=== PATIENT | female | born 1945 | race Caucasian/White ===

== ENCOUNTER 2017-01-28 01:22 | Observation (INO) | payer MEDICARE, MEDICAID ==
[2017-01-28] VITALS (37 sets, daily range): BP systolic 93–132; BP diastolic 49–85; PULSE 79–102; RESP 16–30; Ht 157.5 cm; Wt 75.4 kg
[~2017-01-28] VITALS: Ht 157.5 cm; Wt 75.4 kg
[~2017-01-28 01:22] MED LIST: ASPI81TA3 PO; ERGO500014 PO; FER325 PO; FOLI-49 PO; LOSA1TAB20 PO; METO-429 PO
[2017-01-28] MEDS ORDERED: FUROSEMIDE 20 MG INJ IV STA (01:24)
[2017-01-28] MEDS ORDERED: NITROGLYCERIN 50 MG/D5W (PMX) 250 ML IV STA (01:24)
[2017-01-28] MEDS ORDERED: ENALAPRILAT 1.25 MG INJ IV STA (01:24)
[2017-01-28 01:55] LABS: ADD SCAN DIFF NO
[2017-01-28 02:03] LABS: ABNORMAL IP MESSAGE 1; HEMATOCRIT 34.3 % (37.0-47.0); HEMOGLOBIN 10.3 g/dl (12.0-16.0); MEAN CORPUSCULAR HEMOGLOBIN 25.9 pg (29.0-33.0); MEAN CORPUSCULAR VOLUME 86.2 fl (82.0-101.0); PLATELET COUNT 118 10^3/UL (140-415); RED BLOOD COUNT 3.98 10^6/ul (4.20-5.40); RED CELL DISTRIBUTION WIDTH 18.4 % (11.5-14.5); WHITE BLOOD COUNT 6.9 10^3/ul (4.8-10.8)
[2017-01-28 02:07] LABS: INR 0.88; PROTIME 11.9 Sec (12.2-14.2); PT RATIO 0.9
[2017-01-28 02:08] LABS: POTASSIUM 3.7 mmol/L (3.5-5.1)
[2017-01-28 02:10] LABS: CREATININE 0.48 mg/dl (0.44-1.00)
[2017-01-28 02:11] LABS: CALCIUM 8.8 mg/dl (8.4-10.2)
[2017-01-28 02:23] LABS: TROPONIN-I 0.052 ng/ml (0.00-0.12)
--- NOTE | 2017-01-28 02:27 | RADRPT ---
PROCEDURE: XR Chest. CLINICAL INDICATION: Chest pain. TECHNIQUE: Single frontal view of the chest was obtained COMPARISON: Chest dated 08/04/2016 FINDINGS: Cardiomegaly and atherosclerotic calcifications in the thoracic aorta. Pulmonary vascular ingestion bilateral patchy air space disease with new bilateral pleural effusions, right greater than left. There is no pneumothorax. IMPRESSION: Moderate failure. RPTAT: [facility] Physician Carlos Date Time Electronically viewed and signed by Horace Aguila Physician on 01/28/2017 02:26 RS/
[2017-01-28 03:00] LABS: BASOPHIL # 0.1 10^3/ul (0.0-0.1); EOSINOPHILS # 0.3 10^3/ul (0.0-0.5); LYMPHOCYTES # 1.4 10^3/ul (0.8-2.9); MONOCYTE # 0.2 10^3/ul (0.3-0.9); NEUTROPHIL # 4.2 10^3/ul (1.6-7.5)
[2017-01-28] MEDS ORDERED: ACETAMINOPHEN 500 MG TAB PO PRN (03:00)
[2017-01-28] MEDS ORDERED: ERGOCALCIFEROL 50,000 UNIT CAP PO SCH (03:00)
[2017-01-28] MEDS: ALBUTEROL 0.083% (NEB) 2.5 MG/3 ML AMP HHN SCH ×3 (03:00→16:00)
[2017-01-28 03:01] LABS: PLATELET ESTIMATE PLT APPEAR ADEQUATE
--- NOTE | 2017-01-28 03:12 | ERA ---
ER Documentation Chief Complaint Date/Time DATE: 01/28/17 TIME: 03:08 Chief Complaint SOB,hx CHF HPI This is a 71-year-old female who presents to the emergency room for evaluation of shortness of breath. This patient was brought in by ambulance from home. She was placed on a CPAP in route to the hospital due to respiratory distress and hypoxia. According to EMS this patient's oxygen level was 84% on room air. The patient was gasping for air and was given nitroglycerin prior to arrival and was placed on a CPAP. The patient does have a history of non-Hodgkin's lymphoma and denies any fever. Patient is denying any chest pain at this time. ROS All systems reviewed and are negative except as per history of present illness. Medications Home Meds Reported Medications Ferrous Sulfate* (Ferrous Sulfate*) 325 Mg Tabec, 325 MG PO DAILY, TAB 08/04/16 Metoprolol Tartrate* (Lopressor*) 50 Mg Tab, 50 MG PO BID, #60 TAB 08/04/16 Folic Acid* (Folic Acid*) 1 Mg Tablet, 1 MG PO DAILY, TAB 08/04/16 Ergocalciferol* (Drisdol* (Vitamin D2)) 50,000 Unit Capsule, 30672 UNIT PO Q7D, CAP 08/04/16 Losartan-Hydrochlorothiazide (Losartan-HCTZ) 100-25 Mg Tab, 1 TAB PO DAILY, TAB 08/04/16 Aspirin* (Aspirin* Chew) 81 Mg Tab.chew, 81 MG PO DAILY, TAB.CHEW 08/04/16 Allergies Allergies: Coded Allergies: vancomycin (Verified Allergy, Mild, REDNESS AND ITCHING, 08/04/16) Iodine and Iodide Containing Produc (Verified Allergy, Unknown, 01/28/17) PMhx/Soc History of Surgery: Yes (stent placement x3) Anesthesia Reaction: No Hx 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 Disorder: No Hx Respiratory Disorders: No Hx Cardiac Disorders: Yes (MD, HTN, Cardiac stents x3) Hx Psychiatric Problems: Yes (Anxiety, depression) Hx Miscellaneous Medical Probl: Yes (Anemia, Lymphoma) Hx Alcohol Use: No Hx Substance Use: No Hx Tobacco Use: No Smoking Status: Never smoker Physical Exam Vitals Vital Signs Date Time Temp Pulse Resp B/P Pulse Ox O2 Delivery O2 Flow Rate FiO2 01/28/17 02:25 85 20 120/71 100 01/28/17 02:04 83 24 98/55 100 CPAP 01/28/17 01:28 98.9 117 28 179/130 99 01/28/17 01:25 102 100 50 Physical Exam INITIAL VITAL SIGNS: Reviewed by me GENERAL: The patient is well developed however she is in moderate respiratory distress on a CPAP HEENT: Pupils equal, round, and reactive to light. EOMI. There is no scleral icterus. NECK: C-spine is soft and supple, there is no meningismus. There is no cervical lymphadenopathy. LUNGS: Coarse breath sounds bilaterally with diffuse rales auscultated in the upper and lower lobes, tachypnea HEART: Tachycardic, no murmurs, clicks, rubs or gallops. ABDOMEN: Soft, non-tender, non-distended. There are bowel sounds in all four quadrants. No rebound or guarding. EXTREMITIES: There is no peripheral cyanosis or edema. No focal swelling or erythema. NEUROLOGICAL: The patient moves all four extremities with 5/5 strength. Cranial nerves II - XII are intact. Normal gait. Alert and oriented SKIN: There is no apparent rash or petechiae. HEME/LYMPHATIC: There is no evidence of excessive bruising or lymphedema. PSYCHIATRIC: The patient does not appear anxious or depressed. Result Diagram: 01/28/17 0131 01/28/17 0131 Results 24 hrs Laboratory Tests Test 01/28/17 01:31 Activated Partial Thromboplast Time Pending Anion Gap 19 B-Type Natriuretic Peptide 3600PG/ML Band Neutrophils % 4.0% Basophils # 0.110^3/ul Basophils % 1.0% Blood Urea Nitrogen 13mg/dl Calcium Level 8.8mg/dl Carbon Dioxide Level 22mmol/L Chloride Level 105mmol/L Creatinine 0.48mg/dl Eosinophils # 0.310^3/ul Eosinophils % 4.0% Glucose Level 159mg/dl Hematocrit 34.3% Hemoglobin 10.3g/dl INR International Normalized Ratio 0.88 Lymphocytes # 1.410^3/ul Lymphocytes % 21.0% Mean Corpuscular Hemoglobin 25.9pg Mean Corpuscular Hemoglobin Concent 30.0g/dl Mean Corpuscular Volume 86.2fl Mean Platelet Volume fl Monocytes # 0.210^3/ul Monocytes % 3.0% Neutrophils # 4.210^3/ul Neutrophils % 61.0% Platelet Count 56050^3/UL Platelet Estimate PLT APPEAR ADEQUATE Potassium Level 3.7mmol/L Prothrombin Time 11.9Sec Prothrombin Time Ratio 0.9 Reactive Lymphocytes % 6.0% Red Blood Count 3.9810^6/ul Red Cell Distribution Width 18.4% Sodium Level 142mmol/L Troponin I 0.052ng/ml White Blood Count 6.910^3/ul Current Medications Medications (Trade) Dose Ordered Sig/Rafa Route PRN Reason Start Time Stop Time Status Last Admin Dose Admin Enalaprilat 1.25 mg 1.25 mg ONCE STAT IV 01/28/17 01:24 01/28/17 01:26 DC 01/28/17 01:53 Nitroglycerin/ Dextrose (Nitroglycerin 50 Mg/D5W (Pmx)) 250 ml @ 6 mls/hr ONCE STAT IV 01/28/17 01:24 01/29/17 19:03 01/28/17 01:54 Furosemide (Lasix) 60 mg ONCE STAT IV 01/28/17 01:24 01/28/17 01:26 DC 01/28/17 01:55 Procedures/MDM Chest X-ray 1V Interpreted by me: Soft Tissue: Pulmonary vascular congestion with mild pulmonary effusions Bones: No acute abnormalities Mediastinum/Cardiac Silhouette/Lungs: [No acute abnormalities] EKG: Rate/Rhythm: [Normal Sinus Rhythm] QRS, ST, T-waves: [No changes consistent w/ acute ischemia] Impression: [No evidence of ischemia or arrhythmia] This 71-year-old female presents to the emergency room for evaluation of shortness of breath. When I evaluated this patient she had coarse breath sounds bilaterally and was in moderate respiratory distress. Her pulse ox was 84% prior to arrival in the emergency room. This patient was on a CPAP when I evaluated her. I transitioned her to BiPAP. The patient was started on nitroglycerin drip. She was given Vasotec 1.25 mg, was given 40 mg of Lasix. Pulmonary evaluation this patient states she is feeling better at this time. Her nitroglycerin drip was at 100 g and she will be placed in the intensive care unit at this time for acute hypoxic respiratory failure, acute CHF exacerbation. The patient will be admitted to her primary care physician, Dr. Aguilar. Critical Care: Excluding all billable procedures Time: 36 minutes Treatments/Evaluations: Emergent and rapid respiratory assessment and management with continuous monitoring. Advanced airway equipment at the ready, while the patient's respiratory symptoms were stabilized. Departure Diagnosis: Primary Impression: Acute and chronic respiratory failure with hypoxia Additional Impressions: Acute decompensated heart failure Thrombocytopenia Normocytic anemia Condition: Stable SORAIDA COTO DO Jan 28, 2017 03:12
--- NOTE | 2017-01-28 03:24 | HP ---
Date/Time of Note Date/Time of Note DATE: 01/28/17 TIME: 03:24 Assessment/Plan VTE Prophylaxis VTE Prophylaxis Intervention: ambulation, anti-embolic stocking, LMWH Lines/Catheters IV Catheter Type (from Nrs): [place] [employer] Central line still needed: No Urinary Cath still in place: Yes Reason Cath still needed: urinary retention Assessment/Plan Assessment/Plan 1. Severe respiratory distress 2.Elevated D-dimer-r/o PE. 3. Hypertension, now hypotensive on NTG drip-will taper down. 4. Pleural effusion 5. History of Hodgkin lymphoma- s/p chemothereapy and hydration 3-4 days ago. 6. Osteoarthritis with pain syndrome 7. Anxiety disorder. 8. Depression-s/p loss of . 9. Urinary incontinence. 10. Osteoporosis. 11. Kyphosis. 12. Postmenopausal syndrome. 13. Anemia with nl iron. 14. Brain atrophy on CT. 15. Left sphenoid sinusitis on CT. 16. Left ventricular hypertrophy. 17. Urinary incontinence. 18.Cerebrovascular accident, with left facial drooling, left facial weakness, with slurred speech and dysphagia. Mild left upper extremity weakness. 19. S/P forceful; diuresis. 20.Medication noncompliance. 21. HPI/ROS Admit Date/Time Admit Date/Time Severe sob. This patient was brought in by ambulance from home. She was placed on a CPAP in route to the hospital due to respiratory distress and hypoxia. EMS checked oxygen level was 84% on room air. The patient was grasping for air and was given nitroglycerin prior to arrival. The patient does have a history of non-Hodgkin's lymphoma.She was feeling feverish but her temp. was normal. Patient is having chest pain on and off with fear of becaouse there was no air. "If no paramedics and ER I will not be alive". ROS Subjective hx not possible: pt critical Constitutional: diaphoresis, disoriented, fatigue, improved, nausea, poor po, weight change (2 lb x 5 days.), No chills, No febrile, No no complaints, No other Eyes: redness, visual change, No discharge, No no complaints, No other, No pain ENT: congestion, dysphagia, No bleeding, No discharge, No no complaints, No other, No pain, No sore throat Respiratory: cough, shortness of breath, No no complaints, No other, No pain, No pleuritic pain, No sputum, No wheezing Cardiovascular: chest pain, lightheadedness, orthopenea, palpitations, paroxysmal nocturnal dyspnea, No edema, No no complaints, No other Gastrointestinal: constipation, decreased appetite, flatus, nausea, No blood, No diarrhea, No no complaints, No other, No pain, No passing stool , No vomiting Genitourinary: dysuria Musculoskeletal: bone/joint pain, neck pain Skin: pruritis, skin lesions (tags.), No bruising, No erythema, No laceration, No no complaints, No other, No rash Neurologic: confusion, dizziness, headache Endocrine: dry skin, polydypsia, weight change Lymphatic: No adenopathy, No lymphadema, No no complaints, No other, No tender nodes Psychological: anxiety, confusion, depression, No nl mood/affect, No no complaints, No other, No suicidal Immunologic: No immunodeficiency, No no complaints, No other, No pruritis, No rhinitis, No urticaria PMH/Family/Social Past Medical History Medical History: angina, colitis, congestive heart failure, coronary artery disease, deep vein thrombosis, diabetes, GERD, high cholesterol, hypertension, irritable bowel syndrome, urinary tract infection Family History Significant Family History: heart disease, diabetes, hypertension Social History Alcohol Use: none Smoking Status: Never smoker Drug Use: none Exam/Review of Systems Vital Signs Vitals Vital Signs Date Time Temp Pulse Resp B/P Pulse Ox O2 Delivery O2 Flow Rate FiO2 01/28/17 02:25 85 20 120/71 100 01/28/17 02:04 CPAP 01/28/17 01:28 98.9 01/28/17 01:25 50 Exam Constitutional: alert, distress, frail, oriented, well developed, No non-verbal, No other Psych: anxiety, confusion, depression, No nl mood/affect, No no complaints, No other, No suicidal Head: atraumatic, No hematomas, No lacerations, No normocephalic, No other Eyes: EOMI, PERRL, nl lids, other, No fundi, disc, No icteric, No nl conjunctiva, No nl sclera ENMT: mucosa pink and moist (pale.), No intubated, No nl external ears & nose, No nl lips & teeth, No nl nasal mucosa & septum, No other, No tympanic membranes Neck: bruits, jvd, nuchal rigidity, No masses, No non-tender, No other, No supple, No thyromegaly Respiratory: congested cough, crackles/rales, diminished breath sounds, labored breathing, No clear to auscultation, No intercostal retraction, No normal air movement, No other, No respirations, No tactile fremitus, No wheezing Cardiovascular: bruits, edema (trace.), irregular rhythm (4 complex vt. on tracing.), jugular venous distention (JVD), systolic murmur Gastrointestinal: distended, nl liver, spleen, soft, No ascites, No bowel sounds, No firm, No hepatomegaly, No mass, No non-tender , No other, No rebound or guarding, No splenomegaly, No surgical scars, No tender Genitourinary - Female: other (refused.) Musculoskeletal: joint tenderness, muscle tone, muscle weakness, nl gait and stance, No nl extremities to inspection, No other, No range of motion, No spine non- tender, No swelling Extremities: calf tenderness, other (restless leg syndrome.) 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: COUNSELING AIDE II-XII intact (decreased hearing and vision.), confused, lethargic Skin: diaphoresis Labs Result Diagram: 01/28/17 0131 01/28/17 0131 Medications Medications Current Medications Acetaminophen (Tylenol Tab) 500 mg Q8 PRN PO pain and temp. more then 99F; Start 01/28/17 at 03:00 Aspirin (Aspirin) 81 mg DAILY PO ; Start 01/28/17 at 09:00 Ergocalciferol (Drisdol) 50,000 unit Q7D PO ; Start 01/28/17 at 03:00; Status UNV Ferrous Sulfate (Ferrous Sulfate (Ec)) 325 mg DAILY PO ; Start 01/28/17 at 09:00 ; Status UNV Folic Acid (Folic Acid) 1 mg DAILY PO ; Start 01/28/17 at 09:00; Status UNV Metoprolol Tartrate (Lopressor) 50 mg BID PO ; Start 01/28/17 at 09:00 Miscellaneous Information 1 tab DAILY PO ; Start 01/28/17 at 09:00; Status UNV PEDRO KRUSE MD Jan 28, 2017 03:24
[2017-01-28] MEDS ORDERED: ENOXAPARIN 80 MG/0.8 ML SYG SC SCH (03:30)
[2017-01-28 03:34] LABS: PARTIAL THROMBOPLASTIN TIME 21.8 Sec (25.0-35.0)
[2017-01-28 04:29] LABS: AADO2 Arterial 83.6 mmHg (7.0-24.0); Arterial Base Excess -1.3 mmol/L (-3.0-3); Arterial COHb 0.5 % (0.0-3.0); Arterial Fraction of Oxyhgb 95.1 % (93.0-99.0); Arterial HCO3 23.2 mmol/L (22.0-26.0); Arterial MetHb 0.5 % (0.0-1.5); Arterial Total Hemglobin 11.7 g/dl (12.0-18.0); MODE NASAL CANNULA
[2017-01-28 05:51] LABS: ADD SCAN DIFF NO
[2017-01-28 05:59] LABS: ABNORMAL IP MESSAGE 1; HEMATOCRIT 31.9 % (37.0-47.0); HEMOGLOBIN 9.8 g/dl (12.0-16.0); MEAN CORPUSCULAR HGB CONC 30.7 g/dl (32.0-37.0); MEAN CORPUSCULAR VOLUME 84.6 fl (82.0-101.0); MEAN PLATELET VOLUME 12.6 fl (7.4-10.4); PLATELET COUNT 136 10^3/UL (140-415); RED BLOOD COUNT 3.77 10^6/ul (4.20-5.40); RED CELL DISTRIBUTION WIDTH 18.2 % (11.5-14.5); WHITE BLOOD COUNT 5.3 10^3/ul (4.8-10.8)
[2017-01-28 06:11] LABS: D-DIMER 1722.75 ng/ml (<460)
[2017-01-28] MEDS: PANTOPRAZOLE 40 MG INJ IV SCH (06:11)
[2017-01-28] MEDS: FUROSEMIDE 20 MG INJ IV SCH ×3 (06:12→22:03)
[2017-01-28 06:22] LABS: IRON 143 ug/dl (35-150)
[2017-01-28 06:32] LABS: TOTAL IRON BINDING CAPACITY 318 ug/dl (241-421)
[2017-01-28 06:54] LABS: ALBUMIN 3.6 g/dl (3.3-4.9)
[2017-01-28 06:55] LABS: POTASSIUM 3.8 mmol/L (3.5-5.1)
[2017-01-28 06:57] LABS: ALBUMIN/GLOBULIN RATIO 1.16; BILIRUBIN,INDIRECT 0.2 mg/dl (0-1.1); BILIRUBIN,TOTAL 0.2 mg/dl (0.2-1.3); CREATININE 0.47 mg/dl (0.44-1.00); TOTAL PROTEIN 6.7 g/dl (6.1-8.1)
[2017-01-28 06:58] LABS: CALCIUM 8.9 mg/dl (8.4-10.2); MAGNESIUM 1.8 mg/dl (1.7-2.5)
[2017-01-28] MEDS: IPRATROPIUM (NEB) 0.5 MG/2.5 ML AMP HHN SCH ×3 (08:00→16:00)
[2017-01-28 08:09] LABS: CHOL/HDL RATIO 2.8 RATIO
[2017-01-28 08:49] LABS: THYROID STIMULATING HORMONE 6.2 MIU/L (0.465-4.680)
[2017-01-28] MEDS ORDERED: MAGNESIUM SULFATE (GM) 50% 2 ML INJ IVPB SCH (09:00)
[2017-01-28] MEDS: MAG SULFATE 2GM IN 50 ML IVPB SCH (09:18)
[2017-01-28] MEDS: FOLIC ACID 1 MG TAB PO SCH (09:18)
[2017-01-28] MEDS: HYDROCHLOROTHIAZIDE 25 MG TAB PO SCH (09:18)
[2017-01-28] MEDS: LOSARTAN 50 MG TAB PO SCH (09:19)
[2017-01-28] MEDS: FERROUS SULFATE (EC) 325 MG TAB PO SCH (09:20)
[2017-01-28] MEDS: ASPIRIN 81 MG TAB PO SCH (09:20)
[2017-01-28] MEDS: METOPROLOL 50 MG TAB PO SCH ×2 (09:21→21:06)
[2017-01-28 09:32] LABS: CK-MB 1.12 ng/ml (0.0-2.4)
[2017-01-28 09:35] LABS: TROPONIN-I 0.081 ng/ml (0.00-0.12)
--- NOTE | 2017-01-28 10:44 | RADRPT ---
PROCEDURE: US bilateral lower extremity veins. CLINICAL INDICATION: Bilateral leg pain and swelling. TECHNIQUE: Multiple longitudinal and transverse images of the bilateral lower extremity veins were obtained with velazquez scale and color Doppler imaging. The common femoral vein, femoral vein, and popl iteal vein were evaluated. 2D grayscale measurements with compression sonography, color Doppler, and pulsed Doppler with augmentation. COMPARISON: No prior studies are available for comparison. FINDINGS: The bilateral common femoral, femoral and popliteal veins are normally compressible throughout. Col or flow demonstrates normal filling of the vessels. Normal waveforms are visualized and there is no rmal response to augmentation. IMPRESSION: 1. No evidence of deep vein thrombosis involving either lower extremity. RPTAT: QQ .Samson Cordova MD, MD Date Time Electronically viewed and signed by .Samson Cordova MD, on 01/28/2017 10:44 .R/
[2017-01-28 12:18] LABS: BASOPHIL # 0.1 10^3/ul (0.0-0.1); EOSINOPHILS # 0.1 10^3/ul (0.0-0.5); LYMPHOCYTES # 0.6 10^3/ul (0.8-2.9); MONOCYTE # 0.1 10^3/ul (0.3-0.9); NEUTROPHIL # 3.1 10^3/ul (1.6-7.5)
[2017-01-28 13:53] LABS: CK-MB 0.92 ng/ml (0.0-2.4)
[2017-01-28 13:56] LABS: TROPONIN-I 0.037 ng/ml (0.00-0.12)
--- NOTE | 2017-01-28 22:25 | CONS ---
Date/Time of Note Date/Time of Note DATE: 01/28/17 TIME: 22:08 Assessment/Plan Assessment/Plan Chief Complaint/Hosp Course Hodgkin lymphoma- s/p chemotherapy and hydration 3-4 days ago. Anemia with nl iron. N- CYTIC WITH INCREASED RDW monitor THROMBOCYTOPENIA POST CHEMO MONITOR NO INDICATION FOR TRANSFUSION Severe respiratory distress- SOB Pulmonary vascular ingestion bilateral patchy air space disease with new bilateral pleural effusions, right greater than left. RECENT ECHO- N LVEF CARD AND PULM EVAL Elevated D-dimer-r/o PE. PT AGREED TO DO CT IN COUPLE DAYS Hypertension, was hypotensive on NTG drip Pleural effusions Osteoarthritis with pain syndrome Anxiety disorder. Depression-s/p loss of . Urinary incontinence. Osteoporosis. Kyphosis. Postmenopausal syndrome. Brain atrophy on CT. Left sphenoid sinusitis on CT. Left ventricular hypertrophy. Urinary incontinence. Cerebrovascular accident, with left facial drooling, left facial weakness, with slurred speech and dysphagia. Mild left upper extremity weakness. S/P forceful; diuresis. Medication noncompliance. Problems: Consultation Date/Type/Reason Admit Date/Time This is a 71-year-old female who presents to the emergency room for evaluation of shortness of breath. This patient was brought in by ambulance from home. She was placed on a CPAP in route to the hospital due to respiratory distress and hypoxia. According to EMS this patient's oxygen level was 84% on room air. The patient was gasping for air and was given nitroglycerin prior to arrival and was placed on a CPAP. The patient does have a history of Hodgkin's lymphoma POST CHEMO Date of Consultation: Jan 28, 2017 Type of Consultation: [facility] Reason for Consultation HD, SOB ANEMIA THROMBOCYTOPENIA Referring Provider: PEDRO KRUSE MD Eyes: redness, visual change, No discharge, No no complaints, No other, No pain ENT: congestion, dysphagia, No bleeding, No discharge, No no complaints, No other, No pain, No sore throat Respiratory: cough, shortness of breath, No no complaints, No other, No pain, No pleuritic pain, No sputum, No wheezing Cardiovascular: chest pain, lightheadedness, orthopenea, palpitations, paroxysmal nocturnal dyspnea, No edema, No no complaints, No other Gastrointestinal: constipation, decreased appetite, flatus, nausea, No blood, No diarrhea, No no complaints, No other, No pain, No passing stool , No vomiting Genitourinary: dysuria Musculoskeletal: bone/joint pain, neck pain Skin: pruritis, skin lesions (tags.), No bruising, No erythema, No laceration, No no complaints, No other, No rash Neurologic: confusion, dizziness, headache Lymphatic: No adenopathy, No lymphadema, No no complaints, No other, No tender nodes Psychological: anxiety, confusion, depression, No nl mood/affect, No no complaints, No other, No suicidal Immunologic: No immunodeficiency, No no complaints, No other, No pruritis, No rhinitis, No urticaria Past Medical History Medical History: angina, colitis, congestive heart failure, coronary artery disease, deep vein thrombosis, diabetes, GERD, high cholesterol, hypertension, irritable bowel syndrome, urinary tract infection Social History Alcohol Use: none Smoking Status: Never smoker Drug Use: none Exam/Review of Systems Vital Signs Vitals Vital Signs Date Time Temp Pulse Resp B/P Pulse Ox O2 Delivery O2 Flow Rate FiO2 01/28/17 22:00 100 22 125/70 95 01/28/17 20:00 98.3 01/28/17 19:00 Room Air 01/28/17 15:19 21 01/28/17 10:00 2.0 Intake and Output 01/27/17 01/27/17 01/28/17 15:00 23:00 07:00 Intake Total 87.0 ml Output Total 1500 ml Balance -1413.0 ml Exam ROS All systems reviewed and are negative except as per history of present illness. Medications Home Meds Reported Medications Ferrous Sulfate* (Ferrous Sulfate*) 325 Mg Tabec, 325 MG PO DAILY, TAB 08/04/16 Metoprolol Tartrate* (Lopressor*) 50 Mg Tab, 50 MG PO BID, #60 TAB 08/04/16 Folic Acid* (Folic Acid*) 1 Mg Tablet, 1 MG PO DAILY, TAB 08/04/16 Ergocalciferol* (Drisdol* (Vitamin D2)) 50,000 Unit Capsule, 97689 UNIT PO Q7D, CAP 08/04/16 Losartan-Hydrochlorothiazide (Losartan-HCTZ) 100-25 Mg Tab, 1 TAB PO DAILY, TAB 08/04/16 Aspirin* (Aspirin* Chew) 81 Mg Tab.chew, 81 MG PO DAILY, TAB.CHEW 08/04/16 Allergies Allergies: Coded Allergies: vancomycin (Verified Allergy, Mild, REDNESS AND ITCHING, 08/04/16) Iodine and Iodide Containing Produc (Verified Allergy, Unknown, 01/28/17) PMhx/Soc History of Surgery: Yes (stent placement x3) Anesthesia Reaction: No Hx 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 Disorder: No Hx Respiratory Disorders: No Hx Cardiac Disorders: Yes (MN, HTN, Cardiac stents x3) Hx Psychiatric Problems: Yes (Anxiety, depression) Hx Miscellaneous Medical Probl: Yes (Anemia, Lymphoma) Hx Alcohol Use: No Hx Substance Use: No Hx Tobacco Use: No Smoking Status: Never smoker Results Result Diagram: 01/28/17 0534 01/28/17 0534 Results 24 hrs Laboratory Tests Test 01/28/17 01:31 01/28/17 02:50 01/28/17 03:07 01/28/17 05:34 Anion Gap 19 H 18 H B-Type Natriuretic Peptide 3600 H Band Neutrophils % 4.0 25.0 H Basophils # 0.1 0.1 Basophils % 1.0 1.0 Blood Urea Nitrogen 13 14 Calcium Level 8.8 8.9 Carbon Dioxide Level 22 25 Chloride Level 105 104 Creatinine 0.48 0.47 Eosinophils # 0.3 0.1 Eosinophils % 4.0 2.0 Glucose Level 159 111 # Hematocrit 34.3 L 31.9 L Hemoglobin 10.3 L 9.8 L Lymphocytes # 1.4 0.6 L Lymphocytes % 21.0 11.0 L Mean Corpuscular Hemoglobin 25.9 L 26.0 L Mean Corpuscular Hemoglobin Concent 30.0 L 30.7 L Mean Corpuscular Volume 86.2 84.6 Mean Platelet Volume 12.6 #H Monocytes # 0.2 L 0.1 L Monocytes % 3.0 1.0 Neutrophils # 4.2 3.1 Neutrophils % 61.0 58.0 Platelet Count 118 L 136 L Platelet Estimate PLT APPEAR ADEQUATE Potassium Level 3.7 3.8 Reactive Lymphocytes % 6.0 Red Blood Count 3.98 L 3.77 L Red Cell Distribution Width 18.4 H 18.2 H Sodium Level 142 143 Troponin I 0.052 0.035 White Blood Count 6.9 # 5.3 # Activated Partial Thromboplast Time 21.8 L INR International Normalized Ratio 0.88 Prothrombin Time 11.9 L Prothrombin Time Ratio 0.9 Arterial Blood HCO3 23.2 Arterial Blood Base Excess -1.3 Arterial Blood Oxygen Saturation 96.1 Pako Test N/A Arterial Blood Gas Puncture Site Right Brachial Arterial Blood Carboxyhemoglobin 0.5 Arterial Blood Date Drawn 01/28/2017 4:16:42 AM Arterial Blood Methemoglobin 0.5 Arterial Blood pCO2 (Temp correct) 38.2 Arterial Blood pH (Temp corrected) 7.402 Arterial Blood pO2 (Temp corrected) 85.4 Blood Gas A-a O2 Differential 83.6 H Blood Gas Modality NASAL CANNULA Blood Gas Notified Time 01/28/2017 4:29:26 AM Blood Gas Notified Whom DENISE Blood Gas Specimen Source Blood arterial Blood Gas Temperature 37.0 FiO2 30.0 Oxyhemoglobin Percent 95.1 Total Hemoglobin 11.7 L Alanine Aminotransferase (ALT/SGPT) 30 Albumin 3.6 Albumin/Globulin Ratio 1.16 Alkaline Phosphatase 88 Aspartate Amino Transf (AST/SGOT) 28 Cholesterol Level 164 Cholesterol/HDL Ratio 2.8 D-Dimer 1722.75 #H D-Dimer Comment Direct Bilirubin 0.00 Giant Platelets FEW Globulin 3.10 HDL Cholesterol 58 Indirect Bilirubin 0.2 Iron Level 143 LDL Cholesterol, Calculated 75 Large Platelets FEW Magnesium Level 1.8 Percent Iron Saturation 45 Promyelocytes # 0.1 Promyelocytes % 2.0 H Thyroid Stimulating Hormone (TSH) 6.200 H Total Bilirubin 0.2 Total Iron Binding Capacity 318 Total Protein 6.7 Triglycerides Level 153 H Test 01/28/17 08:34 01/28/17 13:15 01/28/17 19:10 Creatine Kinase 29 28 Creatine Kinase Index 3.9 3.3 Creatinine Kinase MB (Mass) 1.12 0.92 Troponin I 0.081 0.037 0.028 Medications Medications Current Medications Acetaminophen (Tylenol Tab) 500 mg Q8 PRN PO pain and temp. more then 99F Last administered on 01/28/17 12:55; Admin Dose 500 MG; Start 01/28/17 at 03:00 Aspirin (Aspirin) 81 mg DAILY PO Last administered on 01/28/17 09:20; Admin Dose 81 MG; Start 01/28/17 at 09:00 Ferrous Sulfate (Ferrous Sulfate (Ec)) 325 mg DAILY PO Last administered on 09:20; Admin Dose 325 MG; Start 01/28/17 at 09:00 Folic Acid (Folic Acid) 1 mg DAILY PO Last administered on 01/28/17 09:18; Admin Dose 1 MG; Start 01/28/17 at 09:00 Metoprolol Tartrate (Lopressor) 50 mg BID PO Last administered on 01/28/17 21: 06; Admin Dose 50 MG; Start 01/28/17 at 09:00 Losartan Potassium (Cozaar) 100 mg DAILY PO Last administered on 01/28/17 09: 19; Admin Dose 100 MG; Start 01/28/17 at 09:00 Furosemide (Lasix) 20 mg Q8 IV Last administered on 01/28/17 22:03; Admin Dose 20 MG; Start 01/28/17 at 06:00; Stop 01/29/17 at 19:00 Enoxaparin Sodium (Lovenox) 75 mg Q24H SC Last administered on 01/28/17 06:19 ; Admin Dose 75 MG; Start 01/28/17 at 03:30 Pantoprazole (Protonix Iv) 40 mg DAILY@06 IV Last administered on 01/28/17 06: 11; Admin Dose 40 MG; Start 01/28/17 at 06:00 Hydrochlorothiazide 25 mg 25 mg DAILY PO Last administered on 01/28/17 09:18; Admin Dose 25 MG; Start 01/28/17 at 09:00 Magnesium Sulfate (Magnesium Sulfate 2 Gm/50 ml) 50 ml @ 25 mls/hr AM IVPB Last administered on 01/28/17 09:18; Admin Dose 25 MLS/HR; Start 01/28/17 at 09 :00; Stop 01/29/17 at 09:00 Procedures Procedures [place] [id number] Radiology Main Line: [phone] DIAGNOSTIC IMAGING REPORT Patient: RAJEEV QUICK : 1945 Age: 71 Sex: F MR #: [id number] DOS: 01/28/17 0124 Ordering MD: SORAIDA COTO DO Location: E/R Room/Bed: PROCEDURE: XR Chest. CLINICAL INDICATION: Chest pain. TECHNIQUE: Single frontal view of the chest was obtained COMPARISON: Chest dated 08/04/2016 FINDINGS: Cardiomegaly and atherosclerotic calcifications in the thoracic aorta. Pulmonary vascular ingestion bilateral patchy air space disease with new bilateral pleural effusions, right greater than left. There is no pneumothorax. IMPRESSION: Moderate failure. RPTAT: [facility] Physician Carlos Date Time Electronically viewed and signed by Physician Carlos on 01/28/2017 02:26 RS/ CC: SORAIDA COTO [place] [id number] Radiology Main Line: [phone] DIAGNOSTIC IMAGING REPORT Patient: RAJEEV QUICK : 1945 Age: 71 Sex: F MR #: [id number] DOS: 01/28/17 0000 Ordering MD: PEDRO KRUSE MD Location: ICU Room/Bed: [facility] PROCEDURE: US bilateral lower extremity veins. CLINICAL INDICATION: Bilateral leg pain and swelling. TECHNIQUE: Multiple longitudinal and transverse images of the bilateral lower extremity veins were obtained with velazquez scale and color Doppler imaging. The common femoral vein, femoral vein, and popliteal vein were evaluated. 2D grayscale measurements with compression sonography, color Doppler, and pulsed Doppler with augmentation. COMPARISON: No prior studies are available for comparison. FINDINGS: The bilateral common femoral, femoral and popliteal veins are normally compressible throughout. Color flow demonstrates normal filling of the vessels. Normal waveforms are visualized and there is normal response to augmentation. IMPRESSION: 1. No evidence of deep vein thrombosis involving either lower extremity. RPTAT: QQ .Samson Cordova MD, Date Time Electronically viewed and signed by .Samson Cordova MD, MD on 01/28/2017 10:44 .R/ CC: PEDRO KRUSE MD, VERA M MD Jan 28, 2017 22:18
[2017-01-29] VITALS (15 sets, daily range): BP systolic 99–126; BP diastolic 52–81; PULSE 85–118; RESP 14–25
[2017-01-29] MEDS: IPRATROPIUM (NEB) 0.5 MG/2.5 ML AMP HHN SCH ×2 (00:43→08:43)
[2017-01-29] MEDS: ALBUTEROL 0.083% (NEB) 2.5 MG/3 ML AMP HHN SCH ×2 (00:43→08:43)
[2017-01-29] MEDS ORDERED: ENOXAPARIN 80 MG/0.8 ML SYG SC SCH (06:00)
[2017-01-29] MEDS: PANTOPRAZOLE 40 MG INJ IV SCH (06:28)
[2017-01-29] MEDS: FUROSEMIDE 20 MG INJ IV SCH (06:28)
[2017-01-29] MEDS: MAG SULFATE 2GM IN 50 ML IVPB SCH (09:11)
[2017-01-29] MEDS: FOLIC ACID 1 MG TAB PO SCH (09:12)
[2017-01-29] MEDS: ASPIRIN 81 MG TAB PO SCH (09:12)
[2017-01-29] MEDS: HYDROCHLOROTHIAZIDE 25 MG TAB PO SCH (09:12)
[2017-01-29] MEDS: FERROUS SULFATE (EC) 325 MG TAB PO SCH (09:12)
[2017-01-29] MEDS: METOPROLOL 50 MG TAB PO SCH (09:13)
[2017-01-29] MEDS: LOSARTAN 50 MG TAB PO SCH (09:13)
--- NOTE | 2017-01-29 09:24 | CONS ---
Date/Time of Note Date/Time of Note DATE: 01/29/17 TIME: 09:23 Assessment/Plan Assessment/Plan Chief Complaint/Hosp Course Hodgkin lymphoma- s/p chemotherapy and hydration Anemia with nl iron. N- CYTIC WITH INCREASED RDW monitor THROMBOCYTOPENIA POST CHEMO MONITOR NO INDICATION FOR TRANSFUSION Severe respiratory distress- SOB Pulmonary vascular ingestion bilateral patchy air space disease with new bilateral pleural effusions, right greater than left. RECENT ECHO- N LVEF CARD AND PULM EVAL IMPROVED Elevated D-dimer-r/o PE. PT AGREED TO DO CT IN COUPLE DAYS Pleural effusions REPEAT CXR Hypertension, was hypotensive on NTG drip Osteoarthritis with pain syndrome Anxiety disorder. Depression-s/p loss of . Urinary incontinence. Osteoporosis. Kyphosis. Postmenopausal syndrome. Brain atrophy on CT. Left sphenoid sinusitis on CT. Left ventricular hypertrophy. Urinary incontinence. Cerebrovascular accident, with left facial drooling, left facial weakness, with slurred speech and dysphagia. Mild left upper extremity weakness. S/P forceful; diuresis. Medication noncompliance. Problems: Consultation Date/Type/Reason Admit Date/Time Jan 28, 2017 at 03:07 Initial Consult Date 01/28/17 Type of Consultation: [facility] Referring Provider: PEDRO KRUSE MD Exam/Review of Systems Vital Signs Vitals Vital Signs Date Time Temp Pulse Resp B/P Pulse Ox O2 Delivery O2 Flow Rate FiO2 01/29/17 08:46 100 16 96 Nasal Cannula 2.0 21 01/29/17 06:00 108/73 01/29/17 04:00 98.3 Intake and Output 01/28/17 01/28/17 01/29/17 15:00 23:00 07:00 Intake Total 501.0 ml 450 ml Output Total 1550 ml 1545 ml 610 ml Balance -1049.0 ml -1095 ml -610 ml Results Result Diagram: 01/28/17 0534 01/28/17 0534 Results 24 hrs Laboratory Tests Test 01/28/17 13:15 01/28/17 19:10 Creatine Kinase 28 Creatine Kinase Index 3.3 Creatinine Kinase MB (Mass) 0.92 Troponin I 0.037 0.028 Medications Medications Current Medications Acetaminophen (Tylenol Tab) 500 mg Q8 PRN PO pain and temp. more then 99F Last administered on 01/28/17t 12:55; Admin Dose 500 MG; Start 01/28/17 at 03:00 Aspirin (Aspirin) 81 mg DAILY PO Last administered on 01/29/17 09:12; Admin Dose 81 MG; Start 01/28/17 at 09:00 Ferrous Sulfate (Ferrous Sulfate (Ec)) 325 mg DAILY PO Last administered on 09:12; Admin Dose 325 MG; Start 01/28/17 at 09:00 Folic Acid (Folic Acid) 1 mg DAILY PO Last administered on 01/29/17 09:12; Admin Dose 1 MG; Start 01/28/17 at 09:00 Metoprolol Tartrate (Lopressor) 50 mg BID PO Last administered on 01/29/17 09: 13; Admin Dose 50 MG; Start 01/28/17 at 09:00 Losartan Potassium (Cozaar) 100 mg DAILY PO Last administered on 01/29/17 09: 13; Admin Dose 100 MG; Start 01/28/17 at 09:00 Furosemide (Lasix) 20 mg Q8 IV Last administered on 01/29/17 06:28; Admin Dose 20 MG; Start 01/28/17 at 06:00; Stop 01/29/17 at 19:00 Pantoprazole (Protonix Iv) 40 mg DAILY@06 IV Last administered on 01/29/17 06: 28; Admin Dose 40 MG; Start 01/28/17 at 06:00 Hydrochlorothiazide (Hydrochlorothiazide) 25 mg DAILY PO Last administered on 09:12; Admin Dose 25 MG; Start 01/28/17 at 09:00 Enoxaparin Sodium (Lovenox) 75 mg DAILY@06 SC Last administered on 01/29/17 06 :27; Admin Dose 75 MG; Start 01/29/17 at 06:00 KALPANA ANGELES MD Jan 29, 2017 09:24
[2017-01-29] MEDS ORDERED: FUROSEMIDE 20 MG TAB PO SCH (10:00)
--- NOTE | 2017-01-29 10:04 | PN ---
Date/Time of Note Date/Time of Note DATE: 01/29/17 TIME: 10:01 Assessment/Plan VTE Prophylaxis VTE Prophylaxis Intervention: ambulation, anti-embolic stocking Lines/Catheters IV Catheter Type (from Nrs): [place] line still needed: No Urinary Cath still in place: Yes Reason Cath still needed: urinary retention Assessment/Plan Assessment/Plan 1. Severe respiratory distress 2.Elevated D-dimer-r/o PE. 3. Hypertension, now hypotensive on NTG drip-will taper down. 4. Pleural effusion 5. History of Hodgkin lymphoma- s/p chemothereapy and hydration 3-4 days ago. 6. Osteoarthritis with pain syndrome 7. Anxiety disorder. 8. Depression-s/p loss of . 9. Urinary incontinence. 10. Osteoporosis. 11. Kyphosis. 12. Postmenopausal syndrome. 13. Anemia with nl iron. 14. Brain atrophy on CT. 15. Left sphenoid sinusitis on CT. 16. Left ventricular hypertrophy. 17. Urinary incontinence. 18.Cerebrovascular accident, with left facial drooling, left facial weakness, with slurred speech and dysphagia. Mild left upper extremity weakness. 19. S/P forceful; diuresis. 20.Medication noncompliance. Cont'd Hospitalization Reason: d/c today. Subjective 24 Hr Interval Summary Free Text/Dictation sob improved significantly. Still very depressed, attempting to refuse chemothrapy and go to "natural remedy" style treatment. Tearful, searching information why this disease happened to her when "she didn' t do anything wrong. Subjective hx not possible: other (improved.) Constitutional: improved, poor po, requiring O2, No chills, No diaphoresis, No disoriented, No febrile, No no complaints, No other, No requiring IVF Eyes: no complaints, No discharge, No other, No pain, No redness, No visual change Respiratory: cough, shortness of breath, No no complaints, No other, No pain, No pleuritic pain, No sputum, No wheezing Cardiovascular: lightheadedness, No chest pain, No edema, No no complaints, No orthopenea, No other, No palpitations, No paroxysmal nocturnal dyspnea Gastrointestinal: constipation, decreased appetite, passing stool, No blood, No diarrhea, No flatus, No nausea, No no complaints, No other, No pain, No vomiting Neurologic: dizziness Psychological: anxiety, depression, No confusion, No nl mood/affect, No no complaints, No other, No suicidal Exam/Review of Systems Vital Signs Vitals Vital Signs Date Time Temp Pulse Resp B/P Pulse Ox O2 Delivery O2 Flow Rate FiO2 01/29/17 09:00 108 14 105/57 96 Room Air 01/29/17 08:46 2.0 21 01/29/17 08:00 98.6 Intake and Output 01/28/17 01/28/17 01/29/17 15:00 23:00 07:00 Intake Total 501.0 ml 450 ml Output Total 1550 ml 1545 ml 610 ml Balance -1049.0 ml -1095 ml -610 ml Exam Constitutional: alert, frail, obese, oriented, well developed Psych: anxiety, depression, No confusion, No nl mood/affect, No no complaints, No other, No suicidal Head: atraumatic, No hematomas, No lacerations, No normocephalic, No other Eyes: EOMI, nl lids, No PERRL, No fundi, disc, No icteric, No nl conjunctiva, No nl sclera, No other ENMT: nl nasal mucosa & septum Neck: bruits, supple, No jvd, No masses, No non-tender, No nuchal rigidity, No other, No thyromegaly Respiratory: congested cough, diminished breath sounds, No clear to auscultation, No crackles/rales, No intercostal retraction, No labored breathing, No normal air movement, No other, No respirations, No tactile fremitus, No wheezing Cardiovascular: bruits, jugular venous distention (JVD), systolic murmur, No S3, No S4, No diastolic murmur, No edema, No gallop, No irregular rhythm, No murmurs/extra sounds, No nl pulses, No other, No regular rate and rhythm, No rub Gastrointestinal: bowel sounds, distended, nl liver, spleen, soft, No ascites, No firm, No hepatomegaly, No mass, No non-tender, No other, No rebound or guarding, No splenomegaly, No surgical scars, No tender Genitourinary - Female: No CMT, No CVA tenderness, No nl adnexae, No nl external genitalia, No other, No uterus Musculoskeletal: joint tenderness, muscle tone, muscle weakness, No nl extremities to inspection, No nl gait and stance, No other, No range of motion, No spine non-tender, No swelling Extremities: No calf tenderness, No clubbing, No cyanosis, No edema, No normal pulses, No other, No palpable cord, No pitting pedal edema, No tenderness 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: [employer]ETING [employer]ATOR II-XII intact, focal weakness (left, mild.), No DTR's symmetric, No confused, No lethargic, No nl mental status, No nl speech, No nl strength, No numbness, No other, No reflexes, No unresponsive Skin: No diaphoresis, No ecchymosis, No laceration, No nl turgor, No other, No puncture, No rash or lesions Lymph: No enlarged, No nl lymph nodes, No nontender, No other Results Result Diagram: 01/28/17 0534 01/28/17 0534 Results 24 hrs Laboratory Tests Test 01/28/17 13:15 01/28/17 19:10 Creatine Kinase 28 Creatine Kinase Index 3.3 Creatinine Kinase MB (Mass) 0.92 Troponin I 0.037 0.028 Medications Medications Current Medications Acetaminophen (Tylenol Tab) 500 mg Q8 PRN PO pain and temp. more then 99F Last administered on 01/28/17 12:55; Admin Dose 500 MG; Start 01/28/17 at 03:00 Aspirin (Aspirin) 81 mg DAILY PO Last administered on 01/29/17 09:12; Admin Dose 81 MG; Start 01/28/17 at 09:00 Ferrous Sulfate (Ferrous Sulfate (Ec)) 325 mg DAILY PO Last administered on 09:12; Admin Dose 325 MG; Start 01/28/17 at 09:00 Folic Acid (Folic Acid) 1 mg DAILY PO Last administered on 01/29/17 09:12; Admin Dose 1 MG; Start 01/28/17 at 09:00 Metoprolol Tartrate (Lopressor) 50 mg BID PO Last administered on 01/29/17 09: 13; Admin Dose 50 MG; Start 01/28/17 at 09:00 Losartan Potassium (Cozaar) 100 mg DAILY PO Last administered on 01/29/17 09: 13; Admin Dose 100 MG; Start 01/28/17 at 09:00 Furosemide (Lasix) 20 mg Q8 IV Last administered on 01/29/17 06:28; Admin Dose 20 MG; Start 01/28/17 at 06:00; Stop 01/29/17 at 19:00 Pantoprazole (Protonix Iv) 40 mg DAILY@06 IV Last administered on 01/29/17 06: 28; Admin Dose 40 MG; Start 01/28/17 at 06:00 Hydrochlorothiazide (Hydrochlorothiazide) 25 mg DAILY PO Last administered on 09:12; Admin Dose 25 MG; Start 01/28/17 at 09:00 Enoxaparin Sodium (Lovenox) 75 mg DAILY@06 SC Last administered on 01/29/17 06 :27; Admin Dose 75 MG; Start 01/29/17 at 06:00 PEDRO KRUSE MD Jan 29, 2017 10:04
[2017-01-29 11:45] LABS: ADD SCAN DIFF NO
[2017-01-29 11:47] LABS: BASOPHILS % 0.4 % (0.0-2.0); EOSINOPHILS % 0.7 % (0.0-7.0); HEMATOCRIT 34.3 % (37.0-47.0); HEMOGLOBIN 10.8 g/dl (12.0-16.0); LYMPHOCYTES % 21.9 % (15.0-51.0); MEAN CORPUSCULAR HGB CONC 31.5 g/dl (32.0-37.0); MEAN CORPUSCULAR VOLUME 82.7 fl (82.0-101.0); MEAN PLATELET VOLUME 12.4 fl (7.4-10.4); MONOCYTE # 0.1 10^3/ul (0.3-0.9); MONOCYTES % 2.9 % (0.0-11.0); NEUTROPHIL # 3.2 10^3/ul (1.6-7.5); NEUTROPHILS % 72.5 % (39.0-77.0); PLATELET COUNT 203 10^3/UL (140-415); RED BLOOD COUNT 4.15 10^6/ul (4.20-5.40); RED CELL DISTRIBUTION WIDTH 18.3 % (11.5-14.5); WHITE BLOOD COUNT 4.5 10^3/ul (4.8-10.8)
--- NOTE | 2017-01-29 12:14 | RADRPT ---
PROCEDURE: XR Chest. CLINICAL INDICATION: Congestive heart failure and 70-year-old female. TECHNIQUE: Single frontal view of the chest was obtained COMPARISON: Chest x-ray 01/28/2017 01:30 p.m. FINDINGS: The soft tissues are normal. There are degenerative osteophytes in the thoracic spine. The heart, cardiomediastinal silhouette, pulmonary vasculature and hilar structures are normal. Vascular calcif ications are noted in the aortic arch. The lungs are clear. The costophrenic angles are normal. IMPRESSION: 1. Resolution of the interstitial pulmonary edema and right pleural effusion previously identified o n 01/28/2017. 2. The heart is upper limits of normal for size. 3. Atherosclerosis of the aortic arch. RPTAT:AAJJ Physician Lucy Date Time Electronically viewed and signed by Gianfranco Casillas Physician on 01/29/2017 12:13 OBINNA/
[2017-01-29 13:39] LABS: ALBUMIN 4.2 g/dl (3.3-4.9)
[2017-01-29 13:40] LABS: POTASSIUM 3.4 mmol/L (3.5-5.1)
[2017-01-29 13:42] LABS: ALBUMIN/GLOBULIN RATIO 1.2; BILIRUBIN,INDIRECT 0.2 mg/dl (0-1.1); BILIRUBIN,TOTAL 0.2 mg/dl (0.2-1.3); CREATININE 0.6 mg/dl (0.44-1.00); TOTAL PROTEIN 7.7 g/dl (6.1-8.1)
[2017-01-29 13:43] LABS: CALCIUM 9.6 mg/dl (8.4-10.2)
[2017-01-29] MEDS ORDERED: Ipratropium 0.02% (Neb) HHN (13:46)
[2017-01-29] MEDS ORDERED: ALBU2.5V3 HHN (13:46)
[2017-01-29] MEDS ORDERED: LAS20 PO (13:46)
[2017-01-29] MEDS ORDERED: TYL500 PO (13:46)
== END 2017-01-29 14:39 | disposition home or self-care (01) ==
LOC: E/R 01:22 → ICU 03:07 → INTOOBSV 03:07
PROVIDERS: ADMIT Family Medicine; ATTEND Family Medicine
DX: J96.01 Acute respiratory failure with hypoxia (principal); I69.954 Hemiplegia and hemiparesis following unspecified cerebrovascular disease affecting left non-dominant side; G31.9 Degenerative disease of nervous system, unspecified; I51.7 Cardiomegaly; I10 Essential (primary) hypertension; J01.30 Acute sphenoidal sinusitis, unspecified; D50.9 Iron deficiency anemia, unspecified; F41.9 Anxiety disorder, unspecified; F32.9 Major depressive disorder, single episode, unspecified; R32 Unspecified urinary incontinence; R79.1 Abnormal coagulation profile; N95.9 Unspecified menopausal and perimenopausal disorder; M19.91 Primary osteoarthritis, unspecified site; M81.0 Age-related osteoporosis without current pathological fracture; M40.209 Unspecified kyphosis, site unspecified; Z88.1 Allergy status to other antibiotic agents; Z88.8 Allergy status to other drugs, medicaments and biological substances; Z85.71 Personal history of Hodgkin lymphoma; Z92.21 Personal history of antineoplastic chemotherapy
CPT/HCPCS: 36415; 36600; 71010; 80048; 80053; 80061; 82550; 82553; 82803; 83540; 83735; 83880; 84443; 84484; 85025; 85378; 85610; 85730; 87081; 93005; 93970; 94640; 94660; 94664; 96374; 96375; 99291; C9113; G0378; J1650; J1940; J3475

== ENCOUNTER 2017-02-26 22:39 | Emergency (ER) | payer MEDICARE, OTHER ==
[~2017-02-26] VITALS: Ht 167.6 cm; Wt 76.0 kg
[~2017-02-26 22:39] MED LIST changes: +ALBU2.5V3 HHN; +Ipratropium 0.02% (Neb) HHN; +LAS20 PO; +TYL500 PO
[2017-02-26 22:43] VITALS: Ht 167.6 cm; Wt 76.0 kg
[2017-02-27] MEDS ORDERED: ONDANSETRON (ODT) 4 MG TAB ODT STA (00:48)
[2017-02-27] MEDS ORDERED: morphine 10 MG INJ IM ONE (01:00)
[2017-02-27] MEDS ORDERED: HYDR-906 PO (01:00)
--- NOTE | 2017-02-27 01:15 | ERD ---
ER Documentation Chief Complaint Date/Time DATE: 02/27/17 TIME: 01:09 Chief Complaint right forearm pain since monday HPI 71-year-old female presents with emergency department for complaints of right forearm pain started 3 days ago, patient had chemotherapy, IV therapy on the right arm, pain afterwards. Patient being treated currently for lymphoma. Patient denies any fever or chills. Patient denies any trauma on affected area. Patient denies any numbness or tingling. Patient denies any fever or chills. Patient denies any redness or swelling. Patient took some naproxen and Tylenol for pain with mild relief. Patient denies any deformity. ROS All systems reviewed and are negative except as per history of present illness. Medications Home Meds Active Scripts Hydrocodone/Acetaminophen ([place] 5-325 Tablet) 1 Each Tablet, 1 TAB PO Q6H Y for SEVERE PAIN LEVEL 7-10, #20 TAB Prov:GOLDIE CHRISTOPHER NP 02/27/17 [Ipratropium 0.02% (Neb)] 0.5 MG/2.5 ML NEBU No Conflict Check, 0.5 MG HHN Q8H RESP THERAPY for 30 Days, #90 CAP.SR.12H Prov:PEDRO KRUSE MD 01/29/17 Furosemide (Lasix) 20 Mg Tab, 20 MG PO BID DIURETICS for 30 Days, #60 TAB Prov:PEDRO KRUSE MD 01/29/17 Albuterol Sulfate* (Albuterol Sulfate* Neb) 0.083%-3 Ml Neb, 2.5 MG HHN Q8H RESP THERAPY for 90 Days, #90 CAP 2 Refills Prov:PEDRO KRUSE MD 01/29/17 Acetaminophen* (Tylenol*) 500 Mg Tab, 500 MG PO Q8 Y for pain and temp. more then 99F for 30 Days, #90 TAB Prov:PEDRO KRUSE MD 01/29/17 Reported Medications Ferrous Sulfate* (Ferrous Sulfate*) 325 Mg Tabec, 325 MG PO DAILY, TAB 08/04/16 Metoprolol Tartrate* (Lopressor*) 50 Mg Tab, 50 MG PO BID, #60 TAB 08/04/16 Folic Acid* (Folic Acid*) 1 Mg Tablet, 1 MG PO DAILY, TAB 08/04/16 Ergocalciferol* (Drisdol* (Vitamin D2)) 50,000 Unit Capsule, 16695 UNIT PO Q7D, CAP 08/04/16 Losartan-Hydrochlorothiazide (Losartan-HCTZ) 100-25 Mg Tab, 1 TAB PO DAILY, TAB 08/04/16 Aspirin* (Aspirin* Chew) 81 Mg Tab.chew, 81 MG PO DAILY, TAB.CHEW 08/04/16 Allergies Allergies: Coded Allergies: vancomycin (Verified Allergy, Mild, REDNESS AND ITCHING, 08/04/16) Iodine and Iodide Containing Produc (Verified Allergy, Unknown, 01/28/17) PMhx/Soc History of Surgery: Yes (STENT X3) Anesthesia Reaction: No Hx 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 Disorder: No Hx Respiratory Disorders: No Hx Cardiac Disorders: Yes (HTN, [place], CARDIAC STENTS X3) Hx Psychiatric Problems: Yes (ANXIETY, DEPRESSION) Hx Miscellaneous Medical Probl: Yes (ANEMIA, LYMPHOMA) Hx Alcohol Use: No Hx Substance Use: No Hx Tobacco Use: No Smoking Status: Never smoker FmHx Family History: No coronary disease, No diabetes, No other Physical Exam Vitals Vital Signs Date Time Temp Pulse Resp B/P Pulse Ox O2 Delivery O2 Flow Rate FiO2 02/26/17 22:43 96.8 79 20 132/66 99 Physical Exam GENERAL: The patient is well developed and appropriate for usual state of health, in no apparent distress. CHEST: Clear to auscultation bilaterally. There are no rales, wheezes or rhonchi. HEART: Regular rate and rhythm. No murmurs, clicks, rubs or gallops. No S3 or S4. ABDOMEN: Soft, nontender and nondistended. Good bowel sounds. No rebound or guarding. No gross peritonitis. No gross organomegaly or masses. No Lennon sign or McBurney point tenderness. BACK: No midline or flank tenderness. EXTREMITIES: Able to move the joints of the right wrist right forearm right shoulder without any restriction and without any pain. Nontender on palpation, no swelling noted, no ecchymosis noted, no redness or induration noted. Right arm noted to be normal in appearance. Equal pulses bilaterally. Full range of motion of other joints of the body. Grossly neurovascularly intact. NEURO: Alert and oriented. Cranial nerves 2-12 intact. Motor strength in all 4 extremities with 5/5 strength. Sensation grossly intact. Normal speech and gait. SKIN: There is no apparent rash or petechia. The skin is warm and dry. HEMATOLOGIC AND LYMPHATIC: There is no evidence of excessive bruising or lymphedema. No gross cervical, axillary, or inguinal lymphadenopathy. Results 24 hrs Current Medications Medications (Trade) Dose Ordered Sig/Rafa Route PRN Reason Start Time Stop Time Status Last Admin Dose Admin Morphine Sulfate (morphine) 4 mg ONCE ONCE IM 02/27/17 01:00 02/27/17 01:01 DC Ondansetron HCl (Zofran Odt) 4 mg ONCE STAT ODT 02/27/17 00:48 02/27/17 00:49 DC Patient was given medication for pain here in emergency department, after treatment, patient verbalized feeling much better. Patient's pain is improved.Patient was given Zofran here in the emergency department. After treatment, patient was able to tolerate po fluids here in the emergency department without any vomiting. There is no signs and symptoms of dehydration. I discussed this case with my attending physician, Dr. Price, agrees with plan with treating patient's pain, given perfusion for pain medication to go home and about getting patient follow with primary care doctor and pain management within 1-2 days for further management of pain, at this time, and is intermittent cellulitis, no redness or swelling, no abnormal physical examination. No symptoms of sepsis. Patient does not have any fever. Procedures/MDM Medical decision making: Patient's right arm pain nonspecific at this time, most likely is from chemotherapy, can be also from cancer pain. No trauma and affected area, and symptoms of any neurovascular compromise. Low suspicion for any fractures, did not have any trauma and affected area. Radiology exams are indicated at this time. No symptoms of sepsis at this time, the symptoms of any septic arthritis. No symptoms of any phlebitis or acidosis. Patient was given rx [place] for pain, was advised to continue Zofran for nausea vomiting, is advised to follow-up with primary care doctor 1-2 days, possibly see painter foreman for further management of pain. Patient was advised to return to emergency department for redness, swelling, high fever, any other worsening symptoms. Departure Diagnosis: Primary Impression: Right arm pain Condition: Stable Patient Instructions: Managing Chronic Pain: Medications Additional Instructions: Patient was given rx [place] for pain, was advised to continue Zofran for nausea vomiting, is advised to follow-up with primary care doctor 1-2 days, possibly see painter foreman for further management of pain. Patient was advised to return to emergency department for redness, swelling, high fever, any other worsening symptoms. GOLDIE CHRISTOPHER NP Feb 27, 2017 01:15
[2017-02-27 02:12] VITALS: BP 114/60; PULSE 82; RESP 15
== END 2017-02-27 02:13 | disposition home or self-care (01) ==
LOC: FTE 22:39
DX: M79.631 Pain in right forearm (principal); I10 Essential (primary) hypertension; Z79.82 Long term (current) use of aspirin; Z85.72 Personal history of non-Hodgkin lymphomas
CPT/HCPCS: 96372; J2270

== ENCOUNTER 2017-06-10 23:14 | Inpatient (IN) | payer MEDICARE, OTHER ==
[~2017-06-10] VITALS: Ht 154.9 cm; Wt 76.7 kg
[~2017-06-10 23:14] MED LIST changes: +HYDR-906 PO
--- NOTE | 2017-06-10 23:39 | ERA ---
ER Documentation Chief Complaint Date/Time DATE: 06/10/17 TIME: 23:39 Chief Complaint cough/sob x 2 days HPI The patient is a 71-year-old female, presenting to the ER because of acute shortness of breath, cough for the last 2 days. She has similar symptoms previously. She was intubated about 2 months ago due to acute respiratory failure at [facility], had a stent placed 2 weeks ago at another hospital. She denies fever, chills, syncope, near syncope, neck pain, chest pain, chest pain with exertion of vomiting or diaphoresis. She denies abdominal pain, vomiting, dysuria, diarrhea. She does not smoke nor drink Past medical history: Anemia, hypertension, CAD, anxiety, depression, history of Hodgkin's lymphoma, osteoporosis, urinary incontinence, history of CHF Past surgical history: Stent PCI ROS All systems reviewed and are negative except as per history of present illness. Medications Home Meds Active Scripts Hydrocodone/Acetaminophen ([place] 5-325 Tablet) 1 Each Tablet, 1 TAB PO Q6H Y for SEVERE PAIN LEVEL 7-10, #20 TAB Prov:GOLDIE CHRISTOPHER NP 02/27/17 [Ipratropium 0.02% (Neb)] 0.5 MG/2.5 ML NEBU No Conflict Check, 0.5 MG HHN Q8H RESP THERAPY for 30 Days, #90 CAP.SR.12H Prov:PEDRO KRUSE MD 01/29/17 Furosemide (Lasix) 20 Mg Tab, 20 MG PO BID DIURETICS for 30 Days, #60 TAB Prov:PEDRO KRUSE MD 01/29/17 Albuterol Sulfate* (Albuterol Sulfate* Neb) 0.083%-3 Ml Neb, 2.5 MG HHN Q8H RESP THERAPY for 90 Days, #90 CAP 2 Refills Prov:PEDRO KRUSE MD 01/29/17 Acetaminophen* (Tylenol*) 500 Mg Tab, 500 MG PO Q8 Y for pain and temp. more then 99F for 30 Days, #90 TAB Prov:PEDRO KRUSE MD 01/29/17 Reported Medications Ferrous Sulfate* (Ferrous Sulfate*) 325 Mg Tabec, 325 MG PO DAILY, TAB 08/04/16 Metoprolol Tartrate* (Lopressor*) 50 Mg Tab, 50 MG PO BID, #60 TAB 08/04/16 Folic Acid* (Folic Acid*) 1 Mg Tablet, 1 MG PO DAILY, TAB 08/04/16 Ergocalciferol* (Drisdol* (Vitamin D2)) 50,000 Unit Capsule, 64322 UNIT PO Q7D, CAP 08/04/16 Losartan-Hydrochlorothiazide (Losartan-HCTZ) 100-25 Mg Tab, 1 TAB PO DAILY, TAB 08/04/16 Aspirin* (Aspirin* Chew) 81 Mg Tab.chew, 81 MG PO DAILY, TAB.CHEW 08/04/16 Allergies Allergies: Coded Allergies: vancomycin (Verified Allergy, Mild, REDNESS AND ITCHING, 08/04/16) Iodine and Iodide Containing Produc (Verified Allergy, Unknown, 01/28/17) PMhx/Soc History of Surgery: Yes (STENT X3) Anesthesia Reaction: No Hx 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 Disorder: No Hx Respiratory Disorders: No Hx Cardiac Disorders: Yes (HTN, [place], CARDIAC STENTS X3) Hx Psychiatric Problems: Yes (ANXIETY, DEPRESSION) Hx Miscellaneous Medical Probl: Yes (ANEMIA, LYMPHOMA) Hx Alcohol Use: No Hx Substance Use: No Hx Tobacco Use: No Physical Exam Vitals Vital Signs Date Time Temp Pulse Resp B/P Pulse Ox O2 Delivery O2 Flow Rate FiO2 06/11/17 02:19 86 20 120/88 100 Room Air 06/10/17 23:47 85 22 122/72 100 Room Air 06/10/17 23:24 97.9 90 20 125/81 97 Physical Exam Const: No acute distress. Head: Atraumatic. Eyes: Normal Conjunctiva. ENT: Normal External Ears, Nose and Mouth. Neck: Full range of motion. No meningismus. Resp: Bibasilar crackle Cardio: Regular rate and rhythm. Abd: Soft, non distended, normal bowel sounds, non tender. Skin: No petechiae or rashes. Back: No midline or flank tenderness. Ext: No cyanosis, or edema. Neur: Awake and alert. No focal deficit Psych: Normal Mood and Affect. Result Diagram: 06/11/17 0005 06/11/17 0005 Results 24 hrs Laboratory Tests Test 06/11/17 00:05 White Blood Count 5.710^3/ul Red Blood Count 3.5810^6/ul Hemoglobin 9.9g/dl Hematocrit 31.9% Mean Corpuscular Volume 89.1fl Mean Corpuscular Hemoglobin 27.7pg Mean Corpuscular Hemoglobin Concent 31.0g/dl Red Cell Distribution Width 16.6% Platelet Count 13502^3/UL Mean Platelet Volume 10.9fl Neutrophils % 64.3% Lymphocytes % 24.1% Monocytes % 8.4% Eosinophils % 2.6% Basophils % 0.3% Nucleated Red Blood Cells % 0.0/100WBC Neutrophils # 3.710^3/ul Lymphocytes # 1.410^3/ul Monocytes # 0.510^3/ul Eosinophils # 0.210^3/ul Basophils # 0.010^3/ul Nucleated Red Blood Cells # 0.010^3/ul Prothrombin Time 13.1Sec Prothrombin Time Ratio 1.0 INR International Normalized Ratio 0.99 Activated Partial Thromboplast Time 26.4Sec Sodium Level 141mmol/L Potassium Level 4.4mmol/L Chloride Level 102mmol/L Carbon Dioxide Level 27mmol/L Anion Gap 16 Blood Urea Nitrogen 14mg/dl Creatinine 0.64mg/dl Glucose Level 156mg/dl Calcium Level 9.5mg/dl Total Bilirubin 0.2mg/dl Direct Bilirubin 0.00mg/dl Indirect Bilirubin 0.2mg/dl Aspartate Amino Transf (AST/SGOT) 21IU/L Alanine Aminotransferase (ALT/SGPT) 24IU/L Alkaline Phosphatase 56IU/L Troponin I 0.034ng/ml B-Type Natriuretic Peptide 2060PG/ML Total Protein 7.4g/dl Albumin 4.3g/dl Globulin 3.10g/dl Albumin/Globulin Ratio 1.38 Current Medications Medications (Trade) Dose Ordered Sig/Rafa Route PRN Reason Start Time Stop Time Status Last Admin Dose Admin Furosemide (Lasix) 20 mg ONCE ONCE IV 06/11/17 01:30 06/11/17 01:31 DC 06/11/17 01:23 Procedures/[place] [id number] Radiology Main Line: [phone] DIAGNOSTIC IMAGING REPORT Patient: RAJEEV QUICK : 1945 Age: 71 Sex: F MR #: [id number] DOS: 06/10/17 5859 Ordering MD: SANDRA SHULTZ MD Location: E/R Room/Bed: PROCEDURE: Portable chest x-ray. CLINICAL INDICATION: Shortness of breath. TECHNIQUE: Portable AP view of the chest. COMPARISON: 01/29/2017. FINDINGS: There are increased perihilar interstitial lung markings. The cardiac silhouette is mildly enlarged. No pleural effusion is seen. There is no pneumothorax. IMPRESSION: 1. Increased perihilar interstitial lung markings, possibly representing interstitial edema or a viral chest infection. 2. Mildly enlarged cardiac silhouette. RPTAT: HTAR .Saleem Perez MD, MD Date Time Electronically viewed and signed by .Saleem Perez MD, MD on 06/11/2017 00:30 .R/ CC: SANDRA SHULTZ MD EKG: Read by emergency physician Rate/Rhythm: Normal Sinus Rhythm 83 beats/min QRS, ST, T-waves: No ST elevation, no T inversion, nonspecific T abnormality Impression: Abnormal EKG MEDICAL MAKING DECISION: The patient is a 71-year-old female, presenting with acute CHF exacerbation. She was treated with Lasix 20 mg IV with good response. The differential diagnoses considered include but are not limited to asthma, COPD, pneumonia, pulmonary embolus, pleural effusion, congestive heart failure. Departure Diagnosis: Primary Impression: Acute CHF Additional Impression: Anemia Condition: Stable Comments I discussed the findings with the patient. I was unable to contact her primary care physician Dr. Gaspar; therefore the patient will be admitted under the hospitalist. I discussed the patient with Dr. Coleman who was made aware of the lab, the treatment, the patient condition. The patient is admitted to Tel at 2: 10 AM SANDRA SHULTZ MD Jun 10, 2017 23:39
[2017-06-11] VITALS (10 sets, daily range): BP systolic 100–137; BP diastolic 56–73; PULSE 82–98; RESP 17–19; TEMP 98; Ht 154.9 cm; Wt 76.7 kg
[2017-06-11 00:15] LABS: BASOPHILS % 0.3 % (0.0-2.0); EOSINOPHILS # 0.2 10^3/ul (0.0-0.5); EOSINOPHILS % 2.6 % (0.0-7.0); HEMATOCRIT 31.9 % (37.0-47.0); HEMOGLOBIN 9.9 g/dl (12.0-16.0); LYMPHOCYTES # 1.4 10^3/ul (0.8-2.9); LYMPHOCYTES % 24.1 % (15.0-51.0); MEAN CORPUSCULAR HEMOGLOBIN 27.7 pg (29.0-33.0); MEAN CORPUSCULAR VOLUME 89.1 fl (82.0-101.0); MEAN PLATELET VOLUME 10.9 fl (7.4-10.4); MONOCYTE # 0.5 10^3/ul (0.3-0.9); MONOCYTES % 8.4 % (0.0-11.0); NEUTROPHIL # 3.7 10^3/ul (1.6-7.5); NEUTROPHILS % 64.3 % (39.0-77.0); PLATELET COUNT 184 10^3/UL (140-415); RED BLOOD COUNT 3.58 10^6/ul (4.20-5.40); RED CELL DISTRIBUTION WIDTH 16.6 % (11.5-14.5); WHITE BLOOD COUNT 5.7 10^3/ul (4.8-10.8)
[2017-06-11 00:30] LABS: INR 0.99; PARTIAL THROMBOPLASTIN TIME 26.4 Sec (25.0-35.0); PROTIME 13.1 Sec (12.2-14.2)
--- NOTE | 2017-06-11 00:30 | RADRPT ---
PROCEDURE: Portable chest x-ray. CLINICAL INDICATION: Shortness of breath. TECHNIQUE: Portable AP view of the chest. COMPARISON: 01/29/2017. FINDINGS: There are increased perihilar interstitial lung markings. The cardiac silhouette is mildly enlarged . No pleural effusion is seen. There is no pneumothorax. IMPRESSION: 1. Increased perihilar interstitial lung markings, possibly representing interstitial edema or a vi ral chest infection. 2. Mildly enlarged cardiac silhouette. RPTAT: HTAR .Saleem Perez MD, MD Date Time Electronically viewed and signed by .Saleem Perez MD, on 06/11/2017 00:30 .R/
[2017-06-11 00:35] LABS: ALBUMIN 4.3 g/dl (3.3-4.9); ALBUMIN/GLOBULIN RATIO 1.38; BILIRUBIN,INDIRECT 0.2 mg/dl (0-1.1); BILIRUBIN,TOTAL 0.2 mg/dl (0.2-1.3); CALCIUM 9.5 mg/dl (8.4-10.2); CREATININE 0.64 mg/dl (0.44-1.00); POTASSIUM 4.4 mmol/L (3.5-5.1); TOTAL PROTEIN 7.4 g/dl (6.1-8.1)
[2017-06-11 01:22] LABS: TROPONIN-I 0.034 ng/ml (0.00-0.12)
[2017-06-11] MEDS ORDERED: FUROSEMIDE 20 MG INJ IV ONE (01:30)
[2017-06-11] MEDS ORDERED: ACETAMINOPHEN 325 MG TAB PO PRN (05:00)
[2017-06-11] MEDS ORDERED: ONDANSETRON 4 MG INJ IV PRN (05:00)
[2017-06-11] MEDS ORDERED: ACETAMINOPHEN 500 MG TAB PO PRN (05:00)
[2017-06-11] MEDS ORDERED: DOCUSATE SODIUM 100 MG CAP PO PRN (05:00)
[2017-06-11] MEDS ORDERED: BISACODYL (EC) 5 MG TAB PO PRN (05:00)
[2017-06-11] MEDS: PANTOPRAZOLE 40 MG INJ IV SCH (06:06)
--- NOTE | 2017-06-11 07:20 | HP ---
Date/Time of Note Date/Time of Note DATE: 06/11/17 TIME: 07:19 Assessment/Plan VTE Prophylaxis VTE Prophylaxis Intervention: LMWH Lines/Catheters IV [facility] Saline Lock Assessment/Plan Chief Complaint/Hosp Course This is a 71 year female being admitted to the telemetry floor for: #1 shortness of breath: Acute CHF exacerbation versus respiratory etiology. Patient at the current time does not have any fevers. She did have a dry cough. There is some minimal crackles heard at the lung bases though she did receive Lasix prior to me examining her. She has some mild trace edema lower extremities. Her BNP was approximately 2000 however approximately 3 months ago was about 1900. However as she did have recent stent placement approximately 2 weeks ago I will try to assess heart function with an echocardiogram. Will trend troponins. We will reexamine the patient later today to assess whether she will be in need of any more Lasix, she does not appear to be significantly volume overloaded. We will also provide her with breathing treatments. She does have a history of lymphoma. This also could be viral in nature, there are no signs of any pneumonia on the x-ray and no signs of any fevers will continue to monitor. #2 difficulty swallowing: Patient reports a history of having difficulty swallowing and she feels like it is her lymphoma. Her diet has been poor lately. She does state that she can take down liquids easier than solids. At this time she is refusing any sort of imaging studies secondary to her fear for iodine as she is a now has an allergy to it though she may not need allergy related test. I will the current time consult GI for further evaluation and recommendation. And if they recommend any sort of imaging studies will follow through with that. #3 lymphoma: She is being followed by Dr. Lam. We will consult her if this becomes a hematologic case as well. #4 hypertension: Continue home medication #5 CAD: Continue beta-mary and aspirin #6 diabetes: We will check a hemoglobin A1c patient is currently not on any home medications for diabetes. #7 DVT and GI prophylaxis: Lovenox, Protonix Further treatment strategy will be implemented as per the clinical course Problems: HPI/ROS Admit Date/Time Admit Date/Time Jun 11, 2017 at 02:35 Hx of Present Illness Chief complaint: Shortness of breath The patient is a 71-year-old female, presenting to the ER because of acute shortness of breath, cough for the last 2 days. She has similar symptoms previously. She was intubated about 2 months ago due to acute respiratory failure at [facility], had a stent placed 2 weeks ago at another hospital. She denies fever, chills, syncope, near syncope, neck pain, chest pain, chest pain with exertion of vomiting or diaphoresis. She denies abdominal pain, vomiting, dysuria, diarrhea. She does not smoke nor drink Allergies: Iodine, vancomycin Medications: See MAR ROS Const: Negative for fever, chills, weight gain or weight loss, fatigue, or diaphoresis Eyes : No pain discharge or redness or change in visual acuity ENT: Patient does state that at times she notices it is difficult for her to swallow Respiratory: As per HPI Cardiovascular: As per HPI GI : no change in appetite, abdominal pain, nausea, vomiting, diarrhea, constipation, or change in the color his stool Genitourinary: No dysuria, hematuria, flank pain , discharge or CVA tenderness Musculoskeletal: No joint pain, back pain, neck pain, restricted range of motion in neck or joints Skin: No rash, bruising or hives Neuro: No headache, dizziness, syncope, seizure, focal weakness Endocrine: No polyuria, polydipsia, temperature intolerance Psych: No hallucination, depression, anxiety or suicidal ideation PMH/Family/Social Past Medical History Anemia, hypertension, CAD, anxiety, depression, history of Hodgkin's lymphoma, osteoporosis, urinary incontinence, history of CHF, DVT, diabetes, irritable bowel Past Surgical History Stent PCI 2 approximately 2 weeks ago Family History Significant Family History: no pertinent family hx Social History Alcohol Use: none Smoking Status: Never smoker Drug Use: none Exam/Review of Systems Vital Signs Vitals Vital Signs Date Time Temp Pulse Resp B/P Pulse Ox O2 Delivery O2 Flow Rate FiO2 06/11/17 05:23 82 06/11/17 04:35 98.0 19 120/97 99 Room Air Intake and Output 06/10/17 06/10/17 06/11/17 15:00 23:00 07:00 Output Total 500 ml Balance -500 ml Exam Exam General: Patient is a well-developed female lying in bed appears tired but alert and answering questions appropriately. HEENT: Atraumatic, normocephalic. The pupils are equal, round and reactive. Extraocular motor are intact Neck: Supple with full range of motion. No rigidity or meningismus Chest: Nontender Lungs: Mild crackles at the bases, no wheezing Heart: Normal S1-S2, Regular rhythm and rate. Systolic murmur Abdomen: Soft , nontender, nondistended , bowel sounds are present. No guarding no rebound tenderness , No masses or organomegaly. No costovertebral temporal angle mass Extremities: Normal to inspection, no edema no cyanosis Neurologic: Normal mental status, speech normal, cranial nerves II through XII are intact, motor and sensory are intact, no focal weakness Additional Comments PROCEDURE: Portable chest x-ray. CLINICAL INDICATION: Shortness of breath. TECHNIQUE: Portable AP view of the chest. COMPARISON: 01/29/2017. FINDINGS: There are increased perihilar interstitial lung markings. The cardiac silhouette is mildly enlarged. No pleural effusion is seen. There is no pneumothorax. IMPRESSION: 1. Increased perihilar interstitial lung markings, possibly representing interstitial edema or a viral chest infection. 2. Mildly enlarged cardiac silhouette. RPTAT: HTAR .Saleem Perez MD, MD Date Time Electronically viewed and signed by .Saleem Perez MD, MD on 06/11/2017 00:30 .R/ EKG: Rate/Rhythm: Normal Sinus Rhythm 83 beats/min QRS, ST, T-waves: No ST elevation, no T inversion, nonspecific T abnormality As per ED physician documentation Labs Result Diagram: 06/11/17 0005 06/11/17 0005 Medications Medications Current Medications Ondansetron HCl (Zofran Inj) 4 mg Q6H PRN IV NAUSEA AND/OR VOMITING; Start at 05:00 Acetaminophen (Tylenol Tab) 650 mg Q6H PRN PO PAIN LEVEL 1-3 OR FEVER; Start at 05:00 Docusate Sodium (Colace) 100 mg Q12H PRN PO CONSTIPATION; Start 06/11/17 at 05: 00 Bisacodyl (Dulcolax) 5 mg DAILY PRN PO CONSTIPATION; Start 06/11/17 at 05:00 Pantoprazole (Protonix Iv) 40 mg DAILY@06 IV Last administered on 06/11/17t 06: 06; Admin Dose 40 MG; Start 06/11/17 at 06:00 Enoxaparin Sodium (Lovenox) 40 mg DAILY SC ; Start 06/11/17 at 09:00 Acetaminophen (Tylenol Tab) 500 mg Q8 PRN PO pain and temp. more then 99F; Start 06/11/17 at 05:00 Aspirin (Aspirin) 81 mg DAILY PO ; Start 06/11/17 at 09:00 Ergocalciferol (Drisdol) 50,000 unit Q7D PO ; Start 06/11/17 at 05:00; Status UNV Ferrous Sulfate (Ferrous Sulfate (Ec)) 325 mg DAILY PO ; Start 06/11/17 at 09:00 Folic Acid (Folic Acid) 1 mg DAILY PO ; Start 06/11/17 at 09:00 Metoprolol Tartrate (Lopressor) 50 mg BID PO ; Start 06/11/17 at 09:00 Losartan Potassium (Cozaar) 100 mg DAILY PO ; Start 06/11/17 at 09:00 Hydrochlorothiazide (Hydrochlorothiazide) 25 mg DAILY PO ; Start 06/11/17 at 09: 00 RUSSELL KIRK Jun 11, 2017 07:20
[2017-06-11] MEDS: IPRATROPIUM (NEB) 0.5 MG/2.5 ML AMP INH SCH ×3 (07:34→23:41)
[2017-06-11] MEDS: ALBUTEROL 0.083% (NEB) 2.5 MG/3 ML AMP HHN SCH ×3 (07:34→23:41)
[2017-06-11] MEDS: ALBUTEROL/IPRATROPIUM (NEB) 3 ML AMP HHN SCH ×3 (08:00→20:00)
[2017-06-11] MEDS: ASPIRIN 81 MG TAB PO SCH (08:54)
[2017-06-11] MEDS: FOLIC ACID 1 MG TAB PO SCH (08:54)
[2017-06-11] MEDS: FERROUS SULFATE (EC) 325 MG TAB PO SCH (08:54)
[2017-06-11] MEDS: METOPROLOL 50 MG TAB PO SCH ×2 (08:55→20:14)
[2017-06-11] MEDS: HYDROCHLOROTHIAZIDE 25 MG TAB PO SCH (09:00)
[2017-06-11] MEDS: ENOXAPARIN 40 MG/0.4 ML SYG SC SCH (09:00)
[2017-06-11] MEDS: LOSARTAN 50 MG TAB PO SCH (09:00)
--- NOTE | 2017-06-11 14:30 | CONS ---
Date/Time of Note Date/Time of Note DATE: 06/11/17 TIME: 14:26 Assessment/Plan Assessment/Plan Additional Assessment/Plan Assessment: * New-onset dysphagia/rule out GERD/motility disorder/neoplasm/stricture * Hodgkin's lymphoma under treatment treatment has been held for the last 3 months, * Coronary artery disease/CHF/decompensated * Diabetes mellitus type 2 * Hypertension * History of DVT * History of irritable bowel syndrome * Chronic anemia/multifactorial Plan: * Speech pathology evaluation plus barium esophagogram * Continue cardiac management * Consider endoscopy pending review of above studies Consultation Date/Type/Reason Admit Date/Time Jun 11, 2017 at 02:35 Date of Consultation: Jun 11, 2017 Hx of Present Illness 71-year-old female under treatment for Hodgkin's lymphoma, presents to the hospital with increasing shortness of breath, she has documented coronary artery disease and CHF and has been decompensating multiple locations, her chemotherapy has been adjusted given her poor tolerance. On this occasion the patient also complains of shortness of breath she points to the sternal notch as the side where things get caught. She has had no previous evaluation for this symptom which is of relatively new onset probably 4 -6 weeks. Information is obtained via translation of her daughter. The patient has had some weight loss but this is not well documented or quantified. At the present time the patient is being evaluated from the cardiac point of view. I have explained to the patient and her daughter the options to evaluate dysphagia given that her symptoms are high and she is reluctant to undergo endoscopic examination I would recommend at this point speech pathology evaluation of the initiation of swallowing in an esophagogram. Further recommendations pending patient's clinical course as well as findings. Ultimately endoscopy may be still necessary and recommendable to address possibility of mucosal abnormalities that cannot be detected on imaging studies. The daughter understands. . Past Surgical History Stent PCI 2 approximately 2 weeks ago Family History Significant Family History: no pertinent family hx Constitutional: improved, no complaints Eyes: no complaints ENT: no complaints Respiratory: shortness of breath Cardiovascular: orthopenea, other (Exertional dyspnea) Gastrointestinal: decreased appetite, other (Dysphagia, anorexia), No constipation, No diarrhea, No nausea, No pain, No vomiting Genitourinary: no complaints Musculoskeletal: no complaints Skin: no complaints Neurologic: no complaints Endocrine: no complaints Lymphatic: no complaints Psychological: nl mood/affect, no complaints Immunologic: no complaints Past Medical History * Hodgkin's lymphoma under treatment treatment has been held for the last 3 months, * Coronary artery disease/CHF * Diabetes mellitus type 2 * Hypertension * History of DVT * History of irritable bowel syndrome * Chronic anemia/multifactorial Past Surgical History Past Surgical Hx: no surgical history Family History Significant Family History: no pertinent family hx Social History Alcohol Use: none Smoking Status: Never smoker Drug Use: none Exam/Review of Systems Vital Signs Vitals Vital Signs Date Time Temp Pulse Resp B/P Pulse Ox O2 Delivery O2 Flow Rate FiO2 06/11/17 12:36 83 06/11/17 12:16 98.2 19 100/56 96 06/11/17 07:34 21 06/11/17 04:35 Room Air Intake and Output 06/10/17 06/10/17 06/11/17 15:00 23:00 07:00 Output Total 500 ml Balance -500 ml Exam Constitutional: alert, obese, oriented, well developed Psych: nl mood/affect, no complaints Head: atraumatic, normocephalic Eyes: EOMI, PERRL, nl conjunctiva, nl lids, nl sclera ENMT: nl external ears & nose, nl lips & teeth, nl nasal mucosa & septum Neck: non-tender, supple Respiratory: clear to auscultation, normal air movement Cardiovascular: nl pulses, regular rate and rhythm Gastrointestinal: bowel sounds, distended, nl liver, spleen, soft, tender ( Mild epigastric tenderness), No ascites, No mass, No rebound or guarding Extremities: normal pulses Skin: nl turgor, No rash or lesions Lymph: nl lymph nodes Results Result Diagram: 06/11/17 0005 06/11/17 0005 Results 24 hrs Laboratory Tests Test 06/11/17 00:05 White Blood Count 5.7 # Red Blood Count 3.58 L Hemoglobin 9.9 L Hematocrit 31.9 L Mean Corpuscular Volume 89.1 Mean Corpuscular Hemoglobin 27.7 L Mean Corpuscular Hemoglobin Concent 31.0 L Red Cell Distribution Width 16.6 H Platelet Count 184 Mean Platelet Volume 10.9 H Neutrophils % 64.3 Lymphocytes % 24.1 Monocytes % 8.4 Eosinophils % 2.6 Basophils % 0.3 Nucleated Red Blood Cells % 0.0 Neutrophils # 3.7 Lymphocytes # 1.4 Monocytes # 0.5 Eosinophils # 0.2 Basophils # 0.0 Nucleated Red Blood Cells # 0.0 Prothrombin Time 13.1 Prothrombin Time Ratio 1.0 INR International Normalized Ratio 0.99 Activated Partial Thromboplast Time 26.4 Sodium Level 141 Potassium Level 4.4 Chloride Level 102 Carbon Dioxide Level 27 Anion Gap 16 Blood Urea Nitrogen 14 Creatinine 0.64 Glucose Level 156 Calcium Level 9.5 Total Bilirubin 0.2 Direct Bilirubin 0.00 Indirect Bilirubin 0.2 Aspartate Amino Transf (AST/SGOT) 21 Alanine Aminotransferase (ALT/SGPT) 24 Alkaline Phosphatase 56 Troponin I 0.034 B-Type Natriuretic Peptide 2060 H Total Protein 7.4 Albumin 4.3 Globulin 3.10 Albumin/Globulin Ratio 1.38 Medications Medications Current Medications Ondansetron HCl (Zofran Inj) 4 mg Q6H PRN IV NAUSEA AND/OR VOMITING; Start at 05:00 Acetaminophen (Tylenol Tab) 650 mg Q6H PRN PO PAIN LEVEL 1-3 OR FEVER; Start at 05:00 Docusate Sodium (Colace) 100 mg Q12H PRN PO CONSTIPATION; Start 06/11/17 at 05: 00 Bisacodyl (Dulcolax) 5 mg DAILY PRN PO CONSTIPATION; Start 06/11/17 at 05:00 Pantoprazole (Protonix Iv) 40 mg DAILY@06 IV Last administered on 06/11/17 06: 06; Admin Dose 40 MG; Start 06/11/17 at 06:00 Enoxaparin Sodium (Lovenox) 40 mg DAILY SC Last administered on 06/11/17 09:00 ; Admin Dose 40 MG; Start 06/11/17 at 09:00 Acetaminophen (Tylenol Tab) 500 mg Q8 PRN PO pain and temp. more then 99F; Start 06/11/17 at 05:00 Aspirin (Aspirin) 81 mg DAILY PO Last administered on 06/11/17 08:54; Admin Dose 81 MG; Start 06/11/17 at 09:00 Ergocalciferol (Drisdol) 50,000 unit Q7D@09 PO ; Start 06/13/17 at 09:00 Ferrous Sulfate (Ferrous Sulfate (Ec)) 325 mg DAILY PO Last administered on 08:54; Admin Dose 325 MG; Start 06/11/17 at 09:00 Folic Acid (Folic Acid) 1 mg DAILY PO Last administered on 06/11/17 08:54; Admin Dose 1 MG; Start 06/11/17 at 09:00 Metoprolol Tartrate (Lopressor) 50 mg BID PO Last administered on 06/11/17 08: 55; Admin Dose 50 MG; Start 06/11/17 at 09:00 Losartan Potassium (Cozaar) 100 mg DAILY PO ; Start 06/11/17 at 09:00 Hydrochlorothiazide (Hydrochlorothiazide) 25 mg DAILY PO ; Start 06/11/17 at 09: 00 SAMIR MERINO MD Jun 11, 2017 14:30
--- NOTE | 2017-06-11 16:06 | HP ---
Date/Time of Note Date/Time of Note DATE: 06/11/17 TIME: 15:46 Assessment/Plan VTE Prophylaxis VTE Prophylaxis Intervention: ambulation VTE Contraindication Reason: peripheral vascular disease Lines/Catheters IV Catheter Type (from Nrs): Saline Lock Central line still needed: No Urinary Cath still in place: No Reason Cath still needed: urinary retention Assessment/Plan Assessment/Plan 1. Severe respiratory distress with worsening of wheezing and inability to sleep. 2.IHD angina, HX of recent (2 weeks ago) PTCA with one sent and 3 balloon dilatation of narrow coronary arteries(; according to the daughter).Troponin0.034 3. Dysphagia to solids and sometimes to liquids. 4. Pulmonary edema by x-ray with wheezing on admission, improved after lasix. 5. History of Hodgkin lymphoma- s/p chemotherapy and hydration 3-4 days ago. 6. Osteoarthritis with pain syndrome 7. Anxiety disorder. 8. Depression with grief reaction-s/p loss of . 9. Urinary incontinence. 10. Osteoporosis. 11. Kyphosis. 12. Postmenopausal syndrome. 13. Anemia with nl iron. 14. Brain atrophy on CT. 15. Left sphenoid sinusitis on CT. 16. Left ventricular hypertrophy. 17. Urinary incontinence. 18.Cerebrovascular accident, with left facial drooling, left facial weakness, with slurred speech and dysphagia. Mild left upper extremity weakness.mostly corrected. 19. Hypertension, now normotensive.Cardiomegaly on cxr 20.Medication noncompliance. HPI/ROS Admit Date/Time Admit Date/Time Jun 11, 2017 at 02:35 Hx of Present Illness acute shortness of breath, cough for the last 2 days. She had similar symptoms previously. She was intubated about 2 months ago due to acute respiratory failure at [facility], had a cardiac study (angiography) with ballon dilatations and stent placed 2 weeks ago at another hospital. She denies fever , chills, syncope, near syncope.Positive for neck pain, chest pain, chest pain with exertion left more than right side with difficulty to inspire, vomiting or diaphoresis. She denies abdominal pain, vomiting, dysuria, diarrhea. She does not smoke nor drink. ROS Constitutional: diaphoresis, fatigue, nausea, No chills, No disoriented, No febrile, No improved, No no complaints, No other, No poor po, No weight change Eyes: no complaints ENT: congestion, dysphagia, no complaints Respiratory: shortness of breath Cardiovascular: orthopenea, other (Exertional dyspnea) Gastrointestinal: decreased appetite, other (Dysphagia, anorexia), No constipation, No diarrhea, No nausea, No pain, No vomiting Genitourinary: dysuria, no complaints, No bleeding, No discharge, No flank pain, No hematuria, No other Musculoskeletal: back pain, bone/joint pain, neck pain, no complaints, No other, No restricted range of motion, No swelling Skin: bruising, no complaints, pruritis, rash, No erythema, No laceration, No other, No skin lesions Neurologic: dizziness, headache, no complaints, No confusion, No focal-weakness, No other, No seizure, No syncope Endocrine: dry skin Lymphatic: no complaints, tender nodes Psychological: anxiety, depression, No confusion, No other, No suicidal Immunologic: no complaints PMH/Family/Social Past Medical History Medical History: angina, congestive heart failure, coronary artery disease, deep vein thrombosis, diabetes, GERD, hypertension, urinary tract infection Past Surgical History Past Surgical Hx: no surgical history, angioplasty Family History Significant Family History: asthma, heart disease, diabetes, hypertension, lung disease Social History Alcohol Use: none Smoking Status: Never smoker Drug Use: none Exam/Review of Systems Vital Signs Vitals Vital Signs Date Time Temp Pulse Resp B/P Pulse Ox O2 Delivery O2 Flow Rate FiO2 06/11/17 12:36 83 06/11/17 12:16 98.2 19 100/56 96 06/11/17 07:34 21 06/11/17 04:35 Room Air Intake and Output 06/10/17 06/10/17 06/11/17 15:00 23:00 07:00 Output Total 500 ml Balance -500 ml Exam Constitutional: alert, distress, frail, oriented, well developed, No non-verbal, No other Psych: anxiety, depression, No confusion, No nl mood/affect, No no complaints, No other, No suicidal Head: atraumatic, normocephalic Eyes: EOMI, PERRL, nl lids, No fundi, disc, No icteric, No nl conjunctiva, No nl sclera, No other ENMT: nl lips & teeth, No intubated, No mucosa pink and moist, No nl external ears & nose, No nl nasal mucosa & septum, No other, No tympanic membranes Neck: bruits, jvd, nuchal rigidity, thyromegaly, No masses, No non-tender, No other, No supple Respiratory: congested cough, labored breathing, wheezing, No clear to auscultation, No crackles/rales, No diminished breath sounds, No intercostal retraction, No normal air movement, No other, No respirations, No tactile fremitus Cardiovascular: bruits, jugular venous distention (JVD), systolic murmur, No S3, No S4, No diastolic murmur, No edema, No gallop, No irregular rhythm, No murmurs/extra sounds, No nl pulses, No other, No regular rate and rhythm, No rub Gastrointestinal: bowel sounds, distended, nl liver, spleen, soft, No ascites, No firm, No hepatomegaly, No mass, No non-tender, No other, No rebound or guarding, No splenomegaly, No surgical scars, No tender Genitourinary - Female: No CMT, No CVA tenderness, No nl adnexae, No nl external genitalia, No other, No uterus Musculoskeletal: joint tenderness, muscle tone, muscle weakness Extremities: calf tenderness, pitting pedal edema (mild.) 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, focal weakness, numbness Skin: diaphoresis, No ecchymosis, No laceration, No nl turgor, No other, No puncture, No rash or lesions Lymph: No enlarged, No nl lymph nodes, No nontender, No other Labs Result Diagram: 06/11/17 0005 06/11/17 0005 Medications Medications Current Medications Ondansetron HCl (Zofran Inj) 4 mg Q6H PRN IV NAUSEA AND/OR VOMITING; Start at 05:00 Acetaminophen (Tylenol Tab) 650 mg Q6H PRN PO PAIN LEVEL 1-3 OR FEVER; Start at 05:00 Docusate Sodium (Colace) 100 mg Q12H PRN PO CONSTIPATION; Start 06/11/17 at 05: 00 Bisacodyl (Dulcolax) 5 mg DAILY PRN PO CONSTIPATION; Start 06/11/17 at 05:00 Pantoprazole (Protonix Iv) 40 mg DAILY@06 IV Last administered on 06/11/17t 06: 06; Admin Dose 40 MG; Start 06/11/17 at 06:00 Enoxaparin Sodium (Lovenox) 40 mg DAILY SC Last administered on 06/11/17 09:00 ; Admin Dose 40 MG; Start 06/11/17 at 09:00 Acetaminophen (Tylenol Tab) 500 mg Q8 PRN PO pain and temp. more then 99F; Start 06/11/17 at 05:00 Aspirin (Aspirin) 81 mg DAILY PO Last administered on 06/11/17 08:54; Admin Dose 81 MG; Start 06/11/17 at 09:00 Ergocalciferol (Drisdol) 50,000 unit Q7D@09 PO ; Start 06/13/17 at 09:00 Ferrous Sulfate (Ferrous Sulfate (Ec)) 325 mg DAILY PO Last administered on 08:54; Admin Dose 325 MG; Start 06/11/17 at 09:00 Folic Acid (Folic Acid) 1 mg DAILY PO Last administered on 06/11/17 08:54; Admin Dose 1 MG; Start 06/11/17 at 09:00 Metoprolol Tartrate (Lopressor) 50 mg BID PO Last administered on 06/11/17 08: 55; Admin Dose 50 MG; Start 06/11/17 at 09:00 Losartan Potassium (Cozaar) 100 mg DAILY PO ; Start 06/11/17 at 09:00 Hydrochlorothiazide (Hydrochlorothiazide) 25 mg DAILY PO ; Start 06/11/17 at 09: 00 PEDRO KRUSE MD Jun 11, 2017 16:06
--- NOTE | 2017-06-11 18:00 | CONS ---
Date/Time of Note Date/Time of Note DATE: 06/11/17 TIME: 18:00 Assessment/Plan Assessment/Plan Chief Complaint/Hosp Course Hodgkin lymphoma- PROGRESSIVE s/p chemotherapy 1 MO AGO PLAN TO CHANGE CHEMO PROTOCOL SOON PT IS STABILIZED/DC Mild respiratory distress with improving of wheezing. Sleept well. IHD angina, HX of recent (2 weeks ago) PTCA with one sent and 3 balloon dilatation of narrow coronary arteries(; according to the daughter).Troponin0.034 Dysphagia to solids and sometimes to liquids. Pulmonary edema by x-ray with wheezing on admission, improved after lasix. Osteoarthritis with pain syndrome Anxiety disorder. Depression with grief reaction-s/p loss of . Urinary incontinence. Osteoporosis. Kyphosis. Postmenopausal syndrome. Anemia with nl iron. Brain atrophy on CT. Left sphenoid sinusitis on CT. Left ventricular hypertrophy. Urinary incontinence. Cerebrovascular accident, with left facial drooling, left facial weakness, with slurred speech and dysphagia. Mild left upper extremity weakness.mostly corrected. Hypertension, now normotensive.Cardiomegaly on cxr Cervico-brachial syndrome Medication noncompliance. Elevated D.Dimer- on lovenox. Problems: Consultation Date/Type/Reason Admit Date/Time Jun 11, 2017 at 02:35 Initial Consult Date 06/11/17 Reason for Consultation HD Referring Provider: PEDRO KRUSE MD 24 HR Interval Summary Free Text/Dictation ALL NOTED NO NEW EVENTS W-UP IN PROGRESS D/W Horace MERIDA RE CHEMO Exam/Review of Systems Vital Signs Vitals Vital Signs Date Time Temp Pulse Resp B/P Pulse Ox O2 Delivery O2 Flow Rate FiO2 06/11/17 16:20 86 18 96 21 06/11/17 16:10 98.3 104/56 06/11/17 04:35 Room Air Intake and Output 06/10/17 06/10/17 06/11/17 15:00 23:00 07:00 Output Total 500 ml Balance -500 ml Exam Constitutional: alert, distress, frail, oriented, well developed, No non-verbal, No other Psych: anxiety, depression, No confusion, No nl mood/affect, No no complaints, No other, No suicidal Head: atraumatic, normocephalic Eyes: EOMI, PERRL, nl lids, No fundi, disc, No icteric, No nl conjunctiva, No nl sclera, No other ENMT: nl lips & teeth, No intubated, No mucosa pink and moist, No nl external ears & nose, No nl nasal mucosa & septum, No other, No tympanic membranes Neck: bruits, jvd, nuchal rigidity, thyromegaly, No masses, No non-tender, No other, No supple Respiratory: congested cough, labored breathing, wheezing, No clear to auscultation, No crackles/rales, No diminished breath sounds, No intercostal retraction, No normal air movement, No other, No respirations, No tactile fremitus Cardiovascular: bruits, jugular venous distention (JVD), systolic murmur, No S3, No S4, No diastolic murmur, No edema, No gallop, No irregular rhythm, No murmurs/extra sounds, No nl pulses, No other, No regular rate and rhythm, No rub Gastrointestinal: bowel sounds, distended, nl liver, spleen, soft, No ascites, No firm, No hepatomegaly, No mass, No non-tender, No other, No rebound or guarding, No splenomegaly, No surgical scars, No tender Genitourinary - Female: No CMT, No CVA tenderness, No nl adnexae, No nl external genitalia, No other, No uterus Musculoskeletal: joint tenderness, muscle tone, muscle weakness Extremities: calf tenderness, pitting pedal edema (mild.) 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, focal weakness, numbness Skin: diaphoresis, No ecchymosis, No laceration, No nl turgor, No other, No puncture, No rash or lesions Lymph: No enlarged, No nl lymph nodes, No nontender, No other Results Result Diagram: 06/11/17 0005 06/11/17 0005 Results 24 hrs Laboratory Tests Test 06/11/17 00:05 White Blood Count 5.7 # Red Blood Count 3.58 L Hemoglobin 9.9 L Hematocrit 31.9 L Mean Corpuscular Volume 89.1 Mean Corpuscular Hemoglobin 27.7 L Mean Corpuscular Hemoglobin Concent 31.0 L Red Cell Distribution Width 16.6 H Platelet Count 184 Mean Platelet Volume 10.9 H Neutrophils % 64.3 Lymphocytes % 24.1 Monocytes % 8.4 Eosinophils % 2.6 Basophils % 0.3 Nucleated Red Blood Cells % 0.0 Neutrophils # 3.7 Lymphocytes # 1.4 Monocytes # 0.5 Eosinophils # 0.2 Basophils # 0.0 Nucleated Red Blood Cells # 0.0 Prothrombin Time 13.1 Prothrombin Time Ratio 1.0 INR International Normalized Ratio 0.99 Activated Partial Thromboplast Time 26.4 Sodium Level 141 Potassium Level 4.4 Chloride Level 102 Carbon Dioxide Level 27 Anion Gap 16 Blood Urea Nitrogen 14 Creatinine 0.64 Glucose Level 156 Calcium Level 9.5 Total Bilirubin 0.2 Direct Bilirubin 0.00 Indirect Bilirubin 0.2 Aspartate Amino Transf (AST/SGOT) 21 Alanine Aminotransferase (ALT/SGPT) 24 Alkaline Phosphatase 56 Troponin I 0.034 B-Type Natriuretic Peptide 2060 H Total Protein 7.4 Albumin 4.3 Globulin 3.10 Albumin/Globulin Ratio 1.38 Medications Medications Current Medications Ondansetron HCl (Zofran Inj) 4 mg Q6H PRN IV NAUSEA AND/OR VOMITING; Start at 05:00 Acetaminophen (Tylenol Tab) 650 mg Q6H PRN PO PAIN LEVEL 1-3 OR FEVER; Start at 05:00 Docusate Sodium (Colace) 100 mg Q12H PRN PO CONSTIPATION; Start 06/11/17 at 05: 00 Bisacodyl (Dulcolax) 5 mg DAILY PRN PO CONSTIPATION; Start 06/11/17 at 05:00 Pantoprazole (Protonix Iv) 40 mg DAILY@06 IV Last administered on 06/11/17 06: 06; Admin Dose 40 MG; Start 06/11/17 at 06:00 Enoxaparin Sodium (Lovenox) 40 mg DAILY SC Last administered on 06/11/17 09:00 ; Admin Dose 40 MG; Start 06/11/17 at 09:00 Acetaminophen (Tylenol Tab) 500 mg Q8 PRN PO pain and temp. more then 99F; Start 06/11/17 at 05:00 Aspirin (Aspirin) 81 mg DAILY PO Last administered on 06/11/17 08:54; Admin Dose 81 MG; Start 06/11/17 at 09:00 Ergocalciferol (Drisdol) 50,000 unit Q7D@09 PO ; Start 06/13/17 at 09:00 Ferrous Sulfate (Ferrous Sulfate (Ec)) 325 mg DAILY PO Last administered on 08:54; Admin Dose 325 MG; Start 06/11/17 at 09:00 Folic Acid (Folic Acid) 1 mg DAILY PO Last administered on 06/11/17 08:54; Admin Dose 1 MG; Start 06/11/17 at 09:00 Metoprolol Tartrate (Lopressor) 50 mg BID PO Last administered on 06/11/17 08: 55; Admin Dose 50 MG; Start 06/11/17 at 09:00 Losartan Potassium (Cozaar) 100 mg DAILY PO ; Start 06/11/17 at 09:00 Hydrochlorothiazide (Hydrochlorothiazide) 25 mg DAILY PO ; Start 06/11/17 at 09: 00 KALPANA ANGELES MD Jun 11, 2017 18:00
[2017-06-11] MEDS ORDERED: CLOP75TA27 PO (18:19)
[2017-06-11] MEDS ORDERED: CARV6.2579 PO (18:19)
[2017-06-11] MEDS ORDERED: LORA1TAB PO (18:19)
[2017-06-11] MEDS ORDERED: ATOR80TA75 PO (18:19)
[2017-06-11] MEDS ORDERED: PANT40TA4 PO (18:19)
[2017-06-11] MEDS ORDERED: ALDS PO (18:19)
--- NOTE | 2017-06-11 18:26 | RADRPT ---
Echocardiogram Report Patient Name: RAJEEV QUICK Gender: Female Date: 1945 Study Date: 11-Jun-2017 [id number] Tank Crewman: Alpesh [facility] Location: [id number] Ref. Physician: RUSSELL KIRK Quality: Adequate Procedures: Transthoracic echocardiogram with complete 2D, M-Mode, and doppler examination. Indications: CHF exacerbation. 2D/M Mode Doppler Measurement Value Normal Ranges Measurement Value Normal Ranges LVIDd 2D 5.8 3.5 - 5.6 cm AV Peak Nawaf 1.8 m/sec LVIDs 2D 5.2 2.1 - 4.1 cm AV Peak PG 13.0 mmHg FS 2D 11.3 % AI Peak PG 40.0 mmHg LVPWd 2D 0.9 0.6 - 1.1 cm AI Peak Nawaf 3.2 m/sec IVSd 2D 1.0 0.6 - 1.1 cm AI PHT 362.0 msec IVS/LVPW 2D 1.1 LVOT Peak Nawaf 0.9 m/sec AoR Diam 2D 2.4 2.0 - 3.7 cm LVOT Peak PG 3.0 mmHg LA/Ao 2D 2 0 - 1 MV E Peak Nawaf 0.7 m/sec EDV 2D 198.0 cm3 MV A Peak Nawaf 1.0 m/sec ESV 2D 138.0 cm3 MV E/A 0.7 LA Dimen 2D 4.0 2.3 - 4.0 cm MV Decel Time 130 msec MV E/A 0.7 MR Peak PG 98.0 mmHg MR Peak Nawaf 5.0 m/sec TR Peak Nawaf 2.8 m/sec TR Peak PG 32.0 mmHg RVSP 35.0 mmHg Findings Left Ventricle: Normal left ventricular cavity size. Normal left ventricular wall thickness. Severe global left ventricular systolic dysfunction. Ejection fraction is visually estimated at 25 %. Tissue Doppler/Mitral Doppler indices are consistent with impaired relaxation (Stage I diastolic dysfunction). Right Ventricle: Normal right ventricular size. Left Atrium: The left atrium is normal in size. Right Atrium: The right atrium is normal in size. Mitral Valve: Mitral valve leaflets appear mildly thickened. Mild mitral annular calcification. Mild to moderate mitral valve regurgitation. Aortic Valve: Aortic cusps appear mildly calcified. Mild aortic valve regurgitation. Tricuspid Valve: Normal appearance of the tricuspid valve. Estimated peak PA systolic pressure 35 mmHg. There is mild tricuspid regurgitation. Pulmonic Valve: Pulmonic valve not well visualized. There is trace pulmonic regurgitation. Pericardium: Trivial pericardial effusion. Aorta: Normal aortic root. IVC: Normal size and normal respiratory collapse consistent with normal right atrial pressure. Conclusions 1.Normal left ventricular cavity size. Normal left ventricular wall thickness. Severe global left ventricular systolic dysfunction. Ejection fraction is visually estimated at 25 %. Tissue Doppler/Mitral Doppler indices are consistent with impaired relaxation (Stage I diastolic dysfunction). 2.Normal appearance of the tricuspid valve. Estimated peak PA systolic pressure 35 mmHg. There is mild tricuspid regurgitation. 3.Aortic cusps appear mildly calcified. Mild aortic valve regurgitation. 4.Mitral valve leaflets appear mildly thickened. Mild mitral annular calcification. Mild to moderate mitral valve regurgitation. Electronically Signed By: Magnus Major 11-Jun-2017 18:25:44 -0700 Patient Name: RAJEEV QUICK Study Date: 11-Jun-2017 [id number]
[2017-06-11] MEDS: FUROSEMIDE 20 MG INJ IV SCH (18:27)
[2017-06-11] MEDS: CLOPIDOGREL 75 MG TAB PO SCH (18:27)
[2017-06-12] VITALS (11 sets, daily range): BP systolic 103–137; BP diastolic 59–75; PULSE 76–103; RESP 18–20
[2017-06-12] MEDS: PANTOPRAZOLE 40 MG INJ IV SCH (05:45)
[2017-06-12] MEDS: FUROSEMIDE 20 MG INJ IV SCH ×2 (05:46→17:13)
[2017-06-12 07:13] LABS: BASOPHILS % 0.4 % (0.0-2.0); EOSINOPHILS # 0.1 10^3/ul (0.0-0.5); EOSINOPHILS % 2.3 % (0.0-7.0); HEMATOCRIT 35.5 % (37.0-47.0); HEMOGLOBIN 10.8 g/dl (12.0-16.0); LYMPHOCYTES # 1.2 10^3/ul (0.8-2.9); LYMPHOCYTES % 24.1 % (15.0-51.0); MEAN CORPUSCULAR HEMOGLOBIN 27.5 pg (29.0-33.0); MEAN CORPUSCULAR HGB CONC 30.4 g/dl (32.0-37.0); MEAN CORPUSCULAR VOLUME 90.3 fl (82.0-101.0); MEAN PLATELET VOLUME 10.8 fl (7.4-10.4); MONOCYTE # 0.5 10^3/ul (0.3-0.9); MONOCYTES % 8.9 % (0.0-11.0); NEUTROPHIL # 3.3 10^3/ul (1.6-7.5); NEUTROPHILS % 64.1 % (39.0-77.0); PLATELET COUNT 190 10^3/UL (140-415); RED BLOOD COUNT 3.93 10^6/ul (4.20-5.40); RED CELL DISTRIBUTION WIDTH 16.9 % (11.5-14.5); WHITE BLOOD COUNT 5.1 10^3/ul (4.8-10.8)
[2017-06-12 07:37] LABS: ALBUMIN 4.5 g/dl (3.3-4.9); ALBUMIN/GLOBULIN RATIO 1.4; BILIRUBIN,INDIRECT 0.2 mg/dl (0-1.1); BILIRUBIN,TOTAL 0.2 mg/dl (0.2-1.3); CALCIUM 9.9 mg/dl (8.4-10.2); CREATININE 0.77 mg/dl (0.44-1.00); POTASSIUM 4.3 mmol/L (3.5-5.1); TOTAL PROTEIN 7.7 g/dl (6.1-8.1)
[2017-06-12 07:42] LABS: IRON 52 ug/dl (35-150)
[2017-06-12] MEDS: IPRATROPIUM (NEB) 0.5 MG/2.5 ML AMP INH SCH ×2 (07:44→16:00)
[2017-06-12] MEDS: ALBUTEROL 0.083% (NEB) 2.5 MG/3 ML AMP HHN SCH ×2 (07:44→16:00)
[2017-06-12 07:51] LABS: TOTAL IRON BINDING CAPACITY 315 ug/dl (241-421)
[2017-06-12 07:59] LABS: D-DIMER 2492.52 ng/ml (<460)
[2017-06-12 08:16] LABS: TROPONIN-I 0.042 ng/ml (0.00-0.12)
--- NOTE | 2017-06-12 09:09 | RADRPT ---
PROCEDURE: US bilateral lower extremity veins. CLINICAL INDICATION: Bilateral leg pain and swelling. TECHNIQUE: Multiple longitudinal and transverse images of the bilateral lower extremity veins were obtained with velazquez scale and color Doppler imaging. The common femoral vein, femoral vein, and popl iteal vein were evaluated. 2D grayscale measurements with compression sonography, color Doppler, and pulsed Doppler with augmentation. COMPARISON: No prior studies are available for comparison. FINDINGS: The bilateral common femoral, femoral and popliteal veins are normally compressible throughout. Col or flow demonstrates normal filling of the vessels. Normal waveforms are visualized and there is no rmal response to augmentation. IMPRESSION: 1. No evidence of deep vein thrombosis involving either lower extremity. RPTAT: QQ .Samson Cordova MD, MD Date Time Electronically viewed and signed by .Samson Cordova MD, on 06/12/2017 09:09 .R/
[2017-06-12] MEDS: LOSARTAN 50 MG TAB PO SCH (09:22)
[2017-06-12] MEDS: CLOPIDOGREL 75 MG TAB PO SCH (09:23)
[2017-06-12] MEDS: METOPROLOL 50 MG TAB PO SCH ×2 (09:23→21:00)
[2017-06-12] MEDS: ASPIRIN 81 MG TAB PO SCH (09:23)
[2017-06-12] MEDS: HYDROCHLOROTHIAZIDE 25 MG TAB PO SCH (09:23)
[2017-06-12] MEDS: FOLIC ACID 1 MG TAB PO SCH (09:23)
[2017-06-12] MEDS: FERROUS SULFATE (EC) 325 MG TAB PO SCH (09:23)
[2017-06-12] MEDS: ENOXAPARIN 40 MG/0.4 ML SYG SC SCH (09:25)
--- NOTE | 2017-06-12 09:45 | PN ---
Date/Time of Note Date/Time of Note DATE: 06/12/17 TIME: 09:38 Assessment/Plan VTE Prophylaxis VTE Prophylaxis Intervention: ambulation, anti-embolic stocking, LMWH Lines/Catheters IV [facility]ter [facility]from [facility]): [place] [employer] Central line still needed: No Urinary Cath still in place: No Assessment/Plan Assessment/Plan 1. Mild respiratory distress with improving of wheezing. Sleept well. 2.IHD angina, HX of recent (2 weeks ago) PTCA with one sent and 3 balloon dilatation of narrow coronary arteries(; according to the daughter).Troponin0.034 3. Dysphagia to solids and sometimes to liquids. 4. Pulmonary edema by x-ray with wheezing on admission, improved after lasix. 5. History of Hodgkin lymphoma- s/p chemotherapy and hydration 3-4 days ago. 6. Osteoarthritis with pain syndrome 7. Anxiety disorder. 8. Depression with grief reaction-s/p loss of . 9. Urinary incontinence. 10. Osteoporosis. 11. Kyphosis. 12. Postmenopausal syndrome. 13. Anemia with nl iron. 14. Brain atrophy on CT. 15. Left sphenoid sinusitis on CT. 16. Left ventricular hypertrophy. 17. Urinary incontinence. 18.Cerebrovascular accident, with left facial drooling, left facial weakness, with slurred speech and dysphagia. Mild left upper extremity weakness.mostly corrected. 19. 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 22.Elevated D.Dimer- on lovenox. Cont'd Hospitalization Reason: as above. Subjective 24 Hr Interval Summary Free Text/Dictation Neck and shoulder pain radiating to both shoulders. Subjective hx not possible: pt critical Constitutional: diaphoresis, poor po, requiring O2, No chills, No disoriented, No febrile, No improved, No no complaints, No other, No requiring IVF Eyes: No discharge, No no complaints, No other, No pain, No redness, No visual change ENT: No bleeding, No congestion, No discharge, No dysphagia, No no complaints, No other, No pain, No sore throat Respiratory: cough, pleuritic pain, shortness of breath Cardiovascular: chest pain, lightheadedness, orthopenea, palpitations, paroxysmal nocturnal dyspnea, No edema, No no complaints, No other Gastrointestinal: constipation, decreased appetite, nausea, pain, passing stool , No blood, No diarrhea, No flatus, No no complaints, No other, No vomiting Genitourinary: No bleeding, No discharge, No dysuria, No flank pain, No hematuria, No no complaints, No other Musculoskeletal: back pain, bone/joint pain, neck pain, restricted range of motion, No no complaints, No other, No swelling Skin: bruising, pruritis, rash Neurologic: dizziness, headache, No confusion, No focal-weakness, No no complaints, No other, No seizure, No syncope Lymphatic: other (lymphoma.) Psychological: anxiety, depression, No confusion, No nl mood/affect, No no complaints, No other, No suicidal Exam/Review of Systems Vital Signs Vitals Vital Signs Date Time Temp Pulse Resp B/P Pulse Ox O2 Delivery O2 Flow Rate FiO2 06/12/17 08:14 79 06/12/17 07:51 98.2 20 103/59 95 06/11/17 23:30 21 06/11/17 04:35 Room Air Exam Constitutional: alert, frail, obese, oriented, well developed, No distress, No non-verbal, No other Psych: anxiety, depression, No confusion, No nl mood/affect, No no complaints, No other, No suicidal Head: atraumatic, No hematomas, No lacerations, No normocephalic, No other Eyes: EOMI, PERRL, nl lids, nl sclera (pale.), No fundi, disc, No icteric, No nl conjunctiva, No other ENMT: nl external ears & nose, No intubated, No mucosa pink and moist, No nl lips & teeth, No nl nasal mucosa & septum, No other, No tympanic membranes Neck: bruits, jvd, nuchal rigidity, thyromegaly, No masses, No non-tender, No other, No supple Respiratory: congested cough, crackles/rales, diminished breath sounds, normal air movement, No clear to auscultation, No intercostal retraction, No labored breathing, No other, No respirations, No tactile fremitus, No wheezing Cardiovascular: bruits, edema, systolic murmur, No S3, No S4, No diastolic murmur, No gallop, No irregular rhythm, No jugular venous distention (JVD), No murmurs/extra sounds, No nl pulses, No other , No regular rate and rhythm, No rub Gastrointestinal: soft, No ascites, No bowel sounds, No distended, No firm, No hepatomegaly, No mass , No nl liver, spleen, No non-tender, No other, No rebound or guarding, No splenomegaly, No surgical scars, No tender Genitourinary - Female: nl adnexae, No CMT, No CVA tenderness, No nl external genitalia, No other, No uterus Musculoskeletal: joint tenderness, muscle tone, muscle weakness, nl gait and stance (unstable.), No nl extremities to inspection, No other, No range of motion, No spine non- tender, No swelling Extremities: calf tenderness, edema, pitting pedal edema, No clubbing, No cyanosis, No normal pulses, No other, No palpable cord, No tenderness 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: TANNING WHEEL FILLER II-XII intact (hearing impairment.), confused, lethargic, nl strength, numbness Skin: diaphoresis, No ecchymosis, No laceration, No nl turgor, No other, No puncture, No rash or lesions Results Result Diagram: 06/12/17 0649 06/12/17 0648 Results 24 hrs Laboratory Tests Test 06/12/17 06:48 06/12/17 06:49 D-Dimer 2492.52 #H D-Dimer Comment Sodium Level 148 H Potassium Level 4.3 Chloride Level 102 Carbon Dioxide Level 29 Anion Gap 21 H Blood Urea Nitrogen 22 H Creatinine 0.77 Glucose Level 138 Hemoglobin A1c 5.0 Calcium Level 9.9 Phosphorus Level 4.2 Magnesium Level 2.0 Iron Level 52 Total Iron Binding Capacity 315 Percent Iron Saturation 17 L Total Bilirubin 0.2 Direct Bilirubin 0.00 Indirect Bilirubin 0.2 Aspartate Amino Transf (AST/SGOT) 19 Alanine Aminotransferase (ALT/SGPT) 25 Alkaline Phosphatase 62 Troponin I 0.042 Total Protein 7.7 Albumin 4.5 Globulin 3.20 Albumin/Globulin Ratio 1.40 Thyroid Stimulating Hormone (TSH) Pending White Blood Count 5.1 Red Blood Count 3.93 L Hemoglobin 10.8 L Hematocrit 35.5 L Mean Corpuscular Volume 90.3 Mean Corpuscular Hemoglobin 27.5 L Mean Corpuscular Hemoglobin Concent 30.4 L Red Cell Distribution Width 16.9 H Platelet Count 190 Mean Platelet Volume 10.8 H Neutrophils % 64.1 Lymphocytes % 24.1 Monocytes % 8.9 Eosinophils % 2.3 Basophils % 0.4 Nucleated Red Blood Cells % 0.0 Neutrophils # 3.3 Lymphocytes # 1.2 Monocytes # 0.5 Eosinophils # 0.1 Basophils # 0.0 Nucleated Red Blood Cells # 0.0 Medications Medications Current Medications Ondansetron HCl (Zofran Inj) 4 mg Q6H PRN IV NAUSEA AND/OR VOMITING; Start at 05:00 Acetaminophen (Tylenol Tab) 650 mg Q6H PRN PO PAIN LEVEL 1-3 OR FEVER; Start at 05:00 Docusate Sodium (Colace) 100 mg Q12H PRN PO CONSTIPATION; Start 06/11/17 at 05: 00 Bisacodyl (Dulcolax) 5 mg DAILY PRN PO CONSTIPATION; Start 06/11/17 at 05:00 Pantoprazole (Protonix Iv) 40 mg DAILY@06 IV Last administered on 06/12/17 05: 45; Admin Dose 40 MG; Start 06/11/17 at 06:00 Enoxaparin Sodium (Lovenox) 40 mg DAILY SC Last administered on 06/12/17 09:25 ; Admin Dose 40 MG; Start 06/11/17 at 09:00 Acetaminophen (Tylenol Tab) 500 mg Q8 PRN PO pain and temp. more then 99F; Start 06/11/17 at 05:00 Aspirin (Aspirin) 81 mg DAILY PO Last administered on 06/12/17 09:23; Admin Dose 81 MG; Start 06/11/17 at 09:00 Ergocalciferol (Drisdol) 50,000 unit Q7D@09 PO ; Start 06/13/17 at 09:00 Ferrous Sulfate (Ferrous Sulfate (Ec)) 325 mg DAILY PO Last administered on 09:23; Admin Dose 325 MG; Start 06/11/17 at 09:00 Folic Acid (Folic Acid) 1 mg DAILY PO Last administered on 06/12/17 09:23; Admin Dose 1 MG; Start 06/11/17 at 09:00 Metoprolol Tartrate (Lopressor) 50 mg BID PO Last administered on 06/12/17 09: 23; Admin Dose 50 MG; Start 06/11/17 at 09:00 Losartan Potassium (Cozaar) 100 mg DAILY PO Last administered on 06/12/17 09: 22; Admin Dose 100 MG; Start 06/11/17 at 09:00 Hydrochlorothiazide (Hydrochlorothiazide) 25 mg DAILY PO Last administered on 09:23; Admin Dose 25 MG; Start 06/11/17 at 09:00 Clopidogrel Bisulfate (plaVIX) 75 mg DAILY PO Last administered on 06/12/17 09 :23; Admin Dose 75 MG; Start 06/11/17 at 18:08 PEDRO KRUSE MD Jun 12, 2017 09:45
[2017-06-12 09:51] LABS: THYROID STIMULATING HORMONE 2.99 MIU/L (0.465-4.680)
--- NOTE | 2017-06-12 12:51 | CONS ---
DATE OF ADMISSION: 06/11/2017 DATE OF CONSULTATION: 06/11/2017 REFERRING PHYSICIAN: Jaun Coleman MD REASON FOR EVALUATION: Shortness of breath. HISTORY OF PRESENT ILLNESS: The patient is a 73-year-old woman with prior history of coronary artery disease, history of stenting, history of CVA, history of anxiety and psychiatric disorder, status post recent stent placement at [facility] by Dr. Cruz. She comes to the hospital now for evaluation of shortness of breath. The patient was on heart failure on presentation. She is on diuresis and feels better. The patient did to rule in for acute myocardial infarction. She has had no nonspecific ST-T changes. For now, conservative therapy is expected. Will continue to document the fluid status as indicated. Continue gentle diuresis. Try to obtain records from [place] to see if further risk stratification is warranted. PAST MEDICAL HISTORY: 1. Hypertension. 2. History of coronary artery disease, post stenting two years ago. 3. History of Hodgkin's lymphoma. 4. History of psychiatric illness. 5. Prior history of CVA. ALLERGIES: THE PATIENT IS ALLERGIC TO VANCOMYCIN. SOCIAL HISTORY: The patient does not smoke or drink. Does not use drugs. FAMILY HISTORY: Negative for sudden cardiac or premature coronary artery disease. MEDICATION: 1. Drisdol 1500 units. 2. Lovenox. 3. Aspirin 81. 4. Iron sulfate. 5. Metoprolol two times a day 6. Losartan 150 mg once a day. 7. Hydrochlorothiazide. 8. Albuterol and Atrovent. 9. Pantoprazole. 10. Docusate. 11. Ondansetron. REVIEW OF SYSTEMS: No fevers, no chills. No shortness of breath. No . No chest pain. . GASTROINTESTINAL: No nausea or vomiting, no diarrhea, no constipation. GENITOURINARY: No dysuria, hematuria, . NEUROLOGICAL: . PSYCHIATRIC: There is a history of psychiatric illness. PHYSICAL EXAMINATION: VITAL SIGNS: Temperature 98.3, heart rate 86, blood pressure 104/56. GENERAL APPEARANCE: A well-nourished woman in no acute distress. Alert and oriented x3. . NECK: Supple. JVD 8-9 cm. No lymphadenopathy. No thyromegaly. HEART: Regular. Soft systolic murmur at the apex. PMI is minimally displaced. LUNGS: Coarse at the base. ABDOMEN: Soft. Bowel sounds present. There is no hepatosplenomegaly. . EXTREMITIES: No clubbing, cyanosis or edema. LABORATORY: White blood cell count 5.2, hemoglobin 8.9, platelets 184. INR 0.9. Sodium 141, potassium 4, creatinine 0.04. Troponin is negative at 0.34. ASSESSMENT AND PLAN:: 1. Coronary artery disease with recent stenting, possibly drug- eluting stenting. She has noted that she is on aspirin now. I do not appreciate Plavix on her medication list or any other dual- antiplatelet agent. It appears that the patient did not suffer an acute myocardial infarction. Will continue to monitor now. 2. Congestive heart failure. The patient has congestive heart failure, by history. Obtain 2D echo. Continue gentle diuresis. 3. Hypertension. Blood pressure well controlled. Continue medical therapy as needed. 4. Psychiatric illness. Continue to follow expectantly. 5. Anemia of chronic disease. H and H are stable. No signs of bleeding now. I would like to thank Dr. Coleman for referring this patient for my evaluation. Dictated By: Magnus Major MD /josie/derrick /Document#: [id number]
--- NOTE | 2017-06-12 13:47 | CONS ---
Date/Time of Note Date/Time of Note DATE: 06/12/17 TIME: 13:43 Assessment/Plan Assessment/Plan Additional Assessment/Plan Chest x-ray was reviewed from yesterday which is showing mild CHF. Assessment and recommendations; 1. Patient admitted with shortness of breath likely due to underlying cardiomyopathy with CHF. 2. Prior history of coronary artery disease, status post angioplasty in the past. 3. Currently no clinical evidence or suspicion of any infective process. 4. History of hypertension diabetes. Patient currently improved. Has been seen by the bowl topper. Awaiting 2D echocardiogram. Continue current treatment. Consultation Date/Type/Reason Admit Date/Time Jun 11, 2017 at 02:35 Date of Consultation: Jun 12, 2017 Type of Consultation: Pulmonary Hx of Present Illness Pulmonary consultation requested for evaluation of shortness of breath. Next History of presenting any; patient is a pleasant 71-year-old white lady who came into the emergency room yesterday with complaints of 2 day history of increasing shortness of breath mostly brought on by exertion. Patient denies any fever, chills, chest pain, wheezing. Upon evaluation a chest x-ray was done which has been interpreted as showing mild CHF. Chest x-ray also was personally reviewed by myself. Patient feeling somewhat better now and denies any further shortness of breath. According to her she was fine until a few days ago when the symptoms gradually started. Patient denies any history of body aches or myalgias. Past medical history; 1. Patient with a history of coronary artery disease, status post PTCA. 2. History of hypertension. 3. History of diabetes. Medications; reviewed. Allergies; iodine. Social history; never smoked, no history of any alcohol or drug abuse. Family history; patient is . His family members of diabetes hypertension in the family. 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 General exam; elderly woman, awake and alert, currently in no distress. Constitutional: diaphoresis, poor po, requiring O2, No chills, No disoriented, No febrile, No improved, No no complaints, No other, No requiring IVF Eyes: No discharge, No no complaints, No other, No pain, No redness, No visual change ENT: No bleeding, No congestion, No discharge, No dysphagia, No no complaints, No other, No pain, No sore throat Respiratory: cough, pleuritic pain, shortness of breath Cardiovascular: chest pain, lightheadedness, orthopenea, palpitations, paroxysmal nocturnal dyspnea, No edema, No no complaints, No other Gastrointestinal: constipation, decreased appetite, nausea, pain, passing stool , No blood, No diarrhea, No flatus, No no complaints, No other, No vomiting Genitourinary: No bleeding, No discharge, No dysuria, No flank pain, No hematuria, No no complaints, No other Musculoskeletal: back pain, bone/joint pain, neck pain, restricted range of motion, No no complaints, No other, No swelling Skin: bruising, pruritis, rash Neurologic: dizziness, headache, No confusion, No focal-weakness, No no complaints, No other, No seizure, No syncope Endocrine: no complaints Lymphatic: other (lymphoma.) Psychological: anxiety, depression, No confusion, No nl mood/affect, No no complaints, No other, No suicidal Immunologic: no complaints Past Medical History Medical History: angina, congestive heart failure, coronary artery disease, deep vein thrombosis, diabetes, GERD, hypertension, urinary tract infection Past Surgical History Past Surgical Hx: no surgical history, angioplasty Social History Alcohol Use: none Smoking Status: Never smoker Drug Use: none Exam/Review of Systems Vital Signs Vitals Vital Signs Date Time Temp Pulse Resp B/P Pulse Ox O2 Delivery O2 Flow Rate FiO2 06/12/17 12:12 94 06/12/17 11:48 98.3 20 119/69 97 06/11/17 23:30 21 06/11/17 04:35 Room Air Exam HEENT exam; supple neck, positive JVD. No lymphadenopathy. Midline trachea. No thyromegaly. Patient is edentulous and wears dentures. Pupils are equal and reactive to light bilaterally. Chest exam; clear to auscultation. S1-S2 audible, no murmurs. Regular rhythm. Abdomen exam; soft, no organomegaly. Bowel sounds audible. Extremity exam; no peripheral edema. No clubbing. Pulses 1+ bilaterally. 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 Results Result Diagram: 06/12/17 0649 06/12/17 0648 Results 24 hrs Laboratory Tests Test 06/12/17 06:48 06/12/17 06:49 D-Dimer 2492.52 #H D-Dimer Comment Sodium Level 148 H Potassium Level 4.3 Chloride Level 102 Carbon Dioxide Level 29 Anion Gap 21 H Blood Urea Nitrogen 22 H Creatinine 0.77 Glucose Level 138 Hemoglobin A1c 5.0 Calcium Level 9.9 Phosphorus Level 4.2 Magnesium Level 2.0 Iron Level 52 Total Iron Binding Capacity 315 Percent Iron Saturation 17 L Total Bilirubin 0.2 Direct Bilirubin 0.00 Indirect Bilirubin 0.2 Aspartate Amino Transf (AST/SGOT) 19 Alanine Aminotransferase (ALT/SGPT) 25 Alkaline Phosphatase 62 Troponin I 0.042 Total Protein 7.7 Albumin 4.5 Globulin 3.20 Albumin/Globulin Ratio 1.40 Thyroid Stimulating Hormone (TSH) 2.990 White Blood Count 5.1 Red Blood Count 3.93 L Hemoglobin 10.8 L Hematocrit 35.5 L Mean Corpuscular Volume 90.3 Mean Corpuscular Hemoglobin 27.5 L Mean Corpuscular Hemoglobin Concent 30.4 L Red Cell Distribution Width 16.9 H Platelet Count 190 Mean Platelet Volume 10.8 H Neutrophils % 64.1 Lymphocytes % 24.1 Monocytes % 8.9 Eosinophils % 2.3 Basophils % 0.4 Nucleated Red Blood Cells % 0.0 Neutrophils # 3.3 Lymphocytes # 1.2 Monocytes # 0.5 Eosinophils # 0.1 Basophils # 0.0 Nucleated Red Blood Cells # 0.0 Medications Medications Current Medications Ondansetron HCl (Zofran Inj) 4 mg Q6H PRN IV NAUSEA AND/OR VOMITING; Start at 05:00 Acetaminophen (Tylenol Tab) 650 mg Q6H PRN PO PAIN LEVEL 1-3 OR FEVER; Start at 05:00 Docusate Sodium (Colace) 100 mg Q12H PRN PO CONSTIPATION; Start 06/11/17 at 05: 00 Bisacodyl (Dulcolax) 5 mg DAILY PRN PO CONSTIPATION; Start 06/11/17 at 05:00 Pantoprazole (Protonix Iv) 40 mg DAILY@06 IV Last administered on 06/12/17 05: 45; Admin Dose 40 MG; Start 06/11/17 at 06:00 Enoxaparin Sodium (Lovenox) 40 mg DAILY SC Last administered on 06/12/17 09:25 ; Admin Dose 40 MG; Start 06/11/17 at 09:00 Acetaminophen (Tylenol Tab) 500 mg Q8 PRN PO pain and temp. more then 99F; Start 06/11/17 at 05:00 Aspirin (Aspirin) 81 mg DAILY PO Last administered on 06/12/17 09:23; Admin Dose 81 MG; Start 06/11/17 at 09:00 Ergocalciferol (Drisdol) 50,000 unit Q7D@09 PO ; Start 06/13/17 at 09:00 Ferrous Sulfate (Ferrous Sulfate (Ec)) 325 mg DAILY PO Last administered on 09:23; Admin Dose 325 MG; Start 06/11/17 at 09:00 Folic Acid (Folic Acid) 1 mg DAILY PO Last administered on 06/12/17 09:23; Admin Dose 1 MG; Start 06/11/17 at 09:00 Metoprolol Tartrate (Lopressor) 50 mg BID PO Last administered on 06/12/17 09: 23; Admin Dose 50 MG; Start 06/11/17 at 09:00 Losartan Potassium (Cozaar) 100 mg DAILY PO Last administered on 06/12/17 09: 22; Admin Dose 100 MG; Start 06/11/17 at 09:00 Hydrochlorothiazide (Hydrochlorothiazide) 25 mg DAILY PO Last administered on 09:23; Admin Dose 25 MG; Start 06/11/17 at 09:00 Clopidogrel Bisulfate (plaVIX) 75 mg DAILY PO Last administered on 06/12/17 09 :23; Admin Dose 75 MG; Start 06/11/17 at 18:08 JAZZMINE BILL Jun 12, 2017 13:47
--- NOTE | 2017-06-12 13:49 | CONS ---
Date/Time of Note Date/Time of Note DATE: 06/12/17 TIME: 13:45 Assessment/Plan Assessment/Plan Chief Complaint/Hosp Course IMP: 1.CHF-systolic EF 25% by echo read this admit down from 40% prior 2.H/O PTCA/stent 3.HTN 4.Anemia 5.Psych d/o REcc: -Tele -Continue lasix diuresis -Continue asa/plavix -Continue BB/losartan -Consider stress testing to eval for etiology of worsened EF -Continue hctz Problems: Consultation Date/Type/Reason Admit Date/Time Jun 11, 2017 at 02:35 Initial Consult Date 06/11/17 Type of Consultation: cardiology Reason for Consultation CHF Referring Provider: RUSSELL KIRK Exam/Review of Systems Vital Signs Vitals Vital Signs Date Time Temp Pulse Resp B/P Pulse Ox O2 Delivery O2 Flow Rate FiO2 06/12/17 12:12 94 06/12/17 11:48 98.3 20 119/69 97 06/11/17 23:30 21 06/11/17 04:35 Room Air Exam Review of Systems: CONSTITUTIONAL: No fevers, chills. PULMONARY: mild sob CARDIOVASCULAR: No chest pain/palpitations GASTROINTESTINAL: No nausea/vomiting. GENITOURINARY: No hematuria/dysuria. MUSCULOSKELETAL: No myagias/arthalgias. PSYCHIATRIC: The patient denies depression. NEUROLOGIC: No weakness Constitutional: alert Psych: no complaints Head: normocephalic ENMT: mucosa pink and moist Neck: jvd (9 cm water), supple Cardiovascular: regular rate and rhythm Gastrointestinal: non-tender, soft Musculoskeletal: muscle tone (normal) Extremities: edema (none) 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: other (NO focal deficits) Results Result Diagram: 06/12/17 0649 06/12/17 0648 Results 24 hrs Laboratory Tests Test 06/12/17 06:48 06/12/17 06:49 D-Dimer 2492.52 #H D-Dimer Comment Sodium Level 148 H Potassium Level 4.3 Chloride Level 102 Carbon Dioxide Level 29 Anion Gap 21 H Blood Urea Nitrogen 22 H Creatinine 0.77 Glucose Level 138 Hemoglobin A1c 5.0 Calcium Level 9.9 Phosphorus Level 4.2 Magnesium Level 2.0 Iron Level 52 Total Iron Binding Capacity 315 Percent Iron Saturation 17 L Total Bilirubin 0.2 Direct Bilirubin 0.00 Indirect Bilirubin 0.2 Aspartate Amino Transf (AST/SGOT) 19 Alanine Aminotransferase (ALT/SGPT) 25 Alkaline Phosphatase 62 Troponin I 0.042 Total Protein 7.7 Albumin 4.5 Globulin 3.20 Albumin/Globulin Ratio 1.40 Thyroid Stimulating Hormone (TSH) 2.990 White Blood Count 5.1 Red Blood Count 3.93 L Hemoglobin 10.8 L Hematocrit 35.5 L Mean Corpuscular Volume 90.3 Mean Corpuscular Hemoglobin 27.5 L Mean Corpuscular Hemoglobin Concent 30.4 L Red Cell Distribution Width 16.9 H Platelet Count 190 Mean Platelet Volume 10.8 H Neutrophils % 64.1 Lymphocytes % 24.1 Monocytes % 8.9 Eosinophils % 2.3 Basophils % 0.4 Nucleated Red Blood Cells % 0.0 Neutrophils # 3.3 Lymphocytes # 1.2 Monocytes # 0.5 Eosinophils # 0.1 Basophils # 0.0 Nucleated Red Blood Cells # 0.0 Medications Medications Current Medications Ondansetron HCl (Zofran Inj) 4 mg Q6H PRN IV NAUSEA AND/OR VOMITING; Start at 05:00 Acetaminophen (Tylenol Tab) 650 mg Q6H PRN PO PAIN LEVEL 1-3 OR FEVER; Start at 05:00 Docusate Sodium (Colace) 100 mg Q12H PRN PO CONSTIPATION; Start 06/11/17 at 05: 00 Bisacodyl (Dulcolax) 5 mg DAILY PRN PO CONSTIPATION; Start 06/11/17 at 05:00 Pantoprazole (Protonix Iv) 40 mg DAILY@06 IV Last administered on 06/12/17 05: 45; Admin Dose 40 MG; Start 06/11/17 at 06:00 Enoxaparin Sodium (Lovenox) 40 mg DAILY SC Last administered on 06/12/17 09:25 ; Admin Dose 40 MG; Start 06/11/17 at 09:00 Acetaminophen (Tylenol Tab) 500 mg Q8 PRN PO pain and temp. more then 99F; Start 06/11/17 at 05:00 Aspirin (Aspirin) 81 mg DAILY PO Last administered on 06/12/17 09:23; Admin Dose 81 MG; Start 06/11/17 at 09:00 Ergocalciferol (Drisdol) 50,000 unit Q7D@09 PO ; Start 06/13/17 at 09:00 Ferrous Sulfate (Ferrous Sulfate (Ec)) 325 mg DAILY PO Last administered on 09:23; Admin Dose 325 MG; Start 06/11/17 at 09:00 Folic Acid (Folic Acid) 1 mg DAILY PO Last administered on 06/12/17 09:23; Admin Dose 1 MG; Start 06/11/17 at 09:00 Metoprolol Tartrate (Lopressor) 50 mg BID PO Last administered on 06/12/17 09: 23; Admin Dose 50 MG; Start 06/11/17 at 09:00 Losartan Potassium (Cozaar) 100 mg DAILY PO Last administered on 06/12/17 09: 22; Admin Dose 100 MG; Start 06/11/17 at 09:00 Hydrochlorothiazide (Hydrochlorothiazide) 25 mg DAILY PO Last administered on 09:23; Admin Dose 25 MG; Start 06/11/17 at 09:00 Clopidogrel Bisulfate (plaVIX) 75 mg DAILY PO Last administered on 06/12/17 09 :23; Admin Dose 75 MG; Start 06/11/17 at 18:08 ARIEL HOBBS Jun 12, 2017 13:49
--- NOTE | 2017-06-12 17:37 | CONS ---
Date/Time of Note Date/Time of Note DATE: 06/12/17 TIME: 17:33 Assessment/Plan Assessment/Plan Chief Complaint/Hosp Course Hodgkin lymphoma- PROGRESSIVE s/p chemotherapy 1 MO AGO PLAN TO CHANGE CHEMO PROTOCOL SOON PT IS STABILIZED/DC Mild respiratory distress with improving of wheezing. Sleept well. IHD angina, HX of recent (2 weeks ago) PTCA with one sent and 3 balloon dilatation of narrow coronary arteries(; according to the daughter).Troponin0.034 Dysphagia to solids and sometimes to liquids. Pulmonary edema by x-ray with wheezing on admission, improved after lasix. Osteoarthritis with pain syndrome Anxiety disorder. Depression with grief reaction-s/p loss of . Urinary incontinence. Osteoporosis. Kyphosis. Postmenopausal syndrome. Anemia with nl iron. Brain atrophy on CT. Left sphenoid sinusitis on CT. Left ventricular hypertrophy. Urinary incontinence. Cerebrovascular accident, with left facial drooling, left facial weakness, with slurred speech and dysphagia. Mild left upper extremity weakness.mostly corrected. Hypertension, now normotensive.Cardiomegaly on cxr Cervico-brachial syndrome Medication noncompliance. Elevated D.Dimer- on lovenox. Problems: Consultation Date/Type/Reason Admit Date/Time Jun 11, 2017 at 02:35 Initial Consult Date 06/11/17 Type of Consultation: [facility] Referring Provider: RUSSELL KIRK 24 HR Interval Summary Free Text/Dictation ALL NOTED D/W PT AND FAMILY Exam/Review of Systems Vital Signs Vitals Vital Signs Date Time Temp Pulse Resp B/P Pulse Ox O2 Delivery O2 Flow Rate FiO2 06/12/17 16:12 93 06/12/17 15:24 98.5 20 110/59 96 06/11/17 23:30 21 06/11/17 04:35 Room Air Exam CONSTITUTIONAL: No fevers, chills. PULMONARY: mild sob CARDIOVASCULAR: No chest pain/palpitations GASTROINTESTINAL: No nausea/vomiting. GENITOURINARY: No hematuria/dysuria. MUSCULOSKELETAL: No myagias/arthalgias. PSYCHIATRIC: The patient denies depression. NEUROLOGIC: No weakness Constitutional: alert Psych: no complaints Head: normocephalic ENMT: mucosa pink and moist Neck: jvd (9 cm water), supple Cardiovascular: regular rate and rhythm Gastrointestinal: non-tender, soft Musculoskeletal: muscle tone (normal) Extremities: edema (none) 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: other (NO focal deficits) LN-SISI- CERVICAL AND SUPRACLAV Results Result Diagram: 06/12/17 0649 06/12/17 0648 Results 24 hrs Laboratory Tests Test 06/12/17 06:48 06/12/17 06:49 D-Dimer 2492.52 #H D-Dimer Comment Sodium Level 148 H Potassium Level 4.3 Chloride Level 102 Carbon Dioxide Level 29 Anion Gap 21 H Blood Urea Nitrogen 22 H Creatinine 0.77 Glucose Level 138 Hemoglobin A1c 5.0 Calcium Level 9.9 Phosphorus Level 4.2 Magnesium Level 2.0 Iron Level 52 Total Iron Binding Capacity 315 Percent Iron Saturation 17 L Total Bilirubin 0.2 Direct Bilirubin 0.00 Indirect Bilirubin 0.2 Aspartate Amino Transf (AST/SGOT) 19 Alanine Aminotransferase (ALT/SGPT) 25 Alkaline Phosphatase 62 Troponin I 0.042 Total Protein 7.7 Albumin 4.5 Globulin 3.20 Albumin/Globulin Ratio 1.40 Thyroid Stimulating Hormone (TSH) 2.990 White Blood Count 5.1 Red Blood Count 3.93 L Hemoglobin 10.8 L Hematocrit 35.5 L Mean Corpuscular Volume 90.3 Mean Corpuscular Hemoglobin 27.5 L Mean Corpuscular Hemoglobin Concent 30.4 L Red Cell Distribution Width 16.9 H Platelet Count 190 Mean Platelet Volume 10.8 H Neutrophils % 64.1 Lymphocytes % 24.1 Monocytes % 8.9 Eosinophils % 2.3 Basophils % 0.4 Nucleated Red Blood Cells % 0.0 Neutrophils # 3.3 Lymphocytes # 1.2 Monocytes # 0.5 Eosinophils # 0.1 Basophils # 0.0 Nucleated Red Blood Cells # 0.0 Medications Medications Current Medications Ondansetron HCl (Zofran Inj) 4 mg Q6H PRN IV NAUSEA AND/OR VOMITING; Start at 05:00 Acetaminophen (Tylenol Tab) 650 mg Q6H PRN PO PAIN LEVEL 1-3 OR FEVER; Start at 05:00 Docusate Sodium (Colace) 100 mg Q12H PRN PO CONSTIPATION; Start 06/11/17 at 05: 00 Bisacodyl (Dulcolax) 5 mg DAILY PRN PO CONSTIPATION; Start 06/11/17 at 05:00 Pantoprazole (Protonix Iv) 40 mg DAILY@06 IV Last administered on 06/12/17 05: 45; Admin Dose 40 MG; Start 06/11/17 at 06:00 Enoxaparin Sodium (Lovenox) 40 mg DAILY SC Last administered on 06/12/17 09:25 ; Admin Dose 40 MG; Start 06/11/17 at 09:00 Acetaminophen (Tylenol Tab) 500 mg Q8 PRN PO pain and temp. more then 99F; Start 06/11/17 at 05:00 Aspirin (Aspirin) 81 mg DAILY PO Last administered on 06/12/17 09:23; Admin Dose 81 MG; Start 06/11/17 at 09:00 Ergocalciferol (Drisdol) 50,000 unit Q7D@09 PO ; Start 06/13/17 at 09:00 Ferrous Sulfate (Ferrous Sulfate (Ec)) 325 mg DAILY PO Last administered on 09:23; Admin Dose 325 MG; Start 06/11/17 at 09:00 Folic Acid (Folic Acid) 1 mg DAILY PO Last administered on 06/12/17 09:23; Admin Dose 1 MG; Start 06/11/17 at 09:00 Metoprolol Tartrate (Lopressor) 50 mg BID PO Last administered on 06/12/17 09: 23; Admin Dose 50 MG; Start 06/11/17 at 09:00 Losartan Potassium (Cozaar) 100 mg DAILY PO Last administered on 06/12/17 09: 22; Admin Dose 100 MG; Start 06/11/17 at 09:00 Hydrochlorothiazide (Hydrochlorothiazide) 25 mg DAILY PO Last administered on 09:23; Admin Dose 25 MG; Start 06/11/17 at 09:00 Clopidogrel Bisulfate (plaVIX) 75 mg DAILY PO Last administered on 06/12/17 09 :23; Admin Dose 75 MG; Start 06/11/17 at 18:08 KALPANA ANGELES MD Jun 12, 2017 17:37
--- NOTE | 2017-06-12 17:40 | CONS ---
Date/Time of Note Date/Time of Note DATE: 06/12/17 TIME: 17:40 Assessment/Plan Assessment/Plan Chief Complaint/Hosp Course Hodgkin lymphoma- PROGRESSIVE s/p chemotherapy 1 MO AGO PLAN TO CHANGE CHEMO PROTOCOL SOON PT IS STABILIZED/DC Mild respiratory distress with improving of wheezing. Sleept well. IHD angina, HX of recent (2 weeks ago) PTCA with one sent and 3 balloon dilatation of narrow coronary arteries(; according to the daughter).Troponin0.034 Dysphagia to solids and sometimes to liquids. Pulmonary edema by x-ray with wheezing on admission, improved after lasix. Osteoarthritis with pain syndrome Anxiety disorder. Depression with grief reaction-s/p loss of . Urinary incontinence. Osteoporosis. Kyphosis. Postmenopausal syndrome. Anemia with nl iron. Brain atrophy on CT. Left sphenoid sinusitis on CT. Left ventricular hypertrophy. Urinary incontinence. Cerebrovascular accident, with left facial drooling, left facial weakness, with slurred speech and dysphagia. Mild left upper extremity weakness.mostly corrected. Hypertension, now normotensive.Cardiomegaly on cxr Cervico-brachial syndrome Medication noncompliance. Elevated D.Dimer- on lovenox. Problems: Consultation Date/Type/Reason Admit Date/Time Jun 11, 2017 at 02:35 Hx of Present Illness Hodgkin lymphoma- PROGRESSIVE s/p chemotherapy 1 MO AGO PLAN TO CHANGE CHEMO PROTOCOL SOON PT IS STABILIZED/DC Mild respiratory distress with improving of wheezing. Sleept well. IHD angina, HX of recent (2 weeks ago) PTCA with one sent and 3 balloon dilatation of narrow coronary arteries(; according to the daughter).Troponin0.034 Dysphagia to solids and sometimes to liquids. Pulmonary edema by x-ray with wheezing on admission, improved after lasix. Osteoarthritis with pain syndrome Anxiety disorder. Depression with grief reaction-s/p loss of . Urinary incontinence. Osteoporosis. Kyphosis. Postmenopausal syndrome. Anemia with nl iron. Brain atrophy on CT. Left sphenoid sinusitis on CT. Left ventricular hypertrophy. Urinary incontinence. Cerebrovascular accident, with left facial drooling, left facial weakness, with slurred speech and dysphagia. Mild left upper extremity weakness.mostly corrected. Hypertension, now normotensive.Cardiomegaly on cxr Cervico-brachial syndrome Medication noncompliance. Elevated D.Dimer- on lovenox. ALL NOTED Constitutional: diaphoresis, poor po, requiring O2, No chills, No disoriented, No febrile, No improved, No no complaints, No other, No requiring IVF Eyes: No discharge, No no complaints, No other, No pain, No redness, No visual change ENT: No bleeding, No congestion, No discharge, No dysphagia, No no complaints, No other, No pain, No sore throat Respiratory: cough, pleuritic pain, shortness of breath Cardiovascular: chest pain, lightheadedness, orthopenea, palpitations, paroxysmal nocturnal dyspnea, No edema, No no complaints, No other Gastrointestinal: constipation, decreased appetite, nausea, pain, passing stool , No blood, No diarrhea, No flatus, No no complaints, No other, No vomiting Genitourinary: No bleeding, No discharge, No dysuria, No flank pain, No hematuria, No no complaints, No other Musculoskeletal: back pain, bone/joint pain, neck pain, restricted range of motion, No no complaints, No other, No swelling Skin: bruising, pruritis, rash Neurologic: dizziness, headache, No confusion, No focal-weakness, No no complaints, No other, No seizure, No syncope Endocrine: no complaints Lymphatic: other (lymphoma.) Psychological: no complaints Immunologic: no complaints Past Medical History Medical History: angina, congestive heart failure, coronary artery disease, deep vein thrombosis, diabetes, GERD, hypertension, urinary tract infection Past Surgical History Past Surgical Hx: no surgical history, angioplasty Social History Alcohol Use: none Smoking Status: Never smoker Drug Use: none Exam/Review of Systems Vital Signs Vitals Vital Signs Date Time Temp Pulse Resp B/P Pulse Ox O2 Delivery O2 Flow Rate FiO2 06/12/17 16:12 93 06/12/17 15:24 98.5 20 110/59 96 06/11/17 23:30 21 06/11/17 04:35 Room Air Exam Constitutional: alert, distress, frail, oriented, well developed, No non-verbal, No other Psych: anxiety, depression, No confusion, No nl mood/affect, No no complaints, No other, No suicidal Head: atraumatic, normocephalic Eyes: EOMI, PERRL, nl lids, No fundi, disc, No icteric, No nl conjunctiva, No nl sclera, No other ENMT: nl lips & teeth, No intubated, No mucosa pink and moist, No nl external ears & nose, No nl nasal mucosa & septum, No other, No tympanic membranes Neck: bruits, jvd, nuchal rigidity, thyromegaly, No masses, No non-tender, No other, No supple Respiratory: congested cough, labored breathing, wheezing, No clear to auscultation, No crackles/rales, No diminished breath sounds, No intercostal retraction, No normal air movement, No other, No respirations, No tactile fremitus Cardiovascular: bruits, jugular venous distention (JVD), systolic murmur, No S3, No S4, No diastolic murmur, No edema, No gallop, No irregular rhythm, No murmurs/extra sounds, No nl pulses, No other, No regular rate and rhythm, No rub Gastrointestinal: bowel sounds, distended, nl liver, spleen, soft, No ascites, No firm, No hepatomegaly, No mass, No non-tender, No other, No rebound or guarding, No splenomegaly, No surgical scars, No tender Genitourinary - Female: No CMT, No CVA tenderness, No nl adnexae, No nl external genitalia, No other, No uterus Musculoskeletal: joint tenderness, muscle tone, muscle weakness Extremities: calf tenderness, pitting pedal edema (mild.) 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: POSTPARTUM RN II-XII intact, focal weakness, numbness Skin: diaphoresis, No ecchymosis, No laceration, No nl turgor, No other, No puncture, No rash or lesions Lymph: + CERVICAL AND SUPRACLAV lymph nodes, No nontender, No other Results Result Diagram: 06/12/17 0649 06/12/17 0648 Results 24 hrs Laboratory Tests Test 06/12/17 06:48 06/12/17 06:49 D-Dimer 2492.52 #H D-Dimer Comment Sodium Level 148 H Potassium Level 4.3 Chloride Level 102 Carbon Dioxide Level 29 Anion Gap 21 H Blood Urea Nitrogen 22 H Creatinine 0.77 Glucose Level 138 Hemoglobin A1c 5.0 Calcium Level 9.9 Phosphorus Level 4.2 Magnesium Level 2.0 Iron Level 52 Total Iron Binding Capacity 315 Percent Iron Saturation 17 L Total Bilirubin 0.2 Direct Bilirubin 0.00 Indirect Bilirubin 0.2 Aspartate Amino Transf (AST/SGOT) 19 Alanine Aminotransferase (ALT/SGPT) 25 Alkaline Phosphatase 62 Troponin I 0.042 Total Protein 7.7 Albumin 4.5 Globulin 3.20 Albumin/Globulin Ratio 1.40 Thyroid Stimulating Hormone (TSH) 2.990 White Blood Count 5.1 Red Blood Count 3.93 L Hemoglobin 10.8 L Hematocrit 35.5 L Mean Corpuscular Volume 90.3 Mean Corpuscular Hemoglobin 27.5 L Mean Corpuscular Hemoglobin Concent 30.4 L Red Cell Distribution Width 16.9 H Platelet Count 190 Mean Platelet Volume 10.8 H Neutrophils % 64.1 Lymphocytes % 24.1 Monocytes % 8.9 Eosinophils % 2.3 Basophils % 0.4 Nucleated Red Blood Cells % 0.0 Neutrophils # 3.3 Lymphocytes # 1.2 Monocytes # 0.5 Eosinophils # 0.1 Basophils # 0.0 Nucleated Red Blood Cells # 0.0 Medications Medications Current Medications Ondansetron HCl (Zofran Inj) 4 mg Q6H PRN IV NAUSEA AND/OR VOMITING; Start at 05:00 Acetaminophen (Tylenol Tab) 650 mg Q6H PRN PO PAIN LEVEL 1-3 OR FEVER; Start at 05:00 Docusate Sodium (Colace) 100 mg Q12H PRN PO CONSTIPATION; Start 06/11/17 at 05: 00 Bisacodyl (Dulcolax) 5 mg DAILY PRN PO CONSTIPATION; Start 06/11/17 at 05:00 Pantoprazole (Protonix Iv) 40 mg DAILY@06 IV Last administered on 06/12/17 05: 45; Admin Dose 40 MG; Start 06/11/17 at 06:00 Enoxaparin Sodium (Lovenox) 40 mg DAILY SC Last administered on 06/12/17 09:25 ; Admin Dose 40 MG; Start 06/11/17 at 09:00 Acetaminophen (Tylenol Tab) 500 mg Q8 PRN PO pain and temp. more then 99F; Start 06/11/17 at 05:00 Aspirin (Aspirin) 81 mg DAILY PO Last administered on 06/12/17 09:23; Admin Dose 81 MG; Start 06/11/17 at 09:00 Ergocalciferol (Drisdol) 50,000 unit Q7D@09 PO ; Start 06/13/17 at 09:00 Ferrous Sulfate (Ferrous Sulfate (Ec)) 325 mg DAILY PO Last administered on 09:23; Admin Dose 325 MG; Start 06/11/17 at 09:00 Folic Acid (Folic Acid) 1 mg DAILY PO Last administered on 06/12/17 09:23; Admin Dose 1 MG; Start 06/11/17 at 09:00 Metoprolol Tartrate (Lopressor) 50 mg BID PO Last administered on 06/12/17 09: 23; Admin Dose 50 MG; Start 06/11/17 at 09:00 Losartan Potassium (Cozaar) 100 mg DAILY PO Last administered on 06/12/17 09: 22; Admin Dose 100 MG; Start 06/11/17 at 09:00 Hydrochlorothiazide (Hydrochlorothiazide) 25 mg DAILY PO Last administered on 09:23; Admin Dose 25 MG; Start 06/11/17 at 09:00 Clopidogrel Bisulfate (plaVIX) 75 mg DAILY PO Last administered on 06/12/17 09 :23; Admin Dose 75 MG; Start 06/11/17 at 18:08 KALPANA ANGELES MD Jun 12, 2017 17:40
[2017-06-13] VITALS (12 sets, daily range): BP systolic 100–124; BP diastolic 52–74; PULSE 78–93; RESP 17–19
[2017-06-13] MEDS: FUROSEMIDE 20 MG INJ IV SCH ×2 (06:00→17:57)
[2017-06-13] MEDS: PANTOPRAZOLE 40 MG INJ IV SCH (06:00)
[2017-06-13] MEDS: ALBUTEROL 0.083% (NEB) 2.5 MG/3 ML AMP HHN SCH ×3 (07:53→17:32)
[2017-06-13] MEDS: IPRATROPIUM (NEB) 0.5 MG/2.5 ML AMP INH SCH ×3 (07:53→17:32)
--- NOTE | 2017-06-13 08:11 | CONS ---
Date/Time of Note Date/Time of Note DATE: 06/13/17 TIME: 08:09 Assessment/Plan Assessment/Plan Chief Complaint/Hosp Course Pulmonary consultation requested for evaluation of shortness of breath. Next History of presenting any; patient is a pleasant 71-year-old white lady who came into the emergency room yesterday with complaints of 2 day history of increasing shortness of breath mostly brought on by exertion. Patient denies any fever, chills, chest pain, wheezing. Upon evaluation a chest x-ray was done which has been interpreted as showing mild CHF. Chest x-ray also was personally reviewed by myself. Patient feeling somewhat better now and denies any further shortness of breath. According to her she was fine until a few days ago when the symptoms gradually started. Patient denies any history of body aches or myalgias. Past medical history; 1. Patient with a history of coronary artery disease, status post PTCA. 2. History of hypertension. 3. History of diabetes. Medications; reviewed. Allergies; iodine. Social history; never smoked, no history of any alcohol or drug abuse. Family history; patient is . His family members of diabetes hypertension in the family. 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 General exam; elderly woman, awake and alert, currently in no distress. Problems: Additional Assessment/Plan Assessment and recommendations; next 1. Patient admitted with CHF exacerbation with interval improvement. 2. Prior history of coronary artery disease with PTCA in the past. 3. History of hypertension. Continue current treatment. Awaiting 2D echocardiogram. Consultation Date/Type/Reason Admit Date/Time Jun 11, 2017 at 02:35 Initial Consult Date 06/12/17 Type of Consultation: Pulmonary Referring Provider: PEDRO KRUSE MD 24 HR Interval Summary Free Text/Dictation Patient condition stable. Denies any shortness of breath, chest pain. Currently sitting in a chair by bedside. Exam/Review of Systems Vital Signs Vitals Vital Signs Date Time Temp Pulse Resp B/P Pulse Ox O2 Delivery O2 Flow Rate FiO2 06/13/17 07:48 98.1 89 17 110/54 99 06/13/17 00:16 21 06/11/17 04:35 Room Air Intake and Output 06/12/17 06/12/17 06/13/17 15:00 23:00 07:00 Intake Total 1100 ml Balance 1100 ml Exam HEENT exam; supple neck, positive JVD. No lymphadenopathy. Midline trachea. No thyromegaly. Patient is edentulous and wears dentures. Chest exam; clear to auscultation. S1-S2 audible, no murmurs. Regular rhythm. Abdomen exam; soft, no organomegaly. Nontender. Bowel sounds audible. Extremity exam; no edema. [employer] exam; no focal deficit. Results Result Diagram: 06/12/1749 06/12/1748 Medications Medications Current Medications Ondansetron HCl (Zofran Inj) 4 mg Q6H PRN IV NAUSEA AND/OR VOMITING; Start at 05:00 Acetaminophen (Tylenol Tab) 650 mg Q6H PRN PO PAIN LEVEL 1-3 OR FEVER; Start at 05:00 Docusate Sodium (Colace) 100 mg Q12H PRN PO CONSTIPATION; Start 06/11/17 at 05: 00 Bisacodyl (Dulcolax) 5 mg DAILY PRN PO CONSTIPATION; Start 06/11/17 at 05:00 Pantoprazole (Protonix Iv) 40 mg DAILY@06 IV Last administered on 06/13/17 06: 00; Admin Dose 40 MG; Start 06/11/17 at 06:00 Enoxaparin Sodium (Lovenox) 40 mg DAILY SC Last administered on 06/12/17 09:25 ; Admin Dose 40 MG; Start 06/11/17 at 09:00 Acetaminophen (Tylenol Tab) 500 mg Q8 PRN PO pain and temp. more then 99F; Start 06/11/17 at 05:00 Aspirin (Aspirin) 81 mg DAILY PO Last administered on 06/12/17 09:23; Admin Dose 81 MG; Start 06/11/17 at 09:00 Ergocalciferol (Drisdol) 50,000 unit Q7D@09 PO ; Start 06/13/17 at 09:00 Ferrous Sulfate (Ferrous Sulfate (Ec)) 325 mg DAILY PO Last administered on 09:23; Admin Dose 325 MG; Start 06/11/17 at 09:00 Folic Acid (Folic Acid) 1 mg DAILY PO Last administered on 06/12/17 09:23; Admin Dose 1 MG; Start 06/11/17 at 09:00 Metoprolol Tartrate (Lopressor) 50 mg BID PO Last administered on 06/12/17 21: 00; Admin Dose 50 MG; Start 06/11/17 at 09:00 Losartan Potassium (Cozaar) 100 mg DAILY PO Last administered on 06/12/17 09: 22; Admin Dose 100 MG; Start 06/11/17 at 09:00 Hydrochlorothiazide (Hydrochlorothiazide) 25 mg DAILY PO Last administered on 09:23; Admin Dose 25 MG; Start 06/11/17 at 09:00 Clopidogrel Bisulfate (plaVIX) 75 mg DAILY PO Last administered on 06/12/17 09 :23; Admin Dose 75 MG; Start 06/11/17 at 18:08 JAZZMINE BILL Jun 13, 2017 08:11
[2017-06-13] MEDS ORDERED: ERGOCALCIFEROL 50,000 UNIT CAP PO SCH (09:00)
--- NOTE | 2017-06-13 09:01 | PN ---
Date/Time of Note Date/Time of Note DATE: 06/13/17 TIME: 08:54 Assessment/Plan VTE Prophylaxis VTE Prophylaxis Intervention: ambulation VTE Contraindication Reason: peripheral vascular disease Lines/Catheters IV Catheter Type (from Nrs): Saline Lock Central line still needed: No Urinary Cath still in place: No Reason Cath still needed: urinary retention Assessment/Plan Assessment/Plan 1. Mild respiratory distress with improving of wheezing. Sleept well. 2.IHD angina, HX of recent (2 weeks ago) PTCA with one sent and 3 balloon dilatation of narrow coronary arteries(; according to the daughter).LVEF down from 40 to 25; 3. Dysphagia to solids and sometimes to liquids-evaluation postponed. 4. Pulmonary edema by x-ray with wheezing on admission, improved after lasix. 5. History of Hodgkin lymphoma- s/p chemotherapy and hydration 3-4 days ago. 6. Osteoarthritis with pain syndrome 7. Anxiety disorder. 8. Depression with grief reaction-s/p loss of . 9. Urinary incontinence. 10. Osteoporosis. 11. Kyphosis. 12. Postmenopausal syndrome. 13. Anemia with nl iron. 14. Brain atrophy on CT. 15. Left sphenoid sinusitis on CT. 16. Left ventricular hypertrophy. 17. Urinary incontinence. 18.Cerebrovascular accident, with left facial drooling, left facial weakness, with slurred speech and dysphagia. Mild left upper extremity weakness.mostly corrected. 19. 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 22.Elevated D.Dimer- on lovenox. 23.Refusal of stress nuclear test. Subjective 24 Hr Interval Summary Free Text/Dictation I don't want a new stress test. I didn't tolerate it well last time. Discussed the necessity of determining a cause of decrease of LVEF from 40 to 25; Son understood. It is my impression that she didn't understood what is going on and why a new test. Constitutional: diaphoresis, febrile, improved, poor po, requiring O2, No chills, No disoriented, No no complaints, No other, No requiring IVF Eyes: No discharge, No no complaints, No other, No pain, No redness, No visual change ENT: dysphagia, No bleeding, No congestion, No discharge, No no complaints, No other, No pain , No sore throat Respiratory: shortness of breath, No cough, No no complaints, No other, No pain, No pleuritic pain, No sputum, No wheezing Cardiovascular: lightheadedness, orthopenea, No chest pain, No edema, No no complaints, No other, No palpitations, No paroxysmal nocturnal dyspnea Gastrointestinal: flatus, pain, passing stool Musculoskeletal: back pain, bone/joint pain, neck pain, No no complaints, No other, No restricted range of motion, No swelling Skin: bruising, No erythema, No laceration, No no complaints, No other, No pruritis, No rash , No skin lesions Psychological: anxiety, depression Exam/Review of Systems Vital Signs Vitals Vital Signs Date Time Temp Pulse Resp B/P Pulse Ox O2 Delivery O2 Flow Rate FiO2 06/13/17 08:19 87 06/13/17 07:48 98.1 17 110/54 99 06/13/17 00:16 21 06/11/17 04:35 Room Air Intake and Output 06/12/17 06/12/17 06/13/17 15:00 23:00 07:00 Intake Total 1100 ml Balance 1100 ml Exam Constitutional: alert, distress, frail, obese, oriented, well developed, No non-verbal, No other Psych: anxiety, No confusion, No depression, No nl mood/affect, No no complaints, No other, No suicidal Head: No atraumatic, No hematomas, No lacerations, No normocephalic, No other Eyes: EOMI, PERRL, nl lids, No fundi, disc, No icteric, No nl conjunctiva, No nl sclera, No other ENMT: No intubated, No mucosa pink and moist, No nl external ears & nose, No nl lips & teeth, No nl nasal mucosa & septum, No other, No tympanic membranes Neck: bruits, jvd, No masses, No non-tender, No nuchal rigidity, No other, No supple, No thyromegaly Respiratory: congested cough, diminished breath sounds, normal air movement, No clear to auscultation, No crackles/rales, No intercostal retraction, No labored breathing, No other, No respirations, No tactile fremitus, No wheezing Cardiovascular: bruits, jugular venous distention (JVD), systolic murmur, No S3, No S4, No diastolic murmur, No edema, No gallop, No irregular rhythm, No murmurs/extra sounds, No nl pulses, No other, No regular rate and rhythm, No rub Gastrointestinal: bowel sounds, nl liver, spleen, non-tender, soft, No ascites, No distended, No firm, No hepatomegaly, No mass, No other, No rebound or guarding, No splenomegaly, No surgical scars, No tender Genitourinary - Female: No CMT, No CVA tenderness, No nl adnexae, No nl external genitalia, No other, No uterus Musculoskeletal: joint tenderness, muscle tone, muscle weakness Extremities: normal pulses, No calf tenderness, No clubbing, No cyanosis, No edema, No other, No palpable cord, No pitting pedal edema, No tenderness 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, focal weakness, nl mental status, numbness, No DTR's symmetric, No confused, No lethargic, No nl speech, No nl strength, No other, No reflexes, No unresponsive Results Result Diagram: 06/12/1749 06/12/17 0648 Medications Medications Current Medications Ondansetron HCl (Zofran Inj) 4 mg Q6H PRN IV NAUSEA AND/OR VOMITING; Start at 05:00 Acetaminophen (Tylenol Tab) 650 mg Q6H PRN PO PAIN LEVEL 1-3 OR FEVER; Start at 05:00 Docusate Sodium (Colace) 100 mg Q12H PRN PO CONSTIPATION; Start 06/11/17 at 05: 00 Bisacodyl (Dulcolax) 5 mg DAILY PRN PO CONSTIPATION; Start 06/11/17 at 05:00 Pantoprazole (Protonix Iv) 40 mg DAILY@06 IV Last administered on 06/13/17 06: 00; Admin Dose 40 MG; Start 06/11/17 at 06:00 Enoxaparin Sodium (Lovenox) 40 mg DAILY SC Last administered on 06/12/17 09:25 ; Admin Dose 40 MG; Start 06/11/17 at 09:00 Acetaminophen (Tylenol Tab) 500 mg Q8 PRN PO pain and temp. more then 99F; Start 06/11/17 at 05:00 Aspirin (Aspirin) 81 mg DAILY PO Last administered on 06/12/17 09:23; Admin Dose 81 MG; Start 06/11/17 at 09:00 Ergocalciferol (Drisdol) 50,000 unit Q7D@09 PO ; Start 06/13/17 at 09:00 Ferrous Sulfate (Ferrous Sulfate (Ec)) 325 mg DAILY PO Last administered on 09:23; Admin Dose 325 MG; Start 06/11/17 at 09:00 Folic Acid (Folic Acid) 1 mg DAILY PO Last administered on 06/12/17 09:23; Admin Dose 1 MG; Start 06/11/17 at 09:00 Metoprolol Tartrate (Lopressor) 50 mg BID PO Last administered on 06/12/17 21: 00; Admin Dose 50 MG; Start 06/11/17 at 09:00 Losartan Potassium (Cozaar) 100 mg DAILY PO Last administered on 06/12/17 09: 22; Admin Dose 100 MG; Start 06/11/17 at 09:00 Hydrochlorothiazide (Hydrochlorothiazide) 25 mg DAILY PO Last administered on 09:23; Admin Dose 25 MG; Start 06/11/17 at 09:00 Clopidogrel Bisulfate (plaVIX) 75 mg DAILY PO Last administered on 06/12/17 09 :23; Admin Dose 75 MG; Start 06/11/17 at 18:08 PEDRO KRUSE MD Jun 13, 2017 09:00
[2017-06-13] MEDS: ENOXAPARIN 40 MG/0.4 ML SYG SC SCH (09:03)
[2017-06-13] MEDS: HYDROCHLOROTHIAZIDE 25 MG TAB PO SCH (11:45)
[2017-06-13] MEDS: CLOPIDOGREL 75 MG TAB PO SCH (11:45)
[2017-06-13] MEDS: FOLIC ACID 1 MG TAB PO SCH (11:45)
[2017-06-13] MEDS: ASPIRIN 81 MG TAB PO SCH (11:46)
[2017-06-13] MEDS: FERROUS SULFATE (EC) 325 MG TAB PO SCH (11:46)
[2017-06-13] MEDS: LOSARTAN 50 MG TAB PO SCH (11:46)
[2017-06-13] MEDS: METOPROLOL 50 MG TAB PO SCH ×2 (11:47→20:56)
--- NOTE | 2017-06-13 12:02 | CONS ---
Date/Time of Note Date/Time of Note DATE: 06/13/17 TIME: 12:00 Assessment/Plan Assessment/Plan Additional Assessment/Plan 1. Coronary artery disease with recent stenting, possibly drug- eluting stenting. She has noted that she is on aspirin now - added plavix. It appears that the patient did not suffer an acute myocardial infarction. Will continue to monitor now. REFUSED STRESS TEST TODAY. 2. Congestive heart failure. The patient has congestive heart failure, by history. Obtain 2D echo. Continue gentle diuresis. 3. Hypertension. Blood pressure well controlled. Continue medical therapy as needed. BETTER now. 4. Psychiatric illness. Continue to follow expectantly. 5. Anemia of chronic disease. H and H are stable. No signs of bleeding now. Consultation Date/Type/Reason Admit Date/Time Jun 11, 2017 at 02:35 Initial Consult Date 06/12/17 Type of Consultation: Pulmonary Referring Provider: PEDRO KRUSE MD 24 HR Interval Summary Free Text/Dictation No acute change - Pt refused stress test today. ROS: No fever, no chills, no nausea, no vomiting, no diarrhea/constipation No recent weight changes No chest pain, no PND, no orthopnea No dizziness, blurred vision No thirst, no heat or cold intolerance Exam/Review of Systems Vital Signs Vitals Vital Signs Date Time Temp Pulse Resp B/P Pulse Ox O2 Delivery O2 Flow Rate FiO2 06/13/17 11:47 97.9 109 18 124/74 97 06/13/17 00:16 21 06/11/17 04:35 Room Air Intake and Output 06/12/17 06/12/17 06/13/17 15:00 23:00 07:00 Intake Total 1100 ml Balance 1100 ml Exam General: WN/WD/NAD, AOx 2-3 HEENT: Unicetric/atraumatic/EOMI (follow commands) NECK: JVD elevated, no thyromegaly Lymph: no lymphadenopathy HEART: regular with no S3, II/ systolic murmur at apex LUNGS: Coarse sounds ABD: soft, NT, ND, +BS : Intact Neuro: non focal SKIN: chronic changes EXT: trace edema Results Result Diagram: 06/12/17 0649 06/12/17 0648 Medications Medications Current Medications Ondansetron HCl (Zofran Inj) 4 mg Q6H PRN IV NAUSEA AND/OR VOMITING; Start at 05:00 Acetaminophen (Tylenol Tab) 650 mg Q6H PRN PO PAIN LEVEL 1-3 OR FEVER; Start at 05:00 Docusate Sodium (Colace) 100 mg Q12H PRN PO CONSTIPATION; Start 06/11/17 at 05: 00 Bisacodyl (Dulcolax) 5 mg DAILY PRN PO CONSTIPATION; Start 06/11/17 at 05:00 Pantoprazole (Protonix Iv) 40 mg DAILY@06 IV Last administered on 06/13/17 06: 00; Admin Dose 40 MG; Start 06/11/17 at 06:00 Enoxaparin Sodium (Lovenox) 40 mg DAILY SC Last administered on 06/13/17 09:03 ; Admin Dose 40 MG; Start 06/11/17 at 09:00 Acetaminophen (Tylenol Tab) 500 mg Q8 PRN PO pain and temp. more then 99F; Start 06/11/17 at 05:00 Aspirin (Aspirin) 81 mg DAILY PO Last administered on 06/13/17 11:46; Admin Dose 81 MG; Start 06/11/17 at 09:00 Ergocalciferol (Drisdol) 50,000 unit Q7D@09 PO Last administered on 06/13/17 11 :46; Admin Dose 50,000 UNIT; Start 06/13/17 at 09:00 Ferrous Sulfate (Ferrous Sulfate (Ec)) 325 mg DAILY PO Last administered on 06/13 11:46; Admin Dose 325 MG; Start 06/11/17 at 09:00 Folic Acid (Folic Acid) 1 mg DAILY PO Last administered on 06/13/17 11:45; Admin Dose 1 MG; Start 06/11/17 at 09:00 Metoprolol Tartrate (Lopressor) 50 mg BID PO Last administered on 06/13/17 11: 47; Admin Dose 50 MG; Start 06/11/17 at 09:00 Losartan Potassium (Cozaar) 100 mg DAILY PO Last administered on 06/13/17 11:46 ; Admin Dose 100 MG; Start 06/11/17 at 09:00 Hydrochlorothiazide (Hydrochlorothiazide) 25 mg DAILY PO Last administered on 11:45; Admin Dose 25 MG; Start 06/11/17 at 09:00 Clopidogrel Bisulfate (plaVIX) 75 mg DAILY PO Last administered on 06/13/17t 11: 45; Admin Dose 75 MG; Start 06/11/17 at 18:08 BEULAH MONTGOMERY MD Jun 13, 2017 12:02
--- NOTE | 2017-06-13 15:50 | PN ---
Date/Time of Note Date/Time of Note DATE: 06/13/17 TIME: 15:47 Assessment/Plan VTE Prophylaxis VTE Prophylaxis Intervention: SCD's Lines/Catheters IV Catheter Type (from Nrs): Saline Lock Urinary Cath still in place: No Assessment/Plan Assessment/Plan ssessment: * New-onset dysphagia/rule out GERD/motility disorder/neoplasm/stricture * Hodgkin's lymphoma under treatment treatment has been held for the last 3 months, * Coronary artery disease/CHF/decompensated * Diabetes mellitus type 2 * Hypertension * History of DVT * History of irritable bowel syndrome * Chronic anemia/multifactorial Plan: * Speech pathology evaluation plus barium esophagogram * Continue cardiac management * Consider endoscopy pending review of above studies * case discussed with DR Sheldon * Further orders will depend on clinical course Subjective 24 Hr Interval Summary Free Text/Dictation * Course reviewed with RN * Patient sleeping * No untoward events overnight Exam/Review of Systems Vital Signs Vitals Vital Signs Date Time Temp Pulse Resp B/P Pulse Ox O2 Delivery O2 Flow Rate FiO2 06/13/17 15:41 98.4 86 18 100/55 96 06/13/17 00:16 21 06/11/17 04:35 Room Air Intake and Output 06/12/17 06/12/17 06/13/17 15:00 23:00 07:00 Intake Total 1100 ml Balance 1100 ml Exam Constitutional: alert, frail Neck: non-tender, supple Respiratory: clear to auscultation, normal air movement Cardiovascular: nl pulses, regular rate and rhythm Gastrointestinal: non-tender, soft Musculoskeletal: nl extremities to inspection, No nl gait and stance Extremities: normal pulses 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: nl speech, nl strength Skin: nl turgor, No rash or lesions Lymph: nl lymph nodes Results Result Diagram: 06/12/1749 06/12/17 0648 Medications Medications Current Medications Ondansetron HCl (Zofran Inj) 4 mg Q6H PRN IV NAUSEA AND/OR VOMITING; Start at 05:00 Acetaminophen (Tylenol Tab) 650 mg Q6H PRN PO PAIN LEVEL 1-3 OR FEVER; Start at 05:00 Docusate Sodium (Colace) 100 mg Q12H PRN PO CONSTIPATION; Start 06/11/17 at 05: 00 Bisacodyl (Dulcolax) 5 mg DAILY PRN PO CONSTIPATION; Start 06/11/17 at 05:00 Pantoprazole (Protonix Iv) 40 mg DAILY@06 IV Last administered on 06/13/17 06: 00; Admin Dose 40 MG; Start 06/11/17 at 06:00 Enoxaparin Sodium (Lovenox) 40 mg DAILY SC Last administered on 06/13/17 09:03 ; Admin Dose 40 MG; Start 06/11/17 at 09:00 Acetaminophen (Tylenol Tab) 500 mg Q8 PRN PO pain and temp. more then 99F; Start 06/11/17 at 05:00 Aspirin (Aspirin) 81 mg DAILY PO Last administered on 06/13/17 11:46; Admin Dose 81 MG; Start 06/11/17 at 09:00 Ergocalciferol (Drisdol) 50,000 unit Q7D@09 PO Last administered on 06/13/17 11 :46; Admin Dose 50,000 UNIT; Start 06/13/17 at 09:00 Ferrous Sulfate (Ferrous Sulfate (Ec)) 325 mg DAILY PO Last administered on 06/13 11:46; Admin Dose 325 MG; Start 06/11/17 at 09:00 Folic Acid (Folic Acid) 1 mg DAILY PO Last administered on 06/13/17 11:45; Admin Dose 1 MG; Start 06/11/17 at 09:00 Metoprolol Tartrate (Lopressor) 50 mg BID PO Last administered on 06/13/17 11: 47; Admin Dose 50 MG; Start 06/11/17 at 09:00 Losartan Potassium (Cozaar) 100 mg DAILY PO Last administered on 06/13/17 11:46 ; Admin Dose 100 MG; Start 06/11/17 at 09:00 Hydrochlorothiazide (Hydrochlorothiazide) 25 mg DAILY PO Last administered on 11:45; Admin Dose 25 MG; Start 06/11/17 at 09:00 Clopidogrel Bisulfate (plaVIX) 75 mg DAILY PO Last administered on 06/13/17 11: 45; Admin Dose 75 MG; Start 06/11/17 at 18:08 UMESH SOLIZ NP Jun 13, 2017 15:50
--- NOTE | 2017-06-13 21:05 | CONS ---
Date/Time of Note Date/Time of Note DATE: 06/13/17 TIME: 21:05 Assessment/Plan Assessment/Plan Chief Complaint/Hosp Course Hodgkin lymphoma- PROGRESSIVE s/p chemotherapy 1 MO AGO PLAN TO CHANGE CHEMO PROTOCOL SOON PT IS STABILIZED/DC Mild respiratory distress with improving of wheezing. Sleept well. IHD angina, HX of recent (2 weeks ago) PTCA with one sent and 3 balloon dilatation of narrow coronary arteries(; according to the daughter).Troponin0.034 Dysphagia to solids and sometimes to liquids. Pulmonary edema by x-ray with wheezing on admission, improved after lasix. Osteoarthritis with pain syndrome Anxiety disorder. Depression with grief reaction-s/p loss of . Urinary incontinence. Osteoporosis. Kyphosis. Postmenopausal syndrome. Anemia with nl iron. Brain atrophy on CT. Left sphenoid sinusitis on CT. Left ventricular hypertrophy. Urinary incontinence. Cerebrovascular accident, with left facial drooling, left facial weakness, with slurred speech and dysphagia. Mild left upper extremity weakness.mostly corrected. Hypertension, now normotensive.Cardiomegaly on cxr Cervico-brachial syndrome Medication noncompliance. Elevated D.Dimer- on lovenox. Problems: Consultation Date/Type/Reason Admit Date/Time Jun 11, 2017 at 02:35 Initial Consult Date 06/11/17 [facility]ation: [facility] Referring Provider: PEDRO KRUSE MD 24 HR Interval Summary Free Text/Dictation ALL NOTED Exam/Review of Systems Vital Signs Vitals Vital Signs Date Time Temp Pulse Resp B/P Pulse Ox O2 Delivery O2 Flow Rate FiO2 06/13/17 20:16 88 06/13/17 20:00 98.1 18 120/65 96 06/13/17 00:16 21 06/11/17 04:35 Room Air Intake and Output 06/12/17 06/12/17 06/13/17 15:00 23:00 07:00 Intake Total 1100 ml Balance 1100 ml Exam Constitutional: alert, distress, frail, oriented, well developed, No non-verbal, No other Psych: anxiety, depression, No confusion, No nl mood/affect, No no complaints, No other, No suicidal Head: atraumatic, normocephalic Eyes: EOMI, PERRL, nl lids, No fundi, disc, No icteric, No nl conjunctiva, No nl sclera, No other ENMT: nl lips & teeth, No intubated, No mucosa pink and moist, No nl external ears & nose, No nl nasal mucosa & septum, No other, No tympanic membranes Neck: bruits, jvd, nuchal rigidity, thyromegaly, No masses, No non-tender, No other, No supple Respiratory: congested cough, labored breathing, wheezing, No clear to auscultation, No crackles/rales, No diminished breath sounds, No intercostal retraction, No normal air movement, No other, No respirations, No tactile fremitus Cardiovascular: bruits, jugular venous distention (JVD), systolic murmur, No S3, No S4, No diastolic murmur, No edema, No gallop, No irregular rhythm, No murmurs/extra sounds, No nl pulses, No other, No regular rate and rhythm, No rub Gastrointestinal: bowel sounds, distended, nl liver, spleen, soft, No ascites, No firm, No hepatomegaly, No mass, No non-tender, No other, No rebound or guarding, No splenomegaly, No surgical scars, No tender Genitourinary - Female: No CMT, No CVA tenderness, No nl adnexae, No nl external genitalia, No other, No uterus Musculoskeletal: joint tenderness, muscle tone, muscle weakness Extremities: calf tenderness, pitting pedal edema (mild.) 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, focal weakness, numbness Skin: diaphoresis, No ecchymosis, No laceration, No nl turgor, No other, No puncture, No rash or lesions Lymph: + CERVICAL AND SUPRACLAV lymph nodes, No nontender, No other Results Result Diagram: 06/12/1749 06/12/1748 Medications Medications Current Medications Ondansetron HCl (Zofran Inj) 4 mg Q6H PRN IV NAUSEA AND/OR VOMITING; Start at 05:00 Acetaminophen (Tylenol Tab) 650 mg Q6H PRN PO PAIN LEVEL 1-3 OR FEVER; Start at 05:00 Docusate Sodium (Colace) 100 mg Q12H PRN PO CONSTIPATION; Start 06/11/17 at 05: 00 Bisacodyl (Dulcolax) 5 mg DAILY PRN PO CONSTIPATION; Start 06/11/17 at 05:00 Pantoprazole (Protonix Iv) 40 mg DAILY@06 IV Last administered on 06/13/17 06: 00; Admin Dose 40 MG; Start 06/11/17 at 06:00 Enoxaparin Sodium (Lovenox) 40 mg DAILY SC Last administered on 06/13/17 09:03 ; Admin Dose 40 MG; Start 06/11/17 at 09:00 Acetaminophen (Tylenol Tab) 500 mg Q8 PRN PO pain and temp. more then 99F; Start 06/11/17 at 05:00 Aspirin (Aspirin) 81 mg DAILY PO Last administered on 06/13/17 11:46; Admin Dose 81 MG; Start 06/11/17 at 09:00 Ergocalciferol (Drisdol) 50,000 unit Q7D@09 PO Last administered on 06/13/17 11 :46; Admin Dose 50,000 UNIT; Start 06/13/17 at 09:00 Ferrous Sulfate (Ferrous Sulfate (Ec)) 325 mg DAILY PO Last administered on 06/13 11:46; Admin Dose 325 MG; Start 06/11/17 at 09:00 Folic Acid (Folic Acid) 1 mg DAILY PO Last administered on 06/13/17 11:45; Admin Dose 1 MG; Start 06/11/17 at 09:00 Metoprolol Tartrate (Lopressor) 50 mg BID PO Last administered on 06/13/17 20: 56; Admin Dose 50 MG; Start 06/11/17 at 09:00 Losartan Potassium (Cozaar) 100 mg DAILY PO Last administered on 06/13/17 11:46 ; Admin Dose 100 MG; Start 06/11/17 at 09:00 Hydrochlorothiazide (Hydrochlorothiazide) 25 mg DAILY PO Last administered on 11:45; Admin Dose 25 MG; Start 06/11/17 at 09:00 Clopidogrel Bisulfate (plaVIX) 75 mg DAILY PO Last administered on 06/13/17 11: 45; Admin Dose 75 MG; Start 06/11/17 at 18:08 KALPANA ANGELES MD Jun 13, 2017 21:05
--- NOTE | 2017-06-13 21:22 | RADRPT ---
PROCEDURE: XR Cervical Spine. CLINICAL INDICATION: Neck pain. TECHNIQUE: Three views of the cervical spine were performed. Frontal, lateral, and AP open-mouth o dontoid. The images were reviewed on a PACS workstation. COMPARISON: None. FINDINGS: There is normal stature and alignment of the vertebrae. There is no fracture. There is no lytic or blastic lesion. There are degenerative changes at C6-7 with disk space narrowing and osteophytes. The prevertebral soft tissues are normal. IMPRESSION: 1. Degenerative changes at C6-7. 2. Otherwise unremarkable images of the cervical spine. RPTAT: QQ .Samson Cordova MD, MD Date Time Electronically viewed and signed by .Samson Cordova MD, on 06/13/2017 21:21 .R/
[2017-06-14] VITALS (13 sets, daily range): BP systolic 91–131; BP diastolic 48–62; PULSE 74–101; RESP 17–21
[2017-06-14] MEDS: PANTOPRAZOLE 40 MG INJ IV SCH (06:08)
[2017-06-14] MEDS: FUROSEMIDE 20 MG INJ IV SCH (06:09)
[2017-06-14] MEDS: ALBUTEROL 0.083% (NEB) 2.5 MG/3 ML AMP HHN SCH ×4 (08:00→23:03)
[2017-06-14] MEDS: IPRATROPIUM (NEB) 0.5 MG/2.5 ML AMP INH SCH ×4 (08:00→23:03)
[2017-06-14] MEDS: FOLIC ACID 1 MG TAB PO SCH (08:13)
[2017-06-14] MEDS: FERROUS SULFATE (EC) 325 MG TAB PO SCH (08:14)
[2017-06-14] MEDS: ASPIRIN 81 MG TAB PO SCH (08:15)
[2017-06-14] MEDS: CLOPIDOGREL 75 MG TAB PO SCH (08:15)
[2017-06-14] MEDS: ENOXAPARIN 40 MG/0.4 ML SYG SC SCH (08:17)
[2017-06-14] MEDS: HYDROCHLOROTHIAZIDE 25 MG TAB PO SCH (08:22)
[2017-06-14] MEDS: METOPROLOL 50 MG TAB PO SCH (08:24)
[2017-06-14] MEDS: LOSARTAN 50 MG TAB PO SCH (08:24)
--- NOTE | 2017-06-14 09:20 | CONS ---
Date/Time of Note Date/Time of Note DATE: 06/14/17 TIME: 09:19 Assessment/Plan Assessment/Plan Chief Complaint/Hosp Course Hodgkin lymphoma- PROGRESSIVE s/p chemotherapy 1 MO AGO PLAN TO CHANGE CHEMO PROTOCOL SOON PT IS STABILIZED/DC Mild respiratory distress with improving of wheezing. Sleept well. IHD angina, HX of recent (2 weeks ago) PTCA with one sent and 3 balloon dilatation of narrow coronary arteries(; according to the daughter).Troponin0.034 Dysphagia to solids and sometimes to liquids. Pulmonary edema by x-ray with wheezing on admission, improved after lasix. Osteoarthritis with pain syndrome Anxiety disorder. Depression with grief reaction-s/p loss of . Urinary incontinence. Osteoporosis. Kyphosis. Postmenopausal syndrome. Anemia with nl iron. Brain atrophy on CT. Left sphenoid sinusitis on CT. Left ventricular hypertrophy. Urinary incontinence. Cerebrovascular accident, with left facial drooling, left facial weakness, with slurred speech and dysphagia. Mild left upper extremity weakness.mostly corrected. Hypertension, now normotensive.Cardiomegaly on cxr Cervico-brachial syndrome Medication noncompliance. Elevated D.Dimer- on lovenox. Problems: Consultation Date/Type/Reason Admit Date/Time Jun 11, 2017 at 02:35 Initial Consult Date 06/11/17 [facility] Consult[facility]: [facility] Referring Provider: PEDRO KRUSE MD 24 HR Interval Summary Free Text/Dictation ALL NOTED Exam/Review of Systems Vital Signs Vitals Vital Signs Date Time Temp Pulse Resp B/P Pulse Ox O2 Delivery O2 Flow Rate FiO2 06/14/17 08:50 18 06/14/17 08:05 82 06/14/17 08:04 98.1 131/60 96 06/14/17 00:16 21 06/11/17 04:35 Room Air Intake and Output 06/13/17 06/13/17 06/14/17 15:00 23:00 07:00 Intake Total 1050 ml 500 ml Balance 1050 ml 500 ml Exam Constitutional: alert, distress, frail, oriented, well developed, No non-verbal, No other Psych: anxiety, depression, No confusion, No nl mood/affect, No no complaints, No other, No suicidal Head: atraumatic, normocephalic Eyes: EOMI, PERRL, nl lids, No fundi, disc, No icteric, No nl conjunctiva, No nl sclera, No other ENMT: nl lips & teeth, No intubated, No mucosa pink and moist, No nl external ears & nose, No nl nasal mucosa & septum, No other, No tympanic membranes Neck: bruits, jvd, nuchal rigidity, thyromegaly, No masses, No non-tender, No other, No supple Respiratory: congested cough, labored breathing, wheezing, No clear to auscultation, No crackles/rales, No diminished breath sounds, No intercostal retraction, No normal air movement, No other, No respirations, No tactile fremitus Cardiovascular: bruits, jugular venous distention (JVD), systolic murmur, No S3, No S4, No diastolic murmur, No edema, No gallop, No irregular rhythm, No murmurs/extra sounds, No nl pulses, No other, No regular rate and rhythm, No rub Gastrointestinal: bowel sounds, distended, nl liver, spleen, soft, No ascites, No firm, No hepatomegaly, No mass, No non-tender, No other, No rebound or guarding, No splenomegaly, No surgical scars, No tender Genitourinary - Female: No CMT, No CVA tenderness, No nl adnexae, No nl external genitalia, No other, No uterus Musculoskeletal: joint tenderness, muscle tone, muscle weakness Extremities: calf tenderness, pitting pedal edema (mild.) 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: OIL DIPPER II-XII intact, focal weakness, numbness Skin: diaphoresis, No ecchymosis, No laceration, No nl turgor, No other, No puncture, No rash or lesions Lymph: + CERVICAL AND SUPRACLAV lymph nodes, No nontender, No other Results Result Diagram: 06/12/17 0649 06/12/17 0648 Medications Medications Current Medications Ondansetron HCl (Zofran Inj) 4 mg Q6H PRN IV NAUSEA AND/OR VOMITING Last administered on 06/14/17 08:15; Admin Dose 4 MG; Start 06/11/17 at 05:00 Acetaminophen (Tylenol Tab) 650 mg Q6H PRN PO PAIN LEVEL 1-3 OR FEVER; Start at 05:00 Docusate Sodium (Colace) 100 mg Q12H PRN PO CONSTIPATION; Start 06/11/17 at 05: 00 Bisacodyl (Dulcolax) 5 mg DAILY PRN PO CONSTIPATION; Start 06/11/17 at 05:00 Pantoprazole (Protonix Iv) 40 mg DAILY@06 IV Last administered on 06/14/17 06: 08; Admin Dose 40 MG; Start 06/11/17 at 06:00 Enoxaparin Sodium (Lovenox) 40 mg DAILY SC Last administered on 06/14/17 08:17 ; Admin Dose 40 MG; Start 06/11/17 at 09:00 Acetaminophen (Tylenol Tab) 500 mg Q8 PRN PO pain and temp. more then 99F; Start 06/11/17 at 05:00 Aspirin (Aspirin) 81 mg DAILY PO Last administered on 06/14/17 08:15; Admin Dose 81 MG; Start 06/11/17 at 09:00 Ergocalciferol (Drisdol) 50,000 unit Q7D@09 PO Last administered on 06/13/17 11 :46; Admin Dose 50,000 UNIT; Start 06/13/17 at 09:00 Ferrous Sulfate (Ferrous Sulfate (Ec)) 325 mg DAILY PO Last administered on 06/14 08:14; Admin Dose 325 MG; Start 06/11/17 at 09:00 Folic Acid (Folic Acid) 1 mg DAILY PO Last administered on 06/14/17 08:13; Admin Dose 1 MG; Start 06/11/17 at 09:00 Metoprolol Tartrate (Lopressor) 50 mg BID PO Last administered on 06/14/17 08: 24; Admin Dose 50 MG; Start 06/11/17 at 09:00 Losartan Potassium (Cozaar) 100 mg DAILY PO Last administered on 06/14/17 08:24 ; Admin Dose 100 MG; Start 06/11/17 at 09:00 Hydrochlorothiazide (Hydrochlorothiazide) 25 mg DAILY PO Last administered on 11:45; Admin Dose 25 MG; Start 06/11/17 at 09:00 Clopidogrel Bisulfate (plaVIX) 75 mg DAILY PO Last administered on 06/14/17 08: 15; Admin Dose 75 MG; Start 06/11/17 at 18:08 KALPANA ANGELES MD Jun 14, 2017 09:20
--- NOTE | 2017-06-14 09:22 | PN ---
Date/Time of Note Date/Time of Note DATE: 06/14/17 TIME: 09:19 Assessment/Plan VTE Prophylaxis VTE Prophylaxis Intervention: ambulation, anti-embolic stocking VTE Contraindication Reason: peripheral vascular disease Lines/Catheters IV Catheter Type (from Nrs): Saline Lock Central line still needed: No Urinary Cath still in place: No Reason Cath still needed: urinary retention Assessment/Plan Assessment/Plan 1. Severe respiratory distress with worsening of wheezing and inability to sleep. 2.IHD angina, HX of recent (2 weeks ago) PTCA with one sent and 3 balloon dilatation of narrow coronary arteries(; according to the daughter).Troponin0.034 3. Dysphagia to solids and sometimes to liquids. 4. Pulmonary edema by x-ray with wheezing on admission, improved after lasix. 5. History of Hodgkin lymphoma- s/p chemotherapy and hydration 3-4 days ago. 6. Osteoarthritis with pain syndrome 7. Anxiety disorder. 8. Depression with grief reaction-s/p loss of . 9. Urinary incontinence. 10. Osteoporosis. 11. Kyphosis. 12. Postmenopausal syndrome. 13. Anemia with nl iron. 14. Brain atrophy on CT. 15. Left sphenoid sinusitis on CT. 16. Left ventricular hypertrophy. 17. Urinary incontinence. 18.Cerebrovascular accident, with left facial drooling, left facial weakness, with slurred speech and dysphagia. Mild left upper extremity weakness.mostly corrected. 19. Hypertension, now normotensive.Cardiomegaly on cxr 20.Medication noncompliance. now refuses studies> Asked about the essence of leaving a hospital AMA. Subjective 24 Hr Interval Summary Free Text/Dictation Weakness. Still I can't swallow well. I am strangling to be able to swallow. iT IS NOT IMPROVING. aCTUALLY IT IS GETTING WORSE. Exam/Review of Systems Vital Signs Vitals Vital Signs Date Time Temp Pulse Resp B/P Pulse Ox O2 Delivery O2 Flow Rate FiO2 06/14/17 08:50 18 06/14/17 08:05 82 06/14/17 08:04 98.1 131/60 96 06/14/17 00:16 21 06/11/17 04:35 Room Air Intake and Output 06/13/17 06/13/17 06/14/17 15:00 23:00 07:00 Intake Total 1050 ml 500 ml Balance 1050 ml 500 ml Results Result Diagram: 06/12/17 0649 06/12/17 0648 Medications Medications Current Medications Ondansetron HCl (Zofran Inj) 4 mg Q6H PRN IV NAUSEA AND/OR VOMITING Last administered on 06/14/17 08:15; Admin Dose 4 MG; Start 06/11/17 at 05:00 Acetaminophen (Tylenol Tab) 650 mg Q6H PRN PO PAIN LEVEL 1-3 OR FEVER; Start at 05:00 Docusate Sodium (Colace) 100 mg Q12H PRN PO CONSTIPATION; Start 06/11/17 at 05: 00 Bisacodyl (Dulcolax) 5 mg DAILY PRN PO CONSTIPATION; Start 06/11/17 at 05:00 Pantoprazole (Protonix Iv) 40 mg DAILY@06 IV Last administered on 06/14/17 06: 08; Admin Dose 40 MG; Start 06/11/17 at 06:00 Enoxaparin Sodium (Lovenox) 40 mg DAILY SC Last administered on 06/14/17 08:17 ; Admin Dose 40 MG; Start 06/11/17 at 09:00 Acetaminophen (Tylenol Tab) 500 mg Q8 PRN PO pain and temp. more then 99F; Start 06/11/17 at 05:00 Aspirin (Aspirin) 81 mg DAILY PO Last administered on 06/14/17 08:15; Admin Dose 81 MG; Start 06/11/17 at 09:00 Ergocalciferol (Drisdol) 50,000 unit Q7D@09 PO Last administered on 06/13/17 11 :46; Admin Dose 50,000 UNIT; Start 06/13/17 at 09:00 Ferrous Sulfate (Ferrous Sulfate (Ec)) 325 mg DAILY PO Last administered on 06/14 08:14; Admin Dose 325 MG; Start 06/11/17 at 09:00 Folic Acid (Folic Acid) 1 mg DAILY PO Last administered on 06/14/17 08:13; Admin Dose 1 MG; Start 06/11/17 at 09:00 Metoprolol Tartrate (Lopressor) 50 mg BID PO Last administered on 06/14/17 08: 24; Admin Dose 50 MG; Start 06/11/17 at 09:00 Losartan Potassium (Cozaar) 100 mg DAILY PO Last administered on 06/14/17 08:24 ; Admin Dose 100 MG; Start 06/11/17 at 09:00 Hydrochlorothiazide (Hydrochlorothiazide) 25 mg DAILY PO Last administered on 11:45; Admin Dose 25 MG; Start 06/11/17 at 09:00 Clopidogrel Bisulfate (plaVIX) 75 mg DAILY PO Last administered on 06/14/17 08: 15; Admin Dose 75 MG; Start 06/11/17 at 18:08 PEDRO KRUSE MD Jun 14, 2017 09:22
[2017-06-14] MEDS ORDERED: SOD CHLORIDE 0.9% 500 ML IV ONE (13:30)
--- NOTE | 2017-06-14 14:23 | CONS ---
Date/Time of Note Date/Time of Note DATE: 06/14/17 TIME: 14:20 Assessment/Plan Assessment/Plan Chief Complaint/Hosp Course Pulmonary consultation requested for evaluation of shortness of breath. Next History of presenting any; patient is a pleasant 71-year-old white lady who came into the emergency room yesterday with complaints of 2 day history of increasing shortness of breath mostly brought on by exertion. Patient denies any fever, chills, chest pain, wheezing. Upon evaluation a chest x-ray was done which has been interpreted as showing mild CHF. Chest x-ray also was personally reviewed by myself. Patient feeling somewhat better now and denies any further shortness of breath. According to her she was fine until a few days ago when the symptoms gradually started. Patient denies any history of body aches or myalgias. Past medical history; 1. Patient with a history of coronary artery disease, status post PTCA. 2. History of hypertension. 3. History of diabetes. Medications; reviewed. Allergies; iodine. Social history; never smoked, no history of any alcohol or drug abuse. Family history; patient is . His family members of diabetes hypertension in the family. 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 General exam; elderly woman, awake and alert, currently in no distress. Problems: Additional Assessment/Plan Assessment recommendations; 1. Patient admitted for CHF with interval improvement. 2. History of hypertension. 3. Prior history of coronary artery disease status post PTCA. Continue current treatment. Consider discharge. Consultation Date/Type/Reason Admit Date/Time Jun 11, 2017 at 02:35 Initial Consult Date 06/12/17 Type of Consultation: Pulmonary Referring Provider: PEDRO KRUSE MD 24 HR Interval Summary Free Text/Dictation Patient condition is improving. Denies any shortness breath, chest pain. General exam; elderly woman, awake alert currently in no distress. Exam/Review of Systems Vital Signs Vitals Vital Signs Date Time Temp Pulse Resp B/P Pulse Ox O2 Delivery O2 Flow Rate FiO2 06/14/17 12:14 91/53 06/14/17 12:04 77 06/14/17 11:59 97.7 17 100 06/14/17 00:16 21 06/11/17 04:35 Room Air Intake and Output 06/13/17 06/13/17 06/14/17 14:59 22:59 06:59 Intake Total 1050 ml 500 ml Balance 1050 ml 500 ml Exam HEENT exam; supple neck, positive JVD. No lymphadenopathy. Midline trachea. No thyromegaly. Chest exam; clear to auscultation. S1-S2 audible, no murmurs. Regular rhythm. Abdomen exam; soft, nontender. No organomegaly. Bowel sounds audible. Extremity exam; no peripheral edema. CREDIT UNDERWRITER exam; no focal deficit. Results Result Diagram: 06/12/1749 06/12/17 0648 Medications Medications Current Medications Ondansetron HCl (Zofran Inj) 4 mg Q6H PRN IV NAUSEA AND/OR VOMITING Last administered on 06/14/17 08:15; Admin Dose 4 MG; Start 06/11/17 at 05:00 Acetaminophen (Tylenol Tab) 650 mg Q6H PRN PO PAIN LEVEL 1-3 OR FEVER; Start at 05:00 Docusate Sodium (Colace) 100 mg Q12H PRN PO CONSTIPATION; Start 06/11/17 at 05: 00 Bisacodyl (Dulcolax) 5 mg DAILY PRN PO CONSTIPATION; Start 06/11/17 at 05:00 Pantoprazole (Protonix Iv) 40 mg DAILY@06 IV Last administered on 06/14/17 06: 08; Admin Dose 40 MG; Start 06/11/17 at 06:00 Enoxaparin Sodium (Lovenox) 40 mg DAILY SC Last administered on 06/14/17 08:17 ; Admin Dose 40 MG; Start 06/11/17 at 09:00 Acetaminophen (Tylenol Tab) 500 mg Q8 PRN PO pain and temp. more then 99F; Start 06/11/17 at 05:00 Aspirin (Aspirin) 81 mg DAILY PO Last administered on 06/14/17 08:15; Admin Dose 81 MG; Start 06/11/17 at 09:00 Ergocalciferol (Drisdol) 50,000 unit Q7D@09 PO Last administered on 06/13/17 11 :46; Admin Dose 50,000 UNIT; Start 06/13/17 at 09:00 Ferrous Sulfate (Ferrous Sulfate (Ec)) 325 mg DAILY PO Last administered on 06/14 08:14; Admin Dose 325 MG; Start 06/11/17 at 09:00 Folic Acid (Folic Acid) 1 mg DAILY PO Last administered on 06/14/17 08:13; Admin Dose 1 MG; Start 06/11/17 at 09:00 Metoprolol Tartrate (Lopressor) 50 mg BID PO Last administered on 06/14/17 08: 24; Admin Dose 50 MG; Start 06/11/17 at 09:00 Losartan Potassium (Cozaar) 100 mg DAILY PO Last administered on 06/14/17 08:24 ; Admin Dose 100 MG; Start 06/11/17 at 09:00 Hydrochlorothiazide (Hydrochlorothiazide) 25 mg DAILY PO Last administered on 11:45; Admin Dose 25 MG; Start 06/11/17 at 09:00 Clopidogrel Bisulfate 75 mg 75 mg DAILY PO Last administered on 06/14/17 08:15 ; Admin Dose 75 MG; Start 06/11/17 at 18:08 Sodium Chloride (NS) 500 ml @ 500 mls/hr Q1H ONCE IV Last administered on 13:38; Admin Dose 500 MLS/HR; Start 06/14/17 at 13:30; Stop 06/14/17 at 14:29 JAZZMINE BILL Jun 14, 2017 14:23
--- NOTE | 2017-06-14 15:05 | CONS ---
Date/Time of Note Date/Time of Note DATE: 06/14/17 TIME: 14:57 Assessment/Plan Assessment/Plan Chief Complaint/Hosp Course IMP: 1.CHF-systolic EF 25% by echo read this admit down from 40% prior. Patient refused stress test. Improved volume status 2.H/O PTCA/stent 3.HTN 4.Anemia 5.Psych d/o REcc: -Tele -Lasix held due to low BP and given IVF bolus -Continue asa/plavix -Continue BB/losartan but will decrease dose to allow them to better tolerate -Continue hctz Problems: Consultation Date/Type/Reason Admit Date/Time Jun 11, 2017 at 02:35 Initial Consult Date 06/11/17 Type of Consultation: cardiology Reason for Consultation CHF Referring Provider: PEDRO KRUSE MD Exam/Review of Systems Vital Signs Vitals Vital Signs Date Time Temp Pulse Resp B/P Pulse Ox O2 Delivery O2 Flow Rate FiO2 06/14/17 12:14 91/53 06/14/17 12:04 77 06/14/17 11:59 97.7 17 100 06/14/17 00:16 21 06/11/17 04:35 Room Air Intake and Output 06/13/17 06/13/17 06/14/17 15:00 23:00 07:00 Intake Total 1050 ml 500 ml Balance 1050 ml 500 ml Exam Review of Systems: CONSTITUTIONAL: No fevers, chills. PULMONARY: No sob CARDIOVASCULAR: No chest pain/palpitations GASTROINTESTINAL: Dysphagia GENITOURINARY: No hematuria/dysuria. MUSCULOSKELETAL: No myagias/arthalgias. PSYCHIATRIC: The patient denies depression. NEUROLOGIC: No weakness Constitutional: alert Psych: no complaints Head: normocephalic ENMT: mucosa pink and moist Neck: jvd (9 cm water), supple Respiratory: diminished breath sounds (at bases/B) Cardiovascular: regular rate and rhythm Gastrointestinal: non-tender, soft Musculoskeletal: muscle tone (normal) Extremities: edema (none) 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: other (No focal deficits) Results Result Diagram: 06/12/17 0649 06/12/17 0648 Medications Medications Current Medications Ondansetron HCl (Zofran Inj) 4 mg Q6H PRN IV NAUSEA AND/OR VOMITING Last administered on 06/14/17t 08:15; Admin Dose 4 MG; Start 06/11/17 at 05:00 Acetaminophen (Tylenol Tab) 650 mg Q6H PRN PO PAIN LEVEL 1-3 OR FEVER; Start at 05:00 Docusate Sodium (Colace) 100 mg Q12H PRN PO CONSTIPATION; Start 06/11/17 at 05: 00 Bisacodyl (Dulcolax) 5 mg DAILY PRN PO CONSTIPATION; Start 06/11/17 at 05:00 Pantoprazole (Protonix Iv) 40 mg DAILY@06 IV Last administered on 06/14/17 06: 08; Admin Dose 40 MG; Start 06/11/17 at 06:00 Enoxaparin Sodium (Lovenox) 40 mg DAILY SC Last administered on 06/14/17 08:17 ; Admin Dose 40 MG; Start 06/11/17 at 09:00 Acetaminophen (Tylenol Tab) 500 mg Q8 PRN PO pain and temp. more then 99F; Start 06/11/17 at 05:00 Aspirin (Aspirin) 81 mg DAILY PO Last administered on 06/14/17 08:15; Admin Dose 81 MG; Start 06/11/17 at 09:00 Ergocalciferol (Drisdol) 50,000 unit Q7D@09 PO Last administered on 06/13/17 11 :46; Admin Dose 50,000 UNIT; Start 06/13/17 at 09:00 Ferrous Sulfate (Ferrous Sulfate (Ec)) 325 mg DAILY PO Last administered on 06/14 08:14; Admin Dose 325 MG; Start 06/11/17 at 09:00 Folic Acid (Folic Acid) 1 mg DAILY PO Last administered on 06/14/17 08:13; Admin Dose 1 MG; Start 06/11/17 at 09:00 Metoprolol Tartrate (Lopressor) 50 mg BID PO Last administered on 06/14/17 08: 24; Admin Dose 50 MG; Start 06/11/17 at 09:00 Losartan Potassium (Cozaar) 100 mg DAILY PO Last administered on 06/14/17 08:24 ; Admin Dose 100 MG; Start 06/11/17 at 09:00 Hydrochlorothiazide (Hydrochlorothiazide) 25 mg DAILY PO Last administered on 11:45; Admin Dose 25 MG; Start 06/11/17 at 09:00 Clopidogrel Bisulfate (plaVIX) 75 mg DAILY PO Last administered on 06/14/17t 08: 15; Admin Dose 75 MG; Start 06/11/17 at 18:08 ARIEL HOBBS Jun 14, 2017 15:05
--- NOTE | 2017-06-14 16:48 | PN ---
Date/Time of Note Date/Time of Note DATE: 06/14/17 TIME: 16:46 Assessment/Plan VTE Prophylaxis VTE Prophylaxis Intervention: SCD's Lines/Catheters [facility] Saline Lock Urinary Cath still in place: No Assessment/Plan Assessment/Plan Assessment: * New-onset dysphagia/rule out GERD/motility disorder/neoplasm/stricture * Hodgkin's lymphoma under treatment treatment has been held for the last 3 months, * Coronary artery disease/CHF/decompensated * Diabetes mellitus type 2 * Hypertension * History of DVT * History of irritable bowel syndrome * Chronic anemia/multifactorial Plan: * Speech pathology evaluation plus barium esophagogram * Continue cardiac management * Consider endoscopy pending review of above studies * case discussed with DR Sheldon * Further orders will depend on clinical course Subjective 24 Hr Interval Summary Free Text/Dictation * course reviewed * Patient seen and examined * still for barium swallow * No untoward events overnight Exam/Review of Systems Vital Signs Vitals Vital Signs Date Time Temp Pulse Resp B/P Pulse Ox O2 Delivery O2 Flow Rate FiO2 06/14/17 16:03 82 06/14/17 15:25 98.5 17 97/56 96 06/14/17 00:16 21 06/11/17 04:35 Room Air Intake and Output 06/13/17 06/13/17 06/14/17 15:00 23:00 07:00 Intake Total 1050 ml 500 ml Balance 1050 ml 500 ml Exam Constitutional: alert, frail Neck: non-tender, supple Respiratory: clear to auscultation, normal air movement Cardiovascular: nl pulses, regular rate and rhythm Gastrointestinal: non-tender, soft Musculoskeletal: nl extremities to inspection Extremities: normal pulses Skin: nl turgor, No rash or lesions Results Result Diagram: 06/12/1749 06/12/17 0648 Medications Medications Current Medications Ondansetron HCl (Zofran Inj) 4 mg Q6H PRN IV NAUSEA AND/OR VOMITING Last administered on 06/14/17t 08:15; Admin Dose 4 MG; Start 06/11/17 at 05:00 Acetaminophen (Tylenol Tab) 650 mg Q6H PRN PO PAIN LEVEL 1-3 OR FEVER; Start at 05:00 Docusate Sodium (Colace) 100 mg Q12H PRN PO CONSTIPATION; Start 06/11/17 at 05: 00 Bisacodyl (Dulcolax) 5 mg DAILY PRN PO CONSTIPATION; Start 06/11/17 at 05:00 Pantoprazole (Protonix Iv) 40 mg DAILY@06 IV Last administered on 06/14/17 06: 08; Admin Dose 40 MG; Start 06/11/17 at 06:00 Enoxaparin Sodium (Lovenox) 40 mg DAILY SC Last administered on 06/14/17 08:17 ; Admin Dose 40 MG; Start 06/11/17 at 09:00 Acetaminophen (Tylenol Tab) 500 mg Q8 PRN PO pain and temp. more then 99F; Start 06/11/17 at 05:00 Aspirin (Aspirin) 81 mg DAILY PO Last administered on 06/14/17 08:15; Admin Dose 81 MG; Start 06/11/17 at 09:00 Ergocalciferol (Drisdol) 50,000 unit Q7D@09 PO Last administered on 06/13/17 11 :46; Admin Dose 50,000 UNIT; Start 06/13/17 at 09:00 Ferrous Sulfate (Ferrous Sulfate (Ec)) 325 mg DAILY PO Last administered on 06/14 08:14; Admin Dose 325 MG; Start 06/11/17 at 09:00 Folic Acid (Folic Acid) 1 mg DAILY PO Last administered on 06/14/17 08:13; Admin Dose 1 MG; Start 06/11/17 at 09:00 Losartan Potassium (Cozaar) 100 mg DAILY PO Last administered on 06/14/17 08:24 ; Admin Dose 100 MG; Start 06/11/17 at 09:00 Hydrochlorothiazide (Hydrochlorothiazide) 25 mg DAILY PO Last administered on 11:45; Admin Dose 25 MG; Start 06/11/17 at 09:00 Clopidogrel Bisulfate (plaVIX) 75 mg DAILY PO Last administered on 06/14/17 08: 15; Admin Dose 75 MG; Start 06/11/17 at 18:08 Metoprolol Tartrate (Lopressor) 25 mg BID PO ; Start 06/14/17 at 21:00 UMESH SOLIZ NP Jun 14, 2017 16:48
[2017-06-14] MEDS: METOPROLOL 25 MG TAB PO SCH (21:00)
[2017-06-15] VITALS (13 sets, daily range): BP systolic 98–149; BP diastolic 51–76; PULSE 84–106; RESP 17–20
[2017-06-15] MEDS: PANTOPRAZOLE 40 MG INJ IV SCH (05:14)
[2017-06-15] MEDS: IPRATROPIUM (NEB) 0.5 MG/2.5 ML AMP INH SCH ×2 (07:44→15:36)
[2017-06-15] MEDS: ALBUTEROL 0.083% (NEB) 2.5 MG/3 ML AMP HHN SCH ×2 (07:44→15:35)
[2017-06-15] MEDS: CLOPIDOGREL 75 MG TAB PO SCH (08:47)
[2017-06-15] MEDS: FERROUS SULFATE (EC) 325 MG TAB PO SCH (08:47)
[2017-06-15] MEDS: ASPIRIN 81 MG TAB PO SCH (08:47)
[2017-06-15] MEDS: FOLIC ACID 1 MG TAB PO SCH (08:47)
[2017-06-15] MEDS: METOPROLOL 25 MG TAB PO SCH ×2 (08:48→22:09)
[2017-06-15] MEDS: LOSARTAN 50 MG TAB PO SCH (08:49)
[2017-06-15] MEDS: HYDROCHLOROTHIAZIDE 25 MG TAB PO SCH (08:50)
[2017-06-15] MEDS: ENOXAPARIN 40 MG/0.4 ML SYG SC SCH (08:51)
--- NOTE | 2017-06-15 12:03 | CONS ---
Date/Time of Note Date/Time of Note DATE: 06/15/17 TIME: 12:02 Assessment/Plan Assessment/Plan Chief Complaint/Hosp Course IMP: 1.CHF-systolic EF 25% by echo read this admit down from 40% prior. Patient refused stress test. Improved volume status 2.H/O PTCA/stent 3.HTN 4.Anemia 5.Psych d/o REcc: -Tele -Lasix held due to low BP -Continue asa/plavix -Continue BB/losartan but will decrease dose to allow them to better tolerate -Continue hctz as tolerated only -Await records from [place]/[facility]/stent Problems: Consultation Date/Type/Reason Admit Date/Time Jun 11, 2017 at 02:35 Initial Consult Date 06/11/17 Type of Consultation: cardiology Reason for Consultation CHF Referring Provider: PEDRO KRUSE MD Exam/Review of Systems Vital Signs Vitals Vital Signs Date Time Temp Pulse Resp B/P Pulse Ox O2 Delivery O2 Flow Rate FiO2 06/15/17 11:39 97.8 100 17 136/64 99 06/15/17 07:40 21 Intake and Output 06/14/17 06/14/17 06/15/17 15:00 23:00 07:00 Intake Total 300 ml Balance 300 ml Exam Review of Systems: CONSTITUTIONAL: No fevers, chills. PULMONARY: mild sob CARDIOVASCULAR: No chest pain/palpitations GASTROINTESTINAL: No nausea/vomiting. GENITOURINARY: No hematuria/dysuria. MUSCULOSKELETAL: No myagias/arthalgias. PSYCHIATRIC: The patient denies depression. NEUROLOGIC: No weakness Constitutional: alert Psych: no complaints Head: normocephalic ENMT: mucosa pink and moist Neck: jvd (9 cm water), supple Respiratory: diminished breath sounds (at bases/B) Cardiovascular: regular rate and rhythm Gastrointestinal: non-tender, soft Musculoskeletal: muscle tone (normal) Extremities: edema (none) 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: other (No focal deficits) Results Result Diagram: 06/12/1749 06/12/17 0648 Medications Medications Current Medications Ondansetron HCl (Zofran Inj) 4 mg Q6H PRN IV NAUSEA AND/OR VOMITING Last administered on 06/14/17t 08:15; Admin Dose 4 MG; Start 06/11/17 at 05:00 Acetaminophen (Tylenol Tab) 650 mg Q6H PRN PO PAIN LEVEL 1-3 OR FEVER; Start at 05:00 Docusate Sodium (Colace) 100 mg Q12H PRN PO CONSTIPATION; Start 06/11/17 at 05: 00 Bisacodyl (Dulcolax) 5 mg DAILY PRN PO CONSTIPATION; Start 06/11/17 at 05:00 Pantoprazole (Protonix Iv) 40 mg DAILY@06 IV Last administered on 06/15/17 05: 14; Admin Dose 40 MG; Start 06/11/17 at 06:00 Enoxaparin Sodium (Lovenox) 40 mg DAILY SC Last administered on 06/15/17 08:51 ; Admin Dose 40 MG; Start 06/11/17 at 09:00 Acetaminophen (Tylenol Tab) 500 mg Q8 PRN PO pain and temp. more then 99F; Start 06/11/17 at 05:00 Aspirin (Aspirin) 81 mg DAILY PO Last administered on 06/15/17 08:47; Admin Dose 81 MG; Start 06/11/17 at 09:00 Ergocalciferol (Drisdol) 50,000 unit Q7D@09 PO Last administered on 06/13/17 11 :46; Admin Dose 50,000 UNIT; Start 06/13/17 at 09:00 Ferrous Sulfate (Ferrous Sulfate (Ec)) 325 mg DAILY PO Last administered on 06/15 08:47; Admin Dose 325 MG; Start 06/11/17 at 09:00 Folic Acid (Folic Acid) 1 mg DAILY PO Last administered on 06/15/17 08:47; Admin Dose 1 MG; Start 06/11/17 at 09:00 Losartan Potassium (Cozaar) 100 mg DAILY PO Last administered on 06/14/17 08:24 ; Admin Dose 100 MG; Start 06/11/17 at 09:00 Hydrochlorothiazide (Hydrochlorothiazide) 25 mg DAILY PO Last administered on 11:45; Admin Dose 25 MG; Start 06/11/17 at 09:00 Clopidogrel Bisulfate (plaVIX) 75 mg DAILY PO Last administered on 06/15/17 08: 47; Admin Dose 75 MG; Start 06/11/17 at 18:08 Metoprolol Tartrate (Lopressor) 25 mg BID PO ; Start 06/14/17 at 21:00 ARIEL HOBBS Jun 15, 2017 12:03
--- NOTE | 2017-06-15 13:10 | CONS ---
Date/Time of Note Date/Time of Note DATE: 06/15/17 TIME: 13:08 Assessment/Plan Assessment/Plan Chief Complaint/Hosp Course Pulmonary consultation requested for evaluation of shortness of breath. Next History of presenting any; patient is a pleasant 71-year-old white lady who came into the emergency room yesterday with complaints of 2 day history of increasing shortness of breath mostly brought on by exertion. Patient denies any fever, chills, chest pain, wheezing. Upon evaluation a chest x-ray was done which has been interpreted as showing mild CHF. Chest x-ray also was personally reviewed by myself. Patient feeling somewhat better now and denies any further shortness of breath. According to her she was fine until a few days ago when the symptoms gradually started. Patient denies any history of body aches or myalgias. Past medical history; 1. Patient with a history of coronary artery disease, status post PTCA. 2. History of hypertension. 3. History of diabetes. Medications; reviewed. Allergies; iodine. Social history; never smoked, no history of any alcohol or drug abuse. Family history; patient is . His family members of diabetes hypertension in the family. 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 General exam; elderly woman, awake and alert, currently in no distress. Problems: Additional Assessment/Plan Assessment and recommendations; 1. Patient admitted with CHF exacerbation with significant clinical improvement. 2. History of hypertension diabetes. 3. History of underlying coronary artery disease, status post angioplasty in the past. Continue current treatment. Consider discharge. Consultation Date/Type/Reason Admit Date/Time Jun 11, 2017 at 02:35 Initial Consult Date 06/12/17 Type of Consultation: Pulmonary Referring Provider: PEDRO KRUSE MD 24 HR Interval Summary Free Text/Dictation Patient condition stable. Denies any shortness of breath, coughing, wheezing. General exam; elderly woman, awake and alert. Currently in no distress. Exam/Review of Systems Vital Signs Vitals Vital Signs Date Time Temp Pulse Resp B/P Pulse Ox O2 Delivery O2 Flow Rate FiO2 06/15/17 11:39 97.8 100 17 136/64 99 06/15/17 07:40 21 Intake and Output 06/14/17 06/14/17 06/15/17 15:00 23:00 07:00 Intake Total 300 ml Balance 300 ml Exam HEENT exam; supple neck, positive JVD. No lymphadenopathy. Midline trachea. No thyromegaly. Pharynx is clear. Chest exam; diminished but clear breath sound. S1-S2 audible, no murmurs. Regular rhythm. Abdomen exam; soft, no organomegaly. Bowel sounds audible. Extremity exam; no peripheral edema. DOPEMAN exam; no focal deficit. Results Result Diagram: 06/12/17 0649 06/12/17 0648 Medications Medications Current Medications Ondansetron HCl (Zofran Inj) 4 mg Q6H PRN IV NAUSEA AND/OR VOMITING Last administered on 06/14/17 08:15; Admin Dose 4 MG; Start 06/11/17 at 05:00 Acetaminophen (Tylenol Tab) 650 mg Q6H PRN PO PAIN LEVEL 1-3 OR FEVER; Start at 05:00 Docusate Sodium (Colace) 100 mg Q12H PRN PO CONSTIPATION; Start 06/11/17 at 05: 00 Bisacodyl (Dulcolax) 5 mg DAILY PRN PO CONSTIPATION; Start 06/11/17 at 05:00 Pantoprazole (Protonix Iv) 40 mg DAILY@06 IV Last administered on 06/15/17 05: 14; Admin Dose 40 MG; Start 06/11/17 at 06:00 Enoxaparin Sodium (Lovenox) 40 mg DAILY SC Last administered on 06/15/17 08:51 ; Admin Dose 40 MG; Start 06/11/17 at 09:00 Acetaminophen (Tylenol Tab) 500 mg Q8 PRN PO pain and temp. more then 99F; Start 06/11/17 at 05:00 Aspirin (Aspirin) 81 mg DAILY PO Last administered on 06/15/17 08:47; Admin Dose 81 MG; Start 06/11/17 at 09:00 Ergocalciferol (Drisdol) 50,000 unit Q7D@09 PO Last administered on 06/13/17 11 :46; Admin Dose 50,000 UNIT; Start 06/13/17 at 09:00 Ferrous Sulfate (Ferrous Sulfate (Ec)) 325 mg DAILY PO Last administered on 06/15 08:47; Admin Dose 325 MG; Start 06/11/17 at 09:00 Folic Acid (Folic Acid) 1 mg DAILY PO Last administered on 06/15/17 08:47; Admin Dose 1 MG; Start 06/11/17 at 09:00 Hydrochlorothiazide (Hydrochlorothiazide) 25 mg DAILY PO Last administered on 11:45; Admin Dose 25 MG; Start 06/11/17 at 09:00 Clopidogrel Bisulfate (plaVIX) 75 mg DAILY PO Last administered on 06/15/17 08: 47; Admin Dose 75 MG; Start 06/11/17 at 18:08 Metoprolol Tartrate (Lopressor) 25 mg BID PO ; Start 06/14/17 at 21:00 Losartan Potassium 50 mg 50 mg DAILY PO ; Start 06/16/17 at 09:00 Sodium Chloride (NS) 1,000 ml @ 75 mls/hr [id number] IV ; Start 06/15/17 at 23:55; Stop 06/16/17 at 16:00 JAZZMINE BILL Jun 15, 2017 13:10
--- NOTE | 2017-06-15 13:41 | RADRPT ---
PROCEDURE: XR Chest. CLINICAL INDICATION: CHF TECHNIQUE: Single frontal view of the chest was obtained COMPARISON: Chest x-ray 06/11/2017 FINDINGS: There is a greater inspiratory result as compared to prior study. The cardiac silhouette is borderline enlarged. There are atherosclerotic calcifications of the thoracic aorta. No pneumothorax, pleural effusion, or parenchymal consolidation is identified. There is no evidence of significant pulmonary vascular congestion. There are degenerative changes of the visualized spine. IMPRESSION: 1. No evidence of an acute cardiopulmonary process. 2. Decreased pulmonary vascular congestion compared to prior study. 3. Borderline cardiomegaly. 4. Thoracic aortic atherosclerotic disease. RPTAT: EE Physician Mary Date Time Electronically viewed and signed by Physician Mary on 06/15/2017 13:41 /
[2017-06-15] MEDS ORDERED: BARIUM SULFATE 454 GM TUBE (E-Z PASTE) PO ONE (14:07)
[2017-06-15] MEDS ORDERED: BARIUM SULFATE 135 ML (E-Z HD) PO ONE (14:07)
--- NOTE | 2017-06-15 16:15 | PN ---
Date/Time of Note Date/Time of Note DATE: 06/15/17 TIME: 16:13 Assessment/Plan VTE Prophylaxis VTE Prophylaxis Intervention: ambulation Lines/Catheters IV [facility] Urinary Cath still in place: No Assessment/Plan Assessment/Plan Assessment: New-onset dysphagia/rule out GERD/motility disorder/neoplasm/stricture Hodgkin's lymphoma under treatment treatment has been held for the last 3 months, Coronary artery disease/CHF/decompensated Diabetes mellitus type 2 Hypertension History of DVT History of irritable bowel syndrome Chronic anemia/multifactorial Plan: Speech pathology evaluation plus barium esophagogram Continue cardiac management Consider endoscopy pending review of above studies case discussed with DR Sheldon Further orders will depend on clinical course Subjective 24 Hr Interval Summary Free Text/Dictation * Course reviewed with RN * Awaiting barium swallow results * No untoward events overnight Exam/Review of Systems Vital Signs Vitals Vital Signs Date Time Temp Pulse Resp B/P Pulse Ox O2 Delivery O2 Flow Rate FiO2 06/15/17 16:03 98 06/15/17 15:21 98.3 18 142/76 98 06/15/17 07:40 21 Intake and Output 06/14/17 06/14/17 06/15/17 15:00 23:00 07:00 Intake Total 300 ml Balance 300 ml Exam Constitutional: alert, frail Head: atraumatic, normocephalic Neck: non-tender, supple Respiratory: clear to auscultation, normal air movement Cardiovascular: nl pulses, regular rate and rhythm Gastrointestinal: non-tender, soft Musculoskeletal: nl extremities to inspection, nl gait and stance Extremities: normal pulses 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: nl speech, nl strength Skin: nl turgor, No rash or lesions Results Result Diagram: 06/12/17 0649 06/12/17 0648 Medications Medications Current Medications Ondansetron HCl (Zofran Inj) 4 mg Q6H PRN IV NAUSEA AND/OR VOMITING Last administered on 06/14/17t 08:15; Admin Dose 4 MG; Start 06/11/17 at 05:00 Acetaminophen (Tylenol Tab) 650 mg Q6H PRN PO PAIN LEVEL 1-3 OR FEVER; Start at 05:00 Docusate Sodium (Colace) 100 mg Q12H PRN PO CONSTIPATION; Start 06/11/17 at 05: 00 Bisacodyl (Dulcolax) 5 mg DAILY PRN PO CONSTIPATION; Start 06/11/17 at 05:00 Pantoprazole (Protonix Iv) 40 mg DAILY@06 IV Last administered on 06/15/17 05: 14; Admin Dose 40 MG; Start 06/11/17 at 06:00 Enoxaparin Sodium (Lovenox) 40 mg DAILY SC Last administered on 06/15/17 08:51 ; Admin Dose 40 MG; Start 06/11/17 at 09:00 Acetaminophen (Tylenol Tab) 500 mg Q8 PRN PO pain and temp. more then 99F; Start 06/11/17 at 05:00 Aspirin (Aspirin) 81 mg DAILY PO Last administered on 06/15/17 08:47; Admin Dose 81 MG; Start 06/11/17 at 09:00 Ergocalciferol (Drisdol) 50,000 unit Q7D@09 PO Last administered on 06/13/17 11 :46; Admin Dose 50,000 UNIT; Start 06/13/17 at 09:00 Ferrous Sulfate (Ferrous Sulfate (Ec)) 325 mg DAILY PO Last administered on 06/15 08:47; Admin Dose 325 MG; Start 06/11/17 at 09:00 Folic Acid (Folic Acid) 1 mg DAILY PO Last administered on 06/15/17 08:47; Admin Dose 1 MG; Start 06/11/17 at 09:00 Hydrochlorothiazide (Hydrochlorothiazide) 25 mg DAILY PO Last administered on 11:45; Admin Dose 25 MG; Start 06/11/17 at 09:00 Clopidogrel Bisulfate (plaVIX) 75 mg DAILY PO Last administered on 06/15/17 08: 47; Admin Dose 75 MG; Start 06/11/17 at 18:08 Metoprolol Tartrate (Lopressor) 25 mg BID PO ; Start 06/14/17 at 21:00 Losartan Potassium 50 mg 50 mg DAILY PO ; Start 06/16/17 at 09:00 Sodium Chloride (NS) 1,000 ml @ 75 mls/hr [id number] IV ; Start 06/15/17 at 23:55; Stop 06/16/17 at 16:00 UMESH SOLIZ NP Jun 15, 2017 16:15
--- NOTE | 2017-06-15 16:57 | RADRPT ---
PROCEDURE: Video-fluoroscopy swallowing study. CLINICAL INDICATION: Dysphagia. TECHNIQUE: Fluoroscopic guided video swallowing study was done in conjunction with the speech ther apist. The study was confined to the oral, pharyngeal, and cervical phases of the swallowing mechani sm. 1.4 minutes of fluoroscopy time was used. 15 series of images were obtained. COMPARISON: No prior study is available for comparison. FINDINGS: There is no evidence of aspiration during the exam. There is penetration with thin liquids. IMPRESSION: 1. No aspiration during swallowing. Penetration with thin liquids. 2. Please refer to the speech therapist's recommendations for future feedings. RPTAT: QQ .Samson Cordova MD, MD Date Time Electronically viewed and signed by .Samson Cordova MD, MD on 06/15/2017 16:57 .R/
[2017-06-15] MEDS: NACL 0.9% 3 ML SYG IV SCH (22:06)
--- NOTE | 2017-06-15 23:15 | CONS ---
Date/Time of Note Date/Time of Note DATE: 06/15/17 TIME: 23:14 Assessment/Plan Assessment/Plan Chief Complaint/Hosp Course Hodgkin lymphoma- PROGRESSIVE s/p chemotherapy 1 MO AGO PLAN TO CHANGE CHEMO PROTOCOL SOON PT IS STABILIZED/DC Mild respiratory distress with improving of wheezing. Sleept well. IHD angina, HX of recent (2 weeks ago) PTCA with one sent and 3 balloon dilatation of narrow coronary arteries(; according to the daughter).Troponin0.034 Dysphagia to solids and sometimes to liquids. Pulmonary edema by x-ray with wheezing on admission, improved after lasix. Osteoarthritis with pain syndrome Anxiety disorder. Depression with grief reaction-s/p loss of . Urinary incontinence. Osteoporosis. Kyphosis. Postmenopausal syndrome. Anemia with nl iron. Brain atrophy on CT. Left sphenoid sinusitis on CT. Left ventricular hypertrophy. Urinary incontinence. Cerebrovascular accident, with left facial drooling, left facial weakness, with slurred speech and dysphagia. Mild left upper extremity weakness.mostly corrected. Hypertension, now normotensive.Cardiomegaly on cxr Cervico-brachial syndrome Medication noncompliance. Elevated D.Dimer- on lovenox. Problems: Consultation Date/Type/Reason Admit Date/Time Jun 11, 2017 at 02:35 Initial Consult Date 06/11/17 Type of Consultation: [facility] Referring Provider: PEDRO KRUSE MD 24 HR Interval Summary Free Text/Dictation ALL NOTED COUNT REVIEWED NO BLEEDING Exam/Review of Systems Vital Signs Vitals Vital Signs Date Time Temp Pulse Resp B/P Pulse Ox O2 Delivery O2 Flow Rate FiO2 06/15/17 20:11 99 06/15/17 19:55 98.8 18 149/74 96 06/15/17 07:40 21 Intake and Output 06/14/17 06/14/17 06/15/17 15:00 23:00 07:00 Intake Total 300 ml Balance 300 ml Exam Constitutional: alert, distress, frail, oriented, well developed, No non-verbal, No other Psych: anxiety, depression, No confusion, No nl mood/affect, No no complaints, No other, No suicidal Head: atraumatic, normocephalic Eyes: EOMI, PERRL, nl lids, No fundi, disc, No icteric, No nl conjunctiva, No nl sclera, No other ENMT: nl lips & teeth, No intubated, No mucosa pink and moist, No nl external ears & nose, No nl nasal mucosa & septum, No other, No tympanic membranes Neck: bruits, jvd, nuchal rigidity, thyromegaly, No masses, No non-tender, No other, No supple Respiratory: congested cough, labored breathing, wheezing, No clear to auscultation, No crackles/rales, No diminished breath sounds, No intercostal retraction, No normal air movement, No other, No respirations, No tactile fremitus Cardiovascular: bruits, jugular venous distention (JVD), systolic murmur, No S3, No S4, No diastolic murmur, No edema, No gallop, No irregular rhythm, No murmurs/extra sounds, No nl pulses, No other, No regular rate and rhythm, No rub Gastrointestinal: bowel sounds, distended, nl liver, spleen, soft, No ascites, No firm, No hepatomegaly, No mass, No non-tender, No other, No rebound or guarding, No splenomegaly, No surgical scars, No tender Genitourinary - Female: No CMT, No CVA tenderness, No nl adnexae, No nl external genitalia, No other, No uterus Musculoskeletal: joint tenderness, muscle tone, muscle weakness Extremities: calf tenderness, pitting pedal edema (mild.) 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: K[employer] II-XII intact, focal weakness, numbness Skin: diaphoresis, No ecchymosis, No laceration, No nl turgor, No other, No puncture, No rash or lesions Lymph: + CERVICAL AND SUPRACLAV lymph nodes, No nontender, No other Results Result Diagram: 06/12/17 0649 06/12/17 0648 Medications Medications Current Medications Ondansetron HCl (Zofran Inj) 4 mg Q6H PRN IV NAUSEA AND/OR VOMITING Last administered on 06/14/17 08:15; Admin Dose 4 MG; Start 06/11/17 at 05:00 Acetaminophen (Tylenol Tab) 650 mg Q6H PRN PO PAIN LEVEL 1-3 OR FEVER; Start at 05:00 Docusate Sodium (Colace) 100 mg Q12H PRN PO CONSTIPATION; Start 06/11/17 at 05: 00 Bisacodyl (Dulcolax) 5 mg DAILY PRN PO CONSTIPATION; Start 06/11/17 at 05:00 Pantoprazole (Protonix Iv) 40 mg DAILY@06 IV Last administered on 06/15/17 05: 14; Admin Dose 40 MG; Start 06/11/17 at 06:00 Enoxaparin Sodium (Lovenox) 40 mg DAILY SC Last administered on 06/15/17 08:51 ; Admin Dose 40 MG; Start 06/11/17 at 09:00 Acetaminophen (Tylenol Tab) 500 mg Q8 PRN PO pain and temp. more then 99F; Start 06/11/17 at 05:00 Aspirin (Aspirin) 81 mg DAILY PO Last administered on 06/15/17 08:47; Admin Dose 81 MG; Start 06/11/17 at 09:00 Ergocalciferol (Drisdol) 50,000 unit Q7D@09 PO Last administered on 06/13/17 11 :46; Admin Dose 50,000 UNIT; Start 06/13/17 at 09:00 Ferrous Sulfate (Ferrous Sulfate (Ec)) 325 mg DAILY PO Last administered on 06/15 08:47; Admin Dose 325 MG; Start 06/11/17 at 09:00 Folic Acid (Folic Acid) 1 mg DAILY PO Last administered on 06/15/17 08:47; Admin Dose 1 MG; Start 06/11/17 at 09:00 Hydrochlorothiazide (Hydrochlorothiazide) 25 mg DAILY PO Last administered on 11:45; Admin Dose 25 MG; Start 06/11/17 at 09:00 Clopidogrel Bisulfate (plaVIX) 75 mg DAILY PO Last administered on 06/15/17 08: 47; Admin Dose 75 MG; Start 06/11/17 at 18:08 Metoprolol Tartrate (Lopressor) 25 mg BID PO Last administered on 06/15/17 22: 09; Admin Dose 25 MG; Start 06/14/17 at 21:00 Losartan Potassium 50 mg 50 mg DAILY PO ; Start 06/16/17 at 09:00 Sodium Chloride (NS) 1,000 ml @ 75 mls/hr [id number] IV ; Start 06/15/17 at 23:55; Stop 06/16/17 at 16:00 KALPANA ANGELES MD Jun 15, 2017 23:15
[2017-06-15] MEDS ORDERED: SOD CHLORIDE 0.9% 1,000 ML IV SCH (23:55)
[2017-06-16] VITALS (7 sets, daily range): BP systolic 102–130; BP diastolic 51–64; PULSE 83–84; RESP 17
[2017-06-16] MEDS: NACL 0.9% 3 ML SYG IV SCH (05:13)
[2017-06-16] MEDS: PANTOPRAZOLE 40 MG INJ IV SCH (05:13)
[2017-06-16] MEDS: ALBUTEROL 0.083% (NEB) 2.5 MG/3 ML AMP HHN SCH ×2 (07:22)
[2017-06-16] MEDS: IPRATROPIUM (NEB) 0.5 MG/2.5 ML AMP INH SCH ×2 (07:22)
--- NOTE | 2017-06-16 08:34 | CONS ---
Date/Time of Note Date/Time of Note DATE: 06/16/17 TIME: 08:30 Assessment/Plan Assessment/Plan Additional Assessment/Plan The site of the patient's dysphagia is likely esophageal given the results of the MBSS. Recommend evaluation by GI. Consultation Date/Type/Reason Admit Date/Time Jun 11, 2017 at 02:35 Date of Consultation: Jun 16, 2017 Type of Consultation: ENT Reason for Consultation Dysphagia Hx of Present Illness ENT consulted for dysphagia. Pt reports that she has intermittent sensation of difficulty swallowing. She points to her mid-sternum as to the area where food seems to get stuck. Voice stable. Denies odynophagia. MBSS performed yesterday without signs of aspiration. Constitutional: diaphoresis, poor po, requiring O2, No chills, No disoriented, No febrile, No improved, No no complaints, No other, No requiring IVF Eyes: No discharge, No no complaints, No other, No pain, No redness, No visual change ENT: No bleeding, No congestion, No discharge, No dysphagia, No no complaints, No other, No pain, No sore throat Respiratory: cough, pleuritic pain, shortness of breath Cardiovascular: chest pain, lightheadedness, orthopenea, palpitations, paroxysmal nocturnal dyspnea, No edema, No no complaints, No other Gastrointestinal: constipation, decreased appetite, nausea, pain, passing stool , No blood, No diarrhea, No flatus, No no complaints, No other, No vomiting Genitourinary: No bleeding, No discharge, No dysuria, No flank pain, No hematuria, No no complaints, No other Musculoskeletal: back pain, bone/joint pain, neck pain, restricted range of motion, No no complaints, No other, No swelling Skin: bruising, pruritis, rash Neurologic: dizziness, headache, No confusion, No focal-weakness, No no complaints, No other, No seizure, No syncope Endocrine: no complaints Lymphatic: other (lymphoma.) Psychological: no complaints Immunologic: no complaints Past Medical History Medical History: angina, congestive heart failure, coronary artery disease, deep vein thrombosis, diabetes, GERD, hypertension, urinary tract infection Past Surgical History Past Surgical Hx: no surgical history, angioplasty Social History Alcohol Use: none Smoking Status: Never smoker Drug Use: none Exam/Review of Systems Vital Signs Vitals Vital Signs Date Time Temp Pulse Resp B/P Pulse Ox O2 Delivery O2 Flow Rate FiO2 06/16/17 08:09 84 06/16/17 07:51 98.9 17 130/64 97 06/15/17 23:50 21 Intake and Output 06/15/17 06/15/17 06/16/17 15:00 23:00 07:00 Intake Total 1050 ml 650 ml Balance 1050 ml 650 ml Results Result Diagram: 06/12/17 0649 06/12/17 0648 Medications Medications Current Medications Ondansetron HCl (Zofran Inj) 4 mg Q6H PRN IV NAUSEA AND/OR VOMITING Last administered on 06/14/17 08:15; Admin Dose 4 MG; Start 06/11/17 at 05:00 Acetaminophen (Tylenol Tab) 650 mg Q6H PRN PO PAIN LEVEL 1-3 OR FEVER; Start at 05:00 Docusate Sodium (Colace) 100 mg Q12H PRN PO CONSTIPATION; Start 06/11/17 at 05: 00 Bisacodyl (Dulcolax) 5 mg DAILY PRN PO CONSTIPATION; Start 06/11/17 at 05:00 Pantoprazole (Protonix Iv) 40 mg DAILY@06 IV Last administered on 06/16/17 05: 13; Admin Dose 40 MG; Start 06/11/17 at 06:00 Enoxaparin Sodium (Lovenox) 40 mg DAILY SC Last administered on 06/15/17 08:51 ; Admin Dose 40 MG; Start 06/11/17 at 09:00 Acetaminophen (Tylenol Tab) 500 mg Q8 PRN PO pain and temp. more then 99F; Start 06/11/17 at 05:00 Aspirin (Aspirin) 81 mg DAILY PO Last administered on 06/15/17 08:47; Admin Dose 81 MG; Start 06/11/17 at 09:00 Ergocalciferol (Drisdol) 50,000 unit Q7D@09 PO Last administered on 06/13/17 11 :46; Admin Dose 50,000 UNIT; Start 06/13/17 at 09:00 Ferrous Sulfate (Ferrous Sulfate (Ec)) 325 mg DAILY PO Last administered on 06/15 08:47; Admin Dose 325 MG; Start 06/11/17 at 09:00 Folic Acid (Folic Acid) 1 mg DAILY PO Last administered on 06/15/17 08:47; Admin Dose 1 MG; Start 06/11/17 at 09:00 Hydrochlorothiazide (Hydrochlorothiazide) 25 mg DAILY PO Last administered on 11:45; Admin Dose 25 MG; Start 06/11/17 at 09:00 Clopidogrel Bisulfate (plaVIX) 75 mg DAILY PO Last administered on 06/15/17 08: 47; Admin Dose 75 MG; Start 06/11/17 at 18:08 Metoprolol Tartrate (Lopressor) 25 mg BID PO Last administered on 06/15/17 22: 09; Admin Dose 25 MG; Start 06/14/17 at 21:00 Losartan Potassium 50 mg 50 mg DAILY PO ; Start 06/16/17 at 09:00 Sodium Chloride (NS) 1,000 ml @ 75 mls/hr [id number] IV Last administered on 23:49; Admin Dose 75 MLS/HR; Start 06/15/17 at 23:55; Stop 06/16/17 at 16:00 FIFI ABARCA MD Jun 16, 2017 08:34
[2017-06-16] MEDS ORDERED: LOSARTAN 50 MG TAB PO SCH (09:00)
[2017-06-16] MEDS: ENOXAPARIN 40 MG/0.4 ML SYG SC SCH (09:07)
--- NOTE | 2017-06-16 09:07 | PN ---
Date/Time of Note Date/Time of Note DATE: 06/16/17 TIME: 09:02 Assessment/Plan VTE Prophylaxis VTE Prophylaxis Intervention: ambulation Lines/Catheters IV [facility] Urinary Cath still in place: No Assessment/Plan Assessment/Plan Assessment: New-onset dysphagia/rule out GERD/motility disorder/neoplasm/stricture Modified Barium swallow no evidenced of aspiration during swallowing Hodgkin's lymphoma under treatment treatment has been held for the last 3 months, Coronary artery disease/CHF/decompensated Diabetes mellitus type 2 Hypertension History of DVT History of irritable bowel syndrome Chronic anemia/multifactorial Plan: Continue cardiac management Consider endoscopy pending review of above studies case discussed with DR Sheldon Further orders will depend on clinical course Subjective 24 Hr Interval Summary Free Text/Dictation * Course reviewed with RN * patient seen and examined * Modified barium swallow no aspirations during swallowing * Speech therapy recommendations regular diet * scheduled for stress test today Exam/Review of Systems Vital Signs Vitals Vital Signs Date Time Temp Pulse Resp B/P Pulse Ox O2 Delivery O2 Flow Rate FiO2 06/16/17 08:09 84 06/16/17 07:51 98.9 17 130/64 97 06/15/17 23:50 21 Intake and Output 06/15/17 06/15/17 06/16/17 15:00 23:00 07:00 Intake Total 1050 ml 650 ml Balance 1050 ml 650 ml Exam Constitutional: alert, frail Head: atraumatic, normocephalic Eyes: nl sclera ENMT: mucosa pink and moist Neck: non-tender, supple Respiratory: clear to auscultation, normal air movement Cardiovascular: nl pulses, regular rate and rhythm Gastrointestinal: non-tender, soft Musculoskeletal: nl extremities to inspection, nl gait and stance 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: nl speech, nl strength Skin: nl turgor, No rash or lesions Results Result Diagram: 06/12/17 0649 06/12/17 0648 Medications Medications Current Medications Ondansetron HCl (Zofran Inj) 4 mg Q6H PRN IV NAUSEA AND/OR VOMITING Last administered on 06/14/17 08:15; Admin Dose 4 MG; Start 06/11/17 at 05:00 Acetaminophen (Tylenol Tab) 650 mg Q6H PRN PO PAIN LEVEL 1-3 OR FEVER; Start at 05:00 Docusate Sodium (Colace) 100 mg Q12H PRN PO CONSTIPATION; Start 06/11/17 at 05: 00 Bisacodyl (Dulcolax) 5 mg DAILY PRN PO CONSTIPATION; Start 06/11/17 at 05:00 Pantoprazole (Protonix Iv) 40 mg DAILY@06 IV Last administered on 06/16/17 05: 13; Admin Dose 40 MG; Start 06/11/17 at 06:00 Enoxaparin Sodium (Lovenox) 40 mg DAILY SC Last administered on 06/15/17 08:51 ; Admin Dose 40 MG; Start 06/11/17 at 09:00 Acetaminophen (Tylenol Tab) 500 mg Q8 PRN PO pain and temp. more then 99F; Start 06/11/17 at 05:00 Aspirin (Aspirin) 81 mg DAILY PO Last administered on 06/15/17 08:47; Admin Dose 81 MG; Start 06/11/17 at 09:00 Ergocalciferol (Drisdol) 50,000 unit Q7D@09 PO Last administered on 06/13/17 11 :46; Admin Dose 50,000 UNIT; Start 06/13/17 at 09:00 Ferrous Sulfate (Ferrous Sulfate (Ec)) 325 mg DAILY PO Last administered on 06/15 08:47; Admin Dose 325 MG; Start 06/11/17 at 09:00 Folic Acid (Folic Acid) 1 mg DAILY PO Last administered on 06/15/17 08:47; Admin Dose 1 MG; Start 06/11/17 at 09:00 Hydrochlorothiazide (Hydrochlorothiazide) 25 mg DAILY PO Last administered on 11:45; Admin Dose 25 MG; Start 06/11/17 at 09:00 Clopidogrel Bisulfate (plaVIX) 75 mg DAILY PO Last administered on 06/15/17 08: 47; Admin Dose 75 MG; Start 06/11/17 at 18:08 Metoprolol Tartrate (Lopressor) 25 mg BID PO Last administered on 06/15/17 22: 09; Admin Dose 25 MG; Start 06/14/17 at 21:00 Losartan Potassium 50 mg 50 mg DAILY PO ; Start 06/16/17 at 09:00 Sodium Chloride (NS) 1,000 ml @ 75 mls/hr [id number] IV Last administered on 23:49; Admin Dose 75 MLS/HR; Start 06/15/17 at 23:55; Stop 06/16/17 at 16:00 UMESH SOLIZ NP Jun 16, 2017 09:07
[2017-06-16] MEDS: CLOPIDOGREL 75 MG TAB PO SCH (10:03)
[2017-06-16] MEDS: ASPIRIN 81 MG TAB PO SCH (10:03)
[2017-06-16] MEDS: FOLIC ACID 1 MG TAB PO SCH (10:04)
[2017-06-16] MEDS: FERROUS SULFATE (EC) 325 MG TAB PO SCH (10:04)
[2017-06-16] MEDS: HYDROCHLOROTHIAZIDE 25 MG TAB PO SCH (10:04)
[2017-06-16] MEDS: METOPROLOL 25 MG TAB PO SCH (10:05)
--- NOTE | 2017-06-16 13:21 | DS ---
Date/Time of Note Date/Time of Note DATE: 06/16/17 TIME: 13:18 Discharge Summary Admission/Discharge Info Admit Date/Time Jun 11, 2017 at 02:35 Discharge Date/Time Jun 16, 2017 at 12:20 Discharge Diagnosis 1. Severe respiratory distress improved. 2.IHD angina, HX of recent (2 weeks ago) PTCA with one sent and 3 balloon dilatation of narrow coronary arteries(; according to the daughter).Troponin0.034; Why her LVEF dropped- not clear yet. 3. Dysphagia to solids and sometimes to liquids. Continue w/u. 4. Pulmonary edema by x-ray with wheezing on admission, improved after lasix. 5. History of Hodgkin lymphoma- s/p chemotherapy and hydration 3-4 days ago. 6. Osteoarthritis with pain syndrome 7. Anxiety disorder. 8. Depression with grief reaction-s/p loss of . 9. Urinary incontinence. 10. Osteoporosis. 11. Kyphosis. 12. Postmenopausal syndrome. 13. Anemia with nl iron. 14. Brain atrophy on CT. 15. Left sphenoid sinusitis on CT. 16. Left ventricular hypertrophy. 17. Urinary incontinence. 18.Cerebrovascular accident, with left facial drooling, left facial weakness, with slurred speech and dysphagia. Mild left upper extremity weakness.mostly corrected. 19. Hypertension, now normotensive.Cardiomegaly on cxr 20.Medication noncompliance. now refuses studies> Asked about the essence of leaving a hospital AMA. Hx of Present Illness acute shortness of breath, cough for the last 2 days. She had similar symptoms previously. She was intubated about 2 months ago due to acute respiratory failure at [facility], had a cardiac study (angiography) with ballon dilatations and stent placed 2 weeks ago at another hospital. She denies fever , chills, syncope, near syncope.Positive for neck pain, chest pain, chest pain with exertion left more than right side with difficulty to inspire, vomiting or diaphoresis. She denies abdominal pain, vomiting, dysuria, diarrhea. She does not smoke nor drink. Hospital Course ENT consulted for dysphagia. Pt reports that she has intermittent sensation of difficulty swallowing. She points to her mid-sternum as to the area where food seems to get stuck. Voice stable. Denies odynophagia. MBSS performed yesterday without signs of aspiration.Will cont. outpatient. Home Meds Active Scripts Hydrocodone/Acetaminophen ([place] 5-325 Tablet) 1 Each Tablet, 1 TAB PO Q6H Y for SEVERE PAIN LEVEL 7-10, #20 TAB Prov:GOLDIE CHRISTOPHER NP 02/27/17 [Ipratropium 0.02% (Neb)] 0.5 MG/2.5 ML NEBU No Conflict Check, 0.5 MG HHN Q8H RESP THERAPY for 30 Days, #90 CAP.SR.12H Prov:PRINCESS KRUSE MD 01/29/17 Furosemide (Lasix) 20 Mg Tab, 20 MG PO BID DIURETICS for 30 Days, #60 TAB Prov:PRINCESS KRUSE MD 01/29/17 Albuterol Sulfate* (Albuterol Sulfate* Neb) 0.083%-3 Ml Neb, 2.5 MG HHN Q8H RESP THERAPY for 90 Days, #90 CAP 2 Refills Prov:PRINCESS KRUSE MD 01/29/17 Acetaminophen* (Tylenol*) 500 Mg Tab, 500 MG PO Q8 Y for pain and temp. more then 99F for 30 Days, #90 TAB Prov:PRINCESS KRUSE MD 01/29/17 Reported Medications Lorazepam* (Lorazepam*) 1 Mg Tablet, 1 MG PO Q6 Y for ANXIETY, #60 TAB 06/11/17 Atorvastatin* (Atorvastatin*) 80 Mg Tablet, 80 MG PO QHS, #30 TAB 06/11/17 Pantoprazole* (Pantoprazole*) 40 Mg Tablet.dr, 40 MG PO DAILY, TAB 06/11/17 Carvedilol* (Carvedilol*) 6.25 Mg Tablet, 6.25 MG PO BID, #60 TAB 06/11/17 Spironolactone* (Aldactone*) 5 Mg/Ml (COMPOUNDED) Susp, 12.5 MG PO DAILY for 30 Days, ML (COMPOUNDED) 06/11/17 Clopidogrel Bisulfate (Clopidogrel) 75 Mg Tablet, 75 MG PO DAILY, #30 TAB 06/11/17 Ferrous Sulfate* (Ferrous Sulfate*) 325 Mg Tabec, 325 MG PO DAILY, TAB 08/04/16 Metoprolol Tartrate* (Lopressor*) 50 Mg Tab, 50 MG PO BID, #60 TAB 08/04/16 Folic Acid* (Folic Acid*) 1 Mg Tablet, 1 MG PO DAILY, TAB 08/04/16 Ergocalciferol* (Drisdol* (Vitamin D2)) 50,000 Unit Capsule, 69385 UNIT PO Q7D, CAP 08/04/16 Losartan-Hydrochlorothiazide (Losartan-HCTZ) 100-25 Mg Tab, 1 TAB PO DAILY, TAB 08/04/16 Aspirin* (Aspirin* Chew) 81 Mg Tab.chew, 81 MG PO DAILY, TAB.CHEW 08/04/16 Follow-up Plan in 4 days. x 7 days. Primary Care Provider Princess Kruse MD Time spent on discharge: > 30 minutes PRINCESS KRUSE MD Jun 16, 2017 13:21
--- NOTE | 2017-06-16 15:59 | CONS ---
Date/Time of Note Date/Time of Note DATE: 06/16/17 TIME: 10:58 VK LE Assessment/Plan Assessment/Plan Chief Complaint/Hosp Course Hodgkin lymphoma- PROGRESSIVE s/p chemotherapy 1 MO AGO PLAN TO CHANGE CHEMO PROTOCOL SOON PT IS STABILIZED/DC Mild respiratory distress with improving of wheezing. Sleept well. IHD angina, HX of recent (2 weeks ago) PTCA with one sent and 3 balloon dilatation of narrow coronary arteries(; according to the daughter).Troponin0.034 Dysphagia to solids and sometimes to liquids. Pulmonary edema by x-ray with wheezing on admission, improved after lasix. Osteoarthritis with pain syndrome Anxiety disorder. Depression with grief reaction-s/p loss of . Urinary incontinence. Osteoporosis. Kyphosis. Postmenopausal syndrome. Anemia with nl iron. Brain atrophy on CT. Left sphenoid sinusitis on CT. Left ventricular hypertrophy. Urinary incontinence. Cerebrovascular accident, with left facial drooling, left facial weakness, with slurred speech and dysphagia. Mild left upper extremity weakness.mostly corrected. Hypertension, now normotensive.Cardiomegaly on cxr Cervico-brachial syndrome Medication noncompliance. Elevated D.Dimer OK TO DC F-UP OUTPT Problems: Consultation Date/Type/Reason Admit Date/Time Jun 11, 2017 at 02:35 Initial Consult Date 06/11/17 [facility] Referring Provider: PEDRO KRUSE MD 24 HR Interval Summary Free Text/Dictation ALL NOTED Exam/Review of Systems Vital Signs Vitals Vital Signs Date Time Temp Pulse Resp B/P Pulse Ox O2 Delivery O2 Flow Rate FiO2 06/16/17 12:24 98.7 80 17 109/53 98 06/15/17 23:50 21 Intake and Output 06/15/17 06/15/17 06/16/17 15:00 23:00 07:00 Intake Total 1050 ml 650 ml Balance 1050 ml 650 ml Exam Constitutional: alert, distress, frail, oriented, well developed, No non-verbal, No other Psych: anxiety, depression, No confusion, No nl mood/affect, No no complaints, No other, No suicidal Head: atraumatic, normocephalic Eyes: EOMI, PERRL, nl lids, No fundi, disc, No icteric, No nl conjunctiva, No nl sclera, No other ENMT: nl lips & teeth, No intubated, No mucosa pink and moist, No nl external ears & nose, No nl nasal mucosa & septum, No other, No tympanic membranes Neck: bruits, jvd, nuchal rigidity, thyromegaly, No masses, No non-tender, No other, No supple Respiratory: congested cough, labored breathing, wheezing, No clear to auscultation, No crackles/rales, No diminished breath sounds, No intercostal retraction, No normal air movement, No other, No respirations, No tactile fremitus Cardiovascular: bruits, jugular venous distention (JVD), systolic murmur, No S3, No S4, No diastolic murmur, No edema, No gallop, No irregular rhythm, No murmurs/extra sounds, No nl pulses, No other, No regular rate and rhythm, No rub Gastrointestinal: bowel sounds, distended, nl liver, spleen, soft, No ascites, No firm, No hepatomegaly, No mass, No non-tender, No other, No rebound or guarding, No splenomegaly, No surgical scars, No tender Genitourinary - Female: No CMT, No CVA tenderness, No nl adnexae, No nl external genitalia, No other, No uterus Musculoskeletal: joint tenderness, muscle tone, muscle weakness Extremities: calf tenderness, pitting pedal edema (mild.) 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: [employer]AL II-XII intact, focal weakness, numbness Skin: diaphoresis, No ecchymosis, No laceration, No nl turgor, No other, No puncture, No rash or lesions Lymph: + CERVICAL AND SUPRACLAV lymph nodes, No nontender, No other Results Result Diagram: 06/12/17 0649 06/12/17 0648 KALPANA ANGELES MD Jun 16, 2017 15:59
== END 2017-06-16 12:20 | disposition home or self-care (01) | DRG 292 ==
LOC: E/R 23:14 → MS4 06-11 02:35
PROVIDERS: ADMIT Family Medicine; ATTEND Family Medicine
DX: I11.0 Hypertensive heart disease with heart failure (principal); C81.90 Hodgkin lymphoma, unspecified, unspecified site; E11.9 Type 2 diabetes mellitus without complications; R13.10 Dysphagia, unspecified; D64.9 Anemia, unspecified; F43.21 Adjustment disorder with depressed mood; I25.2 Old myocardial infarction; I50.23 Acute on chronic systolic (congestive) heart failure; Z95.5 Presence of coronary angioplasty implant and graft; I69.992 Facial weakness following unspecified cerebrovascular disease; R32 Unspecified urinary incontinence; Z91.14 Patient's other noncompliance with medication regimen; Z79.82 Long term (current) use of aspirin; Z86.718 Personal history of other venous thrombosis and embolism; I69.991 Dysphagia following unspecified cerebrovascular disease; I69.928 Other speech and language deficits following unspecified cerebrovascular disease
CPT/HCPCS: 36415; 71010; 72050; 74230; 80053; 83036; 83540; 83735; 83880; 84100; 84443; 84484; 85025; 85378; 85610; 85730; 87081; 92611; 93005; 93306; 93970; 94640; 94664; 96374; 97163; J1940; C9113; J1650; J2405; J7030; J7040

== ENCOUNTER 2017-07-27 08:55 | Observation (INO) | payer MEDICARE, OTHER ==
[2017-07-27] VITALS (18 sets, daily range): BP systolic 105–132; BP diastolic 58–96; PULSE 74–103; RESP 11–26; Ht 149.9 cm; Wt 73.8 kg
[~2017-07-27] VITALS: Ht 149.9 cm; Wt 73.8 kg
[~2017-07-27 08:55] MED LIST changes: +ALDS PO; +ATOR80TA75 PO; +CARV6.2579 PO; +CLOP75TA27 PO; +LORA1TAB PO; +PANT40TA4 PO
[2017-07-27] MEDS ORDERED: POTA8CAP PO (09:51)
[2017-07-27] MEDS ORDERED: ISOS30TA5 PO (09:51)
[2017-07-27] MEDS ORDERED: DIGO125T6 PO (09:52)
[2017-07-27] MEDS ORDERED: MEGE40TA PO (09:52)
[2017-07-27] MEDS ORDERED: SPIR25TA PO (09:53)
[2017-07-27 09:54] LABS: HEMOGLOBIN 9.9 g/dl (12.0-16.0); MEAN CORPUSCULAR HEMOGLOBIN 26.7 pg (29.0-33.0); MEAN CORPUSCULAR HGB CONC 30.9 g/dl (32.0-37.0); MEAN CORPUSCULAR VOLUME 86.3 fl (82.0-101.0); MEAN PLATELET VOLUME 9.7 fl (7.4-10.4); PLATELET COUNT 163 10^3/UL (140-415); RED BLOOD COUNT 3.71 10^6/ul (4.20-5.40); RED CELL DISTRIBUTION WIDTH 16.7 % (11.5-14.5); WHITE BLOOD COUNT 4.7 10^3/ul (4.8-10.8)
[2017-07-27 09:56] LABS: HOLD TRANSMISSIONS 1
--- NOTE | 2017-07-27 10:07 | RADRPT ---
PROCEDURE: XR Chest. CLINICAL INDICATION: Preoperative. Chest pain. TECHNIQUE: Single frontal view. COMPARISON: 06/15/2017. FINDINGS: The lungs are clear. The heart is mildly enlarged. There is calcification in the aorta consistent with atherosclerosis. There is no pleural effusion. There is no pneumothorax. IMPRESSION: 1. Clear lungs. 2. Mild cardiomegaly. 3. Atherosclerosis. RPTAT: QQ .Samson Cordova MD, MD Date Time Electronically viewed and signed by .Samson Cordova MD, MD on 07/27/2017 10:06 .R/
[2017-07-27 10:15] LABS: CALCIUM 10.3 mg/dl (8.4-10.2); CHOL/HDL RATIO 6.9 RATIO; CREATININE 0.75 mg/dl (0.44-1.00); POTASSIUM 4.8 mmol/L (3.5-5.1)
[2017-07-27 10:17] LABS: INR 1.02; PROTIME 13.4 Sec (12.2-14.2)
[2017-07-27 10:18] LABS: PARTIAL THROMBOPLASTIN TIME 26.9 Sec (25.0-35.0)
[2017-07-27] MEDS ORDERED: HEPARIN 1000 UNITS/ML 10 ML INJ ONE (10:47)
[2017-07-27] MEDS ORDERED: MIDAZOLAM 1 MG/ML 2 ML INJ ONE (10:47)
[2017-07-27] MEDS ORDERED: FENTAnyl 50 MCG/ML VIAL ONE (10:47)
[2017-07-27] MEDS ORDERED: LIDOCAINE 1% (MDV) 20 ML INJ ONE (10:47)
[2017-07-27] MEDS ORDERED: VERAPAMIL 5 MG INJ ONE (10:48)
[2017-07-27] MEDS ORDERED: NITROGLYCERIN (IC) 100 MCG/ML INJ ONE (10:48)
[2017-07-27] MEDS ORDERED: METHYLPREDNISOLONE 125 MG INJ ONE (10:50)
[2017-07-27] MEDS ORDERED: DIPHENHYDRAMINE 50 MG INJ ONE (10:50)
[2017-07-27] MEDS ORDERED: METHYLPREDNISOLONE 125 MG INJ IV SCH (11:00)
[2017-07-27] MEDS ORDERED: FAMOTIDINE 20 MG INJ IV SCH (11:00)
[2017-07-27] MEDS ORDERED: DIPHENHYDRAMINE 50 MG INJ IV SCH (11:00)
--- NOTE | 2017-07-27 11:15 | RADRPT ---
Vent Rate: 79 bpm RR Interval: 0 msec VT Interval: 154 msec QRS Duration: 82 msec QT Interval: 360 msec QTC Interval: 412 msec P-R-T [place]: 63 - 12 - 71 degrees Sinus rhythm with sinus arrhythmia with occasional premature ventricular complexes Nonspecific T wave abnormality Abnormal ECG Electronically Signed By: Francois Grijalva [id number]
[2017-07-27] MEDS ORDERED: IOHEXOL 350MG/ML 50 ML BTL ONE (12:51)
[2017-07-27] MEDS ORDERED: IODIXANOL LOCM 100 ML BTL ONE ×2 (12:51)
[2017-07-27] MEDS ORDERED: CLOPIDOGREL 300 MG TAB ONE (12:52)
[2017-07-27] MEDS ORDERED: ASPIRIN 325 MG TAB ONE (12:52)
[2017-07-27] MEDS ORDERED: ONDANSETRON 4 MG INJ IV PRN (13:00)
[2017-07-27] MEDS ORDERED: morphine 2 MG INJ IV PRN (13:00)
[2017-07-27] MEDS ORDERED: OXYCODONE/ACETAMINOPHEN (5/325) TAB PO PRN (13:00)
[2017-07-27] MEDS ORDERED: AL HYDROX/MG HYDROX/SIMETH 30 ML CUP PO PRN (13:00)
[2017-07-27] MEDS ORDERED: ACETAMINOPHEN 325 MG TAB PO PRN (13:00)
--- NOTE | 2017-07-27 13:06 | SIPON ---
Date/Time of Note Date/Time of Note DATE: 07/27/17 TIME: 13:04 Operative Report Preoperative Diagnosis 1.abnl mpi 2.chest pain Postoperative Diagnosis 1.Obstructive cad 2.s/p PTCA/stent x 2 to LAD Operation/Procedure Performed 1.LHC 2.PTCA/stent x 2 to LAD Surgeon: ARIEL HOBBS Anesthesia Type: moderate sedation Estimated Blood Loss: minimal Transfusion Required: no Specimen: none Grafts/Implants: none Complications: no ARIEL HOBBS Jul 27, 2017 13:06
[2017-07-27] MEDS: SOD CHLORIDE 0.9% 1,000 ML IV SCH ×2 (13:51→20:25)
--- NOTE | 2017-07-27 21:51 | CARRPT ---
DATE OF PROCEDURE: 07/27/2017 PROCEDURES: 1. Left heart catheterization. 2. Coronary angiography. 3. IFR and FFR in LAD times 2. 4. Percutaneous transluminal coronary angioplasty with placement of Ata drug-eluting stent times 2, 2.5 x 18 mm and 2.5 x 12 mm proximal mid LAD. 5. Moderate conscious sedation. ATTENDING PHYSICIAN: Dr. Johann Alvarez. CONSULT PHYSICIAN: Dr. Princess Whitaker. ANESTHESIA: Conscious with local. INDICATION: Abnormal stress test with chest pain refractory to medical therapy. BRIEF HISTORY: Ms. Gracia is a 71-year-old female with history of hypertension, dyslipidemia, coronary artery disease status post prior PTCA and stent placement who yesterday was having complaints of recurrent substernal chest pain. Patient underwent cardiac stress test revealing positive ischemia in the anterior apical region. Given these findings, patient referred and presents today in order to undergo left heart catheterization to assess possibility of significant obstructive coronary artery disease leading to her symptoms of chest pain and subsequent positive stress test findings. PROCEDURE: After informed consent was obtained the patient was take to the [facility], where her right radial was prepped and draped in the usual sterile fashion. 2 percent lidocaine was instilled right radial area in order to achieve adequate local anesthesia. Using the modified Seldinger technique, the radial artery was cannulated and a 6- [place] Islander arterial sheath was placed. A 6-[place] Islander JL 3.5 catheter was used to cannulate the right coronary artery with contrast injection. Multiple views of left coronary artery system was obtained. JR4 was then used to cannulate right coronary to ostium. Contrast injection was used in the right coronary artery with multiple views obtained. JR4 was removed from guidewire and after measuring the left ventricular end-diastolic pressure and pullback across the aortic valve to assess for significant gradient, which there was not. Subsequently at this time given findings of intermediate lesion in the patient's LAD we moved into a FFR procedure. Patient had already received 5000 units heparin with 2.5 Verapamil and 200 of IV nitroglycerin, the patient was given during radial cocktail. At this time the patient had Q 3 guide used to cannulate the left coronary ostium and 0.014 Battery Technician guidewire passed distal to the lesion in the LAD, and a pressure wire and IFR was performed achieving result of 0.74 markedly positive result. Subsequently at this time we decided to intervene. The wire was left in place and a 2.0 x 12 mm balloon was used to pre-dilate the lesion in the mid LAD and the lesion was stented with a 2.5 x 18 mm drug-eluting stent deployed at 14 atmospheres times 2. Then a 2.75 x 8 mm Emerge balloon to further post dilate the stent up to 16 atmospheres. The balloon was removed. Follow up angiogram was obtained and excellent result with deployment of the stent. Subsequently at this time it was decided to perform IFR. IFR result low at 0.74, it was elected to, once again, further ascertain the vessels and appears the patient had that was proximal subsequently this lesion was directly stented with a 2.5 x 12 mm drug-eluting stent up to 14 atmospheres times 2. The stent delivery system was removed. Follow up angiogram was obtained with excellent result following this stent. MEGHA-3 flow throughout the vessel. No signs of complication including perforation or dissection. So at this time interventional guide and guidewires were removed. The patient's sheath was removed. TR band applied complete procedure with no known complications. FINDINGS: 1. Coronary angiography. Left main small 3 mm, no significant focal stenosis, likely diffuse disease. Circumflex approximately 3 mm vessel and has a long stented zone from proximal mid which is widely patent with in-stent restenosis of approximately 30 percent. There is an obtuse marginal branch midway through the stent, 2 mm vessel with no focal stenosis. The LAD proximally is a 3 mm vessel and takeoff has a very eccentric appearing 80 percent stenosis. In the midportion of the vessel there is noted eccentric appearing 60 percent stenosis. There is a mid branching diagonal which had a stent within and is 100 percent occluded, and fills via left to left collateral flow. The right coronary artery proximally is a 2 mm vessel, has an ostial 30 percent stenosis with good reflux. In the midportion right coronary artery there is a 30 percent stenosis, a dominant vessel with 2 mm PDA and 2 mm posterolateral branch with no significant focal stenosis. 2. Measurement of left end-diastolic pressure 16. No significant aortic stenosis by gradient. 3. Prior to PTCA and stent placement, the patient had a 60 to 70 percent eccentric stenosis, and a positive IFR and proximal this an eccentric appearing 80 percent stenosis. Post PTCA and stent placement in both regions the patient had no evidence of stenosis. MEGHA-3 flow throughout the vessel, with a moderate stepdown distally into the most distal stent and MEGHA-3 flow throughout the vessel with no signs of complication including perforation or infection. TOTAL FLUOROSCOPY TIME: 25 minutes. TOTAL CONTRAST: 270. IMPRESSION: 1. Two-vessel obstructive coronary artery disease involving the left anterior descending (LAD) and its mid branching diagonal with chronic total occlusion. 2. Successful percutaneous transluminal coronary angioplasty (PTCA) and stent placement times 2 to left anterior descending (LAD) for stenosis with positive IFR results. 3. High normal left heart filling pressures. 4. No significant aortic stenosis gradient. RECOMMENDATIONS: In light of procedure findings at this time: 1. Maintain patient on Plavix 75 mg 1 tab by mouth daily for at least 1 year. 2. Continue aspirin 325 mg 1 tab by mouth daily indefinitely. 3. Maximize medical management. 4. Aggressive risk factor reduction. 5. The patient will be admitted to the ICU for post pain left heart catherization with managing symptoms with probable discharge the following day. Dictated By: Johann Alvarez MD /josie/sandra /Document#: [id number] CC: Prnicess Whitaker MD;*End*
--- NOTE | 2017-07-27 22:44 | CONS ---
Date/Time of Note Date/Time of Note DATE: 07/27/17 TIME: 22:43 Assessment/Plan Assessment/Plan Chief Complaint/Hosp Course Hodgkin lymphoma- PROGRESSIVE s/p chemotherapy 1 MO AGO PLAN TO CHANGE CHEMO PROTOCOL TO IMMUNOTHERAPY CAD- POST STENTS HX CHF IHD angina, HX of recent PTCA with one sent and 3 balloon dilatation of narrow coronary arteries(; according to the daughter) Dysphagia to solids and sometimes to liquids. Pulmonary edema by x-ray with wheezing on admission, improved after lasix. Osteoarthritis with pain syndrome Anxiety disorder. Depression with grief reaction-s/p loss of . Urinary incontinence. Osteoporosis. Kyphosis. Postmenopausal syndrome. Anemia with nl iron. Brain atrophy on CT. Left sphenoid sinusitis on CT. Left ventricular hypertrophy. Urinary incontinence. Cerebrovascular accident, with left facial drooling, left facial weakness, with slurred speech and dysphagia. Mild left upper extremity weakness.mostly corrected. Hypertension, now normotensive.Cardiomegaly on cxr Cervico-brachial syndrome Medication noncompliance. Elevated D.Dimer Problems: Consultation Date/Type/Reason Admit Date/Time Jul 27, 2017 at 12:56 Date of Consultation: Jul 27, 2017 Type of Consultation: HEMEON Reason for Consultation HD Referring Provider: PEDRO KRUSE MD Hx of Present Illness 71 YO W F WITH HX HD , PROGRESSING , RELASED, TREATED WITH CHEMO PLAN - TO SWITCH TO IMMUNOTHERAPY ADMITTED FOR PTCA ROS Constitutional: diaphoresis, poor po, requiring O2, No chills, No disoriented, No febrile, No improved, No no complaints, No other, No requiring IVF Eyes: No discharge, No no complaints, No other, No pain, No redness, No visual change ENT: No bleeding, No congestion, No discharge, No dysphagia, No no complaints, No other, No pain, No sore throat Respiratory: cough, pleuritic pain, shortness of breath Cardiovascular: chest pain, lightheadedness, orthopenea, palpitations, paroxysmal nocturnal dyspnea, No edema, No no complaints, No other Gastrointestinal: constipation, decreased appetite, nausea, pain, passing stool , No blood, No diarrhea, No flatus, No no complaints, No other, No vomiting Genitourinary: No bleeding, No discharge, No dysuria, No flank pain, No hematuria, No no complaints, No other Musculoskeletal: back pain, bone/joint pain, neck pain, restricted range of motion, No no complaints, No other, No swelling Skin: bruising, pruritis, rash Neurologic: dizziness, headache, No confusion, No focal-weakness, No no complaints, No other, No seizure, No syncope Endocrine: no complaints Lymphatic: other (lymphoma.) Psychological: no complaints Immunologic: no complaints Initial Consultation Hx Past Medical History Medical History: angina, congestive heart failure, coronary artery disease, deep vein thrombosis, diabetes, GERD, hypertension, urinary tract infection Past Surgical History Past Surgical Hx: no surgical history, angioplasty Social History Alcohol Use: none Smoking Status: Never smoker Drug Use: none Past Surgical History Past Surgical Hx: no surgical history, angioplasty Social History Smoking Status: Never smoker Exam/Review of Systems Vital Signs Vitals Vital Signs Date Time Temp Pulse Resp B/P Pulse Ox O2 Delivery O2 Flow Rate FiO2 07/27/17 20:00 103 07/27/17 16:00 98.6 20 114/70 98 Room Air Exam General: WN/WD/NAD, AOx 3 HEENT: Unicetric/atraumatic/EOMI (follows commands) NECK: JVD elevated, no thyromegaly Lymph: no lymphadenopathy HEART: regular with no S3, II/ systolic murmur at apex LUNGS: Coarse sounds ABD: soft, NT, ND, +BS : Intact Neuro: non focal SKIN: chronic changes EXT: trace edema Results Result Diagram: 07/27/17 0940 07/27/17 0940 Results 24 hrs Laboratory Tests Test 07/27/17 09:40 White Blood Count 4.7 L Red Blood Count 3.71 L Hemoglobin 9.9 L Hematocrit 32.0 L Mean Corpuscular Volume 86.3 Mean Corpuscular Hemoglobin 26.7 L Mean Corpuscular Hemoglobin Concent 30.9 L Red Cell Distribution Width 16.7 H Platelet Count 163 Mean Platelet Volume 9.7 Neutrophils % Lymphocytes % Monocytes % Eosinophils % Basophils % Nucleated Red Blood Cells % 0.0 Neutrophils # Lymphocytes # Monocytes # Eosinophils # Basophils # Nucleated Red Blood Cells # CBC Results Faxed/Phoned 1 *H Prothrombin Time 13.4 Prothrombin Time Ratio 1.0 INR International Normalized Ratio 1.02 Activated Partial Thromboplast Time 26.9 Sodium Level 141 Potassium Level 4.8 Chloride Level 109 Carbon Dioxide Level 25 Anion Gap 12 Blood Urea Nitrogen 17 Creatinine 0.75 Glucose Level 100 Calcium Level 10.3 H Triglycerides Level 190 H Cholesterol Level 181 LDL Cholesterol, Calculated 117 HDL Cholesterol 26 L Cholesterol/HDL Ratio 6.9 Medications Medications Current Medications Aspirin (Ecotrin) 325 mg DAILY PO ; Start 07/28/17 at 09:00 Clopidogrel Bisulfate (plaVIX) 75 mg DAILY PO ; Start 07/28/17 at 09:00 Oxycodone/ Acetaminophen (Percocet (5/ 325)) 1 tab Q4H PRN PO REPORTED NON- CARDIAC PAIN 4-7; Start 07/27/17 at 13:00 Morphine Sulfate (morphine) 1 mg Q1H PRN IV PAIN NOT RELIEVED BY OTHERS; Start 07/27/17 at 13:00 Al Hydrox/Mg Hydrox/Simethicone (Mag-Al Plus) 30 ml Q4H PRN PO GASTROINTESTINAL UPSET; Start 07/27/17 at 13:00 Ondansetron HCl 4 mg 4 mg Q4H PRN IV NAUSEA AND/OR VOMITING; Start 07/27/17 at 13:00 Sodium Chloride (NS) 1,000 ml @ 75 mls/hr [id number] IV Last administered on 07/27t 20:25; Admin Dose 75 MLS/HR; Start 07/27/17 at 12:56; Stop 07/28/17 at 02: 15 KALPANA ANGELES MD Jul 27, 2017 22:43
[2017-07-27] MEDS: ZOLPIDEM 5 MG TAB PO PRN (23:26)
[2017-07-28] VITALS (13 sets, daily range): BP systolic 94–117; BP diastolic 44–83; PULSE 77–101; RESP 17–42
[2017-07-28] MEDS: ZOLPIDEM 5 MG TAB PO PRN (01:02)
[2017-07-28 06:48] LABS: HEMATOCRIT 28.5 % (37.0-47.0); LYMPHOCYTES # 0.7 10^3/ul (0.8-2.9); MEAN CORPUSCULAR HEMOGLOBIN 26.8 pg (29.0-33.0); MEAN CORPUSCULAR HGB CONC 31.6 g/dl (32.0-37.0); MEAN CORPUSCULAR VOLUME 84.8 fl (82.0-101.0); MEAN PLATELET VOLUME 10.5 fl (7.4-10.4); MONOCYTE # 0.4 10^3/ul (0.3-0.9); MONOCYTES % 7.5 % (0.0-11.0); NEUTROPHILS % 78.1 % (39.0-77.0); PLATELET COUNT 149 10^3/UL (140-415); RED BLOOD COUNT 3.36 10^6/ul (4.20-5.40); RED CELL DISTRIBUTION WIDTH 16.6 % (11.5-14.5); WHITE BLOOD COUNT 5.1 10^3/ul (4.8-10.8)
[2017-07-28 07:15] LABS: CALCIUM 9.6 mg/dl (8.4-10.2); CREATININE 0.75 mg/dl (0.44-1.00); POTASSIUM 3.7 mmol/L (3.5-5.1)
[2017-07-28] MEDS ORDERED: CLOPIDOGREL 75 MG TAB PO SCH (09:00)
[2017-07-28] MEDS ORDERED: ASPIRIN (EC) 325 MG TAB PO SCH (09:00)
--- NOTE | 2017-07-28 13:03 | CONS ---
Date/Time of Note Date/Time of Note DATE: 07/28/17 TIME: 12:58 Assessment/Plan Assessment/Plan Additional Assessment/Plan 1. CAD - s/p ESTELLE - on dual anti-platelet therapy. Site looks well. 2. HTN - well controlled, con't med Rx. 3. Dyslipidemi a- on statin, will adjust Rx as needed. 4. Abn ECG - no CP , r/o ME. Stenting done. 5. CHF - diast HF, con't med rx. Consultation Date/Type/Reason Admit Date/Time Jul 27, 2017 at 12:56 Initial Consult Date 24 HR Interval Summary Free Text/Dictation NO acute events - pt post LHC - tolerated procedure well. Will see Dr. Alvarez next week. ROS: No fever, no chills, no nausea, no vomiting, no diarrhea/constipation No recent weight changes No chest pain, no PND, no orthopnea No dizziness, blurred vision No thirst, no heat or cold intolerance Exam/Review of Systems Vital Signs Vitals Vital Signs Date Time Temp Pulse Resp B/P Pulse Ox O2 Delivery O2 Flow Rate FiO2 07/28/17 12:00 97.4 98 23 103/83 98 Room Air Intake and Output 07/27/17 07/27/17 07/28/17 15:00 23:00 07:00 Intake Total 575 ml 475 ml Output Total 1150 ml Balance -575 ml 475 ml Exam General: WN/WD/NAD, AOx 3 HEENT: Unicetric/atraumatic/EOMI (follows commands) NECK: JVD elevated, no thyromegaly Lymph: no lymphadenopathy HEART: regular with no S3, II/ systolic murmur at apex LUNGS: Coarse sounds ABD: soft, NT, ND, +BS : Intact Neuro: non focal SKIN: chronic changes EXT: trace edema Results Result Diagram: 07/28/17 0559 07/28/17 0559 Results 24 hrs Laboratory Tests Test 07/28/17 05:59 White Blood Count 5.1 Red Blood Count 3.36 L Hemoglobin 9.0 L Hematocrit 28.5 L Mean Corpuscular Volume 84.8 Mean Corpuscular Hemoglobin 26.8 L Mean Corpuscular Hemoglobin Concent 31.6 L Red Cell Distribution Width 16.6 H Platelet Count 149 Mean Platelet Volume 10.5 H Neutrophils % 78.1 H Lymphocytes % 14.0 L Monocytes % 7.5 Eosinophils % 0.0 Basophils % 0.0 Nucleated Red Blood Cells % 0.0 Neutrophils # 4.0 Lymphocytes # 0.7 L Monocytes # 0.4 Eosinophils # 0.0 Basophils # 0.0 Nucleated Red Blood Cells # 0.0 Sodium Level 144 Potassium Level 3.7 Chloride Level 113 H Carbon Dioxide Level 21 Anion Gap 14 Blood Urea Nitrogen 18 Creatinine 0.75 Glucose Level 120 Calcium Level 9.6 Medications Medications Current Medications Aspirin (Ecotrin) 325 mg DAILY PO Last administered on 07/28/17 09:08; Admin Dose 325 MG; Start 07/28/17 at 09:00 Clopidogrel Bisulfate (plaVIX) 75 mg DAILY PO Last administered on 07/28/17 09 :08; Admin Dose 75 MG; Start 07/28/17 at 09:00 Oxycodone/ Acetaminophen (Percocet (5/ 325)) 1 tab Q4H PRN PO REPORTED NON- CARDIAC PAIN 4-7; Start 07/27/17 at 13:00 Morphine Sulfate (morphine) 1 mg Q1H PRN IV PAIN NOT RELIEVED BY OTHERS; Start 07/27/17 at 13:00 Al Hydrox/Mg Hydrox/Simethicone (Mag-Al Plus) 30 ml Q4H PRN PO GASTROINTESTINAL UPSET; Start 07/27/17 at 13:00 Ondansetron HCl (Zofran Inj) 4 mg Q4H PRN IV NAUSEA AND/OR VOMITING; Start at 13:00 BEULAH MONTGOMERY MD Jul 28, 2017 13:02
--- NOTE | 2017-07-28 13:11 | PDOCDIS ---
Discharge Instructions CONDITION Patient Condition: Fair HOME CARE INSTRUCTIONS: Diet Instructions: Low Fat /CholesterolSpecial Diet: LOW FAT, LOW CHOLESTORAL ACTIVITY: Activity Restrictions: Slowly Increase Activity FOLLOW UP/APPOINTMENTS Follow-up Plan Jovon Whitaker & Antonio after 1 week JAGRUTI MOSELEY MD Jul 28, 2017 13:11
--- NOTE | 2017-07-28 16:39 | CONS ---
Date/Time of Note Date/Time of Note DATE: 07/28/17 TIME: 10:39 VK LE Assessment/Plan Assessment/Plan Chief Complaint/Hosp Course Hodgkin lymphoma- PROGRESSIVE s/p chemotherapy 1 MO AGO PLAN TO CHANGE CHEMO PROTOCOL TO IMMUNOTHERAPY CAD- POST STENTS HX CHF IHD angina, HX of recent PTCA with one sent and 3 balloon dilatation of narrow coronary arteries(; according to the daughter) Dysphagia to solids and sometimes to liquids. Pulmonary edema by x-ray with wheezing on admission, improved after lasix. Osteoarthritis with pain syndrome Anxiety disorder. Depression with grief reaction-s/p loss of . Urinary incontinence. Osteoporosis. Kyphosis. Postmenopausal syndrome. Anemia with nl iron. Brain atrophy on CT. Left sphenoid sinusitis on CT. Left ventricular hypertrophy. Urinary incontinence. Cerebrovascular accident, with left facial drooling, left facial weakness, with slurred speech and dysphagia. Mild left upper extremity weakness.mostly corrected. Hypertension, now normotensive.Cardiomegaly on cxr Cervico-brachial syndrome Medication noncompliance. Elevated D.Dimer Problems: Consultation Date/Type/Reason Admit Date/Time Jul 27, 2017 at 12:56 Initial Consult Date 24 HR Interval Summary Free Text/Dictation DOING WELL POST PROCEDURE NO NEW EVENTS Exam/Review of Systems Vital Signs Vitals Vital Signs Date Time Temp Pulse Resp B/P Pulse Ox O2 Delivery O2 Flow Rate FiO2 07/28/17 12:00 101 07/28/17 12:00 97.4 23 103/83 98 Room Air Intake and Output 07/27/17 07/27/17 07/28/17 14:59 22:59 06:59 Intake Total 500 ml 550 ml Output Total 1150 ml Balance -650 ml 550 ml Exam General: WN/WD/NAD, AOx 3 HEENT: Unicetric/atraumatic/EOMI (follows commands) NECK: JVD elevated, no thyromegaly Lymph: no lymphadenopathy HEART: regular with no S3, II/ systolic murmur at apex LUNGS: Coarse sounds ABD: soft, NT, ND, +BS : Intact Neuro: non focal SKIN: chronic changes EXT: trace edema Results Result Diagram: 07/28/17 0559 07/28/17 0559 Results 24 hrs Laboratory Tests Test 07/28/17 05:59 White Blood Count 5.1 Red Blood Count 3.36 L Hemoglobin 9.0 L Hematocrit 28.5 L Mean Corpuscular Volume 84.8 Mean Corpuscular Hemoglobin 26.8 L Mean Corpuscular Hemoglobin Concent 31.6 L Red Cell Distribution Width 16.6 H Platelet Count 149 Mean Platelet Volume 10.5 H Neutrophils % 78.1 H Lymphocytes % 14.0 L Monocytes % 7.5 Eosinophils % 0.0 Basophils % 0.0 Nucleated Red Blood Cells % 0.0 Neutrophils # 4.0 Lymphocytes # 0.7 L Monocytes # 0.4 Eosinophils # 0.0 Basophils # 0.0 Nucleated Red Blood Cells # 0.0 Sodium Level 144 Potassium Level 3.7 Chloride Level 113 H Carbon Dioxide Level 21 Anion Gap 14 Blood Urea Nitrogen 18 Creatinine 0.75 Glucose Level 120 Calcium Level 9.6 KALPANA ANGELES MD Jul 28, 2017 16:39
--- NOTE | 2017-07-28 19:07 | HP ---
DATE OF ADMISSION: 07/27/2017 HISTORY OF PRESENT ILLNESS: The patient is a 71-year-old gentleman with history of coronary artery disease with history of PCI in the past, Hodgkin lymphoma status post chemo, osteoarthritis, anxiety disorder, depression, hypertension. The patient was seen by Dr. Alvarez as an outpatient for abnormal stress test and chest pain refractory to medical treatment. The patient was brought into hospital and underwent left heart catheterization and coronary angiogram. The patient underwent [employer] with drug-eluting stent x2 in proximal and mid LAD. The patient post procedure had no chest pain and was admitted for further evaluation and management. The patient denied any fever or chills. No history of leg edema. No history of abdominal pain. No history of nausea, vomiting, diarrhea. No history of headache, dizziness, syncope. No history of orthopnea. The patient has remained awake, alert. No recent fall. No recent fever or chills. REVIEW OF SYSTEMS: The rest of the review of systems are unremarkable. PAST MEDICAL HISTORY: As stated above. OPERATIONS: The patient is status post PCI x2 back in May 2017. FAMILY HISTORY: Noncontributory to the patient's condition. SOCIAL HISTORY: No smoking. No alcohol. PHYSICAL EXAMINATION: GENERAL: Patient conscious, awake, alert. VITAL SIGNS: Upon admission, temperature 97.6, pulse 84, respirations 16, blood pressure 119/58, O2 sat 99% on room air. HEENT: Atraumatic, normocephalic. Conjunctivae are normal. Oropharynx clear. NECK: Supple. No mass or thyromegaly. LUNGS: Chest is clear. No use of accessory muscles. CARDIAC: The heart is normal. No murmur, gallop, or rub. ABDOMEN: Soft, nondistended, nontender. Bowel sounds present. EXTREMITIES: No leg edema. NEURO: Patient is awake, alert, with no gross focal deficit. SKIN: Without acute rash or ulcer. LYMPHATIC: Negative in neck and axilla. LABS: On the day of admission, WBC 4.7, hemoglobin 9.9, platelet 163, sodium 141, potassium 4.8, BUN 17, creatinine 0.7, glucose 100, calcium 10.3. LDL 117. IMPRESSION AND PLAN: 1. Coronary artery disease with recent percutaneous coronary intervention in May and had an abnormal nuclear stress test. He was admitted for elective [employer] and underwent PCI with drug-eluting stent to proximal mid LAD. 2. Hypertension. The patient will be resumed with antihypertensive medication as before. The patient at home was taking Cozaar and metoprolol. 3. Hodgkin lymphoma. The patient will follow up with Dr. Candy Lakhani. 4. Patient will also be continued on aspirin and Plavix. For dyslipidemia, the patient has been taking Lipitor 80 mg once a day, which will be continued upon discharge. Meanwhile, patient will be continued on IV fluid to prevent contrast-induced nephropathy. We will do followup labs. Dictated By: Lawrence Ferguson MD /[email or web address]/[email or web address] /Document#: [id number]
--- NOTE | 2017-07-28 20:16 | RADRPT ---
Vent Rate: 81 bpm RR Interval: 0 msec IA Interval: 156 msec QRS Duration: 84 msec QT Interval: 372 msec QTC Interval: 432 msec P-R-T [place]: 64 - -30 - 62 degrees Normal sinus rhythm Left axis deviation Abnormal ECG Electronically Signed By: Francois Grijalva [id number]
--- NOTE | 2017-07-28 20:18 | RADRPT ---
Vent Rate: 93 bpm RR Interval: 0 msec [place] Interval: 166 msec QRS Duration: 84 msec QT Interval: 372 msec QTC Interval: 462 msec P-R-T [place]: 60 - 34 - 78 degrees Normal sinus rhythm Nonspecific T wave abnormality Abnormal ECG Electronically Signed By: Francois Grijalva [id number]
--- NOTE | 2017-07-29 09:49 | DS ---
DATE OF ADMISSION: 07/27/2017 DATE OF DISCHARGE: 07/28/2017 FINAL DIAGNOSES: 1. Coronary disease status post-percutaneous coronary intervention in the past and was admitted for cardiac cath and underwent percutaneous coronary intervention with placement of drug-eluting stent x2 in proximal and mid left anterior descending. 2. Hypertension. 3. Dyslipidemia. 4. Depression. 5. Osteoarthritis. 6. History of Hodgkin lymphoma status post-chemotherapy. 7. History of cerebrovascular accident in the past. 8. History of medication noncompliance. DISCHARGE MEDICATIONS: Patient was instructed to take home medication as before including aspirin, Plavix, Hyzaar, Imdur, digoxin, Lopressor. The patient's home medication also listed as Lasix, Aldactone, Megace, vitamin D and folic acid. I instructed her to take the medication to her PMD, Dr. Whitaker, for further clarification. DISCHARGE CONDITION: Stable. DIET: Diet 2 g sodium, cardiac diet. ACTIVITY: As tolerated. REASON FOR ADMISSION: Patient is a 71-year-old female with history of coronary disease in the past, status post PCI, hypertension, dyslipidemia, osteoarthritis and depression, who was seen by Dr. 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 The patient did not have any dizziness, syncope. No history abdominal pain. No history of bleeding mass site. On the on the day of discharge, patient is breathing comfortably. The patient was ambulating in the room without any chest pain, no shortness of breath. EXAMINATION: VITAL SIGNS: Today reveal temperature 97.4, pulse 98, respiration 101, blood pressure 103/83, respirations 20, and O2 saturation 98 percent on room air. HEENT: No eye discharge or redness. Extraocular movements intact. Oropharynx clear. NECK: No mass. CHEST: Chest fairly clear. CARDIAC: Normal. No murmur, gallop, or rub. ABDOMEN: Soft, nontender. Bowel sounds present. EXTREMITIES: No leg edema. NEURO: The patient is awake, alert, fairly oriented, with no gross focal deficits. LABORATORY: Done this morning. WBC 5.1, hemoglobin 9 with drop from 9.9, although the patient also received IV normal saline after TRAINING SPECIALIST the patient's baseline hemoglobin is between 9 and 10. Sodium 144, potassium 3.7, BUN 18, creatinine 0.7, glucose 120. Lipid panel revealed LDL of 117. The patient is already on Lipitor 80, mg once a day. DISCHARGE DISPOSITION: Discharge planning also discussed with Dr. Magnus Major, who saw her today from cardiac standpoint. Dictated By: Lawrence Ferguson MD /josie/[email or web address] /Document#: [id number]
== END 2017-07-28 13:30 | disposition home or self-care (01) ==
LOC: SDS 08:55 → ICU 12:56
PROVIDERS: ADMIT Internal Medicine; ATTEND Internal Medicine
DX: I25.10 Atherosclerotic heart disease of native coronary artery without angina pectoris (principal); I11.0 Hypertensive heart disease with heart failure; I50.30 Unspecified diastolic (congestive) heart failure; E78.5 Hyperlipidemia, unspecified; M19.90 Unspecified osteoarthritis, unspecified site; F32.9 Major depressive disorder, single episode, unspecified; Z86.73 Personal history of transient ischemic attack (TIA), and cerebral infarction without residual deficits; Z92.21 Personal history of antineoplastic chemotherapy; Z85.72 Personal history of non-Hodgkin lymphomas; Z91.14 Patient's other noncompliance with medication regimen; Z79.82 Long term (current) use of aspirin; Z79.02 Long term (current) use of antithrombotics/antiplatelets
CPT/HCPCS: 71010; 80048; 80061; 85025; 85610; 85730; 93005; 93458; 96374; C1887; C9600; G0378; J1200; J1644; J2250; J2930; J3010; Q9967

== ENCOUNTER 2018-02-07 07:23 | Inpatient (IN) | END 2018-02-10 11:17 | disposition home or self-care (01) | DRG 871 ==

== ENCOUNTER 2018-03-19 22:08 | Emergency (ER) | END 2018-03-20 04:24 | disposition home or self-care (01) ==

== ENCOUNTER 2018-09-09 15:46 | Inpatient (IN) | END 2018-09-16 18:35 | disposition home or self-care (01) | DRG 853 ==

== ENCOUNTER 2019-01-11 09:31 | Inpatient (IN) | payer MEDICARE, OTHER ==
[~2019-01-11] VITALS: Ht 152.4 cm; Wt 70.0 kg
[~2019-01-11 09:31] MED LIST changes: -ALDS PO; +ASPI-903 PO; -ASPI81TA3 PO; -ATOR80TA75 PO; -CARV6.2579 PO; +DEXL60CA2 PO; +DIGO125T93 PO; +FENO200 PO; -FER325 PO; +FURO40TA4 PO; -HYDR-906 PO; +IPRA3AMP29 HHN; +ISOS30TA67 PO; -Ipratropium 0.02% (Neb) HHN; -LAS20 PO; +LEVO100T8 PO; -LORA1TAB PO; -LOSA1TAB20 PO; +LOSA1TAB25 PO; +MEGE40TA PO; -PANT40TA4 PO; +PEMB100V IV; +POTA8CAP PO; +SPIR25TA PO
[2019-01-11] MEDS ORDERED: ASPIRIN 81 MG TAB PO STA (09:50)
[2019-01-11] MEDS ORDERED: FUROSEMIDE 40 MG INJ IV ONE ×2 (10:00→15:00)
[2019-01-11] MEDS ORDERED: ONDANSETRON 4 MG INJ IV PRN (11:30)
[2019-01-11] MEDS ORDERED: ACETAMINOPHEN 325 MG TAB PO PRN (11:30)
--- NOTE | 2019-01-11 11:42 | ERD ---
ER Documentation Chief Complaint Chief Complaint pt bib son with c/o weakness, pt is on Chemo, HPI 73-year-old female who is undergoing chemotherapy for lymphoma under the care of Dr. Salomon with a prior history of CHF and EF of 20% who presents the emergency room with several weeks of generalized weakness. Over the last severa l days worsening shortness of breath and lower extremity edema. No chest pain, no pleuritic pain, no fevers chills or cough. Patient has generalized decline and weakness and unable to care for herself at home. ROS All systems reviewed and are negative except as per history of present illness. Medications Home Meds Active Scripts Ipratropium-Albuterol (Ipratropium-Albuterol) 0.5-3 Mg/3 Ml Ampul.neb, 3 ML HHN Q4H RESP THERAPY PRN for SHORTNESS OF BREATH for 30 Days, #90 Prov:PEDRO KRUSE MD 09/16/18 Pembrolizumab (Keytruda) 100 Mg/4 Ml Vial, 100 MG IV DAILY for 21 Days, #8 VIAL Prov:PEDRO KRUSE MD 09/16/18 Albuterol Sulfate* (Albuterol Sulfate* Neb) 0.083%-3 Ml Neb, 2.5 MG HHN Q8H RESP THERAPY for 90 Days, #90 CAP 2 Refills Prov:PEDRO KRUSE MD 09/16/18 Dexlansoprazole (Dexilant) 60 Mg Cap., 60 MG PO DAILY, #30 CAP Prov:PEDRO KRUSE MD 09/16/18 Fenofibrate* (Fenofibrate*) 200 Mg Cap, 200 MG PO DAILY for 30 Days, #30 CAP Prov:PEDRO KRUSE MD 09/16/18 Levothyroxine Sodium* (Levothyroxine Sodium*) 100 Mcg Tablet, 100 MCG PO BEFORE BREAKFAST, #30 TAB Prov:PEDRO KRUSE MD 09/16/18 Furosemide* (Furosemide*) 40 Mg Tablet, 40 MG PO DAILY for 30 Days, #30 TAB Prov:PEDRO KRUSE MD 09/16/18 Spironolactone* (Aldactone*) 25 Mg Tablet, 25 MG PO DAILY, #30 TAB Prov:PEDRO KRUSE MD 09/16/18 Megestrol Acetate* (Megace*) 40 Mg Tab, 40 MG PO BID for 60 Days, #30 TAB Prov:PEDRO KRUSE MD 09/16/18 Digoxin* (Lanoxin*) 0.125 Mg Tablet, 0.125 MG PO DAILY for 30 Days, #30 TAB Prov:PEDRO KRUSE MD 09/16/18 Potassium Chloride* (Potassium Chloride*) 8 Meq Capsule.er, 8 MEQ PO DAILY for 30 Days, #30 CAP Prov:PEDRO KRUSE MD 09/16/18 Isosorbide Mononitrate* (Isosorbide Mononitrate*) 30 Mg Tab.er.24h, 30 MG PO DAILY for 30 Days, #30 TAB Prov:PEDRO KRUSE MD 09/16/18 Clopidogrel Bisulfate (Clopidogrel) 75 Mg Tablet, 75 MG PO DAILY, #30 TAB Prov:PEDRO KRUSE MD 09/16/18 Acetaminophen* (Tylenol*) 500 Mg Tab, 500 MG PO Q8 PRN for pain and temp. more then 99F for 30 Days, #90 TAB Prov:PEDRO KRUSE MD 09/16/18 Metoprolol Tartrate* (Lopressor*) 50 Mg Tab, 50 MG PO BID, #60 TAB Prov:PEDRO KRUSE MD 09/16/18 Folic Acid* (Folic Acid*) 1 Mg Tablet, 1 MG PO DAILY for 30 Days, #30 TAB Prov:PEDRO KRUSE MD 09/16/18 Losartan-Hydrochlorothiazide (Losartan-HCTZ) 100-25 Mg Tab, 1 TAB PO DAILY for 30 Days, #30 TAB Prov:PEDRO KRUSE MD 09/16/18 Aspirin* (Aspirin* Chew) 81 Mg Tab.chew, 81 MG PO DAILY for 30 Days, #30 T AB.CHEW Prov:PEDRO KRUSE MD 09/16/18 Reported Medications Ergocalciferol* (Drisdol* (Vitamin D2)) 50,000 Unit Capsule, 20419 UNIT PO Q7D for 30 Days, #4 CAP 08/04/16 Allergies Allergies: Coded Allergies: vancomycin (Verified Allergy, Mild, REDNESS AND ITCHING, 03/20/18) PMhx/Soc History of Surgery: Yes Anesthesia Reaction: No Hx 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 Disorder: No Hx Respiratory Disorders: Yes Hx Cardiac Disorders: Yes (HTN, HYPERLIPIDEMIA) Hx Psychiatric Problems: No Hx Miscellaneous Medical Probl: Yes (LYMPHOMA CA) Hx Alcohol Use: No Hx Substance Use: No Hx Tobacco Use: No Smoking Status: Never smoker FmHx Family History: No diabetes Physical Exam Vitals Vital Signs Date Temp Pulse Resp B/P (MAP) Pulse Ox O2 O2 Flow FiO2 Time Delivery Rate 01/11/19 Nasal 2 10:22 Cannula 01/11/19 100 20 126/100 100 Nasal 2.0 10:10 (109) Cannula 01/11/19 97.8 105 24 134/90 99 09:33 (105) Physical Exam General: Well developed, well nourished, no acute distress Head: Normocephalic, atraumatic. Eyes: Pupils equally reactive, EOM intact ENT: Moist mucous membranes Neck: Supple, no lymphadenopathy Respiratory: Rales at the bases bilaterally, no distress Cardiovascular: RRR, no murmurs, rubs, or gallops Abdominal: Soft, non-tender, non-distended, no peritoneal signs : Deferred MSK: Mild bilateral lower extremity pitting edema, no unilateral swelling, 5/5 strength Neurologic: Alert and oriented, moving all extremities, normal speech, no focal weakness, no cerebellar signs Skin: No rash Psych: Normal mood Result Diagram: 01/11/19 1008 01/11/19 1008 Results 24 hrs Laboratory Tests Test 01/11/19 10:08 White Blood Count 6.3 10^3/ul Red Blood Count 3.74 10^6/ul Hemoglobin 10.8 g/dl Hematocrit 35.4 % Mean Corpuscular Volume 94.7 fl Mean Corpuscular Hemoglobin 28.9 pg Mean Corpuscular Hemoglobin Concent 30.5 g/dl Red Cell Distribution Width 17.5 % Platelet Count 136 10^3/UL Mean Platelet Volume 13.3 fl Immature Granulocytes % 0.200 % Neutrophils % 66.7 % Lymphocytes % 22.3 % Monocytes % 10.3 % Eosinophils % 0.3 % Basophils % 0.2 % Nucleated Red Blood Cells % 0.0 /100WBC Immature Granulocytes # 0.010 10^3/ul Neutrophils # 4.2 10^3/ul Lymphocytes # 1.4 10^3/ul Monocytes # 0.7 10^3/ul Eosinophils # 0.0 10^3/ul Basophils # 0.0 10^3/ul Nucleated Red Blood Cells # 0.0 10^3/ul Prothrombin Time 13.9 Sec Prothrombin Time Ratio 1.1 INR International Normalized Ratio 1.06 Activated Partial Thromboplast Time 26.4 Sec Sodium Level 143 mmol/L Potassium Level 4.1 mmol/L Chloride Level 109 mmol/L Carbon Dioxide Level 19 mmol/L Anion Gap 15 Blood Urea Nitrogen 15 mg/dl Creatinine 0.74 mg/dl Est Glomerular Filtrat Rate mL/min mL/min Glucose Level 114 mg/dl Calcium Level 9.6 mg/dl Total Bilirubin 0.2 mg/dl Direct Bilirubin 0.00 mg/dl Indirect Bilirubin 0.2 mg/dl Aspartate Amino Transf (AST/SGOT) 33 IU/L Alanine Aminotransferase (ALT/SGPT) 44 IU/L Alkaline Phosphatase 66 IU/L Troponin I 0.012 ng/ml B-Type Natriuretic Peptide 88413 PG/ML Total Protein 7.6 g/dl Albumin 4.3 g/dl Globulin 3.30 g/dl Albumin/Globulin Ratio 1.30 Current Medications Medications Dose Sig/Rafa Start Time Status Last (Trade) Ordered Route PRN Stop Time Admin Dose Reason Admin Aspirin 162 mg ONCE STAT 01/11/19 DC 01/11/19 (Aspirin) PO 09:50 01/11/19 10:10 09:51 Furosemide 40 mg ONCE ONCE 01/11/19 DC 01/11/19 (Lasix) IV 10:00 01/11/19 10:11 10:01 Ondansetron 4 mg ER BRIDGE 01/11/19 HCl (Zofran PRN IV 11:30 01/12/19 Inj) NAUSEA/VOMITI 11:29 NG 650 mg ER BRIDGE 01/11/19 Acetaminophen PRN PO 11:30 01/12/19 (Tylenol .MILD PAIN 11:29 Tab) 1-3 OR TEMP Procedures/MDM EKG, MONITORS, & DIAGNOSTIC IMAGING: EKG: I reviewed and interpreted a 12-lead EKG. Rhythm: Normal sinus rhythm ST Changes: No contiguous ST segment elevations T waves: No contiguous T wave inversions Impression: [No evidence of acute cardiac ischemia] Chest x-ray: I reviewed and interpreted a 1 view of the chest Mediastinum: No enlargement Cardiac silhouette: cardiomegaly Airspace: Interstitial process consistent with pulmonary edema Bones: No evidence of fracture LAB INTERPRETATION: I reviewed the laboratory testing and it shows elevated BNP MEDICAL DECISION MAKING: Patient's presentation is consistent with likely gradual decline given end-stage malignancy. Family has not had a conversation regarding palliation. This would be reasonable given the patient's age and reported advanced age cancer. Patient also has an ejection fraction of 20% has signs and symptoms consistent with volume overload. Patient will benefit from gentle diuresis. ER COURSE: * Aspirin and Lasix provided. No indication for nitro drip or positive pressure ventilation * Laboratory testing is reassuring. Primary hematology oncologist notified of the patient's labs and imaging CONSULTATION: Hematology oncology: Dr. Salomon DISPOSITION PLAN: Accepting care team and consultations: I discussed the current laboratory data, diagnostic imaging and emergency care provided. Admitting team: Dr. Kruse Admitting team indication: Insurance directed Departure Diagnosis: Primary Impression: Acute weakness Additional Impressions: Lymphoma Lymphoma type: unspecified type Lymphoma site: unspecified region Qualified Codes: C85.90 - Non-Hodgkin lymphoma, unspecified, unspecified site Acute exacerbation of CHF (congestive heart failure) Heart failure type: systolic Qualified Codes: I50.23 - Acute on chronic systolic (congestive) heart failure Condition: Stable TIM WHITTAKER MD Jan 11, 2019 11:42
[2019-01-11 12:30] VITALS: BP 128/85; PULSE 67; RESP 16
[2019-01-11 12:50] VITALS: Ht 152.4 cm; Wt 70.0 kg
[2019-01-11 13:00] VITALS: PULSE 86
--- NOTE | 2019-01-11 14:58 | HP ---
Date/Time of Note Date/Time of Note DATE: 01/11/19 TIME: 14:47 Assessment/Plan VTE Prophylaxis SCD applied (from Nsg): Yes Pharmacological prophylaxis: LMWH Lines/Catheters IV Catheter Type (from Nrsg): Saline Lock Assessment/Plan Assessment/Plan 1. Severe respiratory distress with worsening of wheezing and inability to sleep. 2.IHD angina, HX of recent PTCA with one sent and 3 balloon dilatation of narrow coronary arteries(; according to the daughter).Troponin0.034 3. Dysphagia to solids and sometimes to liquids. 4. Pulmonary edema by x-ray with wheezing on admission, improved after lasix. 5. History of Hodgkin lymphoma- s/p chemotherapy and hydration 3-4 days ago. 6. Osteoarthritis with pain syndrome 7. Anxiety disorder. 8. Depression with grief reaction-s/p loss of . 9. Urinary incontinence. 10. Osteoporosis. 11. Kyphosis. 12. Postmenopausal syndrome. 13. Anemia with nl iron. 14. Brain atrophy on CT. 15. Left sphenoid sinusitis on CT. 16. Left ventricular hypertrophy. 17. Urinary incontinence. 18.Cerebrovascular accident, with left facial drooling, left facial weakness, with slurred speech and dysphagia. Mild left upper extremity weakness.mostly corrected. 19. Hypertension, now normotensive.Cardiomegaly on cxr 20.Unknown type of procedure in C/S last month or two. 21.Medication noncompliance. Result Diagram: 01/11/19 1008 01/11/19 1008 Results 24hrs Laboratory Tests Test 01/11/19 10:08 01/11/19 10:15 White Blood Count 6.3 Red Blood Count 3.74 L Hemoglobin 10.8 L Hematocrit 35.4 L Mean Corpuscular Volume 94.7 Mean Corpuscular Hemoglobin 28.9 L Mean Corpuscular Hemoglobin Concent 30.5 L Red Cell Distribution Width 17.5 H Platelet Count 136 #L Mean Platelet Volume 13.3 H Immature Granulocytes % 0.200 Neutrophils % 66.7 Lymphocytes % 22.3 Monocytes % 10.3 Eosinophils % 0.3 Basophils % 0.2 Nucleated Red Blood Cells % 0.0 Immature Granulocytes # 0.010 Neutrophils # 4.2 Lymphocytes # 1.4 Monocytes # 0.7 Eosinophils # 0.0 Basophils # 0.0 Nucleated Red Blood Cells # 0.0 Prothrombin Time 13.9 Prothrombin Time Ratio 1.1 INR International Normalized Ratio 1.06 Activated Partial Thromboplast Time 26.4 Sodium Level 143 Potassium Level 4.1 Chloride Level 109 Carbon Dioxide Level 19 L Anion Gap 15 H Blood Urea Nitrogen 15 Creatinine 0.74 Est Glomerular Filtrat Rate mL/min Glucose Level 114 Calcium Level 9.6 Total Bilirubin 0.2 Direct Bilirubin 0.00 Indirect Bilirubin 0.2 Aspartate Amino Transf (AST/SGOT) 33 Alanine Aminotransferase (ALT/SGPT) 44 Alkaline Phosphatase 66 Troponin I 0.012 B-Type Natriuretic Peptide 78023 H Total Protein 7.6 Albumin 4.3 Globulin 3.30 H Albumin/Globulin Ratio 1.30 Iron Level 71 Total Iron Binding Capacity 357 Percent Iron Saturation 20 L Digoxin Level < 0.4 L HPI/ROS Admit Date/Time Admit Date/Time Jan 11, 2019 at 11:12 Hx of Present Illness Patient c/o acute shortness of breath, cough for the last 2 days. She had similar symptoms previously. She has history of intubation due to acute respiratory failure at [facility], had a cardiac study (angiography) with ballon dilatations and stent placed at another hospital. She denies fever, chills, syncope, near syncope.She also c/o neck pain, chest pain, chest pain with exertion left more than right side with difficulty to inspire,vomiting or diaphoresis. She denies abdominal pain, vomiting, dysuria, diarrhea. She does not smoke nor drink. ROS Constitutional: no complaints, diaphoresis, fatigue, nausea; No improved, No chills, No disoriented, No febrile, No poor po, No weight change, No other ENT: no complaints, congestion, dysphagia; No bleeding, No pain, No discharge, No sore throat, No other Respiratory: no complaints, shortness of breath; No pain, No cough, No pleuritic pain, No sputum, No wheezing, No other Cardiovascular: no complaints, orthopenea, other ((Exertional dyspnea)); No chest pain, No edema, No lightheadedness, No palpitations, No paroxysmal nocturnal dyspnea Gastrointestinal: no complaints, decreased appetite, other ((Dysphagia, anorexia)); No pain, No blood, No constipation, No diarrhea, No flatus, No nausea, No passing stool, No vomiting Genitourinary: no complaints, dysuria; No bleeding, No discharge, No flank pain, No hematuria, No other Musculoskeletal: no complaints, back pain, bone/joint pain, neck pain; No restricted range of motion, No swelling, No other Skin: no complaints, erythema, pruritis, rash; No bruising, No laceration, No skin lesions, No other Neurologic: no complaints, dizziness, headache; No confusion, No focal-weakness, No syncope, No seizure, No other Endocrine: no complaints, dry skin; No polyuria, No polydypsia, No temp intolerance, No weight change, No other Lymphatic: no complaints, tender nodes; No adenopathy, No lymphadema, No other Psychological: no complaints, anxiety, depression; No nl mood/affect, No confusion, No suicidal, No other Immunologic: no complaints; No immunodeficiency, No pruritis, No rhinitis, No urticaria, No other PMH/Family/Social Past Medical History Medical History: angina, congestive heart failure, coronary artery disease, deep vein thrombosis, diabetes, GERD, hypertension, urinary tract infection Medications Current Medications Furosemide (Lasix) 40 mg ONCE ONCE IV ; Start 01/11/19 at 15:00; Stop 01/11/19 at 15:01 Furosemide (Lasix) 40 mg BID DIURETICS PO ; Start 01/11/19 at 21:00 Potassium Chloride (Klor-Con 20) 20 meq BID PO ; Start 01/11/19 at 21:00 Levothyroxine Sodium (Synthroid) 100 mcg DAILY@06 PO ; Start 01/12/19 at 06:00 Pantoprazole (Protonix Tab) 40 mg DAILY@06 PO ; Start 01/12/19 at 06:00 Aspirin (Halfprin) 81 mg DAILY PO ; Start 01/12/19 at 09:00 Spironolactone (Aldactone) 25 mg BID DIURETICS PO ; Start 01/11/19 at 18:00 Metoprolol Tartrate (Lopressor) 50 mg BID PO ; Start 01/11/19 at 21:00 Clopidogrel Bisulfate (plaVIX) 75 mg DAILY PO ; Start 01/12/19 at 09:00 Albuterol/ Ipratropium (Duoneb) 3 ml Q8H RESP THERAPY HHN ; Start 01/11/19 at 16:00 Coded Allergies: vancomycin (Verified Allergy, Mild, REDNESS AND ITCHING, 03/20/18) Past Surgical History Past Surgical Hx: angioplasty Family History Significant Family History: asthma, COPD, diabetes, hypertension, vascular disease Social History Smoking Status: Never smoker Drug Use: none Exam/Review of Systems Vital Signs Vitals Vital Signs Date Temp Pulse Resp B/P (MAP) Pulse Ox O2 O2 Flow FiO2 Time Delivery Rate 01/11/19 86 13:00 01/11/19 Nasal 3.0 12:54 Cannula 01/11/19 97.8 16 128/85 96 12:30 (99) Exam Constitutional: alert, distress, frail; No oriented, No well developed, No non-verbal, No other Psych: no complaints, anxiety, depression; No nl mood/affect, No confusion, No suicidal, No other Head: normocephalic, atraumatic; No lacerations, No hematomas, No other Eyes: EOMI, nl lids, PERRL; No nl conjunctiva, No nl sclera, No icteric, No fundi, disc, No other ENMT: nl lips & teeth; No nl external ears & nose, No nl nasal mucosa & septum, No mucosa pink and moist, No intubated, No tympanic membranes, No other Neck: jvd, bruits, nuchal rigidity; No supple, No non-tender, No masses, No thyromegaly, No other Respiratory: congested cough, labored breathing, wheezing; No clear to auscultation, No normal air movement, No crackles/rales, No diminished breath sounds, No intercostal retraction, No respirations, No tactile fremitus, No other Cardiovascular: jugular venous distention (JVD), systolic murmur; No regular rate and rhythm, No nl pulses, No bruits, No diastolic murmur, No edema, No gallop, No irregular rhythm, No murmurs/extra sounds, No rub, No S3, No S4, No other Gastrointestinal: soft, nl liver, spleen, non-tender, bowel sounds, distended; No ascites, No firm, No hepatomegaly, No mass, No rebound or guarding, No splenomegaly, No surgical scars, No tender, No other Genitourinary - Female: nl adnexae, nl external genitalia; No CMT, No CVA tenderness, No uterus, No other Musculoskeletal: nl extremities to inspection, nl gait and stance, joint tenderness, muscle tone, muscle weakness; No range of motion, No spine non-tender, No swelling, No other Extremities: normal pulses, calf tenderness, pitting pedal edema (Mild); No cyanosis, No clubbing, No edema, No palpable cord, No tenderness, No other 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
[2019-01-11 15:35] VITALS: BP 115/85; PULSE 103; RESP 19
[2019-01-11] MEDS: ALBUTEROL/IPRATROPIUM (NEB) 3 ML AMP HHN SCH (15:41)
[2019-01-11 16:32] VITALS: PULSE 71
[2019-01-11] MEDS ORDERED: LORAZEPAM 2 MG INJ IV PRN (17:30)
[2019-01-11] MEDS: SPIRONOLACTONE 25 MG TAB PO SCH (17:54)
--- NOTE | 2019-01-11 18:45 | CONS ---
Consultation Date/Type/Reason Admit Date/Time Jan 11, 2019 at 11:12 Date/Time of Note DATE: 01/11/19 TIME: 18:45 Past Medical History Medical History: angina, congestive heart failure, coronary artery disease, trace p vein thrombosis, diabetes, GERD, hypertension, urinary tract infection Home Meds Active Scripts Ipratropium-Albuterol (Ipratropium-Albuterol) 0.5-3 Mg/3 Ml Ampul.neb, 3 ML HHN Q4H RESP THERAPY PRN for SHORTNESS OF BREATH for 30 Days, #90 Prov:PEDRO KRUSE MD 09/16/18 Pembrolizumab (Keytruda) 100 Mg/4 Ml Vial, 100 MG IV DAILY for 21 Days, #8 VIAL Prov:PEDRO KRUSE MD 09/16/18 Albuterol Sulfate* (Albuterol Sulfate* Neb) 0.083%-3 Ml Neb, 2.5 MG HHN Q8H RESP THERAPY for 90 Days, #90 CAP 2 Refills Prov:PEDRO KRUSE MD 09/16/18 Dexlansoprazole (Dexilant) 60 Mg Cap., 60 MG PO DAILY, #30 CAP Prov:PEDRO KRUSE MD 09/16/18 Fenofibrate* (Fenofibrate*) 200 Mg Cap, 200 MG PO DAILY for 30 Days, #30 CAP Prov:PEDRO KRUSE MD 09/16/18 Levothyroxine Sodium* (Levothyroxine Sodium*) 100 Mcg Tablet, 100 MCG PO BEFORE BREAKFAST, #30 TAB Prov:PEDRO KRUSE MD 09/16/18 Furosemide* (Furosemide*) 40 Mg Tablet, 40 MG PO DAILY for 30 Days, #30 TAB Prov:PEDRO KRUSE MD 09/16/18 Spironolactone* (Aldactone*) 25 Mg Tablet, 25 MG PO DAILY, #30 TAB Prov:PEDRO KRUSE MD 09/16/18 Megestrol Acetate* (Megace*) 40 Mg Tab, 40 MG PO BID for 60 Days, #30 TAB Prov:PEDRO KRUSE MD 09/16/18 Digoxin* (Lanoxin*) 0.125 Mg Tablet, 0.125 MG PO DAILY for 30 Days, #30 TAB Prov:PEDRO KRUSE MD 09/16/18 Potassium Chloride* (Potassium Chloride*) 8 Meq Capsule.er, 8 MEQ PO DAILY for 30 Days, #30 CAP Prov:PEDRO KRUSE MD 09/16/18 Isosorbide Mononitrate* (Isosorbide Mononitrate*) 30 Mg Tab.er.24h, 30 MG PO DAILY for 30 Days, #30 TAB Prov:PEDRO KRUSE MD 09/16/18 Clopidogrel Bisulfate (Clopidogrel) 75 Mg Tablet, 75 MG PO DAILY, #30 TAB Prov:PEDRO KRUSE MD 09/16/18 Acetaminophen* (Tylenol*) 500 Mg Tab, 500 MG PO Q8 PRN for pain and temp. more then 99F for 30 Days, #90 TAB Prov:PEDRO KRUSE MD 09/16/18 Metoprolol Tartrate* (Lopressor*) 50 Mg Tab, 50 MG PO BID, #60 TAB Prov:PEDRO KRUSE MD 09/16/18 Folic Acid* (Folic Acid*) 1 Mg Tablet, 1 MG PO DAILY for 30 Days, #30 TAB Prov:PEDRO KRUSE MD 09/16/18 Losartan-Hydrochlorothiazide (Losartan-HCTZ) 100-25 Mg Tab, 1 TAB PO DAILY for 30 Days, #30 TAB Prov:PEDRO KRUSE MD 09/16/18 Aspirin* (Aspirin* Chew) 81 Mg Tab.chew, 81 MG PO DAILY for 30 Days, #30 TAB.CHEW Prov:PEDRO KRUSE MD 09/16/18 Reported Medications Ergocalciferol* (Drisdol* (Vitamin D2)) 50,000 Unit Capsule, 21579 UNIT PO Q7D for 30 Days, #4 CAP 08/04/16 Medications Current Medications Furosemide (Lasix) 40 mg BID DIURETICS PO ; Start 01/11/19 at 21:00 Potassium Chloride (Klor-Con 20) 20 meq BID PO ; Start 01/11/19 at 21:00 Levothyroxine Sodium (Synthroid) 100 mcg DAILY@06 PO ; Start 01/12/19 at 06:00 Pantoprazole (Protonix Tab) 40 mg DAILY@06 PO ; Start 01/12/19 at 06:00 Aspirin (Halfprin) 81 mg DAILY PO ; Start 01/12/19 at 09:00 Spironolactone (Aldactone) 25 mg BID DIURETICS PO Last administered on 01/11/19at 17:54; Admin Dose 25 MG; Start 01/11/19 at 18:00 Metoprolol Tartrate (Lopressor) 50 mg BID PO ; Start 01/11/19 at 21:00 Clopidogrel Bisulfate (plaVIX) 75 mg DAILY PO ; Start 01/12/19 at 09:00 Albuterol/ Ipratropium (Duoneb) 3 ml Q8H RESP THERAPY HHN Last administered on 01/11/19at 15:41; Admin Dose 3 ML; Start 01/11/19 at 16:00 Lorazepam (Ativan) 0.5 mg Q6H PRN IV ANXIETY; Start 01/11/19 at 17:30 Allergies: Coded Allergies: vancomycin (Verified Allergy, Mild, REDNESS AND ITCHING, 03/20/18) Past Surgical History Past Surgical Hx: angioplasty Social History Smoking Status: Never smoker Drug Use: none Exam/Review of Systems Exam Vitals Vital Signs Date Temp Pulse Resp B/P (MAP) Pulse Ox O2 O2 Flow FiO2 Time Delivery Rate 01/11/19 71 16:32 01/11/19 22 99 21 15:46 01/11/19 97.7 115/85 15:35 (95) 01/11/19 Nasal 3.0 12:54 Cannula Results Result Diagram: 01/11/19 1008 01/11/19 1008 Results 24hrs Laboratory Tests Test 01/11/19 10:08 01/11/19 10:15 01/11/19 13:41 01/11/19 16:08 White Blood Count 6.3 Red Blood Count 3.74 L Hemoglobin 10.8 L Hematocrit 35.4 L Mean Corpuscular 94.7 Volume Mean Corpuscular 28.9 L Hemoglobin Mean Corpuscular 30.5 L Hemoglobin Concent Red Cell 17.5 H Distribution Width Platelet Count 136 #L Mean Platelet 13.3 H Volume Immature 0.200 Granulocytes % Neutrophils % 66.7 Lymphocytes % 22.3 Monocytes % 10.3 Eosinophils % 0.3 Basophils % 0.2 Nucleated Red 0.0 Blood Cells % Immature 0.010 Granulocytes # Neutrophils # 4.2 Lymphocytes # 1.4 Monocytes # 0.7 Eosinophils # 0.0 Basophils # 0.0 Nucleated Red 0.0 Blood Cells # Prothrombin Time 13.9 Prothrombin Time 1.1 Ratio INR International 1.06 Normalized Ratio Activated 26.[address] Time Sodium Level 143 Potassium Level 4.1 Chloride Level 109 Carbon Dioxide 19 L Level Anion Gap 15 H Blood Urea 15 Nitrogen Creatinine 0.74 Est Glomerular Filtrat Rate mL/min Glucose Level 114 Calcium Level 9.6 Total Bilirubin 0.2 Direct Bilirubin 0.00 Indirect Bilirubin 0.2 Aspartate Amino 33 Transf (AST/SGOT) Alanine 44 Aminotransferase ( ALT/SGPT) Alkaline 66 Phosphatase Troponin I 0.012 0.014 B-Type Natriuretic 13588 H Peptide Total Protein 7.6 Albumin 4.3 Globulin 3.30 H Albumin/Globulin 1.30 Ratio Iron Level 71 Total Iron Binding 357 Capacity Percent Iron 20 L Saturation Digoxin Level < 0.4 L Blood Gas Specimen Blood arterial Source Arterial Blood 01/11/2019 3:49:47 Date Drawn PM Arterial Blood pH 7.557 *H (Temp corrected) Arterial Blood 22.0 L pCO2 (Temp correct) Arterial Blood pO2 110.3 H (Temp corrected) Arterial Blood 19.1 L HCO3 Arterial Blood -1.2 Base Excess Arterial Blood 98.1 Oxygen Saturation Pako Test ACCEPTAB Arterial Blood Gas Left Radial Puncture Site Arterial 0.3 Blood Carboxyhemog lobin Arterial Blood 0.2 Methemoglobin Blood Gas A-a O2 13.1 Differential Oxyhemoglobin 97.6 Percent Blood Gas 37.0 Temperature Blood Gas Modality ROOM AIR FiO2 21.0 Blood Gas Critical SU CERVANTES Value Read Back Blood Gas Notified BR Whom Blood Gas Notified 01/11/2019 3:57:23 Time PM Magnesium Level 2.3 Creatine Kinase 39 Creatine Kinase 1.3 Index Creatinine Kinase 0.51 MB (Mass) Thyroid 41.800 H Stimulating Hormone (TSH) Medications Medication Current Medications Furosemide (Lasix) 40 mg BID DIURETICS PO ; Start 01/11/19 at 21:00 Potassium Chloride (Klor-Con 20) 20 meq BID PO ; Start 01/11/19 at 21:00 Levothyroxine Sodium (Synthroid) 100 mcg DAILY@06 PO ; Start 01/12/19 at 06:00 Pantoprazole (Protonix Tab) 40 mg DAILY@06 PO ; Start 01/12/19 at 06:00 Aspirin (Halfprin) 81 mg DAILY PO ; Start 01/12/19 at 09:00 Spironolactone (Aldactone) 25 mg BID DIURETICS PO Last administered on 01/11/19at 17:54; Admin Dose 25 MG; Start 01/11/19 at 18:00 Metoprolol Tartrate (Lopressor) 50 mg BID PO ; Start 01/11/19 at 21:00 Clopidogrel Bisulfate (plaVIX) 75 mg DAILY PO ; Start 01/12/19 at 09:00 Albuterol/ Ipratropium (Duoneb) 3 ml Q8H RESP THERAPY HHN Last administered on 01/11/19at 15:41; Admin Dose 3 ML; Start 01/11/19 at 16:00 Lorazepam (Ativan) 0.5 mg Q6H PRN IV ANXIETY; Start 01/11/19 at 17:30 KALPANA ANGELES MD Jan 11, 2019 18:45
[2019-01-11 20:00] VITALS: PULSE 87
[2019-01-11 20:30] VITALS: BP 127/71; PULSE 88; RESP 19
--- NOTE | 2019-01-11 21:11 | HP ---
Date/Time of Note Date/Time of Note DATE: 01/11/19 TIME: 21:09 Assessment/Plan VTE Prophylaxis SCD applied (from Nsg): Yes Pharmacological prophylaxis: LMWH Lines/Catheters IV Catheter Type (from Nrsg): [place] [employer] line still needed: No Urinary Cath still in place: No Reason Cath still needed: urinary retention Assessment/Plan Assessment/Plan 1. Severe respiratory distress improving. 2.IHD angina, Low LVEF dropped. 3. Dysphagia to solids and sometimes to liquids. Continue w/u. 4. Pulmonary edema by x-ray with wheezing on admission, improved after lasix. 5. History of Hodgkin lymphoma- s/p chemotherapy and hydration 3-4 days ago. 6. Osteoarthritis with pain syndrome 7. Anxiety disorder. 8. Depression with grief reaction-s/p loss of . 9. Urinary incontinence. 10. Osteoporosis. 11. Kyphosis. 12. Postmenopausal syndrome. 13. Anemia with nl iron. 14. Brain atrophy on CT. 15. Left sphenoid sinusitis on CT. 16. Left ventricular hypertrophy. 17. Urinary incontinence. 18.Cerebrovascular accident, with left facial drooling, left facial weakness, with slurred speech and dysphagia. Mild left upper extremity weakness.mostly corrected. 19. Hypertension, now normotensive.Cardiomegaly on cxr 20. HX of PTCA with one sent and 3 balloon dilatation of narrow coronary arteries(; according to the daughter)Medication noncompliance. now refuses studies> Hx of Present Illness acute shortness of breath, cough for the last 2 days. She had similar symptoms previously. She was intubated about 2 months ago due to acute respiratory failure at [facility], had a cardiac study (angiography) with balloon dilatations and stent placed 2 weeks ago at another hospital. She denies fever, chills, syncope, near syncope.Positive for neck pain, chest pain, chest pain with exertion left more than right side with difficulty to inspire,vomiting or diaphoresis. She denies abdominal pain, vomiting, dysuria, diarrhea. She does not smoke nor drink. Result Diagram: 01/11/19 1008 01/11/19 1008 Results 24hrs Laboratory Tests Test 01/11/19 10:08 01/11/19 10:15 01/11/19 13:41 01/11/19 16:08 White Blood Count 6.3 Red Blood Count 3.74 L Hemoglobin 10.8 L Hematocrit 35.4 L Mean Corpuscular 94.7 Volume Mean Corpuscular 28.9 L Hemoglobin Mean Corpuscular 30.5 L Hemoglobin Concent Red Cell 17.5 H Distribution Width Platelet Count 136 #L Mean Platelet 13.3 H Volume Immature 0.200 Granulocytes % Neutrophils % 66.7 Lymphocytes % 22.3 Monocytes % 10.3 Eosinophils % 0.3 Basophils % 0.2 Nucleated Red 0.0 Blood Cells % Immature 0.010 Granulocytes # Neutrophils # 4.2 Lymphocytes # 1.4 Monocytes # 0.7 Eosinophils # 0.0 Basophils # 0.0 Nucleated Red 0.0 Blood Cells # Prothrombin Time 13.9 Prothrombin Time 1.1 Ratio INR International 1.06 Normalized Ratio Activated 26.[address] Time Sodium Level 143 Potassium Level 4.1 Chloride Level 109 Carbon Dioxide 19 L Level Anion Gap 15 H Blood Urea 15 Nitrogen Creatinine 0.74 Est Glomerular Filtrat Rate mL/min Glucose Level 114 Calcium Level 9.6 Total Bilirubin 0.2 Direct Bilirubin 0.00 Indirect Bilirubin 0.2 Aspartate Amino 33 Transf (AST/SGOT) Alanine 44 Aminotransferase ( ALT/SGPT) Alkaline 66 Phosphatase Troponin I 0.012 0.014 B-Type Natriuretic 67837 H Peptide Total Protein 7.6 Albumin 4.3 Globulin 3.30 H Albumin/Globulin 1.30 Ratio Iron Level 71 Total Iron Binding 357 Capacity Percent Iron 20 L Saturation Digoxin Level < 0.4 L Blood Gas Specimen Blood arterial Source Arterial Blood 01/11/2019 3:49:47 Date Drawn PM Arterial Blood pH 7.557 *H (Temp corrected) Arterial Blood 22.0 L pCO2 (Temp correct) Arterial Blood pO2 110.3 H (Temp corrected) Arterial Blood 19.1 L HCO3 Arterial Blood -1.2 Base Excess Arterial Blood 98.1 Oxygen Saturation Pako Test ACCEPTAB Arterial Blood Gas Left Radial Puncture Site Arterial 0.3 Blood Carboxyhemog lobin Arterial Blood 0.2 Methemoglobin Blood Gas A-a O2 13.1 Differential Oxyhemoglobin 97.6 Percent Blood Gas 37.0 Temperature Blood Gas Modality ROOM AIR FiO2 21.0 Blood Gas Critical SU CERVANTES Value Read Back Blood Gas Notified BR Whom Blood Gas Notified 01/11/2019 3:57:23 Time PM Magnesium Level 2.3 Creatine Kinase 39 Creatine Kinase 1.3 Index Creatinine Kinase 0.51 MB (Mass) Thyroid 41.800 H Stimulating Hormone (TSH) HPI/ROS Admit Date/Time Admit Date/Time Jan 11, 2019 at 11:12 Hx of Present Illness Patient c/o acute shortness of breath, cough for the last 2 days. She had similar symptoms previously. She has history of intubation due to acute respiratory failure at [facility], had a cardiac study (angiography) with ballon dilatations and stent placed at another hospital. She denies fever, chills, syncope, near syncope.She also c/o neck pain, chest pain, chest pain with exertion left more than right side with difficulty to inspire,vomiting or diaphoresis. She denies abdominal pain, vomiting, dysuria, diarrhea. She does not smoke nor drink. ROS Subjective hx not possible: pt critical status (Mild improvement of her condition comparing to yesterday.) Constitutional: improved, fatigue, nausea, poor po, weight change; No no complaints, No chills, No diaphoresis, No disoriented, No febrile, No other Eyes: redness; No no complaints, No pain, No discharge, No visual change, No other ENT: congestion; No no complaints, No bleeding, No pain, No discharge, No dysphagia, No sore throat, No other Respiratory: cough, pleuritic pain, shortness of breath; No no complaints, No pain, No sputum, No wheezing, No other Cardiovascular: chest pain, lightheadedness, orthopenea; No no complaints, No edema, No palpitations, No paroxysmal nocturnal dyspnea, No other Gastrointestinal: constipation, decreased appetite, passing stool; No no complaints, No pain, No blood, No diarrhea, No flatus, No nausea, No vomiting, No other Genitourinary: dysuria, discharge, flank pain; No no complaints, No bleeding, No hematuria, No other Skin: pruritis; No no complaints, No bruising, No erythema, No laceration, No rash, No skin lesions, No other Neurologic: confusion, dizziness, headache; No no complaints, No focal-weakness, No syncope, No seizure, No other Endocrine: polyuria, dry skin; No no complaints, No polydypsia, No temp intolerance, No weight change, No o ther Lymphatic: tender nodes; No no complaints, No adenopathy, No lymphadema, No other Psychological: anxiety, depression; No no complaints, No nl mood/affect, No confusion, No suicidal, No other PMH/Family/Social Past Medical History Medical History: angina, congestive heart failure, coronary artery disease, deep vein thrombosis, diabetes, GERD, hypertension, urinary tract infection Medications Current Medications Furosemide (Lasix) 40 mg BID DIURETICS PO ; Start 01/11/19 at 21:00 Potassium Chloride (Klor-Con 20) 20 meq BID PO ; Start 01/11/19 at 21:00 Levothyroxine Sodium (Synthroid) 100 mcg DAILY@06 PO ; Start 01/12/19 at 06:00 Pantoprazole (Protonix Tab) 40 mg DAILY@06 PO ; Start 01/12/19 at 06:00 Aspirin (Halfprin) 81 mg DAILY PO ; Start 01/12/19 at 09:00 Spironolactone (Aldactone) 25 mg BID DIURETICS PO Last administered on 01/11/19at 17:54; Admin Dose 25 MG; Start 01/11/19 at 18:00 Metoprolol Tartrate (Lopressor) 50 mg BID PO ; Start 01/11/19 at 21:00 Clopidogrel Bisulfate (plaVIX) 75 mg DAILY PO ; Start 01/12/19 at 09:00 Albuterol/ Ipratropium (Duoneb) 3 ml Q8H RESP THERAPY HHN Last administered on 01/11/19at 15:41; Admin Dose 3 ML; Start 01/11/19 at 16:00 Lorazepam (Ativan) 0.5 mg Q6H PRN IV ANXIETY; Start 01/11/19 at 17:30 Coded Allergies: vancomycin (Verified Allergy, Mild, REDNESS AND ITCHING, 03/20/18) Past Surgical History Past Surgical Hx: angioplasty Family History Significant Family History: asthma, COPD, diabetes, hypertension, vascular disease Social History Alcohol Use: none Smoking Status: Never smoker Drug Use: none Exam/Review of Systems Vital Signs Vitals Vital Signs Date Temp Pulse Resp B/P (MAP) Pulse Ox O2 O2 Flow FiO2 Time Delivery Rate 01/11/19 98.1 88 19 127/71 97 20:30 (89) 01/11/19 21 15:46 01/11/19 Nasal 3.0 12:54 Cannula PEDRO KRUSE MD Jan 11, 2019 21:11
[2019-01-11] MEDS: FUROSEMIDE 40 MG TAB PO SCH (21:19)
[2019-01-11] MEDS: POTASSIUM CHLORIDE (SR) 20 MEQ TAB PO SCH (21:19)
[2019-01-11] MEDS: METOPROLOL 50 MG TAB PO SCH (21:20)
[2019-01-12] VITALS (10 sets, daily range): BP systolic 99–126; BP diastolic 53–76; PULSE 86–105; RESP 17–20
[2019-01-12] MEDS: PANTOPRAZOLE (EC) 40 MG TAB PO SCH (05:38)
[2019-01-12] MEDS: SPIRONOLACTONE 25 MG TAB PO SCH ×2 (05:38→17:29)
[2019-01-12] MEDS: FUROSEMIDE 40 MG TAB PO SCH (05:38)
[2019-01-12] MEDS: LEVOTHYROXINE 112 MCG TAB PO SCH (05:38)
[2019-01-12] MEDS ORDERED: LEVOTHYROXINE 100 MCG TAB PO SCH (06:00)
[2019-01-12] MEDS: ALBUTEROL/IPRATROPIUM (NEB) 3 ML AMP HHN SCH ×4 (08:00→23:08)
[2019-01-12] MEDS: CLOPIDOGREL 75 MG TAB PO SCH (08:52)
[2019-01-12] MEDS: ASPIRIN (EC) 81 MG TAB PO SCH (08:52)
[2019-01-12] MEDS: POTASSIUM CHLORIDE (SR) 20 MEQ TAB PO SCH ×2 (08:53→20:14)
[2019-01-12] MEDS: METOPROLOL 50 MG TAB PO SCH (08:53)
--- NOTE | 2019-01-12 14:16 | CONS ---
Assessment/Plan Assessment/Plan Assessment/Plan (Daily) IMP: 1. ADHF 2. Ischemic Cardiomyopathy 3. Hypothyroidism 4. Anxiety 5. Anemia RECS: 1. Continue diuresis 2. Afterload reduction 3. Consider repeat ECHO 4. Titrate O2 5. Levothyroxine 6. Follow I/Os and BMP Consultation Date/Type/Reason Admit Date/Time Jan 11, 2019 at 11:12 Date of Consultation: Jan 12, 2019 Type of Consult Pulm Date/Time of Note DATE: 01/12/19 TIME: 14:11 Hx of Present Illness Briefly, this is a 73-year-old [place] female with numerous medical problems including HTN, CAD, CHF (HFrEF), s/p PCI, hypothyroidism, anxiety, admitted with 2 days of increasing dyspnea and orthopnea noted to have ADHF. Constitutional: no complaints, poor po Eyes: no complaints ENT: no complaints Respiratory: shortness of breath Cardiovascular: orthopenea Gastrointestinal: decreased appetite Genitourinary: no complaints Musculoskeletal: back pain Skin: no complaints Neurologic: no complaints Endocrine: no complaints Lymphatic: no complaints Psychological: anxiety Past Medical History Medical History: angina, congestive heart failure, coronary artery disease, deep vein thrombosis, diabetes, GERD, hypertension, urinary tract infection Home Meds Active Scripts Ipratropium-Albuterol (Ipratropium-Albuterol) 0.5-3 Mg/3 Ml Ampul.neb, 3 ML HHN Q4H RESP THERAPY PRN for SHORTNESS OF BREATH for 30 Days, #90 Prov:PEDRO KRUSE MD 09/16/18 Pembrolizumab (Keytruda) 100 Mg/4 Ml Vial, 100 MG IV DAILY for 21 Days, #8 VIAL Prov:PEDRO KRUSE MD 09/16/18 Albuterol Sulfate* (Albuterol Sulfate* Neb) 0.083%-3 Ml Neb, 2.5 MG HHN Q8H RESP THERAPY for 90 Days, #90 CAP 2 Refills Prov:PEDRO KRUSE MD 09/16/18 Dexlansoprazole (Dexilant) 60 Mg Cap., 60 MG PO DAILY, #30 CAP Prov:PEDRO KRUSE MD 09/16/18 Fenofibrate* (Fenofibrate*) 200 Mg Cap, 200 MG PO DAILY for 30 Days, #30 CAP Prov:PEDRO KRUSE MD 09/16/18 Levothyroxine Sodium* (Levothyroxine Sodium*) 100 Mcg Tablet, 100 MCG PO BEFORE BREAKFAST, #30 TAB Prov:PEDRO KRUSE MD 09/16/18 Furosemide* (Furosemide*) 40 Mg Tablet, 40 MG PO DAILY for 30 Days, #30 TAB Prov:PEDRO KRUSE MD 09/16/18 Spironolactone* (Aldactone*) 25 Mg Tablet, 25 MG PO DAILY, #30 TAB Prov:PEDRO KRUSE MD 09/16/18 Megestrol Acetate* (Megace*) 40 Mg Tab, 40 MG PO BID for 60 Days, #30 TAB Prov:PEDRO KRUSE MD 09/16/18 Digoxin* (Lanoxin*) 0.125 Mg Tablet, 0.125 MG PO DAILY for 30 Days, #30 TAB Prov:PEDRO KRUSE MD 09/16/18 Potassium Chloride* (Potassium Chloride*) 8 Meq Capsule.er, 8 MEQ PO DAILY for 30 Days, #30 CAP Prov:PEDRO KRUSE MD 09/16/18 Isosorbide Mononitrate* (Isosorbide Mononitrate*) 30 Mg Tab.er.24h, 30 MG PO DAILY for 30 Days, #30 TAB Prov:PEDRO KRUSE MD 09/16/18 Clopidogrel Bisulfate (Clopidogrel) 75 Mg Tablet, 75 MG PO DAILY, #30 TAB Prov:PEDRO KRUSE MD 09/16/18 Acetaminophen* (Tylenol*) 500 Mg Tab, 500 MG PO Q8 PRN for pain and temp. more then 99F for 30 Days, #90 TAB Prov:PEDRO KRUSE MD 09/16/18 Metoprolol Tartrate* (Lopressor*) 50 Mg Tab, 50 MG PO BID, #60 TAB Prov:PEDRO KRUSE MD 09/16/18 Folic Acid* (Folic Acid*) 1 Mg Tablet, 1 MG PO DAILY for 30 Days, #30 TAB Prov:PEDRO KRUSE MD 09/16/18 Losartan-Hydrochlorothiazide (Losartan-HCTZ) 100-25 Mg Tab, 1 TAB PO DAILY for 30 Days, #30 TAB Prov:PEDRO KRUSE MD 09/16/18 Aspirin* (Aspirin* Chew) 81 Mg Tab.chew, 81 MG PO DAILY for 30 Days, #30 TAB.CHEW Prov:PEDRO KRUSE MD 09/16/18 Reported Medications Ergocalciferol* (Drisdol* (Vitamin D2)) 50,000 Unit Capsule, 95768 UNIT PO Q7D for 30 Days, #4 CAP 08/04/16 Medications Current Medications Furosemide (Lasix) 40 mg BID DIURETICS PO Last administered on 01/12/19 05:38; Admin Dose 40 MG; Start 01/11/19 at 21:00 Potassium Chloride (Klor-Con 20) 20 meq BID PO Last administered on 01/12/19 08:53; Admin Dose 20 MEQ; Start 01/11/19 at 21:00 Pantoprazole (Protonix Tab) 40 mg DAILY@06 PO Last administered on 01/12/19 05:38; Admin Dose 40 MG; Start 01/12/19 at 06:00 Aspirin (Halfprin) 81 mg DAILY PO Last administered on 01/12/19 08:52; Admin Dose 81 MG; Start 01/12/19 at 09:00 Spironolactone (Aldactone) 25 mg BID DIURETICS PO Last administered on 01/12/19 05:38; Admin Dose 25 MG; Start 01/11/19 at 18:00 Metoprolol Tartrate (Lopressor) 50 mg BID PO Last administered on 01/12/19 08:53; Admin Dose 50 MG; Start 01/11/19 at 21:00 Clopidogrel Bisulfate (plaVIX) 75 mg DAILY PO Last administered on 01/12/19 08:52; Admin Dose 75 MG; Start 01/12/19 at 09:00 Albuterol/ Ipratropium (Duoneb) 3 ml Q8H RESP THERAPY HHN Last administered on 01/11/19 15:41; Admin Dose 3 ML; Start 01/11/19 at 16:00 Lorazepam (Ativan) 0.5 mg Q6H PRN IV ANXIETY; Start 01/11/19 at 17:30 Levothyroxine Sodium (Synthroid) 112 mcg DAILY@0600 PO Last administered on 3/2/19at 05:38; Admin Dose 112 MCG; Start 01/12/19 at 06:00 Allergies: Coded Allergies: vancomycin (Verified Allergy, Mild, REDNESS AND ITCHING, 03/20/18) Past Surgical History Past Surgical Hx: angioplasty Social History Smoking Status: Never smoker Drug Use: none Exam/Review of Systems Exam Vitals Vital Signs Date Temp Pulse Resp B/P (MAP) Pulse Ox O2 O2 Flow FiO2 Time Delivery Rate 01/12/19 86 12:09 01/12/19 98.3 20 110/67 99 11:48 (81) 01/11/19 21 15:46 01/11/19 Nasal 3.0 12:54 Cannula Intake and Output 01/11/19 01/11/19 01/12/19 1515:00 23:00 07:00 IntakeIntake Total 10 ml 300 ml 350 ml BalanceBalance 10 ml 300 ml 350 ml Constitutional: alert, oriented Psych: anxiety, depression Head: normocephalic, atraumatic Eyes: nl conjunctiva, EOMI, nl lids, nl sclera ENMT: nl external ears & nose, mucosa pink and moist Neck: supple, non-tender, jvd Respiratory: crackles/rales Cardiovascular: regular rate and rhythm, irregular rhythm, jugular venous distention (JVD) Gastrointestinal: soft Musculoskeletal: nl extremities to inspection Extremities: normal pulses, edema 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: 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 ANALYST II-XII intact, DTR's symmetric Results Result Diagram: 01/12/19 0509 01/12/19 0509 Results 24hrs Laboratory Tests Test 01/11/19 16:08 01/11/19 22:11 01/12/19 05:09 Magnesium Level 2.3 Creatine Kinase 39 35 Creatine Kinase Index 1.3 1.1 Creatinine Kinase MB (Mass) 0.51 0.38 Troponin I 0.014 0.014 Thyroid Stimulating Hormone (TSH) 41.800 H White Blood Count 6.3 Red Blood Count 3.77 L Hemoglobin 10.8 L Hematocrit 35.3 L Mean Corpuscular Volume 93.6 Mean Corpuscular Hemoglobin 28.6 L Mean Corpuscular Hemoglobin Concent 30.6 L Red Cell Distribution Width 17.9 H Platelet Count 174 # Mean Platelet Volume 13.2 H Immature Granulocytes % 0.300 Neutrophils % 55.8 Lymphocytes % 31.1 Monocytes % 12.1 H Eosinophils % 0.5 Basophils % 0.2 Nucleated Red Blood Cells % 0.3 H Immature Granulocytes # 0.020 Neutrophils # 3.5 Lymphocytes # 2.0 Monocytes # 0.8 Eosinophils # 0.0 Basophils # 0.0 Nucleated Red Blood Cells # 0.0 Sodium Level 146 H Potassium Level 4.3 Chloride Level 111 H Carbon Dioxide Level 21 Anion Gap 14 H Blood Urea Nitrogen 16 Creatinine 0.76 Est Glomerular Filtrat Rate mL/min Glucose Level 110 Calcium Level 9.8 Total Bilirubin 0.1 L Direct Bilirubin 0.00 Indirect Bilirubin 0.1 Aspartate Amino Transf (AST/SGOT) 32 Alanine Aminotransferase (ALT/SGPT) 31 Alkaline Phosphatase 62 Total Protein 7.3 Albumin 4.3 Globulin 3.00 Albumin/Globulin Ratio 1.43 Medications Medication Current Medications Furosemide (Lasix) 40 mg BID DIURETICS PO Last administered on 01/12/19 05:38; Admin Dose 40 MG; Start 01/11/19 at 21:00 Potassium Chloride (Klor-Con 20) 20 meq BID PO Last administered on 01/12/19 08:53; Admin Dose 20 MEQ; Start 01/11/19 at 21:00 Pantoprazole (Protonix Tab) 40 mg DAILY@06 PO Last administered on 01/12/19 05:38; Admin Dose 40 MG; Start 01/12/19 at 06:00 Aspirin (Halfprin) 81 mg DAILY PO Last administered on 01/12/19 08:52; Admin Dose 81 MG; Start 01/12/19 at 09:00 Spironolactone (Aldactone) 25 mg BID DIURETICS PO Last administered on 01/12/19 05:38; Admin Dose 25 MG; Start 01/11/19 at 18:00 Metoprolol Tartrate (Lopressor) 50 mg BID PO Last administered on 01/12/19 08:53; Admin Dose 50 MG; Start 01/11/19 at 21:00 Clopidogrel Bisulfate (plaVIX) 75 mg DAILY PO Last administered on 01/12/19 08:52; Admin Dose 75 MG; Start 01/12/19 at 09:00 Albuterol/ Ipratropium (Duoneb) 3 ml Q8H RESP THERAPY HHN Last administered on 01/11/19at 15:41; Admin Dose 3 ML; Start 01/11/19 at 16:00 Lorazepam (Ativan) 0.5 mg Q6H PRN IV ANXIETY; Start 01/11/19 at 17:30 Levothyroxine Sodium (Synthroid) 112 mcg DAILY@0600 PO Last administered on 01/12/19at 05:38; Admin Dose 112 MCG; Start 01/12/19 at 06:00 JACKLYN WYATT MD Jan 12, 2019 14:16
--- NOTE | 2019-01-12 17:39 | CONS ---
Assessment/Plan Cardiology NYHA: IV Heart Failure Type: Acute on Chronic Heart Failure Type: Systolic Assessment/Plan Hospital Course (Demo Recall) Assessment: Acute on chronic systolic heart failure Cardiomyopathy, LVEF 25-30% ICD in situ Coronary artery disease, history of PCI Hypothyroidism Lymphoma, undergoing chemotherapy Recommendations: -Lasix 40mg IV BID -continue spironolactone at 25mg daily -carvedilol 3.125mg BID and lisinopril 2.5mg daily, up titrate as tolerated -continue aspirin 81mg and clopidogrel 75mg daily Consultation Date/Type/Reason Admit Date/Time Jan 11, 2019 at 11:12 Type of Consult Cardiology Reason for Consultation congestive heart failure Requesting Provider: PEDRO KRUSE MD Date/Time of Note DATE: 01/12/19 TIME: 17:31 Hx of Present Illness The patient is a 73 year-old female who presented with two days of worsening shortness of breath and orthopnea. BNP is elevated at 10,9000 and chest x-ray findings consistent with congestive heart failure. 14 point review of systems negative other than per HPI. Past Medical History Chronic systolic heart failure Cardiomyopathy, LVEF 25-30% ICD in situ Coronary artery disease, history of PCI Lymphoma Home Meds Active Scripts Ipratropium-Albuterol (Ipratropium-Albuterol) 0.5-3 Mg/3 Ml Ampul.neb, 3 ML HHN Q4H RESP THERAPY PRN for SHORTNESS OF BREATH for 30 Days, #90 Prov:PEDRO KRUSE MD 09/16/18 Pembrolizumab (Keytruda) 100 Mg/4 Ml Vial, 100 MG IV DAILY for 21 Days, #8 VIAL Prov:PEDRO KRUSE MD 09/16/18 Albuterol Sulfate* (Albuterol Sulfate* Neb) 0.083%-3 Ml Neb, 2.5 MG HHN Q8H RESP THERAPY for 90 Days, #90 CAP 2 Refills Prov:PEDRO KRUSE MD 09/16/18 Dexlansoprazole (Dexilant) 60 Mg Cap., 60 MG PO DAILY, #30 CAP Prov:PEDRO KRUSE MD 09/16/18 Fenofibrate* (Fenofibrate*) 200 Mg Cap, 200 MG PO DAILY for 30 Days, #30 CAP Prov:PEDRO KRUSE MD 09/16/18 Levothyroxine Sodium* (Levothyroxine Sodium*) 100 Mcg Tablet, 100 MCG PO BEFORE BREAKFAST, #30 TAB Prov:PEDRO KRUSE MD 09/16/18 Furosemide* (Furosemide*) 40 Mg Tablet, 40 MG PO DAILY for 30 Days, #30 TAB Prov:PEDRO KRUSE MD 09/16/18 Spironolactone* (Aldactone*) 25 Mg Tablet, 25 MG PO DAILY, #30 TAB Prov:PEDRO KRUSE MD 09/16/18 Megestrol Acetate* (Megace*) 40 Mg Tab, 40 MG PO BID for 60 Days, #30 TAB Prov:PEDRO KRUSE MD 09/16/18 Digoxin* (Lanoxin*) 0.125 Mg Tablet, 0.125 MG PO DAILY for 30 Days, #30 TAB Prov:PEDRO KRUSE MD 09/16/18 Potassium Chloride* (Potassium Chloride*) 8 Meq Capsule.er, 8 MEQ PO DAILY for 30 Days, #30 CAP Prov:PEDRO KRUSE MD 09/16/18 Isosorbide Mononitrate* (Isosorbide Mononitrate*) 30 Mg Tab.er.24h, 30 MG PO DAILY for 30 Days, #30 TAB Prov:PEDRO KRUSE MD 09/16/18 Clopidogrel Bisulfate (Clopidogrel) 75 Mg Tablet, 75 MG PO DAILY, #30 TAB Prov:PEDRO KRUSE MD 09/16/18 Acetaminophen* (Tylenol*) 500 Mg Tab, 500 MG PO Q8 PRN for pain and temp. more then 99F for 30 Days, #90 TAB Prov:PEDRO KRUSE MD 09/16/18 Metoprolol Tartrate* (Lopressor*) 50 Mg Tab, 50 MG PO BID, #60 TAB Prov:PEDRO KRUSE MD 09/16/18 Folic Acid* (Folic Acid*) 1 Mg Tablet, 1 MG PO DAILY for 30 Days, #30 TAB Prov:PEDRO KRUSE MD 09/16/18 Losartan-Hydrochlorothiazide (Losartan-HCTZ) 100-25 Mg Tab, 1 TAB PO DAILY for 30 Days, #30 TAB Prov:PEDRO KRUSE MD 09/16/18 Aspirin* (Aspirin* Chew) 81 Mg Tab.chew, 81 MG PO DAILY for 30 Days, #30 TAB.CHEW Prov:PEDRO KRUSE MD 09/16/18 Reported Medications Ergocalciferol* (Drisdol* (Vitamin D2)) 50,000 Unit Capsule, 23842 UNIT PO Q7D for 30 Days, #4 CAP 08/04/16 Medications Current Medications Potassium Chloride (Klor-Con 20) 20 meq BID PO Last administered on 01/12/19 08:53; Admin Dose 20 MEQ; Start 01/11/19 at 21:00 Pantoprazole (Protonix Tab) 40 mg DAILY@06 PO Last administered on 01/12/19 05:38; Admin Dose 40 MG; Start 01/12/19 at 06:00 Aspirin (Halfprin) 81 mg DAILY PO Last administered on 01/12/19 08:52; Admin Dose 81 MG; Start 01/12/19 at 09:00 Spironolactone (Aldactone) 25 mg BID DIURETICS PO Last administered on 01/12/19 17:29; Admin Dose 25 MG; Start 01/11/19 at 18:00 Metoprolol Tartrate (Lopressor) 50 mg BID PO Last administered on 01/12/19 08:53; Admin Dose 50 MG; Start 01/11/19 at 21:00 Clopidogrel Bisulfate (plaVIX) 75 mg DAILY PO Last administered on 01/12/19 08:52; Admin Dose 75 MG; Start 01/12/19 at 09:00 Albuterol/ Ipratropium (Duoneb) 3 ml Q8H RESP THERAPY HHN Last administered on 01/12/19 16:48; Admin Dose 3 ML; Start 01/11/19 at 16:00 Lorazepam (Ativan) 0.5 mg Q6H PRN IV ANXIETY; Start 01/11/19 at 17:30 Levothyroxine Sodium (Synthroid) 112 mcg DAILY@0600 PO Last administered on 01/12/19 05:38; Admin Dose 112 MCG; Start 01/12/19 at 06:00 Furosemide (Lasix) 20 mg BID DIURETICS IV Last administered on 01/12/19 17:29; Admin Dose 20 MG; Start 01/12/19 at 18:00 Allergies: Coded Allergies: vancomycin (Verified Allergy, Mild, REDNESS AND ITCHING, 03/20/18) Past Surgical History Past Surgical Hx: angioplasty Family History Significant Family History: no pertinent family hx Social History Smoking Status: Never smoker Drug Use: none Exam/Review of Systems Vital Signs Vitals Vital Signs Date Temp Pulse Resp B/P (MAP) Pulse Ox O2 O2 Flow FiO2 Time Delivery Rate 01/12/19 92 20 98 21 16:54 01/12/19 98.3 117/74 15:43 (88) 01/11/19 Nasal 3.0 12:54 Cannula Intake and Output 01/11/19 01/11/19 01/12/19 1515:00 23:00 07:00 IntakeIntake Total 10 ml 300 ml 350 ml BalanceBalance 10 ml 300 ml 350 ml Exam Constitutional: alert, well developed Psych: no complaints, nl mood/affect Head: normocephalic, atraumatic Eyes: nl conjunctiva, nl lids ENMT: nl external ears & nose, nl nasal mucosa & septum Neck: supple, non-tender Respiratory: diminished breath sounds; No wheezing Cardiovascular: regular rate and rhythm Gastrointestinal: soft, non-tender Musculoskeletal: nl extremities to inspection Extremities: edema; No cyanosis, No clubbing 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: nl mental status, nl speech Labs Result Diagram: 01/12/19 0509 01/12/19 0509 Results 24hrs Laboratory Tests Test 01/11/19 22:11 01/12/19 05:09 Creatine Kinase 35 Creatine Kinase Index 1.1 Creatinine Kinase MB (Mass) 0.38 Troponin I 0.014 White Blood Count 6.3 Red Blood Count 3.77 L Hemoglobin 10.8 L Hematocrit 35.3 L Mean Corpuscular Volume 93.6 Mean Corpuscular Hemoglobin 28.6 L Mean Corpuscular Hemoglobin Concent 30.6 L Red Cell Distribution Width 17.9 H Platelet Count 174 # Mean Platelet Volume 13.2 H Immature Granulocytes % 0.300 Neutrophils % 55.8 Lymphocytes % 31.1 Monocytes % 12.1 H Eosinophils % 0.5 Basophils % 0.2 Nucleated Red Blood Cells % 0.3 H Immature Granulocytes # 0.020 Neutrophils # 3.5 Lymphocytes # 2.0 Monocytes # 0.8 Eosinophils # 0.0 Basophils # 0.0 Nucleated Red Blood Cells # 0.0 Sodium Level 146 H Potassium Level 4.3 Chloride Level 111 H Carbon Dioxide Level 21 Anion Gap 14 H Blood Urea Nitrogen 16 Creatinine 0.76 Est Glomerular Filtrat Rate mL/min Glucose Level 110 Calcium Level 9.8 Total Bilirubin 0.1 L Direct Bilirubin 0.00 Indirect Bilirubin 0.1 Aspartate Amino Transf (AST/SGOT) 32 Alanine Aminotransferase (ALT/SGPT) 31 Alkaline Phosphatase 62 Total Protein 7.3 Albumin 4.3 Globulin 3.00 Albumin/Globulin Ratio 1.43 Medications Medications Current Medications Potassium Chloride (Klor-Con 20) 20 meq BID PO Last administered on 01/12/19 0 8:53; Admin Dose 20 MEQ; Start 01/11/19 at 21:00 Pantoprazole (Protonix Tab) 40 mg DAILY@06 PO Last administered on 01/12/19 05:38; Admin Dose 40 MG; Start 01/12/19 at 06:00 Aspirin (Halfprin) 81 mg DAILY PO Last administered on 01/12/19 08:52; Admin Dose 81 MG; Start 01/12/19 at 09:00 Spironolactone (Aldactone) 25 mg BID DIURETICS PO Last administered on 01/12/19 17:29; Admin Dose 25 MG; Start 01/11/19 at 18:00 Metoprolol Tartrate (Lopressor) 50 mg BID PO Last administered on 01/12/19 08:53; Admin Dose 50 MG; Start 01/11/19 at 21:00 Clopidogrel Bisulfate (plaVIX) 75 mg DAILY PO Last administered on 01/12/19 08:52; Admin Dose 75 MG; Start 01/12/19 at 09:00 Albuterol/ Ipratropium (Duoneb) 3 ml Q8H RESP THERAPY HHN Last administered on 01/12/19 16:48; Admin Dose 3 ML; Start 01/11/19 at 16:00 Lorazepam (Ativan) 0.5 mg Q6H PRN IV ANXIETY; Start 01/11/19 at 17:30 Levothyroxine Sodium (Synthroid) 112 mcg DAILY@0600 PO Last administered on 01/12/19 05:38; Admin Dose 112 MCG; Start 01/12/19 at 06:00 Furosemide (Lasix) 20 mg BID DIURETICS IV Last administered on 01/12/19 17:29; Admin Dose 20 MG; Start 01/12/19 at 18:00 KRISTINA MISTRY MD Jan 12, 2019 17:39
[2019-01-12] MEDS ORDERED: FUROSEMIDE 20 MG INJ IV SCH (18:00)
[2019-01-12] MEDS ORDERED: FUROSEMIDE 40 MG INJ IV SCH (18:00)
[2019-01-12] MEDS ORDERED: FUROSEMIDE 20 MG INJ IV ONE (18:00)
--- NOTE | 2019-01-12 22:06 | PN ---
Date/Time of Note Date/Time of Note DATE: 01/12/19 TIME: 22:04 Assessment/Plan VTE Prophylaxis Risk score (from Ns)>0 risk: 6 SCD applied (from Ns): No SCD contraindicated: low risk/ambulating Pharmacological prophylaxis: LMWH Lines/Catheters IV Catheter Type (from [facility]): [place] [employer] line still needed: No Urinary Cath still in place: No Reason Cath still needed: urinary retention Assessment/Plan Assessment/Plan 1. Severe respiratory distress with worsening of wheezing and inability to sleep. 2.IHD angina, HX of recent PTCA with one sent and 3 balloon dilatation of narrow coronary arteries(; according to the daughter).Troponin0.034 3. Dysphagia to solids and sometimes to liquids. 4. Pulmonary edema by x-ray with wheezing on admission, improved after lasix. 5. History of Hodgkin lymphoma- s/p chemotherapy and hydration 3-4 days ago. 6. Osteoarthritis with pain syndrome 7. Anxiety disorder. 8. Depression with grief reaction-s/p loss of . 9. Urinary incontinence. 10. Osteoporosis. 11. Kyphosis. 12. Postmenopausal syndrome. 13. Anemia with nl iron. 14. Brain atrophy on CT. 15. Left sphenoid sinusitis on CT. 16. Left ventricular hypertrophy. 17. Urinary incontinence. 18.Cerebrovascular accident, with left facial drooling, left facial weakness, with slurred speech and dysphagia. Mild left upper extremity weakness.mostly corrected. 19. Hypertension, now normotensive.Cardiomegaly on cxr 20.Medication noncompliance. Result Diagram: 01/12/19 0509 01/12/19 0509 Results 24hrs Laboratory Tests Test 01/11/19 22:11 01/12/19 05:09 Creatine Kinase 35 Creatine Kinase Index 1.1 Creatinine Kinase MB (Mass) 0.38 Troponin I 0.014 White Blood Count 6.3 Red Blood Count 3.77 L Hemoglobin 10.8 L Hematocrit 35.3 L Mean Corpuscular Volume 93.6 Mean Corpuscular Hemoglobin 28.6 L Mean Corpuscular Hemoglobin Concent 30.6 L Red Cell Distribution Width 17.9 H Platelet Count 174 # Mean Platelet Volume 13.2 H Immature Granulocytes % 0.300 Neutrophils % 55.8 Lymphocytes % 31.1 Monocytes % 12.1 H Eosinophils % 0.5 Basophils % 0.2 Nucleated Red Blood Cells % 0.3 H Immature Granulocytes # 0.020 Neutrophils # 3.5 Lymphocytes # 2.0 Monocytes # 0.8 Eosinophils # 0.0 Basophils # 0.0 Nucleated Red Blood Cells # 0.0 Sodium Level 146 H Potassium Level 4.3 Chloride Level 111 H Carbon Dioxide Level 21 Anion Gap 14 H Blood Urea Nitrogen 16 Creatinine 0.76 Est Glomerular Filtrat Rate mL/min Glucose Level 110 Calcium Level 9.8 Total Bilirubin 0.1 L Direct Bilirubin 0.00 Indirect Bilirubin 0.1 Aspartate Amino Transf (AST/SGOT) 32 Alanine Aminotransferase (ALT/SGPT) 31 Alkaline Phosphatase 62 Total Protein 7.3 Albumin 4.3 Globulin 3.00 Albumin/Globulin Ratio 1.43 Subjective 24 Hr Interval Summary Free Text/Dictation SOB improved. I am very weak. I can't walk without help. I can't eat. Subjective hx not possible: other (Improved.) Constitutional: improved, poor po, requiring O2; No no complaints, No chills, No diaphoresis, No disoriented, No febrile, No requiring IVF, No other Eyes: No no complaints, No pain, No discharge, No redness, No visual change, No other ENT: No no complaints, No bleeding, No pain, No congestion, No discharge, No dysphagia, No sore throat, No other Respiratory: shortness of breath; No no complaints, No pain, No cough, No pleuritic pain, No sputum, No wheezing, No other Cardiovascular: chest pain, orthopenea, palpitations; No no complaints, No edema, No lightheadedness, No paroxysmal nocturnal dyspnea, No other Gastrointestinal: constipation, flatus, nausea; No no complaints, No pain, No blood, No decreased appetite, No diarrhea, No passing stool, No vomiting, No other Genitourinary: flank pain; No no complaints, No bleeding, No dysuria, No discharge, No hematuria, No other Musculoskeletal: back pain, bone/joint pain Skin: No no complaints, No bruising, No erythema, No laceration, No pruritis, No rash, No skin lesions, No other Neurologic: confusion, dizziness, other (Has difficulty to organize the thoughts and express feelings.); No no complaints, No focal-weakness, No headache, No syncope, No seizure Endocrine: polyuria, dry skin; No no complaints, No polydypsia, No temp intolerance, No other Exam/Review of Systems Exam Vitals Vital Signs Date Temp Pulse Resp B/P (MAP) Pulse Ox O2 O2 Flow FiO2 Time Delivery Rate 01/12/19 Nasal 2.0 20:30 Cannula 01/12/19 101 20:00 01/12/19 98.6 17 99/53 (68) 100 19:51 01/12/19 21 16:54 Intake and Output 01/11/19 01/11/19 01/12/19 1515:00 23:00 07:00 IntakeIntake Total 10 ml 300 ml 350 ml BalanceBalance 10 ml 300 ml 350 ml Constitutional: alert, oriented, well developed, distress, frail (Less distress.), other (Getting tired very easily prefers not to move.) Psych: anxiety, confusion; No no complaints, No nl mood/affect, No depression, No suicidal, No other Head: normocephalic, atraumatic; No lacerations, No hematomas, No other Eyes: EOMI, nl lids, PERRL; No nl conjunctiva, No nl sclera, No icteric, No fundi, disc, No other ENMT: tympanic membranes; No nl external ears & nose, No nl lips & teeth, No nl nasal mucosa & septum, No mucosa pink and moist, No intubated, No other Neck: jvd, bruits, thyromegaly; No supple, No non-tender, No masses, No nuchal rigidity, No other Respiratory: clear to auscultation, normal air movement, diminished breath sounds; No congested cough, No crackles/rales, No intercostal retraction, No labored breathing, No respirations, No tactile fremitus, No wheezing, No other Cardiovascular: regular rate and rhythm, bruits, edema (Trace.), systolic murmur; No nl pulses, No diastolic murmur, No gallop, No irregular rhythm, No jugular venous distention (JVD), No murmurs/extra sounds, No rub, No S3, No S4, No other Gastrointestinal: soft, nl liver, spleen, bowel sounds, distended; No non-tender, No ascites, No firm, No hepatomegaly, No mass, No rebound or guarding, No splenomegaly, No surgical scars, No tender, No other Genitourinary - Female: No nl adnexae, No nl external genitalia, No CMT, No CVA tenderness, No uterus, No other Musculoskeletal: nl gait and stance, joint tenderness, muscle tone, muscle weakness (Decreased muscular tone and mass.); No nl extremities to inspection, No range of motion, No spine non-tender, No swelling, No other Extremities: normal pulses; No calf tenderness, No cyanosis, No clubbing, No edema, No pitting pedal edema, No palpable cord, No tenderness, No other 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: 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 (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 impairment), confused (On and off.), numbness; No nl mental status, No nl speech, No nl strength, No DTR's symmetric, No focal weakness, No lethargic, No reflexes, No unresponsive, No other Skin: nl turgor (Decreased.); No rash or lesions, No diaphoresis, No ecchymosis, No laceration, No puncture, No other Lymph: No nl lymph nodes, No enlarged, No nontender, No other Results Results 24hrs Laboratory Tests Test 01/11/19 22:11 01/12/19 05:09 Creatine Kinase 35 Creatine Kinase Index 1.1 Creatinine Kinase MB (Mass) 0.38 Troponin I 0.014 White Blood Count 6.3 Red Blood Count 3.77 L Hemoglobin 10.8 L Hematocrit 35.3 L Mean Corpuscular Volume 93.6 Mean Corpuscular Hemoglobin 28.6 L Mean Corpuscular Hemoglobin Concent 30.6 L Red Cell Distribution Width 17.9 H Platelet Count 174 # Mean Platelet Volume 13.2 H Immature Granulocytes % 0.300 Neutrophils % 55.8 Lymphocytes % 31.1 Monocytes % 12.1 H Eosinophils % 0.5 Basophils % 0.2 Nucleated Red Blood Cells % 0.3 H Immature Granulocytes # 0.020 Neutrophils # 3.5 Lymphocytes # 2.0 Monocytes # 0.8 Eosinophils # 0.0 Basophils # 0.0 Nucleated Red Blood Cells # 0.0 Sodium Level 146 H Potassium Level 4.3 Chloride Level 111 H Carbon Dioxide Level 21 Anion Gap 14 H Blood Urea Nitrogen 16 Creatinine 0.76 Est Glomerular Filtrat Rate mL/min Glucose Level 110 Calcium Level 9.8 Total Bilirubin 0.1 L Direct Bilirubin 0.00 Indirect Bilirubin 0.1 Aspartate Amino Transf (AST/SGOT) 32 Alanine Aminotransferase (ALT/SGPT) 31 Alkaline Phosphatase 62 Total Protein 7.3 Albumin 4.3 Globulin 3.00 Albumin/Globulin Ratio 1.43 Medications Medication Current Medications Potassium Chloride (Klor-Con 20) 20 meq BID PO Last administered on 01/12/19 20:14; Admin Dose 20 MEQ; Start 01/11/19 at 21:00 Pantoprazole (Protonix Tab) 40 mg DAILY@06 PO Last administered on 01/12/19 05:38; Admin Dose 40 MG; Start 01/12/19 at 06:00 Aspirin (Halfprin) 81 mg DAILY PO Last administered on 01/12/19 08:52; Admin Dose 81 MG; Start 01/12/19 at 09:00 Clopidogrel Bisulfate (plaVIX) 75 mg DAILY PO Last administered on 01/12/19 08:52; Admin Dose 75 MG; Start 01/12/19 at 09:00 Albuterol/ Ipratropium (Duoneb) 3 ml Q8H RESP THERAPY HHN Last administered on 01/12/19 16:48; Admin Dose 3 ML; Start 01/11/19 at 16:00 Lorazepam (Ativan) 0.5 mg Q6H PRN IV ANXIETY; Start 01/11/19 at 17:30 Levothyroxine Sodium (Synthroid) 112 mcg DAILY@0600 PO Last administered on 01/12/19 05:38; Admin Dose 112 MCG; Start 01/12/19 at 06:00 Spironolactone (Aldactone) 25 mg DAILY@0600 PO ; Start 01/13/19 at 06:00 Carvedilol (Coreg) 3.125 mg BID PO Last administered on 01/12/19at 20:16; Admin Dose 3.125 MG; Start 01/12/19 at 21:00 Lisinopril (Zestril) 2.5 mg DAILY PO ; Start 01/13/19 at 09:00 Furosemide (Lasix) 40 mg BID DIURETICS IV ; Start 01/13/19 at 06:00 PEDRO KRUSE MD Jan 12, 2019 22:06
--- NOTE | 2019-01-12 23:05 | CONS ---
Assessment/Plan Assessment/Plan Hospital Course (Demo Recall) Hodgkin lymphoma- s/p chemotherapy chemo - on hold Anemia with nl iron. monitor Severe respiratory distress improving. IHD angina, Low LVEF dropped. Dysphagia to solids and sometimes to liquids. Continue w/u. Pulmonary edema by x-ray with wheezing on admission, improved after lasix. Osteoarthritis with pain syndrome Anxiety disorder. Depression with grief reaction-s/p loss of . Urinary incontinence. Osteoporosis. Kyphosis. Postmenopausal syndrome. Brain atrophy on CT. Left sphenoid sinusitis on CT. Left ventricular hypertrophy. Urinary incontinence. Cerebrovascular accident, with left facial drooling, left facial weakness, with slurred speech and dysphagia. Mild left upper extremity weakness.mostly corrected. Hypertension, now normotensive. HX of PTCA with one sent and 3 balloon dilatation of narrow coronary arteries(; ) Medication noncompliance. now refuses studies> Consultation Date/Type/Reason Admit Date/Time Jan 11, 2019 at 11:12 Initial Consult Date 01/12/19 Requesting Provider: PEDRO KRUSE MD Date/Time of Note DATE: 01/12/19 TIME: 23:01 24 HR Interval Summary Free Text/Dictation all noted d/w sons felling better Exam/Review of Systems Exam Vitals Vital Signs Date Temp Pulse Resp B/P (MAP) Pulse Ox O2 O2 Flow FiO2 Time Delivery Rate 01/12/19 Nasal 2.0 20:30 Cannula 01/12/19 101 20:00 01/12/19 98.6 17 99/53 (68) 100 19:51 01/12/19 21 16:54 Intake and Output 01/11/19 01/11/19 01/12/19 1515:00 23:00 07:00 IntakeIntake Total 10 ml 300 ml 350 ml BalanceBalance 10 ml 300 ml 350 ml Exam Constitutional: alert, oriented Psych: anxiety, depression Head: normocephalic, atraumatic Eyes: nl conjunctiva, EOMI, nl lids, nl sclera ENMT: nl external ears & nose, mucosa pink and moist Neck: supple, non-tender, jvd Respiratory: crackles/rales Cardiovascular: regular rate and rhythm, irregular rhythm, jugular venous distention (JVD) Gastrointestinal: soft Musculoskeletal: nl extremities to inspection Extremities: normal pulses, edema 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: 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, DTR's symmetric Results Result Diagram: 01/12/19 0509 01/12/19 0509 Results 24hrs Laboratory Tests Test 01/12/19 05:09 White Blood Count 6.3 Red Blood Count 3.77 L Hemoglobin 10.8 L Hematocrit 35.3 L Mean Corpuscular Volume 93.6 Mean Corpuscular Hemoglobin 28.6 L Mean Corpuscular Hemoglobin Concent 30.6 L Red Cell Distribution Width 17.9 H Platelet Count 174 # Mean Platelet Volume 13.2 H Immature Granulocytes % 0.300 Neutrophils % 55.8 Lymphocytes % 31.1 Monocytes % 12.1 H Eosinophils % 0.5 Basophils % 0.2 Nucleated Red Blood Cells % 0.3 H Immature Granulocytes # 0.020 Neutrophils # 3.5 Lymphocytes # 2.0 Monocytes # 0.8 Eosinophils # 0.0 Basophils # 0.0 Nucleated Red Blood Cells # 0.0 Sodium Level 146 H Potassium Level 4.3 Chloride Level 111 H Carbon Dioxide Level 21 Anion Gap 14 H Blood Urea Nitrogen 16 Creatinine 0.76 Est Glomerular Filtrat Rate mL/min Glucose Level 110 Calcium Level 9.8 Total Bilirubin 0.1 L Direct Bilirubin 0.00 Indirect Bilirubin 0.1 Aspartate Amino Transf (AST/SGOT) 32 Alanine Aminotransferase (ALT/SGPT) 31 Alkaline Phosphatase 62 Total Protein 7.3 Albumin 4.3 Globulin 3.00 Albumin/Globulin Ratio 1.43 Imaging Imaging PROCEDURE: XR chest. CLINICAL INDICATION: CHF TECHNIQUE: A single portable view of the chest was obtained. COMPARISON: 01/11/2019 FINDINGS: Left chest cardiac device is present with its lead terminating in the right ventricle. There is mild bibasilar atelectasis. Diffuse interstitial and airspace opacities in both lungs are resolved. There is no pleural effusion or pneumothorax. The cardiac silhouette is enlarged, unchanged. The aorta is atherosclerotic. IMPRESSION: 1. Interval resolution of diffuse interstitial and airspace opacities in both lungs representing pulmonary edema. 2. Cardiomegaly. RPTAT: HRF Physician Ayla Date Time Electronically viewed and signed by Physician Ayla on 01/12/2019 15:11 RF/ CC: JACKLYN WYATT MD [id number] Medications Medication Current Medications Potassium Chloride (Klor-Con 20) 20 meq BID PO Last administered on 01/12/19 20:14; Admin Dose 20 MEQ; Start 01/11/19 at 21:00 Pantoprazole (Protonix Tab) 40 mg DAILY@06 PO Last administered on 01/12/19 05:38; Admin Dose 40 MG; Start 01/12/19 at 06:00 Aspirin (Halfprin) 81 mg DAILY PO Last administered on 01/12/19 08:52; Admin Dose 81 MG; Start 01/12/19 at 09:00 Clopidogrel Bisulfate (plaVIX) 75 mg DAILY PO Last administered on 01/12/19 08:52; Admin Dose 75 MG; Start 01/12/19 at 09:00 Albuterol/ Ipratropium (Duoneb) 3 ml Q8H RESP THERAPY HHN Last administered on 01/12/19 16:48; Admin Dose 3 ML; Start 01/11/19 at 16:00 Lorazepam (Ativan) 0.5 mg Q6H PRN IV ANXIETY; Start 01/11/19 at 17:30 Levothyroxine Sodium (Synthroid) 112 mcg DAILY@0600 PO Last administered on 01/12/19 05:38; Admin Dose 112 MCG; Start 01/12/19 at 06:00 Spironolactone (Aldactone) 25 mg DAILY@0600 PO ; Start 01/13/19 at 06:00 Carvedilol (Coreg) 3.125 mg BID PO Last administered on 01/12/19 20:16; Admin Dose 3.125 MG; Start 01/12/19 at 21:00 Lisinopril (Zestril) 2.5 mg DAILY PO ; Start 01/13/19 at 09:00 Furosemide (Lasix) 40 mg BID DIURETICS IV ; Start 01/13/19 at 06:00 KALPANA ANGELES MD Jan 12, 2019 23:05
[2019-01-13] VITALS (8 sets, daily range): BP systolic 102–123; BP diastolic 56–72; PULSE 86–101; RESP 17–20
[2019-01-13] MEDS: LEVOTHYROXINE 112 MCG TAB PO SCH (05:15)
[2019-01-13] MEDS: PANTOPRAZOLE (EC) 40 MG TAB PO SCH (05:16)
[2019-01-13] MEDS ORDERED: SPIRONOLACTONE 25 MG TAB PO SCH (06:00)
[2019-01-13] MEDS ORDERED: FUROSEMIDE 40 MG INJ IV SCH (06:00)
[2019-01-13] MEDS: ALBUTEROL/IPRATROPIUM (NEB) 3 ML AMP HHN SCH (08:00)
[2019-01-13] MEDS: POTASSIUM CHLORIDE (SR) 20 MEQ TAB PO SCH (08:41)
[2019-01-13] MEDS: ASPIRIN (EC) 81 MG TAB PO SCH (08:41)
[2019-01-13] MEDS: CLOPIDOGREL 75 MG TAB PO SCH (08:41)
[2019-01-13] MEDS ORDERED: LISINOPRIL 5 MG TAB PO SCH (09:00)
--- NOTE | 2019-01-13 13:50 | PDOCDIS ---
Discharge Instructions DIAGNOSIS Discharge Diagnosis 1. Severe respiratory distress with worsening of wheezing and inability to sleep. Improved. 2.IHD angina, HX of recent PTCA with one sent and 3 balloon dilatation of narrow coronary arteries(; according to the daughter).Troponin0.034 3. Dysphagia to solids and sometimes to liquids. 4. Pulmonary edema by x-ray with wheezing on admission, improved after lasix. 5. History of Hodgkin lymphoma- s/p chemotherapy and hydration 3-4 days ago. 6. Osteoarthritis with pain syndrome 7. Anxiety disorder. 8. Depression with grief reaction-s/p loss of . 9. Urinary incontinence. 10. Osteoporosis. 11. Kyphosis. 12. Postmenopausal syndrome. 13. Anemia with nl iron. 14. Brain atrophy on CT. 15. Left sphenoid sinusitis on CT. 16. Left ventricular hypertrophy. 17. Urinary incontinence. 18.Cerebrovascular accident, with left facial drooling, left facial weakness, with slurred speech and dysphagia. Mild left upper extremity weakness.mostly corrected. 19. Hypertension, now normotensive.Cardiomegaly on cxr 20. Status post unknown precise procedures which was done in the [facility] about a month or 2 ago. 21.Medication noncompliance. CONDITION [id number] Patient Condition: [id number] Guarded HOME CARE INSTRUCTIONS: [id number] Diet Instructions: [id number] Reduced Sodium ACTIVITY: [id number] Activity Restrictions: [id number] Slowly Increase Activity [id number] Bathing Restrictions: [id number] Shower FOLLOW UP/APPOINTMENTS Follow-up Plan In [address] Kruse OTHER ORDERS: Other Orders: To be followed by oncologist Dr. Salomon in 1 week To be followed by continuity editor Dr. Alvarez in 10 days SCHOOL/WORK RELEASE May return to School/Work on: Jan 13, 2019 May return to School/Work with: None. PEDRO KRUSE MD Jan 13, 2019 13:50
--- NOTE | 2019-01-13 13:54 | DS ---
Date/Time of Note Date/Time of Note DATE: 01/13/19 TIME: 13:52 Discharge Summary Admission/Discharge Info Admit Date/Time Jan 11, 2019 at 11:12 Discharge Date/Time January 13, 2019 15 p.m.. Discharge Diagnosis 1. Severe respiratory distress with worsening of wheezing and inability to sleep. Improved. 2.IHD angina, HX of recent PTCA with one sent and 3 balloon dilatation of narrow coronary arteries(; according to the daughter).Troponin0.034 3. Dysphagia to solids and sometimes to liquids. 4. Pulmonary edema by x-ray with wheezing on admission, improved after lasix. 5. History of Hodgkin lymphoma- s/p chemotherapy and hydration 3-4 days ago. 6. Osteoarthritis with pain syndrome 7. Anxiety disorder. 8. Depression with grief reaction-s/p loss of . 9. Urinary incontinence. 10. Osteoporosis. 11. Kyphosis. 12. Postmenopausal syndrome. 13. Anemia with nl iron. 14. Brain atrophy on CT. 15. Left sphenoid sinusitis on CT. 16. Left ventricular hypertrophy. 17. Urinary incontinence. 18.Cerebrovascular accident, with left facial drooling, left facial weakness, with slurred speech and dysphagia. Mild left upper extremity weakness.mostly corrected. 19. Hypertension, now normotensive.Cardiomegaly on cxr 20. Status post unknown precise procedures which was done in the [facility] about a month or 2 ago. 21.Medication noncompliance. Patient Condition: Guarded Hx of Present Illness Patient c/o acute shortness of breath, cough for the last 2 days. She had similar symptoms previously. She has history of intubation due to acute respiratory failure at [facility], had a cardiac study (angiography) with ballon dilatations and stent placed at another hospital. She denies fever, chills, syncope, near syncope.She also c/o neck pain, chest pain, chest pain with exertion left more than right side with difficulty to inspire,vomiting or diaphoresis. She denies abdominal pain, vomiting, dysuria, diarrhea. She does not smoke nor drink. Hospital Course The patient admitted with a severe respiratory distress which was assessed as a pulmonary edema. She was the just discharged from a [facility] with unknown precise name of the procedure. According to the family for mitral insufficiency cautery continues narrowing of the stapling of the mitral valve was performed; more details will get later. Home Meds Active Scripts Ipratropium-Albuterol (Ipratropium-Albuterol) 0.5-3 Mg/3 Ml Ampul.neb, 3 ML HHN Q4H RESP THERAPY PRN for SHORTNESS OF BREATH for 30 Days, #90 Prov:PRINCESS KRUSE MD 09/16/18 Pembrolizumab (Keytruda) 100 Mg/4 Ml Vial, 100 MG IV DAILY for 21 Days, #8 VIAL Prov:PRINCESS KRUSE MD 09/16/18 Albuterol Sulfate* (Albuterol Sulfate* Neb) 0.083%-3 Ml Neb, 2.5 MG HHN Q8H RESP THERAPY for 90 Days, #90 CAP 2 Refills Prov:PRINCESS KRUSE MD 09/16/18 Dexlansoprazole (Dexilant) 60 Mg Cap., 60 MG PO DAILY, #30 CAP Prov:PRINCESS KRUSE MD 09/16/18 Fenofibrate* (Fenofibrate*) 200 Mg Cap, 200 MG PO DAILY for 30 Days, #30 CAP Prov:PRINCESS KRUSE MD 09/16/18 Levothyroxine Sodium* (Levothyroxine Sodium*) 100 Mcg Tablet, 100 MCG PO BEFORE BREAKFAST, #30 TAB Prov:PRINCESS KRUSE MD 09/16/18 Furosemide* (Furosemide*) 40 Mg Tablet, 40 MG PO DAILY for 30 Days, #30 TAB Prov:PRINCESS KRUSE MD 09/16/18 Spironolactone* (Aldactone*) 25 Mg Tablet, 25 MG PO DAILY, #30 TAB Prov:PRINCESS KRUSE MD 09/16/18 Megestrol Acetate* (Megace*) 40 Mg Tab, 40 MG PO BID for 60 Days, #30 TAB Prov:PRINCESS KRUSE MD 09/16/18 Digoxin* (Lanoxin*) 0.125 Mg Tablet, 0.125 MG PO DAILY for 30 Days, #30 TAB Prov:PRINCESS KRUSE MD 09/16/18 Potassium Chloride* (Potassium Chloride*) 8 Meq Capsule.er, 8 MEQ PO DAILY for 30 Days, #30 CAP Prov:PRINCESS KRUSE MD 09/16/18 Isosorbide Mononitrate* (Isosorbide Mononitrate*) 30 Mg Tab.er.24h, 30 MG PO DAILY for 30 Days, #30 TAB Prov:PRINCESS KRUSE MD 09/16/18 Clopidogrel Bisulfate (Clopidogrel) 75 Mg Tablet, 75 MG PO DAILY, #30 TAB Prov:PRINCESS KRUSE MD 09/16/18 Acetaminophen* (Tylenol*) 500 Mg Tab, 500 MG PO Q8 PRN for pain and temp. more then 99F for 30 Days, #90 TAB Prov:PRINCESS KRUSE MD 09/16/18 Metoprolol Tartrate* (Lopressor*) 50 Mg Tab, 50 MG PO BID, #60 TAB Prov:PRINCESS KRUSE MD 09/16/18 Folic Acid* (Folic Acid*) 1 Mg Tablet, 1 MG PO DAILY for 30 Days, #30 TAB Prov:PRINCESS KRUSE MD 09/16/18 Losartan-Hydrochlorothiazide (Losartan-HCTZ) 100-25 Mg Tab, 1 TAB PO DAILY for 30 Days, #30 TAB Prov:PRINCESS KRUSE MD 09/16/18 Aspirin* (Aspirin* Chew) 81 Mg Tab.chew, 81 MG PO DAILY for 30 Days, #30 TAB.CHEW Prov:PRINCESS KRUSE MD 09/16/18 Reported Medications Ergocalciferol* (Drisdol* (Vitamin D2)) 50,000 Unit Capsule, 04615 UNIT PO Q7D for 30 Days, #4 CAP 08/04/16 Follow-up Plan In [address] Kruse Primary Care Provider Princess Kruse MD Time spent on discharge: > 30 minutes Pending Labs Laboratory Tests Test 01/13/19 05:08 White Blood Count 5.3 10^3/ul (4.8-10.8) Red Blood Count 3.66 10^6/ul (4.20-5.40) Hemoglobin 10.6 g/dl (12.0-16.0) Hematocrit 34.3 % (37.0-47.0) Mean Corpuscular Volume 93.7 fl (82.0-101.0) Mean Corpuscular Hemoglobin 29.0 pg (29.0-33.0) Mean Corpuscular Hemoglobin Concent 30.9 g/dl (32.0-37.0) Red Cell Distribution Width 18.1 % (11.5-14.5) Platelet Count 186 10^3/UL (140-415) Mean Platelet Volume 12.6 fl (7.4-10.4) Immature Granulocytes % 0.400 % (0.001-0.429) Neutrophils % 53.7 % (39.0-77.0) Lymphocytes % 31.8 % (15.0-51.0) Monocytes % 13.0 % (0.0-11.0) Eosinophils % 0.9 % (0.0-7.0) Basophils % 0.2 % (0.0-2.0) Nucleated Red Blood Cells % 0.0 /100WBC (0.0-0.0) Immature Granulocytes # 0.020 10^3/ul (0.0-0.031) Neutrophils # 2.9 10^3/ul (1.6-7.5) Lymphocytes # 1.7 10^3/ul (0.8-2.9) Monocytes # 0.7 10^3/ul (0.3-0.9) Eosinophils # 0.1 10^3/ul (0.0-0.5) Basophils # 0.0 10^3/ul (0.0-0.1) Nucleated Red Blood Cells # 0.0 10^3/ul (0.0-0.0) Sodium Level 143 mmol/L (135-144) Potassium Level 4.0 mmol/L (3.5-5.1) Chloride Level 106 mmol/L (97-110) Carbon Dioxide Level 23 mmol/L (21-31) Anion Gap 14 (5-13) Blood Urea Nitrogen 17 mg/dl (7-20) Creatinine 0.87 mg/dl (0.44-1.00) Est Glomerular Filtrat Rate mL/min mL/min (>60) Glucose Level 92 mg/dl (70-220) Calcium Level 9.5 mg/dl (8.4-10.2) Total Bilirubin 0.1 mg/dl (0.2-1.3) Direct Bilirubin 0.00 mg/dl (0.00-0.20) Indirect Bilirubin 0.1 mg/dl (0-1.1) Aspartate Amino Transf (AST/SGOT) 22 IU/L (15-46) Alanine Aminotransferase (ALT/SGPT) 30 IU/L (13-69) Alkaline Phosphatase 62 IU/L (42-121) Total Protein 6.8 g/dl (6.1-8.1) Albumin 3.9 g/dl (3.3-4.9) Globulin 2.90 g/dl (1.3-3.2) Albumin/Globulin Ratio 1.34 PRINCESS KRUSE MD Jan 13, 2019 13:54
--- NOTE | 2019-01-13 14:31 | CONS ---
Consult Date/Type/Reason Admit Date/Time Jan 11, 2019 at 11:12 Initial Consult Date 01/12/19 Type of Consultation: Pulm Requesting Provider: PEDRO KRUSE MD Date/Time of Note DATE: 01/13/19 TIME: 14:29 Subjective Overall much better. Objective Vitals Vital Signs Date Temp Pulse Resp B/P (MAP) Pulse Ox O2 O2 Flow FiO2 Time Delivery Rate 01/13/19 90 12:35 01/13/19 98.3 20 106/72 99 11:43 (83) 01/12/19 20:30 01/12/19 21 16:54 Intake and Output 01/12/19 01/12/19 01/13/19 1515:00 23:00 07:00 IntakeIntake Total 550 ml 300 ml BalanceBalance 550 ml 300 ml Exam HEENT: Neck supple; no JVD; no LAD CVS: Irreg, S1 and S2 CHEST: Bibasilar rales ABD: Soft, NT, + BS EXT: No c/c/e Results/Medications Result Diagram: 01/13/19 0508 01/13/19 0508 Results 24 hrs Laboratory Tests Test 01/13/19 05:08 White Blood Count 5.3 Red Blood Count 3.66 L Hemoglobin 10.6 L Hematocrit 34.3 L Mean Corpuscular Volume 93.7 Mean Corpuscular Hemoglobin 29.0 Mean Corpuscular Hemoglobin Concent 30.9 L Red Cell Distribution Width 18.1 H Platelet Count 186 Mean Platelet Volume 12.6 H Immature Granulocytes % 0.400 Neutrophils % 53.7 Lymphocytes % 31.8 Monocytes % 13.0 H Eosinophils % 0.9 Basophils % 0.2 Nucleated Red Blood Cells % 0.0 Immature Granulocytes # 0.020 Neutrophils # 2.9 Lymphocytes # 1.7 Monocytes # 0.7 Eosinophils # 0.1 Basophils # 0.0 Nucleated Red Blood Cells # 0.0 Sodium Level 143 Potassium Level 4.0 Chloride Level 106 Carbon Dioxide Level 23 Anion Gap 14 H Blood Urea Nitrogen 17 Creatinine 0.87 Est Glomerular Filtrat Rate mL/min Glucose Level 92 Calcium Level 9.5 Total Bilirubin 0.1 L Direct Bilirubin 0.00 Indirect Bilirubin 0.1 Aspartate Amino Transf (AST/SGOT) 22 Alanine Aminotransferase (ALT/SGPT) 30 Alkaline Phosphatase 62 Total Protein 6.8 Albumin 3.9 Globulin 2.90 Albumin/Globulin Ratio 1.34 Home Meds Active Scripts Ipratropium-Albuterol (Ipratropium-Albuterol) 0.5-3 Mg/3 Ml Ampul.neb, 3 ML HHN Q4H RESP THERAPY PRN for SHORTNESS OF BREATH for 30 Days, #90 Prov:PEDRO KRUSE MD 09/16/18 Albuterol Sulfate* (Albuterol Sulfate* Neb) 0.083%-3 Ml Neb, 2.5 MG HHN Q8H RESP THERAPY for 90 Days, #90 CAP 2 Refills Prov:PEDRO KRUSE MD 09/16/18 Dexlansoprazole (Dexilant) 60 Mg Cap., 60 MG PO DAILY, #30 CAP Prov:PEDRO KRUSE MD 09/16/18 Fenofibrate* (Fenofibrate*) 200 Mg Cap, 200 MG PO DAILY for 30 Days, #30 CAP Prov:PEDRO KRUSE MD 09/16/18 Levothyroxine Sodium* (Levothyroxine Sodium*) 100 Mcg Tablet, 100 MCG PO BEFORE BREAKFAST, #30 TAB Prov:PEDRO KRUSE MD 09/16/18 Furosemide* (Furosemide*) 40 Mg Tablet, 40 MG PO DAILY for 30 Days, #30 TAB Prov:PEDRO KRUSE MD 09/16/18 Spironolactone* (Aldactone*) 25 Mg Tablet, 25 MG PO DAILY, #30 TAB Prov:PEDRO KRUSE MD 09/16/18 Megestrol Acetate* (Megace*) 40 Mg Tab, 40 MG PO BID for 60 Days, #30 TAB Prov:PEDRO KRUSE MD 09/16/18 Digoxin* (Lanoxin*) 0.125 Mg Tablet, 0.125 MG PO DAILY for 30 Days, #30 TAB Prov:PEDRO KRUSE MD 09/16/18 Potassium Chloride* (Potassium Chloride*) 8 Meq Capsule.er, 8 MEQ PO DAILY for 30 Days, #30 CAP Prov:PEDRO KRUSE MD 09/16/18 Isosorbide Mononitrate* (Isosorbide Mononitrate*) 30 Mg Tab.er.24h, 30 MG PO DAILY for 30 Days, #30 TAB Prov:PEDRO KRUSE MD 09/16/18 Clopidogrel Bisulfate (Clopidogrel) 75 Mg Tablet, 75 MG PO DAILY, #30 TAB Prov:PERDO KRUSE MD 09/16/18 Acetaminophen* (Tylenol*) 500 Mg Tab, 500 MG PO Q8 PRN for pain and temp. more then 99F for 30 Days, #90 TAB Prov:PEDRO KRUSE MD 09/16/18 Metoprolol Tartrate* (Lopressor*) 50 Mg Tab, 50 MG PO BID, #60 TAB Prov:PEDRO KRUSE MD 09/16/18 Folic Acid* (Folic Acid*) 1 Mg Tablet, 1 MG PO DAILY for 30 Days, #30 TAB Prov:PEDRO KRUSE MD 09/16/18 Losartan-Hydrochlorothiazide (Losartan-HCTZ) 100-25 Mg Tab, 1 TAB PO DAILY for 30 Days, #30 TAB Prov:PEDRO KRUSE MD 09/16/18 Aspirin* (Aspirin* Chew) 81 Mg Tab.chew, 81 MG PO DAILY for 30 Days, #30 TAB.CHEW Prov:PEDRO KRUSE MD 09/16/18 Reported Medications Ergocalciferol* (Drisdol* (Vitamin D2)) 50,000 Unit Capsule, 83134 UNIT PO Q7D for 30 Days, #4 CAP 08/04/16 Discontinued Scripts Pembrolizumab (Keytruda) 100 Mg/4 Ml Vial, 100 MG IV DAILY for 21 Days, #8 VIAL Prov:PEDOR KRUSE MD 09/16/18 Medications Current Medications Potassium Chloride (Klor-Con 20) 20 meq BID PO Last administered on 01/13/19 08:41; Admin Dose 20 MEQ; Start 01/11/19 at 21:00 Pantoprazole (Protonix Tab) 40 mg DAILY@06 PO Last administered on 01/13/19 05:16; Admin Dose 40 MG; Start 01/12/19 at 06:00 Aspirin (Halfprin) 81 mg DAILY PO Last administered on 01/13/19 08:41; Admin Dose 81 MG; Start 01/12/19 at 09:00 Clopidogrel Bisulfate (plaVIX) 75 mg DAILY PO Last administered on 01/13/19 08:41; Admin Dose 75 MG; Start 01/12/19 at 09:00 Albuterol/ Ipratropium (Duoneb) 3 ml Q8H RESP THERAPY HHN Last administered on 01/12/19 16:48; Admin Dose 3 ML; Start 01/11/19 at 16:00 Lorazepam (Ativan) 0.5 mg Q6H PRN IV ANXIETY; Start 01/11/19 at 17:30 Levothyroxine Sodium (Synthroid) 112 mcg DAILY@0600 PO Last administered on 01/13/19 05:15; Admin Dose 112 MCG; Start 01/12/19 at 06:00 Spironolactone (Aldactone) 25 mg DAILY@0600 PO Last administered on 01/13/19 05:15; Admin Dose 25 MG; Start 01/13/19 at 06:00 Carvedilol (Coreg) 3.125 mg BID PO Last administered on 01/13/19 08:42; Admin Dose 3.125 MG; Start 01/12/19 at 21:00 Lisinopril (Zestril) 2.5 mg DAILY PO Last administered on 01/13/19 08:41; Admin Dose 2.5 MG; Start 01/13/19 at 09:00 Furosemide (Lasix) 40 mg BID DIURETICS IV Last administered on 01/13/19 05:16; Admin Dose 40 MG; Start 01/13/19 at 06:00 Assessment/Plan Assessment/Plan (Daily) IMP: 1. ADHF 2. Ischemic Cardiomyopathy 3. Hypothyroidism 4. Anxiety 5. Anemia RECS: 1. Continue diuresis 2. Afterload reduction 3. Consider repeat ECHO 4. Titrate O2 5. Levothyroxine 6. Follow I/Os and BMP JACKLYN WYATT MD Jan 13, 2019 14:31
--- NOTE | 2019-01-13 18:01 | CONS ---
Assessment/Plan Assessment/Plan Hospital Course (Demo Recall) Hodgkin lymphoma- s/p chemotherapy chemo - on hold Anemia with nl iron. monitor Severe respiratory distress improving. IHD angina, Low LVEF dropped. Dysphagia to solids and sometimes to liquids. Continue w/u. Pulmonary edema by x-ray with wheezing on admission, improved after lasix. Osteoarthritis with pain syndrome Anxiety disorder. Depression with grief reaction-s/p loss of . Urinary incontinence. Osteoporosis. Kyphosis. Postmenopausal syndrome. Brain atrophy on CT. Left sphenoid sinusitis on CT. Left ventricular hypertrophy. Urinary incontinence. Cerebrovascular accident, with left facial drooling, left facial weakness, with slurred speech and dysphagia. Mild left upper extremity weakness.mostly corrected. Hypertension, now normotensive. HX of PTCA with one sent and 3 balloon dilatation of narrow coronary arteries(; ) Medication noncompliance. now refuses studies> Consultation Date/Type/Reason Admit Date/Time Jan 11, 2019 at 11:12 Initial Consult Date 01/12/19 Requesting Provider: PEDRO KRUSE MD Date/Time of Note DATE: 01/13/19 TIME: 18:01 Exam/Review of Systems Exam Vitals Vital Signs Date Temp Pulse Resp B/P (MAP) Pulse Ox O2 O2 Flow FiO2 Time Delivery Rate 01/13/19 90 12:35 01/13/19 98.3 20 106/72 99 11:43 (83) 01/12/19 20:30 01/12/19 21 16:54 Intake and Output 01/12/19 01/12/19 01/13/19 1515:00 23:00 07:00 IntakeIntake Total 550 ml 300 ml BalanceBalance 550 ml 300 ml Results Result Diagram: 01/13/19 0508 01/13/19 0508 Results 24hrs Laboratory Tests Test 01/13/19 05:08 White Blood Count 5.3 Red Blood Count 3.66 L Hemoglobin 10.6 L Hematocrit 34.3 L Mean Corpuscular Volume 93.7 Mean Corpuscular Hemoglobin 29.0 Mean Corpuscular Hemoglobin Concent 30.9 L Red Cell Distribution Width 18.1 H Platelet Count 186 Mean Platelet Volume 12.6 H Immature Granulocytes % 0.400 Neutrophils % 53.7 Lymphocytes % 31.8 Monocytes % 13.0 H Eosinophils % 0.9 Basophils % 0.2 Nucleated Red Blood Cells % 0.0 Immature Granulocytes # 0.020 Neutrophils # 2.9 Lymphocytes # 1.7 Monocytes # 0.7 Eosinophils # 0.1 Basophils # 0.0 Nucleated Red Blood Cells # 0.0 Sodium Level 143 Potassium Level 4.0 Chloride Level 106 Carbon Dioxide Level 23 Anion Gap 14 H Blood Urea Nitrogen 17 Creatinine 0.87 Est Glomerular Filtrat Rate mL/min Glucose Level 92 Calcium Level 9.5 Total Bilirubin 0.1 L Direct Bilirubin 0.00 Indirect Bilirubin 0.1 Aspartate Amino Transf (AST/SGOT) 22 Alanine Aminotransferase (ALT/SGPT) 30 Alkaline Phosphatase 62 Total Protein 6.8 Albumin 3.9 Globulin 2.90 Albumin/Globulin Ratio 1.34 KALPANA ANGELES MD Jan 13, 2019 18:01
== END 2019-01-13 15:55 | disposition home or self-care (01) | DRG 292 ==
LOC: E/R 09:31 → 6WM 11:12
PROVIDERS: ADMIT Family Medicine; ATTEND Family Medicine
PROC: 4A033R1 Measurement of Arterial Saturation, Peripheral, Percutaneous Approach (ICD-10-PCS; principal; 2019-01-11)
DX: I11.0 Hypertensive heart disease with heart failure (principal); C81.90 Hodgkin lymphoma, unspecified, unspecified site; I50.23 Acute on chronic systolic (congestive) heart failure; E78.5 Hyperlipidemia, unspecified; I25.10 Atherosclerotic heart disease of native coronary artery without angina pectoris; K21.9 Gastro-esophageal reflux disease without esophagitis; M81.0 Age-related osteoporosis without current pathological fracture; M40.209 Unspecified kyphosis, site unspecified; R13.10 Dysphagia, unspecified; F32.9 Major depressive disorder, single episode, unspecified; R32 Unspecified urinary incontinence; Z91.14 Patient's other noncompliance with medication regimen; I69.392 Facial weakness following cerebral infarction; I69.328 Other speech and language deficits following cerebral infarction; I69.391 Dysphagia following cerebral infarction; I69.334 Monoplegia of upper limb following cerebral infarction affecting left non-dominant side; E11.51 Type 2 diabetes mellitus with diabetic peripheral angiopathy without gangrene; M19.90 Unspecified osteoarthritis, unspecified site; I25.5 Ischemic cardiomyopathy; E03.9 Hypothyroidism, unspecified; F41.9 Anxiety disorder, unspecified; Z95.5 Presence of coronary angioplasty implant and graft; Z86.718 Personal history of other venous thrombosis and embolism; Z79.82 Long term (current) use of aspirin; Z95.810 Presence of automatic (implantable) cardiac defibrillator
CPT/HCPCS: 36415; 36600; 71045; 80053; 80162; 82550; 82553; 82803; 83540; 83735; 83880; 84443; 84484; 85025; 85610; 85730; 93005; 94640; 94664; 96374; J1940

== ENCOUNTER 2019-02-10 22:23 | Inpatient (IN) | payer MEDICARE, OTHER ==
[~2019-02-10] VITALS: Ht 157.5 cm; Wt 66.5 kg
[~2019-02-10 22:23] MED LIST changes: -PEMB100V IV
[2019-02-11] VITALS (14 sets, daily range): BP systolic 99–141; BP diastolic 58–80; PULSE 77–123; RESP 16–20; Ht 157.5 cm; Wt 66.5 kg
--- NOTE | 2019-02-11 01:22 | ERD ---
ER Documentation Chief Complaint Chief Complaint SOB x 10 days on//off; takes lasix; on chemo; abd pain HPI This 73-year-old female with a prior history of lymphoma, prior history of CHF, history of chronic abdominal pain, who presents for evaluation of shortness of breath on and off for the last 10 days. She had an admission last month, for similar presentation, she is currently taking Lasix at 40 mg twice daily. She endorses generalized body aches, majority of history is obtained from her son. There are no alleviating or aggravating factors, she has not a fever. ROS All systems reviewed and are negative except as per history of present illness. Medications Home Meds Active Scripts Ipratropium-Albuterol (Ipratropium-Albuterol) 0.5-3 Mg/3 Ml Ampul.neb, 3 ML HHN Q4H RESP THERAPY PRN for SHORTNESS OF BREATH for 30 Days, #90 Prov:PEDRO KRUSE MD 09/16/18 Albuterol Sulfate* (Albuterol Sulfate* Neb) 0.083%-3 Ml Neb, 2.5 MG HHN Q8H RESP THERAPY for 90 Days, #90 CAP 2 Refills Prov:PEDRO KRUSE MD 09/16/18 Dexlansoprazole (Dexilant) 60 Mg Cap., 60 MG PO DAILY, #30 CAP Prov:PEDRO KRUSE MD 09/16/18 Fenofibrate* (Fenofibrate*) 200 Mg Cap, 200 MG PO DAILY for 30 Days, #30 CAP Prov:PEDRO KRUSE MD 09/16/18 Levothyroxine Sodium* (Levothyroxine Sodium*) 100 Mcg Tablet, 100 MCG PO BEFORE BREAKFAST, #30 TAB Prov:PEDRO KRUSE MD 09/16/18 Furosemide* (Furosemide*) 40 Mg Tablet, 40 MG PO DAILY for 30 Days, #30 TAB Prov:PEDRO KRUSE MD 09/16/18 Spironolactone* (Aldactone*) 25 Mg Tablet, 25 MG PO DAILY, #30 TAB Prov:PEDRO KRUSE MD 09/16/18 Megestrol Acetate* (Megace*) 40 Mg Tab, 40 MG PO BID for 60 Days, #30 TAB Prov:PEDRO KRUSE MD 09/16/18 Digoxin* (Lanoxin*) 0.125 Mg Tablet, 0.125 MG PO DAILY for 30 Days, #30 TAB Prov:PEDRO KRUSE MD 09/16/18 Potassium Chloride* (Potassium Chloride*) 8 Meq Capsule.er, 8 MEQ PO DAILY for 30 Days, #30 CAP Prov:PEDRO KRUSE MD 09/16/18 Isosorbide Mononitrate* (Isosorbide Mononitrate*) 30 Mg Tab.er.24h, 30 MG PO D AILY for 30 Days, #30 TAB Prov:PEDRO KRUSE MD 09/16/18 Clopidogrel Bisulfate (Clopidogrel) 75 Mg Tablet, 75 MG PO DAILY, #30 TAB Prov:PEDRO KRUSE MD 09/16/18 Acetaminophen* (Tylenol*) 500 Mg Tab, 500 MG PO Q8 PRN for pain and temp. more then 99F for 30 Days, #90 TAB Prov:PEDRO KRUSE MD 09/16/18 Metoprolol Tartrate* (Lopressor*) 50 Mg Tab, 50 MG PO BID, #60 TAB Prov:PEDRO KRUSE MD 09/16/18 Folic Acid* (Folic Acid*) 1 Mg Tablet, 1 MG PO DAILY for 30 Days, #30 TAB Prov:PEDRO KRUSE MD 09/16/18 Losartan-Hydrochlorothiazide (Losartan-HCTZ) 100-25 Mg Tab, 1 TAB PO DAILY for 30 Days, #30 TAB Prov:PEDRO KRUSE MD 09/16/18 Aspirin* (Aspirin* Chew) 81 Mg Tab.chew, 81 MG PO DAILY for 30 Days, #30 TAB.CHEW Prov:PEDRO KRUSE MD 09/16/18 Reported Medications Ergocalciferol* (Drisdol* (Vitamin D2)) 50,000 Unit Capsule, 05859 UNIT PO Q7D for 30 Days, #4 CAP 08/04/16 Allergies Allergies: Coded Allergies: vancomycin (Verified Allergy, Mild, REDNESS AND ITCHING, 03/20/18) PMhx/Soc History of Surgery: No Anesthesia Reaction: No Hx 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 Disorder: No Hx Respiratory Disorders: No Hx Cardiac Disorders: No Hx Psychiatric Problems: No Hx Alcohol Use: No Hx Substance Use: No Hx Tobacco Use: No Smoking Status: Unknown if ever smoked Physical Exam Vitals Vital Signs Date Temp Pulse Resp B/P (MAP) Pulse Ox O2 O2 Flow FiO2 Time Delivery Rate 02/10/19 97.9 114 22 124/91 99 Room Air 23:15 (102) 02/10/19 99.5 116 20 123/80 100 22:39 (94) Physical Exam Const: Elderly appearing female, who appears chronically ill, on nasal cannula Head: Atraumatic Eyes: Normal Conjunctiva ENT: Normal External Ears, Nose and Mouth. Neck: Full range of motion. No meningismus. Resp: Crackles noted bilaterally, no wheezes Cardio: Regular rate and rhythm, no murmurs Abd: Soft, non tender, non distended. Normal bowel sounds Skin: No petechiae or rashes Back: No midline or flank tenderness Ext: No cyanosis, or edema Neur: Awake and alert Psych: Normal Mood and Affect Result Diagram: 02/10/19 2320 02/10/19 2320 Results 24 hrs Laboratory Tests Test 02/10/19 23:20 White Blood Count 9.2 10^3/ul Red Blood Count 3.83 10^6/ul Hemoglobin 11.1 g/dl Hematocrit 36.2 % Mean Corpuscular Volume 94.5 fl Mean Corpuscular Hemoglobin 29.0 pg Mean Corpuscular Hemoglobin Concent 30.7 g/dl Red Cell Distribution Width 17.7 % Platelet Count 274 10^3/UL Mean Platelet Volume 11.7 fl Immature Granulocytes % 0.300 % Neutrophils % 76.9 % Lymphocytes % 11.6 % Monocytes % 9.9 % Eosinophils % 0.9 % Basophils % 0.4 % Nucleated Red Blood Cells % 0.0 /100WBC Immature Granulocytes # 0.030 10^3/ul Neutrophils # 7.0 10^3/ul Lymphocytes # 1.1 10^3/ul Monocytes # 0.9 10^3/ul Eosinophils # 0.1 10^3/ul Basophils # 0.0 10^3/ul Nucleated Red Blood Cells # 0.0 10^3/ul Prothrombin Time 14.7 Sec Prothrombin Time Ratio 1.1 INR International Normalized Ratio 1.14 Activated Partial Thromboplast Time 28.7 Sec Sodium Level 141 mmol/L Potassium Level 4.8 mmol/L Chloride Level 105 mmol/L Carbon Dioxide Level 21 mmol/L Anion Gap 15 Blood Urea Nitrogen 20 mg/dl Creatinine 0.82 mg/dl Est Glomerular Filtrat Rate mL/min mL/min Glucose Level 143 mg/dl Calcium Level 9.5 mg/dl Total Bilirubin 0.4 mg/dl Direct Bilirubin 0.00 mg/dl Indirect Bilirubin 0.4 mg/dl Aspartate Amino Transf (AST/SGOT) 26 IU/L Alanine Aminotransferase (ALT/SGPT) 19 IU/L Alkaline Phosphatase 50 IU/L Troponin I 0.032 ng/ml B-Type Natriuretic Peptide 19329 PG/ML Total Protein 7.7 g/dl Albumin 4.3 g/dl Globulin 3.40 g/dl Albumin/Globulin Ratio 1.26 Current Medications Medications Dose Sig/Rafa Start Time Status Last (Trade) Ordered Route PRN Stop Time Admin Dose Reason Admin Furosemide 40 mg ONCE ONCE 02/11/19 DC 02/11/19 (Lasix) IV 01:30 02/11/19 01:32 01:31 Procedures/MDM This 73-year-old female with prior history of lymphoma, prior history of CHF presents for evaluation of shortness of breath. On exam, patient appears somewhat agitated, but not appear in acute respiratory distress, she remains stable on nasal cannula, her chest x-ray appears to show signs of volume overload, that she will be admitted for acute CHF exacerbation. She has no fever, and at this point I do not suspect an infection, she will be given IV diuresis. Her EKG showed no evidence of acute ischemia. EKG: Rate/Rhythm: Sinus tachycardia QRS, ST, T-waves: No changes consistent w/ acute ischemia Impression: No evidence of ischemia or arrhythmia Accepting Care Team: Current data and ongoing care discussed. Primary: Frida Consulting: None Outstanding Data: none Departure Diagnosis: Primary Impression: Shortness of breath Additional Impressions: CHF (congestive heart failure) Heart failure type: unspecified Heart failure chronicity: unspecified Qualified Codes: I50.9 - Heart failure, unspecified Lymphoma Lymphoma type: unspecified type Lymphoma site: unspecified region Qualified Codes: C85.90 - Non-Hodgkin lymphoma, unspecified, unspecified site Condition: Stable ABIODUN DAVID MD Feb 11, 2019 01:22
[2019-02-11] MEDS ORDERED: FUROSEMIDE 40 MG INJ IV ONE (01:30)
[2019-02-11] MEDS ORDERED: LORA0.5T PO (04:12)
[2019-02-11] MEDS ORDERED: LEVO125T7 PO (04:12)
[2019-02-11] MEDS ORDERED: MAGN400T28 PO (04:12)
[2019-02-11] MEDS ORDERED: ESOM40CA PO (04:12)
[2019-02-11] MEDS ORDERED: ONDA4TAB95 PO (04:12)
[2019-02-11] MEDS ORDERED: LEVALBUTEROL (NEB) 0.63 MG/3 ML AMP HHN PRN (04:30)
[2019-02-11] MEDS ORDERED: LORAZEPAM 0.5 MG TAB PO PRN (04:30)
[2019-02-11] MEDS ORDERED: ONDANSETRON 4 MG INJ IV PRN (04:30)
[2019-02-11] MEDS ORDERED: IPRATROPIUM (NEB) 0.5 MG/2.5 ML AMP HHN PRN (04:30)
[2019-02-11] MEDS: PANTOPRAZOLE (EC) 40 MG TAB PO SCH (06:57)
[2019-02-11] MEDS: LEVOTHYROXINE 125 MCG TAB PO SCH (06:57)
[2019-02-11] MEDS: FUROSEMIDE 40 MG INJ IV SCH ×2 (06:58→18:18)
[2019-02-11] MEDS: HYDROCHLOROTHIAZIDE 25 MG TAB PO SCH (11:18)
[2019-02-11] MEDS: DIGOXIN 0.125 MG TAB PO SCH (11:19)
[2019-02-11] MEDS: LOSARTAN 50 MG TAB PO SCH (11:19)
[2019-02-11] MEDS: SPIRONOLACTONE 25 MG TAB PO SCH (11:19)
[2019-02-11] MEDS: POTASSIUM CHLORIDE (SR) 8 MEQ CAP PO SCH (11:19)
[2019-02-11] MEDS: CLOPIDOGREL 75 MG TAB PO SCH (11:19)
[2019-02-11] MEDS: ISOSORBIDE MONONITRATE(SR)30 MG TAB PO SCH (11:20)
[2019-02-11] MEDS: FENOFIBRATE 145 MG TAB PO SCH (11:20)
[2019-02-11] MEDS: METOPROLOL 50 MG TAB PO SCH ×2 (11:20→20:25)
[2019-02-11] MEDS: ASPIRIN 81 MG TAB PO SCH (11:20)
[2019-02-11] MEDS: MEGESTROL 40 MG TAB PO SCH ×2 (11:22→20:25)
[2019-02-11] MEDS: ENOXAPARIN 40 MG/0.4 ML SYG SC SCH (11:24)
[2019-02-11] MEDS: MAGNESIUM OXIDE 400 MG TAB PO SCH (11:27)
[2019-02-11] MEDS: DIGOXIN 500 MCG INJ IV SCH ×2 (12:42→18:17)
[2019-02-11] MEDS ORDERED: POTASSIUM CHLORIDE (SR) 10 MEQ TAB PO ONE (13:00)
[2019-02-11] MEDS ORDERED: METOPROLOL (XL) 50 MG TAB PO ONE (13:00)
--- NOTE | 2019-02-11 14:51 | CONS ---
DATE OF ADMISSION: 02/11/2019 DATE OF CONSULTATION: 02/11/2019 TYPE OF CONSULTATION: Cardiology. REASON FOR CONSULTATION: Congestive heart failure exacerbation. REQUESTING PHYSICIAN: Pedro Kruse MD HISTORY OF PRESENT ILLNESS: Ms. Gracia is a 73-year-old female, well known to myself as primary office patient with history of systolic congestive heart failure, last known left ventricular ejectio n fraction approximately 25% to 30% by echo in 08/2018, severe mitral regurgitation, now status post mitral valve e-clip on 11/2018, non-Hodgkin lymphoma with ongoing chemotherapy, history of PTCA and s tent placement most recently to LAD in 07/2017, hypertension, anemia, nonsustained ventricular tachyc ardia status post ICD, who presents with shortness of breath and generalized weakness. Upon arrival, temperature of 99.5, blood pressure 122/80, pulse 116, respiratory rate 20, satting 100%. [facility] are notable for white blood cell count of 9.2, hemoglobin 11.1, platelet count of 274, a so dium of 141, potassium 4.8, creatinine 0.8, BUN 20. Troponin negative. BNP 11,200, TSH 3.4. INR 1. 1. Tox screen is negative. The patient underwent chest x-ray revealing with moderate failure, new left anterior chest wall single chamber pacemaker lead seen without evidence of complication. T he patient's electrocardiogram revealed sinus tachycardia at 116, normal axis, normal intervals with nonspecific ST-T wave abnormalities diffusely. The patient was subsequently admitted to the floor an d since admit to the floor, continued to have generalized weakness and a second troponin return negat bo, 2 negative troponins. PAST MEDICAL HISTORY: As above in HPI. MEDICATIONS CURRENTLY IN HOSPITAL: 1. Aspirin 81 mg daily. 2. Plavix 75 mg daily. 3. Digoxin 0.125 mg daily. 4. Imdur 30 mg daily. 5. Metoprolol 50 mg p.o. b.i.d. 6. Aldactone 25 mg daily. 7. TriCor 145 mg daily. 8. Cozaar 100 mg daily. 9. Lovenox 40 mg subcutaneously daily. 10. Hydrochlorothiazide 25 mg daily. 11. Lasix 40 mg IV b.i.d. ALLERGIES: VANCOMYCIN. SOCIAL HISTORY: No current tobacco, EtOH or illicit drug use. FAMILY HISTORY: No history of sudden cardiac or early CAD. REVIEW OF SYSTEMS: As above in HPI. CONSTITUTIONAL: No fevers, chills. PULMONARY: Positive shortness of breath. CARDIOVASCULAR: No current chest pain. GASTROINTESTINAL: No vomiting. GENITOURINARY: No hematuria. MUSCULOSKELETAL: Degenerative joint disease. PSYCHIATRIC: The patient denies depression. NEUROLOGIC: No documented history of CVA. ENDOCRINE: No documented history of diabetes mellitus. PHYSICAL EXAMINATION: VITAL SIGNS: Temperature of 99.5, blood pressure 108/60, pulse 106, respiratory rate 20, satting 98% . GENERAL: The patient is alert, awake, complaining of generalized weakness and shortness of breath. NECK: JVP is approximately 9 to 10 cm of water. CHEST: Decreased breath sounds at bases bilaterally. HEART: Tachycardic, regular rhythm. Normal S1, S2. Laterally displaced PMI. ABDOMEN: Positive bowel sounds, soft. EXTREMITIES: No significant pitting edema, just trace at the ankles. Difficult to palpate distal pu lses bilaterally, posterior tibial. LABORATORY DATA: Most recently from today, sodium 141, potassium 3.8, creatinine 0.7, BUN 20. White blood cell count of 8.7, hemoglobin 11.1, platelet count 256. IMAGING STUDIES: As above in HPI. No further imaging studies for my review at this time. ELECTROCARDIOGRAM: As above in HPI. No further electrocardiograms for my review at this time. IMPRESSION: 1. Congestive heart failure exacerbation, systolic, acute on chronic. 2. Shortness of breath secondary to #1. 3. Cardiomyopathy with decreased left ventricular ejection fraction last approximately 25% to 30%. 4. Mitral regurgitation, severe, status post mitral e-clip on 11/2018. 5. Hypertension, reasonable control. 6. Non-Hodgkin's lymphoma, undergoing chemotherapy at this time. 7. Anemia, mild. 8. History of PTCA and stent placements, most recently to LAD in 07/2017. RECOMMENDATIONS: 1. At this time, we would maintain the patient on telemetry monitoring to follow rhythm and rate french sely. 2. We will complete the patient's rule out for myocardial infarction to assure the patient's coughin g symptoms are not the result of and not resulted in acute coronary syndrome such as acute myocardial infarction. 3. Continue the patient's current Aldactone and Lasix diuresis. 4. Continue the patient's beta mary which should be Toprol longer acting version; therefore we wi ll change this. 5. Follow the patient's volume status closely. 6. We will continue the patient's digoxin and check digoxin level and found to be low likelihood to give the patient IV push partial load to improve contractility. 7. Ambulate the patient if possible. 8. Ongoing hematology/oncology evaluation. Thank you for allowing me to take part to take part in the care of this patient. I will continue to follow her very closely with you with further recommendations will be made as the patient progresses her inpatient hospital clinical course. Dictated By: ARIEL ALVAREZ/CECILIA Conf#: [id number] DID#: [id number] CC: PEDRO KRUSE MD;*End*
--- NOTE | 2019-02-11 15:56 | HP ---
Date/Time of Note Date/Time of Note DATE: 02/11/19 TIME: 15:54 Assessment/Plan VTE Prophylaxis Risk score (from Nsg)>0 risk: 6 SCD applied (from Ns): Yes SCD contraindicated: low risk/ambulating Pharmacological prophylaxis: LMWH Lines/Catheters IV Catheter Type (from [facility]): [place] [employer] line still needed: No Urinary Cath still in place: No Reason Cath still needed: urinary retention Assessment/Plan Assessment/Plan 1. Severe respiratory distress with worsening of wheezing and inability to sleep. 2.IHD angina, HX of recent PTCA with one stent and 3 balloon dilatation of narrow coronary arteries(; according to the daughter). 3. Dysphagia to solids and sometimes to liquids. 4. Pulmonary edema by x-ray with wheezing on admission, improved after lasix. 5. History of Hodgkin lymphoma- s/p chemotherapy and hydration 10 days ago. 6. Osteoarthritis with pain syndrome 7. Anxiety disorder. 8. Depression with grief reaction-s/p loss of . 9. Urinary incontinence. 10. Osteoporosis. 11. Kyphosis. 12. Postmenopausal syndrome. 13. Anemia with nl iron. 14. Brain atrophy on CT. 15. Left sphenoid sinusitis on CT. 16. Left ventricular hypertrophy. 17. Urinary incontinence. 18.Cerebrovascular accident, with left facial drooling, left facial weakness, with slurred speech and dysphagia. Mild left upper extremity weakness.mostly corrected. 19. Hypertension, now normotensive.Cardiomegaly on cxr 20. Status post left subclavian area pacemaker implantation about 3 months ago. 21. Status post mitral valve endocardial manipulation with stapling of the valves with good clinical results. 22. Recurrent episodes of V. tach and SVT; placed on the monitor but cardiology consult. 20.Medication noncompliance. Result Diagram: 02/11/19 0444 02/11/194 Results 24hrs Laboratory Tests Test 02/10/19 23:20 02/11/19 04:44 02/11/19 05:40 White Blood Count 9.2 # 8.7 Red Blood Count 3.83 L 3.85 L Hemoglobin 11.1 L 11.1 L Hematocrit 36.2 L 36.1 L Mean Corpuscular Volume 94.5 93.8 Mean Corpuscular Hemoglobin 29.0 28.8 L Mean Corpuscular Hemoglobin Concent 30.7 L 30.7 L Red Cell Distribution Width 17.7 H 17.8 H Platelet Count 274 # 256 Mean Platelet Volume 11.7 H 11.6 H Immature Granulocytes % 0.300 0.300 Neutrophils % 76.9 80.0 H Lymphocytes % 11.6 L 11.3 L Monocytes % 9.9 7.1 Eosinophils % 0.9 1.0 Basophils % 0.4 0.3 Nucleated Red Blood Cells % 0.0 0.0 Immature Granulocytes # 0.030 0.030 Neutrophils # 7.0 6.9 Lymphocytes # 1.1 1.0 Monocytes # 0.9 0.6 Eosinophils # 0.1 0.1 Basophils # 0.0 0.0 Nucleated Red Blood Cells # 0.0 0.0 Prothrombin Time 14.7 Prothrombin Time Ratio 1.1 INR International Normalized Ratio 1.14 Activated Partial Thromboplast Time 28.7 Sodium Level 141 141 Potassium Level 4.8 3.8 Chloride Level 105 104 Carbon Dioxide Level 21 22 Anion Gap 15 H 15 H Blood Urea Nitrogen 20 20 Creatinine 0.82 0.74 Est Glomerular Filtrat Rate mL/min Glucose Level 143 194 Calcium Level 9.5 9.2 Total Bilirubin 0.4 0.3 Direct Bilirubin 0.00 0.00 Indirect Bilirubin 0.4 0.3 Aspartate Amino Transf (AST/SGOT) 26 22 Alanine Aminotransferase (ALT/SGPT) 19 20 Alkaline Phosphatase 50 61 Troponin I 0.032 0.045 B-Type Natriuretic Peptide 70155 H Total Protein 7.7 7.1 Albumin 4.3 4.1 Globulin 3.40 H 3.00 Albumin/Globulin Ratio 1.26 1.36 D-Dimer 1493.96 #H D-Dimer Comment Lactic Acid Level 1.7 Magnesium Level 2.1 Thyroid Stimulating Hormone (TSH) 3.460 Digoxin Level < 0.4 L Urine Color YELLOW Urine Clarity CLEAR Urine pH 5 Urine Specific [place]uck[place] 1.015 Urine Ketones NEGATIVE Urine Nitrite NEGATIVE Urine Bilirubin NEGATIVE Urine Urobilinogen NEGATIVE Urine Leukocyte Esterase NEGATIVE Urine Microscopic RBC 0 Urine Microscopic WBC 1 Urine Bacteria FEW A Urine Hemoglobin NEGATIVE Urine Glucose NEGATIVE Urine Total Protein 1+ Urine Opiates Screen Negative Urine Barbiturates Negative Urine Amphetamines Screen Negative Urine Benzodiazepines Screen Negative Urine Cocaine Screen Negative Urine Cannabinoids Negative HPI/ROS Admit Date/Time Admit Date/Time Feb 11, 2019 at 01:25 Hx of Present Illness Severe shortness of breath feeling of suffocation. They went to chemotherapy about 10 days ago. I think everything started from there. Otherwise I do I will doing fine. Yesterday he was having a fast heartbeat along with a severe shortness of breath. My children insisted with to come to the hospital now I feel better. I confess I did not drink too much water by by discontinuing I do not know. ROS Subjective hx not possible: pt critical, pt critical status Constitutional: diaphoresis, fatigue, nausea, poor po; No no complaints, No improved, No chills, No disoriented, No febrile, No weight change, No other Eyes: visual change ENT: No no complaints, No bleeding, No pain, No congestion, No discharge, No dysphagia, No sore throat, No other Respiratory: cough, pleuritic pain, sputum; No no complaints, No pain, No shortness of breath, No wheezing, No other Cardiovascular: chest pain, edema, lightheadedness, orthopenea; No no complaints, No palpitations, No paroxysmal nocturnal dyspnea, No other Gastrointestinal: constipation, decreased appetite, flatus Genitourinary: dysuria, flank pain; No no complaints, No bleeding, No discharge, No hematuria, No other Musculoskeletal: back pain, bone/joint pain, neck pain; No no complaints, No restricted range of motion, No swelling, No other Skin: pruritis, rash; No no complaints, No bruising, No erythema, No laceration, No skin lesions, No other Neurologic: dizziness; No no complaints, No confusion, No focal-weakness, No headache, No syncope, No seizure, No other Endocrine: dry skin; No no complaints, No polyuria, No polydypsia, No temp intolerance, No weight change, No other Psychological: anxiety, confusion, depression; No no complaints, No nl mood/affect, No suicidal, No other PMH/Family/Social Past Medical History Medical History: angina, congestive heart failure, coronary artery disease, diabetes, diverticulitis, GERD, GI bleed, hepatitis, high cholesterol, hypertension, hypothyroid, irritable bowel syndrome, peptic ulcer disease, renal disease, urinary tract infection Medications Current Medications Acetaminophen (Tylenol Tab) 500 mg Q8 PRN PO pain and temp. more then 99F; Start 02/11/19 at 04:30 Aspirin (Aspirin) 81 mg DAILY PO Last administered on 02/11/19 11:20; Admin Dose 81 MG; Start 02/11/19 at 09:00 Clopidogrel Bisulfate (plaVIX) 75 mg DAILY PO Last administered on 02/11/19 11:19; Admin Dose 75 MG; Start 02/11/19 at 09:00 Digoxin (Digoxin) 0.125 mg DAILY PO Last administered on 02/11/19 11:19; Admin Dose 0.125 MG; Start 02/11/19 at 09:00 Isosorbide Mononitrate (Imdur) 30 mg DAILY PO Last administered on 02/11/19 11:20; Admin Dose 30 MG; Start 02/11/19 at 09:00 Levothyroxine Sodium (Synthroid) 125 mcg BEFORE BREAKFAST PO Last administered on 02/11/19 06:57; Admin Dose 125 MCG; Start 02/11/19 at 07:00 Lorazepam (Ativan) 0.5 mg Q8 PRN PO ANXIETY; Start 02/11/19 at 04:30 Magnesium Oxide (Mag-Ox 400) 400 mg DAILY PO Last administered on 02/11/19 11:27; Admin Dose 400 MG; Start 02/11/19 at 09:00 Megestrol Acetate (Megace) 40 mg BID PO Last administered on 02/11/19 11:22; Admin Dose 40 MG; Start 02/11/19 at 09:00 Metoprolol Tartrate (Lopressor) 50 mg BID PO Last administered on 02/11/19 11:20; Admin Dose 50 MG; Start 02/11/19 at 09:00; Stop 02/11/19 at 21:30 Potassium Chloride (Micro-K) 8 meq DAILY PO Last administered on 02/11/19 11:19; Admin Dose 8 MEQ; Start 02/11/19 at 09:00 Spironolactone (Aldactone) 25 mg DAILY PO Last administered on 02/11/19 11:19; Admin Dose 25 MG; Start 02/11/19 at 09:00 Pantoprazole (Protonix Tab) 40 mg DAILY@06 PO Last administered on 02/11/19 06:57; Admin Dose 40 MG; Start 02/11/19 at 06:00 Fenofibrate (Tricor) 145 mg DAILY PO Last administered on 02/11/19 11:20; Admin Dose 145 MG; Start 02/11/19 at 09:00 Losartan Potassium (Cozaar) 100 mg DAILY PO Last administered on 02/11/19 11:19; Admin Dose 100 MG; Start 02/11/19 at 09:00 Furosemide (Lasix) 40 mg BID DIURETICS IV Last administered on 02/11/19at 06:58; Admin Dose 40 MG; Start 02/11/19 at 06:00 Levalbuterol (Xopenex Neb) 0.63 mg Q4H RESP THERAPY PRN HHN WHEEZING AND SOB Last administered on 02/11/19 07:08; Admin Dose 0.63 MG; Start 02/11/19 at 04:30 Ipratropium [place] (Atrovent 0.02% (Neb)) 0.5 mg Q4H RESP THERAPY PRN HHN WHEEZING AND SOB Last administered on 02/11/19at 07:08; Admin Dose 0.5 MG; Start 02/11/19 at 04:30 Enoxaparin Sodium (Lovenox) 40 mg DAILY SC Last administered on 02/11/19at 11:24; Admin Dose 40 MG; Start 02/11/19 at 09:00 Ondansetron HCl (Zofran Inj) 4 mg Q6H PRN IV NAUSEA AND/OR VOMITING; Start 02/11/19 at 04:30 Hydrochlorothiazide (Hydrochlorothiazide) 25 mg DAILY PO Last administered on 02/11/19 11:18; Admin Dose 25 MG; Start 02/11/19 at 09:00 Digoxin (Digoxin) 250 mcg Q6H IV Last administered on 02/11/19at 12:42; Admin Dose 250 MCG; Start 02/11/19 at 12:30; Stop 02/11/19 at 18:31 Coded Allergies: vancomycin (Verified Allergy, Mild, REDNESS AND ITCHING, 03/20/18) Past Surgical History Past Surgical Hx: angioplasty Family History Significant Family History: no pertinent family hx Social History Alcohol Use: none Smoking Status: Never smoker Drug Use: none Exam/Review of Systems Vital Signs Vitals Vital Signs Date Temp Pulse Resp B/P (MAP) Pulse Ox O2 O2 Flow FiO2 Time Delivery Rate 02/11/19 98.0 112 112/69 97 Nasal 2.0 12:00 (83) Cannula 02/11/19 20 11:20 Exam Constitutional: alert, oriented, well developed, distress, frail; No non-verbal, No other Psych: anxiety, confusion, depression; No no complaints, No nl mood/affect, No suicidal, No other Head: normocephalic, atraumatic; No lacerations, No hematomas, No other Eyes: EOMI, nl lids, PERRL; No nl conjunctiva, No nl sclera, No icteric, No fundi, disc, No other ENMT: tympanic membranes; No nl external ears & nose, No nl lips & teeth, No nl nasal mucosa & septum, No mucosa pink and moist, No intubated, No other Neck: jvd, bruits, thyromegaly, nuchal rigidity; No supple, No non-tender, No masses, No other Respiratory: normal air movement, crackles/rales, diminished breath sounds, intercostal retraction, tactile fremitus; No clear to auscultation, No congested cough, No labored breathing, No respirations, No wheezing, No other Cardiovascular: bruits, edema, jugular venous distention (JVD), systolic murmur; No regular rate and rhythm, No nl pulses, No diastolic murmur, No gallop, No irregular rhythm, No murmurs/extra sounds, No rub, No S3, No S4, No other Gastrointestinal: non-tender, bowel sounds, distended; No soft, No nl liver, spleen, No ascites, No firm, No hepatomegaly, No mass, No rebound or guarding, No splenomegaly, No surgical scars, No tender, No other Genitourinary - Female: nl adnexae, nl external genitalia; No CMT, No CVA tenderness, No uterus, No other Musculoskeletal: joint tenderness, muscle tone, muscle weakness Extremities: edema; No normal pulses, No calf tenderness, No cyanosis, No clubbing, No pitting pedal edema, No palpable cord, No tenderness, No other 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: VAT OVERHAULER II-XII intact, confused, numbness; No nl mental status, No nl speech, No nl strength, No DTR's symmetric, No focal weakness, No lethargic, No reflexes, No unresponsive, No other Skin: rash or lesions; No nl turgor, No diaphoresis, No ecchymosis, No laceration, No puncture, No other PILOSSYANPEDRO STEWARD Feb 11, 2019 15:55
--- NOTE | 2019-02-11 18:40 | RADRPT ---
Report amended on 2019-02-15 at 5:13 PM: Added/Modified: Left Ventricle: [MODIFIED] Ejection fraction is visually estimated at : 20-25 % Conclusions: [MODIFIED TEXT] Left Ventricular Findings: Normal left ventricular wall thickness. Severe enlargement of left ventricle cavity. Severe left ventricular systolic dysfunction. Ejection fraction is visually estimated at 20-25 %. Tissue Doppler/Mitral Doppler indices are consistent with impaired relaxation (Stage I diastolic dysfunction). [MODIFIED TEXT] Conclusions: Normal left ventricular wall thickness. Severe enlargement of left ventricle cavity. Severe left ventricular systolic dysfunction. Ejection fraction is visually estimated at 20-25 %. Tissue Doppler/Mitral Doppler indices are consistent with impaired relaxation (Stage I diastolic dysfunction). There is mild enlargement of left atrium. Mitral valve leaflets appear moderately thickened s/p repair mitral david e clip. Moderate mitral leaflet calcification. Mild mitral annular calcification. Mild mitral valve regurgitation. Aortic valve not well visualized but no hemodynamically significant aortic stenosis by doppler. Aortic cusps appear mildly calcified. Trace aortic valve regurgitation. Normal appearance of the tricuspid valve. Estimated peak PA systolic pressure 63 mmHg. There is mild to moderate tricuspid regurgitation. Trivial pericardial effusion. Electronically Signed by: Johann Alvarez 2019-02-15 17:13:40 PDT
[2019-02-12] VITALS (11 sets, daily range): BP systolic 87–125; BP diastolic 51–70; PULSE 63–100; RESP 16–18
[2019-02-12] MEDS: FUROSEMIDE 40 MG INJ IV SCH ×3 (06:00→18:00)
[2019-02-12] MEDS: PANTOPRAZOLE (EC) 40 MG TAB PO SCH (06:15)
[2019-02-12] MEDS: LEVOTHYROXINE 125 MCG TAB PO SCH (06:15)
[2019-02-12] MEDS: DIGOXIN 0.125 MG TAB PO SCH (08:49)
[2019-02-12] MEDS: ASPIRIN 81 MG TAB PO SCH (08:49)
[2019-02-12] MEDS: HYDROCHLOROTHIAZIDE 25 MG TAB PO SCH (08:49)
[2019-02-12] MEDS: POTASSIUM CHLORIDE (SR) 8 MEQ CAP PO SCH (08:50)
[2019-02-12] MEDS: MAGNESIUM OXIDE 400 MG TAB PO SCH (08:50)
[2019-02-12] MEDS: ISOSORBIDE MONONITRATE(SR)30 MG TAB PO SCH (08:50)
[2019-02-12] MEDS: CLOPIDOGREL 75 MG TAB PO SCH (08:50)
[2019-02-12] MEDS: SPIRONOLACTONE 25 MG TAB PO SCH (08:51)
[2019-02-12] MEDS: ENOXAPARIN 40 MG/0.4 ML SYG SC SCH (08:57)
[2019-02-12] MEDS: FENOFIBRATE 145 MG TAB PO SCH (08:58)
[2019-02-12] MEDS: LOSARTAN 50 MG TAB PO SCH (08:58)
[2019-02-12] MEDS: MEGESTROL 40 MG TAB PO SCH ×2 (08:58→20:14)
--- NOTE | 2019-02-12 09:10 | CONS ---
Consult Date/Type/Reason Admit Date/Time Feb 11, 2019 at 01:25 Initial Consult Date Date/Time of Note DATE: 02/12/19 TIME: 09:07 Subjective NO acute events - still mild SOB - refusing therapy now- -will encourage compliance. ROS: No fever, no chills, no nausea, no vomiting, no diarrhea/constipation No recent weight changes No chest pain, no PND, no orthopnea - mild SOB, refusing Rx No dizziness, blurred vision No thirst, no heat or cold intolerance Objective Vitals Vital Signs Date Temp Pulse Resp B/P (MAP) Pulse Ox O2 O2 Flow FiO2 Time Delivery Rate 02/12/19 93 08:31 02/12/19 98.5 18 111/63 94 07:25 (79) 02/12/19 Room Air 04:37 02/11/19 2.0 20:15 Intake and Output 02/11/19 02/11/19 02/12/19 1515:00 23:00 07:00 IntakeIntake Total 450 ml BalanceBalance 450 ml Exam General: WN/WD/NAD, AOx 2-3 Psych HEENT: Unicetric/atraumatic/EOMI (follow commands) NECK: JVD elevated, no thyromegaly Lymph: no lymphadenopathy HEART: regular with no S3, II/ systolic murmur at apex, PMI L LUNGS: Coarse sounds ABD: soft, NT, ND, +BS : Intact Neuro: non focal SKIN: chronic changes EXT: mild edema Results/Medications Result Diagram: 02/11/194 02/11/194 Results 24 hrs Laboratory Tests Test 02/11/19 18:19 02/12/19 05:23 Troponin I 0.028 0.031 Home Meds Active Scripts Ipratropium-Albuterol (Ipratropium-Albuterol) 0.5-3 Mg/3 Ml Ampul.neb, 3 ML HHN Q4H RESP THERAPY PRN for SHORTNESS OF BREATH for 30 Days, #90 Prov:PEDRO KRUSE MD 09/16/18 Albuterol Sulfate* (Albuterol Sulfate* Neb) 0.083%-3 Ml Neb, 2.5 MG HHN Q8H RESP THERAPY for 90 Days, #90 CAP 2 Refills Prov:PEDRO KRUSE MD 09/16/18 Fenofibrate* (Fenofibrate*) 200 Mg Cap, 200 MG PO DAILY for 30 Days, #30 CAP Prov:PEDRO KRUSE MD 09/16/18 Furosemide* (Furosemide*) 40 Mg Tablet, 40 MG PO DAILY for 30 Days, #30 TAB Prov:PEDRO KRUSE MD 09/16/18 Spironolactone* (Aldactone*) 25 Mg Tablet, 25 MG PO DAILY, #30 TAB Prov:PEDRO KRUSE MD 09/16/18 Megestrol Acetate* (Megace*) 40 Mg Tab, 40 MG PO BID for 60 Days, #30 TAB Prov:PEDRO KRUSE MD 09/16/18 Digoxin* (Lanoxin*) 0.125 Mg Tablet, 0.125 MG PO DAILY for 30 Days, #30 TAB Prov:PEDRO KRUSE MD 09/16/18 Potassium Chloride* (Potassium Chloride*) 8 Meq Capsule.er, 8 MEQ PO DAILY for 30 Days, #30 CAP Prov:PEDRO KRUSE MD 09/16/18 Isosorbide Mononitrate* (Isosorbide Mononitrate*) 30 Mg Tab.er.24h, 30 MG PO DAILY for 30 Days, #30 TAB Prov:PEDRO KRUSE MD 09/16/18 Clopidogrel Bisulfate (Clopidogrel) 75 Mg Tablet, 75 MG PO DAILY, #30 TAB Prov:PEDRO KRUSE MD 09/16/18 Acetaminophen* (Tylenol*) 500 Mg Tab, 500 MG PO Q8 PRN for pain and temp. more then 99F for 30 Days, #90 TAB Prov:PEDRO KRUSE MD 09/16/18 Metoprolol Tartrate* (Lopressor*) 50 Mg Tab, 50 MG PO BID, #60 TAB Prov:PEDRO KRUSE MD 09/16/18 Folic Acid* (Folic Acid*) 1 Mg Tablet, 1 MG PO DAILY for 30 Days, #30 TAB Prov:PEDRO KRUSE MD 09/16/18 Losartan-Hydrochlorothiazide (Losartan-HCTZ) 100-25 Mg Tab, 1 TAB PO DAILY for 30 Days, #30 TAB Prov:PEDRO KRUSE MD 09/16/18 Aspirin* (Aspirin* Chew) 81 Mg Tab.chew, 81 MG PO DAILY for 30 Days, #30 TAB.CHEW Prov:PEDRO KRUSE MD 09/16/18 Reported Medications Levothyroxine Sodium* (Levothyroxine Sodium*) 125 Mcg Tablet, 125 MCG PO BEFORE BREAKFAST, #30 TAB 02/11/19 Esomeprazole Mag Trihydrate (Nexium) 40 Mg Capsule.dr, 40 MG PO DAILY, #30 CAP 02/11/19 Lorazepam* (Lorazepam*) 0.5 Mg Tablet, 0.5 MG PO Q8 PRN for ANXIETY, TAB 02/11/19 Magnesium Oxide* (Magnesium Oxide*) 400 Mg Tablet, 400 MG PO DAILY, TAB 02/11/19 Ondansetron Hcl* (Ondansetron Hcl*) 4 Mg Tablet, 4 MG PO Q6H PRN for nausea/vomiting, TAB 02/11/19 Ergocalciferol* (Drisdol* (Vitamin D2)) 50,000 Unit Capsule, 26080 UNIT PO Q7D for 30 Days, #4 CAP 08/04/16 Medications Current Medications Acetaminophen (Tylenol Tab) 500 mg Q8 PRN PO pain and temp. more then 99F; Start 02/11/19 at 04:30 Aspirin (Aspirin) 81 mg DAILY PO Last administered on 02/12/19at 08:49; Admin Dose 81 MG; Start 02/11/19 at 09:00 Clopidogrel Bisulfate (plaVIX) 75 mg DAILY PO Last administered on 02/12/19at 08:50; Admin Dose 75 MG; Start 02/11/19 at 09:00 Digoxin (Digoxin) 0.125 mg DAILY PO Last administered on 02/12/19at 08:49; Admin Dose 0.125 MG; Start 02/11/19 at 09:00 Isosorbide Mononitrate (Imdur) 30 mg DAILY PO Last administered on 02/12/19at 08:50; Admin Dose 30 MG; Start 02/11/19 at 09:00 Levothyroxine Sodium (Synthroid) 125 mcg BEFORE BREAKFAST PO Last administered on 02/12/19at 06:15; Admin Dose 125 MCG; Start 02/11/19 at 07:00 Lorazepam (Ativan) 0.5 mg Q8 PRN PO ANXIETY; Start 02/11/19 at 04:30 Magnesium Oxide (Mag-Ox 400) 400 mg DAILY PO Last administered on 02/12/19 08:50; Admin Dose 400 MG; Start 02/11/19 at 09:00 Megestrol Acetate (Megace) 40 mg BID PO Last administered on 02/11/19 20:25; Admin Dose 40 MG; Start 02/11/19 at 09:00 Potassium Chloride (Micro-K) 8 meq DAILY PO Last administered on 02/12/19 08:50; Admin Dose 8 MEQ; Start 02/11/19 at 09:00 Spironolactone (Aldactone) 25 mg DAILY PO Last administered on 02/12/19 08:51; Admin Dose 25 MG; Start 02/11/19 at 09:00 Pantoprazole (Protonix Tab) 40 mg DAILY@06 PO Last administered on 02/12/19 06: 15; Admin Dose 40 MG; Start 02/11/19 at 06:00 Fenofibrate (Tricor) 145 mg DAILY PO Last administered on 02/11/19 11:20; Admin Dose 145 MG; Start 02/11/19 at 09:00 Losartan Potassium (Cozaar) 100 mg DAILY PO Last administered on 02/11/19 11:19; Admin Dose 100 MG; Start 02/11/19 at 09:00 Furosemide (Lasix) 40 mg BID DIURETICS IV Last administered on 02/11/19 18:18; Admin Dose 40 MG; Start 02/11/19 at 06:00 Levalbuterol (Xopenex Neb) 0.63 mg Q4H RESP THERAPY PRN HHN WHEEZING AND SOB Last administered on 02/11/19 07:08; Admin Dose 0.63 MG; Start 02/11/19 at 04:30 Ipratropium [place] (Atrovent 0.02% (Neb)) 0.5 mg Q4H RESP THERAPY PRN HHN WHEEZING AND SOB Last administered on 02/11/19 07:08; Admin Dose 0.5 MG; Start 02/11/19 at 04:30 Enoxaparin Sodium (Lovenox) 40 mg DAILY SC Last administered on 02/11/19 11:24; Admin Dose 40 MG; Start 02/11/19 at 09:00 Ondansetron HCl (Zofran Inj) 4 mg Q6H PRN IV NAUSEA AND/OR VOMITING; Start 02/11/19 at 04:30 Hydrochlorothiazide (Hydrochlorothiazide) 25 mg DAILY PO Last administered on 02/12/19at 08:49; Admin Dose 25 MG; Start 02/11/19 at 09:00 Assessment/Plan Hospital Course (Demo Recall) 1. Congestive heart failure exacerbation, systolic, acute on chronic - On Rx - refusing therpy - will encourage lasix and other meds. 2. Shortness of breath secondary to #1- better today pe rnursing report. 3. Cardiomyopathy with decreased left ventricular ejection fraction last approximately 25% to 30%. Con't diuresis. 4. Mitral regurgitation, severe, status post mitral e-clip on 11/2018 - stable by exam. 5. Hypertension, reasonable control - encourage medical compliance. 6. Non-Hodgkin's lymphoma, undergoing chemotherapy at this time. 7. Anemia, mild- no active bleeding now. 8. History of PTCA and stent placements, most recently to LAD in 07/2017. R/O MA. BEULAH MONTGOMERY MD Feb 12, 2019 09:10
[2019-02-12] MEDS ORDERED: AL HYDROX/MG HYDROX/SIMETH 30 ML CUP PO PRN (19:00)
--- NOTE | 2019-02-12 22:08 | PN ---
Date/Time of Note Date/Time of Note DATE: 02/12/19 TIME: 22:00 Assessment/Plan VTE Prophylaxis Risk score (from Nsg)>0 risk: 5 SCD applied (from Nsg): Yes SCD contraindicated: low risk/ambulating Pharmacological prophylaxis: LMWH Lines/Catheters IV Catheter Type (from Nrsg): Saline Lock Central line still needed: No Urinary Cath still in place: No Reason Cath still needed: urinary retention Assessment/Plan Assessment/Plan 1. Severe respiratory distress with worsening of wheezing and inability to sleep. 2.IHD angina, HX of recent PTCA with one stent and 3 balloon dilatation of narrow coronary arteries(; according to the daughter). Status post stapling of mitral valve 4 months ago in [facility] with improvement of condition immediately after the procedure but still she is having frequent hospitalizations. Although it is evident that the cause is not over drinking possibly medication noncompliance. 3. Dysphagia to solids and sometimes to liquids. 4. Pulmonary edema by x-ray with wheezing on admission, improved after lasix. Ejection fraction is visually estimated at 25-30 %. 5. History of Hodgkin lymphoma- s/p chemotherapy and hydration 10 days ago. 6. Osteoarthritis with pain syndrome 7. Anxiety disorder. 8. Depression with grief reaction-s/p loss of . 9. Urinary incontinence. 10. Osteoporosis. 11. Kyphosis. 12. Postmenopausal syndrome. 13. Anemia with nl iron. 14. Brain atrophy on CT. 15. Left sphenoid sinusitis on CT. 16. Left ventricular hypertrophy. 17. Urinary incontinence. 18.Cerebrovascular accident, with left facial drooling, left facial weakness, with slurred speech and dysphagia. Mild left upper extremity weakness.mostly corrected. 19. Hypertension, now normotensive.Cardiomegaly on cxr 20. Status post left subclavian area pacemaker implantation about 3 months ago. 21. Status post mitral valve endocardial manipulation with stapling of the valves with good clinical results. 22. Recurrent episodes of V. tach and SVT; placed on the monitor but cardiology consult. 20.Medication noncompliance. Result Diagram: 02/11/19 0444 02/11/19443 Results 24hrs Laboratory Tests Test 02/12/19 05:23 Troponin I 0.031 Subjective 24 Hr Interval Summary Free Text/Dictation My breathing had improved. I am less shortness of breath no fever and chills. On and off I am having palpitations. Constitutional: improved, poor po, requiring O2; No no complaints, No chills, No diaphoresis, No disoriented, No febrile, No requiring IVF, No other Eyes: No no complaints, No pain, No discharge, No redness, No visual change, No other ENT: congestion, discharge; No no complaints, No bleeding, No pain, No dysphagia, No sore throat, No other Respiratory: pleuritic pain, shortness of breath; No no complaints, No pain, No cough, No sputum, No wheezing, No other Cardiovascular: chest pain, lightheadedness, orthopenea; No no complaints, No edema, No palpitations, No paroxysmal nocturnal dyspnea, No other Gastrointestinal: constipation, decreased appetite, flatus, nausea, passing stool; No no complaints, No pain, No blood, No diarrhea, No vomiting, No other Genitourinary: dysuria, flank pain; No no complaints, No bleeding, No discharge, No hematuria, No other Musculoskeletal: back pain, bone/joint pain; No no complaints, No neck pain, No restricted range of motion, No swelling, No other Neurologic: confusion, dizziness, headache; No no complaints, No focal-weakness, No syncope, No seizure, No other Lymphatic: No no complaints, No adenopathy, No tender nodes, No lymphadema, No other Psychological: anxiety, confusion, depression; No no complaints, No nl mood/affect, No suicidal, No other Exam/Review of Systems Exam Vitals Vital Signs Date Temp Pulse Resp B/P (MAP) Pulse Ox O2 O2 Flow FiO2 Time Delivery Rate 02/12/19 2.0 21:33 02/12/19 Nasal 20:15 Cannula 02/12/19 98.5 96 18 125/70 99 19:54 (88) Intake and Output 02/11/19 02/11/19 02/12/19 1515:00 23:00 07:00 IntakeIntake Total 450 ml BalanceBalance 450 ml Constitutional: alert, oriented (Not in time.), well developed, distress, frail; No non-verbal, No obese, No other Psych: anxiety, depression; No no complaints, No nl mood/affect, No confusion, No suicidal, No other Head: normocephalic, atraumatic; No lacerations, No hematomas, No other Eyes: EOMI, nl lids, PERRL; No nl conjunctiva, No nl sclera, No icteric, No fundi, disc, No other ENMT: tympanic membranes; No nl external ears & nose, No nl lips & teeth, No nl nasal mucosa & septum, No mucosa pink and moist, No intubated, No other Neck: non-tender, jvd, bruits; No supple, No masses, No thyromegaly, No nuchal rigidity, No other Respiratory: normal air movement, congested cough, crackles/rales, diminished breath sounds; No clear to auscultation, No intercostal retraction, No labored breathing, No respirations, No tactile fremitus, No wheezing, No other Cardiovascular: regular rate and rhythm, edema, systolic murmur; No nl pulses, No bruits, No diastolic murmur, No gallop, No irregular rhythm, No jugular venous distention (JVD), No murmurs/extra sounds, No rub, No S3, No S4, No other Gastrointestinal: bowel sounds, distended; No soft, No nl liver, spleen, No non-tender, No ascites, No firm, No hepatomegaly, No mass, No rebound or guarding, No splenomegaly, No surgical scars, No tender, No other Musculoskeletal: nl gait and stance (Unstable gait.), joint tenderness, muscle tone (Severely decreased muscular tone and mass.), muscle weakness; No nl extremities to inspection, No range of motion, No spine non-tender, No swelling, No other Extremities: No normal pulses, No calf tenderness, No cyanosis, No clubbing, No edema, No pitting pedal edema, No palpable cord, No tenderness, No other 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: [employer] II-XII intact (. Hearing impairment.), nl mental status (Anxious turns regrets underwent chemotherapy.), confused, numbness, other (On and off expressing thoughts that she wants to stop treatments she cannot understand why children are insisting to come to the hospital discussed with the patient the necessity of doing that when medications are not helping at home sufficiently enough.); No nl speech, No nl strength, No DTR's symmetric, No focal weakness, No lethargic, No reflexes, No unresponsive Skin: nl turgor; No rash or lesions, No diaphoresis, No ecchymosis, No laceration, No puncture, No other Lymph: No nl lymph nodes, No enlarged, No nontender, No other Results Results 24hrs Laboratory Tests Test 02/12/19 05:23 Troponin I 0.031 Medications Medication Current Medications Acetaminophen (Tylenol Tab) 500 mg Q8 PRN PO pain and temp. more then 99F; Start 02/11/19 at 04:30 Aspirin (Aspirin) 81 mg DAILY PO Last administered on 02/12/19 08:49; Admin Dose 81 MG; Start 02/11/19 at 09:00 Clopidogrel Bisulfate (plaVIX) 75 mg DAILY PO Last administered on 02/12/19 08 :50; Admin Dose 75 MG; Start 02/11/19 at 09:00 Digoxin (Digoxin) 0.125 mg DAILY PO Last administered on 02/12/19 08:49; Admin Dose 0.125 MG; Start 02/11/19 at 09:00 Isosorbide Mononitrate (Imdur) 30 mg DAILY PO Last administered on 02/12/19 08:50; Admin Dose 30 MG; Start 02/11/19 at 09:00 Levothyroxine Sodium (Synthroid) 125 mcg BEFORE BREAKFAST PO Last administered on 02/12/19 06:15; Admin Dose 125 MCG; Start 02/11/19 at 07:00 Lorazepam (Ativan) 0.5 mg Q8 PRN PO ANXIETY; Start 02/11/19 at 04:30 Magnesium Oxide (Mag-Ox 400) 400 mg DAILY PO Last administered on 02/12/19 08:50; Admin Dose 400 MG; Start 02/11/19 at 09:00 Megestrol Acetate (Megace) 40 mg BID PO Last administered on 02/12/19 20:14; Admin Dose 40 MG; Start 02/11/19 at 09:00 Potassium Chloride (Micro-K) 8 meq DAILY PO Last administered on 02/12/19 08:50; Admin Dose 8 MEQ; Start 02/11/19 at 09:00 Spironolactone (Aldactone) 25 mg DAILY PO Last administered on 02/12/19 08:51; Admin Dose 25 MG; Start 02/11/19 at 09:00 Pantoprazole (Protonix Tab) 40 mg DAILY@06 PO Last administered on 02/12/19 06:15; Admin Dose 40 MG; Start 02/11/19 at 06:00 Fenofibrate (Tricor) 145 mg DAILY PO Last administered on 02/11/19 11:20; Admin Dose 145 MG; Start 02/11/19 at 09:00 Losartan Potassium (Cozaar) 100 mg DAILY PO Last administered on 02/11/19 11:19; Admin Dose 100 MG; Start 02/11/19 at 09:00 Furosemide (Lasix) 40 mg BID DIURETICS IV Last administered on 02/11/19 18:18; Admin Dose 40 MG; Start 02/11/19 at 06:00 Levalbuterol (Xopenex Neb) 0.63 mg Q4H RESP THERAPY PRN HHN WHEEZING AND SOB Last administered on 02/11/19 07:08; Admin Dose 0.63 MG; Start 02/11/19 at 04:30 Ipratropium [place] (Atrovent 0.02% (Neb)) 0.5 mg Q4H RESP THERAPY PRN HHN WHEEZING AND SOB Last administered on 02/11/19at 07:08; Admin Dose 0.5 MG; Start 02/11/19 at 04:30 Enoxaparin Sodium (Lovenox) 40 mg DAILY SC Last administered on 02/11/19 11:24; Admin Dose 40 MG; Start 02/11/19 at 09:00 Ondansetron HCl (Zofran Inj) 4 mg Q6H PRN IV NAUSEA AND/OR VOMITING; Start 02/11/19 at 04:30 Hydrochlorothiazide (Hydrochlorothiazide) 25 mg DAILY PO Last administered on 02/12/19 08:49; Admin Dose 25 MG; Start 02/11/19 at 09:00 Al Hydrox/Mg Hydrox/Simethicone (Mag-Al Plus) 30 ml Q6H PRN PO GASTROINTESTINAL UPSET; Start 02/12/19 at 19:00 PEDRO KRUSE MD Feb 12, 2019 22:08
[2019-02-13] VITALS (13 sets, daily range): BP systolic 90–139; BP diastolic 55–70; PULSE 82–120; RESP 16–19
[2019-02-13] MEDS: FUROSEMIDE 40 MG INJ IV SCH ×3 (06:09→17:26)
[2019-02-13] MEDS: PANTOPRAZOLE (EC) 40 MG TAB PO SCH ×2 (06:09→08:38)
[2019-02-13] MEDS: HYDROCHLOROTHIAZIDE 25 MG TAB PO SCH (08:37)
[2019-02-13] MEDS: SPIRONOLACTONE 25 MG TAB PO SCH (08:37)
[2019-02-13] MEDS: LOSARTAN 50 MG TAB PO SCH (08:37)
[2019-02-13] MEDS: CLOPIDOGREL 75 MG TAB PO SCH (08:37)
[2019-02-13] MEDS: FENOFIBRATE 145 MG TAB PO SCH (08:37)
[2019-02-13] MEDS: ISOSORBIDE MONONITRATE(SR)30 MG TAB PO SCH (08:38)
[2019-02-13] MEDS: POTASSIUM CHLORIDE (SR) 8 MEQ CAP PO SCH (08:38)
[2019-02-13] MEDS: MEGESTROL 40 MG TAB PO SCH ×2 (08:38→20:27)
[2019-02-13] MEDS: ASPIRIN 81 MG TAB PO SCH (08:38)
[2019-02-13] MEDS: DIGOXIN 0.125 MG TAB PO SCH ×3 (08:38→11:57)
[2019-02-13] MEDS: LEVOTHYROXINE 125 MCG TAB PO SCH (08:39)
[2019-02-13] MEDS: MAGNESIUM OXIDE 400 MG TAB PO SCH (08:39)
[2019-02-13] MEDS: ENOXAPARIN 40 MG/0.4 ML SYG SC SCH (08:47)
[2019-02-13] MEDS: ACETAMINOPHEN 500 MG TAB PO PRN (08:50)
--- NOTE | 2019-02-13 09:39 | PN ---
Date/Time of Note Date/Time of Note DATE: 02/13/19 TIME: 09:37 Assessment/Plan VTE Prophylaxis Risk score (from Ns)>0 risk: 5 SCD applied (from Ns): Yes SCD contraindicated: low risk/ambulating Pharmacological prophylaxis: LMWH Lines/Catheters IV [facility] (from [facility]): Saline Lock Central line still needed: No Urinary Cath still in place: No Assessment/Plan Result Diagram: 02/13/19 0524 02/13/19 0524 Results 24hrs Laboratory Tests Test 02/13/19 05:24 White Blood Count 8.0 Red Blood Count 3.94 L Hemoglobin 11.2 L Hematocrit 36.5 L Mean Corpuscular Volume 92.6 Mean Corpuscular Hemoglobin 28.4 L Mean Corpuscular Hemoglobin Concent 30.7 L Red Cell Distribution Width 17.5 H Platelet Count 357 # Mean Platelet Volume 11.1 H Immature Granulocytes % 0.500 H Neutrophils % 67.7 Lymphocytes % 16.4 Monocytes % 12.4 H Eosinophils % 2.6 Basophils % 0.4 Nucleated Red Blood Cells % 0.0 Immature Granulocytes # 0.040 H Neutrophils # 5.4 Lymphocytes # 1.3 Monocytes # 1.0 H Eosinophils # 0.2 Basophils # 0.0 Nucleated Red Blood Cells # 0.0 Sodium Level 140 Potassium Level 4.3 Chloride Level 110 Carbon Dioxide Level 20 L Anion Gap 10 Blood Urea Nitrogen 18 Creatinine 0.70 Est Glomerular Filtrat Rate mL/min Glucose Level 114 Calcium Level 9.7 Total Bilirubin 0.4 Direct Bilirubin 0.00 Indirect Bilirubin 0.4 Aspartate Amino Transf (AST/SGOT) 21 Alanine Aminotransferase (ALT/SGPT) 18 Alkaline Phosphatase 63 Total Protein 6.7 Albumin 3.8 Globulin 2.90 Albumin/Globulin Ratio 1.31 Subjective 24 Hr Interval Summary Free Text/Dictation Shortness of breath tiredness persists. I am having irregular heartbeats on and off. Patient is very anxious and tends by being in a hospital. Discussed the necessity of further control of the rhythm and rate. On the monitor patient had episodes of SVT with 10-14 complexes multiple times. Discussed with Dr. Alvarez. Daughter is very concerned about mother's condition. Planned further actions taking into account her low ejection fraction. Subjective hx not possible: pt critical Constitutional: disoriented, poor po, requiring O2; No no complaints, No improved, No chills, No diaphoresis, No febrile, No requiring IVF, No other Eyes: discharge; No no complaints, No pain, No redness, No visual change, No other ENT: congestion; No no complaints, No bleeding, No pain, No discharge, No dysphagia, No sore throat, No other Respiratory: cough, shortness of breath, sputum; No no complaints, No pain, No pleuritic pain, No wheezing, No other Cardiovascular: lightheadedness, orthopenea; No no complaints, No chest pain, No edema, No palpitations, No paroxysmal nocturnal dyspnea, No other Gastrointestinal: constipation, decreased appetite, flatus, nausea, passing stool, vomiting; No no complaints, No pain, No blood, No diarrhea, No other Genitourinary: dysuria; No no complaints, No bleeding, No discharge, No flank pain, No hematuria, No other Musculoskeletal: back pain, bone/joint pain Skin: No no complaints, No bruising, No erythema, No laceration, No pruritis, No rash, No skin lesions, No other Neurologic: dizziness, headache; No no complaints, No confusion, No focal-weakness, No syncope, No seizure, No other Endocrine: No no complaints, No polyuria, No polydypsia, No dry skin, No temp intolerance, No other Lymphatic: No no complaints, No adenopathy, No tender nodes, No lymphadema, No other Psychological: anxiety; No no complaints, No nl mood/affect, No confusion, No depression, No suicidal, No other Immunologic: No no complaints, No immunodeficiency, No pruritis, No rhinitis, No urticaria, No other Exam/Review of Systems Exam Vitals Vital Signs Date Temp Pulse Resp B/P (MAP) Pulse Ox O2 O2 Flow FiO2 Time Delivery Rate 02/13/19 100 08:00 02/13/19 98.1 19 125/70 97 07:41 (88) 02/12/19 2.0 21:33 02/12/19 20:15 Intake and Output 02/12/19 02/12/19 02/13/19 1414:59 22:59 06:59 IntakeIntake Total 400 ml 600 ml BalanceBalance 400 ml 600 ml Results Results 24hrs Laboratory Tests Test 02/13/19 05:24 White Blood Count 8.0 Red Blood Count 3.94 L Hemoglobin 11.2 L Hematocrit 36.5 L Mean Corpuscular Volume 92.6 Mean Corpuscular Hemoglobin 28.4 L Mean Corpuscular Hemoglobin Concent 30.7 L Red Cell Distribution Width 17.5 H Platelet Count 357 # Mean Platelet Volume 11.1 H Immature Granulocytes % 0.500 H Neutrophils % 67.7 Lymphocytes % 16.4 Monocytes % 12.4 H Eosinophils % 2.6 Basophils % 0.4 Nucleated Red Blood Cells % 0.0 Immature Granulocytes # 0.040 H Neutrophils # 5.4 Lymphocytes # 1.3 Monocytes # 1.0 H Eosinophils # 0.2 Basophils # 0.0 Nucleated Red Blood Cells # 0.0 Sodium Level 140 Potassium Level 4.3 Chloride Level 110 Carbon Dioxide Level 20 L Anion Gap 10 Blood Urea Nitrogen 18 Creatinine 0.70 Est Glomerular Filtrat Rate mL/min Glucose Level 114 Calcium Level 9.7 Total Bilirubin 0.4 Direct Bilirubin 0.00 Indirect Bilirubin 0.4 Aspartate Amino Transf (AST/SGOT) 21 Alanine Aminotransferase (ALT/SGPT) 18 Alkaline Phosphatase 63 Total Protein 6.7 Albumin 3.8 Globulin 2.90 Albumin/Globulin Ratio 1.31 Medications Medication Current Medications Acetaminophen (Tylenol Tab) 500 mg Q8 PRN PO pain and temp. more then 99F Last administered on 02/13/19 08:50; Admin Dose 500 MG; Start 02/11/19 at 04:30 Aspirin (Aspirin) 81 mg DAILY PO Last administered on 02/13/19 08:38; Admin Dose 81 MG; Start 02/11/19 at 09:00 Clopidogrel Bisulfate (plaVIX) 75 mg DAILY PO Last administered on 02/13/19 08:37; Admin Dose 75 MG; Start 02/11/19 at 09:00 Digoxin (Digoxin) 0.125 mg DAILY PO Last administered on 02/13/19 08:38; Admin Dose 0.125 MG; Start 02/11/19 at 09:00 Isosorbide Mononitrate (Imdur) 30 mg DAILY PO Last administered on 02/13/19 08:38; Admin Dose 30 MG; Start 02/11/19 at 09:00 Levothyroxine Sodium (Synthroid) 125 mcg BEFORE BREAKFAST PO Last administered on 02/13/19 08:39; Admin Dose 125 MCG; Start 02/11/19 at 07:00 Lorazepam (Ativan) 0.5 mg Q8 PRN PO ANXIETY; Start 02/11/19 at 04:30 Magnesium Oxide (Mag-Ox 400) 400 mg DAILY PO Last administered on 02/13/19 08:39; Admin Dose 400 MG; Start 02/11/19 at 09:00 Megestrol Acetate (Megace) 40 mg BID PO Last administered on 02/13/19 08:38; Admin Dose 40 MG; Start 02/11/19 at 09:00 Potassium Chloride (Micro-K) 8 meq DAILY PO Last administered on 02/13/19 08:38; Admin Dose 8 MEQ; Start 02/11/19 at 09:00 Spironolactone (Aldactone) 25 mg DAILY PO Last administered on 02/13/19 08:37; Admin Dose 25 MG; Start 02/11/19 at 09:00 Pantoprazole (Protonix Tab) 40 mg DAILY@06 PO Last administered on 02/13/19 08:38; Admin Dose 40 MG; Start 02/11/19 at 06:00 Fenofibrate (Tricor) 145 mg DAILY PO Last administered on 02/13/19 08:37; Admin Dose 145 MG; Start 02/11/19 at 09:00 Losartan Potassium (Cozaar) 100 mg DAILY PO Last administered on 02/13/19 08:37; Admin Dose 100 MG; Start 02/11/19 at 09:00 Furosemide (Lasix) 40 mg BID DIURETICS IV Last administered on 02/13/19 08:39; Admin Dose 40 MG; Start 02/11/19 at 06:00 Levalbuterol (Xopenex Neb) 0.63 mg Q4H RESP THERAPY PRN HHN WHEEZING AND SOB Last administered on 02/11/19 07:08; Admin Dose 0.63 MG; Start 02/11/19 at 04:30 Ipratropium [place] (Atrovent 0.02% (Neb)) 0.5 mg Q4H RESP THERAPY PRN HHN WHEEZING AND SOB Last administered on 02/11/19 07:08; Admin Dose 0.5 MG; Start 02/11/19 at 04:30 Enoxaparin Sodium (Lovenox) 40 mg DAILY SC Last administered on 02/13/19 08:47; Admin Dose 40 MG; Start 02/11/19 at 09:00 Ondansetron HCl (Zofran Inj) 4 mg Q6H PRN IV NAUSEA AND/OR VOMITING; Start 02/11/19 at 04:30 Hydrochlorothiazide (Hydrochlorothiazide) 25 mg DAILY PO Last administered on 02/13/19at 08:37; Admin Dose 25 MG; Start 02/11/19 at 09:00 Al Hydrox/Mg Hydrox/Simethicone (Mag-Al Plus) 30 ml Q6H PRN PO GASTROINTESTINAL UPSET; Start 02/12/19 at 19:00 PEDRO KRUSE MD Feb 13, 2019 09:39
[2019-02-13] MEDS ORDERED: METOPROLOL (XL) 25 MG TAB PO ONE (13:30)
--- NOTE | 2019-02-13 13:38 | CONS ---
Assessment/Plan Assessment/Plan Hospital Course (Demo Recall) IMPRESSION: 1. Congestive heart failure exacerbation, systolic, acute on chronic. 2. Shortness of breath secondary to #1. 3. Cardiomyopathy with decreased left ventricular ejection fraction last approximately 25% to 30%. 4. Mitral regurgitation, severe, status post mitral e-clip on 11/2018. 5. Hypertension, reasonable control. 6. Non-Hodgkin's lymphoma, undergoing chemotherapy at this time. 7. Anemia, mild. 8. History of PTCA and stent placements, most recently to LAD in 07/2017. 9. PVC's REcc: -Tele -serial ecg's -Continue current cozaar -Continue lasix/aldactone HCTZ -Resume BB and follow for recurrent arrythmias -s/p IVP digoxin and now on PO digoxin -Continue tricor for now -consider stress testing to further evaluate for ischemia lending to depressed EF and clinical puicture Consultation Date/Type/Reason Admit Date/Time Feb 11, 2019 at 01:25 Initial Consult Date 02/11/19 Type of Consult Cardiology Reason for Consultation CHF Requesting Provider: PEDRO KRSUE MD Date/Time of Note DATE: 02/13/19 TIME: 13:27 Exam/Review of Systems Vital Signs Vitals Vital Signs Date Temp Pulse Resp B/P (MAP) Pulse Ox O2 O2 Flow FiO2 Time Delivery Rate 02/13/19 97.9 105 19 101/58 97 11:24 (72) 02/12/19 2.0 21:33 02/12/19 20:15 Intake and Output 02/12/19 02/12/19 02/13/19 1515:00 23:00 07:00 IntakeIntake Total 400 ml 600 ml BalanceBalance 400 ml 600 ml Exam Exam Review of Systems: CONSTITUTIONAL: No fevers, chills. PULMONARY: mild sob CARDIOVASCULAR: No chest pain/palpitations GASTROINTESTINAL: No nausea/vomiting. GENITOURINARY: No hematuria/dysuria. MUSCULOSKELETAL: No myagias/arthalgias. PSYCHIATRIC: The patient denies depression. NEUROLOGIC: No weakness Constitutional: alert, oriented Psych: no complaints Head: normocephalic ENMT: mucosa pink and moist Neck: supple, jvd (9 cm water) Respiratory: diminished breath sounds (at bases/B) Cardiovascular: regular rate and rhythm Gastrointestinal: soft, non-tender Musculoskeletal: muscle weakness (mild generalized) Extremities: edema (trace) 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: other (No focal deficits) Labs Result Diagram: 02/13/1952302/13/1924 Results 24hrs Laboratory Tests Test 02/13/19 05:24 White Blood Count 8.0 Red Blood Count 3.94 L Hemoglobin 11.2 L Hematocrit 36.5 L Mean Corpuscular Volume 92.6 Mean Corpuscular Hemoglobin 28.4 L Mean Corpuscular Hemoglobin Concent 30.7 L Red Cell Distribution Width 17.5 H Platelet Count 357 # Mean Platelet Volume 11.1 H Immature Granulocytes % 0.500 H Neutrophils % 67.7 Lymphocytes % 16.4 Monocytes % 12.4 H Eosinophils % 2.6 Basophils % 0.4 Nucleated Red Blood Cells % 0.0 Immature Granulocytes # 0.040 H Neutrophils # 5.4 Lymphocytes # 1.3 Monocytes # 1.0 H Eosinophils # 0.2 Basophils # 0.0 Nucleated Red Blood Cells # 0.0 Sodium Level 140 Potassium Level 4.3 Chloride Level 110 Carbon Dioxide Level 20 L Anion Gap 10 Blood Urea Nitrogen 18 Creatinine 0.70 Est Glomerular Filtrat Rate mL/min Glucose Level 114 Calcium Level 9.7 Total Bilirubin 0.4 Direct Bilirubin 0.00 Indirect Bilirubin 0.4 Aspartate Amino Transf (AST/SGOT) 21 Alanine Aminotransferase (ALT/SGPT) 18 Alkaline Phosphatase 63 Total Protein 6.7 Albumin 3.8 Globulin 2.90 Albumin/Globulin Ratio 1.31 Medications Medications Current Medications Acetaminophen (Tylenol Tab) 500 mg Q8 PRN PO pain and temp. more then 99F Last administered on 02/13/19at 08:50; Admin Dose 500 MG; Start 02/11/19 at 04:30 Aspirin (Aspirin) 81 mg DAILY PO Last administered on 02/13/19 08:38; Admin Dose 81 MG; Start 02/11/19 at 09:00 Clopidogrel Bisulfate (plaVIX) 75 mg DAILY PO Last administered on 02/13/19at 08: 37; Admin Dose 75 MG; Start 02/11/19 at 09:00 Isosorbide Mononitrate (Imdur) 30 mg DAILY PO Last administered on 02/13/19at 08:38; Admin Dose 30 MG; Start 02/11/19 at 09:00 Levothyroxine Sodium (Synthroid) 125 mcg BEFORE BREAKFAST PO Last administered on 02/13/19 08:39; Admin Dose 125 MCG; Start 02/11/19 at 07:00 Lorazepam (Ativan) 0.5 mg Q8 PRN PO ANXIETY; Start 02/11/19 at 04:30 Magnesium Oxide (Mag-Ox 400) 400 mg DAILY PO Last administered on 02/13/19 08:39; Admin Dose 400 MG; Start 02/11/19 at 09:00 Megestrol Acetate (Megace) 40 mg BID PO Last administered on 02/13/19 08:38; Admin Dose 40 MG; Start 02/11/19 at 09:00 Potassium Chloride (Micro-K) 8 meq DAILY PO Last administered on 02/13/19 08:38; Admin Dose 8 MEQ; Start 02/11/19 at 09:00 Spironolactone (Aldactone) 25 mg DAILY PO Last administered on 02/13/19 08:37; Admin Dose 25 MG; Start 02/11/19 at 09:00 Pantoprazole (Protonix Tab) 40 mg DAILY@06 PO Last administered on 02/13/19 08:38; Admin Dose 40 MG; Start 02/11/19 at 06:00 Fenofibrate (Tricor) 145 mg DAILY PO Last administered on 02/13/19 08:37; Admin Dose 145 MG; Start 02/11/19 at 09:00 Losartan Potassium (Cozaar) 100 mg DAILY PO Last administered on 02/13/19 08:37; Admin Dose 100 MG; Start 02/11/19 at 09:00 Furosemide (Lasix) 40 mg BID DIURETICS IV Last administered on 02/13/19 08:39; Admin Dose 40 MG; Start 02/11/19 at 06:00 Levalbuterol (Xopenex Neb) 0.63 mg Q4H RESP THERAPY PRN HHN WHEEZING AND SOB Last administered on 02/11/19 07:08; Admin Dose 0.63 MG; Start 02/11/19 at 04:30 Ipratropium [place] (Atrovent 0.02% (Neb)) 0.5 mg Q4H RESP THERAPY PRN HHN WHEEZING AND SOB Last administered on 02/11/19 07:08; Admin Dose 0.5 MG; Start 02/11/19 at 04:30 Enoxaparin Sodium (Lovenox) 40 mg DAILY SC Last administered on 02/13/19at 08:47; Admin Dose 40 MG; Start 02/11/19 at 09:00 Ondansetron HCl (Zofran Inj) 4 mg Q6H PRN IV NAUSEA AND/OR VOMITING; Start 02/11/19 at 04:30 Hydrochlorothiazide (Hydrochlorothiazide) 25 mg DAILY PO Last administered on 02/13/19at 08:37; Admin Dose 25 MG; Start 02/11/19 at 09:00 Al Hydrox/Mg Hydrox/Simethicone (Mag-Al Plus) 30 ml Q6H PRN PO GASTROINTESTINAL UPSET; Start 02/12/19 at 19:00 Digoxin (Digoxin) 0.25 mg Q48H PO ; Start 02/15/19 at 13:00 Digoxin (Digoxin) 0.125 mg ONCE PO ; Start 02/13/19 at 11:00; Stop 02/13/19 at 23:59 Digoxin (Digoxin) 0.125 mg Q48H PO ; Start 02/14/19 at 13:00 ARIEL HOBBS Feb 13, 2019 13:38
--- NOTE | 2019-02-13 15:21 | RADRPT ---
Vent Rate: 73 bpm RR Interval: 0 msec [place] Interval: 154 msec QRS Duration: 86 msec QT Interval: 384 msec QTC Interval: 423 msec P-R-T [place]: 37 - 3 - -74 degrees Normal sinus rhythm Possible Left atrial enlargement T wave abnormality, consider inferior ischemia Abnormal ECG Electronically Signed By: Riky Fierro
[2019-02-14] VITALS (12 sets, daily range): BP systolic 92–115; BP diastolic 50–71; PULSE 79–114; RESP 18–19
[2019-02-14] MEDS: FUROSEMIDE 40 MG INJ IV SCH ×2 (06:09→17:46)
[2019-02-14] MEDS: LEVOTHYROXINE 125 MCG TAB PO SCH (06:10)
[2019-02-14] MEDS: PANTOPRAZOLE (EC) 40 MG TAB PO SCH (06:10)
[2019-02-14] MEDS ORDERED: METOPROLOL (XL) 25 MG TAB PO SCH (09:00)
[2019-02-14] MEDS: ENOXAPARIN 40 MG/0.4 ML SYG SC SCH (09:00)
[2019-02-14] MEDS: ACETAMINOPHEN 500 MG TAB PO PRN (09:15)
[2019-02-14] MEDS: MEGESTROL 40 MG TAB PO SCH ×2 (12:18→20:51)
[2019-02-14] MEDS: ASPIRIN 81 MG TAB PO SCH (12:18)
[2019-02-14] MEDS: CLOPIDOGREL 75 MG TAB PO SCH (12:18)
[2019-02-14] MEDS: ISOSORBIDE MONONITRATE(SR)30 MG TAB PO SCH (12:19)
[2019-02-14] MEDS: LOSARTAN 50 MG TAB PO SCH (12:19)
[2019-02-14] MEDS: FENOFIBRATE 145 MG TAB PO SCH (12:19)
[2019-02-14] MEDS: POTASSIUM CHLORIDE (SR) 8 MEQ CAP PO SCH (12:20)
[2019-02-14] MEDS: SPIRONOLACTONE 25 MG TAB PO SCH (12:20)
[2019-02-14] MEDS: MAGNESIUM OXIDE 400 MG TAB PO SCH (12:20)
[2019-02-14] MEDS: HYDROCHLOROTHIAZIDE 25 MG TAB PO SCH (12:20)
[2019-02-14] MEDS ORDERED: DIGOXIN 0.125 MG TAB PO SCH ×2 (13:00)
--- NOTE | 2019-02-14 13:44 | CONS ---
Assessment/Plan Assessment/Plan Hospital Course (Demo Recall) IMPRESSION: 1. Congestive heart failure exacerbation, systolic, acute on chronic. 2. Shortness of breath secondary to #1. 3. Cardiomyopathy with decreased left ventricular ejection fraction last approximately 25% to 30%. 4. Mitral regurgitation, severe, status post mitral e-clip on 11/2018. 5. Hypertension, reasonable control. 6. Non-Hodgkin's lymphoma, undergoing chemotherapy at this time. 7. Anemia, mild. 8. History of PTCA and stent placements, most recently to LAD in 07/2017. 9. PVC's REcc: -Tele -serial ecg's -Will reduce dose of losartan and increase baseline BB -Continue lasix/aldactone HCTZ -Resume BB and follow for recurrent arrythmias -s/p IVP digoxin and now on PO digoxin and will give additional IVP diose -Continue tricor for now -check fasting lipid panel -Patient refused stress testing this am Consultation Date/Type/Reason Admit Date/Time Feb 11, 2019 at 01:25 Initial Consult Date 02/11/19 Type of Consult Cardiology Reason for Consultation CHF Requesting Provider: PEDRO KRUSE MD Date/Time of Note DATE: 02/14/19 TIME: 13:41 Exam/Review of Systems Vital Signs Vitals Vital Signs Date Temp Pulse Resp B/P (MAP) Pulse Ox O2 O2 Flow FiO2 Time Delivery Rate 02/14/19 94 12:40 02/14/19 98.1 19 115/71 97 11:47 (86) 02/14/19 2.0 02:23 02/12/19 20:15 Intake and Output 02/13/19 02/13/19 02/14/19 1515:00 23:00 07:00 IntakeIntake Total 820 ml BalanceBalance 820 ml Exam Exam Review of Systems: CONSTITUTIONAL: No fevers, chills. PULMONARY: No sob CARDIOVASCULAR: No chest pain/palpitations GASTROINTESTINAL: No nausea/vomiting. GENITOURINARY: No hematuria/dysuria. MUSCULOSKELETAL: No myagias/arthalgias. PSYCHIATRIC: The patient denies depression. NEUROLOGIC: No weakness Constitutional: alert Psych: no complaints Head: normocephalic ENMT: mucosa pink and moist Neck: supple, jvd (9 cm water) Respiratory: diminished breath sounds Cardiovascular: regular rate and rhythm Gastrointestinal: soft, non-tender Musculoskeletal: muscle tone (normal) Extremities: edema (none) 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: other (No focal deficits) Labs Result Diagram: 02/13/1952302/13/19523 Medications Medications Current Medications Acetaminophen (Tylenol Tab) 500 mg Q8 PRN PO pain and temp. more then 99F Last administered on 02/14/19 09:15; Admin Dose 500 MG; Start 02/11/19 at 04:30 Aspirin (Aspirin) 81 mg DAILY PO Last administered on 02/14/19 12:18; Admin Do se 81 MG; Start 02/11/19 at 09:00 Clopidogrel Bisulfate (plaVIX) 75 mg DAILY PO Last administered on 02/14/19 12:18; Admin Dose 75 MG; Start 02/11/19 at 09:00 Isosorbide Mononitrate (Imdur) 30 mg DAILY PO Last administered on 02/14/19 12:19; Admin Dose 30 MG; Start 02/11/19 at 09:00 Levothyroxine Sodium (Synthroid) 125 mcg BEFORE BREAKFAST PO Last administered on 02/14/19 06:10; Admin Dose 125 MCG; Start 02/11/19 at 07:00 Lorazepam (Ativan) 0.5 mg Q8 PRN PO ANXIETY; Start 02/11/19 at 04:30 Magnesium Oxide (Mag-Ox 400) 400 mg DAILY PO Last administered on 02/14/19 12:20; Admin Dose 400 MG; Start 02/11/19 at 09:00 Megestrol Acetate (Megace) 40 mg BID PO Last administered on 02/14/19 12:18; Ad min Dose 40 MG; Start 02/11/19 at 09:00 Potassium Chloride (Micro-K) 8 meq DAILY PO Last administered on 02/14/19 12:20; Admin Dose 8 MEQ; Start 02/11/19 at 09:00 Spironolactone (Aldactone) 25 mg DAILY PO Last administered on 02/14/19 12:20; Admin Dose 25 MG; Start 02/11/19 at 09:00 Pantoprazole (Protonix Tab) 40 mg DAILY@06 PO Last administered on 02/14/19 06:10; Admin Dose 40 MG; Start 02/11/19 at 06:00 Fenofibrate (Tricor) 145 mg DAILY PO Last administered on 02/14/19 12:19; Admin Dose 145 MG; Start 02/11/19 at 09:00 Losartan Potassium (Cozaar) 100 mg DAILY PO Last administered on 02/14/19 12:19; Admin Dose 100 MG; Start 02/11/19 at 09:00 Furosemide (Lasix) 40 mg BID DIURETICS IV Last administered on 02/14/19 06:09; Admin Dose 40 MG; Start 02/11/19 at 06:00 Levalbuterol (Xopenex Neb) 0.63 mg Q4H RESP THERAPY PRN HHN WHEEZING AND SOB Last administered on 02/11/19 07:08; Admin Dose 0.63 MG; Start 02/11/19 at 04:30 Ipratropium [place] (Atrovent 0.02% (Neb)) 0.5 mg Q4H RESP THERAPY PRN HHN WHEEZING AND SOB Last administered on 02/11/19 07:08; Admin Dose 0.5 MG; Start 02/11/19 at 04:30 Enoxaparin Sodium (Lovenox) 40 mg DAILY SC Last administered on 02/13/19 08:47; Admin Dose 40 MG; Start 02/11/19 at 09:00 Ondansetron HCl (Zofran Inj) 4 mg Q6H PRN IV NAUSEA AND/OR VOMITING; Start 02/11/19 at 04:30 Hydrochlorothiazide (Hydrochlorothiazide) 25 mg DAILY PO Last administered on 02/14/19 12:20; Admin Dose 25 MG; Start 02/11/19 at 09:00 Al Hydrox/Mg Hydrox/Simethicone (Mag-Al Plus) 30 ml Q6H PRN PO GASTROINTESTINAL UPSET; Start 02/12/19 at 19:00 Digoxin (Digoxin) 0.25 mg Q48H PO ; Start 02/15/19 at 13:00 Digoxin (Digoxin) 0.125 mg Q48H PO ; Start 02/14/19 at 13:00 Metoprolol Succinate (Toprol Xl) 25 mg DAILY PO Last administered on 02/14/19 12:20; Admin Dose 25 MG; Start 02/14/19 at 09:00 ARIEL HOBBS Feb 14, 2019 13:44
[2019-02-14] MEDS ORDERED: DIGOXIN 500 MCG INJ IV ONE (14:00)
[2019-02-14] MEDS: METOPROLOL (XL) 25 MG TAB PO SCH (20:59)
[2019-02-15] VITALS (9 sets, daily range): BP systolic 97–116; BP diastolic 59–79; PULSE 77–112; RESP 16–19
[2019-02-15] MEDS: FUROSEMIDE 40 MG INJ IV SCH ×2 (06:12→17:29)
[2019-02-15] MEDS: LEVOTHYROXINE 125 MCG TAB PO SCH (06:12)
[2019-02-15] MEDS: PANTOPRAZOLE (EC) 40 MG TAB PO SCH (06:12)
[2019-02-15] MEDS: ACETAMINOPHEN 500 MG TAB PO PRN (06:19)
[2019-02-15] MEDS: METOPROLOL (XL) 25 MG TAB PO SCH (09:00)
[2019-02-15] MEDS: ISOSORBIDE MONONITRATE(SR)30 MG TAB PO SCH (09:00)
[2019-02-15] MEDS ORDERED: LOSARTAN 50 MG TAB PO SCH (09:00)
[2019-02-15] MEDS: ENOXAPARIN 40 MG/0.4 ML SYG SC SCH (09:00)
[2019-02-15] MEDS ORDERED: REGADENOSON 0.4 MG/5 ML SYG ONE (10:07)
--- NOTE | 2019-02-15 11:46 | CONS ---
Assessment/Plan Assessment/Plan Hospital Course (Demo Recall) IMPRESSION: 1. Congestive heart failure exacerbation, systolic, acute on chronic. 2. Shortness of breath secondary to #1. 3. Cardiomyopathy with decreased left ventricular ejection fraction last approximately 25% to 30%. 4. Mitral regurgitation, severe, status post mitral e-clip on 11/2018. 5. Hypertension, reasonable control. 6. Non-Hodgkin's lymphoma, undergoing chemotherapy at this time. 7. Anemia, mild. 8. History of PTCA and stent placements, most recently to LAD in 07/2017. 9. PVC's REcc: -Tele -serial ecg's -Contineu losartan/BB as tolrated -Continue lasix/aldactone HCTZ -s/p IVP digoxin and now on PO digoxin -Continue tricor for now -Now consented to lexiscan and thus will perform today Consultation Date/Type/Reason Admit Date/Time Feb 11, 2019 at 01:25 Initial Consult Date 02/11/19 Type of Consult Cardiology Reason for Consultation CHF Requesting Provider: PEDRO KRUSE MD Date/Time of Note DATE: 02/15/19 TIME: 11:43 Exam/Review of Systems Vital Signs Vitals Vital Signs Date Temp Pulse Resp B/P (MAP) Pulse Ox O2 O2 Flow FiO2 Time Delivery Rate 02/15/19 94 08:00 02/15/19 98.2 19 116/79 96 07:30 (91) 02/14/19 2.0 02:23 02/12/19 20:15 Intake and Output 02/14/19 02/14/19 02/15/19 1515:00 23:00 07:00 IntakeIntake Total 500 ml BalanceBalance 500 ml Exam Exam Review of Systems: CONSTITUTIONAL: No fevers, chills. PULMONARY: No sob CARDIOVASCULAR: No chest pain/palpitations GASTROINTESTINAL: No nausea/vomiting. GENITOURINARY: No hematuria/dysuria. MUSCULOSKELETAL: No myagias/arthalgias. PSYCHIATRIC: The patient denies depression. NEUROLOGIC: No weakness Constitutional: alert Psych: no complaints Head: normocephalic ENMT: mucosa pink and moist Neck: supple, jvd (9 cm water) Respiratory: diminished breath sounds (at bases/B) Cardiovascular: regular rate and rhythm Gastrointestinal: soft, non-tender Musculoskeletal: muscle tone (normal) Extremities: edema (none) 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: other (No focal deficits) Labs Result Diagram: 02/13/1952302/13/19523 Medications Medications Current Medications Acetaminophen (Tylenol Tab) 500 mg Q8 PRN PO pain and temp. more then 99F Last administered on 02/15/19 06:19; Admin Dose 500 MG; Start 02/11/19 at 04:30 Aspirin (Aspirin) 81 mg DAILY PO Last administered on 02/14/19 12:18; Admin Dose 81 MG; Start 02/11/19 at 09:00 Clopidogrel Bisulfate (plaVIX) 75 mg DAILY PO Last administered on 02/14/19 12:18; Admin Dose 75 MG; Start 02/11/19 at 09:00 Isosorbide Mononitrate (Imdur) 30 mg DAILY PO Last administered on 02/14/19 12:19; Admin Dose 30 MG; Start 02/11/19 at 09:00 Levothyroxine Sodium (Synthroid) 125 mcg BEFORE BREAKFAST PO Last administered on 02/15/19 06:12; Admin Dose 125 MCG; Start 02/11/19 at 07:00 Lorazepam (Ativan) 0.5 mg Q8 PRN PO ANXIETY; Start 02/11/19 at 04:30 Magnesium Oxide (Mag-Ox 400) 400 mg DAILY PO Last administered on 02/14/19 12:20; Admin Dose 400 MG; Start 02/11/19 at 09:00 Megestrol Acetate (Megace) 40 mg BID PO Last administered on 02/14/19 20:51; Admin Dose 40 MG; Start 02/11/19 at 09:00 Potassium Chloride (Micro-K) 8 meq DAILY PO Last administered on 02/14/19 12:20; Admin Dose 8 MEQ; Start 02/11/19 at 09:00 Spironolactone (Aldactone) 25 mg DAILY PO Last administered on 02/14/19 12:20; Admin Dose 25 MG; Start 02/11/19 at 09:00 Pantoprazole (Protonix Tab) 40 mg DAILY@06 PO Last administered on 02/15/19 06:12; Admin Dose 40 MG; Start 02/11/19 at 06:00 Fenofibrate (Tricor) 145 mg DAILY PO Last administered on 02/14/19 12:19; Admin Dose 145 MG; Start 02/11/19 at 09:00 Furosemide (Lasix) 40 mg BID DIURETICS IV Last administered on 02/15/19at 06:12; Admin Dose 40 MG; Start 02/11/19 at 06:00 Levalbuterol (Xopenex Neb) 0.63 mg Q4H RESP THERAPY PRN HHN WHEEZING AND SOB Last administered on 02/11/19at 07:08; Admin Dose 0.63 MG; Start 02/11/19 at 04:30 Ipratropium [place] (Atrovent 0.02% (Neb)) 0.5 mg Q4H RESP THERAPY PRN HHN WHEEZING AND SOB Last administered on 02/11/19at 07:08; Admin Dose 0.5 MG; Start 02/11/19 at 04:30 Enoxaparin Sodium (Lovenox) 40 mg DAILY SC Last administered on 02/13/19at 08:47; Admin Dose 40 MG; Start 02/11/19 at 09:00 Ondansetron HCl (Zofran Inj) 4 mg Q6H PRN IV NAUSEA AND/OR VOMITING; Start 02/11/19 at 04:30 Hydrochlorothiazide (Hydrochlorothiazide) 25 mg DAILY PO Last administered on 02/14/19at 12:20; Admin Dose 25 MG; Start 02/11/19 at 09:00 Al Hydrox/Mg Hydrox/Simethicone (Mag-Al Plus) 30 ml Q6H PRN PO GASTROINTESTINAL UPSET; Start 02/12/19 at 19:00 Digoxin (Digoxin) 0.25 mg Q48H PO ; Start 02/15/19 at 13:00 Digoxin (Digoxin) 0.125 mg Q48H PO Last administered on 02/14/19at 13:48; Admin Dose 0.125 MG; Start 02/14/19 at 13:00 Losartan Potassium (Cozaar) 50 mg DAILY PO ; Start 02/15/19 at 09:00 Metoprolol Succinate (Toprol Xl) 25 mg BID PO ; Start 02/14/19 at 21:00 ARIEL HOBBS Feb 15, 2019 11:45
[2019-02-15] MEDS ORDERED: DIGOXIN 0.25 MG TAB PO SCH (13:00)
--- NOTE | 2019-02-15 13:55 | CONS ---
DATE OF ADMISSION: 02/11/2019 DATE OF CONSULTATION: 02/15/2019 Lexiscan Cardiolite stress test, electrocardiogram portion. REASON FOR STRESS TESTING: Recurrent bouts of congestive heart failure, shortness of breath. a ssess for ischemia. BASELINE VITAL SIGNS and ELECTROCARDIOGRAM: Pulse of 92, blood pressure 120/65. Electrocardiogram w as sinus rhythm, rate 92, normal axis and intervals, borderline inferior Q's. PROCEDURE: The patient underwent standard Lexiscan infusion protocol over 10 seconds followed by rad iotracer. The patient's test was stopped due to completion of protocol. Maximal achieved blood pres sure during the test 128/72. Maximum heart rate during the test 121. ECG FINDINGS: The patient has not developed any new Lexiscan-induced ST or T-wave changes from basel ine. Occasional PVCs. SYMPTOMS: The patient had mild complaints of shortness of breath during stress testing, no chest esau n. IMPRESSION: 1. No Lexiscan-induced ST or T-wave changes from baseline abnormalities diagnostic for ischemia. 2. No complaints of chest pain during stress testing. Positive shortness of breath, which resolved in recovery. 3. Occasional premature ventricular contractions during stress test. 4. Report of nuclear images to follow in separate dictation. Dictated By: ARIEL ALVAREZ/NTS Conf#: [id number] DID#: [id number] CC: PEDRO KRUSE MD;*EndCC*
[2019-02-15] MEDS: MAGNESIUM OXIDE 400 MG TAB PO SCH (14:01)
[2019-02-15] MEDS: POTASSIUM CHLORIDE (SR) 8 MEQ CAP PO SCH (14:01)
[2019-02-15] MEDS: ASPIRIN 81 MG TAB PO SCH (14:01)
[2019-02-15] MEDS: FENOFIBRATE 145 MG TAB PO SCH (14:02)
[2019-02-15] MEDS: MEGESTROL 40 MG TAB PO SCH (14:02)
[2019-02-15] MEDS: CLOPIDOGREL 75 MG TAB PO SCH (14:02)
[2019-02-15] MEDS: SPIRONOLACTONE 25 MG TAB PO SCH (14:02)
[2019-02-15] MEDS: HYDROCHLOROTHIAZIDE 25 MG TAB PO SCH (14:04)
--- NOTE | 2019-02-15 20:38 | PDOCDIS ---
Discharge Instructions CONDITION [id number] Patient Condition: [id number] Guarded HOME CARE INSTRUCTIONS: [id number] Diet Instructions: [id number] Reduced Sodium ACTIVITY: [id number] Activity Restrictions: [id number] Slowly Increase Activity FOLLOW UP/APPOINTMENTS Follow-up Plan To be seen by primary care physician in 5 days by cardiology in 7 days by oncologist in 2 weeks maximum. REFERRALS Other Referrals The patient was recommended also to recheck the ICD. SCHOOL/WORK RELEASE May return to School/Work on: Feb 15, 2019 May return to School/Work with: None. PEDRO KRUSE MD Feb 15, 2019 20:38
--- NOTE | 2019-02-15 20:42 | DS ---
Date/Time of Note Date/Time of Note DATE: 02/15/19 TIME: 20:39 Discharge Summary Admission/Discharge Info Admit Date/Time Feb 11, 2019 at 01:25 Discharge Date/Time Feb 15, 2019 at 19:09 Patient Condition: Guarded Hx of Present Illness Severe shortness of breath feeling of suffocation. They went to chemotherapy about 10 days ago. I think everything started from there. Otherwise I do I will doing fine. Yesterday he was having a fast heartbeat along with a severe shortness of breath. My children insisted with to come to the hospital now I feel better. I confess I did not drink too much water by by discontinuing I do not know. Hospital Course Patient was admitted with respiratory distress typical for acute pulmonary ed trish. Initial management by diuresis and other measures done in the emergency room overall condition improved during hospital stay it was found that the patient is having a rather frequent ventricular tachycardia's frequent PVCs. Discussed with Dr. Alvarez to increase the threshold of the ICD because it never had shot to control the tachycardia. It is evident that her mitral insu fficiency even after putting a clip did not improve functional status of her heart significantly and will plan to be seen by organizational effectiveness director in the [facility] one more time to readdress current issue. Blood sugar is better controlled is very depressed and refusing to stay in the hospital refusing cardiology examination. This was explained that part of her problem is not of coronary arteries despite she had a previously placed stent this time at least nuclear medicine study to assess cardiac function and the degree of narrowing of the coronary arteries needs to be done. The patient agreed then to perform a test increase the dose of digoxin alternating day for tablet and half tablet. With a dose of 0.25 Cardizem was added along with the metoprolol rate controlled at this time become more important along with a rhythm control. Discussed with Dr. Alvarez will come from continue to manage as an outpatient Home Meds Active Scripts Ipratropium-Albuterol (Ipratropium-Albuterol) 0.5-3 Mg/3 Ml Ampul.neb, 3 ML HHN Q4H RESP THERAPY PRN for SHORTNESS OF BREATH for 30 Days, #90 Prov:PRINCESS KRUSE MD 09/16/18 Albuterol Sulfate* (Albuterol Sulfate* Neb) 0.083%-3 Ml Neb, 2.5 MG HHN Q8H RESP THERAPY for 90 Days, #90 CAP 2 Refills Prov:PRINCESS KRUSE MD 09/16/18 Fenofibrate* (Fenofibrate*) 200 Mg Cap, 200 MG PO DAILY for 30 Days, #30 CAP Prov:PRINCESS KRUSE MD 09/16/18 Furosemide* (Furosemide*) 40 Mg Tablet, 40 MG PO DAILY for 30 Days, #30 TAB Prov:PRINCESS KRUSE MD 09/16/18 Spironolactone* (Aldactone*) 25 Mg Tablet, 25 MG PO DAILY, #30 TAB Prov:PRINCESS KRUSE MD 09/16/18 Megestrol Acetate* (Megace*) 40 Mg Tab, 40 MG PO BID for 60 Days, #30 TAB Prov:PRINCESS KRUSE MD 09/16/18 Digoxin* (Lanoxin*) 0.125 Mg Tablet, 0.125 MG PO DAILY for 30 Days, #30 TAB Prov:PRINCESS KRUSE MD 09/16/18 Potassium Chloride* (Potassium Chloride*) 8 Meq Capsule.er, 8 MEQ PO DAILY for 30 Days, #30 CAP Prov:PRINCESS KRUSE MD 09/16/18 Isosorbide Mononitrate* (Isosorbide Mononitrate*) 30 Mg Tab.er.24h, 30 MG PO DAILY for 30 Days, #30 TAB Prov:PRINCESS KRUSE MD 09/16/18 Clopidogrel Bisulfate (Clopidogrel) 75 Mg Tablet, 75 MG PO DAILY, #30 TAB Prov:PRINCESS KRUSE MD 09/16/18 Acetaminophen* (Tylenol*) 500 Mg Tab, 500 MG PO Q8 PRN for pain and temp. more then 99F for 30 Days, #90 TAB Prov:PRINCESS KRUSE MD 09/16/18 Metoprolol Tartrate* (Lopressor*) 50 Mg Tab, 50 MG PO BID, #60 TAB Prov:PRINCESS KRUSE MD 09/16/18 Folic Acid* (Folic Acid*) 1 Mg Tablet, 1 MG PO DAILY for 30 Days, #30 TAB Prov:PRINCESS KRUSE MD 09/16/18 Losartan-Hydrochlorothiazide (Losartan-HCTZ) 100-25 Mg Tab, 1 TAB PO DAILY for 30 Days, #30 TAB Prov:PRINCESS KRUSE MD 09/16/18 Aspirin* (Aspirin* Chew) 81 Mg Tab.chew, 81 MG PO DAILY for 30 Days, #30 TAB.CHEW Prov:PRINCESS KRUSE MD 09/16/18 Reported Medications Levothyroxine Sodium* (Levothyroxine Sodium*) 125 Mcg Tablet, 125 MCG PO BEFORE BREAKFAST, #30 TAB 02/11/19 Esomeprazole Mag Trihydrate (Nexium) 40 Mg Capsule.dr, 40 MG PO DAILY, #30 CAP 02/11/19 Lorazepam* (Lorazepam*) 0.5 Mg Tablet, 0.5 MG PO Q8 PRN for ANXIETY, TAB 02/11/19 Magnesium Oxide* (Magnesium Oxide*) 400 Mg Tablet, 400 MG PO DAILY, TAB 02/11/19 Ondansetron Hcl* (Ondansetron Hcl*) 4 Mg Tablet, 4 MG PO Q6H PRN for nausea/vomiting, TAB 02/11/19 Ergocalciferol* (Drisdol* (Vitamin D2)) 50,000 Unit Capsule, 38448 UNIT PO Q7D for 30 Days, #4 CAP 08/04/16 Follow-up Plan To be seen by primary care physician in 5 days by cardiology in 7 days by oncologist in 2 weeks maximum. Primary Care Provider Princess Kruse MD Time spent on discharge: > 30 minutes PRINCESS KRUSE MD Feb 15, 2019 20:42
== END 2019-02-15 19:09 | disposition home or self-care (01) | DRG 292 ==
LOC: E/R 22:23 → 6WM 02-11 01:25 → CANRESERV 02-11 01:32 → 6WM 02-11 01:56
PROVIDERS: ADMIT Family Medicine; ATTEND Family Medicine
DX: I11.0 Hypertensive heart disease with heart failure (principal); C85.90 Non-Hodgkin lymphoma, unspecified, unspecified site; I42.9 Cardiomyopathy, unspecified; I34.0 Nonrheumatic mitral (valve) insufficiency; D64.9 Anemia, unspecified; I69.991 Dysphagia following unspecified cerebrovascular disease; I50.23 Acute on chronic systolic (congestive) heart failure; I25.119 Atherosclerotic heart disease of native coronary artery with unspecified angina pectoris; R13.10 Dysphagia, unspecified; F41.9 Anxiety disorder, unspecified; R32 Unspecified urinary incontinence; M81.0 Age-related osteoporosis without current pathological fracture; I69.992 Facial weakness following unspecified cerebrovascular disease; Z79.82 Long term (current) use of aspirin; Z79.02 Long term (current) use of antithrombotics/antiplatelets; Z95.5 Presence of coronary angioplasty implant and graft
CPT/HCPCS: 36415; 71045; 78452; 80053; 80162; 80307; 81001; 83605; 83735; 83880; 84443; 84484; 85025; 85378; 85610; 85730; 87081; 87086; 93005; 93017; 93306; 93970; 94664; A9500; A9505; J1650; J1940; J2785

== ENCOUNTER 2019-04-13 19:31 | Inpatient (IN) | payer MEDICARE, OTHER ==
[~2019-04-13] VITALS: Ht 157.5 cm; Wt 63.8 kg
[~2019-04-13 19:31] MED LIST changes: -DEXL60CA2 PO; +ESOM40CA PO; -LEVO100T8 PO; +LEVO125T7 PO; +LORA0.5T PO; +MAGN400T28 PO; +ONDA4TAB95 PO
--- NOTE | 2019-04-13 20:11 | ERD ---
ER Documentation Chief Complaint Chief Complaint generalize body weakness/poor appetite x 1 week HPI This is a 73-year-old female with a history of lymphoma who presents for evaluation of generalized weakness. Patient denies fever, she states that she has she has not been eating a lot, most of her history was obtained from family. She has not had any chest pain or shortness of breath, she denies chest pain, she has not had syncope, no leg swelling. She has not had hemoptysis. ROS All systems reviewed and are negative except as per history of present illness. Medications Home Meds Active Scripts Ipratropium-Albuterol (Ipratropium-Albuterol) 0.5-3 Mg/3 Ml Ampul.neb, 3 ML HHN Q4H RESP THERAPY PRN for SHORTNESS OF BREATH for 30 Days, #90 Prov:PEDRO KRUSE MD 09/16/18 Albuterol Sulfate* (Albuterol Sulfate* Neb) 0.083%-3 Ml Neb, 2.5 MG HHN Q8H RESP THERAPY for 90 Days, #90 CAP 2 Refills Prov:PEDRO KRUSE MD 09/16/18 Fenofibrate* (Fenofibrate*) 200 Mg Cap, 200 MG PO DAILY for 30 Days, #30 CAP Prov:PEDRO KRUSE MD 09/16/18 Furosemide* (Furosemide*) 40 Mg Tablet, 40 MG PO DAILY for 30 Days, #30 TAB Prov:PEDRO KRUSE MD 09/16/18 Spironolactone* (Aldactone*) 25 Mg Tablet, 25 MG PO DAILY, #30 TAB Prov:PEDRO KRUSE MD 09/16/18 Megestrol Acetate* (Megace*) 40 Mg Tab, 40 MG PO BID for 60 Days, #30 TAB Prov:PEDRO KRUSE MD 09/16/18 Digoxin* (Lanoxin*) 0.125 Mg Tablet, 0.125 MG PO DAILY for 30 Days, #30 TAB Prov:PEDRO KRUSE MD 09/16/18 Potassium Chloride* (Potassium Chloride*) 8 Meq Capsule.er, 8 MEQ PO DAILY for 30 Days, #30 CAP Prov:PEDRO KRUSE MD 09/16/18 Isosorbide Mononitrate* (Isosorbide Mononitrate*) 30 Mg Tab.er.24h, 30 MG PO DAILY for 30 Days, #30 TAB Prov:PEDRO KRUSE MD 09/16/18 Clopidogrel Bisulfate (Clopidogrel) 75 Mg Tablet, 75 MG PO DAILY, #30 TAB Prov:PEDRO KRUSE MD 09/16/18 Acetaminophen* (Tylenol*) 500 Mg Tab, 500 MG PO Q8 PRN for pain and temp. more then 99F for 30 Days, #90 TAB Prov:PEDRO KRUSE MD 09/16/18 Metoprolol Tartrate* (Lopressor*) 50 Mg Tab, 50 MG PO BID, #60 TAB Prov:PEDRO KRUSE MD 09/16/18 Folic Acid* (Folic Acid*) 1 Mg Tablet, 1 MG PO DAILY for 30 Days, #30 TAB Prov:PEDRO KRUSE MD 09/16/18 Losartan-Hydrochlorothiazide (Losartan-HCTZ) 100-25 Mg Tab, 1 TAB PO DAILY for 30 Days, #30 TAB Prov:PEDRO KRUSE MD 09/16/18 Aspirin* (Aspirin* Chew) 81 Mg Tab.chew, 81 MG PO DAILY for 30 Days, #30 TAB.CHEW Prov:PEDRO KRUSE MD 09/16/18 Reported Medications Levothyroxine Sodium* (Levothyroxine Sodium*) 125 Mcg Tablet, 125 MCG PO BEFORE BREAKFAST, #30 TAB 02/11/19 Esomeprazole Mag Trihydrate (Nexium) 40 Mg Capsule.dr, 40 MG PO DAILY, #30 CAP 02/11/19 Lorazepam* (Lorazepam*) 0.5 Mg Tablet, 0.5 MG PO Q8 PRN for ANXIETY, TAB 02/11/19 Magnesium Oxide* (Magnesium Oxide*) 400 Mg Tablet, 400 MG PO DAILY, TAB 02/11/19 Ondansetron Hcl* (Ondansetron Hcl*) 4 Mg Tablet, 4 MG PO Q6H PRN for nausea/vomiting, TAB 02/11/19 Ergocalciferol* (Drisdol* (Vitamin D2)) 50,000 Unit Capsule, 04259 UNIT PO Q7D for 30 Days, #4 CAP 08/04/16 Allergies Allergies: Coded Allergies: vancomycin (Verified Allergy, Mild, REDNESS AND ITCHING, 03/20/18) PMhx/Soc History of Surgery: Yes (right eye cataract surgery) Anesthesia Reaction: No Hx 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 Disorder: Yes (CVA) Hx Respiratory Disorders: No Hx Cardiac Disorders: Yes (HTN, CAD, PTCA w/ stent, CHF) Hx Psychiatric Problems: Yes (anciety, depression) Hx Miscellaneous Medical Probl: Yes (lymphoma, chemotherapy) Hx Alcohol Use: No Hx Substance Use: No Hx Tobacco Use: No Physical Exam Vitals Vital Signs Date Temp Pulse Resp B/P (MAP) Pulse Ox O2 O2 Flow FiO2 Time Delivery Rate 04/13/19 107 20 130/99 98 Room Air 21:30 (109) 04/13/19 103 22 112/74 98 Room Air 20:30 (87) 04/13/19 108 23 123/88 97 Room Air 19:51 (100) 04/13/19 97.7 117 20 122/85 98 19:39 (97) Physical Exam Const: Generally chronically ill-appearing female, appears older than stated age Head: Atraumatic Eyes: Normal Conjunctiva ENT: Normal External Ears, Nose and Mouth. Neck: Full range of motion. No meningismus. Resp: Clear to auscultation bilaterally, no wheezes rales rhonchi Cardio: Regular rate and rhythm, no murmurs Abd: Soft, non tender, non distended. Normal bowel sounds Skin: No petechiae or rashes Back: No midline or flank tenderness Ext: No cyanosis, or edema Neur: Awake and alert Psych: Normal Mood and Affect Result Diagram: 04/13/19200304/13/192003 Results 24 hrs Laboratory Tests Test 04/13/19 20:04 04/13/19 22:04 White Blood Count 6.5 10^3/ul Red Blood Count 4.56 10^6/ul Hemoglobin 12.3 g/dl Hematocrit 40.8 % Mean Corpuscular Volume 89.5 fl Mean Corpuscular Hemoglobin 27.0 pg Mean Corpuscular Hemoglobin Concent 30.1 g/dl Red Cell Distribution Width 16.5 % Platelet Count 259 10^3/UL Mean Platelet Volume 11.1 fl Immature Granulocytes % 0.200 % Neutrophils % 76.7 % Lymphocytes % 14.0 % Monocytes % 8.0 % Eosinophils % 0.6 % Basophils % 0.5 % Nucleated Red Blood Cells % 0.0 /100WBC Immature Granulocytes # 0.010 10^3/ul Neutrophils # 5.0 10^3/ul Lymphocytes # 0.9 10^3/ul Monocytes # 0.5 10^3/ul Eosinophils # 0.0 10^3/ul Basophils # 0.0 10^3/ul Nucleated Red Blood Cells # 0.0 10^3/ul Prothrombin Time 13.8 Sec Prothrombin Time Ratio 1.1 INR International Normalized Ratio 1.05 Activated Partial Thromboplast Time 27.1 Sec Sodium Level 142 mmol/L Potassium Level 4.1 mmol/L Chloride Level 105 mmol/L Carbon Dioxide Level 25 mmol/L Anion Gap 12 Blood Urea Nitrogen 15 mg/dl Creatinine 0.87 mg/dl Est Glomerular Filtrat Rate mL/min mL/min Glucose Level 157 mg/dl Calcium Level 9.6 mg/dl Total Bilirubin 0.8 mg/dl Direct Bilirubin 0.00 mg/dl Indirect Bilirubin 0.8 mg/dl Aspartate Amino Transf (AST/SGOT) 24 IU/L Alanine Aminotransferase (ALT/SGPT) 19 IU/L Alkaline Phosphatase 62 IU/L Troponin I 0.043 ng/ml B-Type Natriuretic Peptide 8920 PG/ML Total Protein 7.5 g/dl Albumin 4.3 g/dl Globulin 3.20 g/dl Albumin/Globulin Ratio 1.34 Lipase 119 U/L Thyroid Stimulating Hormone (TSH) 2.600 MIU/L Urine Color YELLOW Urine Clarity SLIGHTLY CLOUDY Urine pH 6.0 Urine Specific [place] 1.015 Urine Ketones NEGATIVE mg/dL Urine Nitrite NEGATIVE mg/dL Urine Bilirubin NEGATIVE mg/dL Urine Urobilinogen 1+ mg/dL Urine Leukocyte Esterase 2+ Markie/ul Urine Microscopic RBC 1 /HPF Urine Microscopic WBC 20 /HPF Urine Squamous Epithelial Cells FEW /HPF Urine Bacteria FEW /HPF Urine Mucus FEW /HPF Urine Hemoglobin NEGATIVE mg/dL Urine Glucose NEGATIVE mg/dL Urine Total Protein NEGATIVE mg/dl Current Medications Medications Dose Sig/Rafa Start Time Status Last (Trade) Ordered Route PRN Stop Time Admin Dose Reason Admin 1,000 mg ONCE STAT 04/13/19 DC 04/13/19 Acetaminophen PO 21:26 04/13/19 21:33 (Tylenol 21:30 Tab) Ceftriaxone 50 ml @ ONCE ONCE 04/13/19 04/13/19 Sodium 100 mls/hr IVPB 23:00 04/13/19 22:42 23:29 Azithromycin 250 ml @ ONCE ONCE 04/13/19 250 mls/hr IVPB 23:00 04/13/19 23:59 Procedures/MDM 73-year-old female presents for generalized weakness. On exam patient appears mildly volume overloaded, otherwise she is afebrile and nontoxic, her labs are overall unremarkable, her chest x-ray showed left-sided atelectasis, versus pn eumonia additionally there were WBCs in the urine, so I also considered a UTI. Given her comorbidities, and her presentation of having generalized weakness, and being chronically debilitated, I recommend admission for IV antibiotics for pneumonia and possible UTI. Patient and family were agreeable to plan. Accepting Care Team: Current data and ongoing care discussed. Primary: Lauren Consulting: None Outstanding Data: none EKG: Rate/Rhythm: Normal Sinus Rhythm QRS, ST, T-waves: No changes consistent w/ acute ischemia Impression: No evidence of ischemia or arrhythmia Departure Diagnosis: Primary Impression: Acute weakness Additional Impression: Pneumonia Pneumonia type: due to unspecified organism Laterality: unspecified laterality Lung location: unspecified part of lung Qualified Codes: J18.9 - Pneumonia, unspecified organism Condition: ABIODUN Brothers MD Apr 13, 2019 20:11
[2019-04-13] MEDS ORDERED: ACETAMINOPHEN 500 MG TAB PO STA (21:26)
[2019-04-13] MEDS ORDERED: AZITHROMYCIN 500MG/NS (PMX) 250 ML IVPB ONE (23:00)
[2019-04-13] MEDS ORDERED: CEFTRIAXONE 1 GM/50 ML (PMX) 50 ML IVPB ONE (23:00)
[2019-04-14] VITALS (10 sets, daily range): BP systolic 92–136; BP diastolic 59–80; PULSE 86–110; RESP 18–20; Ht 157.5 cm; Wt 63.8 kg
[2019-04-14] MEDS: MEGESTROL 40 MG TAB PO SCH ×3 (00:30→20:17)
[2019-04-14] MEDS ORDERED: ALBUTEROL/IPRATROPIUM (NEB) 3 ML AMP HHN PRN (00:30)
[2019-04-14] MEDS ORDERED: ONDANSETRON 4 MG TAB PO PRN (00:30)
[2019-04-14] MEDS ORDERED: ACETAMINOPHEN 500 MG TAB PO PRN (00:30)
[2019-04-14] MEDS: METOPROLOL 50 MG TAB PO SCH ×3 (01:16→20:15)
[2019-04-14] MEDS: LORAZEPAM 0.5 MG TAB PO PRN ×2 (01:23→21:45)
[2019-04-14] MEDS: FUROSEMIDE 40 MG TAB PO SCH (06:01)
[2019-04-14] MEDS: PANTOPRAZOLE (EC) 40 MG TAB PO SCH (06:01)
[2019-04-14] MEDS: CIPROFLOXACIN 500 MG TAB GTB SCH ×2 (06:01→18:05)
[2019-04-14] MEDS: SPIRONOLACTONE 25 MG TAB PO SCH ×2 (08:36→09:00)
[2019-04-14] MEDS: LEVOTHYROXINE 125 MCG TAB PO SCH ×2 (08:36→10:04)
[2019-04-14] MEDS: FENOFIBRATE 145 MG TAB PO SCH ×2 (08:36→09:00)
[2019-04-14] MEDS: ASPIRIN 81 MG TAB PO SCH ×2 (08:36→09:00)
[2019-04-14] MEDS: CLOPIDOGREL 75 MG TAB PO SCH ×2 (08:36→09:00)
[2019-04-14] MEDS: MAGNESIUM OXIDE 400 MG TAB PO SCH ×2 (08:37→09:00)
[2019-04-14] MEDS: FOLIC ACID 1 MG TAB PO SCH ×2 (08:37→09:00)
[2019-04-14] MEDS: POTASSIUM CHLORIDE (SR) 8 MEQ CAP PO SCH ×2 (08:37→09:00)
[2019-04-14] MEDS: LOSARTAN 50 MG TAB PO SCH ×2 (08:37→09:00)
[2019-04-14] MEDS: ISOSORBIDE MONONITRATE(SR)30 MG TAB PO SCH ×2 (08:37→09:00)
[2019-04-14] MEDS: ALBUTEROL 0.083% (NEB) 2.5 MG/3 ML AMP HHN SCH ×3 (09:04→23:13)
[2019-04-14] MEDS: morphine 2 MG INJ IV PRN ×2 (10:06→21:32)
[2019-04-14] MEDS: DIGOXIN 0.125 MG TAB PO SCH (12:29)
--- NOTE | 2019-04-14 14:21 | HP ---
Date/Time of Note Date/Time of Note DATE: 04/14/19 TIME: 14:15 Assessment/Plan VTE Prophylaxis Risk score (from Nsg)>0 risk: 4 SCD applied (from Ns): No SCD contraindicated: other (on) Pharmacological prophylaxis: LMWH Lines/Catheters IV Catheter Type (from Nrs): Saline Lock Central line still needed: No Urinary Cath still in place: No Reason Cath still needed: urinary retention Assessment/Plan Assessment/Plan 1. Severe respiratory distress with worsening of wheezing and inability to sleep. 2.IHD angina, HX of recent PTCA with one stent and 3 balloon dilatation of narrow coronary arteries(; according to the daughter). Status post stapling of mitral valve 6 months ago in [facility] with improvement of condition immediately after the procedure but still she is having frequent hospitaliz ations. Although it is evident that the cause is not over drinking possibly medication noncompliance. 3. Dysphagia to solids and sometimes to liquids now to everything. Refuses to eat secondary to pain.. 4. Pulmonary edema by x-ray with wheezing on admission, improved after lasix. Ejection fraction is visually estimated at 25-30 %. 5. History of Hodgkin lymphoma- s/p chemotherapy and hydration 10 days ago. 6. Osteoarthritis with pain syndrome 7. Anxiety disorder. 8. Depression with grief reaction-s/p loss of . 9. Urinary incontinence. 10. Osteoporosis. 11. Kyphosis. 12. Postmenopausal syndrome. 13. Anemia with nl iron. 14. Brain atrophy on CT. 15. Left sphenoid sinusitis on CT. 16. Left ventricular hypertrophy. 17. Urinary incontinence. 18.Cerebrovascular accident, with left facial drooling, left facial weakness, with slurred speech and dysphagia. Mild left upper extremity weakness.mostly corrected. 19. Hypertension, now normotensive.Cardiomegaly on cxr 20. Status post left subclavian area pacemaker implantation about 3 months ago. 21. Status post mitral valve endocardial manipulation with stapling of the valves with good clinical results. 22. Recurrent episodes of V. tach now 8 complexes on a monitor and SVT; placed on the monitor but cardiology consult. 23.Weight loss mainly due to of not eating well. 24.Sleeplessness 25.Poor self expression capacity and getting worse. Talks for minutes but unable to conclude talk or be precise. 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 20.Medication noncompliance. Result Diagram: 04/14/19 0548 04/14/19 0548 Results 24hrs Laboratory Tests Test 04/13/19 20:04 04/13/19 22:04 04/14/19 05:48 White Blood Count 6.5 5.7 Red Blood Count 4.56 4.23 Hemoglobin 12.3 11.4 L Hematocrit 40.8 37.3 Mean Corpuscular Volume 89.5 88.2 Mean Corpuscular Hemoglobin 27.0 L 27.0 L Mean Corpuscular 30.1 L 30.6 L Hemoglobin Concent Red Cell Distribution Width 16.5 H 16.6 H Platelet Count 259 # 221 Mean Platelet Volume 11.1 H 11.0 H Immature Granulocytes % 0.200 0.200 Neutrophils % 76.7 72.3 Lymphocytes % 14.0 L 16.2 Monocytes % 8.0 10.5 Eosinophils % 0.6 0.5 Basophils % 0.5 0.3 Nucleated Red Blood Cells % 0.0 0.0 Immature Granulocytes # 0.010 0.010 Neutrophils # 5.0 4.1 Lymphocytes # 0.9 0.9 Monocytes # 0.5 0.6 Eosinophils # 0.0 0.0 Basophils # 0.0 0.0 Nucleated Red Blood Cells # 0.0 0.0 Prothrombin Time 13.8 Prothrombin Time Ratio 1.1 INR International 1.05 Normalized Ratio Activated Partial Thromboplast 27.1 Time Sodium Level 142 142 Potassium Level 4.1 4.0 Chloride Level 105 107 Carbon Dioxide Level 25 26 Anion Gap 12 9 Blood Urea Nitrogen 15 15 Creatinine 0.87 0.76 Est Glomerular Filtrat Rate mL/min Glucose Level 157 99 # Calcium Level 9.6 9.3 Total Bilirubin 0.8 0.6 Direct Bilirubin 0.00 0.00 Indirect Bilirubin 0.8 0.6 Aspartate Amino 24 28 Transf (AST/SGOT) Alanine 19 15 Aminotransferase (ALT/SGPT) Alkaline Phosphatase 62 51 Troponin I 0.043 B-Type Natriuretic Peptide 8920 H Total Protein 7.5 6.5 # Albumin 4.3 3.7 Globulin 3.20 2.80 Albumin/Globulin Ratio 1.34 1.32 Lipase 119 Thyroid Stimulating 2.600 Hormone (TSH) Urine Color YELLOW Urine Clarity SLIGHTLY CLOUDY A Urine pH 6.0 Urine Specific [place] 1.015 Urine Ketones NEGATIVE Urine Nitrite NEGATIVE Urine Bilirubin NEGATIVE Urine Urobilinogen 1+ H Urine Leukocyte Esterase 2+ H Urine Microscopic RBC 1 Urine Microscopic WBC 20 H Urine Squamous Epithelial Cells FEW Urine Bacteria FEW A Urine Mucus FEW A Urine Hemoglobin NEGATIVE Urine Glucose NEGATIVE Urine Total Protein NEGATIVE D-Dimer 819.68 #H D-Dimer Comment Magnesium Level 2.3 Digoxin Level 0.6 L HPI/ROS Admit Date/Time Admit Date/Time Apr 13, 2019 at 22:46 Hx of Present Illness Dysphagia with painful swallowing and cough while eating, getting worse now with worsening of sob. F/C x 2 days. Food stays in upper and mid esophageal areas. ROS Constitutional: chills, diaphoresis, fatigue, febrile, nausea, poor po, weight change (lost doesn't know how much.); No no complaints, No improved, No disoriented, No other Eyes: No no complaints, No pain, No discharge, No redness, No visual change, No other ENT: congestion, dysphagia, sore throat; No no complaints, No bleeding, No pain, No discharge, No other Respiratory: cough, pleuritic pain, shortness of breath, sputum, wheezing Cardiovascular: chest pain, edema, lightheadedness, orthopenea, palpitations, paroxysmal nocturnal dyspnea; No no complaints, No other Gastrointestinal: constipation, decreased appetite, flatus, nausea, passing stool; No no complaints, No pain, No blood, No diarrhea, No vomiting, No other Genitourinary: dysuria, flank pain; No no complaints, No bleeding, No discharge, No hematuria, No other Musculoskeletal: back pain, bone/joint pain; No no complaints, No neck pain, No restricted range of motion, No swelling, No other Skin: bruising, rash; No no complaints, No erythema, No laceration, No pruritis, No skin lesions, No other Neurologic: dizziness, headache, other (s/p fall according to the son.); No no complaints, No confusion, No focal-weakness, No syncope, No seizure Endocrine: dry skin; No no complaints, No polyuria, No polydypsia, No temp intolerance, No weight change, No other Lymphatic: No no complaints, No adenopathy, No tender nodes, No lymphadema, No other PMH/Family/Social Past Medical History Medical History: angina, congestive heart failure, coronary artery disease, diabetes, GERD, high cholesterol, hypertension, irritable bowel syndrome, pancreatitis, renal disease, urinary tract infection Medications Current Medications Acetaminophen (Tylenol Tab) 500 mg Q8 PRN PO pain and temp. more then 99F; Start 04/14/19 at 00:30 Albuterol (Proventil 0.083% (Neb)) 2.5 mg Q8H RESP THERAPY HHN Last administered on 04/14/19at 09:04; Admin Dose 2.5 MG; Start 04/14/19 at 08:00 Aspirin (Aspirin) 81 mg DAILY PO ; Start 04/14/19 at 09:00 Clopidogrel Bisulfate (plaVIX) 75 mg DAILY PO ; Start 04/14/19 at 09:00 Digoxin (Digoxin) 0.125 mg DAILY@1300 PO ; Start 04/14/19 at 13:00 Folic Acid (Folic Acid) 1 mg DAILY PO ; Start 04/14/19 at 09:00 Furosemide (Lasix) 40 mg DAILY@0600 PO Last administered on 04/14/19at 06:01; Admin Dose 40 MG; Start 04/14/19 at 06:00 Albuterol/ Ipratropium (Duoneb) 3 ml Q4H RESP THERAPY PRN HHN SHORTNESS OF BREATH; Start 04/14/19 at 00:30 Isosorbide Mononitrate (Imdur) 30 mg DAILY PO ; Start 04/14/19 at 09:00 Levothyroxine Sodium (Synthroid) 125 mcg BEFORE BREAKFAST PO ; Start 04/14/19 at 07:00 Lorazepam (Ativan) 0.5 mg Q8 PRN PO ANXIETY Last administered on 04/14/19at 01:23; Admin Dose 0.5 MG; Start 04/14/19 at 00:30 Magnesium Oxide (Mag-Ox 400) 400 mg DAILY PO ; Start 04/14/19 at 09:00 Megestrol Acetate (Megace) 40 mg BID PO Last administered on 04/14/19at 08:37; Admin Dose 40 MG; Start 04/14/19 at 00:30 Metoprolol Tartrate (Lopressor) 50 mg BID PO Last administered on 04/14/19at 08:37; Admin Dose 50 MG; Start 04/14/19 at 00:30 Ondansetron HCl (Zofran Tab) 4 mg Q6H PRN PO nausea/vomiting; Start 04/14/19 at 00:30 Potassium Chloride (Micro-K) 8 meq DAILY PO ; Start 04/14/19 at 09:00 Spironolactone (Aldactone) 25 mg DAILY PO ; Start 04/14/19 at 09:00 Pantoprazole (Protonix Tab) 40 mg DAILY@06 PO Last administered on 04/14/19at 06:01; Admin Dose 40 MG; Start 04/14/19 at 06:00 Fenofibrate (Tricor) 145 mg DAILY PO ; Start 04/14/19 at 09:00 Losartan Potassium (Cozaar) 100 mg DAILY PO ; Start 04/14/19 at 09:00 Ciprofloxacin (Cipro) 500 mg BID@18 GTB Last administered on 04/14/19at 06:01; Admin Dose 500 MG; Start 04/14/19 at 06:00; Stop 04/17/19 at 09:00 Azithromycin 250 ml @ 250 mls/hr Q24H IVPB ; Start 04/14/19 at 23:00 Acetaminophen (Tylenol Tab) 500 mg Q8 PRN PO MILD PAIN(1-3)OR ELEVATED TEMP Last administered on 04/14/19at 08:56; Admin Dose 500 MG; Start 04/14/19 at 00:30 Morphine Sulfate (morphine) 1 mg Q4H PRN IV SEVERE PAIN LEVEL 7-10 Last administered on 04/14/19at 10:06; Admin Dose 1 MG; Start 04/14/19 at 00:30 Coded Allergies: vancomycin (Verified Allergy, Mild, REDNESS AND ITCHING, 03/20/18) Past Surgical History Past Surgical Hx: angioplasty Family History Significant Family History: no pertinent family hx Social History Alcohol Use: none Smoking Status: Never smoker Drug Use: none Exam/Review of Systems Vital Signs Vitals Vital Signs Date Temp Pulse Resp B/P (MAP) Pulse Ox O2 O2 Flow FiO2 Time Delivery Rate 04/14/19 95 12:01 04/14/19 98.6 20 104/63 94 Room Air 11:36 (77) 04/14/19 21 09:04 Intake and Output 04/13/19 04/13/19 04/14/19 1515:00 23:00 07:00 IntakeIntake Total 400 ml BalanceBalance 400 ml Exam Constitutional: alert, oriented, well developed, distress, frail; No non-verbal, No other Psych: no complaints, nl mood/affect, anxiety, depression; No confusion, No suicidal, No other Head: normocephalic, atraumatic; No lacerations, No hematomas, No other Eyes: EOMI, nl lids, PERRL; No nl conjunctiva, No nl sclera, No icteric, No fundi, disc, No other ENMT: nl external ears & nose, nl nasal mucosa & septum, mucosa pink and moist, tympanic membranes; No nl lips & teeth, No intubated, No other Neck: bruits, nuchal rigidity; No supple, No non-tender, No jvd, No masses, No thyromegaly, No other Respiratory: normal air movement, congested cough, crackles/rales, diminished breath sounds; No clear to auscultation, No intercostal retraction, No labored breathing, No respirations, No tactile fremitus, No wheezing, No other Cardiovascular: regular rate and rhythm, edema, systolic murmur Gastrointestinal: soft, nl liver, spleen, bowel sounds Genitourinary - Female: nl adnexae, nl external genitalia; No CMT, No CVA tenderness, No uterus, No other Musculoskeletal: nl gait and stance, joint tenderness, muscle tone, muscle weakness; No nl extremities to inspection, No range of motion, No spine non-tender, No swelling, No other Extremities: No normal pulses, No calf tenderness, No cyanosis, No clubbing, No edema, No pitting pedal edema, No palpable cord, No tenderness, No other 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
--- NOTE | 2019-04-14 16:45 | CONS ---
DATE OF ADMISSION: 04/13/2019 DATE OF CONSULTATION: 04/14/2019 TYPE OF CONSULTATION: Cardiology REFERRING PHYSICIAN: Princess Kruse MD REASON FOR EVALUATION: Nonsustained ventricular tachycardia. HISTORY OF PRESENT ILLNESS: Ms. Gracia is a 73-year-old woman, my office patient, who has a hist ory of hypertension, dyslipidemia, history of coronary artery disease, history of heart failure with ejection fraction 25% to 30%, prior history of PTCA and stenting last time in 2017, who comes to the hospital now for evaluation of throat discomfort and chest pain. The patient does not appear to be w ith significant degree of heart failure at this particular point. She appears to be fairly comfortab le on examination, although she does have evidence of nonsustained ventricular tachycardia here and t he patient had last stress test in 02/2019, which showed ejection fraction of 90% with no reversible ischemia. The patient does have a defibrillator in place to protect her from sudden cardiac . The patient is hemodynamically stable at this particular point. For now, conservative therapy is exp ected. We will adjust medications as needed. I will provide more recommendations for her care as mo re information of her condition becomes available. PAST MEDICAL HISTORY: 1. History of hypertension. 2. History of dyslipidemia. 3. Cardiomyopathy with EF last of 20%. 4. Defibrillator. 5. History of lymphoma. 6. History of shortness of breath. ALLERGIES: NO KNOWN DRUG ALLERGIES. SOCIAL HISTORY: The patient does not smoke, does not drink, does not do drugs. FAMILY HISTORY: Negative for sudden cardiac or premature coronary artery disease. MEDICATIONS: Here include: 1. Azithromycin. 2. Digoxin 0.125 mg daily. 3. Aspirin 81 mg daily. 4. Plavix. 5. Iron supplement. 6. Losartan 100 mg daily. 7. Albuterol. 8. Lasix. 9. Pantoprazole. 10. Metoprolol titrate 50 mg p.o. b.i.d. 11. Morphine sulfate. REVIEW OF SYSTEMS: CONSTITUTIONAL: No fevers, no chills. Recent chest discomfort, but not midsternal but rather to the right side as well as throat pain. RESPIRATORY: Chronic shortness of breath. GASTROINTESTINAL: No nausea, vomiting. GENITOURINARY: No dysuria, hematuria. NEUROLOGIC: No focal deficits. HEMATOLOGIC: No easy bruising. PSYCHIATRIC: History of anxiety. PHYSICAL EXAMINATION: VITAL SIGNS: Temperature is 98.6, heart rate 93, blood pressure 104/63. GENERAL: She is well-nourished woman in no acute distress, alert and oriented x3, somewhat aware of her condition. HEENT: Head is normocephalic, atraumatic. Eyes are anicteric. NECK: Supple. JVD is 6 to 7 cm. There is no lymphadenopathy, no thyromegaly. HEART: Regular, soft holosystolic murmur. PMI displaced leftward. ICD site is well healed. LUNGS: Coarse to base. ABDOMEN: Distended. Bowel sounds are present. There is no hepatosplenomegaly. GENITOURINARY: Intact. EXTREMITIES: Trace edema. LABORATORY DATA: White blood cell count 5.7, hemoglobin 9.3, platelets 221. Her INR is 1.0. Sodium 142, potassium 4.0, BUN is 15, creatinine 0.9. Troponin is negative at 0.043. ASSESSMENT AND PLAN: 1. Cardiomyopathy. The patient has history of cardiomyopathy. She is in good medical therapy. We will keep the patient euvolemic. The patient's ICD appears to be well placed by chest x-ray. There is no evidence of malfunction here. 2. History of hypertension. Blood pressure is well controlled. Continue to adjust medicines as nee ded. 3. Prior history of lymphoma. Defer to primary team for further evaluation and management. 4. Anxiety. Continue to monitor. 5. Difficulty swallowing. This is likely chronic problem. Dr. Kruse will follow. 6. History of mitral valve clipping. There is no significant murmur. The patient had a 2D echo rec ently. I do not think further evaluation is needed. I would like to thank Dr. Kruse for referring this patient for my evaluation. Dictated By: BEULAH MONTGOMERY MD ML/NTS Conf#: [id number] DID#: [id number] CC: PRINCESS KRUSE MD;*EndCC*
--- NOTE | 2019-04-14 17:45 | CONS ---
DATE OF ADMISSION: 04/13/2019 DATE OF CONSULTATION: 04/14/2019 TYPE OF CONSULTATION: Infectious disease. REASON FOR CONSULTATION: Antibiotic management. HISTORY OF PRESENT ILLNESS: Denny Gracia is a 73-year-old Urdu [place] female patient of Gina Kruse. She is on [place] female with a history of lymphoma who presents with genera lized weakness. She denies fever. She has had some anorexia. Past problems Include as noted lympho ma with chemotherapy. She had right eye cataract surgery. She had a CVA. Other problems include hy pertension, coronary artery disease, PTCA with stent and congestive heart failure. She also has anxi ety and depression. PAST MEDICAL HISTORY: As outlined. FAMILY HISTORY: Noncontributory. SOCIAL HISTORY: She does not smoke, drink or abuse drugs. ALLERGIES: NONE TO PENICILLIN, SULFA OR FOODS. MEDICATIONS: Per chart. REVIEW OF SYSTEMS: As per HPI. PHYSICAL EXAMINATION: GENERAL: The patient is a chronically ill-appearing female who appears older than her stated age. VITAL SIGNS: Stable. She is afebrile. SKIN: Without generalized rash. HEENT: Within normal limits. NECK: Supple. LYMPH NODES: None palpable. CHEST: Decreased breath sounds at the bases. HEART: Without murmur or gallop. ABDOMEN: Soft, nontender without organosplenomegaly or masses. EXTREMITIES: Without cyanosis, clubbing or edema. RECTAL AND GENITAL: Deferred. NEUROLOGIC: No focal neurological abnormality. HOSPITAL COURSE: White count is 6.5, H and H of 12.3 and 40.8, platelet count of 269,000. BUN and c reatinine of 15/0.87, glucose 157. Neutrophils of 77%. The Patient was started on azithromycin and ceftriaxone for community-acquired pneumonia. Chest x-ray showed left-sided atelectasis versus pneum onia. She has a permanent pacemaker, internal cardiac defibrillator, 2 mitral clips, otherwise unrem arkable chest radiographs. White count today is 5.7. Urine showed 2+ leukocyte esterase, 20 white c ells per high powered field, also possible source of infection. According to Dr. Kruse, she has severe respiratory distress and worsening of the wheezing and inability to sleep. She has angina. S he has 1 stent and 3 balloon dilatations of the narrowed coronary arteries, status post stapling of m itral valve 6 months ago at [facility]. She has some dysphagia, pulmonary edema, history of Hodgki n's lymphoma, osteoarthritis, cerebrovascular accident with left facial droop, left facial weakness w ith slurred speech and dysphagia, mild left upper extremity weakness mostly corrected, status post le ft subclavian artery pacemaker implantation 3 months ago, status post mitral valve manipulati on as noted previously. We will continue her on current therapy. She has recurrent episodes of V-ta ch, being seen by cardiology. I will dictate my findings to Dr. Kruse. I want to thank him for asking us to see this heather lady in consultation. Dictated By: LINDSAY BELL MD, JD/CECILIA Conf#: [id number] DID#: [id number] CC: PEDRO KRUSE MD;*EndCC*
--- NOTE | 2019-04-14 19:31 | CONS ---
Assessment/Plan Assessment/Plan Assessment/Plan (Daily) IMP: 1. Dyspnea--in a patient with ischemic CMY and HFrEF. Findings most consistent with mild ADHF with associated type II NSTEMI 2. ADHF 3. Type II NSTEMI 4. CAD 5. UTI RECS: 1. Diuresis 2. Afterload reduction as per CV 3. Follow TnI 4. Am CXR 5. De-escalate Abx Consultation Date/Type/Reason Admit Date/Time Apr 13, 2019 at 22:46 Date of Consultation: Apr 14, 2019 Type of Consult Pulm Date/Time of Note DATE: 04/14/19 TIME: 19:27 Hx of Present Illness Briefly, this is a 73-year-old woman with a history of hypertension, dyslipidemia, history of coronary artery disease, history of heart failure with ejection fraction 25% to 30%, prior history of PTCA and stenting presenting with increased dyspnea and orthopnea. Constitutional: no complaints Eyes: no complaints ENT: no complaints Respiratory: shortness of breath Cardiovascular: chest pain Gastrointestinal: no complaints Genitourinary: no complaints Musculoskeletal: no complaints Skin: no complaints Neurologic: no complaints Endocrine: no complaints Lymphatic: no complaints Psychological: no complaints Immunologic: no complaints Past Medical History Medical History: angina, congestive heart failure, coronary artery disease, diabetes, GERD, high cholesterol, hypertension, irritable bowel syndrome, pancreatitis, renal disease, urinary tract infection Home Meds Active Scripts Ipratropium-Albuterol (Ipratropium-Albuterol) 0.5-3 Mg/3 Ml Ampul.neb, 3 ML HHN Q4H RESP THERAPY PRN for SHORTNESS OF BREATH for 30 Days, #90 Prov:PEDRO KRUSE MD 09/16/18 Albuterol Sulfate* (Albuterol Sulfate* Neb) 0.083%-3 Ml Neb, 2.5 MG HHN Q8H RESP THERAPY for 90 Days, #90 CAP 2 Refills Prov:PEDRO KRUSE MD 09/16/18 Fenofibrate* (Fenofibrate*) 200 Mg Cap, 200 MG PO DAILY for 30 Days, #30 CAP Prov:PEDRO KRUSE MD 09/16/18 Furosemide* (Furosemide*) 40 Mg Tablet, 40 MG PO DAILY for 30 Days, #30 TAB Prov:PEDRO KRUSE MD 09/16/18 Spironolactone* (Aldactone*) 25 Mg Tablet, 25 MG PO DAILY, #30 TAB Prov:PEDRO KRUSE MD 09/16/18 Megestrol Acetate* (Megace*) 40 Mg Tab, 40 MG PO BID for 60 Days, #30 TAB Prov:PEDRO KRUSE MD 09/16/18 Digoxin* (Lanoxin*) 0.125 Mg Tablet, 0.125 MG PO DAILY for 30 Days, #30 TAB Prov:PEDRO KRUSE MD 09/16/18 Potassium Chloride* (Potassium Chloride*) 8 Meq Capsule.er, 8 MEQ PO DAILY for 30 Days, #30 CAP Prov:PEDRO KRUSE MD 09/16/18 Isosorbide Mononitrate* (Isosorbide Mononitrate*) 30 Mg Tab.er.24h, 30 MG PO DAILY for 30 Days, #30 TAB Prov:PEDRO KRUSE MD 09/16/18 Clopidogrel Bisulfate (Clopidogrel) 75 Mg Tablet, 75 MG PO DAILY, #30 TAB Prov:PEDRO KRUSE MD 09/16/18 Acetaminophen* (Tylenol*) 500 Mg Tab, 500 MG PO Q8 PRN for pain and temp. more then 99F for 30 Days, #90 TAB Prov:PEDRO KRUSE MD 09/16/18 Metoprolol Tartrate* (Lopressor*) 50 Mg Tab, 50 MG PO BID, #60 TAB Prov:PEDRO KRUSE MD 09/16/18 Folic Acid* (Folic Acid*) 1 Mg Tablet, 1 MG PO DAILY for 30 Days, #30 TAB Prov:PEDRO KRUSE MD 09/16/18 Losartan-Hydrochlorothiazide (Losartan-HCTZ) 100-25 Mg Tab, 1 TAB PO DAILY for 30 Days, #30 TAB Prov:PEDRO KRUSE MD 09/16/18 Aspirin* (Aspirin* Chew) 81 Mg Tab.chew, 81 MG PO DAILY for 30 Days, #30 TAB.CHEW Prov:PEDRO KRUSE MD 09/16/18 Reported Medications Levothyroxine Sodium* (Levothyroxine Sodium*) 125 Mcg Tablet, 125 MCG PO BEFORE BREAKFAST, #30 TAB 02/11/19 Esomeprazole Mag Trihydrate (Nexium) 40 Mg Capsule.dr, 40 MG PO DAILY, #30 CAP 02/11/19 Lorazepam* (Lorazepam*) 0.5 Mg Tablet, 0.5 MG PO Q8 PRN for ANXIETY, TAB 02/11/19 Magnesium Oxide* (Magnesium Oxide*) 400 Mg Tablet, 400 MG PO DAILY, TAB 02/11/19 Ondansetron Hcl* (Ondansetron Hcl*) 4 Mg Tablet, 4 MG PO Q6H PRN for nausea/vomiting, TAB 02/11/19 Ergocalciferol* (Drisdol* (Vitamin D2)) 50,000 Unit Capsule, 72825 UNIT PO Q7D for 30 Days, #4 CAP 08/04/16 Medications Current Medications Acetaminophen (Tylenol Tab) 500 mg Q8 PRN PO pain and temp. more then 99F; Start 04/14/19 at 00:30 Albuterol (Proventil 0.083% (Neb)) 2.5 mg Q8H RESP THERAPY HHN Last administered on 04/14/19at 09:04; Admin Dose 2.5 MG; Start 04/14/19 at 08:00 Aspirin (Aspirin) 81 mg DAILY PO ; Start 04/14/19 at 09:00 Clopidogrel Bisulfate (plaVIX) 75 mg DAILY PO ; Start 04/14/19 at 09:00 Digoxin (Digoxin) 0.125 mg DAILY@1300 PO ; Start 04/14/19 at 13:00 Folic Acid (Folic Acid) 1 mg DAILY PO ; Start 04/14/19 at 09:00 Furosemide (Lasix) 40 mg DAILY@0600 PO Last administered on 04/14/19at 06:01; Admin Dose 40 MG; Start 04/14/19 at 06:00 Albuterol/ Ipratropium (Duoneb) 3 ml Q4H RESP THERAPY PRN HHN SHORTNESS OF BREATH; Start 04/14/19 at 00:30 Isosorbide Mononitrate (Imdur) 30 mg DAILY PO ; Start 04/14/19 at 09:00 Levothyroxine Sodium (Synthroid) 125 mcg BEFORE BREAKFAST PO ; Start 04/14/19 at 07:00 Lorazepam (Ativan) 0.5 mg Q8 PRN PO ANXIETY Last administered on 04/14/19at 01:2 3; Admin Dose 0.5 MG; Start 04/14/19 at 00:30 Magnesium Oxide (Mag-Ox 400) 400 mg DAILY PO ; Start 04/14/19 at 09:00 Megestrol Acetate (Megace) 40 mg BID PO Last administered on 04/14/19at 08:37; Admin Dose 40 MG; Start 04/14/19 at 00:30 Metoprolol Tartrate (Lopressor) 50 mg BID PO Last administered on 04/14/19at 08:37; Admin Dose 50 MG; Start 04/14/19 at 00:30 Ondansetron HCl (Zofran Tab) 4 mg Q6H PRN PO nausea/vomiting; Start 04/14/19 at 00:30 Potassium Chloride (Micro-K) 8 meq DAILY PO ; Start 04/14/19 at 09:00 Spironolactone (Aldactone) 25 mg DAILY PO ; Start 04/14/19 at 09:00 Pantoprazole (Protonix Tab) 40 mg DAILY@06 PO Last administered on 04/14/19at 06:01; Admin Dose 40 MG; Start 04/14/19 at 06:00 Fenofibrate (Tricor) 145 mg DAILY PO ; Start 04/14/19 at 09:00 Losartan Potassium (Cozaar) 100 mg DAILY PO ; Start 04/14/19 at 09:00 Ciprofloxacin (Cipro) 500 mg BID@06,18 GTB Last administered on 04/14/19at 18:05; Admin Dose 500 MG; Start 04/14/19 at 06:00; Stop 04/17/19 at 09:00 Azithromycin 250 ml @ 250 mls/hr Q24H IVPB ; Start 04/14/19 at 23:00 Acetaminophen (Tylenol Tab) 500 mg Q8 PRN PO MILD PAIN(1-3)OR ELEVATED TEMP Last administered on 04/14/19at 08:56; Admin Dose 500 MG; Start 04/14/19 at 00:30 Morphine Sulfate (morphine) 1 mg Q4H PRN IV SEVERE PAIN LEVEL 7-10 Last administered on 04/14/19at 10:06; Admin Dose 1 MG; Start 04/14/19 at 00:30 Zolpidem Tartrate (Ambien) 10 mg HS PRN PO INSOMNIA; Start 04/14/19 at 14:30 Allergies: Coded Allergies: vancomycin (Verified Allergy, Mild, REDNESS AND ITCHING, 03/20/18) Past Surgical History Past Surgical Hx: angioplasty Social History Alcohol Use: none Smoking Status: Never smoker Drug Use: none Exam/Review of Systems Exam Vitals Vital Signs Date Temp Pulse Resp B/P (MAP) Pulse Ox O2 O2 Flow FiO2 Time Delivery Rate 04/14/19 106 16:01 04/14/19 97.8 20 113/67 98 Room Air 15:21 (82) 04/14/19 21 09:04 Intake and Output 04/13/19 04/13/19 04/14/19 1515:00 23:00 07:00 IntakeIntake Total 400 ml BalanceBalance 400 ml Constitutional: alert, oriented, well developed Psych: no complaints, nl mood/affect Head: normocephalic, atraumatic Eyes: nl conjunctiva, EOMI, nl lids, nl sclera ENMT: nl nasal mucosa & septum, mucosa pink and moist Neck: supple, non-tender, jvd Respiratory: crackles/rales Cardiovascular: irregular rhythm, jugular venous distention (JVD), systolic murmur Gastrointestinal: soft, nl liver, spleen, non-tender Musculoskeletal: nl extremities to inspection Extremities: normal pulses, edema 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: ERP PROGRAMMER II-XII intact, DTR's symmetric Results Result Diagram: 04/14/19 0548 04/14/19 0548 Results 24hrs Laboratory Tests Test 04/13/19 20:04 04/13/19 22:04 04/14/19 05:48 04/14/19 15:03 White Blood Count 6.5 5.7 Red Blood Count 4.56 4.23 Hemoglobin 12.3 11.4 L Hematocrit 40.8 37.3 Mean Corpuscular 89.5 88.2 Volume Mean Corpuscular 27.0 L 27.0 L Hemoglobin Mean Corpuscular 30.1 L 30.6 L Hemoglobin Concent Red Cell 16.5 H 16.6 H Distribution Width Platelet Count 259 # 221 Mean Platelet 11.1 H 11.0 H Volume Immature 0.200 0.200 Granulocytes % Neutrophils % 76.7 72.3 Lymphocytes % 14.0 L 16.2 Monocytes % 8.0 10.5 Eosinophils % 0.6 0.5 Basophils % 0.5 0.3 Nucleated Red 0.0 0.0 Blood Cells % Immature 0.010 0.010 Granulocytes # Neutrophils # 5.0 4.1 Lymphocytes # 0.9 0.9 Monocytes # 0.5 0.6 Eosinophils # 0.0 0.0 Basophils # 0.0 0.0 Nucleated Red 0.0 0.0 Blood Cells # Prothrombin Time 13.8 Prothrombin Time 1.1 Ratio INR International 1.05 Normalized Ratio Activated 27.[address] Time Sodium Level 142 142 Potassium Level 4.1 4.0 Chloride Level 105 107 Carbon Dioxide 25 26 Level Anion Gap 12 9 Blood Urea 15 15 Nitrogen Creatinine 0.87 0.76 Est Glomerular Filtrat Rate mL/min Glucose Level 157 99 # Calcium Level 9.6 9.3 Total Bilirubin 0.8 0.6 Direct Bilirubin 0.00 0.00 Indirect Bilirubin 0.8 0.6 Aspartate Amino 24 28 Transf (AST/SGOT) Alanine 19 15 Aminotransferase ( ALT/SGPT) Alkaline 62 51 Phosphatase Troponin I 0.043 1.010 *H B-Type Natriuretic 8920 H Peptide Total Protein 7.5 6.5 # Albumin 4.3 3.7 Globulin 3.20 2.80 Albumin/Globulin 1.34 1.32 Ratio Lipase 119 Thyroid 2.600 Stimulating Hormone (TSH) Urine Color YELLOW Urine Clarity SLIGHTLY CLOUDY A Urine pH 6.0 Urine Specific 1.015 [place] Urine Ketones NEGATIVE Urine Nitrite NEGATIVE Urine Bilirubin NEGATIVE Urine Urobilinogen 1+ H Urine Leukocyte 2+ H Esterase Urine Microscopic 1 RBC Urine Microscopic 20 H WBC Urine Squamous FEW Epithelial Cells Urine Bacteria FEW A Urine Mucus FEW A Urine Hemoglobin NEGATIVE Urine Glucose NEGATIVE Urine Total NEGATIVE Protein D-Dimer 819.68 #H D-Dimer Comment Magnesium Level 2.3 Digoxin Level 0.6 L Medications Medication Current Medications Acetaminophen (Tylenol Tab) 500 mg Q8 PRN PO pain and temp. more then 99F; Start 04/14/19 at 00:30 Albuterol (Proventil 0.083% (Neb)) 2.5 mg Q8H RESP THERAPY HHN Last administered on 04/14/19at 09:04; Admin Dose 2.5 MG; Start 04/14/19 at 08:00 Aspirin (Aspirin) 81 mg DAILY PO ; Start 04/14/19 at 09:00 Clopidogrel Bisulfate (plaVIX) 75 mg DAILY PO ; Start 04/14/19 at 09:00 Digoxin (Digoxin) 0.125 mg DAILY@1300 PO ; Start 04/14/19 at 13:00 Folic Acid (Folic Acid) 1 mg DAILY PO ; Start 04/14/19 at 09:00 Furosemide (Lasix) 40 mg DAILY@0600 PO Last administered on 04/14/19at 06:01; Admin Dose 40 MG; Start 04/14/19 at 06:00 Albuterol/ Ipratropium (Duoneb) 3 ml Q4H RESP THERAPY PRN HHN SHORTNESS OF BREATH; Start 04/14/19 at 00:30 Isosorbide Mononitrate (Imdur) 30 mg DAILY PO ; Start 04/14/19 at 09:00 Levothyroxine Sodium (Synthroid) 125 mcg BEFORE BREAKFAST PO ; Start 04/14/19 at 07:00 Lorazepam (Ativan) 0.5 mg Q8 PRN PO ANXIETY Last administered on 04/14/19at 01:23; Admin Dose 0.5 MG; Start 04/14/19 at 00:30 Magnesium Oxide (Mag-Ox 400) 400 mg DAILY PO ; Start 04/14/19 at 09:00 Megestrol Acetate (Megace) 40 mg BID PO Last administered on 04/14/19at 08:37; Admin Dose 40 MG; Start 04/14/19 at 00:30 Metoprolol Tartrate (Lopressor) 50 mg BID PO Last administered on 04/14/19at 08:37; Admin Dose 50 MG; Start 04/14/19 at 00:30 Ondansetron HCl (Zofran Tab) 4 mg Q6H PRN PO nausea/vomiting; Start 04/14/19 at 00:30 Potassium Chloride (Micro-K) 8 meq DAILY PO ; Start 04/14/19 at 09:00 Spironolactone (Aldactone) 25 mg DAILY PO ; Start 04/14/19 at 09:00 Pantoprazole (Protonix Tab) 40 mg DAILY@06 PO Last administered on 04/14/19at 06:01; Admin Dose 40 MG; Start 04/14/19 at 06:00 Fenofibrate (Tricor) 145 mg DAILY PO ; Start 04/14/19 at 09:00 Losartan Potassium (Cozaar) 100 mg DAILY PO ; Start 04/14/19 at 09:00 Ciprofloxacin (Cipro) 500 mg BID@18 GTB Last administered on 04/14/19at 18:05; Admin Dose 500 MG; Start 04/14/19 at 06:00; Stop 04/17/19 at 09:00 Azithromycin 250 ml @ 250 mls/hr Q24H IVPB ; Start 04/14/19 at 23:00 Acetaminophen (Tylenol Tab) 500 mg Q8 PRN PO MILD PAIN(1-3)OR ELEVATED TEMP Last administered on 04/14/19at 08:56; Admin Dose 500 MG; Start 04/14/19 at 00:30 Morphine Sulfate (morphine) 1 mg Q4H PRN IV SEVERE PAIN LEVEL 7-10 Last administered on 04/14/19at 10:06; Admin Dose 1 MG; Start 04/14/19 at 00:30 Zolpidem Tartrate (Ambien) 10 mg HS PRN PO INSOMNIA; Start 04/14/19 at 14:30 JACKLYN WYATT MD Apr 14, 2019 19:31
--- NOTE | 2019-04-14 21:59 | CONS ---
Assessment/Plan Assessment/Plan Hospital Course (Demo Recall) Hodgkin lymphoma- s/p chemotherapy PT HAS PROGRESSIVE REFRACTOPY DIS POST CHEMP AMD IMMUNOTHERAPY RADONC EVAL Anemia WITH COMPONENT ACD monitor Severe respiratory distress improving. IHD angina, Low LVEF dropped. Findings most consistent with mild ADHF with associated type II NSTEMI Dysphagia to solids and sometimes to liquids. Continue w/u. Pulmonary edema by x-ray with wheezing on admission, improved after lasix. Osteoarthritis with pain syndrome Anxiety disorder. Depression with grief reaction-s/p loss of . Urinary incontinence. Osteoporosis. Kyphosis. Postmenopausal syndrome. Brain atrophy on CT. Left sphenoid sinusitis on CT. Left ventricular hypertrophy. Urinary incontinence. Cerebrovascular accident, with left facial drooling, left facial weakness, with slurred speech and dysphagia. Mild left upper extremity weakness.mostly corrected. Hypertension, now normotensive. HX of PTCA with one sent and 3 balloon dilatation of narrow coronary arteries(; ) Medication noncompliance. Consultation Date/Type/Reason Admit Date/Time Apr 13, 2019 at 22:46 Date of Consultation: Apr 14, 2019 Type of Consult [facility] Reason for Consultation HD Requesting Provider: PEDRO KRUSE MD Date/Time of Note DATE: 04/14/19 TIME: 21:51 Hx of Present Illness Ms. Gracia is a 73-year-old woman, WITH HD, who has a history of hypertension, dyslipidemia, history of coronary artery disease, history of heart failure with ejection fraction 25% to 30%, prior history of PTCA and stenting last time in 2016, who comes to the hospital now for evaluation of throat discomfort and chest pain. The patient does not appear to be with significant degree of heart failure at this particular point. She appears to be fairly comfortable on examination, although she does have evidence of nonsustained ventricular tachycardia here and the patient had last stress test in 02/2019, which showed ejection fraction of 90% with no reversible ischemia. The patient does have a defibrillator in place to protect her from sudden cardiac . The patient is hemodynamically stable at this particular point. SHE HAS PROGRESSIVE REFRACTORY DIS AND HAS DIFFICULTIES WITH CHEMO AND PROGRESSING POST IMMUNOTHERAPY I WAS ASKED TO [facility] CONSULT PAST MEDICAL HISTORY: 1. History of hypertension. 2. History of dyslipidemia. 3. Cardiomyopathy with EF last of 20%. 4. Defibrillator. 5. History of lymphoma.- HD 6. History of shortness of breath. ALLERGIES: NO KNOWN DRUG ALLERGIES. SOCIAL HISTORY: The patient does not smoke, does not drink, does not do drugs. FAMILY HISTORY: Negative for sudden cardiac or premature coronary artery disease. MEDICATIONS: Here include: 1. Azithromycin. 2. Digoxin 0.125 mg daily. 3. Aspirin 81 mg daily. 4. Plavix. 5. Iron supplement. 6. Losartan 100 mg daily. 7. Albuterol. 8. Lasix. 9. Pantoprazole. 10. Metoprolol titrate 50 mg p.o. b.i.d. 11. Morphine sulfate. REVIEW OF SYSTEMS: CONSTITUTIONAL: No fevers, no chills. Recent chest discomfort, but not midsternal but rather to the right side as well as throat pain. RESPIRATORY: Chronic shortness of breath. GASTROINTESTINAL: No nausea, vomiting. GENITOURINARY: No dysuria, hematuria. NEUROLOGIC: No focal deficits. HEMATOLOGIC: No easy bruising. PSYCHIATRIC: History of anxiety. Past Medical History Medical History: angina, congestive heart failure, coronary artery disease, diabetes, GERD, high cholesterol, hypertension, irritable bowel syndrome, pancreatitis, renal disease, urinary tract infection Home Meds Active Scripts Ipratropium-Albuterol (Ipratropium-Albuterol) 0.5-3 Mg/3 Ml Ampul.neb, 3 ML HHN Q4H RESP THERAPY PRN for SHORTNESS OF BREATH for 30 Days, #90 Prov:PEDRO KRUSE MD 09/16/18 Albuterol Sulfate* (Albuterol Sulfate* Neb) 0.083%-3 Ml Neb, 2.5 MG HHN Q8H RESP THERAPY for 90 Days, #90 CAP 2 Refills Prov:PEDRO KRUSE MD 09/16/18 Fenofibrate* (Fenofibrate*) 200 Mg Cap, 200 MG PO DAILY for 30 Days, #30 CAP Prov:PEDRO KRUSE MD 09/16/18 Furosemide* (Furosemide*) 40 Mg Tablet, 40 MG PO DAILY for 30 Days, #30 TAB Prov:PEDRO KRUSE MD 09/16/18 Spironolactone* (Aldactone*) 25 Mg Tablet, 25 MG PO DAILY, #30 TAB Prov:PEDRO KRUSE MD 09/16/18 Megestrol Acetate* (Megace*) 40 Mg Tab, 40 MG PO BID for 60 Days, #30 TAB Prov:PEDRO KRUSE MD 09/16/18 Digoxin* (Lanoxin*) 0.125 Mg Tablet, 0.125 MG PO DAILY for 30 Days, #30 TAB Prov:PEDRO KRUSE MD 09/16/18 Potassium Chloride* (Potassium Chloride*) 8 Meq Capsule.er, 8 MEQ PO DAILY for 30 Days, #30 CAP Prov:PEDRO KRUSE MD 09/16/18 Isosorbide Mononitrate* (Isosorbide Mononitrate*) 30 Mg Tab.er.24h, 30 MG PO DAILY for 30 Days, #30 TAB Prov:PEDRO KRUSE MD 09/16/18 Clopidogrel Bisulfate (Clopidogrel) 75 Mg Tablet, 75 MG PO DAILY, #30 TAB Prov:PEDRO KRUSE MD 09/16/18 Acetaminophen* (Tylenol*) 500 Mg Tab, 500 MG PO Q8 PRN for pain and temp. more then 99F for 30 Days, #90 TAB Prov:PEDRO KRUSE MD 09/16/18 Metoprolol Tartrate* (Lopressor*) 50 Mg Tab, 50 MG PO BID, #60 TAB Prov:PEDRO KRUSE MD 09/16/18 Folic Acid* (Folic Acid*) 1 Mg Tablet, 1 MG PO DAILY for 30 Days, #30 TAB Prov:PEDRO KRUSE MD 09/16/18 Losartan-Hydrochlorothiazide (Losartan-HCTZ) 100-25 Mg Tab, 1 TAB PO DAILY for 30 Days, #30 TAB Prov:PEDRO KRUSE MD 09/16/18 Aspirin* (Aspirin* Chew) 81 Mg Tab.chew, 81 MG PO DAILY for 30 Days, #30 TAB.CHEW Prov:PEDRO KRUSE MD 09/16/18 Reported Medications Levothyroxine Sodium* (Levothyroxine Sodium*) 125 Mcg Tablet, 125 MCG PO BEFORE BREAKFAST, #30 TAB 02/11/19 Esomeprazole Mag Trihydrate (Nexium) 40 Mg Capsule.dr, 40 MG PO DAILY, #30 CAP 02/11/19 Lorazepam* (Lorazepam*) 0.5 Mg Tablet, 0.5 MG PO Q8 PRN for ANXIETY, TAB 02/11/19 Magnesium Oxide* (Magnesium Oxide*) 400 Mg Tablet, 400 MG PO DAILY, TAB 02/11/19 Ondansetron Hcl* (Ondansetron Hcl*) 4 Mg Tablet, 4 MG PO Q6H PRN for nausea/vomiting, TAB 02/11/19 Ergocalciferol* (Drisdol* (Vitamin D2)) 50,000 Unit Capsule, 48360 UNIT PO Q7D for 30 Days, #4 CAP 08/04/16 Medications Current Medications Acetaminophen (Tylenol Tab) 500 mg Q8 PRN PO pain and temp. more then 99F; Start 04/14/19 at 00:30 Albuterol (Proventil 0.083% (Neb)) 2.5 mg Q8H RESP THERAPY HHN Last administered on 04/14/19at 09:04; Admin Dose 2.5 MG; Start 04/14/19 at 08:00 Aspirin (Aspirin) 81 mg DAILY PO ; Start 04/14/19 at 09:00 Clopidogrel Bisulfate (plaVIX) 75 mg DAILY PO ; Start 04/14/19 at 09:00 Digoxin (Digoxin) 0.125 mg DAILY@1300 PO ; Start 04/14/19 at 13:00 Folic Acid (Folic Acid) 1 mg DAILY PO ; Start 04/14/19 at 09:00 Furosemide (Lasix) 40 mg DAILY@0600 PO Last administered on 04/14/19at 06:01; Admin Dose 40 MG; Start 04/14/19 at 06:00 Albuterol/ Ipratropium (Duoneb) 3 ml Q4H RESP THERAPY PRN HHN SHORTNESS OF BREATH; Start 04/14/19 at 00:30 Isosorbide Mononitrate (Imdur) 30 mg DAILY PO ; Start 04/14/19 at 09:00 Levothyroxine Sodium (Synthroid) 125 mcg BEFORE BREAKFAST PO ; Start 04/14/19 at 07:00 Lorazepam (Ativan) 0.5 mg Q8 PRN PO ANXIETY Last administered on 04/14/19at 21:45; Admin Dose 0.5 MG; Start 04/14/19 at 00:30 Magnesium Oxide (Mag-Ox 400) 400 mg DAILY PO ; Start 04/14/19 at 09:00 Megestrol Acetate (Megace) 40 mg BID PO Last administered on 04/14/19 20:17; Admin Dose 40 MG; Start 04/14/19 at 00:30 Metoprolol Tartrate (Lopressor) 50 mg BID PO Last administered on 04/14/19at 20:15; Admin Dose 50 MG; Start 04/14/19 at 00:30 Ondansetron HCl (Zofran Tab) 4 mg Q6H PRN PO nausea/vomiting Last administered on 04/14/19at 21:44; Admin Dose 4 MG; Start 04/14/19 at 00:30 Potassium Chloride (Micro-K) 8 meq DAILY PO ; Start 04/14/19 at 09:00 Spironolactone (Aldactone) 25 mg DAILY PO ; Start 04/14/19 at 09:00 Pantoprazole (Protonix Tab) 40 mg DAILY@06 PO Last administered on 04/14/19 06:01; Admin Dose 40 MG; Start 04/14/19 at 06:00 Fenofibrate (Tricor) 145 mg DAILY PO ; Start 04/14/19 at 09:00 Losartan Potassium (Cozaar) 100 mg DAILY PO ; Start 04/14/19 at 09:00 Ciprofloxacin (Cipro) 500 mg BID@18 GTB Last administered on 04/14/19at 18:05; Admin Dose 500 MG; Start 04/14/19 at 06:00; Stop 04/17/19 at 09:00 Azithromycin 250 ml @ 250 mls/hr Q24H IVPB ; Start 04/14/19 at 23:00 Acetaminophen (Tylenol Tab) 500 mg Q8 PRN PO MILD PAIN(1-3)OR ELEVATED TEMP Last administered on 04/14/19at 08:56; Admin Dose 500 MG; Start 04/14/19 at 00:30 Morphine Sulfate (morphine) 1 mg Q4H PRN IV SEVERE PAIN LEVEL 7-10 Last administered on 04/14/19at 21:32; Admin Dose 1 MG; Start 04/14/19 at 00:30 Zolpidem Tartrate (Ambien) 10 mg HS PRN PO INSOMNIA; Start 04/14/19 at 14:30 Allergies: Coded Allergies: vancomycin (Verified Allergy, Mild, REDNESS AND ITCHING, 03/20/18) Past Surgical History Past Surgical Hx: angioplasty Social History Alcohol Use: none Smoking Status: Never smoker Drug Use: none Exam/Review of Systems Exam Vitals Vital Signs Date Temp Pulse Resp B/P (MAP) Pulse Ox O2 O2 Flow FiO2 Time Delivery Rate 04/14/19 98 21 21:11 04/14/19 108 20:00 04/14/19 98.5 18 130/80 Room Air 19:47 (97) Intake and Output 04/13/19 04/13/19 04/14/19 1515:00 23:00 07:00 IntakeIntake Total 400 ml BalanceBalance 400 ml Exam PHYSICAL EXAMINATION: GENERAL: She is well-nourished woman in no acute distress, alert and oriented x3, somewhat aware of her condition. HEENT: Head is normocephalic, atraumatic. Eyes are anicteric. NECK: Supple. JVD is 6 to 7 cm. There is no lymphadenopathy, no thyromegaly. HEART: Regular, soft holosystolic murmur. PMI displaced leftward. ICD site is well healed. LUNGS: Coarse to base. ABDOMEN: Distended. Bowel sounds are present. There is no hepatosplenomegaly. GENITOURINARY: Intact. EXTREMITIES: Trace edema. Results Result Diagram: 04/14/19 0548 04/14/19 0548 Results 24hrs Laboratory Tests Test 04/13/19 22:04 04/14/19 05:48 04/14/19 15:03 04/14/19 19:43 Urine Color YELLOW Urine Clarity SLIGHTLY CLOUDY A Urine pH 6.0 Urine Specific 1.015 [place] Urine Ketones NEGATIVE Urine Nitrite NEGATIVE Urine Bilirubin NEGATIVE Urine Urobilinogen 1+ H Urine Leukocyte 2+ H Esterase Urine Microscopic 1 RBC Urine Microscopic 20 H WBC Urine Squamous FEW Epithelial Cells Urine Bacteria FEW A Urine Mucus FEW A Urine Hemoglobin NEGATIVE Urine Glucose NEGATIVE Urine Total NEGATIVE Protein White Blood Count 5.7 Red Blood Count 4.23 Hemoglobin 11.4 L Hematocrit 37.3 Mean Corpuscular 88.2 Volume Mean Corpuscular 27.0 L Hemoglobin Mean Corpuscular 30.6 L Hemoglobin Concent Red Cell 16.6 H Distribution Width Platelet Count 221 Mean Platelet 11.0 H Volume Immature 0.200 Granulocytes % Neutrophils % 72.3 Lymphocytes % 16.2 Monocytes % 10.5 Eosinophils % 0.5 Basophils % 0.3 Nucleated Red 0.0 Blood Cells % Immature 0.010 Granulocytes # Neutrophils # 4.1 Lymphocytes # 0.9 Monocytes # 0.6 Eosinophils # 0.0 Basophils # 0.0 Nucleated Red 0.0 Blood Cells # D-Dimer 819.68 #H D-Dimer Comment Sodium Level 142 Potassium Level 4.0 Chloride Level 107 Carbon Dioxide 26 Level Anion Gap 9 Blood Urea 15 Nitrogen Creatinine 0.76 Est Glomerular Filtrat Rate mL/min Glucose Level 99 # Calcium Level 9.3 Magnesium Level 2.3 Total Bilirubin 0.6 Direct Bilirubin 0.00 Indirect Bilirubin 0.6 Aspartate Amino 28 Transf (AST/SGOT) Alanine 15 Aminotransferase ( ALT/SGPT) Alkaline 51 Phosphatase Total Protein 6.5 # Albumin 3.7 Globulin 2.80 Albumin/Globulin 1.32 Ratio Digoxin Level 0.6 L Troponin I 1.010 *H 1.120 *H Medications Medication Current Medications Acetaminophen (Tylenol Tab) 500 mg Q8 PRN PO pain and temp. more then 99F; Start 04/14/19 at 00:30 Albuterol (Proventil 0.083% (Neb)) 2.5 mg Q8H RESP THERAPY HHN Last administered on 04/14/19at 09:04; Admin Dose 2.5 MG; Start 04/14/19 at 08:00 Aspirin (Aspirin) 81 mg DAILY PO ; Start 04/14/19 at 09:00 Clopidogrel Bisulfate (plaVIX) 75 mg DAILY PO ; Start 04/14/19 at 09:00 Digoxin (Digoxin) 0.125 mg DAILY@1300 PO ; Start 04/14/19 at 13:00 Folic Acid (Folic Acid) 1 mg DAILY PO ; Start 04/14/19 at 09:00 Furosemide (Lasix) 40 mg DAILY@0600 PO Last administered on 04/14/19at 06:01; Admin Dose 40 MG; Start 04/14/19 at 06:00 Albuterol/ Ipratropium (Duoneb) 3 ml Q4H RESP THERAPY PRN HHN SHORTNESS OF BREATH; Start 04/14/19 at 00:30 Isosorbide Mononitrate (Imdur) 30 mg DAILY PO ; Start 04/14/19 at 09:00 Levothyroxine Sodium (Synthroid) 125 mcg BEFORE BREAKFAST PO ; Start 04/14/19 at 07:00 Lorazepam (Ativan) 0.5 mg Q8 PRN PO ANXIETY Last administered on 04/14/19 21:45; Admin Dose 0.5 MG; Start 04/14/19 at 00:30 Magnesium Oxide (Mag-Ox 400) 400 mg DAILY PO ; Start 04/14/19 at 09:00 Megestrol Acetate (Megace) 40 mg BID PO Last administered on 04/14/19 20:17; Admin Dose 40 MG; Start 04/14/19 at 00:30 Metoprolol Tartrate (Lopressor) 50 mg BID PO Last administered on 04/14/19 20:15; Admin Dose 50 MG; Start 04/14/19 at 00:30 Ondansetron HCl (Zofran Tab) 4 mg Q6H PRN PO nausea/vomiting Last administered on 04/14/19 21:44; Admin Dose 4 MG; Start 04/14/19 at 00:30 Potassium Chloride (Micro-K) 8 meq DAILY PO ; Start 04/14/19 at 09:00 Spironolactone (Aldactone) 25 mg DAILY PO ; Start 04/14/19 at 09:00 Pantoprazole (Protonix Tab) 40 mg DAILY@06 PO Last administered on 04/14/19 06:01; Admin Dose 40 MG; Start 04/14/19 at 06:00 Fenofibrate (Tricor) 145 mg DAILY PO ; Start 04/14/19 at 09:00 Losartan Potassium (Cozaar) 100 mg DAILY PO ; Start 04/14/19 at 09:00 Ciprofloxacin (Cipro) 500 mg BID@06,18 GTB Last administered on 04/14/19 18:05; Admin Dose 500 MG; Start 04/14/19 at 06:00; Stop 04/17/19 at 09:00 Azithromycin 250 ml @ 250 mls/hr Q24H IVPB ; Start 04/14/19 at 23:00 Acetaminophen (Tylenol Tab) 500 mg Q8 PRN PO MILD PAIN(1-3)OR ELEVATED TEMP Last administered on 04/14/19 08:56; Admin Dose 500 MG; Start 04/14/19 at 00:30 Morphine Sulfate (morphine) 1 mg Q4H PRN IV SEVERE PAIN LEVEL 7-10 Last administered on 04/14/19 21:32; Admin Dose 1 MG; Start 04/14/19 at 00:30 Zolpidem Tartrate (Ambien) 10 mg HS PRN PO INSOMNIA; Start 04/14/19 at 14:30 KALPANA ANGELES MD Apr 14, 2019 21:59
[2019-04-14] MEDS ORDERED: AZITHROMYCIN 500MG/NS (PMX) 250 ML IVPB SCH (23:00)
[2019-04-15] VITALS (10 sets, daily range): BP systolic 99–127; BP diastolic 67–82; PULSE 90–117; RESP 16–19
[2019-04-15] MEDS: PANTOPRAZOLE (EC) 40 MG TAB PO SCH (06:13)
[2019-04-15] MEDS: LEVOTHYROXINE 125 MCG TAB PO SCH (06:13)
[2019-04-15] MEDS: CIPROFLOXACIN 500 MG TAB GTB SCH (06:13)
[2019-04-15] MEDS: FUROSEMIDE 40 MG TAB PO SCH (06:13)
[2019-04-15] MEDS: ALBUTEROL 0.083% (NEB) 2.5 MG/3 ML AMP HHN SCH ×2 (08:00→15:24)
[2019-04-15] MEDS: METOPROLOL 50 MG TAB PO SCH ×2 (09:00→20:06)
[2019-04-15] MEDS: CLOPIDOGREL 75 MG TAB PO SCH (09:00)
[2019-04-15] MEDS: FENOFIBRATE 145 MG TAB PO SCH (09:00)
[2019-04-15] MEDS: ASPIRIN 81 MG TAB PO SCH (09:00)
[2019-04-15] MEDS: MEGESTROL 40 MG TAB PO SCH ×2 (09:00→20:06)
[2019-04-15] MEDS: ISOSORBIDE MONONITRATE(SR)30 MG TAB PO SCH (09:00)
[2019-04-15] MEDS: POTASSIUM CHLORIDE (SR) 8 MEQ CAP PO SCH (09:00)
[2019-04-15] MEDS: FOLIC ACID 1 MG TAB PO SCH (09:00)
[2019-04-15] MEDS: SPIRONOLACTONE 25 MG TAB PO SCH (09:00)
[2019-04-15] MEDS: LOSARTAN 50 MG TAB PO SCH (09:00)
[2019-04-15] MEDS: MAGNESIUM OXIDE 400 MG TAB PO SCH (09:00)
--- NOTE | 2019-04-15 12:09 | CONS ---
Assessment/Plan Assessment/Plan Hospital Course (Demo Recall) IMP: 1.Nstemi-Had some chest pain and enzymes are downtrending. [place] type 2 demand infarct. Patient refusing all medications. 2.CHF-systolic acute on chronic EF 20-25% by echo 03/01 jen due to combination of cad and CTX. Lexiscan 03/01 with no sig ischemia/EF 19% 3.Chest pain-currently resolved 4.sob-secondary to CHF 5.dysphagia-patient stating that medications/food geeting stuck in throat 6.Lymphoma-s/p CTX. But per onc note disease is progressive and refractory 7.Dyslipidemia 8.UTI 9. H/O ICD 10. NSVT-short run overnight 11.MR- now mild by echo 03/01 s/p mitral valve e-clip Recc: -Tele -Continue antiplatelet agents as patient will comply -Contineu gentle lasix diuresis -would start statin as patient will comply/take -Continue BB/ARB/aldactone/digoxin/imdur as patient will take/comply -? need for G tube -Will discuss with family direction of care/cath versus conservative medical therapy -Continue to trend cardiac enzymes and start low dose anticoagulation Consultation Date/Type/Reason Admit Date/Time Apr 13, 2019 at 22:46 Initial Consult Date 04/14/19 Type of Consult Cardiology Reason for Consultation Nstemi/CHF Requesting Provider: PEDRO KRUSE MD Date/Time of Note DATE: 04/15/19 TIME: 11:58 Exam/Review of Systems Vital Signs Vitals Vital Signs Date Temp Pulse Resp B/P (MAP) Pulse Ox O2 O2 Flow FiO2 Time Delivery Rate 04/15/19 98.7 104 16 99/67 (78) 97 11:36 04/15/19 2.0 05:31 04/14/19 28 23:16 04/14/19 Room Air 19:47 Intake and Output 04/14/19 04/14/19 04/15/19 1515:00 23:00 07:00 IntakeIntake Total 300 ml 250 ml BalanceBalance 300 ml 250 ml Exam Exam Review of Systems: CONSTITUTIONAL: No fevers, chills. PULMONARY: mild sob CARDIOVASCULAR: intermittent chest pain GASTROINTESTINAL: dysphagia GENITOURINARY: No hematuria/dysuria. MUSCULOSKELETAL: No myagias/arthalgias. PSYCHIATRIC: The patient denies depression. NEUROLOGIC: No weakness Constitutional: alert, oriented Psych: no complaints Head: normocephalic ENMT: mucosa pink and moist Neck: supple, jvd (9 cm water) Respiratory: diminished breath sounds (at bases/B) Cardiovascular: regular rate and rhythm Gastrointestinal: soft, non-tender Musculoskeletal: muscle weakness (generalized) Extremities: edema (none) 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: lethargic Labs Result Diagram: 04/14/19 0548 04/14/19 0548 Results 24hrs Laboratory Tests Test 04/14/19 15:03 04/14/19 19:43 04/15/19 00:47 Troponin I 1.010 *H 1.120 *H 0.900 *H Medications Medications Current Medications Acetaminophen (Tylenol Tab) 500 mg Q8 PRN PO pain and temp. more then 99F; Start 04/14/19 at 00:30 Albuterol (Proventil 0.083% (Neb)) 2.5 mg Q8H RESP THERAPY HHN Last administered on 04/14/19at 23:13; Admin Dose 2.5 MG; Start 04/14/19 at 08:00 Aspirin (Aspirin) 81 mg DAILY PO ; Start 04/14/19 at 09:00 Clopidogrel Bisulfate (plaVIX) 75 mg DAILY PO ; Start 04/14/19 at 09:00 Digoxin (Digoxin) 0.125 mg DAILY@1300 PO ; Start 04/14/19 at 13:00 Folic Acid (Folic Acid) 1 mg DAILY PO ; Start 04/14/19 at 09:00 Furosemide (Lasix) 40 mg DAILY@0600 PO Last administered on 04/15/19at 06:13; Admin Dose 40 MG; Start 04/14/19 at 06:00 Albuterol/ Ipratropium (Duoneb) 3 ml Q4H RESP THERAPY PRN HHN SHORTNESS OF BREATH; Start 04/14/19 at 00:30 Isosorbide Mononitrate (Imdur) 30 mg DAILY PO ; Start 04/14/19 at 09:00 Levothyroxine Sodium (Synthroid) 125 mcg BEFORE BREAKFAST PO Last administered on 04/15/19at 06:13; Admin Dose 125 MCG; Start 04/14/19 at 07:00 Lorazepam (Ativan) 0.5 mg Q8 PRN PO ANXIETY Last administered on 6/2/19at 21:45; Admin Dose 0.5 MG; Start 04/14/19 at 00:30 Magnesium Oxide (Mag-Ox 400) 400 mg DAILY PO ; Start 04/14/19 at 09:00 Megestrol Acetate (Megace) 40 mg BID PO Last administered on 04/14/19 20:17; Admin Dose 40 MG; Start 04/14/19 at 00:30 Metoprolol Tartrate (Lopressor) 50 mg BID PO Last administered on 04/14/19 20:15; Admin Dose 50 MG; Start 04/14/19 at 00:30 Ondansetron HCl (Zofran Tab) 4 mg Q6H PRN PO nausea/vomiting Last administered on 04/14/19 21:44; Admin Dose 4 MG; Start 04/14/19 at 00:30 Potassium Chloride (Micro-K) 8 meq DAILY PO ; Start 04/14/19 at 09:00 Spironolactone (Aldactone) 25 mg DAILY PO ; Start 04/14/19 at 09:00 Pantoprazole (Protonix Tab) 40 mg DAILY@06 PO Last administered on 04/15/19 06:13; Admin Dose 40 MG; Start 04/14/19 at 06:00 Fenofibrate (Tricor) 145 mg DAILY PO ; Start 04/14/19 at 09:00 Losartan Potassium (Cozaar) 100 mg DAILY PO ; Start 04/14/19 at 09:00 Ciprofloxacin (Cipro) 500 mg BID@06,18 GTB Last administered on 04/15/19 06:13; Admin Dose 500 MG; Start 04/14/19 at 06:00; Stop 04/17/19 at 09:00 Azithromycin 250 ml @ 250 mls/hr Q24H IVPB ; Start 04/14/19 at 23:00 Acetaminophen (Tylenol Tab) 500 mg Q8 PRN PO MILD PAIN(1-3)OR ELEVATED TEMP Last administered on 04/14/19at 08:56; Admin Dose 500 MG; Start 04/14/19 at 00:30 Morphine Sulfate (morphine) 1 mg Q4H PRN IV SEVERE PAIN LEVEL 7-10 Last administered on 04/14/19at 21:32; Admin Dose 1 MG; Start 04/14/19 at 00:30 Zolpidem Tartrate (Ambien) 10 mg HS PRN PO INSOMNIA; Start 04/14/19 at 14:30 ARIEL HOBBS Apr 15, 2019 12:09
--- NOTE | 2019-04-15 12:13 | CONS ---
Consult Date/Type/Reason Admit Date/Time Apr 13, 2019 at 22:46 Initial Consult Date 04/14/19 Type of Consult Pulmonary Requesting Provider: PEDRO KRUSE MD Date/Time of Note DATE: 04/15/19 TIME: 12:12 Subjective Patient comfortable on room air no respiratory distress. Objective Vital Signs Date Temp Pulse Resp B/P (MAP) Pulse Ox O2 O2 Flow FiO2 Time Delivery Rate 04/15/19 98.7 104 16 99/67 (78) 97 11:36 04/15/19 2.0 05:31 04/14/19 28 23:16 04/14/19 Room Air 19:47 Intake and Output 04/14/19 04/14/19 04/15/19 1515:00 23:00 07:00 IntakeIntake Total 300 ml 250 ml BalanceBalance 300 ml 250 ml Exam GENERAL: Elderly [place] lady comfortable at rest no acute distress VITAL SIGNS: per chart NECK: Supple. No JVD or lymphadenopathy. CARDIAC EXAM: S1, S2. No added sounds or murmurs. CHEST: Few bibasilar rales ABDOMEN: Soft, nontender. No guarding or rebound. EXTREMITIES: No cyanosis, clubbing or edema. NEUROLOGIC: Generalized weakness. No focal deficits. Vent Setting Fraction of Inspired Oxygen pe: 28 Results/Medications Result Diagram: 04/14/19 0548 04/14/19 0548 Results 24 hrs Laboratory Tests Test 04/14/19 15:03 04/14/19 19:43 04/15/19 00:47 Troponin I 1.010 *H 1.120 *H 0.900 *H Medications Current Medications Acetaminophen (Tylenol Tab) 500 mg Q8 PRN PO pain and temp. more then 99F; Start 04/14/19 at 00:30 Albuterol (Proventil 0.083% (Neb)) 2.5 mg Q8H RESP THERAPY HHN Last administered on 04/14/19at 23:13; Admin Dose 2.5 MG; Start 04/14/19 at 08:00 Aspirin (Aspirin) 81 mg DAILY PO ; Start 04/14/19 at 09:00 Clopidogrel Bisulfate (plaVIX) 75 mg DAILY PO ; Start 04/14/19 at 09:00 Digoxin (Digoxin) 0.125 mg DAILY@1300 PO ; Start 04/14/19 at 13:00 Folic Acid (Folic Acid) 1 mg DAILY PO ; Start 04/14/19 at 09:00 Albuterol/ Ipratropium (Duoneb) 3 ml Q4H RESP THERAPY PRN HHN SHORTNESS OF BREATH; Start 04/14/19 at 00:30 Isosorbide Mononitrate (Imdur) 30 mg DAILY PO ; Start 04/14/19 at 09:00 Levothyroxine Sodium (Synthroid) 125 mcg BEFORE BREAKFAST PO Last administered on 04/15/19 06:13; Admin Dose 125 MCG; Start 04/14/19 at 07:00 Lorazepam (Ativan) 0.5 mg Q8 PRN PO ANXIETY Last administered on 04/14/19 21:45; Admin Dose 0.5 MG; Start 04/14/19 at 00:30 Magnesium Oxide (Mag-Ox 400) 400 mg DAILY PO ; Start 04/14/19 at 09:00 Megestrol Acetate (Megace) 40 mg BID PO Last administered on 04/14/19 20:17; Admin Dose 40 MG; Start 04/14/19 at 00:30 Metoprolol Tartrate (Lopressor) 50 mg BID PO Last administered on 04/14/19 20:15; Admin Dose 50 MG; Start 04/14/19 at 00:30 Ondansetron HCl (Zofran Tab) 4 mg Q6H PRN PO nausea/vomiting Last administered on 04/14/19 21:44; Admin Dose 4 MG; Start 04/14/19 at 00:30 Potassium Chloride (Micro-K) 8 meq DAILY PO ; Start 04/14/19 at 09:00 Spironolactone (Aldactone) 25 mg DAILY PO ; Start 04/14/19 at 09:00 Pantoprazole (Protonix Tab) 40 mg DAILY@06 PO Last administered on 04/15/19 06:13; Admin Dose 40 MG; Start 04/14/19 at 06:00 Fenofibrate (Tricor) 145 mg DAILY PO ; Start 04/14/19 at 09:00 Losartan Potassium (Cozaar) 100 mg DAILY PO ; Start 04/14/19 at 09:00 Ciprofloxacin (Cipro) 500 mg BID@,18 GTB Last administered on 04/15/19 06:13; Admin Dose 500 MG; Start 04/14/19 at 06:00; Stop 04/17/19 at 09:00 Azithromycin 250 ml @ 250 mls/hr Q24H IVPB ; Start 04/14/19 at 23:00 Acetaminophen (Tylenol Tab) 500 mg Q8 PRN PO MILD PAIN(1-3)OR ELEVATED TEMP Last administered on 04/14/19at 08:56; Admin Dose 500 MG; Start 04/14/19 at 00:30 Morphine Sulfate (morphine) 1 mg Q4H PRN IV SEVERE PAIN LEVEL 7-10 Last administered on 04/14/19at 21:32; Admin Dose 1 MG; Start 04/14/19 at 00:30 Zolpidem Tartrate (Ambien) 10 mg HS PRN PO INSOMNIA; Start 04/14/19 at 14:30 Furosemide (Lasix) 40 mg BID DIURETICS IV ; Start 04/15/19 at 18:00; Status UNV Enoxaparin Sodium (Lovenox) 40 mg BID SC ; Start 04/15/19 at 21:00; Status UNV Assessment/Plan Hospital Course (Demo Recall) IMP: 1. Dyspnea--in a patient with ischemic CMY and HFrEF. Findings most consistent with mild ADHF with associated type II NSTEMI 2. ADHF 3. Type II NSTEMI 4. CAD 5. UTI RECS: 1. Diuresis 2. Afterload reduction as per CV 3. Follow TnI 4. Encourage out of bed 5. De-escalate Abx Discharge planning okay from pulmonary standpoint Outpatient pulmonary follow-up [facility] Apr 15, 2019 12:13
[2019-04-15] MEDS: DIGOXIN 0.125 MG TAB PO SCH (13:59)
--- NOTE | 2019-04-15 14:28 | CONS ---
Assessment/Plan Assessment/Plan Hospital Course (Demo Recall) No events overnight patient is awake and looks comfortable, no fevers overnight, no dysuria and hematuria. WBC from yesterday was 5.7, no labs today troponin 0.9 Antimicrobials: Zithromax ciprofloxacin Physical examination well-developed fragile elderly [place] woman who is alert in no distress. Head atraumatic normocephalic neck is supple chest rise symmetrical breath sounds clear heart S1-S2 abdomen soft bowel sounds present Assessment: 1. Non-ST elevation UT 2. UTI per urinalysis 3. 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: Patient is stable seen by pulmonology and cardiology, will change antibiotics to Levaquin, send urine for culture Consultation Date/Type/Reason Admit Date/Time Apr 13, 2019 at 22:46 Initial Consult Date 04/14/19 Type of Consult id Requesting Provider: PEDRO KRUSE MD Date/Time of Note DATE: 04/15/19 TIME: 14:28 Exam/Review of Systems Exam Vitals Vital Signs Date Temp Pulse Resp B/P (MAP) Pulse Ox O2 O2 Flow FiO2 Time Delivery Rate 04/15/19 102 12:01 04/15/19 98.7 16 99/67 (78) 97 11:36 04/15/19 2.0 05:31 04/14/19 28 23:16 04/14/19 Room Air 19:47 Intake and Output 04/14/19 04/14/19 04/15/19 1515:00 23:00 07:00 IntakeIntake Total 300 ml 250 ml BalanceBalance 300 ml 250 ml Results Result Diagram: 04/14/19 0548 04/14/19 0548 Results 24hrs Laboratory Tests Test 04/14/19 15:03 04/14/19 19:43 04/15/19 00:47 Troponin I 1.010 *H 1.120 *H 0.900 *H Medications Medication Current Medications Acetaminophen (Tylenol Tab) 500 mg Q8 PRN PO pain and temp. more then 99F; Start 04/14/19 at 00:30 Albuterol (Proventil 0.083% (Neb)) 2.5 mg Q8H RESP THERAPY HHN Last administered on 04/14/19at 23:13; Admin Dose 2.5 MG; Start 04/14/19 at 08:00 Aspirin (Aspirin) 81 mg DAILY PO ; Start 04/14/19 at 09:00 Clopidogrel Bisulfate (plaVIX) 75 mg DAILY PO ; Start 04/14/19 at 09:00 Digoxin (Digoxin) 0.125 mg DAILY@1300 PO Last administered on 04/15/19 13:59; Admin Dose 0.125 MG; Start 04/14/19 at 13:00 Folic Acid (Folic Acid) 1 mg DAILY PO ; Start 04/14/19 at 09:00 Albuterol/ Ipratropium (Duoneb) 3 ml Q4H RESP THERAPY PRN HHN SHORTNESS OF BREATH; Start 04/14/19 at 00:30 Isosorbide Mononitrate (Imdur) 30 mg DAILY PO ; Start 04/14/19 at 09:00 Levothyroxine Sodium (Synthroid) 125 mcg BEFORE BREAKFAST PO Last administered on 04/15/19at 06:13; Admin Dose 125 MCG; Start 04/14/19 at 07:00 Lorazepam (Ativan) 0.5 mg Q8 PRN PO ANXIETY Last administered on 04/14/19at 21:45; Admin Dose 0.5 MG; Start 04/14/19 at 00:30 Magnesium Oxide (Mag-Ox 400) 400 mg DAILY PO ; Start 04/14/19 at 09:00 Megestrol Acetate (Megace) 40 mg BID PO Last administered on 04/14/19 20:17; Admin Dose 40 MG; Start 04/14/19 at 00:30 Metoprolol Tartrate (Lopressor) 50 mg BID PO Last administered on 04/14/19 20:15; Admin Dose 50 MG; Start 04/14/19 at 00:30 Ondansetron HCl (Zofran Tab) 4 mg Q6H PRN PO nausea/vomiting Last administered on 04/14/19 21:44; Admin Dose 4 MG; Start 04/14/19 at 00:30 Potassium Chloride (Micro-K) 8 meq DAILY PO ; Start 04/14/19 at 09:00 Spironolactone (Aldactone) 25 mg DAILY PO ; Start 04/14/19 at 09:00 Pantoprazole (Protonix Tab) 40 mg DAILY@06 PO Last administered on 04/15/19 06:13; Admin Dose 40 MG; Start 04/14/19 at 06:00 Fenofibrate (Tricor) 145 mg DAILY PO ; Start 04/14/19 at 09:00 Losartan Potassium (Cozaar) 100 mg DAILY PO ; Start 04/14/19 at 09:00 Ciprofloxacin (Cipro) 500 mg BID@06,18 GTB Last administered on 04/15/19at 06:13; Admin Dose 500 MG; Start 04/14/19 at 06:00; Stop 04/17/19 at 09:00 Azithromycin 250 ml @ 250 mls/hr Q24H IVPB ; Start 04/14/19 at 23:00 Acetaminophen (Tylenol Tab) 500 mg Q8 PRN PO MILD PAIN(1-3)OR ELEVATED TEMP Last administered on 04/14/19at 08:56; Admin Dose 500 MG; Start 04/14/19 at 00:30 Morphine Sulfate (morphine) 1 mg Q4H PRN IV SEVERE PAIN LEVEL 7-10 Last administered on 04/14/19at 21:32; Admin Dose 1 MG; Start 04/14/19 at 00:30 Zolpidem Tartrate (Ambien) 10 mg HS PRN PO INSOMNIA; Start 04/14/19 at 14:30 Furosemide (Lasix) 40 mg BID DIURETICS IV ; Start 04/15/19 at 18:00 Enoxaparin Sodium (Lovenox) 40 mg BID SC ; Start 04/15/19 at 21:00 CARMELITA TINSLEY NP Apr 15, 2019 14:28
[2019-04-15] MEDS: ACETAMINOPHEN 500 MG TAB PO PRN (16:44)
[2019-04-15] MEDS: FUROSEMIDE 40 MG INJ IV SCH (17:49)
--- NOTE | 2019-04-15 20:07 | PN ---
Date/Time of Note Date/Time of Note DATE: 04/15/19 TIME: 20:02 Assessment/Plan VTE Prophylaxis Risk score (from Nsg)>0 risk: 3 SCD applied (from Ns): No SCD contraindicated: other (on) Pharmacological prophylaxis: LMWH Lines/Catheters IV Catheter Type (from Nrs): [place] [employer] line still needed: No Urinary Cath still in place: No Reason Cath still needed: urinary retention Assessment/Plan Assessment/Plan 1. Severe respiratory distress with worsening of wheezing and inability to sleep. Improvingon. 2.IHD angina, new onset HI by positive troponin series still high. Discussed with Dr. Alvarez. HX of recent PTCA with one stent and 3 balloon dilatation of narrow coronary arteries(; according to the daughter). Status post stapling of mitral valve 6 months ago in [facility] with improvement of condition immediately after the procedure but still she is having frequent hospitalizatio ns. Although it is evident that the cause is not over drinking possibly medication noncompliance. 3. Dysphagia to solids and sometimes to liquids now to everything. Refuses to eat secondary to pain.. 4. Pulmonary edema by x-ray with wheezing on admission, improved after lasix.Eje ction fraction is visually estimated at 25-30 %. 5. History of Hodgkin lymphoma- s/p chemotherapy and hydration 10 days ago. 6. Osteoarthritis with pain syndrome 7. Anxiety disorder. 8. Depression with grief reaction-s/p loss of . 9. Urinary incontinence. 10. Osteoporosis. 11. Kyphosis. 12. Postmenopausal syndrome. 13. Anemia with nl iron. 14. Brain atrophy on CT. 15. Left sphenoid sinusitis on CT. 16. Left ventricular hypertrophy. 17. Urinary incontinence. 18.Cerebrovascular accident, with left facial drooling, left facial weakness, with slurred speech and dysphagia. Mild left upper extremity weakness.mostly corrected. 19. Hypertension, now normotensive.Cardiomegaly on cxr 20. Status post left subclavian area pacemaker implantation about 3 months ago. 21. Status post mitral valve endocardial manipulation with stapling of the valves with good clinical results. 22. Recurrent episodes of V. tach now 8 complexes on a monitor and SVT; placed on the monitor but cardiology consult. 23.Weight loss mainly due to of not eating well. 24.Sleeplessness 25.Poor self expression capacity and getting worse. Talks for minutes but unable to conclude talk or be precise. 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 20.Medication noncompliance. Result Diagram: 04/14/1954704/14/19547 Results 24hrs Laboratory Tests Test 04/15/19 00:47 Troponin I 0.900 *H Subjective 24 Hr Interval Summary Free Text/Dictation Denies chest pain. More detailed questioning revealed that she was having the chest pain for almost a month. Dysphagia was worse last couple of days. Nausea vomiting she was relating to throat pain and difficulty swallowing. The patient and the family revealed that she underwent radiologic study in the [place] area possibly PET scan ordered a CT. details are not clear. Discussed with Dr. Alvarez. Possible PTCA. Constitutional: improved, poor po, requiring O2; No no complaints, No chills, No diaphoresis, No disoriented, No febrile, No requiring IVF, No other Eyes: No no complaints, No pain, No discharge, No redness, No visual change, No other ENT: pain, congestion, discharge, dysphagia; No no complaints, No bleeding, No sore throat, No other Respiratory: cough, pleuritic pain, shortness of breath, sputum; No no complaints, No pain, No wheezing, No other Cardiovascular: chest pain, edema, lightheadedness, orthopenea; No no complaints, No palpitations, No paroxysmal nocturnal dyspnea, No other Gastrointestinal: no complaints, pain, constipation, decreased appetite, nausea, vomiting, other (Dysphagia); No blood, No diarrhea, No flatus, No passing stool Genitourinary: dysuria; No no complaints, No bleeding, No discharge, No flank pain, No hematuria, No other Musculoskeletal: back pain, bone/joint pain; No no complaints, No neck pain, No restricted range of motion, No swelling, No other Skin: No no complaints, No bruising, No erythema, No laceration, No pruritis, No rash, No skin lesions, No other Neurologic: dizziness, headache; No no complaints, No confusion, No focal-weakness, No syncope, No seizure, No other Endocrine: no complaints Psychological: anxiety; No no complaints, No nl mood/affect, No confusion, No depression, No suic idal, No other Exam/Review of Systems Exam Vitals Vital Signs Date Temp Pulse Resp B/P (MAP) Pulse Ox O2 O2 Flow FiO2 Time Delivery Rate 04/15/19 98.2 17:29 04/15/19 117 16:01 04/15/19 21 15:58 04/15/19 18 98 15:34 04/15/19 114/77 15:22 (89) 04/15/19 2.0 05:31 04/14/19 Room Air 19:47 Intake and Output 04/14/19 04/14/19 04/15/19 1515:00 23:00 07:00 IntakeIntake Total 300 ml 250 ml BalanceBalance 300 ml 250 ml Constitutional: alert, oriented, well developed, distress, frail, obese; No non-verbal, No other Psych: anxiety, depression; No no complaints, No nl mood/affect, No confusion, No suicidal, No other Head: normocephalic, atraumatic; No lacerations, No hematomas, No other Eyes: EOMI, nl lids; No nl conjunctiva, No nl sclera, No PERRL, No icteric, No fundi, disc, No other ENMT: No nl external ears & nose, No nl lips & teeth, No nl nasal mucosa & septum, No mucosa pink and moist, No intubated, No tympanic membranes, No other Neck: supple, bruits, nuchal rigidity; No non-tender, No jvd, No masses, No thyromegaly, No other Respiratory: clear to auscultation, congested cough, crackles/rales, diminished breath sounds; No normal air movement, No intercostal retraction, No labored breathing, No respirations, No tactile fremitus, No wheezing, No other Cardiovascular: regular rate and rhythm, nl pulses, bruits, edema, systolic murmur; No diastolic murmur, No gallop, No irregular rhythm, No jugular venous distention (JVD), No murmurs/extra sounds, No rub, No S3, No S4, No other Gastrointestinal: soft, nl liver, spleen, bowel sounds; No non-tender, No ascites, No distended, No firm, No hepatomegaly, No mass, No rebound or guarding, No splenomegaly, No surgical scars, No tender, No other Genitourinary - Female: nl adnexae, nl external genitalia Musculoskeletal: joint tenderness, muscle tone, muscle weakness; No nl extremities to inspection, No nl gait and stance, No range of motion, No spine non-tender, No swelling, No other Extremities: normal pulses; No calf tenderness, No cyanosis, No clubbing, No edema, No pitting pedal edema, No palpable cord, No tenderness, No other 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: MOLD HOISTER II-XII intact, nl mental status (30 to express thoughts clearly. Very pleasant demands to be discharged. Explained the current new onset HI), nl speech, confused; No nl strength, No DTR's symmetric, No focal weakness, No lethargic, No numbness, No reflexes, No unresponsive, No other Results Results 24hrs Laboratory Tests Test 04/15/19 00:47 Troponin I 0.900 *H Medications Medication Current Medications Acetaminophen (Tylenol Tab) 500 mg Q8 PRN PO pain and temp. more then 99F Last administered on 04/15/19at 16:44; Admin Dose 500 MG; Start 04/14/19 at 00:30 Albuterol (Proventil 0.083% (Neb)) 2.5 mg Q8H RESP THERAPY HHN Last administered on 04/15/19at 15:24; Admin Dose 2.5 MG; Start 04/14/19 at 08:00 Aspirin (Aspirin) 81 mg DAILY PO ; Start 04/14/19 at 09:00 Clopidogrel Bisulfate (plaVIX) 75 mg DAILY PO ; Start 04/14/19 at 09:00 Digoxin (Digoxin) 0.125 mg DAILY@1300 PO Last administered on 04/15/19at 13:59; Admin Dose 0.125 MG; Start 04/14/19 at 13:00 Folic Acid (Folic Acid) 1 mg DAILY PO ; Start 04/14/19 at 09:00 Albuterol/ Ipratropium (Duoneb) 3 ml Q4H RESP THERAPY PRN HHN SHORTNESS OF BREATH; Start 04/14/19 at 00:30 Isosorbide Mononitrate (Imdur) 30 mg DAILY PO ; Start 04/14/19 at 09:00 Levothyroxine Sodium (Synthroid) 125 mcg BEFORE BREAKFAST PO Last administered on 04/15/19at 06:13; Admin Dose 125 MCG; Start 04/14/19 at 07:00 Lorazepam (Ativan) 0.5 mg Q8 PRN PO ANXIETY Last administered on 04/14/19 21:45; Admin Dose 0.5 MG; Start 04/14/19 at 00:30 Magnesium Oxide (Mag-Ox 400) 400 mg DAILY PO ; Start 04/14/19 at 09:00 Megestrol Acetate (Megace) 40 mg BID PO Last administered on 04/14/19 20:17; Admin Dose 40 MG; Start 04/14/19 at 00:30 Metoprolol Tartrate (Lopressor) 50 mg BID PO Last administered on 04/14/19at 20:15; Admin Dose 50 MG; Start 04/14/19 at 00:30 Ondansetron HCl (Zofran Tab) 4 mg Q6H PRN PO nausea/vomiting Last administered on 04/14/19 21:44; Admin Dose 4 MG; Start 04/14/19 at 00:30 Potassium Chloride (Micro-K) 8 meq DAILY PO ; Start 04/14/19 at 09:00 Spironolactone (Aldactone) 25 mg DAILY PO ; Start 04/14/19 at 09:00 Pantoprazole (Protonix Tab) 40 mg DAILY@06 PO Last administered on 04/15/19 06:13; Admin Dose 40 MG; Start 04/14/19 at 06:00 Fenofibrate (Tricor) 145 mg DAILY PO ; Start 04/14/19 at 09:00 Losartan Potassium (Cozaar) 100 mg DAILY PO ; Start 04/14/19 at 09:00 Acetaminophen (Tylenol Tab) 500 mg Q8 PRN PO MILD PAIN(1-3)OR ELEVATED TEMP Last administered on 04/14/19at 08:56; Admin Dose 500 MG; Start 04/14/19 at 00:30 Morphine Sulfate (morphine) 1 mg Q4H PRN IV SEVERE PAIN LEVEL 7-10 Last administered on 04/14/19at 21:32; Admin Dose 1 MG; Start 04/14/19 at 00:30 Zolpidem Tartrate (Ambien) 10 mg HS PRN PO INSOMNIA; Start 04/14/19 at 14:30 Furosemide (Lasix) 40 mg BID DIURETICS IV Last administered on 04/15/19at 17:49; Admin Dose 40 MG; Start 04/15/19 at 18:00 Enoxaparin Sodium (Lovenox) 40 mg BID SC ; Start 04/15/19 at 21:00 Levofloxacin (Levaquin) 500 mg DAILY@06 PO ; Start 04/16/19 at 06:00; Stop 04/16/19 at 06:01 Levofloxacin (Levaquin) 250 mg DAILY@06 PO ; Start 04/17/19 at 06:00 PEDRO KRUSE MD Apr 15, 2019 20:07
[2019-04-15] MEDS: ENOXAPARIN 40 MG/0.4 ML SYG SC SCH (21:32)
--- NOTE | 2019-04-15 23:14 | CONS ---
Assessment/Plan Assessment/Plan Hospital Course (Demo Recall) Hodgkin lymphoma- s/p chemotherapy PT HAS PROGRESSIVE REFRACTOPY DIS POST CHEMP AMD IMMUNOTHERAPY [facility] EVAL NOTED- re: GI AND ENT Anemia WITH COMPONENT ACD monitor Severe respiratory distress improving. IHD angina, Low LVEF dropped. Findings most consistent with mild ADHF with associated type II NSTEMI Dysphagia to solids and sometimes to liquids. Continue w/u. Pulmonary edema by x-ray with wheezing on admission, improved after lasix. Osteoarthritis with pain syndrome Anxiety disorder. Depression with grief reaction-s/p loss of . Urinary incontinence. Osteoporosis. Kyphosis. Postmenopausal syndrome. Brain atrophy on CT. Left sphenoid sinusitis on CT. Left ventricular hypertrophy. Urinary incontinence. Cerebrovascular accident, with left facial drooling, left facial weakness, with slurred speech and dysphagia. Mild left upper extremity weakness.mostly corrected. Hypertension, now normotensive. HX of PTCA with one sent and 3 balloon dilatation of narrow coronary arteries(; ) Medication noncompliance. Consultation Date/Type/Reason Admit Date/Time Apr 13, 2019 at 22:46 Initial Consult Date 04/14/19 Type of Consult [facility] [place] Requesting Provider: PEDRO KRUSE MD Date/Time of Note DATE: 04/15/19 TIME: 23:13 24 HR Interval Summary Free Text/Dictation all noted nad d/w dr OCHOA Exam/Review of Systems Exam Vitals Vital Signs Date Temp Pulse Resp B/P (MAP) Pulse Ox O2 O2 Flow FiO2 Time Delivery Rate 04/15/19 92 20:00 04/15/19 98.4 19 126/67 100 20:00 (86) 04/15/19 21 15:58 04/15/19 2.0 05:31 04/14/19 Room Air 19:47 Intake and Output 04/14/19 04/14/19 04/15/19 1515:00 23:00 07:00 IntakeIntake Total 300 ml 250 ml BalanceBalance 300 ml 250 ml Exam GENERAL: She is well-nourished woman in no acute distress, alert and oriented x3, somewhat aware of her condition. HEENT: Head is normocephalic, atraumatic. Eyes are anicteric. NECK: Supple. JVD is 6 to 7 cm. There is no lymphadenopathy, no thyromegaly. HEART: Regular, soft holosystolic murmur. PMI displaced leftward. ICD site is well healed. LUNGS: Coarse to base. ABDOMEN: Distended. Bowel sounds are present. There is no hepatosplenomegaly. GENITOURINARY: Intact. EXTREMITIES: Trace edema. Results Result Diagram: 04/14/19 0548 04/14/19 0548 Results 24hrs Laboratory Tests Test 04/15/19 00:47 Troponin I 0.900 *H Medications Medication Current Medications Acetaminophen (Tylenol Tab) 500 mg Q8 PRN PO pain and temp. more then 99F Last administered on 04/15/19at 16:44; Admin Dose 500 MG; Start 04/14/19 at 00:30 Albuterol (Proventil 0.083% (Neb)) 2.5 mg Q8H RESP THERAPY HHN Last administered on 04/15/19at 15:24; Admin Dose 2.5 MG; Start 04/14/19 at 08:00 Aspirin (Aspirin) 81 mg DAILY PO ; Start 04/14/19 at 09:00 Clopidogrel Bisulfate (plaVIX) 75 mg DAILY PO ; Start 04/14/19 at 09:00 Digoxin (Digoxin) 0.125 mg DAILY@1300 PO Last administered on 04/15/19at 13:59; Admin Dose 0.125 MG; Start 04/14/19 at 13:00 Folic Acid (Folic Acid) 1 mg DAILY PO ; Start 04/14/19 at 09:00 Albuterol/ Ipratropium (Duoneb) 3 ml Q4H RESP THERAPY PRN HHN SHORTNESS OF BREATH; Start 04/14/19 at 00:30 Isosorbide Mononitrate (Imdur) 30 mg DAILY PO ; Start 04/14/19 at 09:00 Levothyroxine Sodium (Synthroid) 125 mcg BEFORE BREAKFAST PO Last administered on 04/15/19at 06:13; Admin Dose 125 MCG; Start 04/14/19 at 07:00 Lorazepam (Ativan) 0.5 mg Q8 PRN PO ANXIETY Last administered on 04/14/19at 21:45; Admin Dose 0.5 MG; Start 04/14/19 at 00:30 Magnesium Oxide (Mag-Ox 400) 400 mg DAILY PO ; Start 04/14/19 at 09:00 Megestrol Acetate (Megace) 40 mg BID PO Last administered on 04/15/19 20:06; Admin Dose 40 MG; Start 04/14/19 at 00:30 Metoprolol Tartrate (Lopressor) 50 mg BID PO Last administered on 04/15/19 20:06; Admin Dose 50 MG; Start 04/14/19 at 00:30 Ondansetron HCl (Zofran Tab) 4 mg Q6H PRN PO nausea/vomiting Last administered on 04/14/19 21:44; Admin Dose 4 MG; Start 04/14/19 at 00:30 Potassium Chloride (Micro-K) 8 meq DAILY PO ; Start 04/14/19 at 09:00 Spironolactone (Aldactone) 25 mg DAILY PO ; Start 04/14/19 at 09:00 Pantoprazole (Protonix Tab) 40 mg DAILY@06 PO Last administered on 04/15/19 06:13; Admin Dose 40 MG; Start 04/14/19 at 06:00 Fenofibrate (Tricor) 145 mg DAILY PO ; Start 04/14/19 at 09:00 Losartan Potassium (Cozaar) 100 mg DAILY PO ; Start 04/14/19 at 09:00 Acetaminophen (Tylenol Tab) 500 mg Q8 PRN PO MILD PAIN(1-3)OR ELEVATED TEMP Last administered on 04/14/19 08:56; Admin Dose 500 MG; Start 04/14/19 at 00:30 Morphine Sulfate (morphine) 1 mg Q4H PRN IV SEVERE PAIN LEVEL 7-10 Last administered on 04/14/19 21:32; Admin Dose 1 MG; Start 04/14/19 at 00:30 Zolpidem Tartrate (Ambien) 10 mg HS PRN PO INSOMNIA; Start 04/14/19 at 14:30 Furosemide (Lasix) 40 mg BID DIURETICS IV Last administered on 04/15/19 17:49; Admin Dose 40 MG; Start 04/15/19 at 18:00 Enoxaparin Sodium (Lovenox) 40 mg BID SC Last administered on 04/15/19 21:32; Admin Dose 40 MG; Start 04/15/19 at 21:00 Levofloxacin (Levaquin) 500 mg DAILY@06 PO ; Start 04/16/19 at 06:00; Stop 04/16/19 at 06:01 Levofloxacin (Levaquin) 250 mg DAILY@06 PO ; Start 04/17/19 at 06:00 KALPANA ANGELES MD Apr 15, 2019 23:14
[2019-04-16] VITALS (10 sets, daily range): BP systolic 94–117; BP diastolic 54–75; PULSE 78–103; RESP 16–19
[2019-04-16] MEDS: PANTOPRAZOLE (EC) 40 MG TAB PO SCH (05:51)
[2019-04-16] MEDS: FUROSEMIDE 40 MG INJ IV SCH ×2 (05:58→17:29)
[2019-04-16] MEDS ORDERED: LEVOFLOXACIN 500 MG TAB PO SCH (06:00)
[2019-04-16] MEDS: LEVOTHYROXINE 125 MCG TAB PO SCH (06:35)
[2019-04-16] MEDS: ALBUTEROL 0.083% (NEB) 2.5 MG/3 ML AMP HHN SCH ×4 (08:00→23:48)
[2019-04-16] MEDS: FOLIC ACID 1 MG TAB PO SCH (08:29)
[2019-04-16] MEDS: ASPIRIN 81 MG TAB PO SCH (08:29)
[2019-04-16] MEDS: MEGESTROL 40 MG TAB PO SCH ×2 (08:30→20:32)
[2019-04-16] MEDS: SPIRONOLACTONE 25 MG TAB PO SCH (08:30)
[2019-04-16] MEDS: POTASSIUM CHLORIDE (SR) 8 MEQ CAP PO SCH (08:30)
[2019-04-16] MEDS: MAGNESIUM OXIDE 400 MG TAB PO SCH (08:30)
[2019-04-16] MEDS: METOPROLOL 50 MG TAB PO SCH ×2 (08:33→21:00)
[2019-04-16] MEDS: LOSARTAN 50 MG TAB PO SCH (08:33)
[2019-04-16] MEDS: ISOSORBIDE MONONITRATE(SR)30 MG TAB PO SCH (08:33)
[2019-04-16] MEDS: CLOPIDOGREL 75 MG TAB PO SCH (08:34)
[2019-04-16] MEDS: ENOXAPARIN 40 MG/0.4 ML SYG SC SCH ×2 (08:38→21:03)
[2019-04-16] MEDS: FENOFIBRATE 145 MG TAB PO SCH (09:00)
--- NOTE | 2019-04-16 09:11 | PN ---
Date/Time of Note Date/Time of Note DATE: 04/16/19 TIME: 09:11 Assessment/Plan VTE Prophylaxis Risk score (from Nsg)>0 risk: 3 SCD applied (from Ns): No SCD contraindicated: other (on.) Pharmacological prophylaxis: LMWH Lines/Catheters IV Catheter Type (from Nrs): [place] [employer] line still needed: No Urinary Cath still in place: No Reason Cath still needed: urinary retention Assessment/Plan Assessment/Plan 1. Severe respiratory distress with worsening of wheezing and inability to sleep. Improvingon. 2.IHD angina, new onset OK by positive troponin series still high. Discussed with Dr. Alvarez. HX of recent PTCA with one stent and 3 balloon dilatation of narrow coronary arteries(; according to the daughter). Status post stapling of mitral valve 6 months ago in [facility] with improvement of condition immediately after the procedure but still she is having frequent hospitalizati ons. Although it is evident that the cause is not over drinking possibly medication noncompliance. 3. Dysphagia to solids and sometimes to liquids now to everything. Refuses to eat secondary to pain.. 4. Pulmonary edema by x-ray with wheezing on admission, improved after lasix.Ej ection fraction is visually estimated at 25-30 %. 5. History of Hodgkin lymphoma- s/p chemotherapy and hydration 10 days ago. 6. Osteoarthritis with pain syndrome 7. Anxiety disorder. 8. Depression with grief reaction-s/p loss of . 9. Urinary incontinence. 10. Osteoporosis. 11. Kyphosis. 12. Postmenopausal syndrome. 13. Anemia with nl iron. 14. Brain atrophy on CT. 15. Left sphenoid sinusitis on CT. 16. Left ventricular hypertrophy. 17. Urinary incontinence. 18.Cerebrovascular accident, with left facial drooling, left facial weakness, with slurred speech and dysphagia. Mild left upper extremity weakness.mostly corrected. 19. Hypertension, now normotensive.Cardiomegaly on cxr 20. Status post left subclavian area pacemaker implantation about 3 months ago. 21. Status post mitral valve endocardial manipulation with stapling of the valves with good clinical results. 22. Recurrent episodes of V. tach now 8 complexes on a monitor and SVT; placed on the monitor but cardiology consult. 23.Weight loss mainly due to of not eating well. 24.Sleeplessness 25.Poor self expression capacity and getting worse. Talks for minutes but unable to conclude talk or be precise. 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 20.Medication noncompliance. Result Diagram: 04/14/1954704/14/1948 Results 24hrs Laboratory Tests Test 04/16/19 05:50 04/16/19 05:51 Troponin I 0.360 *H Triglycerides Level 129 Cholesterol Level 121 LDL Cholesterol, Calculated 65 HDL Cholesterol 30 L Cholesterol/HDL Ratio 4.0 Subjective 24 Hr Interval Summary Free Text/Dictation sob improved. Letter to go home. The patient was explained that she is having a heart attack. Due to her blood work please proving that. That she needs angiography otherwise it can increase the probability of new arrhythmias and possible . She just bluntly responded that it is okay for mid to the . Discussed with family. Family wants to keep her still continue efforts to plan to do an angiography. Constitutional: improved, diaphoresis, poor po, requiring O2; No no complaints, No chills, No disoriented, No febrile, No requiring IVF, No other Eyes: No no complaints, No pain, No discharge, No redness, No visual change, No other ENT: pain, congestion, dysphagia, sore throat; No no complaints, No bleeding, No discharge, No other Respiratory: cough; No no complaints, No pain, No pleuritic pain, No shortness of breath, No sputum, No wheezing, No other Cardiovascular: chest pain, edema, lightheadedness, orthopenea, palpitations, paroxysmal nocturnal dyspnea; No no complaints, No other Gastrointestinal: constipation, flatus, nausea, passing stool, vomiting; No no complaints, No pain, No blood, No decreased appetite, No diarrhea, No other Genitourinary: dysuria; No no complaints, No bleeding, No discharge, No flank pain, No hematuria, No other Musculoskeletal: back pain, bone/joint pain; No no complaints, No neck pain, No restricted range of motion, No swelling, N o other Skin: No no complaints, No bruising, No erythema, No laceration, No pruritis, No rash, No skin lesions, No other Neurologic: headache; No no complaints, No confusion, No dizziness, No focal-weakness, No syncope, No seizure, No other Endocrine: No no complaints, No polyuria, No polydypsia, No dry skin, No temp intolerance, No other Lymphatic: No no complaints, No adenopathy, No tender nodes, No lymphadema, No other Psychological: anxiety; No no complaints, No nl mood/affect, No confusion, No depression, No suicidal, No other Immunologic: No no complaints, No immunodeficiency, No pruritis, No rhinitis, No urticaria, No other Exam/Review of Systems Exam Vitals Vital Signs Date Temp Pulse Resp B/P (MAP) Pulse Ox O2 O2 Flow FiO2 Time Delivery Rate 04/16/19 89 08:11 04/16/19 98.0 17 103/68 97 07:48 (80) 04/15/19 21 15:58 04/15/19 2.0 05:31 04/14/19 Room Air 19:47 Intake and Output 04/15/19 04/15/19 04/16/19 1515:00 23:00 07:00 IntakeIntake Total 700 ml 200 ml BalanceBalance 700 ml 200 ml Constitutional: alert, oriented, well developed, distress, frail, obese; No non-verbal, No other Psych: anxiety, depression; No no complaints, No nl mood/affect, No confusion, No suicidal, No other Head: normocephalic, atraumatic; No lacerations, No hematomas, No other Eyes: EOMI, nl lids, PERRL; No nl conjunctiva, No nl sclera, No icteric, No fundi, disc, No other ENMT: No nl external ears & nose, No nl lips & teeth, No nl nasal mucosa & septum, No mucosa pink and moist, No intubated, No tympanic membranes, No other Neck: supple, bruits, thyromegaly, nuchal rigidity; No non-tender, No jvd, No masses, No other Respiratory: normal air movement, congested cough, diminished breath sounds; No clear to auscultation, No crackles/rales, No intercostal retraction, No labored breathing, No respirations, No tactile fremitus, No wheezing, No other Cardiovascular: regular rate and rhythm, nl pulses, edema, jugular venous distention (JVD), systolic murmur Gastrointestinal: soft, nl liver, spleen, bowel sounds, distended; No non-tender, No ascites, No firm, No hepatomegaly, No mass, No rebound or guarding, No splenomegaly, No surgical scars, No tender, No other Musculoskeletal: joint tenderness, muscle tone, muscle weakness; No nl extremities to inspection, No nl gait and stance, No range of motion, No spine non-tender, No swelling, No other Extremities: normal pulses, edema 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: SUPPLY TECH II-XII intact, lethargic; No nl mental status, No nl speech, No nl strength, No confused, No DTR's symmetric, No focal weakness, No numbness, No reflexes, No unresponsive, No other Skin: nl turgor; No rash or lesions, No diaphoresis, No ecchymosis, No laceration, No puncture, No other Lymph: No nl lymph nodes, No enlarged, No nontender, No other Results Results 24hrs Laboratory Tests Test 04/16/19 05:50 04/16/19 05:51 Troponin I 0.360 *H Triglycerides Level 129 Cholesterol Level 121 LDL Cholesterol, Calculated 65 HDL Cholesterol 30 L Cholesterol/HDL Ratio 4.0 Medications Medication Current Medications Acetaminophen (Tylenol Tab) 500 mg Q8 PRN PO pain and temp. more then 99F Last administered on 04/15/19at 16:44; Admin Dose 500 MG; Start 04/14/19 at 00:30 Albuterol (Proventil 0.083% (Neb)) 2.5 mg Q8H RESP THERAPY HHN Last administered on 04/15/19at 15:24; Admin Dose 2.5 MG; Start 04/14/19 at 08:00 Aspirin (Aspirin) 81 mg DAILY PO ; Start 04/14/19 at 09:00 Clopidogrel Bisulfate (plaVIX) 75 mg DAILY PO ; Start 04/14/19 at 09:00 Digoxin (Digoxin) 0.125 mg DAILY@1300 PO Last administered on 04/15/19at 13:59; Admin Dose 0.125 MG; Start 04/14/19 at 13:00 Folic Acid (Folic Acid) 1 mg DAILY PO ; Start 04/14/19 at 09:00 Albuterol/ Ipratropium (Duoneb) 3 ml Q4H RESP THERAPY PRN HHN SHORTNESS OF BREATH; Start 04/14/19 at 00:30 Isosorbide Mononitrate (Imdur) 30 mg DAILY PO ; Start 04/14/19 at 09:00 Levothyroxine Sodium (Synthroid) 125 mcg BEFORE BREAKFAST PO Last administered on 04/16/19 06:35; Admin Dose 125 MCG; Start 04/14/19 at 07:00 Lorazepam (Ativan) 0.5 mg Q8 PRN PO ANXIETY Last administered on 04/14/19 21:45; Admin Dose 0.5 MG; Start 04/14/19 at 00:30 Magnesium Oxide (Mag-Ox 400) 400 mg DAILY PO ; Start 04/14/19 at 09:00 Megestrol Acetate (Megace) 40 mg BID PO Last administered on 04/15/19 20:06; Admin Dose 40 MG; Start 04/14/19 at 00:30 Metoprolol Tartrate (Lopressor) 50 mg BID PO Last administered on 04/15/19 20:06; Admin Dose 50 MG; Start 04/14/19 at 00:30 Ondansetron HCl (Zofran Tab) 4 mg Q6H PRN PO nausea/vomiting Last administered on 04/14/19 21:44; Admin Dose 4 MG; Start 04/14/19 at 00:30 Potassium Chloride (Micro-K) 8 meq DAILY PO ; Start 04/14/19 at 09:00 Spironolactone (Aldactone) 25 mg DAILY PO ; Start 04/14/19 at 09:00 Pantoprazole (Protonix Tab) 40 mg DAILY@06 PO Last administered on 04/16/19 05:51; Admin Dose 40 MG; Start 04/14/19 at 06:00 Fenofibrate (Tricor) 145 mg DAILY PO ; Start 04/14/19 at 09:00 Losartan Potassium (Cozaar) 100 mg DAILY PO ; Start 04/14/19 at 09:00 Acetaminophen (Tylenol Tab) 500 mg Q8 PRN PO MILD PAIN(1-3)OR ELEVATED TEMP Last administered on 04/14/19at 08:56; Admin Dose 500 MG; Start 04/14/19 at 00:30 Morphine Sulfate (morphine) 1 mg Q4H PRN IV SEVERE PAIN LEVEL 7-10 Last administered on 04/14/19 21:32; Admin Dose 1 MG; Start 04/14/19 at 00:30 Zolpidem Tartrate (Ambien) 10 mg HS PRN PO INSOMNIA; Start 04/14/19 at 14:30 Furosemide (Lasix) 40 mg BID DIURETICS IV Last administered on 04/16/19at 05:58; Admin Dose 40 MG; Start 04/15/19 at 18:00 Enoxaparin Sodium (Lovenox) 40 mg BID SC Last administered on 04/15/19at 21:32; Admin Dose 40 MG; Start 04/15/19 at 21:00 Levofloxacin (Levaquin) 250 mg DAILY@06 PO ; Start 04/17/19 at 06:00 PEDRO KRUSE MD Apr 16, 2019 09:11
--- NOTE | 2019-04-16 09:44 | CONS ---
Consult Date/Type/Reason Admit Date/Time Apr 13, 2019 at 22:46 Initial Consult Date 04/14/19 Requesting Provider: PEDRO KRUSE MD Date/Time of Note DATE: 04/16/19 TIME: 09:41 Subjective NO acute events - troponin better - no active CP, only L side of neck pain reporte - pt wants to go home - does not want any intervention. ROS: No fever, no chills, no nausea, no vomiting, no diarrhea/constipation - + neck pain, ,mild SOB Objective Vitals Vital Signs Date Temp Pulse Resp B/P (MAP) Pulse Ox O2 O2 Flow FiO2 Time Delivery Rate 04/16/19 89 08:11 04/16/19 98.0 17 103/68 97 07:48 (80) 04/15/19 21 15:58 04/15/19 2.0 05:31 04/14/19 Room Air 19:47 Intake and Output 04/15/19 04/15/19 04/16/19 1515:00 23:00 07:00 IntakeIntake Total 700 ml 200 ml BalanceBalance 700 ml 200 ml Exam General: WN/WD/NAD, AOx 2-3 HEENT: Unicetric/atraumatic/EOMI (follow commands) NECK: JVD elevated, no thyromegaly Lymph: no lymphadenopathy HEART: regular with no S3, II/ systolic murmur at apex, PMI L LUNGS: Coarse sounds ABD: soft, NT, ND, +BS : Intact Neuro: non focal SKIN: chronic changes EXT: trace edema Results/Medications Result Diagram: 04/14/19 0548 04/14/1948 Results 24 hrs Laboratory Tests Test 04/16/19 05:50 04/16/19 05:51 Troponin I 0.360 *H Triglycerides Level 129 Cholesterol Level 121 LDL Cholesterol, Calculated 65 HDL Cholesterol 30 L Cholesterol/HDL Ratio 4.0 Home Meds Active Scripts Ipratropium-Albuterol (Ipratropium-Albuterol) 0.5-3 Mg/3 Ml Ampul.neb, 3 ML HHN Q4H RESP THERAPY PRN for SHORTNESS OF BREATH for 30 Days, #90 Prov:PEDRO KRUSE MD 09/16/18 Albuterol Sulfate* (Albuterol Sulfate* Neb) 0.083%-3 Ml Neb, 2.5 MG HHN Q8H RESP THERAPY for 90 Days, #90 CAP 2 Refills Prov:PEDRO KRUSE MD 09/16/18 Fenofibrate* (Fenofibrate*) 200 Mg Cap, 200 MG PO DAILY for 30 Days, #30 CAP Prov:PEDRO KRUSE MD 09/16/18 Furosemide* (Furosemide*) 40 Mg Tablet, 40 MG PO DAILY for 30 Days, #30 TAB Prov:PEDRO KRUSE MD 09/16/18 Spironolactone* (Aldactone*) 25 Mg Tablet, 25 MG PO DAILY, #30 TAB Prov:PEDRO KRUSE MD 09/16/18 Megestrol Acetate* (Megace*) 40 Mg Tab, 40 MG PO BID for 60 Days, #30 TAB Prov:PEDRO KRUSE MD 09/16/18 Digoxin* (Lanoxin*) 0.125 Mg Tablet, 0.125 MG PO DAILY for 30 Days, #30 TAB Prov:PEDRO KRUSE MD 09/16/18 Potassium Chloride* (Potassium Chloride*) 8 Meq Capsule.er, 8 MEQ PO DAILY for 30 Days, #30 CAP Prov:PEDRO KRUSE MD 09/16/18 Isosorbide Mononitrate* (Isosorbide Mononitrate*) 30 Mg Tab.er.24h, 30 MG PO DAILY for 30 Days, #30 TAB Prov:PEDRO KRUSE MD 09/16/18 Clopidogrel Bisulfate (Clopidogrel) 75 Mg Tablet, 75 MG PO DAILY, #30 TAB Prov:PEDRO KRUSE MD 09/16/18 Acetaminophen* (Tylenol*) 500 Mg Tab, 500 MG PO Q8 PRN for pain and temp. more then 99F for 30 Days, #90 TAB Prov:PEDRO KRUSE MD 09/16/18 Metoprolol Tartrate* (Lopressor*) 50 Mg Tab, 50 MG PO BID, #60 TAB Prov:PEDRO KRUSE MD 09/16/18 Folic Acid* (Folic Acid*) 1 Mg Tablet, 1 MG PO DAILY for 30 Days, #30 TAB Prov:PEDRO KRUSE MD 09/16/18 Losartan-Hydrochlorothiazide (Losartan-HCTZ) 100-25 Mg Tab, 1 TAB PO DAILY for 30 Days, #30 TAB Prov:PEDRO KRUSE MD 09/16/18 Aspirin* (Aspirin* Chew) 81 Mg Tab.chew, 81 MG PO DAILY for 30 Days, #30 TAB.CHEW Prov:PEDRO KRUSE MD 09/16/18 Reported Medications Levothyroxine Sodium* (Levothyroxine Sodium*) 125 Mcg Tablet, 125 MCG PO BEFORE BREAKFAST, #30 TAB 02/11/19 Esomeprazole Mag Trihydrate (Nexium) 40 Mg Capsule.dr, 40 MG PO DAILY, #30 CAP 02/11/19 Lorazepam* (Lorazepam*) 0.5 Mg Tablet, 0.5 MG PO Q8 PRN for ANXIETY, TAB 02/11/19 Magnesium Oxide* (Magnesium Oxide*) 400 Mg Tablet, 400 MG PO DAILY, TAB 02/11/19 Ondansetron Hcl* (Ondansetron Hcl*) 4 Mg Tablet, 4 MG PO Q6H PRN for nausea/vomiting, TAB 02/11/19 Ergocalciferol* (Drisdol* (Vitamin D2)) 50,000 Unit Capsule, 68336 UNIT PO Q7D for 30 Days, #4 CAP 08/04/16 Medications Current Medications Acetaminophen (Tylenol Tab) 500 mg Q8 PRN PO pain and temp. more then 99F Last administered on 04/15/19at 16:44; Admin Dose 500 MG; Start 04/14/19 at 00:30 Albuterol (Proventil 0.083% (Neb)) 2.5 mg Q8H RESP THERAPY HHN Last administered on 04/15/19at 15:24; Admin Dose 2.5 MG; Start 04/14/19 at 08:00 Aspirin (Aspirin) 81 mg DAILY PO ; Start 04/14/19 at 09:00 Clopidogrel Bisulfate (plaVIX) 75 mg DAILY PO ; Start 04/14/19 at 09:00 Digoxin (Digoxin) 0.125 mg DAILY@1300 PO Last administered on 04/15/19at 13:59; Admin Dose 0.125 MG; Start 04/14/19 at 13:00 Folic Acid (Folic Acid) 1 mg DAILY PO ; Start 04/14/19 at 09:00 Albuterol/ Ipratropium (Duoneb) 3 ml Q4H RESP THERAPY PRN HHN SHORTNESS OF BREATH; Start 04/14/19 at 00:30 Isosorbide Mononitrate (Imdur) 30 mg DAILY PO ; Start 04/14/19 at 09:00 Levothyroxine Sodium (Synthroid) 125 mcg BEFORE BREAKFAST PO Last administered on 04/16/19 06:35; Admin Dose 125 MCG; Start 04/14/19 at 07:00 Lorazepam (Ativan) 0.5 mg Q8 PRN PO ANXIETY Last administered on 04/14/19 21:45; Admin Dose 0.5 MG; Start 04/14/19 at 00:30 Magnesium Oxide (Mag-Ox 400) 400 mg DAILY PO ; Start 04/14/19 at 09:00 Megestrol Acetate (Megace) 40 mg BID PO Last administered on 04/15/19 20:06; Admin Dose 40 MG; Start 04/14/19 at 00:30 Metoprolol Tartrate (Lopressor) 50 mg BID PO Last administered on 04/15/19 20:06; Admin Dose 50 MG; Start 04/14/19 at 00:30 Ondansetron HCl (Zofran Tab) 4 mg Q6H PRN PO nausea/vomiting Last administered on 04/14/19 21:44; Admin Dose 4 MG; Start 04/14/19 at 00:30 Potassium Chloride (Micro-K) 8 meq DAILY PO ; Start 04/14/19 at 09:00 Spironolactone (Aldactone) 25 mg DAILY PO ; Start 04/14/19 at 09:00 Pantoprazole (Protonix Tab) 40 mg DAILY@06 PO Last administered on 04/16/19 05:51; Admin Dose 40 MG; Start 04/14/19 at 06:00 Fenofibrate (Tricor) 145 mg DAILY PO ; Start 04/14/19 at 09:00 Losartan Potassium (Cozaar) 100 mg DAILY PO ; Start 04/14/19 at 09:00 Acetaminophen (Tylenol Tab) 500 mg Q8 PRN PO MILD PAIN(1-3)OR ELEVATED TEMP Last administered on 04/14/19at 08:56; Admin Dose 500 MG; Start 04/14/19 at 00:30 Morphine Sulfate (morphine) 1 mg Q4H PRN IV SEVERE PAIN LEVEL 7-10 Last administered on 04/14/19at 21:32; Admin Dose 1 MG; Start 04/14/19 at 00:30 Zolpidem Tartrate (Ambien) 10 mg HS PRN PO INSOMNIA; Start 04/14/19 at 14:30 Furosemide (Lasix) 40 mg BID DIURETICS IV Last administered on 04/16/19at 05:58; Admin Dose 40 MG; Start 04/15/19 at 18:00 Enoxaparin Sodium (Lovenox) 40 mg BID SC Last administered on 04/15/19at 21:32; Admin Dose 40 MG; Start 04/15/19 at 21:00 Levofloxacin (Levaquin) 250 mg DAILY@06 PO ; Start 04/17/19 at 06:00 Assessment/Plan Hospital Course (Demo Recall) 1.Nstemi-Had some chest pain and enzymes are downtrending. Jen type 2 demand infarct. Patient refusing all medications. DOES NOT want any inavsive RX - hope will comply with therapy. 2.CHF-systolic acute on chronic EF 20-25% by echo 03/01 jen due to combination of cad and CTX. Lexiscan 03/01 with no sig ischemia/EF 19% - ICD in place. 3.Chest pain-currently resolved - troponin downtrending. 4.sob-secondary to CHF 5.dysphagia-patient stating that medications/food geeting stuck in throat 6.Lymphoma-s/p CTX. But per onc note disease is progressive and refractory - defer to primary team. 7.Dyslipidemia 8.UTI 9. H/O ICD 10. NSVT-short run overnight 11.MR- now mild by echo 03/01 s/p mitral valve e-clip BEULAH MONTGOMERY MD Apr 16, 2019 09:44
[2019-04-16] MEDS: DIGOXIN 0.125 MG TAB PO SCH (12:39)
--- NOTE | 2019-04-16 12:49 | CONS ---
Consult Date/Type/Reason Admit Date/Time Apr 13, 2019 at 22:46 Initial Consult Date 04/14/19 Type of Consult Pulmonary Requesting Provider: PEDRO KRUSE MD Date/Time of Note DATE: 04/16/19 TIME: 12:49 Subjective Comfortable on room air no respiratory distress Objective Vital Signs Date Temp Pulse Resp B/P (MAP) Pulse Ox O2 O2 Flow FiO2 Time Delivery Rate 04/16/19 98.1 98 16 117/75 97 11:37 (89) 04/15/19 21 15:58 04/15/19 2.0 05:31 04/14/19 Room Air 19:47 Intake and Output 04/15/19 04/15/19 04/16/19 1515:00 23:00 07:00 IntakeIntake Total 700 ml 200 ml BalanceBalance 700 ml 200 ml Exam GENERAL: Elderly [place] lady comfortable at rest no acute distress VITAL SIGNS: per chart NECK: Supple. No JVD or lymphadenopathy. CARDIAC EXAM: S1, S2. No added sounds or murmurs. CHEST: Few bibasilar rales ABDOMEN: Soft, nontender. No guarding or rebound. EXTREMITIES: No cyanosis, clubbing or edema. NEUROLOGIC: Generalized weakness. No focal deficits. Vent Setting Fraction of Inspired Oxygen pe: 21 Results/Medications Result Diagram: 04/14/19 0548 04/14/19 0548 Results 24 hrs Laboratory Tests Test 04/16/19 05:50 04/16/19 05:51 Troponin I 0.360 *H Triglycerides Level 129 Cholesterol Level 121 LDL Cholesterol, Calculated 65 HDL Cholesterol 30 L Cholesterol/HDL Ratio 4.0 Medications Current Medications Acetaminophen (Tylenol Tab) 500 mg Q8 PRN PO pain and temp. more then 99F Last administered on 04/15/19 16:44; Admin Dose 500 MG; Start 04/14/19 at 00:30 Albuterol (Proventil 0.083% (Neb)) 2.5 mg Q8H RESP THERAPY HHN Last administered on 04/15/19at 15:24; Admin Dose 2.5 MG; Start 04/14/19 at 08:00 Aspirin (Aspirin) 81 mg DAILY PO Last administered on 04/16/19 08:29; Admin Dose 81 MG; Start 04/14/19 at 09:00 Clopidogrel Bisulfate (plaVIX) 75 mg DAILY PO Last administered on 04/16/19 08:34; Admin Dose 75 MG; Start 04/14/19 at 09:00 Digoxin (Digoxin) 0.125 mg DAILY@1300 PO Last administered on 04/16/19 12:39; Admin Dose 0.125 MG; Start 04/14/19 at 13:00 Folic Acid (Folic Acid) 1 mg DAILY PO Last administered on 04/16/19 08:29; Admin Dose 1 MG; Start 04/14/19 at 09:00 Albuterol/ Ipratropium (Duoneb) 3 ml Q4H RESP THERAPY PRN HHN SHORTNESS OF BREATH; Start 04/14/19 at 00:30 Isosorbide Mononitrate (Imdur) 30 mg DAILY PO ; Start 04/14/19 at 09:00 Levothyroxine Sodium (Synthroid) 125 mcg BEFORE BREAKFAST PO Last administered on 04/16/19 06:35; Admin Dose 125 MCG; Start 04/14/19 at 07:00 Lorazepam (Ativan) 0.5 mg Q8 PRN PO ANXIETY Last administered on 04/14/19 21:45; Admin Dose 0.5 MG; Start 04/14/19 at 00:30 Magnesium Oxide (Mag-Ox 400) 400 mg DAILY PO Last administered on 04/16/19 08:30; Admin Dose 400 MG; Start 04/14/19 at 09:00 Megestrol Acetate (Megace) 40 mg BID PO Last administered on 04/16/19 08:30; Admin Dose 40 MG; Start 04/14/19 at 00:30 Metoprolol Tartrate (Lopressor) 50 mg BID PO Last administered on 04/15/19 20:06; Admin Dose 50 MG; Start 04/14/19 at 00:30 Ondansetron HCl (Zofran Tab) 4 mg Q6H PRN PO nausea/vomiting Last administered on 04/14/19 21:44; Admin Dose 4 MG; Start 04/14/19 at 00:30 Potassium Chloride (Micro-K) 8 meq DAILY PO Last administered on 04/16/19 08:30; Admin Dose 8 MEQ; Start 04/14/19 at 09:00 Spironolactone (Aldactone) 25 mg DAILY PO Last administered on 6/4/19at 08:30; Admin Dose 25 MG; Start 04/14/19 at 09:00 Pantoprazole (Protonix Tab) 40 mg DAILY@06 PO Last administered on 04/16/19at 05:51; Admin Dose 40 MG; Start 04/14/19 at 06:00 Fenofibrate (Tricor) 145 mg DAILY PO ; Start 04/14/19 at 09:00 Losartan Potassium (Cozaar) 100 mg DAILY PO ; Start 04/14/19 at 09:00 Acetaminophen (Tylenol Tab) 500 mg Q8 PRN PO MILD PAIN(1-3)OR ELEVATED TEMP Last administered on 04/14/19at 08:56; Admin Dose 500 MG; Start 04/14/19 at 00:30 Morphine Sulfate (morphine) 1 mg Q4H PRN IV SEVERE PAIN LEVEL 7-10 Last adm inistered on 04/14/19at 21:32; Admin Dose 1 MG; Start 04/14/19 at 00:30 Zolpidem Tartrate (Ambien) 10 mg HS PRN PO INSOMNIA; Start 04/14/19 at 14:30 Furosemide (Lasix) 40 mg BID DIURETICS IV Last administered on 04/16/19at 05:58; Admin Dose 40 MG; Start 04/15/19 at 18:00 Enoxaparin Sodium (Lovenox) 40 mg BID SC Last administered on 04/16/19at 08:38; Admin Dose 40 MG; Start 04/15/19 at 21:00 Levofloxacin (Levaquin) 250 mg DAILY@06 PO ; Start 04/17/19 at 06:00 Assessment/Plan Hospital Course (Demo Recall) IMP: 1. Dyspnea--in a patient with ischemic CMY and HFrEF. Findings most consistent with mild ADHF with associated type II NSTEMI 2. ADHF 3. Type II NSTEMI 4. CAD 5. UTI RECS: 1. Diuresis 2. Afterload reduction as per CV 3. Follow TnI 4. Encourage out of bed 5. De-escalate Abx Discharge planning okay from pulmonary standpoint Outpatient pulmonary follow-up SANTA HARRISON MD, [facility] Apr 16, 2019 12:49
--- NOTE | 2019-04-16 15:18 | CONS ---
Assessment/Plan Assessment/Plan Hospital Course (Demo Recall) No events overnight looks comfortable, no fevers Antimicrobials: Levaquin Physical examination well-developed fragile elderly [place] woman who is alert in no distress. Head atraumatic normocephalic neck is supple chest rise symmetrical breath sounds clear heart S1-S2 abdomen soft bowel sounds present Assessment: 1. Non-ST elevation DC 2. UTI per urinalysis 3. 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, continue present care, pulmonary/card rec-s Consultation Date/Type/Reason Admit Date/Time Apr 13, 2019 at 22:46 Initial Consult Date 04/14/19 Type of Consult id Requesting Provider: PEDRO KRUSE MD Date/Time of Note DATE: 04/16/19 TIME: 15:17 Exam/Review of Systems Exam Vitals Vital Signs Date Temp Pulse Resp B/P (MAP) Pulse Ox O2 O2 Flow FiO2 Time Delivery Rate 04/16/19 98.1 78 16 110/62 97 15:13 (78) 04/15/19 21 15:58 04/15/19 2.0 05:31 04/14/19 Room Air 19:47 Intake and Output 04/15/19 04/15/19 04/16/19 1515:00 23:00 07:00 IntakeIntake Total 700 ml 200 ml BalanceBalance 700 ml 200 ml Results Result Diagram: 04/14/19 0548 04/14/19 0548 Results 24hrs Laboratory Tests Test 04/16/19 05:50 04/16/19 05:51 Troponin I 0.360 *H Triglycerides Level 129 Cholesterol Level 121 LDL Cholesterol, Calculated 65 HDL Cholesterol 30 L Cholesterol/HDL Ratio 4.0 Medications Medication Current Medications Acetaminophen (Tylenol Tab) 500 mg Q8 PRN PO pain and temp. more then 99F Last administered on 04/15/19at 16:44; Admin Dose 500 MG; Start 04/14/19 at 00:30 Albuterol (Proventil 0.083% (Neb)) 2.5 mg Q8H RESP THERAPY HHN Last administered on 04/15/19at 15:24; Admin Dose 2.5 MG; Start 04/14/19 at 08:00 Aspirin (Aspirin) 81 mg DAILY PO Last administered on 04/16/19at 08:29; Admin Dose 81 MG; Start 04/14/19 at 09:00 Clopidogrel Bisulfate (plaVIX) 75 mg DAILY PO Last administered on 04/16/19 08:34; Admin Dose 75 MG; Start 04/14/19 at 09:00 Digoxin (Digoxin) 0.125 mg DAILY@1300 PO Last administered on 04/16/19 12:39; Admin Dose 0.125 MG; Start 04/14/19 at 13:00 Folic Acid (Folic Acid) 1 mg DAILY PO Last administered on 04/16/19 08:29; Admin Dose 1 MG; Start 04/14/19 at 09:00 Albuterol/ Ipratropium (Duoneb) 3 ml Q4H RESP THERAPY PRN HHN SHORTNESS OF BREATH; Start 04/14/19 at 00:30 Isosorbide Mononitrate (Imdur) 30 mg DAILY PO ; Start 04/14/19 at 09:00 Levothyroxine Sodium (Synthroid) 125 mcg BEFORE BREAKFAST PO Last administered on 04/16/19 06:35; Admin Dose 125 MCG; Start 04/14/19 at 07:00 Lorazepam (Ativan) 0.5 mg Q8 PRN PO ANXIETY Last administered on 04/14/19 21:45; Admin Dose 0.5 MG; Start 04/14/19 at 00:30 Magnesium Oxide (Mag-Ox 400) 400 mg DAILY PO Last administered on 04/16/19 08 :30; Admin Dose 400 MG; Start 04/14/19 at 09:00 Megestrol Acetate (Megace) 40 mg BID PO Last administered on 04/16/19 08:30; Admin Dose 40 MG; Start 04/14/19 at 00:30 Metoprolol Tartrate (Lopressor) 50 mg BID PO Last administered on 04/15/19 20:06; Admin Dose 50 MG; Start 04/14/19 at 00:30 Ondansetron HCl (Zofran Tab) 4 mg Q6H PRN PO nausea/vomiting Last administered on 04/14/19 21:44; Admin Dose 4 MG; Start 04/14/19 at 00:30 Potassium Chloride (Micro-K) 8 meq DAILY PO Last administered on 04/16/19 08:30; Admin Dose 8 MEQ; Start 04/14/19 at 09:00 Spironolactone (Aldactone) 25 mg DAILY PO Last administered on 04/16/19 08:30; Admin Dose 25 MG; Start 04/14/19 at 09:00 Pantoprazole (Protonix Tab) 40 mg DAILY@06 PO Last administered on 04/16/19at 05:51; Admin Dose 40 MG; Start 04/14/19 at 06:00 Fenofibrate (Tricor) 145 mg DAILY PO ; Start 04/14/19 at 09:00 Losartan Potassium (Cozaar) 100 mg DAILY PO ; Start 04/14/19 at 09:00 Acetaminophen (Tylenol Tab) 500 mg Q8 PRN PO MILD PAIN(1-3)OR ELEVATED TEMP Last administered on 04/14/19 08:56; Admin Dose 500 MG; Start 04/14/19 at 00:30 Morphine Sulfate (morphine) 1 mg Q4H PRN IV SEVERE PAIN LEVEL 7-10 Last administered on 04/14/19at 21:32; Admin Dose 1 MG; Start 04/14/19 at 00:30 Zolpidem Tartrate (Ambien) 10 mg HS PRN PO INSOMNIA; Start 04/14/19 at 14:30 Furosemide (Lasix) 40 mg BID DIURETICS IV Last administered on 04/16/19at 05:58; Admin Dose 40 MG; Start 04/15/19 at 18:00 Enoxaparin Sodium (Lovenox) 40 mg BID SC Last administered on 04/16/19at 08:38; Admin Dose 40 MG; Start 04/15/19 at 21:00 Levofloxacin (Levaquin) 250 mg DAILY@06 PO ; Start 04/17/19 at 06:00 CARMELITA TINSLEY NP Apr 16, 2019 15:18
[2019-04-16] MEDS: ACETAMINOPHEN 500 MG TAB PO PRN (20:33)
[2019-04-16] MEDS: ZOLPIDEM 5 MG TAB PO PRN (23:25)
[2019-04-17] VITALS (11 sets, daily range): BP systolic 91–125; BP diastolic 59–82; PULSE 72–118; RESP 16–19
[2019-04-17] MEDS ORDERED: LEVOFLOXACIN 250 MG TAB PO SCH (06:00)
[2019-04-17] MEDS: FUROSEMIDE 40 MG INJ IV SCH ×2 (06:35→17:51)
[2019-04-17] MEDS: PANTOPRAZOLE (EC) 40 MG TAB PO SCH (06:35)
[2019-04-17] MEDS: LEVOTHYROXINE 125 MCG TAB PO SCH (06:35)
[2019-04-17] MEDS: ALBUTEROL 0.083% (NEB) 2.5 MG/3 ML AMP HHN SCH ×3 (08:00→23:33)
[2019-04-17] MEDS: CLOPIDOGREL 75 MG TAB PO SCH (08:25)
[2019-04-17] MEDS: ASPIRIN 81 MG TAB PO SCH (08:25)
[2019-04-17] MEDS: SPIRONOLACTONE 25 MG TAB PO SCH (08:26)
[2019-04-17] MEDS: MAGNESIUM OXIDE 400 MG TAB PO SCH (08:26)
[2019-04-17] MEDS: ISOSORBIDE MONONITRATE(SR)30 MG TAB PO SCH (08:27)
[2019-04-17] MEDS: LOSARTAN 50 MG TAB PO SCH (08:27)
[2019-04-17] MEDS: METOPROLOL 50 MG TAB PO SCH (08:27)
[2019-04-17] MEDS: ENOXAPARIN 40 MG/0.4 ML SYG SC SCH (08:33)
[2019-04-17] MEDS: FOLIC ACID 1 MG TAB PO SCH (08:34)
[2019-04-17] MEDS: POTASSIUM CHLORIDE (SR) 8 MEQ CAP PO SCH (08:34)
[2019-04-17] MEDS: MEGESTROL 40 MG TAB PO SCH ×2 (08:34→21:00)
[2019-04-17] MEDS: FENOFIBRATE 145 MG TAB PO SCH (08:34)
--- NOTE | 2019-04-17 10:59 | CONS ---
Consult Date/Type/Reason Admit Date/Time Apr 13, 2019 at 22:46 Initial Consult Date 04/14/19 Type of Consult Pulmonary Requesting Provider: PEDRO KRUSE MD Date/Time of Note DATE: 04/17/19 TIME: 10:58 Subjective Patient appears comfortable this morning no respiratory distress Objective Vital Signs Date Temp Pulse Resp B/P (MAP) Pulse Ox O2 O2 Flow FiO2 Time Delivery Rate 04/17/19 113 08:30 04/17/19 98.1 16 101/68 96 07:28 (79) 04/15/19 21 15:58 04/15/19 2.0 05:31 04/14/19 Room Air 19:47 Intake and Output 04/16/19 04/16/19 04/17/19 1515:00 23:00 07:00 IntakeIntake Total 850 ml BalanceBalance 850 ml Exam GENERAL: Elderly Ethiopian lady comfortable at rest no acute distress VITAL SIGNS: per chart NECK: Supple. No JVD or lymphadenopathy. CARDIAC EXAM: S1, S2. No added sounds or murmurs. CHEST: Few bibasilar rales ABDOMEN: Soft, nontender. No guarding or rebound. EXTREMITIES: No cyanosis, clubbing or edema. NEUROLOGIC: Generalized weakness. No focal deficits. Vent Setting Fraction of Inspired Oxygen pe: 21 Results/Medications Result Diagram: 04/14/19 0548 04/14/19 0548 Medications Current Medications Acetaminophen (Tylenol Tab) 500 mg Q8 PRN PO pain and temp. more then 99F Last administered on 04/16/19at 20:33; Admin Dose 500 MG; Start 04/14/19 at 00:30 Albuterol (Proventil 0.083% (Neb)) 2.5 mg Q8H RESP THERAPY HHN Last administered on 04/15/19at 15:24; Admin Dose 2.5 MG; Start 04/14/19 at 08:00 Aspirin (Aspirin) 81 mg DAILY PO Last administered on 04/17/19at 08:25; Admin Dose 81 MG; Start 04/14/19 at 09:00 Clopidogrel Bisulfate (plaVIX) 75 mg DAILY PO Last administered on 04/17/19at 08:25; Admin Dose 75 MG; Start 04/14/19 at 09:00 Digoxin (Digoxin) 0.125 mg DAILY@1300 PO Last administered on 04/16/19 12:39; Admin Dose 0.125 MG; Start 04/14/19 at 13:00 Folic Acid (Folic Acid) 1 mg DAILY PO Last administered on 04/16/19 08:29; Admin Dose 1 MG; Start 04/14/19 at 09:00 Albuterol/ Ipratropium (Duoneb) 3 ml Q4H RESP THERAPY PRN HHN SHORTNESS OF BREATH; Start 04/14/19 at 00:30 Isosorbide Mononitrate (Imdur) 30 mg DAILY PO ; Start 04/14/19 at 09:00 Levothyroxine Sodium (Synthroid) 125 mcg BEFORE BREAKFAST PO Last administered on 04/17/19 06:35; Admin Dose 125 MCG; Start 04/14/19 at 07:00 Lorazepam (Ativan) 0.5 mg Q8 PRN PO ANXIETY Last administered on 04/14/19 21:45; Admin Dose 0.5 MG; Start 04/14/19 at 00:30 Magnesium Oxide (Mag-Ox 400) 400 mg DAILY PO Last administered on 04/17/19 08:26; Admin Dose 400 MG; Start 04/14/19 at 09:00 Megestrol Acetate (Megace) 40 mg BID PO Last administered on 04/16/19 20:32; Admin Dose 40 MG; Start 04/14/19 at 00:30 Metoprolol Tartrate (Lopressor) 50 mg BID PO Last administered on 04/15/19 20:06; Admin Dose 50 MG; Start 04/14/19 at 00:30 Ondansetron HCl (Zofran Tab) 4 mg Q6H PRN PO nausea/vomiting Last administered on 04/14/19 21:44; Admin Dose 4 MG; Start 04/14/19 at 00:30 Potassium Chloride (Micro-K) 8 meq DAILY PO Last administered on 04/16/19 08:30; Admin Dose 8 MEQ; Start 04/14/19 at 09:00 Spironolactone (Aldactone) 25 mg DAILY PO Last administered on 04/17/19 08:26; Admin Dose 25 MG; Start 04/14/19 at 09:00 Pantoprazole (Protonix Tab) 40 mg DAILY@06 PO Last administered on 04/17/19 06:35; Admin Dose 40 MG; Start 04/14/19 at 06:00 Fenofibrate (Tricor) 145 mg DAILY PO ; Start 04/14/19 at 09:00 Losartan Potassium (Cozaar) 100 mg DAILY PO ; Start 04/14/19 at 09:00 Acetaminophen (Tylenol Tab) 500 mg Q8 PRN PO MILD PAIN(1-3)OR ELEVATED TEMP Last administered on 04/14/19at 08:56; Admin Dose 500 MG; Start 04/14/19 at 00:30 Morphine Sulfate (morphine) 1 mg Q4H PRN IV SEVERE PAIN LEVEL 7-10 Last administered on 04/14/19at 21:32; Admin Dose 1 MG; Start 04/14/19 at 00:30 Zolpidem Tartrate (Ambien) 10 mg HS PRN PO INSOMNIA Last administered on 04/16/19at 23:25; Admin Dose 10 MG; Start 04/14/19 at 14:30 Furosemide (Lasix) 40 mg BID DIURETICS IV Last administered on 04/17/19at 06:35; Admin Dose 40 MG; Start 04/15/19 at 18:00 Enoxaparin Sodium (Lovenox) 40 mg BID SC Last administered on 04/17/19at 08:33; Admin Dose 40 MG; Start 04/15/19 at 21:00 Levofloxacin (Levaquin) 250 mg DAILY@06 PO Last administered on 04/17/19at 06:35; Admin Dose 250 MG; Start 04/17/19 at 06:00 Assessment/Plan Hospital Course (Demo Recall) IMP: 1. Dyspnea--in a patient with ischemic CMY and HFrEF. Findings most consistent with mild ADHF with associated type II NSTEMI 2. ADHF RECS: 1. Diuresis 2. Afterload reduction as per CV 3. Per cardiology note patient declining further intervention. 4. Encourage out of bed Discharge planning okay from pulmonary standpoint Outpatient pulmonary follow-up [facility] HARRISON [facility] Apr 17, 2019 10:59
[2019-04-17] MEDS: DIGOXIN 0.125 MG TAB PO SCH (13:14)
--- NOTE | 2019-04-17 14:35 | CONS ---
Assessment/Plan Assessment/Plan Hospital Course (Demo Recall) IMP: 1.Nstemi-Had some chest pain and enzymes are downtrending. Jongley type 2 demand infarct. Patient refusing all medications. 2.CHF-systolic acute on chronic EF 20-25% by echo 03/01 jen due to combination of cad and CTX. Lexiscan 03/01 with no sig ischemia/EF 19% 3.Chest pain-currently resolved 4.sob-secondary to CHF 5.dysphagia-patient stating that medications/food geeting stuck in throat 6.Lymphoma-s/p CTX. But per onc note disease is progressive and refractory 7.Dyslipidemia 8.UTI 9. H/O ICD 10. NSVT-recurrent short runs, BUT BB held due to marginal BP 11.MR- now mild by echo 03/01 s/p mitral valve e-clip Recc: -Tele -Continue antiplatelet agents as patient will comply -Contineu gentle lasix diuresis -Continue BBARB(but decrease dose to allow patient to better tolerate)/aldact one/digoxin/imdur as patient will take/comply -Will discuss with family direction of care/cath versus conservative medical therapy with patient currentlty refusing cath that has been offered to her -Continue to trend cardiac enzymes on low dose anticoagulation which has significantly downtrended Consultation Date/Type/Reason Admit Date/Time Apr 13, 2019 at 22:46 Initial Consult Date 04/14/19 Type of Consult Cardiology Reason for Consultation Nstemi Requesting Provider: PEDRO KRUSE MD Date/Time of Note DATE: 04/17/19 TIME: 14:28 Exam/Review of Systems Vital Signs Vitals Vital Signs Date Temp Pulse Resp B/P (MAP) Pulse Ox O2 O2 Flow FiO2 Time Delivery Rate 04/17/19 118 12:29 04/17/19 98.0 16 91/61 (71) 94 11:12 04/15/19 21 15:58 04/15/19 2.0 05:31 04/14/19 Room Air 19:47 Intake and Output 04/16/19 04/16/19 04/17/19 1515:00 23:00 07:00 IntakeIntake Total 850 ml BalanceBalance 850 ml Exam Exam Review of Systems: CONSTITUTIONAL: No fevers, chills. PULMONARY: No sob CARDIOVASCULAR: No chest pain/palpitations GASTROINTESTINAL: No nausea/vomiting. GENITOURINARY: No hematuria/dysuria. MUSCULOSKELETAL: No myagias/arthalgias. PSYCHIATRIC: The patient denies depression. NEUROLOGIC: No weakness Constitutional: alert Psych: no complaints ENMT: mucosa pink and moist Neck: supple, jvd Respiratory: diminished breath sounds (at bases/B) Cardiovascular: regular rate and rhythm Gastrointestinal: soft, non-tender Musculoskeletal: muscle weakness (generalizedf) Extremities: edema (trace/B) 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: other (No focal deficits) Labs Result Diagram: 04/14/19 0548 04/14/19 0548 Medications Medications Current Medications Acetaminophen (Tylenol Tab) 500 mg Q8 PRN PO pain and temp. more then 99F Last administered on 04/16/19 20:33; Admin Dose 500 MG; Start 04/14/19 at 00:30 Albuterol (Proventil 0.083% (Neb)) 2.5 mg Q8H RESP THERAPY HHN Last administered on 04/15/19 15:24; Admin Dose 2.5 MG; Start 04/14/19 at 08:00 Aspirin (Aspirin) 81 mg DAILY PO Last administered on 04/17/19 08:25; Admin Dose 81 MG; Start 04/14/19 at 09:00 Clopidogrel Bisulfate (plaVIX) 75 mg DAILY PO Last administered on 04/17/19 08:25; Admin Dose 75 MG; Start 04/14/19 at 09:00 Digoxin (Digoxin) 0.125 mg DAILY@1300 PO Last administered on 04/17/19 13:14; Admin Dose 0.125 MG; Start 04/14/19 at 13:00 Folic Acid (Folic Acid) 1 mg DAILY PO Last administered on 04/16/19 08:29; Admin Dose 1 MG; Start 04/14/19 at 09:00 Albuterol/ Ipratropium (Duoneb) 3 ml Q4H RESP THERAPY PRN HHN SHORTNESS OF BREATH; Start 04/14/19 at 00:30 Isosorbide Mononitrate (Imdur) 30 mg DAILY PO ; Start 04/14/19 at 09:00 Levothyroxine Sodium (Synthroid) 125 mcg BEFORE BREAKFAST PO Last administered on 04/17/19 06:35; Admin Dose 125 MCG; Start 04/14/19 at 07:00 Lorazepam (Ativan) 0.5 mg Q8 PRN PO ANXIETY Last administered on 04/14/19 21:45; Admin Dose 0.5 MG; Start 04/14/19 at 00:30 Magnesium Oxide (Mag-Ox 400) 400 mg DAILY PO Last administered on 04/17/19 08:26; Admin Dose 400 MG; Start 04/14/19 at 09:00 Megestrol Acetate (Megace) 40 mg BID PO Last administered on 04/16/19 20:32; Admin Dose 40 MG; Start 04/14/19 at 00:30 Metoprolol Tartrate (Lopressor) 50 mg BID PO Last administered on 04/15/19 20:06; Admin Dose 50 MG; Start 04/14/19 at 00:30 Ondansetron HCl (Zofran Tab) 4 mg Q6H PRN PO nausea/vomiting Last administered on 04/14/19 21:44; Admin Dose 4 MG; Start 04/14/19 at 00:30 Potassium Chloride (Micro-K) 8 meq DAILY PO Last administered on 04/16/19 08:30; Admin Dose 8 MEQ; Start 04/14/19 at 09:00 Spironolactone (Aldactone) 25 mg DAILY PO Last administered on 04/17/19 08:26; Admin Dose 25 MG; Start 04/14/19 at 09:00 Pantoprazole (Protonix Tab) 40 mg DAILY@06 PO Last administered on 04/17/19 06:35; Admin Dose 40 MG; Start 04/14/19 at 06:00 Fenofibrate (Tricor) 145 mg DAILY PO ; Start 04/14/19 at 09:00 Losartan Potassium (Cozaar) 100 mg DAILY PO ; Start 04/14/19 at 09:00 Acetaminophen (Tylenol Tab) 500 mg Q8 PRN PO MILD PAIN(1-3)OR ELEVATED TEMP Last administered on 04/14/19 08:56; Admin Dose 500 MG; Start 04/14/19 at 00:30 Morphine Sulfate (morphine) 1 mg Q4H PRN IV SEVERE PAIN LEVEL 7-10 Last administered on 04/14/19 21:32; Admin Dose 1 MG; Start 04/14/19 at 00:30 Zolpidem Tartrate (Ambien) 10 mg HS PRN PO INSOMNIA Last administered on 04/16/19 23:25; Admin Dose 10 MG; Start 04/14/19 at 14:30 Furosemide (Lasix) 40 mg BID DIURETICS IV Last administered on 04/17/19 06:35; Admin Dose 40 MG; Start 04/15/19 at 18:00 Enoxaparin Sodium (Lovenox) 40 mg BID SC Last administered on 04/17/19 08:33; Admin Dose 40 MG; Start 04/15/19 at 21:00 Levofloxacin (Levaquin) 250 mg DAILY@06 PO Last administered on 04/17/19 06:35; Admin Dose 250 MG; Start 04/17/19 at 06:00 ARIEL HOBBS Apr 17, 2019 14:35
--- NOTE | 2019-04-17 15:53 | CONS ---
Assessment/Plan Assessment/Plan Hospital Course (Demo Recall) No events overnight looks comfortable, no fevers Urine culture growing enterococcus species 30,000 colonies Antimicrobials: Levaquin Physical examination well-developed fragile elderly [place] woman who is alert in no distress. Head atraumatic normocephalic neck is supple chest rise symme trical breath sounds clear heart S1-S2 abdomen soft bowel sounds present Assessment: 1. Non-ST elevation RI 2. UTI per urinalysis 3. 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, change antibiotics to amoxicillin give a dose of fosfomycin Consultation Date/Type/Reason Admit Date/Time Apr 13, 2019 at 22:46 Initial Consult Date 04/14/19 Type of Consult id Requesting Provider: PEDRO KRUSE MD Date/Time of Note DATE: 04/17/19 TIME: 15:53 Exam/Review of Systems Exam Vitals Vital Signs Date Temp Pulse Resp B/P (MAP) Pulse Ox O2 O2 Flow FiO2 Time Delivery Rate 04/17/19 97.8 115 16 117/71 97 15:16 (86) 04/15/19 21 15:58 04/15/19 2.0 05:31 04/14/19 Room Air 19:47 Intake and Output 04/16/19 04/16/19 04/17/19 1515:00 23:00 07:00 IntakeIntake Total 850 ml BalanceBalance 850 ml Results Result Diagram: 04/14/19 0548 04/14/19 0548 Medications Medication Current Medications Acetaminophen (Tylenol Tab) 500 mg Q8 PRN PO pain and temp. more then 99F Last administered on 04/16/19at 20:33; Admin Dose 500 MG; Start 04/14/19 at 00:30 Albuterol (Proventil 0.083% (Neb)) 2.5 mg Q8H RESP THERAPY HHN Last administered on 04/15/19at 15:24; Admin Dose 2.5 MG; Start 04/14/19 at 08:00 Aspirin (Aspirin) 81 mg DAILY PO Last administered on 04/17/19at 08:25; Admin Dose 81 MG; Start 04/14/19 at 09:00 Clopidogrel Bisulfate (plaVIX) 75 mg DAILY PO Last administered on 04/17/19at 08:25; Admin Dose 75 MG; Start 04/14/19 at 09:00 Digoxin (Digoxin) 0.125 mg DAILY@1300 PO Last administered on 04/17/19 13:14; Admin Dose 0.125 MG; Start 04/14/19 at 13:00 Folic Acid (Folic Acid) 1 mg DAILY PO Last administered on 04/16/19 08:29; Admin Dose 1 MG; Start 04/14/19 at 09:00 Albuterol/ Ipratropium (Duoneb) 3 ml Q4H RESP THERAPY PRN HHN SHORTNESS OF BREATH; Start 04/14/19 at 00:30 Isosorbide Mononitrate (Imdur) 30 mg DAILY PO ; Start 04/14/19 at 09:00 Levothyroxine Sodium (Synthroid) 125 mcg BEFORE BREAKFAST PO Last administered on 04/17/19 06:35; Admin Dose 125 MCG; Start 04/14/19 at 07:00 Lorazepam (Ativan) 0.5 mg Q8 PRN PO ANXIETY Last administered on 04/14/19 21:45; Admin Dose 0.5 MG; Start 04/14/19 at 00:30 Magnesium Oxide (Mag-Ox 400) 400 mg DAILY PO Last administered on 04/17/19 08:26; Admin Dose 400 MG; Start 04/14/19 at 09:00 Megestrol Acetate (Megace) 40 mg BID PO Last administered on 04/16/19 20:32; Admin Dose 40 MG; Start 04/14/19 at 00:30 Ondansetron HCl (Zofran Tab) 4 mg Q6H PRN PO nausea/vomiting Last administered on 04/14/19 21:44; Admin Dose 4 MG; Start 04/14/19 at 00:30 Potassium Chloride (Micro-K) 8 meq DAILY PO Last administered on 04/16/19 08:30; Admin Dose 8 MEQ; Start 04/14/19 at 09:00 Spironolactone (Aldactone) 25 mg DAILY PO Last administered on 04/17/19 08:26; Admin Dose 25 MG; Start 04/14/19 at 09:00 Pantoprazole (Protonix Tab) 40 mg DAILY@06 PO Last administered on 04/17/19 06:35; Admin Dose 40 MG; Start 04/14/19 at 06:00 Fenofibrate (Tricor) 145 mg DAILY PO ; Start 04/14/19 at 09:00 Acetaminophen (Tylenol Tab) 500 mg Q8 PRN PO MILD PAIN(1-3)OR ELEVATED TEMP Last administered on 04/14/19at 08:56; Admin Dose 500 MG; Start 04/14/19 at 00:30 Morphine Sulfate (morphine) 1 mg Q4H PRN IV SEVERE PAIN LEVEL 7-10 Last administered on 04/14/19at 21:32; Admin Dose 1 MG; Start 04/14/19 at 00:30 Zolpidem Tartrate (Ambien) 10 mg HS PRN PO INSOMNIA Last administered on 04/16/19 at 23:25; Admin Dose 10 MG; Start 04/14/19 at 14:30 Furosemide (Lasix) 40 mg BID DIURETICS IV Last administered on 04/17/19at 06:35; Admin Dose 40 MG; Start 04/15/19 at 18:00 Levofloxacin (Levaquin) 250 mg DAILY@06 PO Last administered on 04/17/19at 06:35; Admin Dose 250 MG; Start 04/17/19 at 06:00 Enoxaparin Sodium (Lovenox) 40 mg DAILY SC ; Start 04/18/19 at 09:00 Losartan Potassium (Cozaar) 50 mg DAILY PO ; Start 04/18/19 at 09:00 Metoprolol Succinate (Toprol Xl) 25 mg BID PO ; Start 04/17/19 at 21:00 CAREMLITA TINSLEY NP Apr 17, 2019 15:53
[2019-04-17] MEDS ORDERED: FOSFOMYCIN 3 GM PACKET PO ONE (17:00)
[2019-04-17] MEDS: morphine 2 MG INJ IV PRN (20:06)
[2019-04-17] MEDS: METOPROLOL (XL) 25 MG TAB PO SCH (21:00)
[2019-04-17] MEDS: LORAZEPAM 0.5 MG TAB PO PRN (22:38)
[2019-04-17] MEDS: AMOXICILLIN 500 MG CAP PO SCH (22:38)
[2019-04-18] VITALS (12 sets, daily range): BP systolic 99–125; BP diastolic 62–87; PULSE 72–112; RESP 17–19
[2019-04-18] MEDS: FUROSEMIDE 40 MG INJ IV SCH ×2 (06:00→17:46)
[2019-04-18] MEDS: AMOXICILLIN 500 MG CAP PO SCH ×3 (06:00→21:17)
[2019-04-18] MEDS: PANTOPRAZOLE (EC) 40 MG TAB PO SCH (06:07)
[2019-04-18] MEDS: LEVOTHYROXINE 125 MCG TAB PO SCH (06:07)
[2019-04-18] MEDS: ALBUTEROL 0.083% (NEB) 2.5 MG/3 ML AMP HHN SCH ×2 (08:00→16:00)
[2019-04-18] MEDS: CLOPIDOGREL 75 MG TAB PO SCH (08:46)
[2019-04-18] MEDS: MEGESTROL 40 MG TAB PO SCH ×2 (08:46→21:00)
[2019-04-18] MEDS: SPIRONOLACTONE 25 MG TAB PO SCH (08:46)
[2019-04-18] MEDS: FENOFIBRATE 145 MG TAB PO SCH (08:47)
[2019-04-18] MEDS: FOLIC ACID 1 MG TAB PO SCH (08:47)
[2019-04-18] MEDS: MAGNESIUM OXIDE 400 MG TAB PO SCH (08:47)
[2019-04-18] MEDS: POTASSIUM CHLORIDE (SR) 8 MEQ CAP PO SCH (08:47)
[2019-04-18] MEDS: METOPROLOL (XL) 25 MG TAB PO SCH (08:48)
[2019-04-18] MEDS: ASPIRIN 81 MG TAB PO SCH (08:48)
[2019-04-18] MEDS: ISOSORBIDE MONONITRATE(SR)30 MG TAB PO SCH (08:48)
[2019-04-18] MEDS: ENOXAPARIN 40 MG/0.4 ML SYG SC SCH (08:57)
[2019-04-18] MEDS ORDERED: LOSARTAN 50 MG TAB PO SCH (09:00)
--- NOTE | 2019-04-18 09:45 | PN ---
Date/Time of Note Date/Time of Note DATE: 04/18/19 TIME: 09:40 Assessment/Plan VTE Prophylaxis Risk score (from Ns)>0 risk: 3 SCD applied (from Ns): No SCD contraindicated: other Pharmacological prophylaxis: LMWH Lines/Catheters IV Catheter Type (from [facility]): [place] [employer] line still needed: No Urinary Cath still in place: No Reason Cath still needed: urinary retention Assessment/Plan Assessment/Plan 1. Severe respiratory distress with worsening of wheezing and inability to sleep. Improvingon. 2.IHD angina, new onset DC by positive troponin series still high. Discussed with Dr. Alvarez. HX of recent PTCA with one stent and 3 balloon dilatation of narrow coronary arteries(; according to the daughter). Status post stapling of mitral valve 6 months ago in [facility] with improvement of condition immediately after the procedure but still she is having frequent hospitalizations. Although it is evident that the cause is not over drinking possibly medication noncompliance. 3. Dysphagia to solids and sometimes to liquids now to everything. Refuses to eat secondary to pain.. Called Dr. matos [phone] for a ENT consultation. 4. Pulmonary edema by x-ray with wheezing on admission, improved after lasix. Ejection fraction is visually estimated at 25-30 %. Improved. 5. History of Hodgkin lymphoma- s/p chemotherapy and hydration 10 days ago. 6. Osteoarthritis with pain syndrome 7. Anxiety disorder. 8. Depression with grief reaction-s/p loss of . 9. Urinary incontinence. 10. Osteoporosis. 11. Kyphosis. 12. Postmenopausal syndrome. 13. Anemia with nl iron. 14. Brain atrophy on CT. 15. Left sphenoid sinusitis on CT. 16. Left ventricular hypertrophy. 17. Urinary incontinence with recurrent UTIs. Now with enterococcus species. 18.Cerebrovascular accident, with left facial drooling, left facial weakness, with slurred speech and dysphagia. Mild left upper extremity weakness. 19. Hypertension, now normotensive.Cardiomegaly on cxr 20. Status post left subclavian area pacemaker implantation about 3 months ago. 21. Status post mitral valve endocardial manipulation with stapling of the valves with good clinical results. 22. Recurrent episodes of V. tach now 8 complexes on a monitor and SVT; placed on the monitor but cardiology consult. 23.Weight loss mainly due to of not eating well. 24.Sleeplessness 25.Poor self expression capacity and getting worse. Talks for minutes but unable to conclude talk or be precise. 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 27. Weight loss 20.Medication noncompliance. Result Diagram: 04/14/1948 04/14/1948 Results 24hrs Laboratory Tests Test 04/18/19 05:50 Creatine Kinase 28 Creatine Kinase Index 2.1 Creatinine Kinase MB (Mass) 0.58 Troponin I 0.215 *H Subjective 24 Hr Interval Summary Free Text/Dictation Discussed with the patient in the presence of the son the necessity of performing coronary angiography. Call with Dr. Alvarez yesterday evening and asking him to plan angiography and possible PTCA because the patient changed her mind she understood the necessity of angiography with the plan of action depending on the results. Patient on an office changing her decisions. After explanation that her heart is weak and current attempts can help to improve the cardiac status convinced her more than the same statement the day earlier. Ini phamyanci she was threatening to leave the hospital. Family is very supportive and they are aware. Cure-all is given to the son Eunice who convinced the mother. Constitutional: diaphoresis, poor po; No no complaints, No improved, No chills, No disoriented, No febrile, No requiring IVF, No requiring O2, No other Eyes: No no complaints, No pain, No discharge, No redness, No visual change, No other ENT: pain, congestion, dysphagia, other (Dysphagia on and off neck and throat pain. Is having a vomiting but has nausea); No no complaints, No bleeding, No discharge, No sore throat Respiratory: cough; No no complaints, No pain, No pleuritic pain, No shortness of breath, No sputum, No wheezing, No other Cardiovascular: edema, lightheadedness, orthopenea, paroxysmal nocturnal dyspnea; No no complaints, No chest pain, No palpitations, No other Gastrointestinal: constipation, decreased appetite, flatus, nausea; No no complaints, No pain, No blood, No diarrhea, No passing stool, No vomiting, No other Genitourinary: dysuria; No no complaints, No bleeding, No discharge, No flank pain, No hematuria, No other Musculoskeletal: back pain, bone/joint pain Skin: rash; No no complaints, No bruising, No erythema, No laceration, No pruritis, No skin lesions, No other Neurologic: dizziness, headache; No no complaints, No confusion, No focal-weakness, No syncope, No seizure, No other Lymphatic: No no complaints, No adenopathy, No tender nodes, No lymphadema, No other Exam/Review of Systems Exam Vitals Vital Signs Date Temp Pulse Resp B/P (MAP) Pulse Ox O2 O2 Flow FiO2 Time Delivery Rate 04/18/19 96 08:00 04/18/19 97.6 18 99/62 (74) 97 07:13 04/17/19 21 23:34 04/15/19 2.0 05:31 04/14/19 Room Air 19:47 Intake and Output 04/17/19 04/17/19 04/18/19 1515:00 23:00 07:00 IntakeIntake Total 400 ml 900 ml BalanceBalance 400 ml 900 ml Constitutional: alert, oriented (Not in time.), well developed, distress, frail, other Psych: anxiety, confusion, depression; No no complaints, No nl mood/affect, No suicidal, No other Head: normocephalic, atraumatic; No lacerations, No hematomas, No other Eyes: EOMI, nl lids, PERRL; No nl conjunctiva, No nl sclera, No icteric, No fundi, disc, No other ENMT: nl external ears & nose; No nl lips & teeth, No nl nasal mucosa & septum, No mucosa pink and moist, No intubated, No tympanic membranes, No other Neck: bruits, thyromegaly, nuchal rigidity; No supple, No non-tender, No jvd, No masses, No other Respiratory: congested cough, crackles/rales, diminished breath sounds; No clear to auscultation, No normal air movement, No intercostal retraction, No labored breathing, No respirations, No tactile fremitus, No wheezing, No other Cardiovascular: regular rate and rhythm, systolic murmur; No nl pulses, No bruits, No diastolic murmur, No edema, No gallop, No irregular rhythm, No jugular venous distention (JVD), No murmurs/extra sounds, No rub, No S3, No S4, No other Gastrointestinal: soft, nl liver, spleen, bowel sounds; No non-tender, No ascites, No distended, No firm, No hepatomegaly, No mass, No rebound or guarding, No splenomegaly, No surgical scars, No tender, No other Musculoskeletal: nl gait and stance, joint tenderness, muscle tone, muscle weakness, range of motion; No nl extremities to inspection, No spine non-tender, No swelling, No other Extremities: No normal pulses, No calf tenderness, No cyanosis, No clubbing, No edema, No pitting pedal edema, No palpable cord, No tenderness, No other 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: HVAC/R INSTRUCTOR II-XII intact, numbness; No nl mental status, No nl speech, No nl strength, No confused, No DTR's symmetric, No focal weakness, No lethargic, No reflexes, No unresponsive, No other Skin: nl turgor; No rash or lesions, No diaphoresis, No ecchymosis, No laceration, No puncture, No other Results Results 24hrs Laboratory Tests Test 04/18/19 05:50 Creatine Kinase 28 Creatine Kinase Index 2.1 Creatinine Kinase MB (Mass) 0.58 Troponin I 0.215 *H Medications Medication Current Medications Acetaminophen (Tylenol Tab) 500 mg Q8 PRN PO pain and temp. more then 99F Last administered on 04/16/19 20:33; Admin Dose 500 MG; Start 04/14/19 at 00:30 Albuterol (Proventil 0.083% (Neb)) 2.5 mg Q8H RESP THERAPY HHN Last administered on 04/15/19 15:24; Admin Dose 2.5 MG; Start 04/14/19 at 08:00 Aspirin (Aspirin) 81 mg DAILY PO Last administered on 04/18/19 08:48; Admin Dose 81 MG; Start 04/14/19 at 09:00 Clopidogrel Bisulfate (plaVIX) 75 mg DAILY PO Last administered on 04/18/19 08:46; Admin Dose 75 MG; Start 04/14/19 at 09:00 Digoxin (Digoxin) 0.125 mg DAILY@1300 PO Last administered on 04/17/19 13:14; Admin Dose 0.125 MG; Start 04/14/19 at 13:00 Folic Acid (Folic Acid) 1 mg DAILY PO Last administered on 04/18/19 08:47; Admin Dose 1 MG; Start 04/14/19 at 09:00 Albuterol/ Ipratropium (Duoneb) 3 ml Q4H RESP THERAPY PRN HHN SHORTNESS OF BREATH; Start 04/14/19 at 00:30 Isosorbide Mononitrate (Imdur) 30 mg DAILY PO ; Start 04/14/19 at 09:00 Levothyroxine Sodium (Synthroid) 125 mcg BEFORE BREAKFAST PO Last administered on 04/18/19 06:07; Admin Dose 125 MCG; Start 04/14/19 at 07:00 Lorazepam (Ativan) 0.5 mg Q8 PRN PO ANXIETY Last administered on 04/17/19 22:38; Admin Dose 0.5 MG; Start 04/14/19 at 00:30 Magnesium Oxide (Mag-Ox 400) 400 mg DAILY PO Last administered on 04/18/19 08:47; Admin Dose 400 MG; Start 04/14/19 at 09:00 Megestrol Acetate (Megace) 40 mg BID PO Last administered on 04/18/19 08:46; Admin Dose 40 MG; Start 04/14/19 at 00:30 Ondansetron HCl (Zofran Tab) 4 mg Q6H PRN PO nausea/vomiting Last administered on 04/14/19 21:44; Admin Dose 4 MG; Start 04/14/19 at 00:30 Potassium Chloride (Micro-K) 8 meq DAILY PO Last administered on 04/18/19 08:47; Admin Dose 8 MEQ; Start 04/14/19 at 09:00 Spironolactone (Aldactone) 25 mg DAILY PO Last administered on 04/18/19 08:46; Admin Dose 25 MG; Start 04/14/19 at 09:00 Pantoprazole (Protonix Tab) 40 mg DAILY@06 PO Last administered on 04/18/19 06:07; Admin Dose 40 MG; Start 04/14/19 at 06:00 Fenofibrate (Tricor) 145 mg DAILY PO Last administered on 04/18/19 08:47; Admin Dose 145 MG; Start 04/14/19 at 09:00 Acetaminophen (Tylenol Tab) 500 mg Q8 PRN PO MILD PAIN(1-3)OR ELEVATED TEMP Last administered on 04/14/19 08:56; Admin Dose 500 MG; Start 04/14/19 at 00:30 Morphine Sulfate (morphine) 1 mg Q4H PRN IV SEVERE PAIN LEVEL 7-10 Last admi nistered on 04/17/19at 20:06; Admin Dose 1 MG; Start 04/14/19 at 00:30 Zolpidem Tartrate (Ambien) 10 mg HS PRN PO INSOMNIA Last administered on 04/16/19at 23:25; Admin Dose 10 MG; Start 04/14/19 at 14:30 Furosemide (Lasix) 40 mg BID DIURETICS IV Last administered on 04/17/19at 17:51; Admin Dose 40 MG; Start 04/15/19 at 18:00 Enoxaparin Sodium (Lovenox) 40 mg DAILY SC Last administered on 04/18/19at 08:57; Admin Dose 40 MG; Start 04/18/19 at 09:00 Losartan Potassium (Cozaar) 50 mg DAILY PO ; Start 04/18/19 at 09:00 Metoprolol Succinate (Toprol Xl) 25 mg BID PO ; Start 04/17/19 at 21:00 Amoxicillin (Amoxicillin) 500 mg Q8 PO Last administered on 04/17/19at 22:38; Admin Dose 500 MG; Start 04/17/19 at 22:00; Stop 04/20/19 at 22:00 PEDRO KRUSE MD Apr 18, 2019 09:45
--- NOTE | 2019-04-18 11:18 | CONS ---
Assessment/Plan Assessment/Plan Assessment/Plan (Daily) Assessment and recommendations; 1. Patient admitted for hypoxemia due to CHF exacerbation with interval improvement. 2. History of cardiac arrhythmia. 3. History of pacemaker placement. 4. Likely some element of pulmonary fibrosis as well. 5. Anemia. Continue current supportive care. Assess for home oxygen. Consultation Date/Type/Reason Admit Date/Time Apr 13, 2019 at 22:46 Initial Consult Date 04/14/19 Type of Consult Pulmonary Patient's condition is fairly stable. Remains awake and alert. Doing very well on 2 L nasal cannula. Denies any chest pain, shortness of breath, coughing, wheezing. General exam; elderly woman, awake alert, sitting on the edge of the bed. Currently in no distress. Reason for Consultation H EENT exam; supple neck, positive JVD. No lymphadenopathy. Midline trachea. No thyromegaly. No neck masses. Patient is edentulous. Chest exam; diminished but clear breath sounds. S1-S2 audible, no murmurs. Abdomen exam; soft, nontender. No organomegaly. Bowel sounds audible. Extremity exam; peripheral edema clubbing. [employer] exam; no focal deficit. Requesting Provider: PEDRO KRUSE MD Date/Time of Note DATE: 04/18/19 TIME: 11:16 Exam/Review of Systems Exam Vitals Vital Signs Date Temp Pulse Resp B/P (MAP) Pulse Ox O2 O2 Flow FiO2 Time Delivery Rate 04/18/19 98.0 72 18 122/87 99 11:04 (99) 04/17/19 21 23:34 04/15/19 2.0 05:31 04/14/19 Room Air 19:47 Intake and Output 04/17/19 04/17/19 04/18/19 1515:00 23:00 07:00 IntakeIntake Total 400 ml 900 ml BalanceBalance 400 ml 900 ml Results Result Diagram: 04/14/19 0548 04/14/19 0548 Results 24hrs Laboratory Tests Test 04/18/19 05:50 Creatine Kinase 28 Creatine Kinase Index 2.1 Creatinine Kinase MB (Mass) 0.58 Troponin I 0.215 *H Medications Medication Current Medications Acetaminophen (Tylenol Tab) 500 mg Q8 PRN PO pain and temp. more then 99F Last administered on 04/16/19at 20:33; Admin Dose 500 MG; Start 04/14/19 at 00:30 Albuterol (Proventil 0.083% (Neb)) 2.5 mg Q8H RESP THERAPY HHN Last administ ered on 04/15/19 15:24; Admin Dose 2.5 MG; Start 04/14/19 at 08:00 Aspirin (Aspirin) 81 mg DAILY PO Last administered on 04/18/19 08:48; Admin Dose 81 MG; Start 04/14/19 at 09:00 Clopidogrel Bisulfate (plaVIX) 75 mg DAILY PO Last administered on 04/18/19 08:46; Admin Dose 75 MG; Start 04/14/19 at 09:00 Digoxin (Digoxin) 0.125 mg DAILY@1300 PO Last administered on 04/17/19 13:14; Admin Dose 0.125 MG; Start 04/14/19 at 13:00 Folic Acid (Folic Acid) 1 mg DAILY PO Last administered on 04/18/19 08:47; Admin Dose 1 MG; Start 04/14/19 at 09:00 Albuterol/ Ipratropium (Duoneb) 3 ml Q4H RESP THERAPY PRN HHN SHORTNESS OF BREATH; Start 04/14/19 at 00:30 Isosorbide Mononitrate (Imdur) 30 mg DAILY PO ; Start 04/14/19 at 09:00 Levothyroxine Sodium (Synthroid) 125 mcg BEFORE BREAKFAST PO Last administered on 04/18/19 06:07; Admin Dose 125 MCG; Start 04/14/19 at 07:00 Lorazepam (Ativan) 0.5 mg Q8 PRN PO ANXIETY Last administered on 04/17/19 22:38; Admin Dose 0.5 MG; Start 04/14/19 at 00:30 Magnesium Oxide (Mag-Ox 400) 400 mg DAILY PO Last administered on 04/18/19 08:47; Admin Dose 400 MG; Start 04/14/19 at 09:00 Megestrol Acetate (Megace) 40 mg BID PO Last administered on 04/18/19 08:46; Admin Dose 40 MG; Start 04/14/19 at 00:30 Ondansetron HCl (Zofran Tab) 4 mg Q6H PRN PO nausea/vomiting Last administered on 04/14/19 21:44; Admin Dose 4 MG; Start 04/14/19 at 00:30 Potassium Chloride (Micro-K) 8 meq DAILY PO Last administered on 04/18/19 08:47; Admin Dose 8 MEQ; Start 04/14/19 at 09:00 Spironolactone (Aldactone) 25 mg DAILY PO Last administered on 04/18/19 08:46; Admin Dose 25 MG; Start 04/14/19 at 09:00 Pantoprazole (Protonix Tab) 40 mg DAILY@06 PO Last administered on 04/18/19 06:07; Admin Dose 40 MG; Start 04/14/19 at 06:00 Fenofibrate (Tricor) 145 mg DAILY PO Last administered on 04/18/19 08:47; Admin Dose 145 MG; Start 04/14/19 at 09:00 Acetaminophen (Tylenol Tab) 500 mg Q8 PRN PO MILD PAIN(1-3)OR ELEVATED TEMP Last administered on 04/14/19 08:56; Admin Dose 500 MG; Start 04/14/19 at 00:30 Morphine Sulfate (morphine) 1 mg Q4H PRN IV SEVERE PAIN LEVEL 7-10 Last administered on 04/17/19 20:06; Admin Dose 1 MG; Start 04/14/19 at 00:30 Zolpidem Tartrate (Ambien) 10 mg HS PRN PO INSOMNIA Last administered on 04/16/19 23:25; Admin Dose 10 MG; Start 04/14/19 at 14:30 Furosemide (Lasix) 40 mg BID DIURETICS IV Last administered on 04/17/19 17:51; Admin Dose 40 MG; Start 04/15/19 at 18:00 Enoxaparin Sodium (Lovenox) 40 mg DAILY SC Last administered on 04/18/19 08:57; Admin Dose 40 MG; Start 04/18/19 at 09:00 Losartan Potassium (Cozaar) 50 mg DAILY PO ; Start 04/18/19 at 09:00 Metoprolol Succinate (Toprol Xl) 25 mg BID PO ; Start 04/17/19 at 21:00 Amoxicillin (Amoxicillin) 500 mg Q8 PO Last administered on 04/17/19 22:38; Admin Dose 500 MG; Start 04/17/19 at 22:00; Stop 04/20/19 at 22:00 JAZZMINE BILL Apr 18, 2019 11:18
[2019-04-18] MEDS: DIGOXIN 0.125 MG TAB PO SCH (12:37)
--- NOTE | 2019-04-18 13:32 | CONS ---
Assessment/Plan Assessment/Plan Hospital Course (Demo Recall) IMP: 1.Nstemi-Had some chest pain and enzymes are downtrending. Jongley type 2 demand infarct. Patient refusing all medications. 2.CHF-systolic acute on chronic EF 20-25% by echo 03/01 jen due to combination of cad and CTX. Lexiscan 03/01 with no sig ischemia/EF 19% 3.Chest pain-currently resolved 4.sob-secondary to CHF 5.dysphagia-patient stating that medications/food geeting stuck in throat 6.Lymphoma-s/p CTX. But per onc note disease is progressive and refractory 7.Dyslipidemia 8.UTI 9. H/O ICD 10. NSVT-recurrent short runs, BUT BB held due to marginal BP 11.MR- now mild by echo 03/01 s/p mitral valve e-clip Recc: -Tele -Continue antiplatelet agents as patient will comply -Contineu gentle lasix diuresis -Continue BB/ARB(s/p decrsaed yesterday)aldactone/digoxin/imdur as patient will take/comply -Continue to trend cardiac enzymes on low dose anticoagulation which has significantly downtrended -Patient now agreeable to cath and scheduled fo tomorrow Consultation Date/Type/Reason Admit Date/Time Apr 13, 2019 at 22:46 Initial Consult Date 04/14/19 Type of Consult Cardiology Reason for Consultation ICD Requesting Provider: PEDRO KRUSE MD Date/Time of Note DATE: 04/18/19 TIME: 13:27 Exam/Review of Systems Vital Signs Vitals Vital Signs Date Temp Pulse Resp B/P (MAP) Pulse Ox O2 O2 Flow FiO2 Time Delivery Rate 04/18/19 101 12:00 04/18/19 98.0 18 122/87 99 11:04 (99) 04/17/19 21 23:34 04/15/19 2.0 05:31 04/14/19 Room Air 19:47 Intake and Output 04/17/19 04/17/19 04/18/19 1515:00 23:00 07:00 IntakeIntake Total 400 ml 900 ml BalanceBalance 400 ml 900 ml Exam Exam Review of Systems: CONSTITUTIONAL: No fevers, chills. PULMONARY: No sob CARDIOVASCULAR: No chest pain/palpitations GASTROINTESTINAL: No nausea/vomiting. GENITOURINARY: No hematuria/dysuria. MUSCULOSKELETAL: No myagias/arthalgias. PSYCHIATRIC: The patient denies depression. NEUROLOGIC: No weakness Constitutional: alert Psych: no complaints Head: normocephalic ENMT: mucosa pink and moist Neck: supple, jvd (9 cm water) Respiratory: diminished breath sounds Cardiovascular: regular rate and rhythm Gastrointestinal: soft, non-tender Musculoskeletal: muscle tone Extremities: edema (none) 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: other (No focal deficits) Labs Result Diagram: 04/14/1954704/14/1948 Results 24hrs Laboratory Tests Test 04/18/19 05:50 Creatine Kinase 28 Creatine Kinase Index 2.1 Creatinine Kinase MB (Mass) 0.58 Troponin I 0.215 *H Medications Medications Current Medications Acetaminophen (Tylenol Tab) 500 mg Q8 PRN PO pain and temp. more then 99F Last administered on 04/16/19 20:33; Admin Dose 500 MG; Start 04/14/19 at 00:30 Albuterol (Proventil 0.083% (Neb)) 2.5 mg Q8H RESP THERAPY HHN Last administered on 04/15/19 15:24; Admin Dose 2.5 MG; Start 04/14/19 at 08:00 Aspirin (Aspirin) 81 mg DAILY PO Last administered on 04/18/19 08:48; Admin Dose 81 MG; Start 04/14/19 at 09:00 Clopidogrel Bisulfate (plaVIX) 75 mg DAILY PO Last administered on 04/18/19 08:46; Admin Dose 75 MG; Start 04/14/19 at 09:00 Digoxin (Digoxin) 0.125 mg DAILY@1300 PO Last administered on 04/18/19 12:37; Admin Dose 0.125 MG; Start 04/14/19 at 13:00 Folic Acid (Folic Acid) 1 mg DAILY PO Last administered on 04/18/19 08:47; Admin Dose 1 MG; Start 04/14/19 at 09:00 Albuterol/ Ipratropium (Duoneb) 3 ml Q4H RESP THERAPY PRN HHN SHORTNESS OF BREATH; Start 04/14/19 at 00:30 Isosorbide Mononitrate (Imdur) 30 mg DAILY PO ; Start 04/14/19 at 09:00 Levothyroxine Sodium (Synthroid) 125 mcg BEFORE BREAKFAST PO Last administered on 04/18/19 06:07; Admin Dose 125 MCG; Start 04/14/19 at 07:00 Lorazepam (Ativan) 0.5 mg Q8 PRN PO ANXIETY Last administered on 04/17/19 22:38; Admin Dose 0.5 MG; Start 04/14/19 at 00:30 Magnesium Oxide (Mag-Ox 400) 400 mg DAILY PO Last administered on 04/18/19 08:47; Admin Dose 400 MG; Start 04/14/19 at 09:00 Megestrol Acetate (Megace) 40 mg BID PO Last administered on 04/18/19 08:46; Admin Dose 40 MG; Start 04/14/19 at 00:30 Ondansetron HCl (Zofran Tab) 4 mg Q6H PRN PO nausea/vomiting Last administered on 04/14/19 21:44; Admin Dose 4 MG; Start 04/14/19 at 00:30 Potassium Chloride (Micro-K) 8 meq DAILY PO Last administered on 04/18/19 08:47; Admin Dose 8 MEQ; Start 04/14/19 at 09:00 Spironolactone (Aldactone) 25 mg DAILY PO Last administered on 04/18/19 08:46; Admin Dose 25 MG; Start 04/14/19 at 09:00 Pantoprazole (Protonix Tab) 40 mg DAILY@06 PO Last administered on 04/18/19 06:07; Admin Dose 40 MG; Start 04/14/19 at 06:00 Fenofibrate (Tricor) 145 mg DAILY PO Last administered on 04/18/19 08:47; Admin Dose 145 MG; Start 04/14/19 at 09:00 Acetaminophen (Tylenol Tab) 500 mg Q8 PRN PO MILD PAIN(1-3)OR ELEVATED TEMP Last administered on 04/14/19 08:56; Admin Dose 500 MG; Start 04/14/19 at 00:30 Morphine Sulfate (morphine) 1 mg Q4H PRN IV SEVERE PAIN LEVEL 7-10 Last administered on 04/17/19 20:06; Admin Dose 1 MG; Start 04/14/19 at 00:30 Zolpidem Tartrate (Ambien) 10 mg HS PRN PO INSOMNIA Last administered on 04/16/19 23:25; Admin Dose 10 MG; Start 04/14/19 at 14:30 Furosemide (Lasix) 40 mg BID DIURETICS IV Last administered on 04/17/19at 17:51; Admin Dose 40 MG; Start 04/15/19 at 18:00 Enoxaparin Sodium (Lovenox) 40 mg DAILY SC Last administered on 04/18/19at 08:57; Admin Dose 40 MG; Start 04/18/19 at 09:00 Losartan Potassium (Cozaar) 50 mg DAILY PO ; Start 04/18/19 at 09:00 Metoprolol Succinate (Toprol Xl) 25 mg BID PO ; Start 04/17/19 at 21:00 Amoxicillin (Amoxicillin) 500 mg Q8 PO Last administered on 04/17/19at 22:38; Admin Dose 500 MG; Start 04/17/19 at 22:00; Stop 04/20/19 at 22:00 ARIEL HOBBS Apr 18, 2019 13:32
--- NOTE | 2019-04-18 15:09 | CONS ---
Assessment/Plan Assessment/Plan Hospital Course (Demo Recall) No events overnight Urine culture growing enterococcus species 30,000 colonies Antimicrobials: Amoxicillin Physical examination well-developed fragile elderly [place] woman who is alert in no distress. Head atraumatic normocephalic neck is supple chest rise symmetrical breath sounds clear heart S1-S2 abdomen soft bowel sounds present Assessment: 1. Non-ST elevation PA 2. UTI per urinalysis 3. 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, continue present care Consultation Date/Type/Reason Admit Date/Time Apr 13, 2019 at 22:46 Initial Consult Date 04/14/19 Type of Consult id Requesting Provider: PEDRO KRUSE MD Date/Time of Note DATE: 04/18/19 TIME: 15:08 Exam/Review of Systems Exam Vitals Vital Signs Date Temp Pulse Resp B/P (MAP) Pulse Ox O2 O2 Flow FiO2 Time Delivery Rate 04/18/19 101 12:00 04/18/19 98.0 18 122/87 99 11:04 (99) 04/17/19 21 23:34 04/15/19 2.0 05:31 04/14/19 Room Air 19:47 Intake and Output 04/17/19 04/17/19 04/18/19 1515:00 23:00 07:00 IntakeIntake Total 400 ml 900 ml BalanceBalance 400 ml 900 ml Results Result Diagram: 04/14/19 0548 04/14/19 0548 Results 24hrs Laboratory Tests Test 04/18/19 05:50 Creatine Kinase 28 Creatine Kinase Index 2.1 Creatinine Kinase MB (Mass) 0.58 Troponin I 0.215 *H Medications Medication Current Medications Acetaminophen (Tylenol Tab) 500 mg Q8 PRN PO pain and temp. more then 99F Last administered on 04/16/19at 20:33; Admin Dose 500 MG; Start 04/14/19 at 00:30 Albuterol (Proventil 0.083% (Neb)) 2.5 mg Q8H RESP THERAPY HHN Last adminis tered on 04/15/19at 15:24; Admin Dose 2.5 MG; Start 04/14/19 at 08:00 Aspirin (Aspirin) 81 mg DAILY PO Last administered on 04/18/19at 08:48; Admin Dose 81 MG; Start 04/14/19 at 09:00 Clopidogrel Bisulfate (plaVIX) 75 mg DAILY PO Last administered on 04/18/19 08:46; Admin Dose 75 MG; Start 04/14/19 at 09:00 Digoxin (Digoxin) 0.125 mg DAILY@1300 PO Last administered on 04/18/19 12:37; Admin Dose 0.125 MG; Start 04/14/19 at 13:00 Folic Acid (Folic Acid) 1 mg DAILY PO Last administered on 04/18/19 08:47; Admin Dose 1 MG; Start 04/14/19 at 09:00 Albuterol/ Ipratropium (Duoneb) 3 ml Q4H RESP THERAPY PRN HHN SHORTNESS OF BREATH; Start 04/14/19 at 00:30 Isosorbide Mononitrate (Imdur) 30 mg DAILY PO ; Start 04/14/19 at 09:00 Levothyroxine Sodium (Synthroid) 125 mcg BEFORE BREAKFAST PO Last administered on 04/18/19 06:07; Admin Dose 125 MCG; Start 04/14/19 at 07:00 Lorazepam (Ativan) 0.5 mg Q8 PRN PO ANXIETY Last administered on 04/17/19 22:38; Admin Dose 0.5 MG; Start 04/14/19 at 00:30 Magnesium Oxide (Mag-Ox 400) 400 mg DAILY PO Last administered on 04/18/19 08:47; Admin Dose 400 MG; Start 04/14/19 at 09:00 Megestrol Acetate (Megace) 40 mg BID PO Last administered on 04/18/19 08:46; Admin Dose 40 MG; Start 04/14/19 at 00:30 Ondansetron HCl (Zofran Tab) 4 mg Q6H PRN PO nausea/vomiting Last administered on 04/14/19 21:44; Admin Dose 4 MG; Start 04/14/19 at 00:30 Potassium Chloride (Micro-K) 8 meq DAILY PO Last administered on 04/18/19 08:47; Admin Dose 8 MEQ; Start 04/14/19 at 09:00 Spironolactone (Aldactone) 25 mg DAILY PO Last administered on 04/18/19 08:46; Admin Dose 25 MG; Start 04/14/19 at 09:00 Pantoprazole (Protonix Tab) 40 mg DAILY@06 PO Last administered on 04/18/19 06:07; Admin Dose 40 MG; Start 04/14/19 at 06:00 Fenofibrate (Tricor) 145 mg DAILY PO Last administered on 04/18/19 08:47; Admin Dose 145 MG; Start 04/14/19 at 09:00 Acetaminophen (Tylenol Tab) 500 mg Q8 PRN PO MILD PAIN(1-3)OR ELEVATED TEMP Last administered on 04/14/19 08:56; Admin Dose 500 MG; Start 04/14/19 at 00:30 Morphine Sulfate (morphine) 1 mg Q4H PRN IV SEVERE PAIN LEVEL 7-10 Last administered on 04/17/19 20:06; Admin Dose 1 MG; Start 04/14/19 at 00:30 Zolpidem Tartrate (Ambien) 10 mg HS PRN PO INSOMNIA Last administered on 04/16/19 23:25; Admin Dose 10 MG; Start 04/14/19 at 14:30 Furosemide (Lasix) 40 mg BID DIURETICS IV Last administered on 04/17/19 17:51; Admin Dose 40 MG; Start 04/15/19 at 18:00 Enoxaparin Sodium (Lovenox) 40 mg DAILY SC Last administered on 04/18/19 08:57; Admin Dose 40 MG; Start 04/18/19 at 09:00 Losartan Potassium (Cozaar) 50 mg DAILY PO ; Start 04/18/19 at 09:00 Amoxicillin (Amoxicillin) 500 mg Q8 PO Last administered on 04/17/19at 22:38; Admin Dose 500 MG; Start 04/17/19 at 22:00; Stop 04/20/19 at 22:00 Metoprolol Succinate (Toprol Xl) 25 mg DAILY PO ; Start 04/19/19 at 09:00 Diazepam (Valium) 2.5 mg OC ONCE PO ; Start 04/19/19 at 10:00; Stop 04/19/19 at 10:01 Diphenhydramine HCl (Benadryl) 50 mg OC ONCE PO ; Start 04/19/19 at 10:00; Stop 04/19/19 at 10:01 CARMELITA TINSLEY NP Apr 18, 2019 15:09
[2019-04-18] MEDS: ACETAMINOPHEN 500 MG TAB PO PRN (15:14)
[2019-04-18] MEDS ORDERED: LIDOCAINE 5% PATCH TD ONE (21:30)
[2019-04-19] VITALS (20 sets, daily range): BP systolic 94–149; BP diastolic 45–118; PULSE 84–108; RESP 17–20
[2019-04-19] MEDS: ALBUTEROL 0.083% (NEB) 2.5 MG/3 ML AMP HHN SCH (00:14)
[2019-04-19] MEDS: AMOXICILLIN 500 MG CAP PO SCH ×3 (05:48→22:00)
[2019-04-19] MEDS: PANTOPRAZOLE (EC) 40 MG TAB PO SCH (05:48)
[2019-04-19] MEDS: FUROSEMIDE 40 MG INJ IV SCH ×2 (05:49→18:30)
[2019-04-19] MEDS: LEVOTHYROXINE 125 MCG TAB PO SCH (05:51)
[2019-04-19] MEDS ORDERED: DIAZEPAM 5 MG TAB PO ONE (10:00)
[2019-04-19] MEDS ORDERED: DIPHENHYDRAMINE 50 MG CAP PO ONE (10:00)
[2019-04-19] MEDS ORDERED: IODIXANOL LOCM 100 ML BTL ONE (10:07)
[2019-04-19] MEDS ORDERED: LIDOCAINE 1% (MDV) 20 ML INJ ONE (10:07)
[2019-04-19] MEDS ORDERED: HEPARIN 1000 UNITS/ML 10 ML INJ ONE (10:07)
[2019-04-19] MEDS ORDERED: MIDAZOLAM 1 MG/ML 2 ML INJ ONE (10:08)
[2019-04-19] MEDS ORDERED: VERAPAMIL 5 MG INJ ONE (10:08)
[2019-04-19] MEDS ORDERED: NITROGLYCERIN (IC) 100 MCG/ML INJ ONE (10:08)
[2019-04-19] MEDS ORDERED: FENTAnyl 50 MCG/ML VIAL ONE (10:08)
[2019-04-19] MEDS ORDERED: SOD CHLORIDE 0.9% 500 ML ONE (10:23)
--- NOTE | 2019-04-19 11:44 | CONS ---
Assessment/Plan Assessment/Plan Hospital Course (Demo Recall) IMP: 1.Nstemi-Had some chest pain and enzymes are downtrending. [place]ley type 2 demand infarct. Patient refusing all medications. 2.CHF-systolic acute on chronic EF 20-25% by echo 03/01 jen due to combination of cad and CTX. Lexiscan 03/01 with no sig ischemia/EF 19% 3.Chest pain-currently resolved 4.sob-secondary to CHF 5.dysphagia-patient stating that medications/food geeting stuck in throat 6.Lymphoma-s/p CTX. But per onc note disease is progressive and refractory 7.Dyslipidemia 8.UTI 9. H/O ICD 10. NSVT-recurrent short runs, BUT BB held due to marginal BP 11.MR- now mild by echo 03/01 s/p mitral valve e-clip Recc: -Tele -Continue antiplatelet agents as patient will comply -Contineu gentle lasix diuresis -Continue BB/ARB(both doses decreased to allow patient to tolerate)aldactone/ digoxin/imdur as patient will take/comply -Continue to trend cardiac enzymes on low dose anticoagulation which has significantly downtrended -[facility] with possible PTCA/stent today Consultation Date/Type/Reason Admit Date/Time Apr 13, 2019 at 22:46 Initial Consult Date 04/14/19 Type of Consult Cardiology Reason for Consultation NSTEMI Requesting Provider: PEDRO KRUSE MD Date/Time of Note DATE: 04/19/19 TIME: 11:40 Exam/Review of Systems Vital Signs Vitals Vital Signs Date Temp Pulse Resp B/P (MAP) Pulse Ox O2 O2 Flow FiO2 Time Delivery Rate 04/19/19 98.0 95 18 115/71 97 08:34 (86) 04/19/19 21 00:15 Intake and Output 04/18/19 04/18/19 04/19/19 1515:00 23:00 07:00 IntakeIntake Total 300 ml 650 ml BalanceBalance 300 ml 650 ml Exam Exam Review of Systems: CONSTITUTIONAL: No fevers, chills. PULMONARY:mild sob CARDIOVASCULAR: No chest pain/palpitations GASTROINTESTINAL: No nausea/vomiting. GENITOURINARY: No hematuria/dysuria. MUSCULOSKELETAL: No myagias/arthalgias. PSYCHIATRIC: The patient denies depression. NEUROLOGIC: generalized weakness Constitutional: alert Psych: no complaints Head: normocephalic ENMT: mucosa pink and moist Neck: jvd (9 cm water) Respiratory: diminished breath sounds (at bases/B) Cardiovascular: regular rate and rhythm Gastrointestinal: soft, non-tender Musculoskeletal: muscle tone (normal) Extremities: edema (none) 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: other (No focal deficits) Labs Result Diagram: 04/19/19 0748 04/19/19 0748 Results 24hrs Laboratory Tests Test 04/19/19 07:48 White Blood Count 6.4 Red Blood Count 5.10 # Hemoglobin 13.4 Hematocrit 43.8 Mean Corpuscular Volume 85.9 Mean Corpuscular Hemoglobin 26.3 L Mean Corpuscular Hemoglobin Concent 30.6 L Red Cell Distribution Width 17.0 H Platelet Count 229 Mean Platelet Volume 11.6 H Immature Granulocytes % 0.200 Neutrophils % 72.7 Lymphocytes % 15.6 Monocytes % 10.3 Eosinophils % 0.9 Basophils % 0.3 Nucleated Red Blood Cells % 0.0 Immature Granulocytes # 0.010 Neutrophils # 4.7 Lymphocytes # 1.0 Monocytes # 0.7 Eosinophils # 0.1 Basophils # 0.0 Nucleated Red Blood Cells # 0.0 Prothrombin Time 12.4 Prothrombin Time Ratio 1.0 INR International Normalized Ratio 0.91 Sodium Level 142 Potassium Level 4.1 Chloride Level 103 Carbon Dioxide Level 28 Anion Gap 11 Blood Urea Nitrogen 17 Creatinine 0.76 Est Glomerular Filtrat Rate mL/min Glucose Level 108 Calcium Level 9.7 Medications Medications Current Medications Acetaminophen (Tylenol Tab) 500 mg Q8 PRN PO pain and temp. more then 99F Last administered on 04/18/19at 15:14; Admin Dose 500 MG; Start 04/14/19 at 00:30 Albuterol (Proventil 0.083% (Neb)) 2.5 mg Q8H RESP THERAPY HHN Last administered on 04/19/19at 00:14; Admin Dose 2.5 MG; Start 04/14/19 at 08:00 Aspirin (Aspirin) 81 mg DAILY PO Last administered on 04/18/19at 08:48; Admin Dose 81 MG; Start 04/14/19 at 09:00 Clopidogrel Bisulfate (plaVIX) 75 mg DAILY PO Last administered on 04/18/19at 08:46; Admin Dose 75 MG; Start 04/14/19 at 09:00 Digoxin (Digoxin) 0.125 mg DAILY@1300 PO Last administered on 04/18/19 12:37; Admin Dose 0.125 MG; Start 04/14/19 at 13:00 Folic Acid (Folic Acid) 1 mg DAILY PO Last administered on 04/18/19 08:47; Admin Dose 1 MG; Start 04/14/19 at 09:00 Albuterol/ Ipratropium (Duoneb) 3 ml Q4H RESP THERAPY PRN HHN SHORTNESS OF BREATH; Start 04/14/19 at 00:30 Isosorbide Mononitrate (Imdur) 30 mg DAILY PO ; Start 04/14/19 at 09:00 Levothyroxine Sodium (Synthroid) 125 mcg BEFORE BREAKFAST PO Last administered on 04/19/19 05:51; Admin Dose 125 MCG; Start 04/14/19 at 07:00 Lorazepam (Ativan) 0.5 mg Q8 PRN PO ANXIETY Last administered on 04/17/19 22:38; Admin Dose 0.5 MG; Start 04/14/19 at 00:30 Magnesium Oxide (Mag-Ox 400) 400 mg DAILY PO Last administered on 04/18/19 08:47; Admin Dose 400 MG; Start 04/14/19 at 09:00 Megestrol Acetate (Megace) 40 mg BID PO Last administered on 04/18/19 08:46; Admin Dose 40 MG; Start 04/14/19 at 00:30 Ondansetron HCl (Zofran Tab) 4 mg Q6H PRN PO nausea/vomiting Last administered on 04/14/19 21:44; Admin Dose 4 MG; Start 04/14/19 at 00:30 Potassium Chloride (Micro-K) 8 meq DAILY PO Last administered on 04/18/19 08:47; Admin Dose 8 MEQ; Start 04/14/19 at 09:00 Spironolactone (Aldactone) 25 mg DAILY PO Last administered on 04/18/19 08:46; Admin Dose 25 MG; Start 04/14/19 at 09:00 Pantoprazole (Protonix Tab) 40 mg DAILY@06 PO Last administered on 04/19/19 05:48; Admin Dose 40 MG; Start 04/14/19 at 06:00 Fenofibrate (Tricor) 145 mg DAILY PO Last administered on 04/18/19 08:47; Admin Dose 145 MG; Start 04/14/19 at 09:00 Acetaminophen (Tylenol Tab) 500 mg Q8 PRN PO MILD PAIN(1-3)OR ELEVATED TEMP Last administered on 04/14/19 08:56; Admin Dose 500 MG; Start 04/14/19 at 00:30 Morphine Sulfate (morphine) 1 mg Q4H PRN IV SEVERE PAIN LEVEL 7-10 Last administered on 04/17/19 20:06; Admin Dose 1 MG; Start 04/14/19 at 00:30 Zolpidem Tartrate (Ambien) 10 mg HS PRN PO INSOMNIA Last administered on 04/16/19 23:25; Admin Dose 10 MG; Start 04/14/19 at 14:30 Furosemide (Lasix) 40 mg BID DIURETICS IV Last administered on 04/19/19 05:49; Admin Dose 40 MG; Start 04/15/19 at 18:00 Enoxaparin Sodium (Lovenox) 40 mg DAILY SC Last administered on 04/18/19 08:57; Admin Dose 40 MG; Start 04/18/19 at 09:00 Losartan Potassium (Cozaar) 50 mg DAILY PO ; Start 04/18/19 at 09:00 Amoxicillin (Amoxicillin) 500 mg Q8 PO Last administered on 04/19/19 05:48; Admin Dose 500 MG; Start 04/17/19 at 22:00; Stop 04/20/19 at 22:00 Metoprolol Succinate (Toprol Xl) 25 mg DAILY PO ; Start 04/19/19 at 09:00 ARIEL HOBBS Apr 19, 2019 11:44
[2019-04-19] MEDS ORDERED: SOD CHLORIDE 0.9% 1,000 ML IV SCH (11:45)
[2019-04-19] MEDS ORDERED: ONDANSETRON 4 MG INJ IV PRN (12:00)
[2019-04-19] MEDS ORDERED: AL HYDROX/MG HYDROX/SIMETH 30 ML CUP PO PRN (12:00)
[2019-04-19] MEDS: FENOFIBRATE 145 MG TAB PO SCH (12:10)
[2019-04-19] MEDS: ASPIRIN 81 MG TAB PO SCH (12:10)
[2019-04-19] MEDS: ENOXAPARIN 40 MG/0.4 ML SYG SC SCH (12:10)
[2019-04-19] MEDS: MEGESTROL 40 MG TAB PO SCH ×2 (12:10→21:00)
[2019-04-19] MEDS: ISOSORBIDE MONONITRATE(SR)30 MG TAB PO SCH (12:10)
[2019-04-19] MEDS: CLOPIDOGREL 75 MG TAB PO SCH (12:10)
[2019-04-19] MEDS: METOPROLOL (XL) 25 MG TAB PO SCH (12:10)
[2019-04-19] MEDS: POTASSIUM CHLORIDE (SR) 8 MEQ CAP PO SCH (12:10)
[2019-04-19] MEDS: MAGNESIUM OXIDE 400 MG TAB PO SCH (12:10)
[2019-04-19] MEDS: FOLIC ACID 1 MG TAB PO SCH (12:10)
[2019-04-19] MEDS: SPIRONOLACTONE 25 MG TAB PO SCH (12:10)
--- NOTE | 2019-04-19 13:00 | SIPON ---
Date/Time of Note Date/Time of Note DATE: 04/19/19 TIME: 12:58 Operative Report Preoperative Diagnosis 1.NSTEMI Postoperative Diagnosis 1.obstrucvtive cad involving chronically 100% occluded diag/stent with LL collateral flow 2.moderate instent restenosis of LAD/RCA stents Operation/Procedure Performed 1.[facility] Surgeon see signature line trading assistant Richie Anesthesia: moderate sedation Estimated blood loss: minimal Transfusion Required none Specimen none Grafts/Implants none Complications none ARIEL HOBBS Apr 19, 2019 13:00
--- NOTE | 2019-04-19 14:02 | CONS ---
Consult Date/Type/Reason Admit Date/Time Apr 13, 2019 at 22:46 Initial Consult Date 04/14/19 Type of Consult Pulmonary Requesting Provider: PEDRO KRUSE MD Date/Time of Note DATE: 04/19/19 TIME: 14:00 Subjective Patient stable this morning denies chest pain. Objective Vital Signs Date Temp Pulse Resp B/P (MAP) Pulse Ox O2 O2 Flow FiO2 Time Delivery Rate 04/19/19 97.3 98 20 96/45 (62) 98 Room Air 13:36 04/19/19 21 00:15 Intake and Output 04/18/19 04/18/19 04/19/19 1515:00 23:00 07:00 IntakeIntake Total 300 ml 650 ml BalanceBalance 300 ml 650 ml Exam NECK: Supple. No JVD or lymphadenopathy. CARDIAC: S1, S2. No added sounds or murmurs. CHEST: Diminished air entry bilaterally. Coarse BS b/l ABDOMEN: Soft, nontender. No guarding or rebound. EXTREMITIES: No cyanosis, clubbing. 1+ edema. NEUROLOGIC: Grossly intact. No focal deficits. Vent Setting Fraction of Inspired Oxygen pe: 21 Results/Medications Result Diagram: 04/19/19 0748 04/19/19 0748 Results 24 hrs Laboratory Tests Test 04/19/19 07:48 White Blood Count 6.4 Red Blood Count 5.10 # Hemoglobin 13.4 Hematocrit 43.8 Mean Corpuscular Volume 85.9 Mean Corpuscular Hemoglobin 26.3 L Mean Corpuscular Hemoglobin Concent 30.6 L Red Cell Distribution Width 17.0 H Platelet Count 229 Mean Platelet Volume 11.6 H Immature Granulocytes % 0.200 Neutrophils % 72.7 Lymphocytes % 15.6 Monocytes % 10.3 Eosinophils % 0.9 Basophils % 0.3 Nucleated Red Blood Cells % 0.0 Immature Granulocytes # 0.010 Neutrophils # 4.7 Lymphocytes # 1.0 Monocytes # 0.7 Eosinophils # 0.1 Basophils # 0.0 Nucleated Red Blood Cells # 0.0 Prothrombin Time 12.4 Prothrombin Time Ratio 1.0 INR International Normalized Ratio 0.91 Sodium Level 142 Potassium Level 4.1 Chloride Level 103 Carbon Dioxide Level 28 Anion Gap 11 Blood Urea Nitrogen 17 Creatinine 0.76 Est Glomerular Filtrat Rate mL/min Glucose Level 108 Calcium Level 9.7 Medications Current Medications Acetaminophen (Tylenol Tab) 500 mg Q8 PRN PO temp. more then 99F Last administered on 04/18/19 15:14; Admin Dose 500 MG; Start 04/14/19 at 00:30 Albuterol (Proventil 0.083% (Neb)) 2.5 mg Q8H RESP THERAPY HHN Last administered on 04/19/19 00:14; Admin Dose 2.5 MG; Start 04/14/19 at 08:00 Aspirin (Aspirin) 81 mg DAILY PO Last administered on 04/18/19 08:48; Admin Dose 81 MG; Start 04/14/19 at 09:00 Clopidogrel Bisulfate (plaVIX) 75 mg DAILY PO Last administered on 04/18/19 08:46; Admin Dose 75 MG; Start 04/14/19 at 09:00 Digoxin (Digoxin) 0.125 mg DAILY@1300 PO Last administered on 04/18/19 12:37; Admin Dose 0.125 MG; Start 04/14/19 at 13:00 Folic Acid (Folic Acid) 1 mg DAILY PO Last administered on 04/18/19 08:47; Admin Dose 1 MG; Start 04/14/19 at 09:00 Albuterol/ Ipratropium (Duoneb) 3 ml Q4H RESP THERAPY PRN HHN SHORTNESS OF BREATH; Start 04/14/19 at 00:30 Isosorbide Mononitrate (Imdur) 30 mg DAILY PO ; Start 04/14/19 at 09:00 Levothyroxine Sodium (Synthroid) 125 mcg BEFORE BREAKFAST PO Last administered on 04/19/19 05:51; Admin Dose 125 MCG; Start 04/14/19 at 07:00 Lorazepam (Ativan) 0.5 mg Q8 PRN PO ANXIETY Last administered on 04/17/19 22: 38; Admin Dose 0.5 MG; Start 04/14/19 at 00:30 Magnesium Oxide (Mag-Ox 400) 400 mg DAILY PO Last administered on 04/18/19 08:47; Admin Dose 400 MG; Start 04/14/19 at 09:00 Megestrol Acetate (Megace) 40 mg BID PO Last administered on 04/18/19 08:46; Admin Dose 40 MG; Start 04/14/19 at 00:30 Ondansetron HCl (Zofran Tab) 4 mg Q6H PRN PO nausea/vomiting Last administered on 04/14/19 21:44; Admin Dose 4 MG; Start 04/14/19 at 00:30 Potassium Chloride (Micro-K) 8 meq DAILY PO Last administered on 04/18/19 08:47; Admin Dose 8 MEQ; Start 04/14/19 at 09:00 Spironolactone (Aldactone) 25 mg DAILY PO Last administered on 04/18/19 08:46; Admin Dose 25 MG; Start 04/14/19 at 09:00 Pantoprazole (Protonix Tab) 40 mg DAILY@06 PO Last administered on 04/19/19 05:48; Admin Dose 40 MG; Start 04/14/19 at 06:00 Fenofibrate (Tricor) 145 mg DAILY PO Last administered on 04/18/19 08:47; Admin Dose 145 MG; Start 04/14/19 at 09:00 Morphine Sulfate (morphine) 1 mg Q4H PRN IV SEVERE PAIN LEVEL 7-10 Last administered on 04/17/19 20:06; Admin Dose 1 MG; Start 04/14/19 at 00:30 Zolpidem Tartrate (Ambien) 10 mg HS PRN PO INSOMNIA Last administered on 04/16/19 23:25; Admin Dose 10 MG; Start 04/14/19 at 14:30 Furosemide (Lasix) 40 mg BID DIURETICS IV Last administered on 04/19/19 05:49; Admin Dose 40 MG; Start 04/15/19 at 18:00 Enoxaparin Sodium (Lovenox) 40 mg DAILY SC Last administered on 04/18/19 08:57; Admin Dose 40 MG; Start 04/18/19 at 09:00 Amoxicillin (Amoxicillin) 500 mg Q8 PO Last administered on 04/19/19 05:48; Admin Dose 500 MG; Start 04/17/19 at 22:00; Stop 04/20/19 at 22:00 Metoprolol Succinate (Toprol Xl) 25 mg DAILY PO ; Start 04/19/19 at 09:00 Losartan Potassium (Cozaar) 25 mg DAILY PO ; Start 04/19/19 at 15:00 Acetaminophen (Tylenol Tab) 650 mg Q4H PRN PO NON-CARDIAC PAIN LEVEL (1-3); Start 04/19/19 at 12:00 Al Hydrox/Mg Hydrox/Simethicone (Mag-Al Plus) 30 ml Q4H PRN PO GASTROINTESTINAL UPSET; Start 04/19/19 at 12:00 Ondansetron HCl (Zofran Inj) 4 mg Q4H PRN IV NAUSEA AND/OR VOMITING; Start 04/19/19 at 12:00 Sodium Chloride 1,000 ml @ 75 mls/hr [id number] IV Last administered on 04/19/19at 12:22; Admin Dose 75 MLS/HR; Start 04/19/19 at 11:45; Stop 04/19/19 at 16:44 Assessment/Plan Hospital Course (Demo Recall) , Cardiac recommendations post catheterization. IMP: 1. Dyspnea--in a patient with ischemic CMY and HFrEF. Findings most consistent with mild ADHF with associated type II NSTEMI 2. ADHF RECS: 1. Diuresis cardiac recommendations post catheterization. 2. Afterload reduction as per CV [facility] Apr 19, 2019 14:02
[2019-04-19] MEDS: DIGOXIN 0.125 MG TAB PO SCH (14:46)
[2019-04-19] MEDS: LOSARTAN 50 MG TAB PO SCH (14:48)
[2019-04-19] MEDS ORDERED: DIMETHICONE STICK TOP PRN (15:30)
--- NOTE | 2019-04-19 17:24 | RADRPT ---
Vent Rate: 97 bpm RR Interval: 620 msec SC Interval: 159 msec QRS Duration: 84 msec QT Interval: 353 msec QTC Interval: 448 msec P-R-T [place]: 50 - 7 - 161 degrees Sinus rhythm...normal P axis, V-rate 50- 99 Paired ventricular premature complexes...sequence of 2 V complexes Probable left atrial enlargement...P >50mS, <-0.10mV V1 Probable LVH with secondary repol abnrm...multiple LVH criteria Electronically Signed By: Johann Alvarez
--- NOTE | 2019-04-19 17:42 | CARRPT ---
DATE OF PROCEDURE: 04/19/2019 TYPE OF PROCEDURE: 1. Left heart catheterization. 2. Coronary angiography. 3. Moderate conscious sedation. ATTENDING PHYSICIAN: Dr. Ariel Alvarez REFERRING PHYSICIAN: Dr. Pedro Whitaker TYPE OF ANESTHESIA: Conscious and local. INDICATION: [id number] myocardial infarction. BRIEF HISTORY AND HOSPITAL COURSE: Ms. Gracia is a 73-year-old female with a history of hyperten darian, dyslipidemia, coronary artery disease status post multiple prior APPLIQUE SEWER and stent placement proced ures, cardiomyopathy with severely depressed left ventricular ejection fraction, lymphoma, who presen viktoria with a bout of congestive heart failure and sepsis, tachycardia, and in this setting ruled in for [id number] myocardial infarction. The patient subsequently was placed on medical therapy and has had down the cardiac enzymes, but due to recurrent episodes of chest pain and ongoing congestive heart failure, the patient was brought to cardiac hemodialysis lab technician in order to assess possibility of signific ant obstructive coronary artery disease recurrently, lending to decreased EF and [id number] severiano cardial infarction. DESCRIPTION OF PROCEDURE: After informed consent was obtained, the patient was brought to the [facility] cardiac hemodialysis lab technician where her left radial area was prepped and draped in the usua l sterile fashion. A 2% lidocaine was infiltrated into the left radial artery area in order to achie ve adequate local anesthesia. Using modified Seldinger technique, the left radial artery was cannula viktoria and a 6-[place] arterial sheath was placed. A 6-[place] JL3.5 catheter was used to cannulate the l eft main coronary ostium. With contrast injection, multiple views of the left coronary arterial syst em were obtained. JL3.5 was removed over guidewire and JR4 was used to cannulate the right coronary arterial ostium. With contrast injection, multiple views of the right coronary arterial system were obtained. JR4 was definitely exchanged for a 5-[place]ian due to some dampening, and once again, images were taken of the right coronary artery with no longer dampening. After this, JR4 and 5-[place] Lucian were removed. A 6-[place]ian pigtail catheter was passed down the ascending aorta and placed in LV. LVEDP wa s measured and then pulled back across the aortic valve to assess for significant gradient. Subseque ntly at this time, the patient's catheter was removed. The patient's sheath was removed. TR Band wa s applied. This completed the procedure. There were no complications. FINDINGS: Coronary angiography: Left main 4 mm, no significant stenosis. LAD proximally is a 3 mm vessel and its proximal portion has a patent stent with in-stent restenosis approximately 50%. The p atient's stents in the proximal LAD are widely patent and the LAD goes around the apex. There is a p roximal branching diagonal stent that is 100% occluded and then could be seen to fill distally from l eft to left collateral flow. The patient's circumflex proximally is a 2.5 mm vessel. It has widely patent stents in its proximal portion with no significant in-stent restenosis. In the mid portions o f the patient's circumflex stents are in-stent restenosis of approximately 30% to 40%. There is a mi d branching obtuse marginal of 2 mm with no significant focal stenosis and a very distal branching ob tuse marginal 2.5 mm with ostial 20% stenosis. The patient's right coronary artery proximally is a 2 .5 mm vessel and its proximal portion of the stent with in-stent restenosis up to approximately 50%. The remainder of the right coronary artery thereafter has mild only irregularities in the mid distal portion that is 20%, dominant vessel, gives off a 2 mm PDA with a proximal 30% to 40% stenosis and a posterolateral branch 2 mm with a 20% to 30% stenosis. Measurement of left ventricular end-diastolic pressure of 18. No significant aortic stenosis by grad ient. TOTAL FLUOROSCOPY TIME: 4 minutes TOTAL CONTRAST: 63 mL IMPRESSION: 1. Obstructive coronary artery disease involving a 100% occluded diagonal stent with recapitulation in the mid distal portion via [id number] collateral flow. 2. Moderate in-stent restenosis to left anterior descending and right coronary artery stents with ex cellent MEGHA 3 flow. 3. High normal left heart filling pressures. 4. No significant aortic stenosis by gradient. RECOMMENDATIONS: In light of procedural findings at this time, we would: 1. Maximize medical management. 2. Aggressive risk factor reduction. 3. The patient will be readmitted to telemetry floor for post-cath observation and continued managem ent of presenting symptoms with ongoing evaluation and treatment. Dictated By: ARIEL ALVAREZ/CECILIA Conf#: [id number] DID#: [id number] CC: PEDRO WHITAKER MD;*End*
[2019-04-19] MEDS ORDERED: MAGNESIUM SULFATE 2 GM/50 ML 50 ML IVPB ONE (18:30)
--- NOTE | 2019-04-19 18:55 | CONS ---
Assessment/Plan Assessment/Plan Hospital Course (Demo Recall) 1000 No events overnight Urine culture growing enterococcus species 30,000 colonies Antimicrobials: Amoxicillin Physical examination well-developed fragile elderly [place] woman who is alert in no distress. Head atraumatic normocephalic neck is supple chest rise symmetrical breath sounds clear heart S1-S2 abdomen soft bowel sounds present Assessment: 1. Non-ST elevation GA 2. UTI per urinalysis 3. 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 in am Consultation Date/Type/Reason Admit Date/Time Apr 13, 2019 at 22:46 Initial Consult Date 04/14/19 Type of Consult id Requesting Provider: PEDRO KRUSE MD Date/Time of Note DATE: 04/19/19 TIME: 18:54 Exam/Review of Systems Exam Vitals Vital Signs Date Temp Pulse Resp B/P (MAP) Pulse Ox O2 O2 Flow FiO2 Time Delivery Rate 04/19/19 107 16:43 04/19/19 98.2 20 116/92 100 Room Air 16:00 (100) 04/19/19 21 00:15 Intake and Output 04/18/19 04/18/19 04/19/19 1515:00 23:00 07:00 IntakeIntake Total 300 ml 650 ml BalanceBalance 300 ml 650 ml Results Result Diagram: 04/19/19 0748 04/19/19 0748 Results 24hrs Laboratory Tests Test 04/19/19 07:48 04/19/19 15:24 White Blood Count 6.4 Red Blood Count 5.10 # Hemoglobin 13.4 Hematocrit 43.8 Mean Corpuscular Volume 85.9 Mean Corpuscular Hemoglobin 26.3 L Mean Corpuscular Hemoglobin Concent 30.6 L Red Cell Distribution Width 17.0 H Platelet Count 229 Mean Platelet Volume 11.6 H Immature Granulocytes % 0.200 Neutrophils % 72.7 Lymphocytes % 15.6 Monocytes % 10.3 Eosinophils % 0.9 Basophils % 0.3 Nucleated Red Blood Cells % 0.0 Immature Granulocytes # 0.010 Neutrophils # 4.7 Lymphocytes # 1.0 Monocytes # 0.7 Eosinophils # 0.1 Basophils # 0.0 Nucleated Red Blood Cells # 0.0 Prothrombin Time 12.4 Prothrombin Time Ratio 1.0 INR International Normalized Ratio 0.91 Sodium Level 142 Potassium Level 4.1 Chloride Level 103 Carbon Dioxide Level 28 Anion Gap 11 Blood Urea Nitrogen 17 Creatinine 0.76 Est Glomerular Filtrat Rate mL/min Glucose Level 108 Calcium Level 9.7 Magnesium Level 1.7 Medications Medication Current Medications Acetaminophen (Tylenol Tab) 500 mg Q8 PRN PO temp. more then 99F Last administered on 04/18/19 15:14; Admin Dose 500 MG; Start 04/14/19 at 00:30 Albuterol (Proventil 0.083% (Neb)) 2.5 mg Q8H RESP THERAPY HHN Last administered on 04/19/19 00:14; Admin Dose 2.5 MG; Start 04/14/19 at 08:00 Aspirin (Aspirin) 81 mg DAILY PO Last administered on 04/18/19 08:48; Admin Dose 81 MG; Start 04/14/19 at 09:00 Clopidogrel Bisulfate (plaVIX) 75 mg DAILY PO Last administered on 04/18/19 08:46; Admin Dose 75 MG; Start 04/14/19 at 09:00 Digoxin (Digoxin) 0.125 mg DAILY@1300 PO Last administered on 04/19/19 14:46; Admin Dose 0.125 MG; Start 04/14/19 at 13:00 Folic Acid (Folic Acid) 1 mg DAILY PO Last administered on 04/18/19 08:47; Admin Dose 1 MG; Start 04/14/19 at 09:00 Albuterol/ Ipratropium (Duoneb) 3 ml Q4H RESP THERAPY PRN HHN SHORTNESS OF BREATH; Start 04/14/19 at 00:30 Isosorbide Mononitrate (Imdur) 30 mg DAILY PO ; Start 04/14/19 at 09:00 Levothyroxine Sodium (Synthroid) 125 mcg BEFORE BREAKFAST PO Last administered on 04/19/19 05:51; Admin Dose 125 MCG; Start 04/14/19 at 07:00 Lorazepam (Ativan) 0.5 mg Q8 PRN PO ANXIETY Last administered on 04/17/19 22:38; Admin Dose 0.5 MG; Start 04/14/19 at 00:30 Magnesium Oxide (Mag-Ox 400) 400 mg DAILY PO Last administered on 04/18/19 08:47; Admin Dose 400 MG; Start 04/14/19 at 09:00 Megestrol Acetate (Megace) 40 mg BID PO Last administered on 04/18/19 08:46; Admin Dose 40 MG; Start 04/14/19 at 00:30 Ondansetron HCl (Zofran Tab) 4 mg Q6H PRN PO nausea/vomiting Last administered on 04/14/19 21:44; Admin Dose 4 MG; Start 04/14/19 at 00:30 Potassium Chloride (Micro-K) 8 meq DAILY PO Last administered on 04/18/19 08:47; Admin Dose 8 MEQ; Start 04/14/19 at 09:00 Spironolactone (Aldactone) 25 mg DAILY PO Last administered on 04/18/19 08:46; Admin Dose 25 MG; Start 04/14/19 at 09:00 Pantoprazole (Protonix Tab) 40 mg DAILY@06 PO Last administered on 04/19/19 05:48; Admin Dose 40 MG; Start 04/14/19 at 06:00 Fenofibrate (Tricor) 145 mg DAILY PO Last administered on 04/18/19 08:47; Admin Dose 145 MG; Start 04/14/19 at 09:00 Morphine Sulfate (morphine) 1 mg Q4H PRN IV SEVERE PAIN LEVEL 7-10 Last administered on 04/17/19 20:06; Admin Dose 1 MG; Start 04/14/19 at 00:30 Zolpidem Tartrate (Ambien) 10 mg HS PRN PO INSOMNIA Last administered on 04/16/19 23:25; Admin Dose 10 MG; Start 04/14/19 at 14:30 Furosemide (Lasix) 40 mg BID DIURETICS IV Last administered on 04/19/19 18:30; Admin Dose 40 MG; Start 04/15/19 at 18:00 Enoxaparin Sodium (Lovenox) 40 mg DAILY SC Last administered on 04/18/19 08:57; Admin Dose 40 MG; Start 04/18/19 at 09:00 Amoxicillin (Amoxicillin) 500 mg Q8 PO Last administered on 04/19/19 14:46; Admin Dose 500 MG; Start 04/17/19 at 22:00; Stop 04/20/19 at 22:00 Metoprolol Succinate (Toprol Xl) 25 mg DAILY PO ; Start 04/19/19 at 09:00 Losartan Potassium (Cozaar) 25 mg DAILY PO Last administered on 6/7/19at 14:48; Admin Dose 25 MG; Start 04/19/19 at 15:00 Acetaminophen (Tylenol Tab) 650 mg Q4H PRN PO NON-CARDIAC PAIN LEVEL (1-3); Start 04/19/19 at 12:00 Al Hydrox/Mg Hydrox/Simethicone (Mag-Al Plus) 30 ml Q4H PRN PO GASTROINTESTINAL UPSET; Start 04/19/19 at 12:00 Ondansetron HCl (Zofran Inj) 4 mg Q4H PRN IV NAUSEA AND/OR VOMITING; Start 04/19/19 at 12:00 Dimethicone (Blistex Lip [place]) 1 applic Q2H PRN TOP DRY LIPS; Start 04/19/19 at 15:30 Magnesium Sulfate 50 ml @ 25 mls/hr ONCE ONCE IVPB Last administered on 04/19/19at 18:32; Admin Dose 25 MLS/HR; Start 04/19/19 at 18:30; Stop 04/19/19 at 20:29 CARMELITA TINSLEY NP Apr 19, 2019 18:55
--- NOTE | 2019-04-19 21:07 | PN ---
Date/Time of Note Date/Time of Note DATE: 04/19/19 TIME: 21:04 Assessment/Plan VTE Prophylaxis Risk score (from Nsg)>0 risk: 2 SCD applied (from Ns): Yes SCD contraindicated: other (on) Pharmacological prophylaxis: LMWH Lines/Catheters IV Catheter Type (from Nrsg): [place] [employer] line still needed: No Urinary Cath still in place: No Reason Cath still needed: urinary retention Assessment/Plan Assessment/Plan 1. Severe respiratory distress with worsening of wheezing and inability to sleep. Improvingon. 2.IHD angina, new onset PA by positive troponin series still high. Discussed with Dr. Alvarez. HX of recent PTCA with one stent and 3 balloon dilatation of narrow coronary arteries(; according to the daughter). Status post stapling of mitral valve 6 months ago in [facility] with improvement of condition immediately after the procedure but still she is having frequent hospitalizati ons. Although it is evident that the cause is not over drinking possibly medication noncompliance. Discussed with Dr. Alvarez. 3. Dysphagia to solids and sometimes to liquids now to everything. Refuses to eat secondary to pain.. Called Dr. matos [phone] for a ENT consultation. 4. Pulmonary edema by x-ray with wheezing on admission, improved after lasix. Ejection fraction is visually estimated at 25-30 %. Improved. 5. History of Hodgkin lymphoma- s/p chemotherapy and hydration 10 days ago. 6. Osteoarthritis with pain syndrome 7. Anxiety disorder. 8. Depression with grief reaction-s/p loss of . 9. Urinary incontinence. 10. Osteoporosis. 11. Kyphosis. 12. Postmenopausal syndrome. 13. Anemia with nl iron. 14. Brain atrophy on CT. 15. Left sphenoid sinusitis on CT. 16. Left ventricular hypertrophy. 17. Urinary incontinence with recurrent UTIs. Now with enterococcus species. 18.Cerebrovascular accident, with left facial drooling, left facial weakness, with slurred speech and dysphagia. Mild left upper extremity weakness. 19. Hypertension, now normotensive.Cardiomegaly on cxr 20. Status post left subclavian area pacemaker implantation about 3 months ago. 21. Status post mitral valve endocardial manipulation with stapling of the valves with good clinical results. 22. Recurrent episodes of V. tach now 8 complexes on a monitor and SVT; pl aced on the monitor but cardiology consult. 23.Weight loss mainly due to of not eating well. 24.Sleeplessness 25.Poor self expression capacity and getting worse. Talks for minutes but unable to conclude talk or be precise. 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 27. Weight loss 20.Medication noncompliance. Result Diagram: 04/19/19 0748 04/19/19 0748 Results 24hrs Laboratory Tests Test 04/19/19 07:48 04/19/19 15:24 White Blood Count 6.4 Red Blood Count 5.10 # Hemoglobin 13.4 Hematocrit 43.8 Mean Corpuscular Volume 85.9 Mean Corpuscular Hemoglobin 26.3 L Mean Corpuscular Hemoglobin Concent 30.6 L Red Cell Distribution Width 17.0 H Platelet Count 229 Mean Platelet Volume 11.6 H Immature Granulocytes % 0.200 Neutrophils % 72.7 Lymphocytes % 15.6 Monocytes % 10.3 Eosinophils % 0.9 Basophils % 0.3 Nucleated Red Blood Cells % 0.0 Immature Granulocytes # 0.010 Neutrophils # 4.7 Lymphocytes # 1.0 Monocytes # 0.7 Eosinophils # 0.1 Basophils # 0.0 Nucleated Red Blood Cells # 0.0 Prothrombin Time 12.4 Prothrombin Time Ratio 1.0 INR International Normalized Ratio 0.91 Sodium Level 142 Potassium Level 4.1 Chloride Level 103 Carbon Dioxide Level 28 Anion Gap 11 Blood Urea Nitrogen 17 Creatinine 0.76 Est Glomerular Filtrat Rate mL/min Glucose Level 108 Calcium Level 9.7 Magnesium Level 1.7 Subjective 24 Hr Interval Summary Free Text/Dictation Dysphagia neck pain shortness of breath. Constitutional: improved, poor po, requiring O2; No no complaints, No chills, No diaphoresis, No disoriented, No febrile, No requiring IVF, No other Eyes: No no complaints, No pain, No discharge, No redness, No visual change, No other ENT: pain, congestion, dysphagia; No no complaints, No bleeding, No discharge, No sore throat, No other Respiratory: cough, pleuritic pain, shortness of breath; No no complaints, No pain, No sputum, No wheezing, No other Cardiovascular: chest pain; No no complaints, No edema, No lightheadedness, No orthopenea, No palpitations, No paroxysmal nocturnal dyspnea, No other Gastrointestinal: constipation, decreased appetite; No no complaints, No pain, No blood, No diarrhea, No flatus, No nausea, No passing stool, No vomiting, No other Genitourinary: dysuria; No no complaints, No bleeding, No discharge, No flank pain, No hematuria, No other Musculoskeletal: back pain, bone/joint pain; No no complaints, No neck pain, No restricted range of motion, No swelling, No other Skin: bruising, erythema; No no complaints, No laceration, No pruritis, No rash, No skin lesions, No other Neurologic: No no complaints, No confusion, No dizziness, No focal-weakness, No headache, No syncope, No seizure, No other Endocrine: polyuria, dry skin; No no complaints, No polydypsia, No temp intolerance, No other Lymphatic: No no complaints, No adenopathy, No tender nodes, No lymphadema, No other Psychological: anxiety, depression; No no complaints, No nl mood/affect, No confusion, No suicidal, No other Exam/Review of Systems Exam Vitals Vital Signs Date Temp Pulse Resp B/P (MAP) Pulse Ox O2 O2 Flow FiO2 Time Delivery Rate 04/19/19 98.5 99 18 109/63 100 Room Air 19:35 (78) 04/19/19 21 00:15 Intake and Output 04/18/19 04/18/19 04/19/19 1515:00 23:00 07:00 IntakeIntake Total 300 ml 650 ml BalanceBalance 300 ml 650 ml Constitutional: alert, oriented, well developed, distress, frail; No non-verbal, No obese, No other Psych: nl mood/affect, anxiety, confusion; No no complaints, No depression, No suicidal, No other Head: normocephalic, atraumatic Eyes: EOMI, nl lids, PERRL; No nl conjunctiva, No nl sclera, No icteric, No fundi, disc, No other ENMT: nl external ears & nose, nl nasal mucosa & septum; No nl lips & teeth, No mucosa pink and moist, No intubated, No tympanic membranes, No other Neck: jvd, bruits, thyromegaly, nuchal rigidity; No supple, No non-tender, No masses, No other Respiratory: congested cough, crackles/rales, diminished breath sounds; No clear to auscultation, No normal air movement, No intercostal retraction, No labored breathing, No respirations, No tactile fremitus, No wheezing, No other Cardiovascular: No regular rate and rhythm, No nl pulses, No bruits, No diastolic murmur, No edema, No gallop, No irregular rhythm, No jugular venous distention (JVD), No murmurs/extra sounds, No rub, No systolic murmur, No S3, No S4, No other Gastrointestinal: soft, nl liver, spleen, bowel sounds, distended; No non-tender, No ascites, No firm, No hepatomegaly, No mass, No rebound or guarding, No splenomegaly, No surgical scars, No tender, No other Musculoskeletal: nl gait and stance, joint tenderness, muscle tone, muscle weakness; No nl extremities to inspection, No range of motion, No spine non-tender, No swelling, No other Extremities: normal pulses, cyanosis 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, confused, focal weakness, numbness; No nl mental status, No nl speech, No nl strength, No DTR's symmetric, No lethargic, No reflexes, No unresponsive, No other Skin: nl turgor (Decreased.), ecchymosis; No rash or lesions, No diaphoresis, No laceration, No puncture, No other Lymph: No nl lymph nodes, No enlarged, No nontender, No other Results Results 24hrs Laboratory Tests Test 04/19/19 07:48 04/19/19 15:24 White Blood Count 6.4 Red Blood Count 5.10 # Hemoglobin 13.4 Hematocrit 43.8 Mean Corpuscular Volume 85.9 Mean Corpuscular Hemoglobin 26.3 L Mean Corpuscular Hemoglobin Concent 30.6 L Red Cell Distribution Width 17.0 H Platelet Count 229 Mean Platelet Volume 11.6 H Immature Granulocytes % 0.200 Neutrophils % 72.7 Lymphocytes % 15.6 Monocytes % 10.3 Eosinophils % 0.9 Basophils % 0.3 Nucleated Red Blood Cells % 0.0 Immature Granulocytes # 0.010 Neutrophils # 4.7 Lymphocytes # 1.0 Monocytes # 0.7 Eosinophils # 0.1 Basophils # 0.0 Nucleated Red Blood Cells # 0.0 Prothrombin Time 12.4 Prothrombin Time Ratio 1.0 INR International Normalized Ratio 0.91 Sodium Level 142 Potassium Level 4.1 Chloride Level 103 Carbon Dioxide Level 28 Anion Gap 11 Blood Urea Nitrogen 17 Creatinine 0.76 Est Glomerular Filtrat Rate mL/min Glucose Level 108 Calcium Level 9.7 Magnesium Level 1.7 Medications Medication Current Medications Acetaminophen (Tylenol Tab) 500 mg Q8 PRN PO temp. more then 99F Last administered on 04/18/19 15:14; Admin Dose 500 MG; Start 04/14/19 at 00:30 Albuterol (Proventil 0.083% (Neb)) 2.5 mg Q8H RESP THERAPY HHN Last administered on 04/19/19 00:14; Admin Dose 2.5 MG; Start 04/14/19 at 08:00 Aspirin (Aspirin) 81 mg DAILY PO Last administered on 04/18/19 08:48; Admin Dos e 81 MG; Start 04/14/19 at 09:00 Clopidogrel Bisulfate (plaVIX) 75 mg DAILY PO Last administered on 04/18/19 08:46; Admin Dose 75 MG; Start 04/14/19 at 09:00 Digoxin (Digoxin) 0.125 mg DAILY@1300 PO Last administered on 04/19/19 14:46; Admin Dose 0.125 MG; Start 04/14/19 at 13:00 Folic Acid (Folic Acid) 1 mg DAILY PO Last administered on 04/18/19 08:47; Admin Dose 1 MG; Start 04/14/19 at 09:00 Albuterol/ Ipratropium (Duoneb) 3 ml Q4H RESP THERAPY PRN HHN SHORTNESS OF BREATH; Start 04/14/19 at 00:30 Isosorbide Mononitrate (Imdur) 30 mg DAILY PO ; Start 04/14/19 at 09:00 Levothyroxine Sodium (Synthroid) 125 mcg BEFORE BREAKFAST PO Last administered on 04/19/19 05:51; Admin Dose 125 MCG; Start 04/14/19 at 07:00 Lorazepam (Ativan) 0.5 mg Q8 PRN PO ANXIETY Last administered on 04/17/19 22:38; Admin Dose 0.5 MG; Start 04/14/19 at 00:30 Magnesium Oxide (Mag-Ox 400) 400 mg DAILY PO Last administered on 04/18/19 08:47; Admin Dose 400 MG; Start 04/14/19 at 09:00 Megestrol Acetate (Megace) 40 mg BID PO Last administered on 04/18/19 08:46; Admin Dose 40 MG; Start 04/14/19 at 00:30 Ondansetron HCl (Zofran Tab) 4 mg Q6H PRN PO nausea/vomiting Last administered on 04/14/19 21:44; Admin Dose 4 MG; Start 04/14/19 at 00:30 Potassium Chloride (Micro-K) 8 meq DAILY PO Last administered on 04/18/19 0 8:47; Admin Dose 8 MEQ; Start 04/14/19 at 09:00 Spironolactone (Aldactone) 25 mg DAILY PO Last administered on 04/18/19 08:46; Admin Dose 25 MG; Start 04/14/19 at 09:00 Pantoprazole (Protonix Tab) 40 mg DAILY@06 PO Last administered on 04/19/19 05:48; Admin Dose 40 MG; Start 04/14/19 at 06:00 Fenofibrate (Tricor) 145 mg DAILY PO Last administered on 04/18/19 08:47; Admin Dose 145 MG; Start 04/14/19 at 09:00 Morphine Sulfate (morphine) 1 mg Q4H PRN IV SEVERE PAIN LEVEL 7-10 Last administered on 04/17/19 20:06; Admin Dose 1 MG; Start 04/14/19 at 00:30 Zolpidem Tartrate (Ambien) 10 mg HS PRN PO INSOMNIA Last administered on 04/16/19 23:25; Admin Dose 10 MG; Start 04/14/19 at 14:30 Furosemide (Lasix) 40 mg BID DIURETICS IV Last administered on 04/19/19 18:30; Admin Dose 40 MG; Start 04/15/19 at 18:00 Enoxaparin Sodium (Lovenox) 40 mg DAILY SC Last administered on 04/18/19 08:57; Admin Dose 40 MG; Start 04/18/19 at 09:00 Amoxicillin (Amoxicillin) 500 mg Q8 PO Last administered on 04/19/19 14:46; Admin Dose 500 MG; Start 04/17/19 at 22:00; Stop 04/19/19 at 22:00 Metoprolol Succinate (Toprol Xl) 25 mg DAILY PO ; Start 04/19/19 at 09:00 Losartan Potassium (Cozaar) 25 mg DAILY PO Last administered on 6/7/19at 14:48; Admin Dose 25 MG; Start 04/19/19 at 15:00 Acetaminophen (Tylenol Tab) 650 mg Q4H PRN PO NON-CARDIAC PAIN LEVEL (1-3); Start 04/19/19 at 12:00 Al Hydrox/Mg Hydrox/Simethicone (Mag-Al Plus) 30 ml Q4H PRN PO GASTROINTESTINAL UPSET; Start 04/19/19 at 12:00 Ondansetron HCl (Zofran Inj) 4 mg Q4H PRN IV NAUSEA AND/OR VOMITING; Start 04/19/19 at 12:00 Dimethicone (Blistex Lip [place]) 1 applic Q2H PRN TOP DRY LIPS; Start 04/19/19 at 15:30 PEDRO KRUSE MD Apr 19, 2019 21:07
[2019-04-19] MEDS: ACETAMINOPHEN 325 MG TAB PO PRN (22:00)
[2019-04-20] VITALS (12 sets, daily range): BP systolic 97–104; BP diastolic 53–60; PULSE 80–108; RESP 18–19
[2019-04-20] MEDS: LEVOTHYROXINE 125 MCG TAB PO SCH (06:07)
[2019-04-20] MEDS: PANTOPRAZOLE (EC) 40 MG TAB PO SCH (06:07)
[2019-04-20] MEDS: FUROSEMIDE 40 MG INJ IV SCH ×2 (06:07→17:36)
[2019-04-20] MEDS: ALBUTEROL 0.083% (NEB) 2.5 MG/3 ML AMP HHN SCH ×4 (08:00→23:54)
--- NOTE | 2019-04-20 08:34 | PN ---
Date/Time of Note Date/Time of Note DATE: 04/20/19 TIME: 08:31 Assessment/Plan VTE Prophylaxis Risk score (from Nsg)>0 risk: 4 SCD applied (from Nsg): Yes SCD contraindicated: other (on.) Pharmacological prophylaxis: LMWH Lines/Catheters IV Catheter Type (from Nrsg): Saline [place] line still needed: No Urinary Cath still in place: No Reason Cath still needed: urinary retention Assessment/Plan Assessment/Plan 1. Severe respiratory distress with worsening of wheezing and inability to sleep. Improvingon. 2.IHD angina, new onset [place] by positive troponin series still high. Discussed with Dr. Alvarez. HX of recent PTCA with one stent and 3 balloon dilatation of narrow coronary arteries(; according to the daughter). Status post stapling of mitral valve 6 months ago in [facility] with improvement of condition immediately after the procedure but still she is having frequent hospitalizat ions. Although it is evident that the cause is not over drinking possibly medication noncompliance. Discussed with Dr. Alvarez. 3. Dysphagia to solids and sometimes to liquids now to everything. Refuses to eat secondary to pain.. Called Dr. matos [phone] for a ENT consultation. 4. Pulmonary edema by x-ray with wheezing on admission, improved after lasix. Ejection fraction is visually estimated at 25-30 %. Improved. 5. History of Hodgkin lymphoma- s/p chemotherapy and hydration 10 days ago. 6. Osteoarthritis with pain syndrome 7. Anxiety disorder. 8. Depression with grief reaction-s/p loss of . 9. Urinary incontinence. 10. Osteoporosis. 11. Kyphosis. 12. Postmenopausal syndrome. 13. Anemia with nl iron. 14. Brain atrophy on CT. 15. Left sphenoid sinusitis on CT. 16. Left ventricular hypertrophy. 17. Urinary incontinence with recurrent UTIs. Now with enterococcus species. 18.Cerebrovascular accident, with left facial drooling, left facial weakness, with slurred speech and dysphagia. Mild left upper extremity weakness. 19. Hypertension, now normotensive.Cardiomegaly on cxr 20. Status post left subclavian area pacemaker implantation about 3 months ago. 21. Status post mitral valve endocardial manipulation with stapling of the valves with good clinical results. 22. Recurrent episodes of V. tach now 8 complexes on a monitor and SVT; p laced on the monitor but cardiology consult. 23.Weight loss mainly due to of not eating well. 24.Sleeplessness 25.Poor self expression capacity and getting worse. Talks for minutes but unable to conclude talk or be precise. 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 27. Weight loss 20.Medication noncompliance. Result Diagram: 04/19/19 0748 04/19/19 0748 Results 24hrs Laboratory Tests Test 04/19/19 15:24 Magnesium Level 1.7 Subjective 24 Hr Interval Summary Free Text/Dictation neck pain and dysphagia persists. Admits of not taking "cholesterol "pills. Discussed in the presence of the son. Constitutional: improved, poor po, requiring O2; No no complaints, No chills, No diaphoresis, No disoriented, No febrile, No requiring IVF, No other Eyes: No no complaints, No pain, No discharge, No redness, No visual change, No other ENT: dysphagia; No no complaints, No bleeding, No pain, No congestion, No discharge, No sore throat, No other Respiratory: cough, shortness of breath; No no complaints, No pain, No pleuritic pain, No sputum, No wheezing, No other Cardiovascular: chest pain, lightheadedness, orthopenea, palpitations, paroxysmal nocturnal dyspnea; No no complaints, No edema, No other Gastrointestinal: constipation, decreased appetite; No no complaints, No pain, No blood, No diarrhea, No flatus, No nausea, No passing stool, No vomiting, No other Genitourinary: dysuria; No no complaints, No bleeding, No discharge, No flank pain, No hematuria, No other Musculoskeletal: back pain, bone/joint pain, neck pain Skin: bruising, erythema, pruritis; No no complaints, No laceration, No rash, No skin lesions, No other Neurologic: dizziness, headache; No no complaints, No confusion, No focal-weakness, No syncope, No seizure, No other Endocrine: No no complaints, No polyuria, No polydypsia, No dry skin, No temp intolerance, No other Lymphatic: adenopathy; No no complaints, No tender nodes, No lymphadema, No other Psychological: anxiety, depression; No no complaints, No nl mood/affect, No confusion, No suicidal, No other Exam/Review of Systems Exam Vitals Vital Signs Date Temp Pulse Resp B/P (MAP) Pulse Ox O2 O2 Flow FiO2 Time Delivery Rate 04/20/19 98.1 93 18 104/58 96 Room Air 08:14 (73) 04/19/19 21 00:15 Constitutional: alert, oriented, well developed, distress, frail Psych: anxiety; No no complaints, No nl mood/affect, No confusion, No depression, No suicidal, No other Head: normocephalic, atraumatic, lacerations; No hematomas, No other Eyes: EOMI, nl lids, PERRL; No nl conjunctiva, No nl sclera, No icteric, No fundi, disc, No other ENMT: nl nasal mucosa & septum Neck: non-tender, jvd, bruits, thyromegaly, nuchal rigidity; No supple, No masses, No other Respiratory: congested cough, crackles/rales, diminished breath sounds; No clear to auscultation, No normal air movement, No intercostal retraction, No labored breathing, No respirations, No tactile fremitus, No wheezing, No ot her Cardiovascular: nl pulses, bruits, systolic murmur; No regular rate and rhythm, No diastolic murmur, No edema, No gallop, No irregular rhythm, No jugular venous distention (JVD), No murmurs/extra sounds, No rub, No S3, No S4, No other Gastrointestinal: soft, nl liver, spleen, bowel sounds, distended; No non-tender, No ascites, No firm, No hepatomegaly, No mass, No rebound or guarding, No splenomegaly, No surgical scars, No tender, No other Musculoskeletal: nl gait and stance, joint tenderness, muscle tone, muscle weakness; No nl extremities to inspection, No range of motion, No spine non-tender, No swelling, No other Extremities: normal pulses; No calf tenderness, No cyanosis, No clubbing, No edema, No pitting pedal edema, No palpable cord, No tenderness, No other 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: PATHOLOGY SECRETARY/TRANSCRIPTIONIST II-XII intact, confused, numbness; No nl mental status, No nl speech, No nl strength, No DTR's symmetric, No focal weakness, No lethargic, No reflexes, No unresponsive, No other Skin: nl turgor (decreased.), rash or lesions; No diaphoresis, No ecchymosis, No laceration, No puncture, No other Lymph: No nl lymph nodes, No enlarged, No nontender, No other Results Results 24hrs Laboratory Tests Test 04/19/19 15:24 Magnesium Level 1.7 Medications Medication Current Medications Acetaminophen (Tylenol Tab) 500 mg Q8 PRN PO temp. more then 99F Last administered on 04/18/19 15:14; Admin Dose 500 MG; Start 04/14/19 at 00:30 Albuterol (Proventil 0.083% (Neb)) 2.5 mg Q8H RESP THERAPY HHN Last administered on 04/19/19 00:14; Admin Dose 2.5 MG; Start 04/14/19 at 08:00 Aspirin (Aspirin) 81 mg DAILY PO Last administered on 04/18/19 08:48; Admin Dose 81 MG; Start 04/14/19 at 09:00 Clopidogrel Bisulfate (plaVIX) 75 mg DAILY PO Last administered on 04/18/19 08:46; Admin Dose 75 MG; Start 04/14/19 at 09:00 Digoxin (Digoxin) 0.125 mg DAILY@1300 PO Last administered on 04/19/19 14:46; Admin Dose 0.125 MG; Start 04/14/19 at 13:00 Folic Acid (Folic Acid) 1 mg DAILY PO Last administered on 04/18/19 08:47; Admin Dose 1 MG; Start 04/14/19 at 09:00 Albuterol/ Ipratropium (Duoneb) 3 ml Q4H RESP THERAPY PRN HHN SHORTNESS OF BR EATH; Start 04/14/19 at 00:30 Isosorbide Mononitrate (Imdur) 30 mg DAILY PO ; Start 04/14/19 at 09:00 Levothyroxine Sodium (Synthroid) 125 mcg BEFORE BREAKFAST PO Last administered on 04/20/19 06:07; Admin Dose 125 MCG; Start 04/14/19 at 07:00 Lorazepam (Ativan) 0.5 mg Q8 PRN PO ANXIETY Last administered on 04/17/19 22:38; Admin Dose 0.5 MG; Start 04/14/19 at 00:30 Magnesium Oxide (Mag-Ox 400) 400 mg DAILY PO Last administered on 04/18/19 08:47; Admin Dose 400 MG; Start 04/14/19 at 09:00 Megestrol Acetate (Megace) 40 mg BID PO Last administered on 04/18/19 08:46; Admin Dose 40 MG; Start 04/14/19 at 00:30 Ondansetron HCl (Zofran Tab) 4 mg Q6H PRN PO nausea/vomiting Last administered on 04/14/19 21:44; Admin Dose 4 MG; Start 04/14/19 at 00:30 Potassium Chloride (Micro-K) 8 meq DAILY PO Last administered on 04/18/19 08:47; Admin Dose 8 MEQ; Start 04/14/19 at 09:00 Spironolactone (Aldactone) 25 mg DAILY PO Last administered on 04/18/19 08:46; Admin Dose 25 MG; Start 04/14/19 at 09:00 Pantoprazole (Protonix Tab) 40 mg DAILY@06 PO Last administered on 04/20/19 06:07; Admin Dose 40 MG; Start 04/14/19 at 06:00 Fenofibrate (Tricor) 145 mg DAILY PO Last administered on 04/18/19 08:47; Admin Dose 145 MG; Start 04/14/19 at 09:00 Morphine Sulfate (morphine) 1 mg Q4H PRN IV SEVERE PAIN LEVEL 7-10 Last administered on 04/17/19 20:06; Admin Dose 1 MG; Start 04/14/19 at 00:30 Zolpidem Tartrate (Ambien) 10 mg HS PRN PO INSOMNIA Last administered on 04/16/19 23:25; Admin Dose 10 MG; Start 04/14/19 at 14:30 Furosemide (Lasix) 40 mg BID DIURETICS IV Last administered on 04/20/19 06:07; Admin Dose 40 MG; Start 04/15/19 at 18:00 Enoxaparin Sodium (Lovenox) 40 mg DAILY SC Last administered on 04/18/19 08:57; Admin Dose 40 MG; Start 04/18/19 at 09:00 Metoprolol Succinate (Toprol Xl) 25 mg DAILY PO ; Start 04/19/19 at 09:00 Losartan Potassium (Cozaar) 25 mg DAILY PO Last administered on 04/19/19 14:48; Admin Dose 25 MG; Start 04/19/19 at 15:00 Acetaminophen (Tylenol Tab) 650 mg Q4H PRN PO NON-CARDIAC PAIN LEVEL (1-3) Last administered on 04/19/19at 22:00; Admin Dose 650 MG; Start 04/19/19 at 12:00 Al Hydrox/Mg Hydrox/Simethicone (Mag-Al Plus) 30 ml Q4H PRN PO GASTROINTESTINAL UPSET; Start 04/19/19 at 12:00 Ondansetron HCl (Zofran Inj) 4 mg Q4H PRN IV NAUSEA AND/OR VOMITING; Start 04/19/19 at 12:00 Dimethicone (Blistex Lip [place]) 1 applic Q2H PRN TOP DRY LIPS; Start 04/19/19 at 15:30 PEDRO KRUSE MD Apr 20, 2019 08:34
[2019-04-20] MEDS: MAGNESIUM OXIDE 400 MG TAB PO SCH (09:48)
[2019-04-20] MEDS: MEGESTROL 40 MG TAB PO SCH ×2 (09:48→21:27)
[2019-04-20] MEDS: ASPIRIN 81 MG TAB PO SCH (09:48)
[2019-04-20] MEDS: LIDOCAINE 5% PATCH TD SCH (09:48)
[2019-04-20] MEDS: FOLIC ACID 1 MG TAB PO SCH (09:48)
[2019-04-20] MEDS: FENOFIBRATE 145 MG TAB PO SCH (09:49)
[2019-04-20] MEDS: POTASSIUM CHLORIDE (SR) 8 MEQ CAP PO SCH (09:49)
[2019-04-20] MEDS: CLOPIDOGREL 75 MG TAB PO SCH (09:49)
[2019-04-20] MEDS: SPIRONOLACTONE 25 MG TAB PO SCH (09:50)
[2019-04-20] MEDS: ENOXAPARIN 40 MG/0.4 ML SYG SC SCH (09:57)
[2019-04-20] MEDS: LOSARTAN 50 MG TAB PO SCH ×2 (14:10→14:43)
[2019-04-20] MEDS: ISOSORBIDE MONONITRATE(SR)30 MG TAB PO SCH ×2 (14:10→14:42)
[2019-04-20] MEDS: DIGOXIN 0.125 MG TAB PO SCH (14:27)
--- NOTE | 2019-04-20 14:29 | CONS ---
Assessment/Plan Assessment/Plan Hospital Course (Demo Recall) IMP: 1.Nstemi-Had some chest pain and enzymes are downtrending. [place] type 2 demand infarct. Patient refusing all medications. Now s/p C with patent LAD/RCA/LCX stents and chronic occlusion of diag stent. NO new stents placed 2.CHF-systolic acute on chronic EF 20-25% by echo 03/01 jen due to combination of cad and CTX. Lexiscan 03/01 with no sig ischemia/EF 19% 3.Chest pain-currently resolved 4.sob-secondary to CHF 5.dysphagia-patient stating that medications/food geeting stuck in throat 6.Lymphoma-s/p CTX. But per onc note disease is progressive and refractory 7.Dyslipidemia 8.UTI 9. H/O ICD 10. NSVT-recurrent short runs, BUT BB held due to marginal BP 11.MR- now mild by echo 03/01 s/p mitral valve e-clip Recc: -Tele -Continue antiplatelet agents as patient will comply -Contineu gentle lasix diuresis/aldactone and follow volume status -Continue BB/ARB(both doses decreased to allow patient to tolerate)aldactone/digoxin/imdur as patient will take/comply -follow for recurrent arrythmias Consultation Date/Type/Reason Admit Date/Time Apr 13, 2019 at 22:46 Initial Consult Date 04/14/19 Type of Consult Cardiology Reason for Consultation cardiomyopathy/CHF/chest pain Requesting Provider: PEDRO KRUSE MD Date/Time of Note DATE: 04/20/19 TIME: 14:25 Exam/Review of Systems Vital Signs Vitals Vital Signs Date Temp Pulse Resp B/P (MAP) Pulse Ox O2 O2 Flow FiO2 Time Delivery Rate 04/20/19 97.2 90 18 101/55 97 Room Air 11:58 (70) 04/19/19 21 00:15 Exam Exam Review of Systems: CONSTITUTIONAL: No fevers, chills. PULMONARY: No sob CARDIOVASCULAR: No chest pain/palpitations GASTROINTESTINAL: No nausea/vomiting. GENITOURINARY: No hematuria/dysuria. MUSCULOSKELETAL: No myagias/arthalgias. PSYCHIATRIC: The patient denies depression. NEUROLOGIC: No weakness Constitutional: alert Psych: no complaints Head: normocephalic ENMT: mucosa pink and moist Neck: supple Respiratory: clear to auscultation Cardiovascular: regular rate and rhythm Gastrointestinal: soft, non-tender Musculoskeletal: muscle tone Extremities: edema (none) 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: other (no focal deficits) Labs Result Diagram: 04/19/19 0748 04/19/19 0748 Results 24hrs Laboratory Tests Test 04/19/19 15:24 Magnesium Level 1.7 Medications Medications Current Medications Acetaminophen (Tylenol Tab) 500 mg Q8 PRN PO temp. more then 99F Last administered on 04/18/19 15:14; Admin Dose 500 MG; Start 04/14/19 at 00:30 Albuterol (Proventil 0.083% (Neb)) 2.5 mg Q8H RESP THERAPY HHN Last adminis tered on 04/19/19 00:14; Admin Dose 2.5 MG; Start 04/14/19 at 08:00 Aspirin (Aspirin) 81 mg DAILY PO Last administered on 04/20/19 09:48; Admin Dose 81 MG; Start 04/14/19 at 09:00 Clopidogrel Bisulfate (plaVIX) 75 mg DAILY PO Last administered on 04/20/19 09:49; Admin Dose 75 MG; Start 04/14/19 at 09:00 Digoxin (Digoxin) 0.125 mg DAILY@1300 PO Last administered on 04/19/19 14:46; Admin Dose 0.125 MG; Start 04/14/19 at 13:00 Folic Acid (Folic Acid) 1 mg DAILY PO Last administered on 04/20/19 09:48; Admin Dose 1 MG; Start 04/14/19 at 09:00 Albuterol/ Ipratropium (Duoneb) 3 ml Q4H RESP THERAPY PRN HHN SHORTNESS OF BREATH; Start 04/14/19 at 00:30 Isosorbide Mononitrate (Imdur) 30 mg DAILY PO ; Start 04/14/19 at 09:00 Levothyroxine Sodium (Synthroid) 125 mcg BEFORE BREAKFAST PO Last administered on 04/20/19 06:07; Admin Dose 125 MCG; Start 04/14/19 at 07:00 Lorazepam (Ativan) 0.5 mg Q8 PRN PO ANXIETY Last administered on 04/17/19 22:38; Admin Dose 0.5 MG; Start 04/14/19 at 00:30 Magnesium Oxide (Mag-Ox 400) 400 mg DAILY PO Last administered on 04/20/19 09:48; Admin Dose 400 MG; Start 04/14/19 at 09:00 Megestrol Acetate (Megace) 40 mg BID PO Last administered on 04/20/19 09:48; Admin Dose 40 MG; Start 04/14/19 at 00:30 Ondansetron HCl (Zofran Tab) 4 mg Q6H PRN PO nausea/vomiting Last administered on 04/14/19 21:44; Admin Dose 4 MG; Start 04/14/19 at 00:30 Potassium Chloride (Micro-K) 8 meq DAILY PO Last administered on 04/20/19 09:49; Admin Dose 8 MEQ; Start 04/14/19 at 09:00 Spironolactone (Aldactone) 25 mg DAILY PO Last administered on 04/20/19 09:50; Admin Dose 25 MG; Start 04/14/19 at 09:00 Pantoprazole (Protonix Tab) 40 mg DAILY@06 PO Last administered on 04/20/19 06:07; Admin Dose 40 MG; Start 04/14/19 at 06:00 Fenofibrate (Tricor) 145 mg DAILY PO Last administered on 04/20/19 09:49; Admin Dose 145 MG; Start 04/14/19 at 09:00 Morphine Sulfate (morphine) 1 mg Q4H PRN IV SEVERE PAIN LEVEL 7-10 Last administered on 04/17/19 20:06; Admin Dose 1 MG; Start 04/14/19 at 00:30 Zolpidem Tartrate (Ambien) 10 mg HS PRN PO INSOMNIA Last administered on 04/16/19 23:25; Admin Dose 10 MG; Start 04/14/19 at 14:30 Furosemide (Lasix) 40 mg BID DIURETICS IV Last administered on 04/20/19 06:07; Admin Dose 40 MG; Start 04/15/19 at 18:00 Enoxaparin Sodium (Lovenox) 40 mg DAILY SC Last administered on 04/20/19 09:57; Admin Dose 40 MG; Start 04/18/19 at 09:00 Metoprolol Succinate (Toprol Xl) 25 mg DAILY PO ; Start 04/19/19 at 09:00 Losartan Potassium (Cozaar) 25 mg DAILY PO Last administered on 6/7/19at 14:48; Admin Dose 25 MG; Start 04/19/19 at 15:00 Acetaminophen (Tylenol Tab) 650 mg Q4H PRN PO NON-CARDIAC PAIN LEVEL (1-3) Last administered on 04/19/19at 22:00; Admin Dose 650 MG; Start 04/19/19 at 12:00 Al Hydrox/Mg Hydrox/Simethicone (Mag-Al Plus) 30 ml Q4H PRN PO GASTROINTESTINAL UPSET; Start 04/19/19 at 12:00 Ondansetron HCl (Zofran Inj) 4 mg Q4H PRN IV NAUSEA AND/OR VOMITING; Start 04/19/19 at 12:00 Dimethicone (Blistex Lip [place]) 1 applic Q2H PRN TOP DRY LIPS; Start 04/19/19 at 15:30 Lidocaine (Lidoderm) 1 patch DAILY TD Last administered on 04/20/19at 09:48; Admin Dose 1 PATCH; Start 04/20/19 at 09:30 ARIEL HOBBS Apr 20, 2019 14:29
[2019-04-20] MEDS: METOPROLOL (XL) 25 MG TAB PO SCH (14:38)
[2019-04-21] VITALS (15 sets, daily range): BP systolic 92–120; BP diastolic 55–77; PULSE 81–104; RESP 17–20
[2019-04-21] MEDS: ZOLPIDEM 5 MG TAB PO PRN ×2 (00:26→23:15)
[2019-04-21] MEDS: LANSOPRAZOLE 30 MG CAP PO SCH (06:14)
[2019-04-21] MEDS: LEVOTHYROXINE 125 MCG TAB PO SCH (06:15)
[2019-04-21] MEDS: FUROSEMIDE 40 MG INJ IV SCH ×2 (06:23→18:17)
[2019-04-21] MEDS: ALBUTEROL 0.083% (NEB) 2.5 MG/3 ML AMP HHN SCH ×2 (08:00→16:00)
[2019-04-21] MEDS: METOPROLOL (XL) 25 MG TAB PO SCH ×2 (09:00→09:05)
[2019-04-21] MEDS: POTASSIUM CHLORIDE (SR) 8 MEQ CAP PO SCH ×2 (09:00→09:04)
[2019-04-21] MEDS: MEGESTROL 40 MG TAB PO SCH ×3 (09:00→20:38)
[2019-04-21] MEDS: LIDOCAINE 5% PATCH TD SCH ×2 (09:00→09:06)
[2019-04-21] MEDS: SPIRONOLACTONE 25 MG TAB PO SCH ×2 (09:00→09:04)
[2019-04-21] MEDS: LOSARTAN 50 MG TAB PO SCH ×2 (09:00→09:05)
[2019-04-21] MEDS: ASPIRIN 81 MG TAB PO SCH ×2 (09:00→09:04)
[2019-04-21] MEDS: ISOSORBIDE MONONITRATE(SR)30 MG TAB PO SCH ×2 (09:00→09:05)
[2019-04-21] MEDS: FOLIC ACID 1 MG TAB PO SCH ×2 (09:00→09:04)
[2019-04-21] MEDS: FENOFIBRATE 145 MG TAB PO SCH ×2 (09:00→09:04)
[2019-04-21] MEDS: MAGNESIUM OXIDE 400 MG TAB PO SCH ×2 (09:00→09:04)
[2019-04-21] MEDS: CLOPIDOGREL 75 MG TAB PO SCH ×2 (09:00→09:04)
[2019-04-21] MEDS: ENOXAPARIN 40 MG/0.4 ML SYG SC SCH (09:20)
--- NOTE | 2019-04-21 12:16 | PN ---
Date/Time of Note Date/Time of Note DATE: 04/21/19 TIME: 12:12 Assessment/Plan VTE Prophylaxis Risk score (from Nsg)>0 risk: 5 SCD applied (from Ns): Yes SCD contraindicated: other Pharmacological prophylaxis: LMWH Lines/Catheters IV Catheter Type (from Nrsg): Peripheral IV Central line still needed: No Urinary Cath still in place: No Reason Cath still needed: urinary retention Assessment/Plan Assessment/Plan 1. Severe respiratory distress with worsening of wheezing and inability to sleep. Improvingon. 2.IHD angina, new onset [place] by positive troponin series still high. Discussed with Dr. Alvarez. HX of recent PTCA with one stent and 3 balloon dilatation of narrow coronary arteries(; according to the daughter). Status post stapling of mitral valve 6 months ago in [facility] with improvement of condition immediately after the procedure but still she is having frequent hospitalizations. Although it is evident that the cause is not over drinking possibly medication noncompliance. Discussed with Dr. Alvarez. 3. Dysphagia to solids and sometimes to liquids now to everything. Refuses to eat secondary to pain.. Called Dr. matos [phone] for a ENT consultation. 4. Pulmonary edema by x-ray with wheezing on admission, improved after lasix. Ejection fraction is visually estimated at 25-30 %. Improved. 5. History of Hodgkin lymphoma- s/p chemotherapy and hydration 10 days ago. 6. Osteoarthritis with pain syndrome 7. Anxiety disorder. 8. Depression with grief reaction-s/p loss of . 9. Urinary incontinence. 10. Osteoporosis. 11. Kyphosis. 12. Postmenopausal syndrome. 13. Anemia with nl iron. 14. Brain atrophy on CT. 15. Left sphenoid sinusitis on CT. 16. Left ventricular hypertrophy. 17. Urinary incontinence with recurrent UTIs. Now with enterococcus species. 18.Cerebrovascular accident, with left facial drooling, left facial weakness, with slurred speech and dysphagia. Mild left upper extremity weakness. 19. Hypertension, now normotensive.Cardiomegaly on cxr 20. Status post left subclavian area pacemaker implantation about 3 months ago. 21. Status post mitral valve endocardial manipulation with stapling of the valves with good clinical results. 22. Recurrent episodes of V. tach now 8 complexes on a monitor and SVT; placed on the monitor but cardiology consult. 23.Weight loss mainly due to of not eating well. 24.Sleeplessness 25.Poor self expression capacity and getting worse. Talks for minutes but unable to conclude talk or be precise. 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 27. Weight loss 20.Medication noncompliance. Result Diagram: 04/19/19 0748 04/19/19 0748 Subjective 24 Hr Interval Summary Free Text/Dictation Difficulty swallowing. Pain in the right side of her neck. Full stays in the upper part of my retrosternal area. Worsening of her chest pain on the right side. Lidoderm patch helped about 50%. Constitutional: improved, chills, diaphoresis, poor po; No no complaints, No disoriented, No febrile, No requiring IVF, No requiring O2, No other Eyes: No no complaints, No pain, No discharge, No redness, No visual change, No other ENT: No no complaints, No bleeding, No pain, No congestion, No discharge, No dysphagia, No sore throat, No other Respiratory: cough, pleuritic pain, shortness of breath; No no complaints, No pain, No sputum, No wheezing, No other Cardiovascular: chest pain; No no complaints, No edema, No lightheadedness, No orthopenea, No palpitations, No paroxysmal nocturnal dyspnea, No other Gastrointestinal: decreased appetite, flatus; No no complaints, No pain, No blood, No constipation, No diarrhea, No nausea, No passing stool, No vomiting, No other Genitourinary: dysuria; No no complaints, No bleeding, No discharge, No flank pain, No hematuria, No other Musculoskeletal: back pain, bone/joint pain; No no complaints, No neck pain, No restricted range of motion, No swelling, No other Skin: No no complaints, No bruising, No erythema, No laceration, No pruritis, No rash, No skin lesions, No other Neurologic: confusion, dizziness, other (On and off very dissatisfied.); No no complaints, No focal-weakness, No headache, No syncope, No seizure Exam/Review of Systems Exam Vitals Vital Signs Date Temp Pulse Resp B/P (MAP) Pulse Ox O2 O2 Flow FiO2 Time Delivery Rate 04/21/19 Room Air 12:08 04/21/19 98.0 96 20 111/69 95 11:36 (83) 04/20/19 23:55 Intake and Output 04/20/19 04/20/19 04/21/19 1515:00 23:00 07:00 IntakeIntake Total 410 ml 600 ml BalanceBalance 410 ml 600 ml Constitutional: alert, oriented, well developed, distress, frail Psych: anxiety; No no complaints, No nl mood/affect, No confusion, No depression, No suicidal, No other Head: normocephalic, atraumatic; No lacerations, No hematomas, No other Eyes: EOMI, nl lids, PERRL, fundi, disc; No nl conjunctiva, No nl sclera, No icteric, No other ENMT: nl external ears & nose, nl nasal mucosa & septum; No nl lips & teeth, No mucosa pink and moist, No intubated, No tympanic membranes, No other Neck: No supple, No non-tender, No jvd, No bruits, No masses, No thyromegaly, No nuchal rigidity, No other Respiratory: normal air movement, crackles/rales, diminished breath sounds; No clear to auscultation, No congested cough, No intercostal retraction, No labored breathing, No respirations, No tactile fremitus, No wheezing, No other Cardiovascular: regular rate and rhythm, systolic murmur; No nl pulses, No bruits, No diastolic murmur, No edema, No gallop, No irregular rhythm, No jugular venous distention (JVD), No murmurs/extra sounds, No rub, No S3, No S4, No other Gastrointestinal: soft, non-tender, bowel sounds; No nl liver, spleen, No ascites, No distended, No firm, No hepatomegaly, No mass, No rebound or guarding, No splenomegaly, No surgical scars, No tender, No other Genitourinary - Female: nl adnexae, nl external genitalia; No CMT, No CVA tenderness, No uterus, No other Musculoskeletal: nl gait and stance (Awake fragile near full episodes when alone due to the significant muscular wasting and decrease of her muscular tone.), joint tenderness, muscle tone, muscle weakness; No nl extremities to inspection, No range of motion, No spine non-tender, No swelling, No other Extremities: cyanosis, palpable cord; No normal pulses, No calf tenderness, No clubbing, No edema, No pitting pedal edema, No tenderness, No other 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: [employer] II-XII intact, confused, lethargic, numbness; No nl mental status, No nl speech, No nl strength, No DTR's symmetric, No focal weakness, No reflexes, No unresponsive, No other Lymph: nl lymph nodes; No enlarged, No nontender, No other Medications Medication Current Medications Acetaminophen (Tylenol Tab) 500 mg Q8 PRN PO temp. more then 99F Last administered on 04/18/19 15:14; Admin Dose 500 MG; Start 04/14/19 at 00:30 Albuterol (Proventil 0.083% (Neb)) 2.5 mg Q8H RESP THERAPY HHN Last administered on 04/19/19 00:14; Admin Dose 2.5 MG; Start 04/14/19 at 08:00 Aspirin (Aspirin) 81 mg DAILY PO Last administered on 04/20/19 09:48; Admin Dose 81 MG; Start 04/14/19 at 09:00 Clopidogrel Bisulfate (plaVIX) 75 mg DAILY PO Last administered on 04/20/19 09:49; Admin Dose 75 MG; Start 04/14/19 at 09:00 Digoxin (Digoxin) 0.125 mg DAILY@1300 PO Last administered on 04/20/19 14:27; Admin Dose 0.125 MG; Start 04/14/19 at 13:00 Folic Acid (Folic Acid) 1 mg DAILY PO Last administered on 04/20/19 09:48; Admin Dose 1 MG; Start 04/14/19 at 09:00 Albuterol/ Ipratropium (Duoneb) 3 ml Q4H RESP THERAPY PRN HHN SHORTNESS OF BREATH; Start 04/14/19 at 00:30 Isosorbide Mononitrate (Imdur) 30 mg DAILY PO Last administered on 04/20/19 14:42; Admin Dose 30 MG; Start 04/14/19 at 09:00 Levothyroxine Sodium (Synthroid) 125 mcg BEFORE BREAKFAST PO Last administered on 04/21/19 06:15; Admin Dose 125 MCG; Start 04/14/19 at 07:00 Lorazepam (Ativan) 0.5 mg Q8 PRN PO ANXIETY Last administered on 04/17/19 22:38; Admin Dose 0.5 MG; Start 04/14/19 at 00:30 Magnesium Oxide (Mag-Ox 400) 400 mg DAILY PO Last administered on 04/20/19 09:48; Admin Dose 400 MG; Start 04/14/19 at 09:00 Megestrol Acetate (Megace) 40 mg BID PO Last administered on 04/20/19 21:27; Admin Dose 40 MG; Start 04/14/19 at 00:30 Ondansetron HCl (Zofran Tab) 4 mg Q6H PRN PO nausea/vomiting Last administered on 04/14/19 21:44; Admin Dose 4 MG; Start 04/14/19 at 00:30 Potassium Chloride (Micro-K) 8 meq DAILY PO Last administered on 04/20/19 09:49; Admin Dose 8 MEQ; Start 04/14/19 at 09:00 Spironolactone (Aldactone) 25 mg DAILY PO Last administered on 04/20/19 09:50; Admin Dose 25 MG; Start 04/14/19 at 09:00 Fenofibrate (Tricor) 145 mg DAILY PO Last administered on 04/20/19 09:49; Admin Dose 145 MG; Start 04/14/19 at 09:00 Morphine Sulfate (morphine) 1 mg Q4H PRN IV SEVERE PAIN LEVEL 7-10 Last administered on 04/17/19 20:06; Admin Dose 1 MG; Start 04/14/19 at 00:30 Zolpidem Tartrate (Ambien) 10 mg HS PRN PO INSOMNIA Last administered on 04/21/19 00:26; Admin Dose 10 MG; Start 04/14/19 at 14:30 Furosemide (Lasix) 40 mg BID DIURETICS IV Last administered on 04/21/19 06:23; Admin Dose 40 MG; Start 04/15/19 at 18:00 Enoxaparin Sodium (Lovenox) 40 mg DAILY SC Last administered on 04/21/19 09:20; Admin Dose 40 MG; Start 04/18/19 at 09:00 Metoprolol Succinate (Toprol Xl) 25 mg DAILY PO Last administered on 04/20/19 14:38; Admin Dose 25 MG; Start 04/19/19 at 09:00 Losartan Potassium (Cozaar) 25 mg DAILY PO Last administered on 6/8/19at 14:43; Admin Dose 25 MG; Start 04/19/19 at 15:00 Acetaminophen (Tylenol Tab) 650 mg Q4H PRN PO NON-CARDIAC PAIN LEVEL (1-3) Last administered on 04/19/19at 22:00; Admin Dose 650 MG; Start 04/19/19 at 12:00 Al Hydrox/Mg Hydrox/Simethicone (Mag-Al Plus) 30 ml Q4H PRN PO GASTROINTESTINAL UPSET; Start 04/19/19 at 12:00 Ondansetron HCl (Zofran Inj) 4 mg Q4H PRN IV NAUSEA AND/OR VOMITING; Start 04/19/19 at 12:00 Dimethicone (Blistex Lip [place]) 1 applic Q2H PRN TOP DRY LIPS; Start 04/19/19 at 15:30 Lidocaine (Lidoderm) 1 patch DAILY TD Last administered on 04/20/19at 09:48; Admin Dose 1 PATCH; Start 04/20/19 at 09:30 Lansoprazole (Prevacid) 30 mg DAILY@06 PO Last administered on 04/21/19at 06:14; Admin Dose 30 MG; Start 04/21/19 at 06:00 PEDRO KRUSE MD Apr 21, 2019 12:16
[2019-04-21] MEDS: ACETAMINOPHEN 325 MG TAB PO PRN (13:19)
[2019-04-21] MEDS: DIGOXIN 0.125 MG TAB PO SCH (13:19)
--- NOTE | 2019-04-21 14:30 | CONS ---
Assessment/Plan Assessment/Plan Hospital Course (Demo Recall) IMP: 1.Nstemi-Had some chest pain and enzymes are downtrending. [place] type 2 demand infarct. Patient refusing all medications. Now s/p [facility] with patent LAD/RCA/LCX stents and chronic occlusion of diag stent. NO new stents placed 2.CHF-systolic acute on chronic EF 20-25% by echo 03/01 jen due to combination of cad and CTX. Lexiscan 03/01 with no sig ischemia/EF 19% 3.Chest pain-currently resolved 4.sob-secondary to CHF 5.dysphagia-patient stating that medications/food geeting stuck in throat 6.Lymphoma-s/p CTX. But per onc note disease is progressive and refractory 7.Dyslipidemia 8.UTI 9. H/O ICD 10. NSVT-recurrent short runs, BUT BB held due to marginal BP 11.MR- now mild by echo 03/01 s/p mitral valve e-clip Recc: -Tele -Continue antiplatelet agents as patient will comply, refused again today -Contineu lasix diuresis/aldactone and follow volume status with likely change in lasix to PO tomorrow/at time of d/c -Continue BB/ARB(both doses decreased to allow patient to tolerate)ald actone/digoxin/imdur as patient will take/comply -follow for recurrent arrythmias which patient has not had -ok for d/c planning from cardiac standpoint at this time Consultation Date/Type/Reason Admit Date/Time Apr 13, 2019 at 22:46 Initial Consult Date 04/14/19 Type of Consult Cardiology Reason for Consultation CHF/NSTEMI Requesting Provider: PEDRO KRUSE MD Date/Time of Note DATE: 04/21/19 TIME: 14:26 Exam/Review of Systems Vital Signs Vitals Vital Signs Date Temp Pulse Resp B/P (MAP) Pulse Ox O2 O2 Flow FiO2 Time Delivery Rate 04/21/19 Room Air 12:08 04/21/19 96 12:00 04/21/19 98.0 20 111/69 95 11:36 (83) 04/20/19 21 23:55 Intake and Output 04/20/19 04/20/19 04/21/19 1515:00 23:00 07:00 IntakeIntake Total 410 ml 600 ml BalanceBalance 410 ml 600 ml Exam Exam Review of Systems: CONSTITUTIONAL: No fevers, chills. PULMONARY: No sob CARDIOVASCULAR: No chest pain/palpitations GASTROINTESTINAL: No nausea/vomiting. GENITOURINARY: No hematuria/dysuria. MUSCULOSKELETAL: No myagias/arthalgias. PSYCHIATRIC: The patient denies depression. NEUROLOGIC: No weakness Constitutional: alert Psych: no complaints Head: normocephalic ENMT: mucosa pink and moist Neck: supple, jvd (9 cm water) Respiratory: diminished breath sounds (at bases/B) Cardiovascular: regular rate and rhythm Gastrointestinal: soft, non-tender Musculoskeletal: muscle tone (normal) Extremities: edema (none) 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: other (No focal defecits) Labs Result Diagram: 04/19/19 0748 04/19/19 0748 Medications Medications Current Medications Acetaminophen (Tylenol Tab) 500 mg Q8 PRN PO temp. more then 99F Last administered on 04/18/19 15:14; Admin Dose 500 MG; Start 04/14/19 at 00:30 Albuterol (Proventil 0.083% (Neb)) 2.5 mg Q8H RESP THERAPY HHN Last administered on 04/19/19 00:14; Admin Dose 2.5 MG; Start 04/14/19 at 08:00 Aspirin (Aspirin) 81 mg DAILY PO Last administered on 04/20/19 09:48; Admin Dose 81 MG; Start 04/14/19 at 09:00 Clopidogrel Bisulfate (plaVIX) 75 mg DAILY PO Last administered on 04/20/19 09:49; Admin Dose 75 MG; Start 04/14/19 at 09:00 Digoxin (Digoxin) 0.125 mg DAILY@1300 PO Last administered on 04/21/19 13:19; Admin Dose 0.125 MG; Start 04/14/19 at 13:00 Folic Acid (Folic Acid) 1 mg DAILY PO Last administered on 04/20/19 09:48; Admin Dose 1 MG; Start 04/14/19 at 09:00 Albuterol/ Ipratropium (Duoneb) 3 ml Q4H RESP THERAPY PRN HHN SHORTNESS OF BREATH; Start 04/14/19 at 00:30 Isosorbide Mononitrate (Imdur) 30 mg DAILY PO Last administered on 04/20/19 14:42; Admin Dose 30 MG; Start 04/14/19 at 09:00 Levothyroxine Sodium (Synthroid) 125 mcg BEFORE BREAKFAST PO Last administered on 04/21/19 06:15; Admin Dose 125 MCG; Start 04/14/19 at 07:00 Lorazepam (Ativan) 0.5 mg Q8 PRN PO ANXIETY Last administered on 04/17/19 22:38; Admin Dose 0.5 MG; Start 04/14/19 at 00:30 Magnesium Oxide (Mag-Ox 400) 400 mg DAILY PO Last administered on 04/20/19 09:48; Admin Dose 400 MG; Start 04/14/19 at 09:00 Megestrol Acetate (Megace) 40 mg BID PO Last administered on 04/20/19 21:27; Admin Dose 40 MG; Start 04/14/19 at 00:30 Ondansetron HCl (Zofran Tab) 4 mg Q6H PRN PO nausea/vomiting Last administered on 04/14/19 21:44; Admin Dose 4 MG; Start 04/14/19 at 00:30 Potassium Chloride (Micro-K) 8 meq DAILY PO Last administered on 04/20/19 09:49; Admin Dose 8 MEQ; Start 04/14/19 at 09:00 Spironolactone (Aldactone) 25 mg DAILY PO Last administered on 04/20/19 09:50; Admin Dose 25 MG; Start 04/14/19 at 09:00 Fenofibrate (Tricor) 145 mg DAILY PO Last administered on 04/20/19 09:49; Admin Dose 145 MG; Start 04/14/19 at 09:00 Morphine Sulfate (morphine) 1 mg Q4H PRN IV SEVERE PAIN LEVEL 7-10 Last administered on 04/17/19 20:06; Admin Dose 1 MG; Start 04/14/19 at 00:30 Zolpidem Tartrate (Ambien) 10 mg HS PRN PO INSOMNIA Last administered on 04/21/19 00:26; Admin Dose 10 MG; Start 04/14/19 at 14:30 Furosemide (Lasix) 40 mg BID DIURETICS IV Last administered on 04/21/19 06:23; Admin Dose 40 MG; Start 04/15/19 at 18:00 Enoxaparin Sodium (Lovenox) 40 mg DAILY SC Last administered on 04/21/19 09:20; Admin Dose 40 MG; Start 04/18/19 at 09:00 Metoprolol Succinate (Toprol Xl) 25 mg DAILY PO Last administered on 04/20/19 14:38; Admin Dose 25 MG; Start 04/19/19 at 09:00 Losartan Potassium (Cozaar) 25 mg DAILY PO Last administered on 04/20/19 14:43; Admin Dose 25 MG; Start 04/19/19 at 15:00 Acetaminophen (Tylenol Tab) 650 mg Q4H PRN PO NON-CARDIAC PAIN LEVEL (1-3) Last administered on 04/21/19 13:19; Admin Dose 650 MG; Start 04/19/19 at 12:00 Al Hydrox/Mg Hydrox/Simethicone (Mag-Al Plus) 30 ml Q4H PRN PO GASTROINTESTINAL UPSET; Start 04/19/19 at 12:00 Ondansetron HCl (Zofran Inj) 4 mg Q4H PRN IV NAUSEA AND/OR VOMITING; Start 04/19/19 at 12:00 Dimethicone (Blistex Lip [place]) 1 applic Q2H PRN TOP DRY LIPS; Start 04/19/19 at 15:30 Lidocaine (Lidoderm) 1 patch DAILY TD Last administered on 04/20/19 09:48; Admin Dose 1 PATCH; Start 04/20/19 at 09:30 Lansoprazole (Prevacid) 30 mg DAILY@06 PO Last administered on 04/21/19 06:14; Admin Dose 30 MG; Start 04/21/19 at 06:00 ARIEL HOBBS Apr 21, 2019 14:30
[2019-04-22] VITALS (7 sets, daily range): BP systolic 99–115; BP diastolic 54–69; PULSE 92–99; RESP 18–20
[2019-04-22] MEDS: LANSOPRAZOLE 30 MG CAP PO SCH (05:35)
[2019-04-22] MEDS: FUROSEMIDE 40 MG INJ IV SCH (05:38)
[2019-04-22] MEDS: LEVOTHYROXINE 125 MCG TAB PO SCH (05:40)
[2019-04-22] MEDS: ALBUTEROL 0.083% (NEB) 2.5 MG/3 ML AMP HHN SCH ×2 (08:00)
--- NOTE | 2019-04-22 08:18 | PDOCDIS ---
Discharge Instructions DIAGNOSIS Discharge Diagnosis 1. Severe respiratory distress with worsening of wheezing and inability to sleep. Improvingon. 2.IHD angina, new onset [place] by positive troponin series still high. Discussed with Dr. Alvarez. HX of recent PTCA with one stent and 3 balloon dilatation of narrow coronary arteries(; according to the daughter). Status post stapling of mitral valve 6 months ago in [facility] with improvement of condition immediately after the procedure but still she is having frequent hospitalizations. Although it is evident that the cause is not over drinking possibly medication noncompliance. Discussed with Dr. Alvarez. 3. Dysphagia to solids and sometimes to liquids now to everything. Refuses to eat secondary to pain.. Called Dr. matos [phone] for a ENT consultation. 4. Pulmonary edema by x-ray with wheezing on admission, improved after lasix. Ejection fraction is visually estimated at 25-30 %. Improved. 5. History of Hodgkin lymphoma- s/p chemotherapy and hydration 10 days ago. 6. Osteoarthritis with pain syndrome 7. Anxiety disorder. 8. Depression with grief reaction-s/p loss of . 9. Urinary incontinence. 10. Osteoporosis. 11. Kyphosis. 12. Postmenopausal syndrome. 13. Anemia with nl iron. 14. Brain atrophy on CT. 15. Left sphenoid sinusitis on CT. 16. Left ventricular hypertrophy. 17. Urinary incontinence with recurrent UTIs. Now with enterococcus species. 18.Cerebrovascular accident, with left facial drooling, left facial weakness, with slurred speech and dysphagia. Mild left upper extremity weakness. 19. Hypertension, now normotensive.Cardiomegaly on cxr 20. Status post left subclavian area pacemaker implantation about 3 months ago. 21. Status post mitral valve endocardial manipulation with stapling of the valves with good clinical results. 22. Recurrent episodes of V. tach now 8 complexes on a monitor and SVT; placed on the monitor but cardiology consult. 23.Weight loss mainly due to of not eating well. 24.Sleeplessness 25.Poor self expression capacity and getting worse. Talks for minutes but unable to conclude talk or be precise. 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 27. Weight loss 20.Medication noncompliance. CONDITION [id number] Patient Condition: [id number] Guarded HOME CARE INSTRUCTIONS: [id number] Diet Instructions: [id number] Reduced Sodium ACTIVITY: [id number] Activity Restrictions: [id number] Slowly Increase Activity FOLLOW UP/APPOINTMENTS Follow-up Plan In [address] Alvarez in [address] Whitaker. REFERRALS Other Referrals Dr. Salomon in 10 days. SCHOOL/WORK RELEASE May return to School/Work on: Apr 22, 2019 May return to School/Work with: PEDRO Gomez MD Apr 22, 2019 08:17
--- NOTE | 2019-04-22 08:20 | DS ---
Date/Time of Note Date/Time of Note DATE: 04/22/19 TIME: 08:19 Discharge Summary Admission/Discharge Info Admit Date/Time Apr 13, 2019 at 22:46 Discharge Date/Time Discharge Diagnosis 1. Severe respiratory distress with worsening of wheezing and inability to sleep. Improvingon. 2.IHD angina, new onset MT by positive troponin series still high. Discussed with Dr. Alvarez. HX of recent PTCA with one stent and 3 balloon dilatation of narrow coronary arteries(; according to the daughter). Status post stapling of mitral valve 6 months ago in [facility] with improvement of condition immediately after the procedure but still she is having frequent hospitalizations. Although it is evident that the cause is not over drinking possibly medication noncompliance. Discussed with Dr. Alvarez. 3. Dysphagia to solids and sometimes to liquids now to everything. Refuses to eat secondary to pain.. Called Dr. matos [phone] for a ENT consultation. 4. Pulmonary edema by x-ray with wheezing on admission, improved after lasix. Ejection fraction is visually estimated at 25-30 %. Improved. 5. History of Hodgkin lymphoma- s/p chemotherapy and hydration 10 days ago. 6. Osteoarthritis with pain syndrome 7. Anxiety disorder. 8. Depression with grief reaction-s/p loss of . 9. Urinary incontinence. 10. Osteoporosis. 11. Kyphosis. 12. Postmenopausal syndrome. 13. Anemia with nl iron. 14. Brain atrophy on CT. 15. Left sphenoid sinusitis on CT. 16. Left ventricular hypertrophy. 17. Urinary incontinence with recurrent UTIs. Now with enterococcus species. 18.Cerebrovascular accident, with left facial drooling, left facial weakness, with slurred speech and dysphagia. Mild left upper extremity weakness. 19. Hypertension, now normotensive.Cardiomegaly on cxr 20. Status post left subclavian area pacemaker implantation about 3 months ago. 21. Status post mitral valve endocardial manipulation with stapling of the valves with good clinical results. 22. Recurrent episodes of V. tach now 8 complexes on a monitor and SVT; placed on the monitor but cardiology consult. 23.Weight loss mainly due to of not eating well. 24.Sleeplessness 25.Poor self expression capacity and getting worse. Talks for minutes but unable to conclude talk or be precise. 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 27. Weight loss 20.Medication noncompliance. Patient Condition: Guarded Hx of Present Illness Dysphagia with painful swallowing and cough while eating, getting worse now with worsening of sob. F/C x 2 days. Food stays in upper and mid esophageal areas. Hospital Course The patient underwent angiography and found to have a IntraStent occlusion his left ventricular ejection fraction remains low at the level of 20-25. Dysphagia persists. Unable to organize a ENT consult in the hospital setting. Plan to organize it does not outpatient. Pain control with at least 50% achieved by using a Lidoderm patch. We will follow as an outpatient. Specifically was emphasized the necessity of continuation of lipid-lowering medications along with levothyroxine pain medications and continue chemotherapy which she is reluctant to take. Home Meds Active Scripts Ipratropium-Albuterol (Ipratropium-Albuterol) 0.5-3 Mg/3 Ml Ampul.neb, 3 ML HHN Q4H RESP THERAPY PRN for SHORTNESS OF BREATH for 30 Days, #90 Prov:PEDRO WHITAKER MD 09/16/18 Albuterol Sulfate* (Albuterol Sulfate* Neb) 0.083%-3 Ml Neb, 2.5 MG HHN Q8H RESP THERAPY for 90 Days, #90 CAP 2 Refills Prov:PEDRO WHITAKER MD 09/16/18 Fenofibrate* (Fenofibrate*) 200 Mg Cap, 200 MG PO DAILY for 30 Days, #30 CAP Prov:PEDRO WHITAKER MD 09/16/18 Furosemide* (Furosemide*) 40 Mg Tablet, 40 MG PO DAILY for 30 Days, #30 TAB Prov:PEDRO WHITAKER MD 09/16/18 Spironolactone* (Aldactone*) 25 Mg Tablet, 25 MG PO DAILY, #30 TAB Prov:PEDRO WHITAKER MD 09/16/18 Megestrol Acetate* (Megace*) 40 Mg Tab, 40 MG PO BID for 60 Days, #30 TAB Prov:PEDRO WHITAKER MD 09/16/18 Digoxin* (Lanoxin*) 0.125 Mg Tablet, 0.125 MG PO DAILY for 30 Days, #30 TAB Prov:PEDRO WHITAKER MD 09/16/18 Potassium Chloride* (Potassium Chloride*) 8 Meq Capsule.er, 8 MEQ PO DAILY for 30 Days, #30 CAP Prov:PEDRO WHITAKER MD 09/16/18 Isosorbide Mononitrate* (Isosorbide Mononitrate*) 30 Mg Tab.er.24h, 30 MG PO DAILY for 30 Days, #30 TAB Prov:PEDRO WHITAKER MD 09/16/18 Clopidogrel Bisulfate (Clopidogrel) 75 Mg Tablet, 75 MG PO DAILY, #30 TAB Prov:PEDRO WHITAKER MD 09/16/18 Acetaminophen* (Tylenol*) 500 Mg Tab, 500 MG PO Q8 PRN for pain and temp. more then 99F for 30 Days, #90 TAB Prov:PEDRO WHITAKER MD 09/16/18 Metoprolol Tartrate* (Lopressor*) 50 Mg Tab, 50 MG PO BID, #60 TAB Prov:PEDRO WHITAKER MD 09/16/18 Folic Acid* (Folic Acid*) 1 Mg Tablet, 1 MG PO DAILY for 30 Days, #30 TAB Prov:PEDRO WHITAKER MD 09/16/18 Losartan-Hydrochlorothiazide (Losartan-HCTZ) 100-25 Mg Tab, 1 TAB PO DAILY for 30 Days, #30 TAB Prov:PEDRO WHITAKER MD 09/16/18 Aspirin* (Aspirin* Chew) 81 Mg Tab.chew, 81 MG PO DAILY for 30 Days, #30 TAB.CHEW Prov:PEDRO WHITAKER MD 09/16/18 Reported Medications Levothyroxine Sodium* (Levothyroxine Sodium*) 125 Mcg Tablet, 125 MCG PO BEFORE BREAKFAST, #30 TAB 02/11/19 Esomeprazole Mag Trihydrate (Nexium) 40 Mg Capsule.dr, 40 MG PO DAILY, #30 CAP 02/11/19 Lorazepam* (Lorazepam*) 0.5 Mg Tablet, 0.5 MG PO Q8 PRN for ANXIETY, TAB 02/11/19 Magnesium Oxide* (Magnesium Oxide*) 400 Mg Tablet, 400 MG PO DAILY, TAB 02/11/19 Ondansetron Hcl* (Ondansetron Hcl*) 4 Mg Tablet, 4 MG PO Q6H PRN for nausea/vomiting, TAB 02/11/19 Ergocalciferol* (Drisdol* (Vitamin D2)) 50,000 Unit Capsule, [address]5211 UNIT PO Q7D for 30 Days, #4 CAP 08/04/16 Follow-up Plan In [address] Alvarez in [address] Whitaker. Primary Care Provider MD AIXA Hill VAGHARSHAK MD Apr 22, 2019 08:20
[2019-04-22] MEDS: ASPIRIN 81 MG TAB PO SCH (10:57)
[2019-04-22] MEDS: LOSARTAN 50 MG TAB PO SCH (10:58)
[2019-04-22] MEDS: POTASSIUM CHLORIDE (SR) 8 MEQ CAP PO SCH (10:58)
[2019-04-22] MEDS: SPIRONOLACTONE 25 MG TAB PO SCH (10:58)
[2019-04-22] MEDS: FENOFIBRATE 145 MG TAB PO SCH (10:58)
[2019-04-22] MEDS: CLOPIDOGREL 75 MG TAB PO SCH (10:58)
[2019-04-22] MEDS: MAGNESIUM OXIDE 400 MG TAB PO SCH (10:58)
[2019-04-22] MEDS: MEGESTROL 40 MG TAB PO SCH (10:58)
[2019-04-22] MEDS: METOPROLOL (XL) 25 MG TAB PO SCH (10:59)
[2019-04-22] MEDS: FOLIC ACID 1 MG TAB PO SCH (10:59)
[2019-04-22] MEDS: ISOSORBIDE MONONITRATE(SR)30 MG TAB PO SCH (10:59)
[2019-04-22] MEDS: LIDOCAINE 5% PATCH TD SCH (11:01)
[2019-04-22] MEDS: ENOXAPARIN 40 MG/0.4 ML SYG SC SCH (11:05)
[2019-04-22] MEDS: DIGOXIN 0.125 MG TAB PO SCH (13:00)
--- NOTE | 2019-04-22 13:04 | CONS ---
Assessment/Plan Assessment/Plan Hospital Course (Demo Recall) IMP: 1.Nstemi-Had some chest pain and enzymes are downtrending. Jongley type 2 demand infarct. Patient refusing all medications. Now s/p [facility] with patent LAD/RCA/LCX stents and chronic occlusion of diag stent. NO new stents placed or necessary 2.CHF-systolic acute on chronic EF 20-25% by echo 03/01 jen due to combination of cad and CTX. Lexiscan 03/01 with no sig ischemia/EF 19% 3.Chest pain-currently resolved 4.sob-secondary to CHF 5.dysphagia-patient stating that medications/food geeting stuck in throat 6.Lymphoma-s/p CTX. But per onc note disease is progressive and refractory 7.Dyslipidemia 8.UTI 9. H/O ICD 10. NSVT-recurrent short runs, BUT BB held due to marginal BP 11.MR- now mild by echo 03/01 s/p mitral valve e-clip Recc: -Tele -Continue antiplatelet agents as patient will comply, refused again today -Contineu lasix diuresis/aldactone and follow volume status with likely change in lasix to PO tomorrow/at time of d/c -Continue BB/ARB(both doses decreased to allow patient to tolerate)aldactone/digoxin/imdur as patient will take/comply -follow for recurrent arrythmias which patient has not had -ok for d/c planning from cardiac standpoint at this time with outpatient f/u Consultation Date/Type/Reason Admit Date/Time Apr 13, 2019 at 22:46 Initial Consult Date 04/14/19 Type of Consult Cardiology Reason for Consultation CHF/cardiomyopathy Requesting Provider: PEDRO KRUSE MD Date/Time of Note DATE: 04/22/19 TIME: 13:01 Exam/Review of Systems Vital Signs Vitals Vital Signs Date Temp Pulse Resp B/P (MAP) Pulse Ox O2 O2 Flow FiO2 Time Delivery Rate 04/22/19 98 12:53 04/22/19 98.2 18 99/54 (69) 95 Room Air 11:24 04/21/19 21 21:00 Intake and Output 04/21/19 04/21/19 04/22/19 1515:00 23:00 07:00 IntakeIntake Total 780 ml OutputOutput Total 300 ml BalanceBalance 480 ml Exam Exam Review of Systems: CONSTITUTIONAL: No fevers, chills. PULMONARY: No sob CARDIOVASCULAR:c/o constant chest pain at rest GASTROINTESTINAL: No nausea/vomiting. GENITOURINARY: No hematuria/dysuria. MUSCULOSKELETAL: No myagias/arthalgias. PSYCHIATRIC: The patient denies depression. NEUROLOGIC: No weakness Constitutional: alert Psych: no complaints Head: normocephalic ENMT: mucosa pink and moist Neck: supple, jvd (9 cm water) Respiratory: diminished breath sounds (at bases/B) Cardiovascular: regular rate and rhythm Gastrointestinal: soft Musculoskeletal: muscle weakness (generalized) Extremities: edema (none) 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: other (No focal deficits) Labs Result Diagram: 04/19/19 0748 04/19/19 0748 Medications Medications Current Medications Acetaminophen (Tylenol Tab) 500 mg Q8 PRN PO temp. more then 99F Last administered on 04/18/19 15:14; Admin Dose 500 MG; Start 04/14/19 at 00:30 Albuterol (Proventil 0.083% (Neb)) 2.5 mg Q8H RESP THERAPY HHN Last administered on 04/19/19at 00:14; Admin Dose 2.5 MG; Start 04/14/19 at 08:00 Aspirin (Aspirin) 81 mg DAILY PO Last administered on 04/22/19 10:57; Admin Dose 81 MG; Start 04/14/19 at 09:00 Clopidogrel Bisulfate (plaVIX) 75 mg DAILY PO Last administered on 04/22/19 10:58; Admin Dose 75 MG; Start 04/14/19 at 09:00 Digoxin (Digoxin) 0.125 mg DAILY@1300 PO Last administered on 04/21/19 13:19; Admin Dose 0.125 MG; Start 04/14/19 at 13:00 Folic Acid (Folic Acid) 1 mg DAILY PO Last administered on 04/22/19 10:59; Ad min Dose 1 MG; Start 04/14/19 at 09:00 Albuterol/ Ipratropium (Duoneb) 3 ml Q4H RESP THERAPY PRN HHN SHORTNESS OF BREATH; Start 04/14/19 at 00:30 Isosorbide Mononitrate (Imdur) 30 mg DAILY PO Last administered on 04/22/19 10:59; Admin Dose 30 MG; Start 04/14/19 at 09:00 Levothyroxine Sodium (Synthroid) 125 mcg BEFORE BREAKFAST PO Last administered on 04/22/19 05:40; Admin Dose 125 MCG; Start 04/14/19 at 07:00 Lorazepam (Ativan) 0.5 mg Q8 PRN PO ANXIETY Last administered on 04/17/19 22:38; Admin Dose 0.5 MG; Start 04/14/19 at 00:30 Magnesium Oxide (Mag-Ox 400) 400 mg DAILY PO Last administered on 04/22/19 10:58; Admin Dose 400 MG; Start 04/14/19 at 09:00 Megestrol Acetate (Megace) 40 mg BID PO Last administered on 04/22/19 10:58; Admin Dose 40 MG; Start 04/14/19 at 00:30 Ondansetron HCl (Zofran Tab) 4 mg Q6H PRN PO nausea/vomiting Last administered on 04/14/19 21:44; Admin Dose 4 MG; Start 04/14/19 at 00:30 Potassium Chloride (Micro-K) 8 meq DAILY PO Last administered on 04/22/19 10:58; Admin Dose 8 MEQ; Start 04/14/19 at 09:00 Spironolactone (Aldactone) 25 mg DAILY PO Last administered on 04/22/19 10:58; Admin Dose 25 MG; Start 04/14/19 at 09:00 Fenofibrate (Tricor) 145 mg DAILY PO Last administered on 04/22/19 10:58; Admin Dose 145 MG; Start 04/14/19 at 09:00 Morphine Sulfate (morphine) 1 mg Q4H PRN IV SEVERE PAIN LEVEL 7-10 Last administered on 04/17/19 20:06; Admin Dose 1 MG; Start 04/14/19 at 00:30 Zolpidem Tartrate (Ambien) 10 mg HS PRN PO INSOMNIA Last administered on 04/21/19 23:15; Admin Dose 10 MG; Start 04/14/19 at 14:30 Furosemide (Lasix) 40 mg BID DIURETICS IV Last administered on 04/22/19 05:38; Admin Dose 40 MG; Start 04/15/19 at 18:00 Enoxaparin Sodium (Lovenox) 40 mg DAILY SC Last administered on 04/22/19 11:05; Admin Dose 40 MG; Start 04/18/19 at 09:00 Metoprolol Succinate (Toprol Xl) 25 mg DAILY PO Last administered on 04/22/19 10:59; Admin Dose 25 MG; Start 04/19/19 at 09:00 Losartan Potassium (Cozaar) 25 mg DAILY PO Last administered on 04/22/19 10:58; Admin Dose 25 MG; Start 04/19/19 at 15:00 Acetaminophen (Tylenol Tab) 650 mg Q4H PRN PO NON-CARDIAC PAIN LEVEL (1-3) Last administered on 04/21/19 13:19; Admin Dose 650 MG; Start 04/19/19 at 12:00 Al Hydrox/Mg Hydrox/Simethicone (Mag-Al Plus) 30 ml Q4H PRN PO GASTROINTESTINAL UPSET; Start 04/19/19 at 12:00 Ondansetron HCl (Zofran Inj) 4 mg Q4H PRN IV NAUSEA AND/OR VOMITING; Start 04/19/19 at 12:00 Dimethicone (Blistex Lip [place]) 1 applic Q2H PRN TOP DRY LIPS; Start 04/19/19 at 15:30 Lidocaine (Lidoderm) 1 patch DAILY TD Last administered on 04/22/19 11:01; Admin Dose 1 PATCH; Start 04/20/19 at 09:30 Lansoprazole (Prevacid) 30 mg DAILY@06 PO Last administered on 04/22/19 05:35; Admin Dose 30 MG; Start 04/21/19 at 06:00 ARIEL HOBBS Apr 22, 2019 13:04
--- NOTE | 2019-04-22 13:53 | CONS ---
DATE OF ADMISSION: 04/13/2019 DATE OF CONSULTATION: 04/22/2019 REASON FOR CONSULTATION: Consideration of radiation therapy for dysphagia. HISTORY OF PRESENT ILLNESS: The patient is a 73-year-old female who was apparently initially diagnos ed with stage IV Hodgkin's lymphoma in 2012 with lymphadenopathy above and below the diaphragm and a bone marrow biopsy that was positive on 02/25/2013. At presentation she also had complained of fever s, itching and shortness of breath. She was initially managed with ABVD and did sustain a PET negati ve complete response. She was well until 2016 when she developed right supraclavicular lymphadenopat hy as well as shortness of breath, fatigue, fevers, chills and itching. Repeat imaging again led to the identification of extensive lymphadenopathy above and below the diaphragm. She was counseled on various salvage regimens but received ABVD chemotherapy x4 again. My understanding is that she subse quently developed congestive heart failure. She was evaluated by Dr. Andrés Lutz in June 2017 at t he time of second relapse based on PET scan. At that time, her ejection fraction was down to 20% to 25%. Recommendations were given and she subsequently did receive a Keytruda and brentuximab from to 09/01/[address] Forde. She has had issues with dysphagia in the past and on 04/03/2018 she had undergone an esophagram/bariu m swallow with findings consistent with deviation of the esophagus to the left with mild narrowing an d contour irregularity in the lower cervical and proximal thoracic esophagus. Findings were felt to possibly reflect abnormalities of the esophagus and a mucosal mass could not be excluded. It does no t appear she underwent subsequent endoscopy. My understanding is she did receive her last chemotherapy with Dr. Lakhani in December or January. R ecently, she has been complaining of recurrent pain and difficulty swallowing solids and to some degr ee liquids. She apparently had a recent CT PET scan ordered by Dr. Will, but I do not have tho se results. She denies any fevers, chills or sweats at this time. Her other issue is recurrent jose estive heart failure causing shortness of breath. PAST MEDICAL HISTORY: Stroke in 2016, with residual facial drooling, left facial weakness and slurre d speech, dysphagia and mild upper extremity weakness, mostly corrected. severe mitral valve regurgi tation, coronary artery disease status post stenting x3, history of PR, history of CHF, history of re spiratory distress. Anxiety and depression. Urinary incontinence. Hypertension. Hypothyroidism. PAST SURGICAL HISTORY: AICD placement in 2017. ALLERGIES TO MEDICATIONS: None. CURRENT MEDICATIONS: 1. Digoxin. 2. Aspirin. 3. Plavix. 4. Losartan. 5. Albuterol. 6. Lasix. 7. Pantoprazole 8. Metoprolol. 9. Morphine sulfate. 10. Fenofibrate. 11. Aldactone. 12. Megace. 13. Isosorbide. 14. Losartan/hydrochlorothiazide. 15. Aspirin. 16. Levothyroxine. 17. Nexium. 18. Lorazepam. ALLERGIES: POSSIBLE ALLERGY TO VANCOMYCIN. SOCIAL HISTORY: Denies tobacco or alcohol use. She does live with her son. REVIEW OF SYSTEMS: GENERAL: No current fevers, chills or sweats. ENT: No otalgia or hoarseness. Dysphagia as noted. RESPIRATORY: Mild dyspnea with exertion and shortness of breath. No cough or hemoptysis. HEART: As above. She is status post placement of AICD in August 2018 and mitral valve pinning more recently. GASTROINTESTINAL: No nausea, vomiting, abdominal pain, diarrhea, rectal bleeding. GENITOURINARY: No dysuria, hematuria. She does admit to incontinence. ENDOCRINE: No history of diabetes. She is hypothyroid. SKIN: No history of lupus, scleroderma or shingles. MUSCULOSKELETAL: Denies back, hip or rib pain that is worsening. PHYSICAL EXAMINATION: GENERAL: Well-developed female in no distress. HEENT: Normocephalic, atraumatic. Sclerae anicteric. Oral cavity without mucositis or thrush. NECK: No palpable cervical, supraclavicular or axillary adenopathy. LUNGS: Clear without wheezes. ABDOMEN: Soft, nontender, without rebound or guarding. EXTREMITIES: Mild edema. MUSCULOSKELETAL: No spine or flank tenderness. ASSESSMENT AND PLAN: The patient is a 73-year-old female diagnosed in 2012 with stage IV Hodgkin's l ymphoma who has received multiple courses of systemic therapy for both initial presentation and recur rent disease. She was admitted with complaints of odynophagia and dysphagia of uncertain cause. A P ET scan was performed and the results are pending. PLAN: I am trying to retrieve the results of her PET scan to see if there is any dominant lymph node mass that could be causing her symptoms. If there was palliative radiotherapy could be considered. Alternatively, her symptoms could be due to a number of other etiologies and I have contacted Dr. Manpreet arauz and suggested GI evaluation for possible endoscopy. If we were to pursue radiotherapy, I would likely need to obtain authorization for treatment planning and delivery. I generally recommend the dose up to 3000 cGy in 10 fractions. Side effects could in clude fatigue, skin reaction, hoarseness, temporary pain, difficulty swallowing, nausea, vomiting and appetite loss. Appeared to be a small risk for esophageal stricture and pulmonary fibrosis as well. Thank you for allowing me to participate with her assessment. Dictated By: FIFI JACOBS/CECILIA Conf#: [id number] DID#: [id number] CC: PEDRO KRUSE MD;*EndCC*
== END 2019-04-22 15:56 | disposition home or self-care (01) | DRG 280 ==
LOC: E/R 19:31 → TEL 22:46
PROVIDERS: ADMIT Family Medicine; ATTEND Family Medicine
PROC: B211YZZ Fluoroscopy of Multiple Coronary Arteries using Other Contrast (ICD-10-PCS; 2019-04-19)
PROC: 4A023N7 Measurement of Cardiac Sampling and Pressure, Left Heart, Percutaneous Approach (ICD-10-PCS; principal; 2019-04-19 11:30)
DX: I21.A1 Myocardial infarction type 2 (principal); J18.9 Pneumonia, unspecified organism; I50.23 Acute on chronic systolic (congestive) heart failure; T82.855A Stenosis of coronary artery stent, initial encounter; I47.2 Ventricular tachycardia; N39.0 Urinary tract infection, site not specified; I11.0 Hypertensive heart disease with heart failure; Z95.5 Presence of coronary angioplasty implant and graft; Z91.14 Patient's other noncompliance with medication regimen; M53.1 Cervicobrachial syndrome; M53.0 Cervicocranial syndrome; G47.00 Insomnia, unspecified; R63.4 Abnormal weight loss; Z68.25 Body mass index [BMI] 25.0-25.9, adult; Z95.0 Presence of cardiac pacemaker; I69.992 Facial weakness following unspecified cerebrovascular disease; I69.991 Dysphagia following unspecified cerebrovascular disease; I69.934 Monoplegia of upper limb following unspecified cerebrovascular disease affecting left non-dominant side; I69.928 Other speech and language deficits following unspecified cerebrovascular disease; R13.10 Dysphagia, unspecified; R32 Unspecified urinary incontinence; J32.3 Chronic sphenoidal sinusitis; G31.9 Degenerative disease of nervous system, unspecified; D64.9 Anemia, unspecified; N95.9 Unspecified menopausal and perimenopausal disorder; M40.209 Unspecified kyphosis, site unspecified; M81.0 Age-related osteoporosis without current pathological fracture; F32.9 Major depressive disorder, single episode, unspecified; F43.20 Adjustment disorder, unspecified; Z85.71 Personal history of Hodgkin lymphoma; Z95.4 Presence of other heart-valve replacement; E78.5 Hyperlipidemia, unspecified; F41.9 Anxiety disorder, unspecified; I25.5 Ischemic cardiomyopathy; Z87.440 Personal history of urinary (tract) infections; K21.9 Gastro-esophageal reflux disease without esophagitis; I25.119 Atherosclerotic heart disease of native coronary artery with unspecified angina pectoris
CPT/HCPCS: 71045; 72040; 80048; 80053; 80061; 80162; 81001; 82550; 82553; 83690; 83735; 83880; 84443; 84484; 85025; 85378; 85610; 85730; 87086; 92526; 92610; 93005; 93458; 94640; 94664; 96374; C1769; C1887; J0456; J0696; J1644; J1650; J1940; J2250; J2270; J3010; J3475; J7030; J7040; Q9967

== ENCOUNTER 2019-05-27 10:04 | Inpatient (IN) | payer MEDICARE, OTHER ==
[~2019-05-27] VITALS: Ht 157.5 cm; Wt 57.7 kg
[~2019-05-27 10:04] MED LIST changes: +ACET118E PO; +LIDO700A45 TD; +MEGE40TA2 PO; +METO-335 PO; +NYST1000 PO; +SACU1TAB PO
[2019-05-27] MEDS ORDERED: SOD CHLORIDE 0.9% 1,000 ML IV STA (11:09)
[2019-05-27] MEDS ORDERED: morphine 4 MG/ML VIAL IV STA (11:09)
[2019-05-27] MEDS ORDERED: ONDANSETRON 4 MG INJ IV STA (11:09)
--- NOTE | 2019-05-27 13:08 | ERD ---
ER Documentation Chief Complaint Chief Complaint HEADACHE, EAR PAIN, SIDE PAIN, NOT EATING X2 WEEKS HPI This is a 73-year-old female with a past medical history of lymphoma. The lymphoma was initially diagnosed 8 years ago. She had been in remission but returned in 2017. She underwent chemo at that time. Her test engine evaluator oncolo gist is Dr. Lakhani. The patient presents to the emergency department today as she is complaining of the unilateral right-sided headache and right-sided neck pain. She indicates that this has been present for several months. They were seen by an ENT physician with no severe abnormal findings. The patient also saw her test engine evaluator oncologist and indicated that the symptoms are not a result of the lymphoma. The patient also sees a crown assembly machine set up mechanic Dr. Alvarez and has a history of congestive heart failure with an ejection fraction of 25 to 30%. The patient has undergone an MRI and CT imaging of her brain and neck for further evaluation into the symptoms with no acute emergent findings. She then was sent to a GI physician and placed on nystatin and Tylenol 3 with codeine she was also stating that she was complaining of difficulty eating. She is able to swallow but she states it hurts to swallow. Her son indicates that for the past 2 weeks she has had a very poor oral intake. She has no suicidal homicidal thoughts ideations. The patient had no fevers or shaking or chills. Her son states that she has had no hemoptysis no hematemesis no melanotic stools. She is had difficulty in sleeping. The patient is also been experiencing weight loss for several weeks. The patient denies any abdominal pain. No frequency urgency or dysuria. No productive or nonproductive cough. ROS All systems reviewed and are negative except as per history of present illness. Medications Home Meds Active Scripts Fenofibrate* (Fenofibrate*) 200 Mg Cap, 200 MG PO DAILY for 30 Days, #30 CAP Prov:PEDRO WHITAKER MD 09/16/18 Digoxin* (Lanoxin*) 0.125 Mg Tablet, 0.125 MG PO DAILY for 30 Days, #30 TAB Prov:PEDRO WHITAKER MD 09/16/18 Potassium Chloride* (Potassium Chloride*) 8 Meq Capsule.er, 8 MEQ PO DAILY for 30 Days, #30 CAP Prov:PEDRO WHITAKER MD 09/16/18 Isosorbide Mononitrate* (Isosorbide Mononitrate*) 30 Mg Tab.er.24h, 30 MG PO DAILY for 30 Days, #30 TAB Prov:PEDRO WHITAKER MD 09/16/18 Clopidogrel Bisulfate (Clopidogrel) 75 Mg Tablet, 75 MG PO DAILY, #30 TAB Prov:PEDRO WHITAKER MD 09/16/18 Folic Acid* (Folic Acid*) 1 Mg Tablet, 1 MG PO DAILY for 30 Days, #30 TAB Prov:PEDRO WHITAKER MD 09/16/18 Aspirin* (Aspirin* Chew) 81 Mg Tab.chew, 81 MG PO DAILY for 30 Days, #30 TAB.CHEW Prov:PEDRO WHITAKER MD 09/16/18 Reported Medications Nystatin (Nystatin) 100,000 Unit/1 Ml Oral.susp, 5 ML PO Q4, #60 ML 05/27/19 Acetaminophen with Codeine (Acetaminop-Codeine 120-12 mg/5) 118 Ml Solution, 5 ML PO Q4 for PAIN 05/27/19 Megestrol Acetate* (Megestrol Acetate*) 40 Mg Tablet, 40 MG PO TID for APPETITE, TAB 05/27/19 Furosemide* (Furosemide*) 40 Mg Tablet, 40 MG PO BID, TAB 05/27/19 Levothyroxine Sodium* (Levothyroxine Sodium*) 125 Mcg Tablet, 125 MCG PO BEFORE BREAKFAST, #30 TAB 02/11/19 Esomeprazole Mag Trihydrate (Nexium) 40 Mg Capsule.dr, 40 MG PO DAILY, #30 CAP 02/11/19 Magnesium Oxide* (Magnesium Oxide*) 400 Mg Tablet, 400 MG PO DAILY, TAB 02/11/19 Discontinued Reported Medications Lorazepam* (Lorazepam*) 0.5 Mg Tablet, 0.5 MG PO Q8 PRN for ANXIETY, TAB 02/11/19 Ondansetron Hcl* (Ondansetron Hcl*) 4 Mg Tablet, 4 MG PO Q6H PRN for nausea/vomiting, TAB 02/11/19 Ergocalciferol* (Drisdol* (Vitamin D2)) 50,000 Unit Capsule, 39776 UNIT PO Q7D for 30 Days, #4 CAP 08/04/16 Discontinued Scripts Ipratropium-Albuterol (Ipratropium-Albuterol) 0.5-3 Mg/3 Ml Ampul.neb, 3 ML HHN Q4H RESP THERAPY PRN for SHORTNESS OF BREATH for 30 Days, #90 Prov:PEDRO WHITAKER MD 09/16/18 Albuterol Sulfate* (Albuterol Sulfate* Neb) 0.083%-3 Ml Neb, 2.5 MG HHN Q8H RESP THERAPY for 90 Days, #90 CAP 2 Refills Prov:PEDRO WHITAKER MD 09/16/18 Furosemide* (Furosemide*) 40 Mg Tablet, 40 MG PO DAILY for 30 Days, #30 TAB Prov:PEDRO WHITAKER MD 09/16/18 Spironolactone* (Aldactone*) 25 Mg Tablet, 25 MG PO DAILY, #30 TAB Prov:PEDRO WHITAKER MD 09/16/18 Megestrol Acetate* (Megace*) 40 Mg Tab, 40 MG PO BID for 60 Days, #30 TAB Prov:PEDRO WHITAKER MD 09/16/18 Acetaminophen* (Tylenol*) 500 Mg Tab, 500 MG PO Q8 PRN for pain and temp. more then 99F for 30 Days, #90 TAB Prov:PEDRO WHITAKER MD 09/16/18 Metoprolol Tartrate* (Lopressor*) 50 Mg Tab, 50 MG PO BID, #60 TAB Prov:PEDRO WHITAKER MD 09/16/18 Losartan-Hydrochlorothiazide (Losartan-HCTZ) 100-25 Mg Tab, 1 TAB PO DAILY for 30 Days, #30 TAB Prov:PEDRO WHITAKER MD 09/16/18 Allergies Allergies: Coded Allergies: vancomycin (Verified Allergy, Mild, REDNESS AND ITCHING, 03/20/18) PMhx/Soc History of Surgery: Yes (rt eye cataract surgery) Anesthesia Reaction: No Hx 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 Disorder: No Hx Respiratory Disorders: Yes (PNA) Hx Cardiac Disorders: Yes (HTN, CAD, PTCA with stent; CHF; ) Hx Psychiatric Problems: No Hx Alcohol Use: No Hx Substance Use: No Hx Tobacco Use: No Smoking Status: Never smoker Physical Exam Vitals Vital Signs Date Temp Pulse Resp B/P (MAP) Pulse Ox O2 O2 Flow FiO2 Time Delivery Rate 05/27/19 98.9 90 16 120/65 98 Room Air 12:20 (83) 05/27/19 99.3 106 17 117/58 96 10:10 (77) Physical Exam Constitutional:Well-developed. Cachectic HEENT:Normocephalic. Atraumatic.Pupils were equal round reactive to light. Dry mucous membranes.No tonsillar exudates. Neck: No nuchal rigidity. No lymphadenopathy. No posterior cervical spine tenderness or step-offs. No expanding neck hematoma or abnormal findings of the neck examination Respiratory: Not using accessory muscles of respiration.Lungs were clear to auscultation bilaterally. No rhonchi. No rales. No wheezing. Cardiovascular: Regular rate regular rhythm.No murmurs. No rubs were appreciated.S1, S2 normal. Distal pulses are palpable 2+ bilaterally. GI: Abdomen was soft. Nontender. Non Distended. No pulsatile abdominal masses or bruits. No rebound. No guarding. Bowel sounds were present and normal. Muscle skeletal: Muscle atrophy of the bilateral lower extremities. Full range of motion of the upper extremities. Skin: No petechia, no purpura. No lesions on the palms or the soles of the feet. No maculopapular rash. NEURO: Patient was alert, awake, orientated x3. Patient refused to ambulate so gait was unobserved she stated she was too weak. She follows verbal command. Result Diagram: 05/27/19 1109 05/27/19 1228 Results 24 hrs Laboratory Tests Test 05/27/19 11:09 05/27/19 11:51 05/27/19 12:28 White Blood Count 9.2 10^3/ul Red Blood Count 4.76 10^6/ul Hemoglobin 12.8 g/dl Hematocrit 41.3 % Mean Corpuscular Volume 86.8 fl Mean Corpuscular Hemoglobin 26.9 pg Mean Corpuscular 31.0 g/dl Hemoglobin Concent Red Cell Distribution Width 20.0 % Platelet Count 198 10^3/UL Mean Platelet Volume 10.9 fl Immature Granulocytes % 0.300 % Neutrophils % 75.8 % Lymphocytes % 12.3 % Monocytes % 10.5 % Eosinophils % 0.8 % Basophils % 0.3 % Nucleated Red Blood Cells % 0.0 /100WBC Immature Granulocytes # 0.030 10^3/ul Neutrophils # 7.0 10^3/ul Lymphocytes # 1.1 10^3/ul Monocytes # 1.0 10^3/ul Eosinophils # 0.1 10^3/ul Basophils # 0.0 10^3/ul Nucleated Red Blood Cells # 0.0 10^3/ul POC Venous Lactate 1.1 mmol/L Prothrombin Time 13.9 Sec Prothrombin Time Ratio 1.1 INR International Normalized Ratio 1.06 Activated Partial Thromboplast 26.6 Sec Time Sodium Level 144 mmol/L Potassium Level 4.3 mmol/L Chloride Level 113 mmol/L Carbon Dioxide Level 21 mmol/L Anion Gap 10 Blood Urea Nitrogen 11 mg/dl Creatinine 0.67 mg/dl Est Glomerular Filtrat Rate mL/min mL/min Glucose Level 99 mg/dl Lactic Acid Level 1.1 mmol/L Calcium Level 9.7 mg/dl Total Bilirubin 0.5 mg/dl Direct Bilirubin 0.00 mg/dl Indirect Bilirubin 0.5 mg/dl Aspartate Amino Transf (AST/SGOT) 27 IU/L Alanine 22 IU/L Aminotransferase (ALT/SGPT) Alkaline Phosphatase 39 IU/L Troponin I Pending Total Protein 6.6 g/dl Albumin 3.7 g/dl Globulin 2.90 g/dl Albumin/Globulin Ratio 1.27 Amylase Level 44 U/L Lipase 80 U/L Current Medications Medications Dose Sig/Rafa Start Time Status Last (Trade) Ordered Route PRN Stop Time Admin Dose Reason Admin Sodium 1,000 ml @ Q1H STAT 05/27/19 DC 05/27/19 Chloride 1,000 mls/hr IV 11:09 11:37 05/27/19 12:08 Morphine 4 mg ONCE STAT 05/27/19 DC 05/27/19 Sulfate IV 11:09 11:39 (morphine) 05/27/19 11:12 Ondansetron 4 mg ONCE STAT 05/27/19 DC 05/27/19 HCl (Zofran IV 11:09 11:39 Inj) 05/27/19 11:12 Procedures/MDM This is a 73-year-old female with multiple comorbidities presented to the emergency department with dysphagia, weight loss and physical exam findings that it appeared to be a result of failure to thrive. The patient has a known history of Hodgkin's lymphoma. Her last hospitalization and admission was roughly 1 month ago with a significant work-up for the similar complaint. The patient did show signs of clinical dehydration with specific monitor continuous pulse oximetry and IV access was established by nursing staff. The patient was given a liter bolus of normal saline. Chest radiograph was obtained and there is no evidence of infiltrates to suggest pneumonia. 12 Lead EKG tracing ordered and reviewed by myself showed: Normal sinus rhythm of 88 bpm and no arrhythmia. CT interval normal. QRS duration normal. No ST segment elevation. Left atrial enlargement No ST segment depression. No changes consistent with acute ischemia. The patient has been experiencing dysphagia. There is no pooling of secretions within the oropharynx or signs the airway being compromised. She was given analgesic medication which included intravenous morphine and Zofran. Afterwards the patient refused an oral challenge she stated it was too difficult to swallow. Therefore at this time I was concerned with failure to thrive and severe dehydration. However the patient's lactic acid and renal function were within normal limits. The patient is on digoxin and I did level is currently pending. The patient will be admitted under the care of Dr. Whitaker in serious condition to the medical surgical floor. Departure Diagnosis: Primary Impression: Failure to thrive Failure to thrive age range: in adult Qualified Codes: R62.7 - Adult failure to thrive Additional Impression: Dysphagia Dysphagia type: unspecified Qualified Codes: R13.10 - Dysphagia, unspecified Condition: Serious CLEVELAND CHARLTON MD May 27, 2019 13:08
[2019-05-27] MEDS ORDERED: ONDANSETRON 4 MG INJ IV PRN (14:00)
[2019-05-27] MEDS ORDERED: ACETAMINOPHEN 325 MG TAB PO PRN (14:00)
[2019-05-27 16:40] VITALS: BP 140/78; PULSE 106; RESP 18; Ht 157.5 cm; Wt 57.7 kg
[2019-05-27] MEDS ORDERED: DIGOXIN 0.125 MG TAB PO SCH (18:30)
[2019-05-27] MEDS: FOLIC ACID 1 MG TAB PO SCH (18:56)
[2019-05-27] MEDS: FUROSEMIDE 40 MG TAB PO SCH (18:56)
[2019-05-27] MEDS: ASPIRIN 81 MG TAB PO SCH (18:56)
[2019-05-27] MEDS: CLOPIDOGREL 75 MG TAB PO SCH (18:57)
[2019-05-27] MEDS: ISOSORBIDE MONONITRATE(SR)30 MG TAB PO SCH (18:57)
[2019-05-27] MEDS: POTASSIUM CHLORIDE (SR) 8 MEQ CAP PO SCH (18:57)
[2019-05-27] MEDS: LIDOCAINE 5% PATCH TD SCH (18:59)
[2019-05-27] MEDS: MAGNESIUM OXIDE 400 MG TAB PO SCH (18:59)
[2019-05-27 20:00] VITALS: BP 121/73; PULSE 107; RESP 19
[2019-05-27] MEDS ORDERED: PENDING SANTYL ORDER FOR WOUND CARE XX PRN (20:00)
[2019-05-27] MEDS: NYSTATIN SUSP 5 ML CUP PO SCH (21:08)
[2019-05-27] MEDS: SACUBITRIL/VALSARTAN (24mg-26mg) TABLET PO SCH (21:08)
[2019-05-27] MEDS: MEGESTROL 40 MG TAB PO SCH (21:08)
[2019-05-27 23:35] VITALS: BP 112/56; PULSE 93; RESP 18
[2019-05-28] VITALS (7 sets, daily range): BP systolic 81–120; BP diastolic 49–62; PULSE 85–101; RESP 17–19
[2019-05-28] MEDS: NYSTATIN SUSP 5 ML CUP PO SCH ×6 (01:00→21:00)
[2019-05-28] MEDS: FUROSEMIDE 40 MG TAB PO SCH ×2 (05:17→17:52)
[2019-05-28] MEDS: LEVOTHYROXINE 125 MCG TAB PO SCH (06:42)
[2019-05-28] MEDS: SACUBITRIL/VALSARTAN (24mg-26mg) TABLET PO SCH ×2 (09:00→19:57)
[2019-05-28] MEDS: ISOSORBIDE MONONITRATE(SR)30 MG TAB PO SCH (09:00)
--- NOTE | 2019-05-28 09:21 | HP ---
Date/Time of Note Date/Time of Note DATE: 05/28/19 TIME: 09:08 Assessment/Plan VTE Prophylaxis Risk score (from Ns)>0 risk: 6 SCD applied (from Ns): No SCD contraindicated: other Pharmacological prophylaxis: LMWH Lines/Catheters IV C[facility]ter Type (from [facility] Peripheral IV Central line still needed: No Urinary Cath still in place: No Reason Cath still needed: urinary retention Assessment/Plan Assessment/Plan 1. Dysphagia. unable to eat. Unable to swallow most of the time. Regurgitating even saliva. On and off able to swallow. Severe decrease of voice with substernal pressure sensation severe respiratory distress with worsening of wheezing and inability to sleep. Unable to take medications due to above 2.IHD angina, new onset [place] by positive troponin series still high. Discussed with Dr. Alvarez. HX of recent PTCA with one stent and 3 balloon dilatation of narrow coronary arteries(; according to the daughter). Status post stapling of mitral valve 6 months ago in [facility] with improvement of condition immediately after the procedure but still she is having frequent hospita lizations. Although it is evident that the cause is not over drinking possibly medication noncompliance. Discussed with Dr. Alvarez. 3. Dysphagia to solids and sometimes to liquids now to everything. Refuses to eat secondary to pain.. Called Dr. matos [phone] for a ENT consultation. 4. Pulmonary edema by x-ray with wheezing on admission, improved after lasix. Ejection fraction was at 25-30 %. Improved. 5. History of Hodgkin lymphoma:. 6. Osteoarthritis with pain syndrome 7. Anxiety disorder. 8. Depression with grief reaction-s/p loss of . 9. Urinary incontinence. 10. Osteoporosis. 11. Kyphosis. 12. Postmenopausal syndrome. 13. Anemia with nl iron. 14. Brain atrophy on CT. 15. Left sphenoid sinusitis on CT. 16. Left ventricular hypertrophy. 17. Urinary incontinence with recurrent UTIs. Now with enterococcus species. 18.Cerebrovascular accident, with left facial drooling, left facial weakness, with slurred speech and dysphagia. Mild left upper extremity weakness. 19. Hypertension, now normotensive.Cardiomegaly on cxr 20. Status post left subclavian area pacemaker implantation about 3 months ago. 21. Status post mitral valve endocardial manipulation with stapling of the valves with good clinical results. 22. Recurrent episodes of V. tach now 8 complexes on a monitor and SVT; placed on the monitor but cardiology consult. 23.Weight loss mainly due to of not eating well. 24.Sleeplessness 25.Poor self expression capacity and getting worse. Talks for minutes but unable to conclude talk or be precise. 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 27. Weight loss 20.Medication noncompliance. Result Diagram: 05/27/19 1109 05/28/19 0512 Results 24hrs Laboratory Tests Test 05/27/19 11:09 05/27/19 11:51 05/27/19 12:24 05/27/19 12:28 White Blood Count 9.2 # Red Blood Count 4.76 Hemoglobin 12.8 Hematocrit 41.3 Mean Corpuscular 86.8 Volume Mean Corpuscular 26.9 L Hemoglobin Mean Corpuscular 31.0 L Hemoglobin Concent Red Cell 20.0 H Distribution Width Platelet Count 198 Mean Platelet Volume 10.9 H Immature 0.300 Granulocytes % Neutrophils % 75.8 Lymphocytes % 12.3 L Monocytes % 10.5 Eosinophils % 0.8 Basophils % 0.3 Nucleated Red Blood 0.0 Cells % Immature 0.030 Granulocytes # Neutrophils # 7.0 Lymphocytes # 1.1 Monocytes # 1.0 H Eosinophils # 0.1 Basophils # 0.0 Nucleated Red Blood 0.0 Cells # POC Venous Lactate 1.1 Phosphorus Level 3.7 Magnesium Level 2.0 Iron Level 52 Total Iron Binding 353 Capacity Percent Iron 15 L Saturation Digoxin Level 0.6 L Prothrombin Time 13.9 Prothrombin Time 1.1 Ratio INR International 1.06 Normalized Ratio Activated 26.6 Partial Thromboplast Time Sodium Level 144 Potassium Level 4.3 Chloride Level 113 H Carbon Dioxide Level 21 Anion Gap 10 Blood Urea Nitrogen 11 Creatinine 0.67 Est Glomerular Filtrat Rate mL/min Glucose Level 99 Lactic Acid Level 1.1 Calcium Level 9.7 Total Bilirubin 0.5 Direct Bilirubin 0.00 Indirect Bilirubin 0.5 Aspartate Amino 27 Transf (AST/SGOT) Alanine 22 Aminotransferase (AL T/SGPT) Alkaline Phosphatase 39 L Troponin I 0.025 Total Protein 6.6 Albumin 3.7 Globulin 2.90 Albumin/Globulin 1.27 Ratio Amylase Level 44 Lipase 80 Test 05/27/19 12:30 05/27/19 22:31 05/28/19 05:12 Erythrocyte 20 Sedimentation Rate Triglycerides Level 244 H Cholesterol Level 165 LDL Cholesterol, 97 Calculated HDL Cholesterol 19 L Cholesterol/HDL 8.6 Ratio Thyroid Stimulating 0.240 L Hormone (TSH) Troponin I 0.026 0.037 Sodium Level 144 Potassium Level 3.9 Chloride Level 112 H Carbon Dioxide Level 22 Anion Gap 10 Blood Urea Nitrogen 10 Creatinine 0.69 Est Glomerular Filtrat Rate mL/min Glucose Level 101 Calcium Level 9.7 Total Bilirubin 0.5 Direct Bilirubin 0.00 Indirect Bilirubin 0.5 Aspartate Amino 26 Transf (AST/SGOT) Alanine 23 Aminotransferase (AL T/SGPT) Alkaline Phosphatase 42 B-Type Natriuretic 5600 H Peptide Total Protein 6.8 Albumin 3.8 Globulin 3.00 Albumin/Globulin 1.26 Ratio HPI/ROS Admit Date/Time Admit Date/Time May 27, 2019 at 13:49 Hx of Present Illness History was taken from the son of patient due to of difficulty with patient to be able to talk. But the patient is able to express some thoughts and reports. For the last week she is unable to eat normally last 3 days she is totally unable to eat. But 5 to 7 days ago her voice got changed and now her voice is severely decreased in intensity. She is having the nausea and vomiting even saliva is difficult to swallow. She lost weight. He is having shortness of breath and palpitations. She was unable to take her medications. 1 week from now he was she was scheduled to undergo upper GI study in [facility]. I think it would be more prudent to complete the studies in the hospital while her condition is deteriorating. Denies fever and chills denies nausea vomiting. Expressed told that she does not want to leave she does not want any procedure. Discussed with the son decision was made to go ahead and do whatever feel reasonable and necessary. ROS Subjective hx not possible: pt critical Constitutional: fatigue, nausea, poor po, weight change (The son she lost at least 4 to 5 pounds during the last 2 weeks just because of not eating pro perly.); No no complaints, No improved, No chills, No diaphoresis, No disoriented, No febrile, No other Eyes: redness; No no complaints, No pain, No discharge, No visual change, No other ENT: congestion, dysphagia, sore throat Respiratory: cough, shortness of breath, sputum; No no complaints, No pain, No pleuritic pain, No wheezing, No other Cardiovascular: No no complaints, No chest pain, No edema, No lightheadedness, No orthopenea, No palpitations, No paroxysmal nocturnal dyspnea, No other Gastrointestinal: constipation, decreased appetite, flatus, nausea, vomiting Genitourinary: dysuria, flank pain Musculoskeletal: back pain, bone/joint pain; No no complaints, No neck pain, No restricted range of motion, No swelling, No other Skin: bruising, pruritis, rash, skin lesions; No no complaints, No erythema, No laceration, No other Neurologic: confusion, dizziness, headache Endocrine: dry skin; No no complaints, No polyuria, No polydypsia, No temp intolerance, No weight change, No other Psychological: nl mood/affect (depressed.), anxiety; No no complaints, No confusion, No depression, No suicidal, No other Immunologic: No no complaints, No immunodeficiency, No pruritis, No rhinitis, No urticaria, No other PMH/Family/Social Past Medical History Medical History: angina, congestive heart failure, coronary artery disease, diabetes, diverticulitis, GERD, GI bleed, high cholesterol, hypertension, hyperthyroid, hypothyroid, urinary tract infection Medications Current Medications Aspirin (Aspirin) 81 mg DAILY PO Last administered on 05/27/19 18:56; Admin Dose 81 MG; Start 05/27/19 at 18:30 Clopidogrel Bisulfate (plaVIX) 75 mg DAILY PO Last administered on 05/27/19 18:57; Admin Dose 75 MG; Start 05/27/19 at 18:30 Digoxin (Digoxin) 0.125 mg DAILY PO Last administered on 05/27/19 18:57; Admin Dose 0.125 MG; Start 05/27/19 at 18:30 Folic Acid (Folic Acid) 1 mg DAILY PO Last administered on 05/27/19 18:56; Ad min Dose 1 MG; Start 05/27/19 at 18:30 Furosemide (Lasix) 40 mg BID DIURETICS PO Last administered on 05/28/19 05:17; Admin Dose 40 MG; Start 05/27/19 at 18:14 Isosorbide Mononitrate (Imdur) 30 mg DAILY PO Last administered on 05/27/19 18:57; Admin Dose 30 MG; Start 05/27/19 at 18:30 Levothyroxine Sodium (Synthroid) 125 mcg BEFORE BREAKFAST PO ; Start 05/28/19 at 07:00 Magnesium Oxide (Mag-Ox 400) 400 mg DAILY PO Last administered on 05/27/19 18:59; Admin Dose 400 MG; Start 05/27/19 at 18:30 Megestrol Acetate (Megace) 40 mg TID PO Last administered on 05/27/19 21:08; Admin Dose 40 MG; Start 05/27/19 at 21:00 Nystatin (Nystatin Susp) 5 ml Q4 PO Last administered on 05/28/19 05:18; Admin Dose 5 ML; Start 05/27/19 at 21:00 Potassium Chloride (Micro-K) 8 meq DAILY PO Last administered on 05/27/19 18:57; Admin Dose 8 MEQ; Start 05/27/19 at 18:30 Sacubitril/ Valsartan (Entresto 24 Mg-26 Mg) 1 tab BID PO Last administered on 05/27/19 21:08; Admin Dose 1 TAB; Start 05/27/19 at 21:00 Ondansetron HCl (Zofran Inj) 4 mg Q4H PRN IV NAUSEA AND/OR VOMITING; Start 05/27/19 at 18:30 Acetaminophen (Tylenol Tab) 500 mg Q6H PRN PO MILD PAIN(1-3)OR ELEVATED TEMP; Start 05/27/19 at 18:30 Albuterol/ Ipratropium (Duoneb) 3 ml Q6H RESP THERAPY PRN HHN SHORTNESS OF BREATH; Start 05/27/19 at 18:30 Lidocaine (Lidoderm) 1 patch DAILY TD Last administered on 05/27/19 18:59; Admin Dose 1 PATCH; Start 05/27/19 at 18:30 Miscellaneous Information (Pending [facility] Order For Wound Care) This patient meyer... PRN PRN XX WOUND CARE; Start 05/27/19 at 20:00 Coded Allergies: vancomycin (Verified Allergy, Mild, REDNESS AND ITCHING, 03/20/18) Past Surgical History Past Surgical Hx: angioplasty Family History Significant Family History: no pertinent family hx, asthma, vascular disease Social History Alcohol Use: none Smoking Status: Never smoker Drug Use: none Exam/Review of Systems Vital Signs Vitals Vital Signs Date Temp Pulse Resp B/P (MAP) Pulse Ox O2 O2 Flow FiO2 Time Delivery Rate 05/28/19 98.1 97 18 91/51 (64) 97 07:45 05/27/19 Room Air 16:40 Intake and Output 05/27/19 05/27/19 05/28/19 1515:00 23:00 07:00 IntakeIntake Total 250 ml BalanceBalance 250 ml Exam Constitutional: alert, oriented, well developed, distress; No non-verbal, No frail, No other Psych: anxiety, depression; No no complaints, No nl mood/affect, No confusion, No suicidal, No other Head: normocephalic, atraumatic; No lacerations, No hematomas, No other Eyes: EOMI, nl lids, PERRL; No nl conjunctiva, No nl sclera, No icteric, No fundi, disc, No other ENMT: nl external ears & nose (Decreased hearing with sclerotic tympanic membranes.), nl nasal mucosa & septum (Narrow.), tympanic membranes; No nl lips & teeth, No mucosa pink and moist, No intubated, No other Neck: No supple, No non-tender, No jvd, No bruits, No masses, No thyromegaly, No nuchal rigidity, No other Respiratory: crackles/rales, diminished breath sounds, respirations; No clear to auscultation, No normal air movement, No congested cough, No intercostal retraction, No labored breathing, No tactile fremitus, No wheezing, No other Cardiovascular: regular rate and rhythm, bruits, edema, jugular venous distention (JVD) (Nonpitting mild pitting) Gastrointestinal: soft, non-tender, bowel sounds; No nl liver, spleen, No ascites, No distended, No firm, No hepatomegaly, No mass, No rebound or guarding, No splenomegaly, No surgical scars, No tender, No other Genitourinary - Female: nl adnexae, nl external genitalia; No CMT, No CVA tenderness, No uterus, No other Musculoskeletal: joint tenderness, muscle tone, muscle weakness; No nl extremities to inspection, No nl gait and stance, No range of motion, No spine non-tender, No swelling, No other Extremities: No normal pulses, No calf tenderness, No cyanosis, No clubbing, No edema, No pitting pedal edema, No palpable cord, No tenderness, No other 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: BUSINESS PROCESS MODELER II-XII intact, lethargic, numbness; No nl mental status, No nl speech, No nl strength, No confused, No DTR's symm etric, No focal weakness, No reflexes, No unresponsive, No other Skin: rash or lesions, ecchymosis; No nl turgor, No diaphoresis, No laceration, No puncture, No other PEDRO KRUSE MD May 28, 2019 09:19
[2019-05-28] MEDS: CLOPIDOGREL 75 MG TAB PO SCH (09:39)
[2019-05-28] MEDS: ASPIRIN 81 MG TAB PO SCH (09:39)
[2019-05-28] MEDS: POTASSIUM CHLORIDE (SR) 8 MEQ CAP PO SCH (09:39)
[2019-05-28] MEDS: ACETAMINOPHEN 500 MG TAB PO PRN ×2 (09:40→19:57)
[2019-05-28] MEDS: MAGNESIUM OXIDE 400 MG TAB PO SCH (09:40)
[2019-05-28] MEDS: FOLIC ACID 1 MG TAB PO SCH (09:40)
[2019-05-28] MEDS: MEGESTROL 40 MG TAB PO SCH ×3 (09:40→19:57)
[2019-05-28] MEDS: LIDOCAINE 5% PATCH TD SCH (09:41)
[2019-05-28] MEDS: DIGOXIN 0.125 MG TAB PO SCH (13:01)
--- NOTE | 2019-05-28 16:25 | CONS ---
Assessment/Plan Assessment/Plan Hospital Course (Demo Recall) Hodgkin lymphoma- s/p chemotherapy PT HAS HX PROGRESSIVE REFRACTOPY DIS POST CHEMO AMD IMMUNOTHERAPY, MOST RECENT PET/CT SHOWED SOME IMPROVEMENT DYSPHAGIA GO EVAL Anemia WITH COMPONENT ACD monitor Severe respiratory distress improving. HX IHD angina, Low LVEF dropped. Findings most consistent with mild ADHF with associated type II NSTEMI HX Pulmonary edema Osteoarthritis with pain syndrome Anxiety disorder. Depression with grief reaction-s/p loss of . Urinary incontinence. Osteoporosis. Kyphosis. Postmenopausal syndrome. Brain atrophy on CT. Left sphenoid sinusitis on CT. Left ventricular hypertrophy. Urinary incontinence. Cerebrovascular accident, with left facial drooling, left facial weakness, with slurred speech and dysphagia. Mild left upper extremity weakness.mostly corrected. Hypertension, now normotensive. HX of PTCA with one sent and 3 balloon dilatation of narrow coronary arteries(; Medication noncompliance. Consultation Date/Type/Reason Admit Date/Time May 27, 2019 at 13:49 Date of Consultation: May 27, 2019 Type of Consult HEMEON Reason for Consultation HD, ANEMIA Requesting Provider: PEDRO KRUSE MD Date/Time of Note DATE: 05/28/19 TIME: 16:24 Hx of Present Illness PT IS AN ELDERLY FEMALE WITH HX HD, POST MULTIPLE LINES OF TREATMENT, PRESENTED WITH DYSPHAGIA AND WT LOSS For the last week she is unable to eat normally last 3 days she is totally unable to eat. But 5 to 7 days ago her voice got changed and now her voice is severely decreased in intensity. She is having the nausea and vomiting even saliva is difficult to swallow. She lost weight. He is having shortness of breath and palpitations. She was unable to take her medications. 1 week from now he was she was scheduled to undergo upper GI study in [facility]. PT WAS ADMITTED FOR FURTHER EVAL Denies fever and chills denies nausea vomiting. she does not want any procedure. Discussed with the son decision was made to go ahead and do whatever feel reasonable and necessary. ROS Subjective hx not possible: pt critical Constitutional: fatigue, nausea, poor po, weight change (The son she lost at least 4 to 5 pounds during the last 2 weeks just because of not eating properly.); No no complaints, No improved, No chills, No diaphoresis, No disoriented, No febrile, No other Eyes: redness; No no complaints, No pain, No discharge, No visual change, No other ENT: congestion, dysphagia, sore throat Respiratory: cough, shortness of breath, sputum; No no complaints, No pain, No pleuritic pain, No wheezing, No other Cardiovascular: No no complaints, No chest pain, No edema, No lightheadedness, No orthopenea, No palpitations, No paroxysmal nocturnal dyspnea, No other Gastrointestinal: constipation, decreased appetite, flatus, nausea, vomiting Genitourinary: dysuria, flank pain Musculoskeletal: back pain, bone/joint pain; No no complaints, No neck pain, No restricted range of motion, No swelling, No other Skin: bruising, pruritis, rash, skin lesions; No no complaints, No erythema, No laceration, No other Neurologic: confusion, dizziness, headache Endocrine: dry skin; No no complaints, No polyuria, No polydypsia, No temp intolerance, No weight change, No other Psychological: nl mood/affect (depressed.), anxiety; No no complaints, No confusion, No depression, No suicidal, No other Immunologic: No no complaints, No immunodeficiency, No pruritis, No rhinitis, No urticaria, No other PMH/Family/Social Past Medical History Medical History: angina, congestive heart failure, coronary artery disease, diabetes, diverticulitis, GERD, GI bleed, high cholesterol, hypertension, hyperthyroid, hypothyroid, urinary tract infection Medications Current Medications Aspirin (Aspirin) 81 mg DAILY PO Last administered on 05/27/19 18:56; Admin Dose 81 MG; Start 05/27/19 at 18:30 Clopidogrel Bisulfate (plaVIX) 75 mg DAILY PO Last administered on 05/27/19 18:57; Admin Dose 75 MG; Start 05/27/19 at 18:30 Digoxin (Digoxin) 0.125 mg DAILY PO Last administered on 05/27/19 18:57; Admin Dose 0.125 MG; Start 05/27/19 at 18:30 Folic Acid (Folic Acid) 1 mg DAILY PO Last administered on 05/27/19 18:56; Admin Dose 1 MG; Start 05/27/19 at 18:30 Furosemide (Lasix) 40 mg BID DIURETICS PO Last administered on 05/28/19 05:17; Admin Dose 40 MG; Start 05/27/19 at 18:14 Isosorbide Mononitrate (Imdur) 30 mg DAILY PO Last administered on 05/27/19 18:57; Admin Dose 30 MG; Start 05/27/19 at 18:30 Levothyroxine Sodium (Synthroid) 125 mcg BEFORE BREAKFAST PO ; Start 05/28/19 at 07:00 Magnesium Oxide (Mag-Ox 400) 400 mg DAILY PO Last administered on 05/27/19 18:59; Admin Dose 400 MG; Start 05/27/19 at 18:30 Megestrol Acetate (Megace) 40 mg TID PO Last administered on 05/27/19 21:08; Admin Dose 40 MG; Start 05/27/19 at 21:00 Nystatin (Nystatin Susp) 5 ml Q4 PO Last administered on 05/28/19 05:18; Admin Dose 5 ML; Start 05/27/19 at 21:00 Potassium Chloride (Micro-K) 8 meq DAILY PO Last administered on 05/27/19 18:57; Admin Dose 8 MEQ; Start 05/27/19 at 18:30 Sacubitril/ Valsartan (Entresto 24 Mg-26 Mg) 1 tab BID PO Last administered on 05/27/19 21:08; Admin Dose 1 TAB; Start 05/27/19 at 21:00 Ondansetron HCl (Zofran Inj) 4 mg Q4H PRN IV NAUSEA AND/OR VOMITING; Start 05/27/19 at 18:30 Acetaminophen (Tylenol Tab) 500 mg Q6H PRN PO MILD PAIN(1-3)OR ELEVATED TEMP; Start 05/27/19 at 18:30 Albuterol/ Ipratropium (Duoneb) 3 ml Q6H RESP THERAPY PRN HHN SHORTNESS OF BREATH; Start 05/27/19 at 18:30 Lidocaine (Lidoderm) 1 patch DAILY TD Last administered on 05/27/19 18:59; Admin Dose 1 PATCH; Start 05/27/19 at 18:30 Miscellaneous Information (Pending [facility] Order For Wound Care) This patient meyer... PRN PRN XX WOUND CARE; Start 05/27/19 at 20:00 Coded Allergies: vancomycin (Verified Allergy, Mild, REDNESS AND ITCHING, 03/20/18) Past Surgical History Past Surgical Hx: angioplasty Family History Significant Family History: no pertinent family hx, asthma, vascular disease Social History Alcohol Use: none Smoking Status: Never smoker Drug Use: none Past Medical History Medical History: angina, congestive heart failure, coronary artery disease, diabetes, diverticulitis, GERD, GI bleed, high cholesterol, hypertension, hyperthyroid, hypothyroid, urinary tract infection Home Meds Active Scripts Fenofibrate* (Fenofibrate*) 200 Mg Cap, 200 MG PO DAILY for 30 Days, #30 CAP Prov:PEDRO KRUSE MD 09/16/18 Digoxin* (Lanoxin*) 0.125 Mg Tablet, 0.125 MG PO DAILY for 30 Days, #30 TAB Prov:PEDRO KRUSE MD 09/16/18 Potassium Chloride* (Potassium Chloride*) 8 Meq Capsule.er, 8 MEQ PO DAILY for 30 Days, #30 CAP Prov:PEDRO KRUSE MD 09/16/18 Isosorbide Mononitrate* (Isosorbide Mononitrate*) 30 Mg Tab.er.24h, 30 MG PO DAILY for 30 Days, #30 TAB Prov:PEDRO KRUSE MD 09/16/18 Clopidogrel Bisulfate (Clopidogrel) 75 Mg Tablet, 75 MG PO DAILY, #30 TAB Prov:PEDRO KRUSE MD 09/16/18 Folic Acid* (Folic Acid*) 1 Mg Tablet, 1 MG PO DAILY for 30 Days, #30 TAB Prov:PEDRO KRUSE MD 09/16/18 Aspirin* (Aspirin* Chew) 81 Mg Tab.chew, 81 MG PO DAILY for 30 Days, #30 TAB.CHEW Prov:PEDRO KRUSE MD 09/16/18 Reported Medications Nystatin (Nystatin) 100,000 Unit/1 Ml Oral.susp, 5 ML PO Q4, #60 ML 05/27/19 Acetaminophen with Codeine (Acetaminop-Codeine 120-12 mg/5) 118 Ml Solution, 5 ML PO Q4 for PAIN 05/27/19 Megestrol Acetate* (Megestrol Acetate*) 40 Mg Tablet, 40 MG PO TID for APPETITE, TAB 05/27/19 Furosemide* (Furosemide*) 40 Mg Tablet, 40 MG PO BID, TAB 05/27/19 Levothyroxine Sodium* (Levothyroxine Sodium*) 125 Mcg Tablet, 125 MCG PO BEFORE BREAKFAST, #30 TAB 02/11/19 Esomeprazole Mag Trihydrate (Nexium) 40 Mg Capsule.dr, 40 MG PO DAILY, #30 CAP 02/11/19 Magnesium Oxide* (Magnesium Oxide*) 400 Mg Tablet, 400 MG PO DAILY, TAB 02/11/19 Medications Current Medications Aspirin (Aspirin) 81 mg DAILY PO Last administered on 05/28/19 09:39; Admin Dose 81 MG; Start 05/27/19 at 18:30 Clopidogrel Bisulfate (plaVIX) 75 mg DAILY PO Last administered on 05/28/19 09:39; Admin Dose 75 MG; Start 05/27/19 at 18:30 Folic Acid (Folic Acid) 1 mg DAILY PO Last administered on 05/28/19 09:40; Admin Dose 1 MG; Start 05/27/19 at 18:30 Furosemide (Lasix) 40 mg BID DIURETICS PO Last administered on 05/28/19 05:17; Admin Dose 40 MG; Start 05/27/19 at 18:14 Isosorbide Mononitrate (Imdur) 30 mg DAILY PO Last administered on 05/27/19at 18:57; Admin Dose 30 MG; Start 05/27/19 at 18:30 Levothyroxine Sodium (Synthroid) 125 mcg BEFORE BREAKFAST PO ; Start 05/28/19 at 07:00 Magnesium Oxide (Mag-Ox 400) 400 mg DAILY PO Last administered on 05/28/19 09:40; Admin Dose 400 MG; Start 05/27/19 at 18:30 Megestrol Acetate (Megace) 40 mg TID PO Last administered on 05/28/19 09:40; Admin Dose 40 MG; Start 05/27/19 at 21:00 Nystatin (Nystatin Susp) 5 ml Q4 PO Last administered on 05/28/19 05:18; Admin Dose 5 ML; Start 05/27/19 at 21:00 Potassium Chloride (Micro-K) 8 meq DAILY PO Last administered on 05/28/19 09:39; Admin Dose 8 MEQ; Start 05/27/19 at 18:30 Sacubitril/ Valsartan (Entresto 24 Mg-26 Mg) 1 tab BID PO Last administered on 05/27/19 21:08; Admin Dose 1 TAB; Start 05/27/19 at 21:00 Ondansetron HCl (Zofran Inj) 4 mg Q4H PRN IV NAUSEA AND/OR VOMITING; Start at 18:30 Acetaminophen (Tylenol Tab) 500 mg Q6H PRN PO MILD PAIN(1-3)OR ELEVATED TEMP Last administered on 05/28/19at 09:40; Admin Dose 500 MG; Start 05/27/19 at 18:30 Albuterol/ Ipratropium (Duoneb) 3 ml Q6H RESP THERAPY PRN HHN SHORTNESS OF BREATH; Start 05/27/19 at 18:30 Lidocaine (Lidoderm) 1 patch DAILY TD Last administered on 05/28/19at 09:41; Admin Dose 1 PATCH; Start 05/27/19 at 18:30 Miscellaneous Information (Pending [facility] Order For Wound Care) This patient meyer... PRN PRN XX WOUND CARE; Start 05/27/19 at 20:00 Digoxin (Digoxin) 0.125 mg DAILY@1300 PO Last administered on 05/28/19at 13:01; Admin Dose 0.125 MG; Start 05/28/19 at 13:00 Allergies: Coded Allergies: vancomycin (Verified Allergy, Mild, REDNESS AND ITCHING, 03/20/18) Past Surgical History Past Surgical Hx: angioplasty Social History Alcohol Use: none Smoking Status: Never smoker Drug Use: none Exam/Review of Systems Exam Vitals Vital Signs Date Temp Pulse Resp B/P (MAP) Pulse Ox O2 O2 Flow FiO2 Time Delivery Rate 05/28/19 97.8 89 17 96/54 (68) 99 15:34 05/27/19 Room Air 16:40 Intake and Output 05/27/19 05/27/19 05/28/19 1515:00 23:00 07:00 IntakeIntake Total 250 ml BalanceBalance 250 ml Exam Constitutional: alert, oriented, well developed Psych: no complaints, nl mood/affect Head: normocephalic, atraumatic Eyes: nl conjunctiva, EOMI, nl lids, nl sclera, PERRL ENMT: nl external ears & nose, nl lips & teeth, nl nasal mucosa & septum Neck: supple, non-tender Respiratory: clear to auscultation, normal air movement Cardiovascular: regular rate and rhythm, nl pulses Gastrointestinal: soft, nl liver, spleen, non-tender Musculoskeletal: nl extremities to inspection, nl gait and stance Extremities: normal pulses 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: PIPE MAKER II-XII intact, nl mental status, nl speech, nl strength Skin: nl turgor; No rash or lesions Lymph: nl lymph nodes Results Result Diagram: 05/27/19 1109 05/28/19 0512 Results 24hrs Laboratory Tests Test 05/27/19 22:31 05/28/19 05:12 05/28/19 07:05 Troponin I 0.026 0.037 Sodium Level 144 Potassium Level 3.9 Chloride Level 112 H Carbon Dioxide Level 22 Anion Gap 10 Blood Urea Nitrogen 10 Creatinine 0.69 Est Glomerular Filtrat Rate mL/min Glucose Level 101 Calcium Level 9.7 Total Bilirubin 0.5 Direct Bilirubin 0.00 Indirect Bilirubin 0.5 Aspartate Amino Transf (AST/SGOT) 26 Alanine Aminotransferase (ALT/SGPT) 23 Alkaline Phosphatase 42 B-Type Natriuretic Peptide 5600 H Total Protein 6.8 Albumin 3.8 Globulin 3.00 Albumin/Globulin Ratio 1.26 Urine Color YELLOW Urine Clarity CLEAR Urine pH 5.0 Urine Specific Lapaz 1.010 Urine Ketones NEGATIVE Urine Nitrite NEGATIVE Urine Bilirubin NEGATIVE Urine Urobilinogen NEGATIVE Urine Leukocyte Esterase NEGATIVE Urine Microscopic RBC 1 Urine Microscopic WBC 3 Urine Bacteria FEW A Urine Mucus FEW A Urine Hemoglobin 1+ H Urine Glucose NEGATIVE Urine Total Protein NEGATIVE Medications Medication Current Medications Aspirin (Aspirin) 81 mg DAILY PO Last administered on 05/28/19at 09:39; Admin Dose 81 MG; Start 05/27/19 at 18:30 Clopidogrel Bisulfate (plaVIX) 75 mg DAILY PO Last administered on 05/28/19at 09:39; Admin Dose 75 MG; Start 05/27/19 at 18:30 Folic Acid (Folic Acid) 1 mg DAILY PO Last administered on 05/28/19at 09:40; Admin Dose 1 MG; Start 05/27/19 at 18:30 Furosemide (Lasix) 40 mg BID DIURETICS PO Last administered on 05/28/19at 05:17; Admin Dose 40 MG; Start 05/27/19 at 18:14 Isosorbide Mononitrate (Imdur) 30 mg DAILY PO Last administered on 05/27/19at 18:57; Admin Dose 30 MG; Start 05/27/19 at 18:30 Levothyroxine Sodium (Synthroid) 125 mcg BEFORE BREAKFAST PO ; Start 05/28/19 at 07:00 Magnesium Oxide (Mag-Ox 400) 400 mg DAILY PO Last administered on 05/28/19 09:40; Admin Dose 400 MG; Start 05/27/19 at 18:30 Megestrol Acetate (Megace) 40 mg TID PO Last administered on 05/28/19 09:40; Admin Dose 40 MG; Start 05/27/19 at 21:00 Nystatin (Nystatin Susp) 5 ml Q4 PO Last administered on 05/28/19 05:18; Admin Dose 5 ML; Start 05/27/19 at 21:00 Potassium Chloride (Micro-K) 8 meq DAILY PO Last administered on 05/28/19 09:39; Admin Dose 8 MEQ; Start 05/27/19 at 18:30 Sacubitril/ Valsartan (Entresto 24 Mg-26 Mg) 1 tab BID PO Last administered on 05/27/19 21:08; Admin Dose 1 TAB; Start 05/27/19 at 21:00 Ondansetron HCl (Zofran Inj) 4 mg Q4H PRN IV NAUSEA AND/OR VOMITING; Start 05/27/19 at 18:30 Acetaminophen (Tylenol Tab) 500 mg Q6H PRN PO MILD PAIN(1-3)OR ELEVATED TEMP Last administered on 05/28/19 09:40; Admin Dose 500 MG; Start 05/27/19 at 18:30 Albuterol/ Ipratropium (Duoneb) 3 ml Q6H RESP THERAPY PRN HHN SHORTNESS OF BREATH; Start 05/27/19 at 18:30 Lidocaine (Lidoderm) 1 patch DAILY TD Last administered on 05/28/19 09:41; Admin Dose 1 PATCH; Start 05/27/19 at 18:30 Miscellaneous Information (Pending [facility] Order For Wound Care) This patient meyer... PRN PRN XX WOUND CARE; Start 05/27/19 at 20:00 Digoxin (Digoxin) 0.125 mg DAILY@1300 PO Last administered on 05/28/19 13:01; Admin Dose 0.125 MG; Start 05/28/19 at 13:00 KALPANA ANGELES MD May 28, 2019 16:25
[2019-05-29] VITALS (7 sets, daily range): BP systolic 96–125; BP diastolic 56–82; PULSE 85–104; RESP 16–19
[2019-05-29] MEDS: NYSTATIN SUSP 5 ML CUP PO SCH ×6 (01:00→22:34)
--- NOTE | 2019-05-29 02:10 | CONS ---
DATE OF ADMISSION: 05/27/2019 DATE OF CONSULTATION: HISTORY OF PRESENT ILLNESS: Denny Gracia is a 73-year-old female with odynophagia and hoarsenes s. ENT was consulted to evaluate her. She has a history of Hodgkin disease and what sounds to be ma tted lymph nodes in her chest. She is having pain when swallowing and her voice has been weak as wel l. PAST MEDICAL HISTORY: Coronary artery disease, Hodgkin's lymphoma, anxiety, depression, diabetes, ga stroesophageal reflux disease, hypertension. PAST SURGICAL HISTORY: Angioplasty. DRUG ALLERGIES: VANCOMYCIN. MEDICATIONS: List was reviewed. SOCIAL HISTORY: Negative for tobacco, alcohol or drug abuse. FAMILY HISTORY: Negative for any kidney, liver or thyroid disease. Positive for asthma and vascular disease. REVIEW OF SYSTEMS: A 12-point review of systems otherwise noncontributory. PHYSICAL EXAMINATION: Today, the septum is mildly deviated to the right. Mucosa without erythema or edema. Oral cavity, oropharynx show tongue, floor of mouth normal. Oropharynx is without lesion. Neck reveals no lymphadenopathy or thyromegaly. Trachea is midline. Her parotids and submandibular glands are without lesion. Endoscopy was performed through the left nasal cavity. The nasopharynx i s clear. Base of tongue is symmetric. Eye is open. Epiglottis normal. Vocal cord motion shows dec reased left-sided vocal cord mobility when compared with the right, but the airway is excellent and n o masses or lesions are seen. No pooled secretions are noted. IMPRESSION: 1. Dysphagia. 2. Left true vocal cord paresis. PLAN: At this point, I discussed the case with Dr. Kruse in and as a CT has been done and sounds as if it is the reason for her vocal cord paresis, it is reasonable to perform a swallowing study at this time, because I cannot imagine those matted lymph nodes would give her odynophagia. Dictated By: ABIODUN GRIGSBY MD DM/NTS Conf#: [id number] DID#: [id number] CC: PEDRO KRUSE MD;*EndCC*
--- NOTE | 2019-05-29 03:30 | CONS ---
DATE OF ADMISSION: 05/27/2019 DATE OF CONSULTATION: REASON FOR CONSULTATION: Dysphagia and failure to thrive for the last 1 month. HISTORY OF PRESENT ILLNESS: The patient is a 73-year-old female with a history of lymphoma status po st chemotherapy as per the daughter. She came to the hospital for change of voice and also dysphagia. The dysphagia is there for the last 1 month and the patient also has a pain in the left side of the neck. This information was gathered from the son, who happens to be the nurse, and also from the alberto tinsleyhter who was by the side of the patient. Patient has been steadily losing weight and as per the so n, the food gets stuck in the distal part of the esophagus and it takes a long time for her to push i t down. No nausea, no vomiting, no GI bleeding, no chest pain, no shortness of breath. REVIEW OF SYSTEMS: Otherwise negative. The patient also has a history of laryngeal palsy based on t he ENT surgeon's finding. PAST MEDICAL HISTORY: CHF, GERD, GI bleeding, hypertension, hypothyroidism, UTI. PAST SURGICAL HISTORY: Angioplasty. SOCIAL HISTORY: Does not smoke. No alcohol. PHYSICAL EXAMINATION: GENERAL: Alert, awake, not in distress. VITAL SIGNS: Stable. HEENT: Unremarkable. NECK: Supple, no thyromegaly, no lymphadenopathy. CARDIOVASCULAR: No murmur, gallop or click. LUNGS: Clear. ABDOMEN: Benign. EXTREMITIES: No edema. CENTRAL NERVOUS SYSTEM: Grossly within normal limits. LABORATORY DATA: Hematocrit is 41, WBC is 9.2. Triglycerides 244. BNP was high at 5600. Otherwise , it was negative. I am reviewing her previous biopsy report. Chest x-ray done, diffuse interstitia l and patchy airspace opacity throughout the lungs may represent pulmonary edema. Her echocardiogram showed ejection fraction of 20% to 25%. This was done just a few months ago. As per the daughter, this is all related to chemotherapy. IMPRESSION: 1. Dysphagia or failure to thrive, progressive in nature, can swallow her own saliva. 2. Weight loss. 3. Cardiomyopathy with ejection fraction of 20% to 25%. 4. History of Hodgkin's lymphoma. 5. Depression. 6. Kyphosis. 7. Hypertension. 8. Status post left subclavian pacemaker implantation. PLAN: Continue present care. We will proceed with EGD to find out the cause of dysphagia and need a cardiology clearance. Dictated By: HUMZA MOORE/CECILIA Conf#: [id number] DID#: [id number] CC: PEDRO KRUSE MD;*EndCC*
[2019-05-29] MEDS: FUROSEMIDE 40 MG TAB PO SCH (05:28)
[2019-05-29] MEDS: LEVOTHYROXINE 125 MCG TAB PO SCH (07:00)
[2019-05-29] MEDS: POTASSIUM CHLORIDE (SR) 8 MEQ CAP PO SCH (09:00)
[2019-05-29] MEDS: FOLIC ACID 1 MG TAB PO SCH (09:00)
[2019-05-29] MEDS: MEGESTROL 40 MG TAB PO SCH ×3 (09:00→22:34)
[2019-05-29] MEDS: MAGNESIUM OXIDE 400 MG TAB PO SCH (09:00)
[2019-05-29] MEDS: CLOPIDOGREL 75 MG TAB PO SCH (09:00)
[2019-05-29] MEDS: SACUBITRIL/VALSARTAN (24mg-26mg) TABLET PO SCH ×2 (09:00→22:35)
[2019-05-29] MEDS: ISOSORBIDE MONONITRATE(SR)30 MG TAB PO SCH (09:00)
[2019-05-29] MEDS: ASPIRIN 81 MG TAB PO SCH (09:00)
[2019-05-29] MEDS: LIDOCAINE 5% PATCH TD SCH (10:18)
--- NOTE | 2019-05-29 12:17 | PREAC ---
Date/Time of Note Date/Time of Note DATE: 05/29/19 TIME: 12:16 Anesthesia Eval and Record Evaluation Time Pre-Procedure Interview DATE: 05/29/19 TIME: 12:16 Age 73 Sex female NPO: 8 hrs Preoperative diagnosis Dysphagia Planned procedure EGD Past Medical History Past Medical History: Includes (Hodgkin lymphoma) Cardio: HTN, Dyslipidemia, CAD, PTCA/Stent, PPM/AICD, CHF, Other (Recurrent episodes of V. tach now 8 complexes on a monitor and SVT) Endo: Diabetes, Hypothyroid Neuro: CVA (with left facial drooling, left facial) Heme: Anemia Psych: Anxiety Surgery & Anesthesia Issues No known issue Meds Anticoagulation: No Beta Jolly within 24 hr: No Reason Beta Jolly not given: Pt. not on B-Jolly Active Scripts Fenofibrate* (Fenofibrate*) 200 Mg Cap, 200 MG PO DAILY for 30 Days, #30 CAP Prov:PEDRO KRUSE MD 09/16/18 Digoxin* (Lanoxin*) 0.125 Mg Tablet, 0.125 MG PO DAILY for 30 Days, #30 TAB Prov:PEDRO KRUSE MD 09/16/18 Potassium Chloride* (Potassium Chloride*) 8 Meq Capsule.er, 8 MEQ PO DAILY for 30 Days, #30 CAP Prov:PEDRO KRUSE MD 09/16/18 Isosorbide Mononitrate* (Isosorbide Mononitrate*) 30 Mg Tab.er.24h, 30 MG PO DAILY for 30 Days, #30 TAB Prov:PEDRO KRUSE MD 09/16/18 Clopidogrel Bisulfate (Clopidogrel) 75 Mg Tablet, 75 MG PO DAILY, #30 TAB Prov:PEDRO KRUSE MD 09/16/18 Folic Acid* (Folic Acid*) 1 Mg Tablet, 1 MG PO DAILY for 30 Days, #30 TAB Prov:PEDRO KRUSE MD 09/16/18 Aspirin* (Aspirin* Chew) 81 Mg Tab.chew, 81 MG PO DAILY for 30 Days, #30 TAB.CHEW Prov:PEDRO KRUSE MD 09/16/18 Reported Medications Nystatin (Nystatin) 100,000 Unit/1 Ml Oral.susp, 5 ML PO Q4, #60 ML 05/27/19 Acetaminophen with Codeine (Acetaminop-Codeine 120-12 mg/5) 118 Ml Solution, 5 ML PO Q4 for PAIN 05/27/19 Megestrol Acetate* (Megestrol Acetate*) 40 Mg Tablet, 40 MG PO TID for APPETITE, TAB 05/27/19 Furosemide* (Furosemide*) 40 Mg Tablet, 40 MG PO BID, TAB 05/27/19 Levothyroxine Sodium* (Levothyroxine Sodium*) 125 Mcg Tablet, 125 MCG PO BEFORE BREAKFAST, #30 TAB 02/11/19 Esomeprazole Mag Trihydrate (Nexium) 40 Mg Capsule.dr, 40 MG PO DAILY, #30 CAP 02/11/19 Magnesium Oxide* (Magnesium Oxide*) 400 Mg Tablet, 400 MG PO DAILY, TAB 02/11/19 Discontinued Reported Medications Lorazepam* (Lorazepam*) 0.5 Mg Tablet, 0.5 MG PO Q8 PRN for ANXIETY, TAB 02/11/19 Ondansetron Hcl* (Ondansetron Hcl*) 4 Mg Tablet, 4 MG PO Q6H PRN for nausea/vomiting, TAB 02/11/19 Ergocalciferol* (Drisdol* (Vitamin D2)) 50,000 Unit Capsule, 17214 UNIT PO Q7D for 30 Days, #4 CAP 08/04/16 Discontinued Scripts Ipratropium-Albuterol (Ipratropium-Albuterol) 0.5-3 Mg/3 Ml Ampul.neb, 3 ML HHN Q4H RESP THERAPY PRN for SHORTNESS OF BREATH for 30 Days, #90 Prov:PEDRO KRUSE MD 09/16/18 Albuterol Sulfate* (Albuterol Sulfate* Neb) 0.083%-3 Ml Neb, 2.5 MG HHN Q8H RESP THERAPY for 90 Days, #90 CAP 2 Refills Prov:PEDRO KRUSE MD 09/16/18 Furosemide* (Furosemide*) 40 Mg Tablet, 40 MG PO DAILY for 30 Days, #30 TAB Prov:PEDRO KRUSE MD 09/16/18 Spironolactone* (Aldactone*) 25 Mg Tablet, 25 MG PO DAILY, #30 TAB Prov:PEDRO KRUSE MD 09/16/18 Megestrol Acetate* (Megace*) 40 Mg Tab, 40 MG PO BID for 60 Days, #30 TAB Prov:PEDRO KRUSE MD 09/16/18 Acetaminophen* (Tylenol*) 500 Mg Tab, 500 MG PO Q8 PRN for pain and temp. more then 99F for 30 Days, #90 TAB Prov:PEDRO KRUSE MD 09/16/18 Metoprolol Tartrate* (Lopressor*) 50 Mg Tab, 50 MG PO BID, #60 TAB Prov:PEDRO KRUSE MD 09/16/18 Losartan-Hydrochlorothiazide (Losartan-HCTZ) 100-25 Mg Tab, 1 TAB PO DAILY for 30 Days, #30 TAB Prov:PEDRO KRUSE MD 09/16/18 Current Medications Aspirin (Aspirin) 81 mg DAILY PO Last administered on 05/28/19 09:39; Admin Dose 81 MG; Start 05/27/19 at 18:30 Clopidogrel Bisulfate (plaVIX) 75 mg DAILY PO Last administered on 05/28/19 09:39; Admin Dose 75 MG; Start 05/27/19 at 18:30 Folic Acid (Folic Acid) 1 mg DAILY PO Last administered on 05/28/19 09:40; Admin Dose 1 MG; Start 05/27/19 at 18:30 Furosemide (Lasix) 40 mg BID DIURETICS PO Last administered on 05/28/19 05:17; Admin Dose 40 MG; Start 05/27/19 at 18:14 Isosorbide Mononitrate (Imdur) 30 mg DAILY PO Last administered on 05/27/19 18:57; Admin Dose 30 MG; Start 05/27/19 at 18:30 Levothyroxine Sodium (Synthroid) 125 mcg BEFORE BREAKFAST PO ; Start 05/28/19 at 07:00 Magnesium Oxide (Mag-Ox 400) 400 mg DAILY PO Last administered on 05/28/19 09:40; Admin Dose 400 MG; Start 05/27/19 at 18:30 Megestrol Acetate (Megace) 40 mg TID PO Last administered on 05/28/19 19:57; Admin Dose 40 MG; Start 05/27/19 at 21:00 Nystatin (Nystatin Susp) 5 ml Q4 PO Last administered on 05/28/19 05:18; Admin Dose 5 ML; Start 05/27/19 at 21:00 Potassium Chloride (Micro-K) 8 meq DAILY PO Last administered on 05/28/19 09:39; Admin Dose 8 MEQ; Start 05/27/19 at 18:30 Sacubitril/ Valsartan (Entresto 24 Mg-26 Mg) 1 tab BID PO Last administered on 05/28/19 19:57; Admin Dose 1 TAB; Start 05/27/19 at 21:00 Ondansetron HCl (Zofran Inj) 4 mg Q4H PRN IV NAUSEA AND/OR VOMITING; Start 05/27/19 at 18:30 Acetaminophen (Tylenol Tab) 500 mg Q6H PRN PO MILD PAIN(1-3)OR ELEVATED TEMP Last administered on 05/28/19 19:57; Admin Dose 500 MG; Start 05/27/19 at 18:30 Albuterol/ Ipratropium (Duoneb) 3 ml Q6H RESP THERAPY PRN HHN SHORTNESS OF BREATH; Start 05/27/19 at 18:30 Lidocaine (Lidoderm) 1 patch DAILY TD Last administered on 05/29/19at 10:18; Admin Dose 1 PATCH; Start 05/27/19 at 18:30 Miscellaneous Information ([facility]) This patient meyer... PRN PRN XX WOUND CARE; Start 05/27/19 at 20:00 Digoxin (Digoxin) 0.125 mg DAILY@1300 PO Last administered on 05/28/19at 13:01; Admin Dose 0.125 MG; Start 05/28/19 at 13:00 Meds reviewed: Yes Allergies Coded Allergies: vancomycin (Verified Allergy, Mild, REDNESS AND ITCHING, 03/20/18) Allergies Reviewed: Yes Labs/Studies Labs Reviewed: Reviewed by anesthesiologist Result Diagram: 05/27/19 1109 05/28/19 0512 test: N/A Studies: ECG, CXR (Diffuse interstitial and patchy airspace opacities throug hout the lungs may represent pulmonary edema. This is increased since the prior exam.), 2D Echo (EF 25-30%) Pre-procedure Exam Last vitals Vital Signs Date Temp Pulse Resp B/P (MAP) Pulse Ox O2 O2 Flow FiO2 Time Delivery Rate 05/29/19 98.3 104 19 117/82 99 Room Air 11:10 (94) Airway: Adequate mouth opening Mallampati: Mallampati II Teeth: Normal Lung: Normal Heart: Normal ASA Physical Status ASA physical status: 4 Emergency: None Planned Anesthetic General/MAC: MAC Pre-operative Attestations Prior to commencing anesthesia and surgery, the patient was re-evaluated, there was verification of: *The patient's identity *The results of appropriate recent lab work and preoperative vital signs *The above evaluation not changing prior to induction *Anesthetic plan, risk benefits, alternative and complications discussed with patient/family; questions answered; patient/family understands, accepts and wishes to proceed. DEEPTI VAZQUEZ May 29, 2019 12:17
[2019-05-29] MEDS: DIGOXIN 0.125 MG TAB PO SCH (12:33)
--- NOTE | 2019-05-29 12:53 | QN ---
Documentation Comment Patient has no cardiac contraindication to proceeding to endoscopy for tommy luation of dysphagia/odynophagia c/b FTT at this time but given severely depressed LVEF patient is at high risk for cardiovascular complications. Post- operatively would check a 12 lead ECG and watch closely for s/sx of cardiovascular complications including but not limited to the onset chest pain, sob, uncontrolled cardiac arrhythmias, or development of decompensted CHF. ARIEL HOBBS May 29, 2019 12:52
[2019-05-29] MEDS ORDERED: LIDOCAINE 4% SOLUTION 50 ML BTL ONE (13:39)
[2019-05-29] MEDS ORDERED: FENTAnyl 50 MCG/ML VIAL ONE ×2 (13:39)
[2019-05-29] MEDS ORDERED: MIDAZOLAM 1 MG/ML 2 ML INJ ONE (13:39)
[2019-05-29] MEDS: ONDANSETRON 4 MG INJ IV PRN (14:58)
[2019-05-29] MEDS ORDERED: SOD CHLORIDE 0.9% 100 ML ONE ×2 (15:49→16:01)
[2019-05-29] MEDS ORDERED: IOHEXOL 300MG/ML 150 ML BTL ONE ×2 (15:49→16:01)
[2019-05-29] MEDS ORDERED: IOHEXOL 300MG/ML 30 ML BTL ONE (15:58)
[2019-05-29] MEDS: FUROSEMIDE 40 MG INJ IV SCH (17:31)
--- NOTE | 2019-05-29 19:08 | CONS ---
DATE OF ADMISSION: 05/27/2019 DATE OF CONSULTATION: 05/29/2019 CARDIOLOGY CONSULTATION REASON FOR CONSULTATION: Preoperative evaluation, congestive heart failure, systolic; cardiomyopathy with severe depressed left ventricular ejection fraction. REQUESTING PHYSICIAN: Pedro Kruse M.D. HISTORY OF PRESENT ILLNESS: Ms. Gracia is a 73-year-old female with a history of systolic congestive heart failure, cardiomyopathy with severely depressed left ventricular ejection fraction of approximately 20% to 25% by echo 02/2019, status post a left heart catheterization secondary to non-ST elevation myocardial infarction 04/2019 at which time she had patent LAD, RCA and circ stents with a chronic occlusion of a diagonal stent; no new stents were placed at this time; dysphagia, lymphoma, dyslipidemia, history of ICD, mitral regurgitation status post mitral valve eCLIP 02/2019, who presents with headache, ear pain, inability to swallow. The patient states that swallowing hurts her at this time and has had difficulty even swallowing her saliva, and therefore has very poor p.o. intake and is experiencing weight loss. 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 Indeed, this patient has difficulty speaking as well. Upon arrival in the emergency department, temperature of 99.3, blood pressure 115/58, pulse 106, respiratory rate 17, satting 96%. The patient's labs revealed a white cell count 9.2, hemoglobin 12.8, platelet count of 198. Sodium of 144, potassium 4.3, creatinine 0.6, BUN 11. Troponin negative. BNP of 5600. TSH suppressed at 0.240. The patient underwent a chest x-ray revealing diffuse interstitial patchy airspace opacities throughout the lungs; may represent pulmonary edema. Patient's electrocardiogram revealed sinus rhythm at 88, normal axis, no rales with nonspecific ST-T abnormalities diffusely. The patient has been admitted to the floor where she has been monitored by telemetry revealing sinus rhythm, sinus tachycardia, no significant arrhythmias or pauses. The patient's blood pressure has been relatively stable with some mild lability down to the high 90s, most recently 117/82. The patient at this time denies chest pain. Does have pain with swallowing and mild shortness of breath, but is able to lie flat without any significant respiratory distress. PAST MEDICAL HISTORY: As above in HPI. MEDICATIONS CURRENTLY IN HOSPITAL: 1. Digoxin 0.125 daily. 2. Synthroid 125 mcg daily. 3. Megace 40 mg t.i.d. 4. Nystatin. 5. Entresto 1 tab b.i.d. 24/26 mg. 6. Aspirin 81 mg daily. 7. Plavix 75 mg daily. 8. Folic acid 1 mg daily. 9. Imdur 30 mg daily. 10. Mag-OX. 11. Potassium chloride. 12. Zofran. 13. Tylenol. 14. Lidoderm 15. Lasix 40 mg p.o. b.i.d. ALLERGIES: VANCOMYCIN. SOCIAL HISTORY: No current tobacco, ETOH or illicit drug use. FAMILY HISTORY: No history of sudden cardiac or early CAD. REVIEW OF SYSTEMS: As above in HPI. CONSTITUTIONAL: No fevers, chills. PULMONARY: Mild shortness of breath. CARDIOVASCULAR: No current chest pain. History of cardiomyopathy with severely depressed left ventricular ejection fraction. GASTROINTESTINAL: No vomiting. GENITOURINARY: No hematuria. MUSCULOSKELETAL: Degenerative joint disease. PSYCHIATRIC: The patient has depression. NEUROLOGIC: No documented history of CVA. ENDOCRINE: No documented history of diabetes mellitus. Positive history of thyroid disease. PHYSICAL EXAMINATION: VITAL SIGNS: Temperature of 98.3, blood pressure 117/82, pulse 104, respirations 19, sat 99%. GENERAL: The patient is alert, awake, complaining of difficulty swallowing. NECK: JVP approximately 9 cm of water. CHEST: Fair movement throughout, mild decreased breath sounds at bases bilaterally. HEART: Regular rate and rhythm. Normal S1, S2. Laterally displaced PMI. ABDOMEN: Positive bowel sounds, soft. EXTREMITIES: No edema. Difficult to palpate distal pulses bilaterally, posterior tibial. LABORATORY DATA: Most recently from today sodium, potassium 3.9, creatinine 0.69, BUN of 10. Troponin negative times a total of 3. BNP of 5600. LDL of 97, HDL 19. White blood cell count from yesterday 9.2, hemoglobin 12.8, platelet count of 198. ESR 20. IMAGING STUDIES: As above in HPI. No further imaging studies for my review at this time. ECG: As in HPI. No further electrocardiograms for my review at this time. IMPRESSION: 1. Preoperative evaluation prior to endoscopy for evaluation of the patient's dysphagia and odynophagia, in a patient that has a severely depressed ejection fraction, mild infiltrates on her chest x-ray but not in gross decompensated congestive heart failure, able to lie flat with good saturations and a recent catheterization in April revealing patent stents. 2. Cardiomyopathy with severely depressed left ventricular ejection fraction. 3. Congestive heart failure, systolic, chwir-nt-byrphyj. 4. Dysphagia and odynophagia. 5. Vocal cord paresis. 6. Hypothyroidism. 7. History of percutaneous transluminal coronary angioplasty and stent placement, patent via catheterization 04/2019, with most recent stents actually placed in 2016, with a type 2 non-ST elevated myocardial infarction prior to last catheterization, and a stress test 02/2019, revealing no reversible ischemia with ejection fraction of 19%. 8. Xuxtzue-ap-goowph. 9. Lymphoma Hodgkin's ongoing status post chemotherapy. 10. History of cerebrovascular accident. 11. Hypertension. 12. Dyslipidemia. 13. Hypothyroidism. 14. Urinary incontinence. 15. Psychiatric disorder. 16. Nonsustained ventricular tachycardia. 17. Status post implantable cardioverter-defibrillator. RECOMMENDATIONS: 1. At this time, the patient is to undergo endoscopy for evaluation of odynophagia and dysphagia and has negative troponins x3. No ongoing chest pain, no significant volume overload and thus the patient is okay to proceed to the procedure at this time, but given severely depressed left ejection fraction the patient is at high cardiovascular risk but has no cardiac contraindication. Postoperatively, would check a 12-lead EKG and watch closely for cardiovascular complications including but not limited to the onset of chest pain, shortness of breath, uncontrolled cardiac arrhythmias or development of congestive heart failure, decompensated. 2. Would maintain patient on telemetry monitoring to follow rhythm and rate control closely. 3. Would maintain patient on Entresto and the patient should additionally be placed on a beta mary which I do not see in her medication sheet at this time for treatment of cardiomyopathy and episodes of nonsustained ventricular tachycardia. 4. Continue the patient's antiplatelet therapy at this time given recent NSTEMI, although type 2. 5. Continue the patient's afterload reduction with Entresto. 6. Continue the patient's antianginal medications with Imdur. 7. We will place patient on standing Lasix diuresis as she takes at home following volume status closely. 8. Continue the patient's digoxin and check a digoxin level. 9. Check a free T4 to further assess patient's current thyroid state. Thank you for allowing me to take part in the care of this patient. I will continue to follow along very closely with you with recommendations to be made as the patient progresses through her inpatient hospital clinical course. Dictated By: ARIEL ALVAREZ/CECILIA Conf#: [id number] DID#: [id number] CC: PEDRO KRUSE MD;*EndCC* MTDD
--- NOTE | 2019-05-29 20:06 | PN ---
Date/Time of Note Date/Time of Note DATE: 05/29/19 TIME: 19:59 Assessment/Plan VTE Prophylaxis Risk score (from Ns)>0 risk: 4 SCD applied (from Ns): Yes SCD contraindicated: other Pharmacological prophylaxis: LMWH Lines/Catheters IV Catheter Type (from [facility]): Peripheral IV Central line still needed: No Urinary Cath still in place: No Reason Cath still needed: urinary retention Assessment/Plan Assessment/Plan 1. Dysphagia. unable to eat. Unable to swallow most of the time. Regurgitating even saliva. On and off able to swallow. Severe decrease of voice with substernal pressure sensation severe respiratory distress with worsening of wheezing and inability to sleep. Unable to take medications due to above 2.IHD angina, new onset NM by positive troponin series still high. Discussed with Dr. Alvarez. HX of recent PTCA with one stent and 3 balloon dilatation of narrow coronary arteries(; according to the daughter). Status post stapling of mitral valve 6 months ago in [facility] with improvement of condition immediately after the procedure but still she is having frequent hospit alizations. Although it is evident that the cause is not over drinking possibly medication noncompliance. Discussed with Dr. Alvarez. 3. Dysphagia to solids and sometimes to liquids now to everything. Refuses to eat secondary to pain.. Called Dr. matos [phone] for a ENT consultation. 4. Pulmonary edema by x-ray with wheezing on admission, improved after lasix. Ejection fraction was at 25-30 %. Improved. 5. History of Hodgkin lymphoma:. 6. Osteoarthritis with pain syndrome 7. Anxiety disorder. 8. Depression with grief reaction-s/p loss of . 9. Urinary incontinence. 10. Osteoporosis. 11. Kyphosis. 12. Postmenopausal syndrome. 13. Anemia with nl iron. 14. Brain atrophy on CT. 15. Left sphenoid sinusitis on CT. 16. Left ventricular hypertrophy. 17. Urinary incontinence with recurrent UTIs. Now with enterococcus species. 18.Cerebrovascular accident, with left facial drooling, left facial weakness, with slurred speech and dysphagia. Mild left upper extremity weakness. 19. Hypertension, now normotensive.Cardiomegaly on cxr 20. Status post left subclavian area pacemaker implantation about 3 months ago. 21. Status post mitral valve endocardial manipulation with stapling of the valves with good clinical results. 22. Recurrent episodes of V. tach now 8 complexes on a monitor and SVT; placed on the monitor but cardiology consult. 23.Weight loss mainly due to of not eating well. 24.Sleeplessness 25.Poor self expression capacity and getting worse. Talks for minutes but unable to conclude talk or be precise. 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 27. Weight loss 20.Medication noncompliance. Result Diagram: 05/27/19 1109 05/28/19 0512 Results 24hrs Laboratory Tests Test 05/29/19 13:23 Bedside Glucose 88 Subjective 24 Hr Interval Summary Free Text/Dictation The patient is refusing to eat due to of regurgitation. Barely able to express words to have a decreased voice. Positive for vomiting. Underwent a GI work-up results are pending. Antoinette Silver is nostril specialist yesterday after the procedure that the patient has paresis of the left vocal cord but no local tumors or other masses which can explain the symptoms the patient the doctor is recommending to the CT of the neck to find any externally pressing factors to the recurrent laryngeal nerve. Constitutional: diaphoresis, poor po, requiring IVF, requiring O2; No no complaints, No improved, No chills, No disoriented, No febrile, No other Eyes: No no complaints, No pain, No discharge, No redness, No visual change, No other ENT: congestion, dysphagia; No no complaints, No bleeding, No pain, No discharge, No sore throat, No other Respiratory: cough, shortness of breath; No no complaints, No pain, No pleuritic pain, No sputum, No wheezing, No other Cardiovascular: palpitations; No no complaints, No chest pain, No edema, No lightheadedness, No orthopenea, No paroxysmal nocturnal dyspnea, No other Gastrointestinal: constipation, decreased appetite; No no complaints, No pain, No blood, No diarrhea, No flatus, No nausea, No passing stool, No vomiting, No other Genitourinary: dysuria; No no complaints, No bleeding, No discharge, No flank pain, No hematuria, No other Musculoskeletal: back pain, bone/joint pain, neck pain; No no complaints, No restricted range of motion, No swelling, No other Skin: No no complaints, No bruising, No erythema, No laceration, No pruritis, No rash, No skin lesions, No other Neurologic: dizziness, headache; No no complaints, No confusion, No focal-weakness, No syncope, No seizure, No other Lymphatic: adenopathy; No no complaints, No tender nodes, No lymphadema, No other Psychological: anxiety; No no complaints, No nl mood/affect, No confusion, No depression, No suicidal, No other Exam/Review of Systems Exam Vitals Vital Signs Date Temp Pulse Resp B/P (MAP) Pulse Ox O2 O2 Flow FiO2 Time Delivery Rate 05/29/19 97.5 92 18 97/58 (71) 96 Room Air 19:24 Intake and Output 05/28/19 05/28/19 05/29/19 1515:00 23:00 07:00 IntakeIntake Total 500 ml 200 ml BalanceBalance 500 ml 200 ml Constitutional: alert, oriented, well developed, distress, frail, other (Not oriented in time is not interested in further evaluation expresses thoughts of leaving the hospital.) Psych: anxiety, confusion; No no complaints, No nl mood/affect, No depression, No suicidal, No other Head: normocephalic, atraumatic; No lacerations, No hematomas, No other Eyes: EOMI, nl lids; No nl conjunctiva, No nl sclera, No PERRL, No icteric, No fundi, disc, No other ENMT: nl external ears & nose, nl nasal mucosa & septum; No nl lips & teeth, No mucosa pink and moist, No intubated, No tympanic membranes, No other Neck: non-tender Respiratory: normal air movement, congested cough; No clear to auscultation, No crackles/rales, No diminished breath sounds, No intercostal retraction, No labored breathing, No respirations, No tactile fremitus, No wheezing, No other Cardiovascular: regular rate and rhythm, edema, irregular rhythm, systolic mu rmur; No nl pulses, No bruits, No diastolic murmur, No gallop, No jugular venous distention (JVD), No murmurs/extra sounds, No rub, No S3, No S4, No other Gastrointestinal: soft, nl liver, spleen, bowel sounds Musculoskeletal: joint tenderness, muscle tone, muscle weakness; No nl extremities to inspection, No nl gait and stance, No range of motion, N o spine non-tender, No swelling, No other Extremities: pitting pedal edema (Pitting and nonpitting edema.); No normal pulses, No calf tenderness, No cyanosis, No clubbing, No edema, No palpable cord, No tenderness, No other 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: INDEPENDENT TRADER II-XII intact (Hearing impaired decreased voice.) Skin: nl turgor (Decreased.); No rash or lesions, No diaphoresis, No ecchymosis, No laceration, No puncture, No other Results Results 24hrs Laboratory Tests Test 05/29/19 13:23 Bedside Glucose 88 Medications Medication Current Medications Aspirin (Aspirin) 81 mg DAILY PO Last administered on 05/28/19 09:39; Admin Dose 81 MG; Start 05/27/19 at 18:30 Clopidogrel Bisulfate (plaVIX) 75 mg DAILY PO Last administered on 05/28/19 09:39; Admin Dose 75 MG; Start 05/27/19 at 18:30 Folic Acid (Folic Acid) 1 mg DAILY PO Last administered on 05/28/19 09:40; Admin Dose 1 MG; Start 05/27/19 at 18:30 Isosorbide Mononitrate (Imdur) 30 mg DAILY PO Last administered on 05/27/19 18:57; Admin Dose 30 MG; Start 05/27/19 at 18:30 Levothyroxine Sodium (Synthroid) 125 mcg BEFORE BREAKFAST PO ; Start 05/28/19 at 07:00 Magnesium Oxide (Mag-Ox 400) 400 mg DAILY PO Last administered on 05/28/19 09:40; Admin Dose 400 MG; Start 05/27/19 at 18:30 Megestrol Acetate (Megace) 40 mg TID PO Last administered on 05/28/19 19:57; A dmin Dose 40 MG; Start 05/27/19 at 21:00 Nystatin (Nystatin Susp) 5 ml Q4 PO Last administered on 05/29/19 17:31; Admin Dose 5 ML; Start 05/27/19 at 21:00 Potassium Chloride (Micro-K) 8 meq DAILY PO Last administered on 05/28/19 09:39; Admin Dose 8 MEQ; Start 05/27/19 at 18:30 Sacubitril/ Valsartan (Entresto 24 Mg-26 Mg) 1 tab BID PO Last administered on 7/16/19at 19:57; Admin Dose 1 TAB; Start 05/27/19 at 21:00 Ondansetron HCl (Zofran Inj) 4 mg Q4H PRN IV NAUSEA AND/OR VOMITING Last admin istered on 05/29/19 14:58; Admin Dose 4 MG; Start 05/27/19 at 18:30 Acetaminophen (Tylenol Tab) 500 mg Q6H PRN PO MILD PAIN(1-3)OR ELEVATED TEMP Last administered on 05/28/19 19:57; Admin Dose 500 MG; Start 05/27/19 at 18:30 Albuterol/ Ipratropium (Duoneb) 3 ml Q6H RESP THERAPY PRN HHN SHORTNESS OF BREATH; Start 05/27/19 at 18:30 Lidocaine (Lidoderm) 1 patch DAILY TD Last administered on 05/29/19at 10:18; Admin Dose 1 PATCH; Start 05/27/19 at 18:30 Miscellaneous Information (Pending [facility] Order For Wound Care) This patient meyer... PRN PRN XX WOUND CARE; Start 05/27/19 at 20:00 Digoxin (Digoxin) 0.125 mg DAILY@1300 PO Last administered on 05/29/19at 12:33; Admin Dose 0.125 MG; Start 05/28/19 at 13:00 Furosemide (Lasix) 40 mg BID DIURETICS IV Last administered on 05/29/19at 17:31; Admin Dose 40 MG; Start 05/29/19 at 18:00 Metoprolol Succinate (Toprol Xl) 12.5 mg DAILY PO ; Start 05/30/19 at 09:00 Dextrose/Sodium Chloride 1,000 ml @ 50 mls/hr Q20H IV ; Start 05/29/19 at 19:30 PEDRO KRUSE MD May 29, 2019 20:06
--- NOTE | 2019-05-29 22:35 | CONS ---
Assessment/Plan Assessment/Plan Hospital Course (Demo Recall) Hodgkin lymphoma- s/p chemotherapy PT HAS HX PROGRESSIVE REFRACTOPY DIS POST CHEMO AMD IMMUNOTHERAPY, MOST RECENT PET/CT SHOWED SOME IMPROVEMENT DYSPHAGIA COLON MASS- PER SON REPORT REVIEW PROCEDURE NOTE WILL RESTAGE CHECK CEA AWAIT PATH Anemia WITH COMPONENT ACD monitor Severe respiratory distress improving. HX IHD angina, Low LVEF dropped. Findings most consistent with mild ADHF with associated type II NSTEMI HX Pulmonary edema Osteoarthritis with pain syndrome Anxiety disorder. Depression with grief reaction-s/p loss of . Urinary incontinence. Osteoporosis. Kyphosis. Postmenopausal syndrome. Brain atrophy on CT. Left sphenoid sinusitis on CT. Left ventricular hypertrophy. Urinary incontinence. Cerebrovascular accident, with left facial drooling, left facial weakness, with slurred speech and dysphagia. Mild left upper extremity weakness.mostly corrected. Hypertension, now normotensive. HX of PTCA with one sent and 3 balloon dilatation of narrow coronary arteries(; Medication noncompliance. Consultation Date/Type/Reason Admit Date/Time May 27, 2019 at 13:49 Initial Consult Date Requesting Provider: PEDRO KRUSE MD Date/Time of Note DATE: 05/29/19 TIME: 22:32 24 HR Interval Summary Free Text/Dictation ALL NOTED D/W SON- PER HIS REPORT PT HAS A COLON MASS PATH- P WILL RESTAGE Exam/Review of Systems Exam Vitals Vital Signs Date Temp Pulse Resp B/P (MAP) Pulse Ox O2 O2 Flow FiO2 Time Delivery Rate 05/29/19 97.5 92 18 97/58 (71) 96 Room Air 19:24 Intake and Output 05/28/19 05/28/19 05/29/19 1515:00 23:00 07:00 IntakeIntake Total 500 ml 200 ml BalanceBalance 500 ml 200 ml Exam GENERAL: The patient is alert, awake, complaining of difficulty swallowing. NECK: JVP approximately 9 cm of water. CHEST: Fair movement throughout, mild decreased breath sounds at bases bilaterally. HEART: Regular rate and rhythm. Normal S1, S2. Laterally displaced PMI. ABDOMEN: Positive bowel sounds, soft. EXTREMITIES: No edema. Difficult to palpate distal pulses bilaterally, posterior tibial. NO PATH LN-[id number] Results Result Diagram: 05/27/19 1109 05/28/19 0512 Results 24hrs Laboratory Tests Test 05/29/19 13:23 Bedside Glucose 88 Medications Medication Current Medications Aspirin (Aspirin) 81 mg DAILY PO Last administered on 05/28/19 09:39; Admin Dose 81 MG; Start 05/27/19 at 18:30 Clopidogrel Bisulfate (plaVIX) 75 mg DAILY PO Last administered on 05/28/19 09:39; Admin Dose 75 MG; Start 05/27/19 at 18:30 Folic Acid (Folic Acid) 1 mg DAILY PO Last administered on 05/28/19 09:40; Admin Dose 1 MG; Start 05/27/19 at 18:30 Isosorbide Mononitrate (Imdur) 30 mg DAILY PO Last administered on 05/27/19 18:57; Admin Dose 30 MG; Start 05/27/19 at 18:30 Levothyroxine Sodium (Synthroid) 125 mcg BEFORE BREAKFAST PO ; Start 05/28/19 at 07:00 Magnesium Oxide (Mag-Ox 400) 400 mg DAILY PO Last administered on 05/28/19 09:40; Admin Dose 400 MG; Start 05/27/19 at 18:30 Megestrol Acetate (Megace) 40 mg TID PO Last administered on 05/28/19 19:57; Admin Dose 40 MG; Start 05/27/19 at 21:00 Nystatin (Nystatin Susp) 5 ml Q4 PO Last administered on 05/29/19 17:31; Admin Dose 5 ML; Start 05/27/19 at 21:00 Potassium Chloride (Micro-K) 8 meq DAILY PO Last administered on 05/28/19 09:39; Admin Dose 8 MEQ; Start 05/27/19 at 18:30 Sacubitril/ Valsartan (Entresto 24 Mg-26 Mg) 1 tab BID PO Last administered on 05/28/19 19:57; Admin Dose 1 TAB; Start 05/27/19 at 21:00 Ondansetron HCl (Zofran Inj) 4 mg Q4H PRN IV NAUSEA AND/OR VOMITING Last administered on 05/29/19 14:58; Admin Dose 4 MG; Start 05/27/19 at 18:30 Acetaminophen (Tylenol Tab) 500 mg Q6H PRN PO MILD PAIN(1-3)OR ELEVATED TEMP Last administered on 05/28/19 19:57; Admin Dose 500 MG; Start 05/27/19 at 18:30 Albuterol/ Ipratropium (Duoneb) 3 ml Q6H RESP THERAPY PRN HHN SHORTNESS OF BREATH; Start 05/27/19 at 18:30 Lidocaine (Lidoderm) 1 patch DAILY TD Last administered on 05/29/19at 10:18; Admin Dose 1 PATCH; Start 05/27/19 at 18:30 Miscellaneous Information (Pending [facility] Order For Wound Care) This patient meyer... PRN PRN XX WOUND CARE; Start 05/27/19 at 20:00 Digoxin (Digoxin) 0.125 mg DAILY@1300 PO Last administered on 05/29/19at 12:33; Admin Dose 0.125 MG; Start 05/28/19 at 13:00 Furosemide (Lasix) 40 mg BID DIURETICS IV Last administered on 05/29/19at 17:31 ; Admin Dose 40 MG; Start 05/29/19 at 18:00 Metoprolol Succinate (Toprol Xl) 12.5 mg DAILY PO ; Start 05/30/19 at 09:00 Dextrose/Sodium Chloride 1,000 ml @ 50 mls/hr Q20H IV ; Start 05/29/19 at 19:30 KALPANA ANGELES MD May 29, 2019 22:35
[2019-05-29] MEDS ORDERED: BARIUM SULF 2% 450 ML BTL (BERRY SMOOTHIE) PO ONE (23:00)
[2019-05-30] VITALS: BP 100/57; PULSE 94; RESP 19
[2019-05-30] MEDS: DEXTROSE 5%-0.45% NACL 1,000 ML IV SCH ×2 (00:14→15:33)
[2019-05-30] MEDS: NYSTATIN SUSP 5 ML CUP PO SCH ×6 (01:00→21:24)
[2019-05-30 04:00] VITALS: BP 103/59; PULSE 63; RESP 19
[2019-05-30] MEDS: FUROSEMIDE 40 MG INJ IV SCH ×2 (06:20→17:51)
[2019-05-30] MEDS: LEVOTHYROXINE 125 MCG TAB PO SCH (06:23)
[2019-05-30 07:27] VITALS: BP 103/53; PULSE 80; RESP 19
[2019-05-30] MEDS: ISOSORBIDE MONONITRATE(SR)30 MG TAB PO SCH (09:00)
[2019-05-30] MEDS: METOPROLOL (XL) 25 MG TAB PO SCH (09:00)
[2019-05-30] MEDS: CLOPIDOGREL 75 MG TAB PO SCH (09:07)
[2019-05-30] MEDS: SACUBITRIL/VALSARTAN (24mg-26mg) TABLET PO SCH ×2 (09:07→21:00)
[2019-05-30] MEDS: FOLIC ACID 1 MG TAB PO SCH (09:09)
[2019-05-30] MEDS: POTASSIUM CHLORIDE (SR) 8 MEQ CAP PO SCH (09:09)
[2019-05-30] MEDS: ASPIRIN 81 MG TAB PO SCH (09:09)
[2019-05-30] MEDS: MEGESTROL 40 MG TAB PO SCH ×3 (09:09→21:24)
[2019-05-30] MEDS: MAGNESIUM OXIDE 400 MG TAB PO SCH (09:10)
[2019-05-30] MEDS: LIDOCAINE 5% PATCH TD SCH (09:14)
[2019-05-30 11:11] VITALS: BP 104/62; PULSE 81; RESP 19
--- NOTE | 2019-05-30 12:25 | CONS ---
Assessment/Plan Assessment/Plan Hospital Course (Demo Recall) IMPRESSION: 1. Preoperative evaluation prior to endoscopy for evaluation of the patient's dysphagia and odynophagia, in a patient that has a severely depressed ejection fraction, mild infiltrates on her chest x-ray but not in gross decompensated congestive heart failure, able to lie flat with good saturations and a recent catheterization in April revealing patent stents.- Now post-op s/p endoscopy with findings of esophageal mass 2. Cardiomyopathy with severely depressed left ventricular ejection fraction. 3. Congestive heart failure, systolic, [id number]. 4. Dysphagia and odynophagia. 5. Vocal cord paresis. 6. Hypothyroidism. 7. History of percutaneous transluminal coronary angioplasty and stent placement, patent via catheterization 04/2019, with most recent stents actually placed in 2016, with a type 2 non-ST elevated myocardial infarction prior to last catheterization, and a stress test 02/2019, revealing no reversible ischemia with ejection fraction of 19%. 8. Qzjuhed-[id number]. 9. Lymphoma Hodgkin's ongoing status post chemotherapy. 10. History of cerebrovascular accident. 11. Hypertension. 12. Dyslipidemia. 13. Hypothyroidism. 14. Urinary incontinence. 15. Psychiatric disorder. 16. Nonsustained ventricular tachycardia-no recurrence, neg trop x 3 17. Status post implantable cardioverter-defibrillator. Recc: -Tele -serial ecg's -Contineu toprol/entresto as tolerated -Continue imdur as tolerated but if remains with marginal BP may d/c -f/u path on esophageal mass -Contineu lasix diuresis with patient on D5 IVF due to poor po intake -Continue digoxin -Continue asa/plavix Consultation Date/Type/Reason Admit Date/Time May 27, 2019 at 13:49 Initial Consult Date 05/29/19 Type of Consult Cardiology Reason for Consultation preop./CHF Requesting Provider: PEDRO KRUSE MD Date/Time of Note DATE: 05/30/19 TIME: 12:17 Exam/Review of Systems Vital Signs Vitals Vital Signs Date Temp Pulse Resp B/P (MAP) Pulse Ox O2 O2 Flow FiO2 Time Delivery Rate 05/30/19 97.8 81 19 104/62 98 Room Air 11:11 (76) Intake and Output 05/29/19 05/29/19 05/30/19 1515:00 23:00 07:00 IntakeIntake Total 100 ml 120 ml BalanceBalance 100 ml 120 ml Exam Exam Review of Systems: CONSTITUTIONAL: No fevers, chills. PULMONARY: No sob CARDIOVASCULAR: No chest pain/palpitations GASTROINTESTINAL: difficulty with swallowing GENITOURINARY: No hematuria/dysuria. MUSCULOSKELETAL: No myagias/arthalgias. PSYCHIATRIC: The patient denies depression. NEUROLOGIC: No weakness Constitutional: alert Psych: no complaints Head: normocephalic ENMT: mucosa pink and moist Neck: supple, jvd (9 cm water) Respiratory: diminished breath sounds (at bases/B) Cardiovascular: regular rate and rhythm Gastrointestinal: soft, non-tender Musculoskeletal: muscle weakness (mild generalized) Extremities: edema 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: other (no focal deficits) Labs Result Diagram: 05/27/19 1109 05/28/19 0512 Results 24hrs Laboratory Tests Test 05/29/19 13:23 05/30/19 05:01 Bedside Glucose 88 Carcinoembryonic Antigen 0.7 Medications Medications Current Medications Aspirin (Aspirin) 81 mg DAILY PO Last administered on 05/30/19 09:09; Admin Dose 81 MG; Start 05/27/19 at 18:30 Clopidogrel Bisulfate (plaVIX) 75 mg DAILY PO Last administered on 05/30/19 09:07; Admin Dose 75 MG; Start 05/27/19 at 18:30 Folic Acid (Folic Acid) 1 mg DAILY PO Last administered on 05/30/19 09:09; Admin Dose 1 MG; Start 05/27/19 at 18:30 Isosorbide Mononitrate (Imdur) 30 mg DAILY PO Last administered on 05/27/19at 18:57; Admin Dose 30 MG; Start 05/27/19 at 18:30 Levothyroxine Sodium (Synthroid) 125 mcg BEFORE BREAKFAST PO ; Start 05/28/19 at 07:00 Magnesium Oxide (Mag-Ox 400) 400 mg DAILY PO Last administered on 05/30/19 09:10; Admin Dose 400 MG; Start 05/27/19 at 18:30 Megestrol Acetate (Megace) 40 mg TID PO Last administered on 05/30/19 09:09; Admin Dose 40 MG; Start 05/27/19 at 21:00 Nystatin (Nystatin Susp) 5 ml Q4 PO Last administered on 05/29/19at 22:34; Admin Dose 5 ML; Start 05/27/19 at 21:00 Potassium Chloride (Micro-K) 8 meq DAILY PO Last administered on 05/30/19 09:09; Admin Dose 8 MEQ; Start 05/27/19 at 18:30 Sacubitril/ Valsartan (Entresto 24 Mg-26 Mg) 1 tab BID PO Last administered on 05/30/19 09:07; Admin Dose 1 TAB; Start 05/27/19 at 21:00 Ondansetron HCl (Zofran Inj) 4 mg Q4H PRN IV NAUSEA AND/OR VOMITING Last ad ministered on 05/29/19 14:58; Admin Dose 4 MG; Start 05/27/19 at 18:30 Acetaminophen (Tylenol Tab) 500 mg Q6H PRN PO MILD PAIN(1-3)OR ELEVATED TEMP Last administered on 05/28/19 19:57; Admin Dose 500 MG; Start 05/27/19 at 18:30 Albuterol/ Ipratropium (Duoneb) 3 ml Q6H RESP THERAPY PRN HHN SHORTNESS OF BREATH; Start 05/27/19 at 18:30 Lidocaine (Lidoderm) 1 patch DAILY TD Last administered on 05/30/19 09:14; Admin Dose 1 PATCH; Start 05/27/19 at 18:30 Miscellaneous Information (Pending [facility] Order For Wound Care) This patient meyer... PRN PRN XX WOUND CARE; Start 05/27/19 at 20:00 Digoxin (Digoxin) 0.125 mg DAILY@1300 PO Last administered on 05/29/19 12:33; Admin Dose 0.125 MG; Start 05/28/19 at 13:00 Furosemide (Lasix) 40 mg BID DIURETICS IV Last administered on 05/30/19 06:20; Admin Dose 40 MG; Start 05/29/19 at 18:00 Metoprolol Succinate (Toprol Xl) 12.5 mg DAILY PO ; Start 05/30/19 at 09:00 Dextrose/Sodium Chloride 1,000 ml @ 50 mls/hr Q20H IV Last administered on 05/30/19 00:14; Admin Dose 50 MLS/HR; Start 05/29/19 at 19:30 ARIEL HOBBS 18, 2019 12:25
[2019-05-30] MEDS: DIGOXIN 0.125 MG TAB PO SCH (13:00)
[2019-05-30] MEDS ORDERED: IOHEXOL 300MG/ML 150 ML BTL ONE (13:24)
[2019-05-30] MEDS ORDERED: SOD CHLORIDE 0.9% 100 ML ONE (13:24)
[2019-05-30 14:54] VITALS: BP 106/55; PULSE 79; RESP 19
--- NOTE | 2019-05-30 18:08 | CONS ---
Assessment/Plan Assessment/Plan Assessment/Plan (Daily) IMPRESSION: 1. Dysphagia or failure to thrive, progressive in nature, can swallow her own saliva. 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 Weight loss. 3. Cardiomyopathy with ejection fraction of 20% to 25%. 4. History of Hodgkin's lymphoma. 5. Depression. 6. Kyphosis. 7. Hypertension. 8. Status post left subclavian pacemaker implantation. Plan discussed case with the Dr. Salomon and also with primary MD and the son Patient best option is to put a G-tube before esophagus gets completely closed Consultation Date/Type/Reason Admit Date/Time May 27, 2019 at 13:49 Initial Consult Date Requesting Provider: PEDRO KRUSE MD Date/Time of Note DATE: 05/30/19 TIME: 18:06 24 HR Interval Summary Free Text/Dictation Patient complains of dysphagia and weakness Exam/Review of Systems Exam Vitals Vital Signs Date Temp Pulse Resp B/P (MAP) Pulse Ox O2 O2 Flow FiO2 Time Delivery Rate 05/30/19 97.5 79 19 106/55 98 Room Air 14:54 (72) Intake and Output 05/29/19 05/29/19 05/30/19 1515:00 23:00 07:00 IntakeIntake Total 100 ml 120 ml BalanceBalance 100 ml 120 ml Constitutional: alert, oriented, well developed Psych: no complaints, nl mood/affect Head: normocephalic, atraumatic Eyes: nl conjunctiva, EOMI, nl lids, nl sclera, PERRL ENMT: nl external ears & nose, nl lips & teeth, nl nasal mucosa & septum Neck: supple, non-tender Respiratory: clear to auscultation, normal air movement Cardiovascular: regular rate and rhythm, nl pulses Gastrointestinal: soft, nl liver, spleen, non-tender Musculoskeletal: nl extremities to inspection, nl gait and stance Extremities: normal pulses 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: ADZING AND BORING MACHINE FEEDER II-XII intact, nl mental status, nl speech, nl strength Skin: nl turgor; No rash or lesions Lymph: nl lymph nodes Results Result Diagram: 05/27/19 1109 05/28/19 0512 Results 24hrs Laboratory Tests Test 05/30/19 05:01 Carcinoembryonic Antigen 0.7 Medications Medication Current Medications Aspirin (Aspirin) 81 mg DAILY PO Last administered on 05/30/19 09:09; Admin Dose 81 MG; Start 05/27/19 at 18:30 Clopidogrel Bisulfate (plaVIX) 75 mg DAILY PO Last administered on 05/30/19 09:07; Admin Dose 75 MG; Start 05/27/19 at 18:30 Folic Acid (Folic Acid) 1 mg DAILY PO Last administered on 05/30/19 09:09; Admin Dose 1 MG; Start 05/27/19 at 18:30 Isosorbide Mononitrate (Imdur) 30 mg DAILY PO Last administered on 05/27/19 18:57; Admin Dose 30 MG; Start 05/27/19 at 18:30 Levothyroxine Sodium (Synthroid) 125 mcg BEFORE BREAKFAST PO ; Start 05/28/19 at 07:00 Magnesium Oxide (Mag-Ox 400) 400 mg DAILY PO Last administered on 05/30/19 09:10; Admin Dose 400 MG; Start 05/27/19 at 18:30 Megestrol Acetate (Megace) 40 mg TID PO Last administered on 05/30/19 09:09; Admin Dose 40 MG; Start 05/27/19 at 21:00 Nystatin (Nystatin Susp) 5 ml Q4 PO Last administered on 05/29/19 22:34; Admin Dose 5 ML; Start 05/27/19 at 21:00 Potassium Chloride (Micro-K) 8 meq DAILY PO Last administered on 05/30/19 09:09; Admin Dose 8 MEQ; Start 05/27/19 at 18:30 Sacubitril/ Valsartan (Entresto 24 Mg-26 Mg) 1 tab BID PO Last administered on 05/30/19 09:07; Admin Dose 1 TAB; Start 05/27/19 at 21:00 Ondansetron HCl (Zofran Inj) 4 mg Q4H PRN IV NAUSEA AND/OR VOMITING Last administered on 05/29/19 14:58; Admin Dose 4 MG; Start 05/27/19 at 18:30 Acetaminophen (Tylenol Tab) 500 mg Q6H PRN PO MILD PAIN(1-3)OR ELEVATED TEMP Last administered on 05/28/19 19:57; Admin Dose 500 MG; Start 05/27/19 at 18:30 Albuterol/ Ipratropium (Duoneb) 3 ml Q6H RESP THERAPY PRN HHN SHORTNESS OF BREATH; Start 05/27/19 at 18:30 Lidocaine (Lidoderm) 1 patch DAILY TD Last administered on 05/30/19at 09:14; Admin Dose 1 PATCH; Start 05/27/19 at 18:30 Miscellaneous Information (Pending [facility] Order For Wound Care) This patient meyer... PRN PRN XX WOUND CARE; Start 05/27/19 at 20:00 Digoxin (Digoxin) 0.125 mg DAILY@1300 PO Last administered on 05/29/19at 12:33; Admin Dose 0.125 MG; Start 05/28/19 at 13:00 Furosemide (Lasix) 40 mg BID DIURETICS IV Last administered on 05/30/19at 17:51; Admin Dose 40 MG; Start 05/29/19 at 18:00 Metoprolol Succinate (Toprol Xl) 12.5 mg DAILY PO ; Start 05/30/19 at 09:00 Dextrose/Sodium Chloride 1,000 ml @ 50 mls/hr Q20H IV Last administered on 05/30/19at 15:33; Admin Dose 50 MLS/HR; Start 05/29/19 at 19:30 HUMZA LIAO MD May 30, 2019 18:08
--- NOTE | 2019-05-30 18:31 | PN ---
Date/Time of Note Date/Time of Note DATE: 05/30/19 TIME: 18:26 Assessment/Plan VTE Prophylaxis Risk score (from Ns)>0 risk: 4 SCD applied (from Ns): Yes SCD contraindicated: other Pharmacological prophylaxis: LMWH Lines/Catheters IV Catheter Type (from [facility]): Peripheral IV Central line still needed: No Urinary Cath still in place: No Reason Cath still needed: urinary retention Assessment/Plan Assessment/Plan 1.Dysphagia. unable to eat. Unable to swallow most of the time. Regurgitating even saliva. On and off able to swallow. Severe decrease of voice with substernal pressure sensation severe respiratory distress with worsening of wheezing and inability to sleep. Unable to take medications due to above 2.IHD angina, new onset SC by positive troponin series still high. Discussed with Dr. Alvarez. HX of recent PTCA with one stent and 3 balloon dilatation of narrow coronary arteries(; according to the daughter). Status post stapling of mitral valve 6 months ago in [facility] with improvement of condition immediately after the procedure but still she is having frequent hospitalizations. Although it is evident that the cause is not over drinking possibly medication noncompliance. Discussed with Dr. Alvarez. 3. Dysphagia to solids and sometimes to liquids now to everything. Refuses to eat secondary to pain.. Called Dr. matos [phone] for a ENT con sultation. 4. Pulmonary edema by x-ray with wheezing on admission, improved after lasix. Ejection fraction was at 25-30 %. Improved. 5. History of Hodgkin lymphoma:. 6. Osteoarthritis with pain syndrome 7. Anxiety disorder. 8. Depression with grief reaction-s/p loss of . 9. Urinary incontinence. 10. Osteoporosis. 11. Kyphosis. 12. Postmenopausal syndrome. 13. Anemia with nl iron. 14. Brain atrophy on CT. 15. Left sphenoid sinusitis on CT. 16. Left ventricular hypertrophy. 17. Urinary incontinence with recurrent UTIs. Now with enterococcus species. 18.Cerebrovascular accident, with left facial drooling, left facial weakness, with slurred speech and dysphagia. Mild left upper extremity weakness. 19. Hypertension, now normotensive.Cardiomegaly on cxr 20. Status post left subclavian area pacemaker implantation about 3 months ago. 21. Status post mitral valve endocardial manipulation with stapling of the valves with good clinical results. 22. Recurrent episodes of V. tach now 8 complexes on a monitor and SVT; placed on the monitor but cardiology consult. 23.Weight loss mainly due to of not eating well. 24.Sleeplessness 25.Poor self expression capacity and getting worse. Talks for minutes but unable to conclude talk or be precise. 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 27. Weight loss 20.Medication noncompliance. Result Diagram: 05/27/19 1109 05/28/19 0512 Results 24hrs Laboratory Tests Test 05/30/19 05:01 Carcinoembryonic Antigen 0.7 Subjective 24 Hr Interval Summary Free Text/Dictation dysphagia persists as well as dysphonia. Constitutional: poor po, requiring IVF, requiring O2; No no complaints, No improved, No chills, No diaphoresis, No disoriented, No febrile, No other Eyes: No no complaints, No pain, No discharge, No redness, No visual change, No other ENT: congestion, dysphagia, sore throat; No no complaints, No bleeding, No pain, No discharge, No other Respiratory: cough, shortness of breath; No no complaints, No pain, No pleuritic pain, No sputum, No wheezing, No other Cardiovascular: no complaints, chest pain, edema, lightheadedness, palpitations, paroxysmal nocturnal dyspnea; No orthopenea, No other Gastrointestinal: constipation, decreased appetite, flatus; No no complaints, No pain, No blood, No diarrhea, No nausea, No passing stool, No vomiting, No other Genitourinary: dysuria; No no complaints, No bleeding, No discharge, No flank pain, No hematuria, No other Exam/Review of Systems Exam Vitals Vital Signs Date Temp Pulse Resp B/P (MAP) Pulse Ox O2 O2 Flow FiO2 Time Delivery Rate 05/30/19 97.5 79 19 106/55 98 Room Air 14:54 (72) Intake and Output 05/29/19 05/29/19 05/30/19 1515:00 23:00 07:00 IntakeIntake Total 100 ml 120 ml BalanceBalance 100 ml 120 ml Constitutional: alert, oriented, well developed, non-verbal, frail; No distress, No obese, No other Psych: anxiety, depression; No no complaints, No nl mood/affect, No confusion, No suicidal, No other Head: normocephalic, atraumatic Eyes: EOMI, nl lids; No nl conjunctiva, No nl sclera, No PERRL, No icteric, No fundi, disc, No other ENMT: nl nasal mucosa & septum; No nl external ears & nose, No nl lips & teeth, No mucosa pink and moist, No intubated, No tympanic membranes, No other Neck: bruits; No supple, No non-tender, No jvd, No masses, No thyromegaly, No nuchal rigidity, No other Respiratory: congested cough, diminished breath sounds Cardiovascular: regular rate and rhythm, irregular rhythm; No nl pulses, No bruits, No diastolic murmur, No edema, No gallop, No jugular venous distention (JVD), No murmurs/extra sounds, No rub, No S3, No S4, No other Gastrointestinal: soft, ascites; No nl liver, spleen, No non-tender, No distended, No firm, No hepatomegaly, No mass, No rebound or guarding, No splenomegaly, No surgical scars, No tender, No other Results Results 24hrs Laboratory Tests Test 05/30/19 05:01 Carcinoembryonic Antigen 0.7 Medications Medication Current Medications Aspirin (Aspirin) 81 mg DAILY PO Last administered on 05/30/19 09:09; Admin Dose 81 MG; Start 05/27/19 at 18:30 Clopidogrel Bisulfate (plaVIX) 75 mg DAILY PO Last administered on 05/30/19 09:07; Admin Dose 75 MG; Start 05/27/19 at 18:30 Folic Acid (Folic Acid) 1 mg DAILY PO Last administered on 05/30/19 09:09; Admin Dose 1 MG; Start 05/27/19 at 18:30 Isosorbide Mononitrate (Imdur) 30 mg DAILY PO Last administered on 05/27/19at 18:57; Admin Dose 30 MG; Start 05/27/19 at 18:30 Levothyroxine Sodium (Synthroid) 125 mcg BEFORE BREAKFAST PO ; Start 05/28/19 at 07:00 Magnesium Oxide (Mag-Ox 400) 400 mg DAILY PO Last administered on 05/30/19at 09:10; Admin Dose 400 MG; Start 05/27/19 at 18:30 Megestrol Acetate (Megace) 40 mg TID PO Last administered on 05/30/19 09:09; Admin Dose 40 MG; Start 05/27/19 at 21:00 Nystatin (Nystatin Susp) 5 ml Q4 PO Last administered on 05/29/19 22:34; Admin Dose 5 ML; Start 05/27/19 at 21:00 Potassium Chloride (Micro-K) 8 meq DAILY PO Last administered on 05/30/19 09:09; Admin Dose 8 MEQ; Start 05/27/19 at 18:30 Sacubitril/ Valsartan (Entresto 24 Mg-26 Mg) 1 tab BID PO Last administered on 05/30/19 09:07; Admin Dose 1 TAB; Start 05/27/19 at 21:00 Ondansetron HCl (Zofran Inj) 4 mg Q4H PRN IV NAUSEA AND/OR VOMITING Last administered on 05/29/19 14:58; Admin Dose 4 MG; Start 05/27/19 at 18:30 Acetaminophen (Tylenol Tab) 500 mg Q6H PRN PO MILD PAIN(1-3)OR ELEVATED TEMP Last administered on 05/28/19 19:57; Admin Dose 500 MG; Start 05/27/19 at 18:30 Albuterol/ Ipratropium (Duoneb) 3 ml Q6H RESP THERAPY PRN HHN SHORTNESS OF BREATH; Start 05/27/19 at 18:30 Lidocaine (Lidoderm) 1 patch DAILY TD Last administered on 05/30/19 09:14; Admin Dose 1 PATCH; Start 05/27/19 at 18:30 Miscellaneous Information (Pending [facility] Order For Wound Care) This patient meyer... PRN PRN XX WOUND CARE; Start 05/27/19 at 20:00 Digoxin (Digoxin) 0.125 mg DAILY@1300 PO Last administered on 05/29/19 12:33; Admin Dose 0.125 MG; Start 05/28/19 at 13:00 Furosemide (Lasix) 40 mg BID DIURETICS IV Last administered on 05/30/19 17:51; Admin Dose 40 MG; Start 05/29/19 at 18:00 Metoprolol Succinate (Toprol Xl) 12.5 mg DAILY PO ; Start 05/30/19 at 09:00 Dextrose/Sodium Chloride 1,000 ml @ 50 mls/hr Q20H IV Last administered on 05/30/19at 15:33; Admin Dose 50 MLS/HR; Start 05/29/19 at 19:30 PEDRO KRUSE MD May 30, 2019 18:31
[2019-05-30 20:03] VITALS: BP 93/55; PULSE 93; RESP 18
--- NOTE | 2019-05-30 23:11 | CONS ---
Assessment/Plan Assessment/Plan Hospital Course (Demo Recall) Hodgkin lymphoma- s/p chemotherapy PT HAS HX PROGRESSIVE REFRACTORY DIS POST CHEMO AND IMMUNOTHERAPY, MOST RECENT PET/CT SHOWED SOME IMPROVEMENT RESTAGING- NO PROGRESSION DYSPHAGIA ESOPHAGEAL LESION, PATH BENIGN REVIEW PROCEDURE NOTE CHECK CEA PATH- BENIGN Patient has ulcerated lesion in the proximal esophagus starting from cricopharyngeal sphincter with narrowing of the lumen and this was confirmed on the CT scan of the neck PLAN- GT, ANTIULCER TREATMENT PER GI Anemia WITH COMPONENT ACD monitor Severe respiratory distress improving. HX IHD angina, Low LVEF dropped. Findings most consistent with mild ADHF with associated type II NSTEMI HX Pulmonary edema Osteoarthritis with pain syndrome Anxiety disorder. Depression with grief reaction-s/p loss of . Urinary incontinence. Osteoporosis. Kyphosis. Postmenopausal syndrome. Brain atrophy on CT. Left sphenoid sinusitis on CT. Left ventricular hypertrophy. Urinary incontinence. Cerebrovascular accident, with left facial drooling, left facial weakness, with slurred speech and dysphagia. Mild left upper extremity weakness.mostly corrected. Hypertension, now normotensive. HX of PTCA with one sent and 3 balloon dilatation of narrow coronary arteries(; Medication noncompliance. Consultation Date/Type/Reason Admit Date/Time May 27, 2019 at 13:49 Initial Consult Date Requesting Provider: PEDRO KRUSE MD Date/Time of Note DATE: 05/30/19 TIME: 23:02 24 HR Interval Summary Free Text/Dictation all noted d/w dr KRUSE and DR LIAO D/W SON Exam/Review of Systems Exam Vitals Vital Signs Date Temp Pulse Resp B/P (MAP) Pulse Ox O2 O2 Flow FiO2 Time Delivery Rate 05/30/19 97.9 93 18 93/55 (68) 96 20:03 05/30/19 Room Air 14:54 Intake and Output 05/29/19 05/29/19 05/30/19 1515:00 23:00 07:00 IntakeIntake Total 100 ml 120 ml BalanceBalance 100 ml 120 ml Exam GENERAL: The patient is alert, awake, complaining of difficulty swallowing. NECK: JVP approximately 9 cm of water. CHEST: Fair movement throughout, mild decreased breath sounds at bases bilaterally. HEART: Regular rate and rhythm. Normal S1, S2. Laterally displaced PMI. ABDOMEN: Positive bowel sounds, soft. EXTREMITIES: No edema. Difficult to palpate distal pulses bilaterally, posterior tibial. NO PATH LN-SISI Results Result Diagram: 05/27/19 1109 05/28/19 0512 Results 24hrs Laboratory Tests Test 05/30/19 05:01 Carcinoembryonic Antigen 0.7 Imaging Imaging Lab No: [id number] Date: 05/29/2019 SPECIMEN: Cytology brush of ulcerated lesion of proximal esophagus CLINICAL: Dysphagia GROSS EXAMINATION: Received in 95% alcohol are two smears and an endoscopic brush submitted to Cytology. One cell button is prepared from the fluid. MICROSCOPIC DIAGNOSIS: Proximal esophagus, ulcerated lesion, brushing: -- Benign squamous epithelial cells, neutrophils and red blood cells. -- No fungal organisms are identified in PAS/Light Green stain (positive control concurrently reviewed). -- No malignant cells are identified. /ri Date of Service: 05/29/19; Date Received: 05/29/19 Dictated: 05/30/19; Transcribed: 05/30/19; Sent by Fax: 05/30/19 PROCEDURE: CT Abdomen and Pelvis with contrast. CLINICAL INDICATION: Gastrointestinal mass. TECHNIQUE: Multiple contiguous axial CT images of the abdomen and pelvis were obtained following the administration of 80 cc of Omnipaque-300. Oral contrast was also administered. Coronal and sagittal reconstructions were also performed. DICOM images are available. CTDIvol (mGy): 7.89; Total Exam DLP (mGy-cm): 391.27. One or more of the following dose reduction techniques were utilized: - Automated exposure control. - Adjustment of the mA and/or kV according to patient size. - Use of iterative reconstruction technique. COMPARISON: CT 03/19/2013; CT CHEST 02/24/2013; US 02/23/2013. FINDINGS: Lower thorax: Cardiomegaly. ICD lead within the right ventricle. Mitraclips. Liver: Small cyst within the right hepatic lobe near the diaphragm, unchanged. No enhancing/hypoenhancing lesion. Patent hepatic and portal veins. Biliary: Cholelithiasis. No biliary dilatation. Spleen: Enlarged measuring 13.1 cm in a craniocaudal dimension, decreased in size since 2012 where the spleen measured 17.5 cm. There is a 3.5 cm rounded hypodense mass within the periphery of the lower portion of the spleen. Subtle smaller hypodensities are seen superiorly. Pancreas: Normal. Adrenal Glands: Normal. Urinary: The kidneys are symmetric in size and enhancement. Multi focal scarring is seen bilaterally. There is no hydronephrosis. The bladder is collapsed. Excreted contrast is seen within the bladder lumen. Gastrointestinal: The stomach is collapsed. The small and large intestines are grossly unremarkable. The appendix is normal. Lymph nodes: Shoddy lymph nodes are seen throughout the retroperitoneum and decreased in size since 2013. The largest lymph node measures approximately 10 mm in short axis and is unchanged. Vascular: Atherosclerotic calcification. Peritoneum/mesentery: No free fluid or free air. Reproductive organs: Unremarkable. Musculoskeletal: Mild degenerative changes. Additional comments: None. IMPRESSION: Mildly enlarged spleen, decreased in size since 2013. New splenic masses are now identified. Consider further characterization with MRI abdomen with without contrast. PET scan is an additional option. Shoddy and mildly enlarged retroperitoneal lymph nodes, decreased in size as 2013. Cholelithiasis. ROCEDURE: CT Chest without and with IV contrast CLINICAL INDICATION: Ulcerated growth in the proximal esophagus TECHNIQUE: CT of the chest without and with 100 cc Omnipaque-300 IV contrast. Coronal and sagittal reformatted images. One or more of the following dose red uction techniques were used: automated exposure control, adjustment of the mA and/or kV according to patient size, use of iterative reconstruction technique. DICOM images are available. CTDI 9.7, 11.5 mGy, DLP 683 mGy-cm. COMPARISON: No prior studies are available for comparison. FINDINGS: Lungs: Mild septal thickening, suggestive of mild interstitial pulmonary edema. No acute infiltrate, pleural effusion or pneumothorax. No pulmonary nodule or mass. Cardiovascular: Stable mild cardiomegaly. Status post mitral clip placement and left-sided AICD. Coronary arterial and aortic atherosclerotic calcifications. No thoracic aortic aneurysm or dissection. Lymph nodes: No lymphadenopathy. Mediastinum: Abnormal irregular wall thickening is seen involving proximal/midportion of the esophagus, demonstrating focal ulceration anteriorly to the left of the trachea, concerning for primary esophageal neoplasm. Poorly defined infiltrative soft tissue is seen adjacent to the trachea and great vessels, and also in the right paravertebral region, concerning for neoplastic infiltration. Upper abdomen: Chronic right renal cortical scarring. Musculoskeletal: Degenerative enthesopathy of the spine. No focal osseous lesion. IMPRESSION: 1. 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 Focal area of ulceration is seen anterior and to the left of the trachea. There is concern for direct neoplastic infiltration into paratracheal, right paravertebral, periarterial soft tissues, as above. No gross evidence of distant metastasis is seen in the chest. 2. Mild cardiomegaly. Coronary arterial and aortic atherosclerotic calcifications. 3. Findings suggestive of mild interstitial pulmonary edema. PROCEDURE: CT soft tissue neck with and without contrast CLINICAL INDICATION: Ulcerated growth in the proximal esophagus TECHNIQUE: The study was performed utilizing a GE 64-slice multidetector CT scanner. Direct thin section helically acquired axial sections were obtained through the neck before and after the uneventful intravenous administration of 50 cc cc of Omnipaque-300. Coronal and sagittal reformations were obtained. The images were reviewed on a PACS workstation. The CTDIvol is 8.33 mGy and the DLP is 367.66 mGycm. One or more the following dose reduction techniques were utilized: Automated exposure control, adjustment of the mA/ or kV according to patient's size, or use of iterative reconstruction technique. DICOM images are available for review. COMPARISON: No prior studies are available for comparison. FINDINGS: The nasopharynx, oropharynx and hypopharynx are unremarkable. The larynx is grossly unremarkable. Images of the trachea demonstrate no abnormality of the trachea however posterior to the trachea involving the proximal aspect of the esophagus is a large area of ulceration. The most rightward aspect of the ulceration main represent the esophageal lumen with the left side of the air cavity been very extensive ulceration with diffuse soft tissue density with infiltration of the surrounding mediastinal fat. There is soft tissue density extending from the posterior trachea to the vertebral bodies with soft tissue density extending to and partially encasing the left carotid vessels. There is partial encasement of the right common carotid. Postcontrast images demonstrate no significant enhancement. The ulceration extends along the left side of the trachea, incompletely visualized on the current exam. Soft tissue density extends to the posterior aspect of the thyroid which is not well visualized and is hypodense in appearance without significant enhancement on postcontrast images. This area of soft tissue infiltration measures approximately 3.5 by 4.9 cm. No significant lymphadenopathy is seen. The visualized submandibular and parotid glands are unremarkable. No osteolytic or blastic lesion is evident. 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 Medications Medication Current Medications Aspirin (Aspirin) 81 mg DAILY PO Last administered on 05/30/19 09:09; Admin Dose 81 MG; Start 05/27/19 at 18:30 Clopidogrel Bisulfate (plaVIX) 75 mg DAILY PO Last administered on 05/30/19 09:07; Admin Dose 75 MG; Start 05/27/19 at 18:30 Folic Acid (Folic Acid) 1 mg DAILY PO Last administered on 05/30/19 09:09; Admin Dose 1 MG; Start 05/27/19 at 18:30 Isosorbide Mononitrate (Imdur) 30 mg DAILY PO Last administered on 05/27/19 18:57; Admin Dose 30 MG; Start 05/27/19 at 18:30 Levothyroxine Sodium (Synthroid) 125 mcg BEFORE BREAKFAST PO ; Start 05/28/19 at 07:00 Magnesium Oxide (Mag-Ox 400) 400 mg DAILY PO Last administered on 05/30/19 09:10; Admin Dose 400 MG; Start 05/27/19 at 18:30 Megestrol Acetate (Megace) 40 mg TID PO Last administered on 05/30/19 21:24; Admin Dose 40 MG; Start 05/27/19 at 21:00 Nystatin (Nystatin Susp) 5 ml Q4 PO Last administered on 05/30/19 21:24; Admin Dose 5 ML; Start 05/27/19 at 21:00 Potassium Chloride (Micro-K) 8 meq DAILY PO Last administered on 05/30/19 09:09; Admin Dose 8 MEQ; Start 05/27/19 at 18:30 Sacubitril/ Valsartan (Entresto 24 Mg-26 Mg) 1 tab BID PO Last administered on 05/30/19 09:07; Admin Dose 1 TAB; Start 05/27/19 at 21:00 Ondansetron HCl (Zofran Inj) 4 mg Q4H PRN IV NAUSEA AND/OR VOMITING Last administered on 05/29/19 14:58; Admin Dose 4 MG; Start 05/27/19 at 18:30 Acetaminophen (Tylenol Tab) 500 mg Q6H PRN PO MILD PAIN(1-3)OR ELEVATED TEMP Last administered on 05/28/19 19:57; Admin Dose 500 MG; Start 05/27/19 at 18:30 Albuterol/ Ipratropium (Duoneb) 3 ml Q6H RESP THERAPY PRN HHN SHORTNESS OF BREATH; Start 05/27/19 at 18:30 Lidocaine (Lidoderm) 1 patch DAILY TD Last administered on 05/30/19 09:14; Admin Dose 1 PATCH; Start 05/27/19 at 18:30 Miscellaneous Information (Pending [facility] Order For Wound Care) This patient meyer... PRN PRN XX WOUND CARE; Start 05/27/19 at 20:00 Digoxin (Digoxin) 0.125 mg DAILY@1300 PO Last administered on 05/29/19 12:33; Admin Dose 0.125 MG; Start 05/28/19 at 13:00 Furosemide (Lasix) 40 mg BID DIURETICS IV Last administered on 05/30/19 17:51; Admin Dose 40 MG; Start 05/29/19 at 18:00 Metoprolol Succinate (Toprol Xl) 12.5 mg DAILY PO ; Start 05/30/19 at 09:00 Dextrose/Sodium Chloride 1,000 ml @ 50 mls/hr Q20H IV Last administered on 05/30/19 15:33; Admin Dose 50 MLS/HR; Start 05/29/19 at 19:30 KALPANA ANGELES MD May 30, 2019 23:10
[2019-05-31 00:30] VITALS: BP 92/53; PULSE 76; RESP 18
[2019-05-31] MEDS: ACETAMINOPHEN 500 MG TAB PO PRN (00:43)
[2019-05-31] MEDS: NYSTATIN SUSP 5 ML CUP PO SCH ×7 (00:50→21:00)
[2019-05-31 04:35] VITALS: BP 127/77; PULSE 51; RESP 18
[2019-05-31] MEDS: LEVOTHYROXINE 125 MCG TAB PO SCH (07:00)
[2019-05-31 07:28] VITALS: BP 108/64; PULSE 87; RESP 22
[2019-05-31] MEDS: POTASSIUM CHLORIDE (SR) 8 MEQ CAP PO SCH ×2 (09:00→09:58)
[2019-05-31] MEDS: CLOPIDOGREL 75 MG TAB PO SCH ×2 (09:00→09:57)
[2019-05-31] MEDS: ISOSORBIDE MONONITRATE(SR)30 MG TAB PO SCH (09:00)
[2019-05-31] MEDS: ASPIRIN 81 MG TAB PO SCH ×2 (09:00→09:57)
[2019-05-31] MEDS: FOLIC ACID 1 MG TAB PO SCH ×2 (09:00→10:06)
[2019-05-31] MEDS: MEGESTROL 40 MG TAB PO SCH ×4 (09:00→21:00)
[2019-05-31] MEDS: SACUBITRIL/VALSARTAN (24mg-26mg) TABLET PO SCH ×3 (09:00→21:00)
[2019-05-31] MEDS: METOPROLOL (XL) 25 MG TAB PO SCH ×3 (09:00→16:31)
[2019-05-31] MEDS: MAGNESIUM OXIDE 400 MG TAB PO SCH ×2 (09:00→09:57)
[2019-05-31] MEDS: FUROSEMIDE 40 MG INJ IV SCH ×2 (09:56→17:57)
[2019-05-31] MEDS: LIDOCAINE 5% PATCH TD SCH (10:39)
--- NOTE | 2019-05-31 11:10 | CONS ---
Assessment/Plan Assessment/Plan Hospital Course (Demo Recall) IMPRESSION: 1. Preoperative evaluation prior to endoscopy for evaluation of the patient's dysphagia and odynophagia, in a patient that has a severely depressed ejection fraction, mild infiltrates on her chest x-ray but not in gross decompensated congestive heart failure, able to lie flat with good saturations and a recent catheterization in April revealing patent stents.- Now post-op s/p endoscopy with findings of esophageal mass 2. Cardiomyopathy with severely depressed left ventricular ejection fraction. 3. Congestive heart failure, systolic, [id number]. 4. Dysphagia and odynophagia. 5. Vocal cord paresis. 6. Hypothyroidism. 7. History of percutaneous transluminal coronary angioplasty and stent placement, patent via catheterization 04/2019, with most recent stents actually placed in 2016, with a type 2 non-ST elevated myocardial infarction prior to last catheterization, and a stress test 02/2019, revealing no reversible ischemia with ejection fraction of 19%. 8. [id number]. 9. Lymphoma Hodgkin's ongoing status post chemotherapy. 10. History of cerebrovascular accident. 11. Hypertension. 12. Dyslipidemia. 13. Hypothyroidism. 14. Urinary incontinence. 15. Psychiatric disorder. 16. Nonsustained ventricular tachycardia-no recurrence, neg trop x 3 17. Status post implantable cardioverter-defibrillator. Recc: -Tele -serial ecg's -Contineu toprol/entresto/digoxin/asa/plavix as tolerated/able to swallow -Continue imdur as tolerated but if remains with marginal BP may d/c -f/u path on esophageal mass -Continue lasix diuresis with patient on D5 IVF due to poor po intake -? G tube placement Consultation Date/Type/Reason Admit Date/Time May 27, 2019 at 13:49 Initial Consult Date 05/29/19 Type of Consult Cardiology Reason for Consultation CHF Requesting Provider: PEDRO KRUSE MD Date/Time of Note DATE: 05/31/19 TIME: 11:07 Exam/Review of Systems Vital Signs Vitals Vital Signs Date Temp Pulse Resp B/P (MAP) Pulse Ox O2 O2 Flow FiO2 Time Delivery Rate 05/31/19 97.8 87 22 108/64 96 Room Air 07:28 (79) Intake and Output 05/30/19 05/30/19 05/31/19 1515:00 23:00 07:00 IntakeIntake Total 1230 ml 300 ml BalanceBalance 1230 ml 300 ml Exam Exam Review of Systems: CONSTITUTIONAL: No fevers, chills. PULMONARY: No sob CARDIOVASCULAR: No chest pain/palpitations GASTROINTESTINAL: No nausea/vomiting. GENITOURINARY: No hematuria/dysuria. MUSCULOSKELETAL: No myagias/arthalgias. PSYCHIATRIC: The patient denies depression. NEUROLOGIC: No weakness Constitutional: alert Psych: no complaints Head: normocephalic ENMT: mucosa pink and moist Neck: supple, jvd (9 cm water) Respiratory: diminished breath sounds (at bases/B) Cardiovascular: regular rate and rhythm Gastrointestinal: soft, non-tender Musculoskeletal: muscle tone (normal) Extremities: edema (none) 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: lethargic (somewhat), other (No focal deficits) Labs Result Diagram: 05/27/19 1109 05/28/19 0512 Medications Medications Current Medications Aspirin (Aspirin) 81 mg DAILY PO Last administered on 05/30/19 09:09; Admin Dose 81 MG; Start 05/27/19 at 18:30 Clopidogrel Bisulfate (plaVIX) 75 mg DAILY PO Last administered on 05/30/19 09:07; Admin Dose 75 MG; Start 05/27/19 at 18:30 Folic Acid (Folic Acid) 1 mg DAILY PO Last administered on 05/30/19 09:09; Admin Dose 1 MG; Start 05/27/19 at 18:30 Isosorbide Mononitrate (Imdur) 30 mg DAILY PO Last administered on 05/27/19at 18:57; Admin Dose 30 MG; Start 05/27/19 at 18:30 Levothyroxine Sodium (Synthroid) 125 mcg BEFORE BREAKFAST PO ; Start 05/28/19 at 07:00 Magnesium Oxide (Mag-Ox 400) 400 mg DAILY PO Last administered on 05/30/19 09:10; Admin Dose 400 MG; Start 05/27/19 at 18:30 Megestrol Acetate (Megace) 40 mg TID PO Last administered on 05/30/19 21:24; Admin Dose 40 MG; Start 05/27/19 at 21:00 Nystatin (Nystatin Susp) 5 ml Q4 PO Last administered on 05/30/19 21:24; Admin Dose 5 ML; Start 05/27/19 at 21:00 Potassium Chloride (Micro-K) 8 meq DAILY PO Last administered on 05/30/19 09:09; Admin Dose 8 MEQ; Start 05/27/19 at 18:30 Sacubitril/ Valsartan (Entresto 24 Mg-26 Mg) 1 tab BID PO Last administered on 05/30/19 09:07; Admin Dose 1 TAB; Start 05/27/19 at 21:00 Ondansetron HCl (Zofran Inj) 4 mg Q4H PRN IV NAUSEA AND/OR VOMITING Last administered on 05/29/19 14:58; Admin Dose 4 MG; Start 05/27/19 at 18:30 Acetaminophen (Tylenol Tab) 500 mg Q6H PRN PO MILD PAIN(1-3)OR ELEVATED TEMP L ast administered on 05/31/19 00:43; Admin Dose 500 MG; Start 05/27/19 at 18:30 Albuterol/ Ipratropium (Duoneb) 3 ml Q6H RESP THERAPY PRN HHN SHORTNESS OF BREATH; Start 05/27/19 at 18:30 Lidocaine (Lidoderm) 1 patch DAILY TD Last administered on 05/31/19 10:39; Admin Dose 1 PATCH; Start 05/27/19 at 18:30 Miscellaneous Information (Pending [facility] Order For Wound Care) This patient meyer... PRN PRN XX WOUND CARE; Start 05/27/19 at 20:00 Digoxin (Digoxin) 0.125 mg DAILY@1300 PO Last administered on 05/29/19 12:33; Admin Dose 0.125 MG; Start 05/28/19 at 13:00 Furosemide (Lasix) 40 mg BID DIURETICS IV Last administered on 05/31/19 09:56; Admin Dose 40 MG; Start 05/29/19 at 18:00 Metoprolol Succinate (Toprol Xl) 12.5 mg DAILY PO ; Start 05/30/19 at 09:00 Dextrose/Sodium Chloride 1,000 ml @ 50 mls/hr Q20H IV Last administered on 05/30/19 15:33; Admin Dose 50 MLS/HR; Start 05/29/19 at 19:30 ARIEL HOBBS 19, 2019 11:10
[2019-05-31 11:21] VITALS: BP 105/69; PULSE 115; RESP 22
[2019-05-31] MEDS: DEXTROSE 5%-0.45% NACL 1,000 ML IV SCH (11:30)
[2019-05-31] MEDS: DIGOXIN 0.125 MG TAB PO SCH (13:00)
--- NOTE | 2019-05-31 14:57 | CONS ---
Assessment/Plan Assessment/Plan Assessment/Plan (Daily) Assessment/Plan (Daily) IMPRESSION: 1. Dysphagia or failure to thrive, progressive in nature, can swallow her own saliva. 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 Weight loss. 3. Cardiomyopathy with ejection fraction of 20% to 25%. 4. History of Hodgkin's lymphoma. 5. Depression. 6. Kyphosis. 7. Hypertension. 8. Status post left subclavian pacemaker implantation. Plan discussed case with the Dr. Salomon and also with primary MD and the son Patient best option is to put a G-tube before esophagus gets completely closed. Discussed with the son regarding the gastrostomy tube. He is going to discuss with the rest of the family tonight and give me a call tomorrow Consultation Date/Type/Reason Admit Date/Time May 27, 2019 at 13:49 Initial Consult Date Requesting Provider: PEDRO KRUSE MD Date/Time of Note DATE: 05/31/19 TIME: 14:56 24 HR Interval Summary Free Text/Dictation Painful swallowing and also difficulty in swallowing Exam/Review of Systems Exam Vitals Vital Signs Date Temp Pulse Resp B/P (MAP) Pulse Ox O2 O2 Flow FiO2 Time Delivery Rate 05/31/19 97.5 115 22 105/69 Room Air 11:21 (81) 05/31/19 96 07:28 Intake and Output 05/30/19 05/30/19 05/31/19 1515:00 23:00 07:00 IntakeIntake Total 1230 ml 300 ml BalanceBalance 1230 ml 300 ml Results Result Diagram: 05/27/19 1109 05/28/19 0512 Medications Medication Current Medications Aspirin (Aspirin) 81 mg DAILY PO Last administered on 05/30/19at 09:09; Admin Dose 81 MG; Start 05/27/19 at 18:30 Clopidogrel Bisulfate (plaVIX) 75 mg DAILY PO Last administered on 05/30/19at 09:07; Admin Dose 75 MG; Start 05/27/19 at 18:30 Folic Acid (Folic Acid) 1 mg DAILY PO Last administered on 05/30/19at 09:09; Admin Dose 1 MG; Start 05/27/19 at 18:30 Isosorbide Mononitrate (Imdur) 30 mg DAILY PO Last administered on 05/27/19 18:57; Admin Dose 30 MG; Start 05/27/19 at 18:30 Levothyroxine Sodium (Synthroid) 125 mcg BEFORE BREAKFAST PO ; Start 05/28/19 at 07:00 Magnesium Oxide (Mag-Ox 400) 400 mg DAILY PO Last administered on 05/30/19 09:10; Admin Dose 400 MG; Start 05/27/19 at 18:30 Megestrol Acetate (Megace) 40 mg TID PO Last administered on 05/30/19 21:24; Admin Dose 40 MG; Start 05/27/19 at 21:00 Nystatin (Nystatin Susp) 5 ml Q4 PO Last administered on 05/30/19 21:24; Admin Dose 5 ML; Start 05/27/19 at 21:00 Potassium Chloride (Micro-K) 8 meq DAILY PO Last administered on 05/30/19 09:09; Admin Dose 8 MEQ; Start 05/27/19 at 18:30 Sacubitril/ Valsartan (Entresto 24 Mg-26 Mg) 1 tab BID PO Last administered on 05/30/19 09:07; Admin Dose 1 TAB; Start 05/27/19 at 21:00 Ondansetron HCl (Zofran Inj) 4 mg Q4H PRN IV NAUSEA AND/OR VOMITING Last administered on 05/29/19 14:58; Admin Dose 4 MG; Start 05/27/19 at 18:30 Acetaminophen (Tylenol Tab) 500 mg Q6H PRN PO MILD PAIN(1-3)OR ELEVATED TEMP Last administered on 05/31/19 00:43; Admin Dose 500 MG; Start 05/27/19 at 18:30 Albuterol/ Ipratropium (Duoneb) 3 ml Q6H RESP THERAPY PRN HHN SHORTNESS OF BREATH; Start 05/27/19 at 18:30 Lidocaine (Lidoderm) 1 patch DAILY TD Last administered on 05/31/19 10:39; Admin Dose 1 PATCH; Start 05/27/19 at 18:30 Miscellaneous Information (Pending [facility] Order For Wound Care) This patient meyer... PRN PRN XX WOUND CARE; Start 05/27/19 at 20:00 Digoxin (Digoxin) 0.125 mg DAILY@1300 PO Last administered on 05/29/19at 12:33; Admin Dose 0.125 MG; Start 05/28/19 at 13:00 Furosemide (Lasix) 40 mg BID DIURETICS IV Last administered on 05/31/19at 09:56; Admin Dose 40 MG; Start 05/29/19 at 18:00 Metoprolol Succinate (Toprol Xl) 12.5 mg DAILY PO ; Start 05/30/19 at 09:00 Dextrose/Sodium Chloride 1,000 ml @ 50 mls/hr Q20H IV Last administered on 05/30/19at 15:33; Admin Dose 50 MLS/HR; Start 05/29/19 at 19:30 HUMZA LIAO MD May 31, 2019 14:57
[2019-05-31 15:39] VITALS: BP 136/63; PULSE 121; RESP 22
--- NOTE | 2019-05-31 19:42 | PN ---
Date/Time of Note Date/Time of Note DATE: 05/31/19 TIME: 19:34 Assessment/Plan VTE Prophylaxis Risk score (from Nsg)>0 risk: 4 SCD applied (from Ns): Yes SCD contraindicated: other Pharmacological prophylaxis: LMWH Lines/Catheters IV [facility]ter [facility]from [facility] Peripheral IV Central line still needed: No Urinary Cath still in place: No Reason Cath still needed: urinary retention Assessment/Plan Assessment/Plan 1. Dysphagia.Ulceration of the upper esophagus with inability to eat. Unable to swallow most of the time. Regurgitating even saliva. On and off able to swallow. Severe decrease of voice with substernal pressure sensation severe respiratory distress with worsening of wheezing and inability to sleep. Unable to take medications due to above 2.IHD angina, new onset RI by positive troponin series still high. Discussed with Dr. Alvarez. HX of recent PTCA with one stent and 3 balloon dilatation of narrow coronary arteries(; according to the daughter). Status post stapling of mitral valve 6 months ago in [facility] with improvement of condition immediately after the procedure but still she is having frequent hospitalizations. Although it is evident that the cause is not over drinking possibly medication noncompliance. Discussed with Dr. Alvarez. 3. Dysphagia to solids and sometimes to liquids now to everything. Refuses to eat secondary to pain.. Called Dr.David Silver; [phone] for a ENT consultation. 4. Pulmonary edema by x-ray with wheezing on admission, improved after lasix. Ejection fraction was at 25-30 %. Improved. 5. History of Hodgkin lymphoma:. 6. Osteoarthritis with pain syndrome 7. Anxiety disorder. 8. Depression with grief reaction-s/p loss of . 9. Urinary incontinence. 10. Osteoporosis. 11. Kyphosis. 12. Postmenopausal syndrome. 13. Anemia with nl iron. 14. Brain atrophy on CT. 15. Left sphenoid sinusitis on CT. 16. Left ventricular hypertrophy. 17. Urinary incontinence with recurrent UTIs. Now with enterococcus species. 18.Cerebrovascular accident, with left facial drooling, left facial weakness, with slurred speech and dysphagia. Mild left upper extremity weakness. 19. Hypertension, now normotensive.Cardiomegaly on cxr 20. Status post left subclavian area pacemaker implantation about 3 months ago. 21. Status post mitral valve endocardial manipulation with stapling of the valves with good clinical results. 22. Recurrent episodes of V. tach now 8 complexes on a monitor and SVT; placed on the monitor but cardiology consult. 23.Weight loss mainly due to of not eating well. 24.Sleeplessness 25.Poor self expression capacity and getting worse. Talks for minutes but unable to conclude talk or be precise. 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 27. Weight loss 20.Medication noncompliance. Result Diagram: 05/27/19 1109 05/28/19 0512 Subjective 24 Hr Interval Summary Free Text/Dictation Dysphagia. Painful swallowing if swallowing is successful. Pain in the neck and chest area. Pressure sensation of the chest bilaterally. Discussed with the patient the findings of her CT and ENT and GI evaluation. Initially she was refusing this test but now she is eager to listen the findings. It was explaine d that the due to of her lymphoma most probably she developed a stricture of the esophagus and because of that she is unable to swallow. She understood that she has a ulcer of the upper esophagus. Patient was explained that we need to strengthen her now by putting it temporarily G-tube and start to feed her judiciously while maintaining fluid and electrolyte balance taking into account of her low left ventricular ejection fraction. Patient understood but she is reluctant. Discussed with both sounds are Yasmine and Eunice, who are very caring people and during years of follow-up with patient always very nearby sporting on helping her to make decision on sometimes stating sounds are making good decisions. Family is very nuclear.. Discussed with Dr. Salomon to place temporarily G-tube to improve nutritional status and then decide other issues for esophageal procedures along with chemotherapy. Constitutional: improved, poor po, requiring IVF, requiring O2 Eyes: No no complaints, No pain, No discharge, No redness, No visual change, No other ENT: pain, congestion, dysphagia, sore throat; No no complaints, No bleeding, No discharge, No other Respiratory: cough, shortness of breath; No no complaints, No pain, No pleuritic pain, No sputum, No wheezing, No other Cardiovascular: No no complaints, No chest pain, No edema, No lightheadedness, No orthopenea, No palpitations, No paroxysmal nocturnal dyspnea, No other Gastrointestinal: constipation, decreased appetite, flatus, nausea; No no complaints, No pain, No blood, No diarrhea, No passing stool, No vomiting, No other Genitourinary: dysuria; No no complaints, No bleeding, No discharge, No flank pain, No hematuria, No other Musculoskeletal: back pain, bone/joint pain, neck pain; No no complaints, No restricted range of motion, No swelling, No other Skin: pruritis; No no complaints, No bruising, No erythema, No laceration, No rash, No skin lesions, No other Neurologic: No no complaints, No confusion, No dizziness, No focal-weakness, No headache, No syncope, No seizure, No other Endocrine: polyuria, dry skin; No no complaints, No polydypsia, No temp intolerance, No other Lymphatic: No no complaints, No adenopathy, No tender nodes, No lymphadema, No other Psychological: anxiety, confusion, depression; No no complaints, No nl mood/affect, No suicidal, No other Exam/Review of Systems Exam Vitals Vital Signs Date Temp Pulse Resp B/P (MAP) Pulse Ox O2 O2 Flow FiO2 Time Delivery Rate 05/31/19 98.4 121 22 136/63 15:39 (87) 05/31/19 Room Air 11:21 05/31/19 96 07:28 Intake and Output 05/30/19 05/30/19 05/31/19 1414:59 22:59 06:59 IntakeIntake Total 1230 ml 300 ml BalanceBalance 1230 ml 300 ml Constitutional: alert, oriented, well developed, distress, frail; No non-verbal, No obese, No other Psych: anxiety, depression; No no complaints, No nl mood/affect, No confusion, No suicidal, No other Head: normocephalic, atraumatic; No lacerations, No hematomas, No other Eyes: EOMI, nl lids, PERRL; No nl conjunctiva, No nl sclera, No icteric, No fundi, disc, No other ENMT: No nl external ears & nose, No nl lips & teeth, No nl nasal mucosa & septum, No mucosa pink and moist, No intubated, No tympanic membranes, No other Neck: thyromegaly, nuchal rigidity; No supple, No non-tender, No jvd, No bruits, No masses, No other Respiratory: diminished breath sounds; No clear to auscultation, No normal air movement, No congested cough, No crackles/rales, No intercostal retraction, No labored breathing, No respirations, No tactile fremitus, No wheezing, No other Cardiovascular: regular rate and rhythm, edema, jugular venous distention (JVD), systolic murmur; No nl pulses, No bruits, No diastolic murmur, No gallop, No irregular rhythm, No murmurs/extra sounds, No rub, No S3, No S4, No other Gastrointestinal: soft, nl liver, spleen, bowel sounds; No non-tender, No ascites, No distended, No firm, No hepatomegaly, No mass, No rebound or guarding, No splenomegaly, No surgical scars, No tender, No other Musculoskeletal: nl gait and stance, joint tenderness, muscle tone, muscle weakness; No nl extremities to inspection, No range of motion, No spine non-tender, No swelling, No other Extremities: normal pulses; No calf tenderness, No cyanosis, No clubbing, No edema, No pitting pedal edema, No palpable cord, No tenderness, No other 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: SHANK TAPPER II-XII intact (hearing impairment.), lethargic, numbness; No nl mental status, No nl speech, No nl strength, No confused, No DTR's symmetric, No focal weakness, No reflexes, No unresponsive, No other Skin: nl turgor (decreased.), rash or lesions Lymph: nl lymph nodes; No enlarged, No nontender, No other Medications Medication Current Medications Aspirin (Aspirin) 81 mg DAILY PO Last administered on 05/30/19 09:09; Admin Dose 81 MG; Start 05/27/19 at 18:30 Clopidogrel Bisulfate (plaVIX) 75 mg DAILY PO Last administered on 05/30/19 09:07; Admin Dose 75 MG; Start 05/27/19 at 18:30 Folic Acid (Folic Acid) 1 mg DAILY PO Last administered on 05/30/19 09:09; Admin Dose 1 MG; Start 05/27/19 at 18:30 Isosorbide Mononitrate (Imdur) 30 mg DAILY PO Last administered on 05/27/19at 18:57; Admin Dose 30 MG; Start 05/27/19 at 18:30 Levothyroxine Sodium (Synthroid) 125 mcg BEFORE BREAKFAST PO ; Start 05/28/19 at 07:00 Magnesium Oxide (Mag-Ox 400) 400 mg DAILY PO Last administered on 05/30/19 09:10; Admin Dose 400 MG; Start 05/27/19 at 18:30 Megestrol Acetate (Megace) 40 mg TID PO Last administered on 05/30/19 21:24; Admin Dose 40 MG; Start 05/27/19 at 21:00 Nystatin (Nystatin Susp) 5 ml Q4 PO Last administered on 05/30/19 21:24; Admin Dose 5 ML; Start 05/27/19 at 21:00 Potassium Chloride (Micro-K) 8 meq DAILY PO Last administered on 05/30/19 09:09; Admin Dose 8 MEQ; Start 05/27/19 at 18:30 Sacubitril/ Valsartan (Entresto 24 Mg-26 Mg) 1 tab BID PO Last administered on 05/30/19 09:07; Admin Dose 1 TAB; Start 05/27/19 at 21:00 Ondansetron HCl (Zofran Inj) 4 mg Q4H PRN IV NAUSEA AND/OR VOMITING Last administered on 05/29/19 14:58; Admin Dose 4 MG; Start 05/27/19 at 18:30 Acetaminophen (Tylenol Tab) 500 mg Q6H PRN PO MILD PAIN(1-3)OR ELEVATED TEMP Last administered on 05/31/19 00:43; Admin Dose 500 MG; Start 05/27/19 at 18:30 Albuterol/ Ipratropium (Duoneb) 3 ml Q6H RESP THERAPY PRN HHN SHORTNESS OF BREATH; Start 05/27/19 at 18:30 Lidocaine (Lidoderm) 1 patch DAILY TD Last administered on 05/31/19 10:39; Admin Dose 1 PATCH; Start 05/27/19 at 18:30 Miscellaneous Information (Pending [facility] Order For Wound Care) This patient meyer... PRN PRN XX WOUND CARE; Start 05/27/19 at 20:00 Digoxin (Digoxin) 0.125 mg DAILY@1300 PO Last administered on 05/29/19 12:33; Admin Dose 0.125 MG; Start 05/28/19 at 13:00 Furosemide (Lasix) 40 mg BID DIURETICS IV Last administered on 05/31/19 17:57; Admin Dose 40 MG; Start 05/29/19 at 18:00 Metoprolol Succinate (Toprol Xl) 12.5 mg DAILY PO Last administered on 05/31/19at 16:31; Admin Dose 12.5 MG; Start 05/30/19 at 09:00 Dextrose/Sodium Chloride 1,000 ml @ 50 mls/hr Q20H IV Last administered on 05/30/19at 15:33; Admin Dose 50 MLS/HR; Start 05/29/19 at 19:30 PEDRO KRUSE MD May 31, 2019 19:42
[2019-05-31 20:00] VITALS: BP 105/61; PULSE 103; PULSE 110; RESP 20
--- NOTE | 2019-05-31 22:50 | CONS ---
Assessment/Plan Assessment/Plan Hospital Course (Demo Recall) Hodgkin lymphoma- s/p chemotherapy PT HAS HX PROGRESSIVE REFRACTORY DIS POST CHEMO AND IMMUNOTHERAPY, MOST RECENT PET/CT SHOWED SOME IMPROVEMENT RESTAGING- OVERALL NO PROGRESSION BUT New splenic masses are now identified. PET scan POST DC DYSPHAGIA ESOPHAGEAL LESION, PATH BENIGN REVIEW PROCEDURE NOTE CEA- P PATH- BENIGN Patient has ulcerated lesion in the proximal esophagus starting from cricopharyngeal sphincter with narrowing of the lumen and this was confirmed on the CT scan of the neck PLAN- GT, ANTIULCER TREATMENT PER GI Anemia WITH COMPONENT ACD monitor Severe respiratory distress improving. HX IHD angina, Low LVEF dropped. Findings most consistent with mild ADHF with associated type II NSTEMI HX Pulmonary edema Osteoarthritis with pain syndrome Anxiety disorder. Depression with grief reaction-s/p loss of . Urinary incontinence. Osteoporosis. Kyphosis. Postmenopausal syndrome. Brain atrophy on CT. Left sphenoid sinusitis on CT. Left ventricular hypertrophy. Urinary incontinence. Cerebrovascular accident, with left facial drooling, left facial weakness, with slurred speech and dysphagia. Mild left upper extremity weakness.mostly corrected. Hypertension, now normotensive. HX of PTCA with one sent and 3 balloon dilatation of narrow coronary arteries(; Medication noncompliance. Consultation Date/Type/Reason Admit Date/Time May 27, 2019 at 13:49 Initial Consult Date Requesting Provider: PEDRO KRUSE MD Date/Time of Note DATE: 05/31/19 TIME: 22:43 24 HR Interval Summary Free Text/Dictation ALL NOTED D/W PT AND FAMILY Exam/Review of Systems Exam Vitals Vital Signs Date Temp Pulse Resp B/P (MAP) Pulse Ox O2 O2 Flow FiO2 Time Delivery Rate 05/31/19 110 20:00 05/31/19 98.3 20 105/61 96 20:00 (76) 05/31/19 Room Air 11:21 Intake and Output 05/30/19 05/30/19 05/31/19 1414:59 22:59 06:59 IntakeIntake Total 1230 ml 300 ml BalanceBalance 1230 ml 300 ml Results Result Diagram: 05/27/19 1109 05/28/19 0512 Imaging Imaging PROCEDURE: CT Abdomen and Pelvis with contrast. CLINICAL INDICATION: Gastrointestinal mass. TECHNIQUE: Multiple contiguous axial CT images of the abdomen and pelvis were obtained following the administration of 80 cc of Omnipaque-300. Oral contrast was also administered. Coronal and sagittal reconstructions were also performed. DICOM images are available. CTDIvol (mGy): 7.89; Total Exam DLP (mGy-cm): 391.27. One or more of the following dose reduction techniques were utilized: - Automated exposure control. - Adjustment of the mA and/or kV according to patient size. - Use of iterative reconstruction technique. COMPARISON: CT 03/19/2013; CT CHEST 02/24/2013; US 02/23/2013. FINDINGS: Lower thorax: Cardiomegaly. ICD lead within the right ventricle. Mitraclips. Liver: Small cyst within the right hepatic lobe near the diaphragm, unchanged. No enhancing/hypoenhancing lesion. Patent hepatic and portal veins. Biliary: Cholelithiasis. No biliary dilatation. Spleen: Enlarged measuring 13.1 cm in a craniocaudal dimension, decreased in size since 2013 where the spleen measured 17.5 cm. There is a 3.5 cm rounded hypodense mass within the periphery of the lower portion of the spleen. Subtle smaller hypodensities are seen superiorly. Pancreas: Normal. Adrenal Glands: Normal. Urinary: The kidneys are symmetric in size and enhancement. Multi focal scarring is seen bilaterally. There is no hydronephrosis. The bladder is collapsed. Excreted contrast is seen within the bladder lumen. Gastrointestinal: The stomach is collapsed. The small and large intestines are grossly unremarkable. The appendix is normal. Lymph nodes: Shoddy lymph nodes are seen throughout the retroperitoneum and decreased in size since 2013. The largest lymph node measures approximately 10 mm in short axis and is unchanged. Vascular: Atherosclerotic calcification. Peritoneum/mesentery: No free fluid or free air. Reproductive organs: Unremarkable. Musculoskeletal: Mild degenerative changes. Additional comments: None. IMPRESSION: Mildly enlarged spleen, decreased in size since 2013. New splenic masses are now identified. Consider further characterization with MRI abdomen with without contrast. PET scan is an additional option. Shoddy and mildly enlarged retroperitoneal lymph nodes, decreased in size as 2013. Cholelithiasis. PROCEDURE: CT soft tissue neck with and without contrast CLINICAL INDICATION: Ulcerated growth in the proximal esophagus TECHNIQUE: The study was performed utilizing a GE 64-slice multidetector CT scanner. Direct thin section helically acquired axial sections were obtained through the neck before and after the uneventful intravenous administration of 50 cc cc of Omnipaque-300. Coronal and sagittal reformations were obtained. The images were reviewed on a PACS workstation. The CTDIvol is 8.33 mGy and the DLP is 367.66 mGycm. One or more the following dose reduction techniques were utilized: Automated e xposure control, adjustment of the mA/ or kV according to patient's size, or use of iterative reconstruction technique. DICOM images are available for review. COMPARISON: No prior studies are available for comparison. FINDINGS: The nasopharynx, oropharynx and hypopharynx are unremarkable. The larynx is grossly unremarkable. Images of the trachea demonstrate no abnormality of the trachea however posterior to the trachea involving the proximal aspect of the esophagus is a large area of ulceration. The most rightward aspect of the ulceration main represent the esophageal lumen with the left side of the air cavity been very extensive ulceration with diffuse soft tissue density with inf iltration of the surrounding mediastinal fat. There is soft tissue density extending from the posterior trachea to the vertebral bodies with soft tissue density extending to and partially encasing the left carotid vessels. There is partial encasement of the right common carotid. Postcontrast images demonstrate no significant enhancement. The ulceration extends along the left side of the trachea, incompletely visualized on the current exam. Soft tissue density extends to the posterior aspect of the thyroid which is not well visualized and is hypodense in appearance without significant enhancement on postcontrast images. This area of soft tissue infiltration measures approximately 3.5 by 4.9 cm. No significant lymphadenopathy is seen. The visualized submandibular and parotid glands are unremarkable. No osteolytic or blastic lesion is evident. Medications Medication Current Medications Aspirin (Aspirin) 81 mg DAILY PO Last administered on 05/30/19 09:09; Admin Dose 81 MG; Start 05/27/19 at 18:30 Clopidogrel Bisulfate (plaVIX) 75 mg DAILY PO Last administered on 05/30/19 09:07; Admin Dose 75 MG; Start 05/27/19 at 18:30 Folic Acid (Folic Acid) 1 mg DAILY PO Last administered on 05/30/19 09:09; Admin Dose 1 MG; Start 05/27/19 at 18:30 Isosorbide Mononitrate (Imdur) 30 mg DAILY PO Last administered on 05/27/19 18:57; Admin Dose 30 MG; Start 05/27/19 at 18:30 Magnesium Oxide (Mag-Ox 400) 400 mg DAILY PO Last administered on 05/30/19 09:10; Admin Dose 400 MG; Start 05/27/19 at 18:30 Megestrol Acetate (Megace) 40 mg TID PO Last administered on 05/30/19 21:24; Admin Dose 40 MG; Start 05/27/19 at 21:00 Nystatin (Nystatin Susp) 5 ml Q4 PO Last administered on 05/30/19 21:24; Admin Dose 5 ML; Start 05/27/19 at 21:00 Potassium Chloride (Micro-K) 8 meq DAILY PO Last administered on 05/30/19 09:09; Admin Dose 8 MEQ; Start 05/27/19 at 18:30 Sacubitril/ Valsartan (Entresto 24 Mg-26 Mg) 1 tab BID PO Last administered on 05/30/19 09:07; Admin Dose 1 TAB; Start 05/27/19 at 21:00 Ondansetron HCl (Zofran Inj) 4 mg Q4H PRN IV NAUSEA AND/OR VOMITING Last administered on 05/29/19 14:58; Admin Dose 4 MG; Start 05/27/19 at 18:30 Acetaminophen (Tylenol Tab) 500 mg Q6H PRN PO MILD PAIN(1-3)OR ELEVATED TEMP Last administered on 05/31/19 00:43; Admin Dose 500 MG; Start 05/27/19 at 18:30 Albuterol/ Ipratropium (Duoneb) 3 ml Q6H RESP THERAPY PRN HHN SHORTNESS OF BREATH; Start 05/27/19 at 18:30 Lidocaine (Lidoderm) 1 patch DAILY TD Last administered on 05/31/19 10:39; Admin Dose 1 PATCH; Start 05/27/19 at 18:30 Miscellaneous Information (Pending [facility] Order For Wound Care) This patient meyer... PRN PRN XX WOUND CARE; Start 05/27/19 at 20:00 Digoxin (Digoxin) 0.125 mg DAILY@1300 PO Last administered on 05/29/19 12:33; Admin Dose 0.125 MG; Start 05/28/19 at 13:00 Furosemide (Lasix) 40 mg BID DIURETICS IV Last administered on 05/31/19 17:57; Admin Dose 40 MG; Start 05/29/19 at 18:00 Metoprolol Succinate (Toprol Xl) 12.5 mg DAILY PO Last administered on 05/31/19at 16:31; Admin Dose 12.5 MG; Start 05/30/19 at 09:00 Dextrose/Sodium Chloride 1,000 ml @ 50 mls/hr Q20H IV Last administered on 05/30/19at 15:33; Admin Dose 50 MLS/HR; Start 05/29/19 at 19:30 Levothyroxine Sodium (Synthroid) 100 mcg BEFORE BREAKFAST PO ; Start 06/01/19 at 07:00 KALPANA ANGELES MD May 31, 2019 22:50
[2019-06-01] VITALS (15 sets, daily range): BP systolic 93–115; BP diastolic 50–71; PULSE 88–108; RESP 16–22
[2019-06-01] MEDS: NYSTATIN SUSP 5 ML CUP PO SCH ×6 (00:29→21:00)
[2019-06-01] MEDS: FUROSEMIDE 40 MG INJ IV SCH ×2 (05:46→17:13)
[2019-06-01] MEDS: LEVOTHYROXINE 100 MCG TAB PO SCH (06:01)
[2019-06-01] MEDS: DEXTROSE 5%-0.45% NACL 1,000 ML IV SCH (07:30)
--- NOTE | 2019-06-01 07:34 | CONS ---
Assessment/Plan Assessment/Plan Hospital Course (Demo Recall) 73 yo female 1. Dysphagia or failure to thrive, progressive - Patient has ulcerated lesion in the proximal esophagus starting from cricopharyngeal sphincter with narrowing of the lumen and this was confirmed on the CT scan of the neck 2. Weight loss. 3. Cardiomyopathy with ejection fraction of 20% to 25%. 4. History of Hodgkin's lymphoma. 5. Depression. 6. Kyphosis. 7. Hypertension. 8. Status post left subclavian pacemaker implantation. Plan Family has agreed to and signed consent for G tube please keep NPO CBC, CMP, INR stat Please hold plavix and asa for PEG Dr Alejandro will try to do PEG today Pt examined and plan of care d/w Dr. Alejandro Consultation Date/Type/Reason Admit Date/Time May 27, 2019 at 13:49 Initial Consult Date Requesting Provider: PEDRO KRUSE MD Date/Time of Note DATE: 06/01/19 TIME: 07:24 Exam/Review of Systems Exam Vitals Vital Signs Date Temp Pulse Resp B/P (MAP) Pulse Ox O2 O2 Flow FiO2 Time Delivery Rate 06/01/19 98.1 99 19 100/52 95 03:29 (68) 05/31/19 Room Air 11:21 Intake and Output 05/31/19 05/31/19 06/01/19 1515:00 23:00 07:00 IntakeIntake Total 350 ml 700 ml 125 ml BalanceBalance 350 ml 700 ml 125 ml Constitutional: alert Psych: no complaints Head: normocephalic Eyes: PERRL Respiratory: normal air movement Cardiovascular: regular rate and rhythm Gastrointestinal: soft, non-tender Results Result Diagram: 05/28/19 0512 Medications Medication Current Medications Aspirin (Aspirin) 81 mg DAILY PO Last administered on 05/30/19at 09:09; Admin Dose 81 MG; Start 05/27/19 at 18:30 Clopidogrel Bisulfate (plaVIX) 75 mg DAILY PO Last administered on 05/30/19at 09:07; Admin Dose 75 MG; Start 05/27/19 at 18:30 Folic Acid (Folic Acid) 1 mg DAILY PO Last administered on 05/30/19at 09:09; Admin Dose 1 MG; Start 05/27/19 at 18:30 Isosorbide Mononitrate (Imdur) 30 mg DAILY PO Last administered on 05/27/19 18:57; Admin Dose 30 MG; Start 05/27/19 at 18:30 Magnesium Oxide (Mag-Ox 400) 400 mg DAILY PO Last administered on 05/30/19 09:10; Admin Dose 400 MG; Start 05/27/19 at 18:30 Megestrol Acetate (Megace) 40 mg TID PO Last administered on 05/30/19 21:24; Admin Dose 40 MG; Start 05/27/19 at 21:00 Nystatin (Nystatin Susp) 5 ml Q4 PO Last administered on 05/30/19 21:24; Admin Dose 5 ML; Start 05/27/19 at 21:00 Potassium Chloride (Micro-K) 8 meq DAILY PO Last administered on 05/30/19 09:09; Admin Dose 8 MEQ; Start 05/27/19 at 18:30 Sacubitril/ Valsartan (Entresto 24 Mg-26 Mg) 1 tab BID PO Last administered on 05/30/19 09:07; Admin Dose 1 TAB; Start 05/27/19 at 21:00 Ondansetron HCl (Zofran Inj) 4 mg Q4H PRN IV NAUSEA AND/OR VOMITING Last administered on 05/29/19 14:58; Admin Dose 4 MG; Start 05/27/19 at 18:30 Acetaminophen (Tylenol Tab) 500 mg Q6H PRN PO MILD PAIN(1-3)OR ELEVATED TEMP Last administered on 05/31/19 00:43; Admin Dose 500 MG; Start 05/27/19 at 18:30 Albuterol/ Ipratropium (Duoneb) 3 ml Q6H RESP THERAPY PRN HHN SHORTNESS OF BREATH; Start 05/27/19 at 18:30 Lidocaine (Lidoderm) 1 patch DAILY TD Last administered on 05/31/19 10:39; Ad min Dose 1 PATCH; Start 05/27/19 at 18:30 Miscellaneous Information (Pending [facility] Order For Wound Care) This patient meyer... PRN PRN XX WOUND CARE; Start 05/27/19 at 20:00 Digoxin (Digoxin) 0.125 mg DAILY@1300 PO Last administered on 05/29/19 12:33; Admin Dose 0.125 MG; Start 05/28/19 at 13:00 Furosemide (Lasix) 40 mg BID DIURETICS IV Last administered on 05/31/19at 17:57; Admin Dose 40 MG; Start 05/29/19 at 18:00 Metoprolol Succinate (Toprol Xl) 12.5 mg DAILY PO Last administered on 9at 16:31; Admin Dose 12.5 MG; Start 05/30/19 at 09:00 Dextrose/Sodium Chloride 1,000 ml @ 50 mls/hr Q20H IV Last administered on 05/30/19at 15:33; Admin Dose 50 MLS/HR; Start 05/29/19 at 19:30 Levothyroxine Sodium (Synthroid) 100 mcg BEFORE BREAKFAST PO ; Start 06/01/19 at 07:00 ERIN SUAREZ Jun 01, 2019 07:34
[2019-06-01] MEDS: FOLIC ACID 1 MG TAB PO SCH (08:10)
[2019-06-01] MEDS: SACUBITRIL/VALSARTAN (24mg-26mg) TABLET PO SCH ×2 (08:10→21:56)
[2019-06-01] MEDS: MAGNESIUM OXIDE 400 MG TAB PO SCH (08:10)
[2019-06-01] MEDS: MEGESTROL 40 MG TAB PO SCH ×3 (08:10→21:56)
[2019-06-01] MEDS: POTASSIUM CHLORIDE (SR) 8 MEQ CAP PO SCH (08:10)
[2019-06-01] MEDS: ISOSORBIDE MONONITRATE(SR)30 MG TAB PO SCH (08:10)
[2019-06-01] MEDS: METOPROLOL (XL) 25 MG TAB PO SCH (08:11)
[2019-06-01] MEDS: LIDOCAINE 5% PATCH TD SCH (10:04)
--- NOTE | 2019-06-01 11:39 | CONS ---
Consult Date/Type/Reason Admit Date/Time May 27, 2019 at 13:49 Initial Consult Date Requesting Provider: PEDRO KRUSE MD Date/Time of Note DATE: 06/01/19 TIME: 11:35 Subjective NO acute evens - pt npo now for procedure - no CP now - conservative rx planned - family at bedside - aware of prognosis. ROS: No fever, no chills, no nausea, no vomiting, no diarrhea/constipation - mild SOB + recent weight loss Objective Vitals Vital Signs Date Temp Pulse Resp B/P (MAP) Pulse Ox O2 O2 Flow FiO2 Time Delivery Rate 06/01/19 98.9 103 19 96/56 (69) 97 11:14 05/31/19 Room Air 11:21 Intake and Output 05/31/19 05/31/19 06/01/19 1515:00 23:00 07:00 IntakeIntake Total 350 ml 700 ml 125 ml BalanceBalance 350 ml 700 ml 125 ml Exam General: WN/WD/NAD, AOx 3 HEENT: Unicetric/atraumatic/EOMI (follow commands) NECK: JVD elevated, no thyromegaly Lymph: no lymphadenopathy HEART: regular with no S3, II/ systolic murmur at apex - mild SOB LUNGS: Coarse sounds ABD: soft, NT, ND, +BS : Intact Neuro: non focal SKIN: chronic changes EXT: trace edema Results/Medications Result Diagram: 06/01/19 0753 06/01/19 0753 Results 24 hrs Laboratory Tests Test 06/01/19 07:53 White Blood Count 7.8 Red Blood Count 4.88 Hemoglobin 13.0 Hematocrit 41.0 Mean Corpuscular Volume 84.0 Mean Corpuscular Hemoglobin 26.6 L Mean Corpuscular Hemoglobin Concent 31.7 L Red Cell Distribution Width 19.7 H Platelet Count 207 Mean Platelet Volume 11.4 H Immature Granulocytes % 0.400 Neutrophils % 78.6 H Lymphocytes % 9.3 L Monocytes % 10.4 Eosinophils % 0.9 Basophils % 0.4 Nucleated Red Blood Cells % 0.0 Immature Granulocytes # 0.030 Neutrophils # 6.2 Lymphocytes # 0.7 L Monocytes # 0.8 Eosinophils # 0.1 Basophils # 0.0 Nucleated Red Blood Cells # 0.0 Prothrombin Time 13.0 Prothrombin Time Ratio 1.0 INR International Normalized Ratio 0.97 Sodium Level 144 Potassium Level 3.5 Chloride Level 104 Carbon Dioxide Level 28 Anion Gap 12 Blood Urea Nitrogen 13 Creatinine 0.89 Est Glomerular Filtrat Rate mL/min Glucose Level 110 Calcium Level 10.1 Home Meds Active Scripts Fenofibrate* (Fenofibrate*) 200 Mg Cap, 200 MG PO DAILY for 30 Days, #30 CAP Prov:PEDRO KRUSE MD 09/16/18 Digoxin* (Lanoxin*) 0.125 Mg Tablet, 0.125 MG PO DAILY for 30 Days, #30 TAB Prov:PEDRO KRUSE MD 09/16/18 Potassium Chloride* (Potassium Chloride*) 8 Meq Capsule.er, 8 MEQ PO DAILY for 30 Days, #30 CAP Prov:PEDRO KRUSE MD 09/16/18 Isosorbide Mononitrate* (Isosorbide Mononitrate*) 30 Mg Tab.er.24h, 30 MG PO DAILY for 30 Days, #30 TAB Prov:PEDRO KRUSE MD 09/16/18 Clopidogrel Bisulfate (Clopidogrel) 75 Mg Tablet, 75 MG PO DAILY, #30 TAB Prov:PEDRO KRUSE MD 09/16/18 Folic Acid* (Folic Acid*) 1 Mg Tablet, 1 MG PO DAILY for 30 Days, #30 TAB Prov:PEDRO KRUSE MD 09/16/18 Aspirin* (Aspirin* Chew) 81 Mg Tab.chew, 81 MG PO DAILY for 30 Days, #30 TAB.CHEW Prov:PEDRO KRUSE MD 09/16/18 Reported Medications Nystatin (Nystatin) 100,000 Unit/1 Ml Oral.susp, 5 ML PO Q4, #60 ML 05/27/19 Acetaminophen with Codeine (Acetaminop-Codeine 120-12 mg/5) 118 Ml Solution, 5 ML PO Q4 for PAIN 05/27/19 Megestrol Acetate* (Megestrol Acetate*) 40 Mg Tablet, 40 MG PO TID for APPETITE, TAB 05/27/19 Furosemide* (Furosemide*) 40 Mg Tablet, 40 MG PO BID, TAB 05/27/19 Levothyroxine Sodium* (Levothyroxine Sodium*) 125 Mcg Tablet, 125 MCG PO BEFORE BREAKFAST, #30 TAB 02/11/19 Esomeprazole Mag Trihydrate (Nexium) 40 Mg Capsule.dr 40 MG PO DAILY, #30 CAP 02/11/19 Magnesium Oxide* (Magnesium Oxide*) 400 Mg Tablet, 400 MG PO DAILY, TAB 02/11/19 Discontinued Reported Medications Lorazepam* (Lorazepam*) 0.5 Mg Tablet, 0.5 MG PO Q8 PRN for ANXIETY, TAB 02/11/19 Ondansetron Hcl* (Ondansetron Hcl*) 4 Mg Tablet, 4 MG PO Q6H PRN for nausea/vomiting, TAB 02/11/19 Ergocalciferol* (Drisdol* (Vitamin D2)) 50,000 Unit Capsule, 91905 UNIT PO Q7D for 30 Days, #4 CAP 08/04/16 Discontinued Scripts Ipratropium-Albuterol (Ipratropium-Albuterol) 0.5-3 Mg/3 Ml Ampul.neb, 3 ML HHN Q4H RESP THERAPY PRN for SHORTNESS OF BREATH for 30 Days, #90 Prov:PEDRO KRUSE MD 09/16/18 Albuterol Sulfate* (Albuterol Sulfate* Neb) 0.083%-3 Ml Neb, 2.5 MG HHN Q8H RESP THERAPY for 90 Days, #90 CAP 2 Refills Prov:PEDRO KRUSE MD 09/16/18 Furosemide* (Furosemide*) 40 Mg Tablet, 40 MG PO DAILY for 30 Days, #30 TAB Prov:PEDOR KRUSE MD 09/16/18 Spironolactone* (Aldactone*) 25 Mg Tablet, 25 MG PO DAILY, #30 TAB Prov:PEDRO KRUSE MD 09/16/18 Megestrol Acetate* (Megace*) 40 Mg Tab, 40 MG PO BID for 60 Days, #30 TAB Prov:PEDRO KRUSE MD 09/16/18 Acetaminophen* (Tylenol*) 500 Mg Tab, 500 MG PO Q8 PRN for pain and temp. more then 99F for 30 Days, #90 TAB Prov:PEDRO KRUSE MD 09/16/18 Metoprolol Tartrate* (Lopressor*) 50 Mg Tab, 50 MG PO BID, #60 TAB Prov:PEDRO KRUSE MD 09/16/18 Losartan-Hydrochlorothiazide (Losartan-HCTZ) 100-25 Mg Tab, 1 TAB PO DAILY for 30 Days, #30 TAB Prov:PEDRO KRUSE MD 09/16/18 Medications Current Medications Aspirin (Aspirin) 81 mg DAILY PO Last administered on 05/30/19 09:09; Admin Dose 81 MG; Start 05/27/19 at 18:30; Status Hold Clopidogrel Bisulfate (plaVIX) 75 mg DAILY PO Last administered on 05/30/19 09:07; Admin Dose 75 MG; Start 05/27/19 at 18:30; Status Hold Folic Acid (Folic Acid) 1 mg DAILY PO Last administered on 05/30/19 09:09; Admin Dose 1 MG; Start 05/27/19 at 18:30 Isosorbide Mononitrate (Imdur) 30 mg DAILY PO Last administered on 05/27/19 18:57; Admin Dose 30 MG; Start 05/27/19 at 18:30 Magnesium Oxide (Mag-Ox 400) 400 mg DAILY PO Last administered on 05/30/19 09:10; Admin Dose 400 MG; Start 05/27/19 at 18:30 Megestrol Acetate (Megace) 40 mg TID PO Last administered on 05/30/19 21:24; Admin Dose 40 MG; Start 05/27/19 at 21:00 Nystatin (Nystatin Susp) 5 ml Q4 PO Last administered on 05/30/19 21:24; Admin Dose 5 ML; Start 05/27/19 at 21:00 Potassium Chloride (Micro-K) 8 meq DAILY PO Last administered on 05/30/19 09:09; Admin Dose 8 MEQ; Start 05/27/19 at 18:30 Sacubitril/ Valsartan (Entresto 24 Mg-26 Mg) 1 tab BID PO Last administered on 05/30/19 09:07; Admin Dose 1 TAB; Start 05/27/19 at 21:00 Ondansetron HCl (Zofran Inj) 4 mg Q4H PRN IV NAUSEA AND/OR VOMITING Last administered on 05/29/19 14:58; Admin Dose 4 MG; Start 05/27/19 at 18:30 Acetaminophen (Tylenol Tab) 500 mg Q6H PRN PO MILD PAIN(1-3)OR ELEVATED TEMP Last administered on 7/19/19at 00:43; Admin Dose 500 MG; Start 05/27/19 at 18:30 Albuterol/ Ipratropium (Duoneb) 3 ml Q6H RESP THERAPY PRN HHN SHORTNESS OF BREATH; Start 05/27/19 at 18:30 Lidocaine (Lidoderm) 1 patch DAILY TD Last administered on 06/01/19at 10:04; Admin Dose 1 PATCH; Start 05/27/19 at 18:30 Miscellaneous Information (Pending [facility] Order For Wound Care) This patient meyer... PRN PRN XX WOUND CARE; Start 05/27/19 at 20:00 Digoxin (Digoxin) 0.125 mg DAILY@1300 PO Last administered on 05/29/19at 12:33; Admin Dose 0.125 MG; Start 05/28/19 at 13:00 Furosemide (Lasix) 40 mg BID DIURETICS IV Last administered on 05/31/19 17:57; Admin Dose 40 MG; Start 05/29/19 at 18:00 Metoprolol Succinate (Toprol Xl) 12.5 mg DAILY PO Last administered on 05/31/19at 16:31; Admin Dose 12.5 MG; Start 05/30/19 at 09:00 Dextrose/Sodium Chloride 1,000 ml @ 50 mls/hr Q20H IV Last administered on 05/30/19at 15:33; Admin Dose 50 MLS/HR; Start 05/29/19 at 19:30 Levothyroxine Sodium (Synthroid) 100 mcg BEFORE BREAKFAST PO ; Start 06/01/19 at 07:00 Assessment/Plan Hospital Course (Demo Recall) 1. Preoperative evaluation prior to endoscopy for evaluation of the patient's dysphagia and odynophagia, in a patient that has a severely depressed ejection fraction, mild infiltrates on her chest x-ray but not in gross decompensated congestive heart failure, able to lie flat with good saturations and a recent catheterization in April revealing patent stents.- Now post-op s/p endoscopy with findings of esophageal mass - PEG placement today. 2. Cardiomyopathy with severely depressed left ventricular ejection fraction- con't to keep euvolemic. 3. Congestive heart failure, systolic, [id number]. 4. Dysphagia and odynophagia. 5. Vocal cord paresis. 6. Hypothyroidism. 7. History of percutaneous transluminal coronary angioplasty and stent placement, patent via catheterization 04/2019, with most recent stents actually placed in 2017, with a type 2 non-ST elevated myocardial infarction prior to last catheterization, and a stress test 02/2019, revealing no reversible ischemia with ejection fraction of 19% - no active CP now. 8. [id number]. 9. Lymphoma Hodgkin's ongoing status post chemotherapy - hematology follows. 10. History of cerebrovascular accident. 11. Hypertension. 12. Dyslipidemia. 13. Hypothyroidism. 14. Urinary incontinence. 15. Psychiatric disorder. 16. Nonsustained ventricular tachycardia-no recurrence, neg trop x 3 17. Status post implantable cardioverter-defibrillator. BEULAH MONTGOMERY MD Jun 01, 2019 11:39
[2019-06-01] MEDS: DIGOXIN 0.125 MG TAB PO SCH (12:26)
--- NOTE | 2019-06-01 13:07 | CONS ---
Assessment/Plan Assessment/Plan Hospital Course (Demo Recall) Hodgkin lymphoma- s/p chemotherapy PT HAS HX PROGRESSIVE REFRACTORY DIS POST CHEMO AND IMMUNOTHERAPY, MOST RECENT PET/CT SHOWED SOME IMPROVEMENT RESTAGING- OVERALL NO PROGRESSION BUT New splenic masses are now identified. PET scan POST DC DYSPHAGIA ESOPHAGEAL LESION, PATH BENIGN REVIEW PROCEDURE NOTE CEA- P PATH- BENIGN Patient has ulcerated lesion in the proximal esophagus starting from cricopharyngeal sphincter with narrowing of the lumen and this was confirmed on the CT scan of the neck PLAN- GT, ANTIULCER TREATMENT PER GI Anemia WITH COMPONENT ACD monitor Severe respiratory distress improving. HX IHD angina, Low LVEF dropped. Findings most consistent with mild ADHF with associated type II NSTEMI HX Pulmonary edema Osteoarthritis with pain syndrome Anxiety disorder. Depression with grief reaction-s/p loss of . Urinary incontinence. Osteoporosis. Kyphosis. Postmenopausal syndrome. Brain atrophy on CT. Left sphenoid sinusitis on CT. Left ventricular hypertrophy. Urinary incontinence. Cerebrovascular accident, with left facial drooling, left facial weakness, with slurred speech and dysphagia. Mild left upper extremity weakness.mostly corrected. Hypertension, now normotensive. HX of PTCA with one sent and 3 balloon dilatation of narrow coronary arteries(; Medication noncompliance. Consultation Date/Type/Reason Admit Date/Time May 27, 2019 at 13:49 Initial Consult Date Requesting Provider: PEDRO KRUSE MD Date/Time of Note DATE: 06/01/19 TIME: 13:07 24 HR Interval Summary Free Text/Dictation ALL NOTED NAD WEAK Exam/Review of Systems Exam Vitals Vital Signs Date Temp Pulse Resp B/P (MAP) Pulse Ox O2 O2 Flow FiO2 Time Delivery Rate 06/01/19 98.9 103 19 96/56 (69) 97 11:14 05/31/19 Room Air 11:21 Intake and Output 05/31/19 05/31/19 06/01/19 1515:00 23:00 07:00 IntakeIntake Total 350 ml 700 ml 125 ml BalanceBalance 350 ml 700 ml 125 ml Exam GENERAL: The patient is alert, awake, complaining of difficulty swallowing. NECK: JVP approximately 9 cm of water. CHEST: Fair movement throughout, mild decreased breath sounds at bases bilaterally. HEART: Regular rate and rhythm. Normal S1, S2. Laterally displaced PMI. ABDOMEN: Positive bowel sounds, soft. EXTREMITIES: No edema. Difficult to palpate distal pulses bilaterally, posterior tibial. NO PATH [id number] Results Result Diagram: 06/01/19 0753 06/01/19 0753 Results 24hrs Laboratory Tests Test 06/01/19 07:53 White Blood Count 7.8 Red Blood Count 4.88 Hemoglobin 13.0 Hematocrit 41.0 Mean Corpuscular Volume 84.0 Mean Corpuscular Hemoglobin 26.6 L Mean Corpuscular Hemoglobin Concent 31.7 L Red Cell Distribution Width 19.7 H Platelet Count 207 Mean Platelet Volume 11.4 H Immature Granulocytes % 0.400 Neutrophils % 78.6 H Lymphocytes % 9.3 L Monocytes % 10.4 Eosinophils % 0.9 Basophils % 0.4 Nucleated Red Blood Cells % 0.0 Immature Granulocytes # 0.030 Neutrophils # 6.2 Lymphocytes # 0.7 L Monocytes # 0.8 Eosinophils # 0.1 Basophils # 0.0 Nucleated Red Blood Cells # 0.0 Prothrombin Time 13.0 Prothrombin Time Ratio 1.0 INR International Normalized Ratio 0.97 Sodium Level 144 Potassium Level 3.5 Chloride Level 104 Carbon Dioxide Level 28 Anion Gap 12 Blood Urea Nitrogen 13 Creatinine 0.89 Est Glomerular Filtrat Rate mL/min Glucose Level 110 Calcium Level 10.1 Medications Medication Current Medications Aspirin (Aspirin) 81 mg DAILY PO Last administered on 05/30/19 09:09; Admin Dose 81 MG; Start 05/27/19 at 18:30; Status Hold Clopidogrel Bisulfate (plaVIX) 75 mg DAILY PO Last administered on 05/30/19 09:07; Admin Dose 75 MG; Start 05/27/19 at 18:30; Status Hold Folic Acid (Folic Acid) 1 mg DAILY PO Last administered on 05/30/19 09:09; Admin Dose 1 MG; Start 05/27/19 at 18:30 Isosorbide Mononitrate (Imdur) 30 mg DAILY PO Last administered on 05/27/19 18:57; Admin Dose 30 MG; Start 05/27/19 at 18:30 Magnesium Oxide (Mag-Ox 400) 400 mg DAILY PO Last administered on 05/30/19 09:10; Admin Dose 400 MG; Start 05/27/19 at 18:30 Megestrol Acetate (Megace) 40 mg TID PO Last administered on 05/30/19 21:24; Admin Dose 40 MG; Start 05/27/19 at 21:00 Nystatin (Nystatin Susp) 5 ml Q4 PO Last administered on 05/30/19 21:24; Admin Dose 5 ML; Start 05/27/19 at 21:00 Potassium Chloride (Micro-K) 8 meq DAILY PO Last administered on 05/30/19 09:09; Admin Dose 8 MEQ; Start 05/27/19 at 18:30 Sacubitril/ Valsartan (Entresto 24 Mg-26 Mg) 1 tab BID PO Last administered on 05/30/19 09:07; Admin Dose 1 TAB; Start 05/27/19 at 21:00 Ondansetron HCl (Zofran Inj) 4 mg Q4H PRN IV NAUSEA AND/OR VOMITING Last administered on 05/29/19 14:58; Admin Dose 4 MG; Start 05/27/19 at 18:30 Acetaminophen (Tylenol Tab) 500 mg Q6H PRN PO MILD PAIN(1-3)OR ELEVATED TEMP Last administered on 05/31/19 00:43; Admin Dose 500 MG; Start 05/27/19 at 18:30 Albuterol/ Ipratropium (Duoneb) 3 ml Q6H RESP THERAPY PRN HHN SHORTNESS OF BREATH; Start 05/27/19 at 18:30 Lidocaine (Lidoderm) 1 patch DAILY TD Last administered on 06/01/19 10:04; Admin Dose 1 PATCH; Start 05/27/19 at 18:30 Miscellaneous Information (Pending [facility] Order For Wound Care) This patient meyer... PRN PRN XX WOUND CARE; Start 05/27/19 at 20:00 Digoxin (Digoxin) 0.125 mg DAILY@1300 PO Last administered on 05/29/19 12:33; Admin Dose 0.125 MG; Start 05/28/19 at 13:00 Furosemide (Lasix) 40 mg BID DIURETICS IV Last administered on 05/31/19 17:57; Admin Dose 40 MG; Start 05/29/19 at 18:00 Metoprolol Succinate (Toprol Xl) 12.5 mg DAILY PO Last administered on 16:31; Admin Dose 12.5 MG; Start 05/30/19 at 09:00 Dextrose/Sodium Chloride 1,000 ml @ 50 mls/hr Q20H IV Last administered on 05/30/19at 15:33; Admin Dose 50 MLS/HR; Start 05/29/19 at 19:30 Levothyroxine Sodium (Synthroid) 100 mcg BEFORE BREAKFAST PO ; Start 06/01/19 at 07:00 KALPANA ANGELES MD Jun 01, 2019 13:07
--- NOTE | 2019-06-01 14:26 | PREAC ---
Date/Time of Note Date/Time of Note DATE: 06/01/19 TIME: 14:23 Anesthesia Eval and Record Evaluation Time Pre-Procedure Interview DATE: 06/01/19 TIME: 14:23 Age 73 Sex female NPO: 8 hrs Preoperative diagnosis dysphagia Planned procedure EGD, PEG placement Past Medical History Past Medical History: Includes (Hodgkin's lymphoma) Cardio: HTN, Dyslipidemia, LA, CAD, PTCA/Stent, Arrythmia (nonsustained Vtach), PPM/AICD, CHF Endo: Diabetes, Hypothyroid Neuro: CVA (left facial drooping and weakness, with slurred speech and dysphagia. Mild left upper extremity weakness.) Musculoskeletal: Osteoarthritis Psych: Depression, Anxiety Surgery & Anesthesia Issues No known issue Meds Anticoagulation: No Beta Jolly within 24 hr: Yes Reason Beta Jolly not given: Bradycarida, Hypotension Active Scripts Fenofibrate* (Fenofibrate*) 200 Mg Cap, 200 MG PO DAILY for 30 Days, #30 CAP Prov:PEDRO KRUSE MD 09/16/18 Digoxin* (Lanoxin*) 0.125 Mg Tablet, 0.125 MG PO DAILY for 30 Days, #30 TAB Prov:PEDRO KRUSE MD 09/16/18 Potassium Chloride* (Potassium Chloride*) 8 Meq Capsule.er, 8 MEQ PO DAILY for 30 Days, #30 CAP Prov:PEDRO KRUSE MD 09/16/18 Isosorbide Mononitrate* (Isosorbide Mononitrate*) 30 Mg Tab.er.24h, 30 MG PO DAILY for 30 Days, #30 TAB Prov:PEDRO KRUSE MD 09/16/18 Clopidogrel Bisulfate (Clopidogrel) 75 Mg Tablet, 75 MG PO DAILY, #30 TAB Prov:PEDRO KRUSE MD 09/16/18 Folic Acid* (Folic Acid*) 1 Mg Tablet, 1 MG PO DAILY for 30 Days, #30 TAB Prov:PEDRO KRUSE MD 09/16/18 Aspirin* (Aspirin* Chew) 81 Mg Tab.chew, 81 MG PO DAILY for 30 Days, #30 TAB. CHEW Prov:PEDRO KRUSE MD 09/16/18 Reported Medications Nystatin (Nystatin) 100,000 Unit/1 Ml Oral.susp, 5 ML PO Q4, #60 ML 05/27/19 Acetaminophen with Codeine (Acetaminop-Codeine 120-12 mg/5) 118 Ml Solution, 5 ML PO Q4 for PAIN 05/27/19 Megestrol Acetate* (Megestrol Acetate*) 40 Mg Tablet, 40 MG PO TID for APPETITE, TAB 05/27/19 Furosemide* (Furosemide*) 40 Mg Tablet, 40 MG PO BID, TAB 05/27/19 Levothyroxine Sodium* (Levothyroxine Sodium*) 125 Mcg Tablet, 125 MCG PO BEFORE BREAKFAST, #30 TAB 02/11/19 Esomeprazole Mag Trihydrate (Nexium) 40 Mg Capsule.dr, 40 MG PO DAILY, #30 CAP 02/11/19 Magnesium Oxide* (Magnesium Oxide*) 400 Mg Tablet, 400 MG PO DAILY, TAB 02/11/19 Discontinued Reported Medications Lorazepam* (Lorazepam*) 0.5 Mg Tablet, 0.5 MG PO Q8 PRN for ANXIETY, TAB 02/11/19 Ondansetron Hcl* (Ondansetron Hcl*) 4 Mg Tablet, 4 MG PO Q6H PRN for nausea/vomiting, TAB 02/11/19 Ergocalciferol* (Drisdol* (Vitamin D2)) 50,000 Unit Capsule, 22331 UNIT PO Q7D for 30 Days, #4 CAP 08/04/16 Discontinued Scripts Ipratropium-Albuterol (Ipratropium-Albuterol) 0.5-3 Mg/3 Ml Ampul.neb, 3 ML HHN Q4H RESP THERAPY PRN for SHORTNESS OF BREATH for 30 Days, #90 Prov:PEDRO KRUSE MD 09/16/18 Albuterol Sulfate* (Albuterol Sulfate* Neb) 0.083%-3 Ml Neb, 2.5 MG HHN Q8H RESP THERAPY for 90 Days, #90 CAP 2 Refills Prov:PEDRO KRUSE MD 09/16/18 Furosemide* (Furosemide*) 40 Mg Tablet, 40 MG PO DAILY for 30 Days, #30 TAB Prov:PEDRO KRUSE MD 09/16/18 Spironolactone* (Aldactone*) 25 Mg Tablet, 25 MG PO DAILY, #30 TAB Prov:PEDRO KRUSE MD 09/16/18 Megestrol Acetate* (Megace*) 40 Mg Tab, 40 MG PO BID for 60 Days, #30 TAB Prov:PEDRO KRUSE MD 09/16/18 Acetaminophen* (Tylenol*) 500 Mg Tab, 500 MG PO Q8 PRN for pain and temp. more then 99F for 30 Days, #90 TAB Prov:PEDRO KRUSE MD 09/16/18 Metoprolol Tartrate* (Lopressor*) 50 Mg Tab, 50 MG PO BID, #60 TAB Prov:PEDRO KRUSE MD 09/16/18 Losartan-Hydrochlorothiazide (Losartan-HCTZ) 100-25 Mg Tab, 1 TAB PO DAILY for 30 Days, #30 TAB Prov:PEDRO KRUSE MD 09/16/18 Current Medications Aspirin (Aspirin) 81 mg DAILY PO Last administered on 05/30/19 09:09; Admin Dose 81 MG; Start 05/27/19 at 18:30; Status Hold Clopidogrel Bisulfate (plaVIX) 75 mg DAILY PO Last administered on 05/30/19 09:07; Admin Dose 75 MG; Start 05/27/19 at 18:30; Status Hold Folic Acid (Folic Acid) 1 mg DAILY PO Last administered on 05/30/19 09:09; Admin Dose 1 MG; Start 05/27/19 at 18:30 Isosorbide Mononitrate (Imdur) 30 mg DAILY PO Last administered on 05/27/19 18:57; Admin Dose 30 MG; Start 05/27/19 at 18:30 Magnesium Oxide (Mag-Ox 400) 400 mg DAILY PO Last administered on 05/30/19 09:10; Admin Dose 400 MG; Start 05/27/19 at 18:30 Megestrol Acetate (Megace) 40 mg TID PO Last administered on 05/30/19 21:24; Admin Dose 40 MG; Start 05/27/19 at 21:00 Nystatin (Nystatin Susp) 5 ml Q4 PO Last administered on 05/30/19 21:24; Admin Dose 5 ML; Start 05/27/19 at 21:00 Potassium Chloride (Micro-K) 8 meq DAILY PO Last administered on 05/30/19 09:09; Admin Dose 8 MEQ; Start 05/27/19 at 18:30 Sacubitril/ Valsartan (Entresto 24 Mg-26 Mg) 1 tab BID PO Last administered on 05/30/19 09:07; Admin Dose 1 TAB; Start 05/27/19 at 21:00 Ondansetron HCl (Zofran Inj) 4 mg Q4H PRN IV NAUSEA AND/OR VOMITING Last administered on 05/29/19 14:58; Admin Dose 4 MG; Start 05/27/19 at 18:30 Acetaminophen (Tylenol Tab) 500 mg Q6H PRN PO MILD PAIN(1-3)OR ELEVATED TEMP Last administered on 05/31/19 00:43; Admin Dose 500 MG; Start 05/27/19 at 18:30 Albuterol/ Ipratropium (Duoneb) 3 ml Q6H RESP THERAPY PRN HHN SHORTNESS OF BREATH; Start 05/27/19 at 18:30 Lidocaine (Lidoderm) 1 patch DAILY TD Last administered on 06/01/19 10:04; Admin Dose 1 PATCH; Start 05/27/19 at 18:30 Miscellaneous Information (Pending [facility] Order For Wound Care) This patient meyer... PRN PRN XX WOUND CARE; Start 05/27/19 at 20:00 Digoxin (Digoxin) 0.125 mg DAILY@1300 PO Last administered on 05/29/19 12:33; Admin Dose 0.125 MG; Start 05/28/19 at 13:00 Furosemide (Lasix) 40 mg BID DIURETICS IV Last administered on 05/31/19 17:57; Admin Dose 40 MG; Start 05/29/19 at 18:00 Metoprolol Succinate (Toprol Xl) 12.5 mg DAILY PO Last administered on 05/31/19 16:31; Admin Dose 12.5 MG; Start 05/30/19 at 09:00 Dextrose/Sodium Chloride 1,000 ml @ 50 mls/hr Q20H IV Last administered on 05/30/19 15:33; Admin Dose 50 MLS/HR; Start 05/29/19 at 19:30 Levothyroxine Sodium (Synthroid) 100 mcg BEFORE BREAKFAST PO ; Start 06/01/19 at 07:00 Meds reviewed: Yes Allergies Coded Allergies: vancomycin (Verified Allergy, Mild, REDNESS AND ITCHING, 03/20/18) Allergies Reviewed: Yes Labs/Studies Labs Reviewed: Reviewed by anesthesiologist Result Diagram: 06/01/19 0753 06/01/19 0753 Laboratory Tests 06/01/19 07:53 test: N/A Studies: ECG, CXR, 2D Echo Pre-procedure Exam Last vitals Vital Signs Date Temp Pulse Resp B/P (MAP) Pulse Ox O2 O2 Flow FiO2 Time Delivery Rate 06/01/19 98.9 103 19 96/56 (69) 97 11:14 05/31/19 Room Air 11:21 Airway: Adequate mouth opening, Adequate thyromental dist Mallampati: Mallampati II Teeth: Normal Lung: Normal Heart: Normal ASA Physical Status ASA physical status: 4 Emergency: None Planned Anesthetic General/MAC: Mask Planned Pain Management Parenteral pain med Pre-operative Attestations Prior to commencing anesthesia and surgery, the patient was re-evaluated, there was verification of: *The patient's identity *The results of appropriate recent lab work and preoperative vital signs *The above evaluation not changing prior to induction *Anesthetic plan, risk benefits, alternative and complications discussed with patient/family; questions answered; patient/family understands, accepts and wishes to proceed. EDWIN CALHOUN MD Jun 01, 2019 14:26
[2019-06-01] MEDS ORDERED: ETOMIDATE 20 MG INJ ONE (15:34)
[2019-06-01] MEDS ORDERED: ONDANSETRON 4 MG INJ ONE (15:35)
[2019-06-01] MEDS ORDERED: METOCLOPRAMIDE 10 MG INJ ONE (15:35)
[2019-06-01] MEDS ORDERED: DEXAMETHASONE 4 MG/ML 1 ML INJ ONE (15:35)
[2019-06-01] MEDS ORDERED: LABETALOL HCL 20MG INJ ONE (15:54)
[2019-06-01] MEDS ORDERED: EPHEDrine 25 MG/5 ML SYG IV PRN (16:00)
[2019-06-01] MEDS ORDERED: ONDANSETRON 4 MG INJ IV PRN (16:00)
[2019-06-01] MEDS ORDERED: LABETALOL HCL 20MG INJ IV PRN (16:00)
[2019-06-01] MEDS ORDERED: FENTAnyl 50 MCG/ML VIAL IV PRN (16:00)
[2019-06-01] MEDS ORDERED: hydrALAzine 20 MG INJ IV PRN (16:00)
[2019-06-01] MEDS ORDERED: morphine 2 MG INJ IV PRN (16:00)
--- NOTE | 2019-06-01 16:05 | RADRPT ---
Vent Rate: 84 bpm RR Interval: 736 msec NV Interval: 165 msec QRS Duration: 89 msec QT Interval: 372 msec QTC Interval: 434 msec P-R-T Mobile: 62 - 8 - 226 degrees Sinus rhythm...normal P axis, V-rate 50- 99 Multiform ventricular premature complexes...short R-R, variable morphology Electronically Signed By: Riky Fierro
--- NOTE | 2019-06-01 16:18 | PAC ---
Date/Time of Note Date/Time of Note DATE: 06/01/19 TIME: 16:17 Post-Anesthesia Notes Post-Anesthesia Note Last documented vital signs Vital Signs Date Temp Pulse Resp B/P (MAP) Pulse Ox O2 O2 Flow FiO2 Time Delivery Rate 06/01/19 97.9 103 19 114/69 100 16:14 (86) 05/31/19 Room Air 11:21 Activity: WNL Respiratory function: WNL Cardiovascular function: WNL Mental status: Baseline Pain reasonably controlled: Yes Hydration appropriate: Yes Nausea/Vomiting absent: Yes GLADYS CASTREJON MD Jun 01, 2019 16:18
--- NOTE | 2019-06-01 19:20 | PN ---
Date/Time of Note Date/Time of Note DATE: 06/01/19 TIME: 19:17 Assessment/Plan VTE Prophylaxis Risk score (from Nsg)>0 risk: 2 SCD applied (from Ns): Yes SCD contraindicated: other Pharmacological prophylaxis: LMWH Lines/Catheters IV Catheter Type (from Nrs): Saline Lock Central line still needed: No Urinary Cath still in place: No Assessment/Plan Assessment/Plan 1. S/P G-tube placement due to of Dysphagia.Ulceration of the upper es ophagus with inability to eat. Unable to swallow most of the time. Regurgitating even saliva. On and off able to swallow. Severe decrease of voice with substernal pressure sensation severe respiratory distress with worsening of wheezing and inability to sleep. Unable to take medications due to above 2.IHD angina, new onset AK by positive troponin series still high. Discussed with Dr. Alvarez. HX of recent PTCA with one stent and 3 balloon dilatation of narrow coronary arteries(; according to the daughter). Status post stapling of mitral valve 6 months ago in [facility] with improvement of condition immediately after the procedure but still she is having frequent hospitalizations. Although it is evident that the cause is not over drinking possibly medication noncompliance. Discussed with Dr. Alvarez. 3. Dysphagia to solids and sometimes to liquids now to everything. Refuses to eat secondary to pain.. Called Dr.David Silver; [phone] for a ENT consultation. 4. Pulmonary edema by x-ray with wheezing on admission, improved after lasix. Ejection fraction was at 25-30 %. Improved. 5. History of Hodgkin lymphoma:. 6. Osteoarthritis with pain syndrome 7. Anxiety disorder. 8. Depression with grief reaction-s/p loss of . 9. Urinary incontinence. 10. Osteoporosis. 11. Kyphosis. 12. Postmenopausal syndrome. 13. Anemia with nl iron. 14. Brain atrophy on CT. 15. Left sphenoid sinusitis on CT. 16. Left ventricular hypertrophy. 17. Urinary incontinence with recurrent UTIs. Now with enterococcus species. 18.Cerebrovascular accident, with left facial drooling, left facial weakness, with slurred speech and dysphagia. Mild left upper extremity weakness. 19. Hypertension, now normotensive.Cardiomegaly on cxr 20. Status post left subclavian area pacemaker implantation about 3 months ago. 21. Status post mitral valve endocardial manipulation with stapling of the valves with good clinical results. 22. Recurrent episodes of V. tach now 8 complexes on a monitor and SVT; placed on the monitor but cardiology consult. 23.Weight loss mainly due to of not eating well. 24.Sleeplessness 25.Poor self expression capacity and getting worse. Talks for minutes but unable to conclude talk or be precise. 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 27. Weight loss 20.Medication noncompliance. Result Diagram: 06/01/19 0753 06/01/19 0753 Results 24hrs Laboratory Tests Test 06/01/19 07:53 White Blood Count 7.8 Red Blood Count 4.88 Hemoglobin 13.0 Hematocrit 41.0 Mean Corpuscular Volume 84.0 Mean Corpuscular Hemoglobin 26.6 L Mean Corpuscular Hemoglobin Concent 31.7 L Red Cell Distribution Width 19.7 H Platelet Count 207 Mean Platelet Volume 11.4 H Immature Granulocytes % 0.400 Neutrophils % 78.6 H Lymphocytes % 9.3 L Monocytes % 10.4 Eosinophils % 0.9 Basophils % 0.4 Nucleated Red Blood Cells % 0.0 Immature Granulocytes # 0.030 Neutrophils # 6.2 Lymphocytes # 0.7 L Monocytes # 0.8 Eosinophils # 0.1 Basophils # 0.0 Nucleated Red Blood Cells # 0.0 Prothrombin Time 13.0 Prothrombin Time Ratio 1.0 INR International Normalized Ratio 0.97 Sodium Level 144 Potassium Level 3.5 Chloride Level 104 Carbon Dioxide Level 28 Anion Gap 12 Blood Urea Nitrogen 13 Creatinine 0.89 Est Glomerular Filtrat Rate mL/min Glucose Level 110 Calcium Level 10.1 Subjective 24 Hr Interval Summary Free Text/Dictation Mild epigastric pain. Feels discomfort. Understood the necessity of procedure but overall is dissatisfied. Family is very tense. Subjective hx not possible: other (Refused to talk mute also because of her voice changes.) Eyes: No no complaints, No pain, No discharge, No redness, No visual change, No other ENT: pain, dysphagia, sore throat; No no complaints, No bleeding, No congestion, No discharge, No other Respiratory: cough, pleuritic pain, shortness of breath; No no complaints, No pain, No sputum, No wheezing, No other Cardiovascular: lightheadedness; No no complaints, No chest pain, No edema, No orthopenea, No palpitations, No paroxysmal nocturnal dyspnea, No other Gastrointestinal: decreased appetite, passing stool; No no complaints, No pain, No blood, No constipation, No diarrhea, No flatus, No nausea, No vomiting, No other Exam/Review of Systems Exam Vitals Vital Signs Date Temp Pulse Resp B/P (MAP) Pulse Ox O2 O2 Flow FiO2 Time Delivery Rate 06/01/19 97.6 91 17 109/53 94 17:01 (71) 06/01/19 Nasal 2.0 16:45 Cannula Intake and Output 05/31/19 05/31/19 06/01/19 1515:00 23:00 07:00 IntakeIntake Total 350 ml 700 ml 125 ml BalanceBalance 350 ml 700 ml 125 ml Results Results 24hrs Laboratory Tests Test 06/01/19 07:53 White Blood Count 7.8 Red Blood Count 4.88 Hemoglobin 13.0 Hematocrit 41.0 Mean Corpuscular Volume 84.0 Mean Corpuscular Hemoglobin 26.6 L Mean Corpuscular Hemoglobin Concent 31.7 L Red Cell Distribution Width 19.7 H Platelet Count 207 Mean Platelet Volume 11.4 H Immature Granulocytes % 0.400 Neutrophils % 78.6 H Lymphocytes % 9.3 L Monocytes % 10.4 Eosinophils % 0.9 Basophils % 0.4 Nucleated Red Blood Cells % 0.0 Immature Granulocytes # 0.030 Neutrophils # 6.2 Lymphocytes # 0.7 L Monocytes # 0.8 Eosinophils # 0.1 Basophils # 0.0 Nucleated Red Blood Cells # 0.0 Prothrombin Time 13.0 Prothrombin Time Ratio 1.0 INR International Normalized Ratio 0.97 Sodium Level 144 Potassium Level 3.5 Chloride Level 104 Carbon Dioxide Level 28 Anion Gap 12 Blood Urea Nitrogen 13 Creatinine 0.89 Est Glomerular Filtrat Rate mL/min Glucose Level 110 Calcium Level 10.1 Medications Medication Current Medications Aspirin (Aspirin) 81 mg DAILY PO Last administered on 05/30/19at 09:09; Admin Dose 81 MG; Start 05/27/19 at 18:30; Status Hold Clopidogrel Bisulfate (plaVIX) 75 mg DAILY PO Last administered on 05/30/19at 09:07; Admin Dose 75 MG; Start 05/27/19 at 18:30; Status Hold Folic Acid (Folic Acid) 1 mg DAILY PO Last administered on 05/30/19at 09:09; Admin Dose 1 MG; Start 05/27/19 at 18:30 Isosorbide Mononitrate (Imdur) 30 mg DAILY PO Last administered on 05/27/19 18:57; Admin Dose 30 MG; Start 05/27/19 at 18:30 Magnesium Oxide (Mag-Ox 400) 400 mg DAILY PO Last administered on 05/30/19 09:10; Admin Dose 400 MG; Start 05/27/19 at 18:30 Megestrol Acetate (Megace) 40 mg TID PO Last administered on 05/30/19 21:24; Admin Dose 40 MG; Start 05/27/19 at 21:00 Nystatin (Nystatin Susp) 5 ml Q4 PO Last administered on 05/30/19 21:24; Admin Dose 5 ML; Start 05/27/19 at 21:00 Potassium Chloride (Micro-K) 8 meq DAILY PO Last administered on 05/30/19 09:09; Admin Dose 8 MEQ; Start 05/27/19 at 18:30 Sacubitril/ Valsartan (Entresto 24 Mg-26 Mg) 1 tab BID PO Last administered on 05/30/19 09:07; Admin Dose 1 TAB; Start 05/27/19 at 21:00 Ondansetron HCl (Zofran Inj) 4 mg Q4H PRN IV NAUSEA AND/OR VOMITING Last administered on 05/29/19 14:58; Admin Dose 4 MG; Start 05/27/19 at 18:30 Acetaminophen (Tylenol Tab) 500 mg Q6H PRN PO MILD PAIN(1-3)OR ELEVATED TEMP Last administered on 05/31/19 00:43; Admin Dose 500 MG; Start 05/27/19 at 18:30 Albuterol/ Ipratropium (Duoneb) 3 ml Q6H RESP THERAPY PRN HHN SHORTNESS OF BREATH; Start 05/27/19 at 18:30 Lidocaine (Lidoderm) 1 patch DAILY TD Last administered on 06/01/19 10:04; Admin Dose 1 PATCH; Start 05/27/19 at 18:30 [facility] This patient meyer... PRN PRN XX WOUND CARE; Start 05/27/19 at 20:00 Digoxin (Digoxin) 0.125 mg DAILY@1300 PO Last administered on 05/29/19 12:33; Admin Dose 0.125 MG; Start 05/28/19 at 13:00 Furosemide (Lasix) 40 mg BID DIURETICS IV Last administered on 05/31/19 17:57; Admin Dose 40 MG; Start 05/29/19 at 18:00 Metoprolol Succinate (Toprol Xl) 12.5 mg DAILY PO Last administered on 05/31/19 16:31; Admin Dose 12.5 MG; Start 05/30/19 at 09:00 Dextrose/Sodium Chloride 1,000 ml @ 50 mls/hr Q20H IV Last administered on 05/30/19 15:33; Admin Dose 50 MLS/HR; Start 05/29/19 at 19:30 Levothyroxine Sodium (Synthroid) 100 mcg BEFORE BREAKFAST PO ; Start 06/01/19 at 07:00 Morphine Sulfate (morphine) 2 mg PACU PRN IV PAIN LEVEL 1-3 Last administered on 06/01/19at 16:28; Admin Dose 2 MG; Start 06/01/19 at 16:00; Stop 06/01/19 at 23:00 Fentanyl (Sublimaze) 25 mcg PACU ORDER PRN IV MILD PAIN 1-3; Start 06/01/19 at 16:00; Stop 06/01/19 at 23:00 Ondansetron HCl (Zofran Inj) 4 mg PACU ORDER PRN IV NAUSEA/VOMITING; Start 06/01/19 at 16:00; Stop 06/01/19 at 23:00 Labetalol HCl (Labetalol) 5 mg PACU ORDER PRN IV HIGH BLOOD PRESSURE; Start 06/01/19 at 16:00; Stop 06/01/19 at 23:00 Hydralazine HCl (Apresoline) 5 mg PACU ORDER PRN IV HIGH BLOOD PRESSURE; Start 06/01/19 at 16:00; Stop 06/01/19 at 23:00 Ephedrine Sulfate 5 mg PACU ORDER PRN IV BLOOD PRESSURE SUPPORT; Start 06/01/19 at 16:00; Stop 06/01/19 at 23:00 PEDRO KRUSE MD Jun 01, 2019 19:20
[2019-06-02] MEDS: NYSTATIN SUSP 5 ML CUP PO SCH ×6 (01:00→20:56)
[2019-06-02 03:55] VITALS: BP 113/62; PULSE 91; RESP 16
[2019-06-02] MEDS: FUROSEMIDE 40 MG INJ IV SCH ×2 (06:00→17:32)
[2019-06-02] MEDS: LEVOTHYROXINE 100 MCG TAB PO SCH (06:27)
[2019-06-02 07:18] VITALS: BP 115/66; PULSE 84; RESP 18
[2019-06-02] MEDS: ISOSORBIDE MONONITRATE(SR)30 MG TAB PO SCH (08:22)
[2019-06-02] MEDS: MAGNESIUM OXIDE 400 MG TAB PO SCH (08:22)
[2019-06-02] MEDS: MEGESTROL 40 MG TAB PO SCH ×3 (08:22→20:56)
[2019-06-02] MEDS: POTASSIUM CHLORIDE (SR) 8 MEQ CAP PO SCH (08:22)
[2019-06-02] MEDS: FOLIC ACID 1 MG TAB PO SCH (08:22)
[2019-06-02] MEDS: METOPROLOL (XL) 25 MG TAB PO SCH (08:23)
[2019-06-02] MEDS: SACUBITRIL/VALSARTAN (24mg-26mg) TABLET PO SCH ×2 (08:23→20:56)
[2019-06-02] MEDS: LIDOCAINE 5% PATCH TD SCH (08:29)
[2019-06-02 11:05] VITALS: BP 121/68; PULSE 82; RESP 17
--- NOTE | 2019-06-02 11:06 | CONS ---
Consult Date/Type/Reason Admit Date/Time May 27, 2019 at 13:49 Initial Consult Date Requesting Provider: PEDRO KRUSE MD Date/Time of Note DATE: 06/02/19 TIME: 11:04 Subjective NO acute change - pt s/p PEG - with good fxn - tolerated procedure well - feels better today. ROS: No fever, no chills, no nausea, no vomiting, no diarrhea/constipation + weight loss, + fatigue - no CP Objective Vitals Vital Signs Date Temp Pulse Resp B/P (MAP) Pulse Ox O2 O2 Flow FiO2 Time Delivery Rate 06/02/19 98.2 84 18 115/66 98 07:18 (82) 06/02/19 Room Air 03:55 06/01/19 2.0 16:45 Exam General: WN/WD/NAD, AOx 3 HEENT: Unicetric/atraumatic/EOMI (follow commands) NECK: JVD elevated, no thyromegaly Lymph: no lymphadenopathy HEART: regular with no S3, II/ systolic murmur at apex LUNGS: Coarse sounds ABD: soft, NT, ND, +BS - PEG : Intact Neuro: non focal SKIN: chronic changes EXT: trace edema Results/Medications Result Diagram: 06/01/19 0753 06/01/19 0753 Home Meds Active Scripts Fenofibrate* (Fenofibrate*) 200 Mg Cap, 200 MG PO DAILY for 30 Days, #30 CAP Prov:PEDRO KRUSE MD 09/16/18 Digoxin* (Lanoxin*) 0.125 Mg Tablet, 0.125 MG PO DAILY for 30 Days, #30 TAB Prov:PEDRO KRUSE MD 09/16/18 Potassium Chloride* (Potassium Chloride*) 8 Meq Capsule.er, 8 MEQ PO DAILY for 30 Days, #30 CAP Prov:PEDRO KRUSE MD 09/16/18 Isosorbide Mononitrate* (Isosorbide Mononitrate*) 30 Mg Tab.er.24h, 30 MG PO DAILY for 30 Days, #30 TAB Prov:PEDRO KRUSE MD 09/16/18 Clopidogrel Bisulfate (Clopidogrel) 75 Mg Tablet, 75 MG PO DAILY, #30 TAB Prov:PEDRO KRUSE MD 09/16/18 Folic Acid* (Folic Acid*) 1 Mg Tablet, 1 MG PO DAILY for 30 Days, #30 TAB Prov:PEDRO KRUSE MD 09/16/18 Aspirin* (Aspirin* Chew) 81 Mg Tab.chew, 81 MG PO DAILY for 30 Days, #30 TAB.CHEW Prov:PEDRO KRUSE MD 09/16/18 Reported Medications Nystatin (Nystatin) 100,000 Unit/1 Ml Oral.susp, 5 ML PO Q4, #60 ML 05/27/19 Acetaminophen with Codeine (Acetaminop-Codeine 120-12 mg/5) 118 Ml Solution, 5 ML PO Q4 for PAIN 05/27/19 Megestrol Acetate* (Megestrol Acetate*) 40 Mg Tablet, 40 MG PO TID for APPETITE, TAB 05/27/19 Furosemide* (Furosemide*) 40 Mg Tablet, 40 MG PO BID, TAB 05/27/19 Levothyroxine Sodium* (Levothyroxine Sodium*) 125 Mcg Tablet, 125 MCG PO BEFORE BREAKFAST, #30 TAB 02/11/19 Esomeprazole Mag Trihydrate (Nexium) 40 Mg Capsule.dr, 40 MG PO DAILY, #30 CAP 02/11/19 Magnesium Oxide* (Magnesium Oxide*) 400 Mg Tablet, 400 MG PO DAILY, TAB 02/11/19 Discontinued Reported Medications Lorazepam* (Lorazepam*) 0.5 Mg Tablet, 0.5 MG PO Q8 PRN for ANXIETY, TAB 02/11/19 Ondansetron Hcl* (Ondansetron Hcl*) 4 Mg Tablet, 4 MG PO Q6H PRN for nausea/vomiting, TAB 02/11/19 Ergocalciferol* (Drisdol* (Vitamin D2)) 50,000 Unit Capsule, 67990 UNIT PO Q7D for 30 Days, #4 CAP 08/04/16 Discontinued Scripts Ipratropium-Albuterol (Ipratropium-Albuterol) 0.5-3 Mg/3 Ml Ampul.neb, 3 ML HHN Q4H RESP THERAPY PRN for SHORTNESS OF BREATH for 30 Days, #90 Prov:PEDRO KRUSE MD 09/16/18 Albuterol Sulfate* (Albuterol Sulfate* Neb) 0.083%-3 Ml Neb, 2.5 MG HHN Q8H RESP THERAPY for 90 Days, #90 CAP 2 Refills Prov:PEDRO KRUSE MD 09/16/18 Furosemide* (Furosemide*) 40 Mg Tablet, 40 MG PO DAILY for 30 Days, #30 TAB Prov:PEDRO KRUSE MD 09/16/18 Spironolactone* (Aldactone*) 25 Mg Tablet, 25 MG PO DAILY, #30 TAB Prov:PEDRO KRUSE MD 09/16/18 Megestrol Acetate* (Megace*) 40 Mg Tab, 40 MG PO BID for 60 Days, #30 TAB Prov:PEDRO KRUSE MD 09/16/18 Acetaminophen* (Tylenol*) 500 Mg Tab, 500 MG PO Q8 PRN for pain and temp. more then 99F for 30 Days, #90 TAB Prov:PEDRO KRUSE MD 09/16/18 Metoprolol Tartrate* (Lopressor*) 50 Mg Tab, 50 MG PO BID, #60 TAB Prov:PEDRO KRUSE MD 09/16/18 Losartan-Hydrochlorothiazide (Losartan-HCTZ) 100-25 Mg Tab, 1 TAB PO DAILY for 30 Days, #30 TAB Prov:PEDRO KRUSE MD 09/16/18 Medications Current Medications Aspirin (Aspirin) 81 mg DAILY PO Last administered on 05/30/19 09:09; Admin Dose 81 MG; Start 05/27/19 at 18:30; Status Hold Clopidogrel Bisulfate (plaVIX) 75 mg DAILY PO Last administered on 05/30/19 09:07; Admin Dose 75 MG; Start 05/27/19 at 18:30; Status Hold Folic Acid (Folic Acid) 1 mg DAILY PO Last administered on 06/02/19 08:22; Admin Dose 1 MG; Start 05/27/19 at 18:30 Isosorbide Mononitrate (Imdur) 30 mg DAILY PO Last administered on 06/02/19 08:22; Admin Dose 30 MG; Start 05/27/19 at 18:30 Magnesium Oxide (Mag-Ox 400) 400 mg DAILY PO Last administered on 06/02/19 08:22; Admin Dose 400 MG; Start 05/27/19 at 18:30 Megestrol Acetate (Megace) 40 mg TID PO Last administered on 06/02/19 08:22; Admin Dose 40 MG; Start 05/27/19 at 21:00 Nystatin (Nystatin Susp) 5 ml Q4 PO Last administered on 06/02/19 08:23; Admin Dose 5 ML; Start 05/27/19 at 21:00 Potassium Chloride (Micro-K) 8 meq DAILY PO Last administered on 06/02/19 08:22; Admin Dose 8 MEQ; Start 05/27/19 at 18:30 Sacubitril/ Valsartan (Entresto 24 Mg-26 Mg) 1 tab BID PO Last administered on 06/02/19 08:23; Admin Dose 1 TAB; Start 05/27/19 at 21:00 Ondansetron HCl (Zofran Inj) 4 mg Q4H PRN IV NAUSEA AND/OR VOMITING Last administered on 05/29/19 14:58; Admin Dose 4 MG; Start 05/27/19 at 18:30 Acetaminophen (Tylenol Tab) 500 mg Q6H PRN PO MILD PAIN(1-3)OR ELEVATED TEMP Last administered on 05/31/19 00:43; Admin Dose 500 MG; Start 05/27/19 at 18:30 Albuterol/ Ipratropium (Duoneb) 3 ml Q6H RESP THERAPY PRN HHN SHORTNESS OF BREATH; Start 05/27/19 at 18:30 Lidocaine (Lidoderm) 1 patch DAILY TD Last administered on 06/02/19 08:29; Admin Dose 1 PATCH; Start 05/27/19 at 18:30 Miscellaneous Information (Pending [facility] Order For Wound Care) This patient meyer... PRN PRN XX WOUND CARE; Start 05/27/19 at 20:00 Digoxin (Digoxin) 0.125 mg DAILY@1300 PO Last administered on 05/29/19 12:33; Admin Dose 0.125 MG; Start 05/28/19 at 13:00 Furosemide (Lasix) 40 mg BID DIURETICS IV Last administered on 05/31/19 17:57; Admin Dose 40 MG; Start 05/29/19 at 18:00 Metoprolol Succinate (Toprol Xl) 12.5 mg DAILY PO Last administered on 06/02/19 08:23; Admin Dose 12.5 MG; Start 05/30/19 at 09:00 Levothyroxine Sodium (Synthroid) 100 mcg BEFORE BREAKFAST PO Last administered on 06/02/19at 06:27; Admin Dose 100 MCG; Start 06/01/19 at 07:00 Assessment/Plan Hospital Course (Demo Recall) 1. Preoperative evaluation prior to endoscopy for evaluation of the patient's dysphagia and odynophagia, in a patient that has a severely depressed ejection fraction, mild infiltrates on her chest x-ray but not in gross decompensated congestive heart failure, able to lie flat with good saturations and a recent catheterization in April revealing patent stents.- Now post-op s/p endoscopy with findings of esophageal mass - PEG placement - tolerated procedure well. 2. Cardiomyopathy with severely depressed left ventricular ejection fraction- c on't to keep euvolemic. In good fluid status - OK to hydase. 3. Congestive heart failure, systolic, CHRONIC. 4. Dysphagia and odynophagia. 5. Vocal cord paresis. 6. Hypothyroidism. 7. History of percutaneous transluminal coronary angioplasty and stent placement, patent via catheterization 04/2019, with most recent stents actually placed in 2016, with a type 2 non-ST elevated myocardial infarction prior to last catheterization, and a stress test 02/2019, revealing no reversible ischemia with ejection fraction of 19% - no active CP now. NO intervention planned now. 8. [id number]- PEG now. 9. Lymphoma Hodgkin's ongoing status post chemotherapy - hematology follows. 10. History of cerebrovascular accident. 11. Hypertension. 12. Dyslipidemia. 13. Hypothyroidism. 14. Urinary incontinence. 15. Psychiatric disorder. 16. Nonsustained ventricular tachycardia-no recurrence, neg trop x 3 17. Status post implantable cardioverter-defibrillator. BEULAH MONTGOMERY MD Jun 02, 2019 11:06
--- NOTE | 2019-06-02 12:46 | PN ---
Date/Time of Note Date/Time of Note DATE: 06/02/19 TIME: 12:41 Assessment/Plan VTE Prophylaxis Risk score (from Nsg)>0 risk: 5 SCD applied (from Ns): Yes SCD contraindicated: other Pharmacological prophylaxis: LMWH Lines/Catheters IV Catheter Type [facility]from [facility] [place] line still needed: No Urinary Cath still in place: No Reason Cath still needed: urinary retention Assessment/Plan Assessment/Plan 1. S/P G-tube placement due to of Dysphagia.Ulceration of the upper esophagus with inability to eat. Unable to swallow most of the time. Regurgitating even saliva. On and off able to swallow. Severe decrease of voice with substernal pressure sensation severe respiratory distress with worsening of wheezing and inability to sleep. Unable to take medications due to above 2.IHD angina, new onset CA by positive troponin series still high. Discussed with Dr. Alvarez. HX of recent PTCA with one stent and 3 balloon dilatation of narrow coronary arteries(; according to the daughter). Status post stapling of mitral valve 6 months ago in [facility] with improvement of condition immediately after the procedure but still she is having frequent hospitalizations. Although it is evident that the cause is not over drinking possibly medication noncompliance. Discussed with Dr. Alvarez. 3. Dysphagia to solids and sometimes to liquids now to everything. Refuses to eat secondary to pain.. Called Dr.David Silver; [phone] for a ENT consultation. 4. Pulmonary edema by x-ray with wheezing on admission, improved after lasix. Ejection fraction was at 25-30 %. Improved. 5. History of Hodgkin lymphoma:. 6. Osteoarthritis with pain syndrome 7. Anxiety disorder. 8. Depression with grief reaction-s/p loss of . 9. Urinary incontinence. 10. Osteoporosis. 11. Kyphosis. 12. Postmenopausal syndrome. 13. Anemia with nl iron. 14. Brain atrophy on CT. 15. Left sphenoid sinusitis on CT. 16. Left ventricular hypertrophy. 17. Urinary incontinence with recurrent UTIs. Now with enterococcus species. 18.Cerebrovascular accident, with left facial drooling, left facial weakness, with slurred speech and dysphagia. Mild left upper extremity weakness. 19. Hypertension, now normotensive.Cardiomegaly on cxr 20. Status post left subclavian area pacemaker implantation about 3 months ago. 21. Status post mitral valve endocardial manipulation with stapling of the valves with good clinical results. 22. Recurrent episodes of V. tach now 8 complexes on a monitor and SVT; placed on the monitor but cardiology consult. 23.Weight loss mainly due to of not eating well. 24.Sleeplessness 25.Poor self expression capacity and getting worse. Talks for minutes but unable to conclude talk or be precise. 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 27. Weight loss 20.Medication noncompliance. Result Diagram: 06/01/19 0753 06/01/19 0753 Subjective 24 Hr Interval Summary Free Text/Dictation I feel better today. Constitutional: chills, poor po; No no complaints, No improved, No diaphoresis, No disoriented, No febrile, No requiring IVF, No requiring O2, No other Eyes: visual change ENT: pain, congestion, dysphagia, sore throat; No no complaints, No bleeding, No discharge, No other Respiratory: cough, shortness of breath; No no complaints, No pain, No pleuritic pain, No sputum, No wheezing, No other Cardiovascular: edema; No no complaints, No chest pain, No lightheadedness, No orthopenea, No palpitations, No paroxysmal nocturnal dyspnea, No other Gastrointestinal: constipation, decreased appetite, flatus, other (g-tube side nl.); No no complaints, No pain, No blood, No diarrhea, No nausea, No passing stool, No vomiting Genitourinary: dysuria Musculoskeletal: back pain, bone/joint pain; No no complaints, No neck pain, No restricted range of motion, No swelling, No other Skin: pruritis, rash; No no complaints, No bruising, No erythema, No laceration, No skin lesions, No other Neurologic: dizziness; No no complaints, No confusion, No focal-weakness, No headache, No syncope, No seizure, No other Endocrine: No no complaints, No polyuria, No polydypsia, No dry skin, No temp intolerance, No other Exam/Review of Systems Exam Vitals Vital Signs Date Temp Pulse Resp B/P (MAP) Pulse Ox O2 O2 Flow FiO2 Time Delivery Rate 06/02/19 97.9 82 17 121/68 97 11:05 (85) 06/02/19 Room Air 03:55 7/20/19 2.0 16:45 Constitutional: alert, oriented, frail; No well developed, No non-verbal, No distress, No obese, No other Psych: anxiety, depression; No no complaints, No nl mood/affect, No confusion, No suicidal, No other Head: normocephalic, atraumatic; No lacerations, No hematomas, No other Eyes: EOMI, nl lids, PERRL; No nl conjunctiva, No nl sclera, No icteric, No fundi, disc, No other ENMT: nl nasal mucosa & septum; No nl external ears & nose, No nl lips & teeth, No mucosa pink and moist, No intubated, No tympanic membranes, No other Neck: bruits, thyromegaly; No supple, No non-tender, No jvd, No masses, No nuchal rigidity, No other Respiratory: normal air movement, diminished breath sounds; No clear to auscultation, No congested cough, No crackles/rales, No intercostal retraction, No labored breathing, No respirations, No tactile fr emitus, No wheezing, No other Cardiovascular: systolic murmur; No regular rate and rhythm, No nl pulses, No bruits, No diastolic murmur, No edema, No gallop, No irregular rhythm, No jugular venous distention (JVD), No murmurs/extra sounds, No rub, No S3, No S4, No other Gastrointestinal: soft, nl liver, spleen; No non-tender, No ascites, No bowel sounds, No distended, No firm, No hepatomegaly, No mass, No rebound or guarding, No splenomegaly, No surgical scars, No tender, No other Musculoskeletal: joint tenderness, muscle tone, muscle weakness; No nl extremities to inspection, No nl gait and stance, No range of motion, N o spine non-tender, No swelling, No other Extremities: normal pulses; No calf tenderness, No cyanosis, No clubbing, No edema, No pitting pedal edema, No palpable cord, No tenderness, No other 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: 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 intact; No nl mental status, No nl speech, No nl strength, No confused, No DTR's symmetric, No focal weakness, No lethargic, No numbness, No reflexes, No unresponsive, No other Skin: No nl turgor, No rash or lesions, No diaphoresis, No ecchymosis, No laceration, No puncture, No other Medications Medication Current Medications Aspirin (Aspirin) 81 mg DAILY PO Last administered on 05/30/19 09:09; Admin Dose 81 MG; Start 05/27/19 at 18:30; Status Hold Clopidogrel Bisulfate (plaVIX) 75 mg DAILY PO Last administered on 05/30/19 09:07; Admin Dose 75 MG; Start 05/27/19 at 18:30; Status Hold Folic Acid (Folic Acid) 1 mg DAILY PO Last administered on 06/02/19 08:22; Admin Dose 1 MG; Start 05/27/19 at 18:30 Isosorbide Mononitrate (Imdur) 30 mg DAILY PO Last administered on 06/02/19 08:22; Admin Dose 30 MG; Start 05/27/19 at 18:30 Magnesium Oxide (Mag-Ox 400) 400 mg DAILY PO Last administered on 06/02/19 08:22; Admin Dose 400 MG; Start 05/27/19 at 18:30 Megestrol Acetate (Megace) 40 mg TID PO Last administered on 06/02/19 08:22; Admin Dose 40 MG; Start 05/27/19 at 21:00 Nystatin (Nystatin Susp) 5 ml Q4 PO Last administered on 06/02/19 08:23; Admin Dose 5 ML; Start 05/27/19 at 21:00 Potassium Chloride (Micro-K) 8 meq DAILY PO Last administered on 06/02/19 08:22; Admin Dose 8 MEQ; Start 05/27/19 at 18:30 Sacubitril/ Valsartan (Entresto 24 Mg-26 Mg) 1 tab BID PO Last administered on 06/02/19 08:23; Admin Dose 1 TAB; Start 05/27/19 at 21:00 Ondansetron HCl (Zofran Inj) 4 mg Q4H PRN IV NAUSEA AND/OR VOMITING Last administered on 05/29/19 14:58; Admin Dose 4 MG; Start 05/27/19 at 18:30 Acetaminophen (Tylenol Tab) 500 mg Q6H PRN PO MILD PAIN(1-3)OR ELEVATED TEMP Last administered on 05/31/19 00:43; Admin Dose 500 MG; Start 05/27/19 at 18:30 Albuterol/ Ipratropium (Duoneb) 3 ml Q6H RESP THERAPY PRN HHN SHORTNESS OF BREATH; Start 05/27/19 at 18:30 Lidocaine (Lidoderm) 1 patch DAILY TD Last administered on 06/02/19at 08:29; Admin Dose 1 PATCH; Start 05/27/19 at 18:30 Miscellaneous Information (Pending [facility] Order For Wound Care) This patient meyer... PRN PRN XX WOUND CARE; Start 05/27/19 at 20:00 Digoxin (Digoxin) 0.125 mg DAILY@1300 PO Last administered on 05/29/19 12:33; Admin Dose 0.125 MG; Start 05/28/19 at 13:00 Furosemide (Lasix) 40 mg BID DIURETICS IV Last administered on 05/31/19 17:57; Admin Dose 40 MG; Start 05/29/19 at 18:00 Metoprolol Succinate (Toprol Xl) 12.5 mg DAILY PO Last administered on 06/02/19 08:23; Admin Dose 12.5 MG; Start 05/30/19 at 09:00 Levothyroxine Sodium (Synthroid) 100 mcg BEFORE BREAKFAST PO Last administered on 06/02/19 06:27; Admin Dose 100 MCG; Start 06/01/19 at 07:00 PEDRO KRUSE MD Jun 02, 2019 12:46
[2019-06-02] MEDS: DIGOXIN 0.125 MG TAB PO SCH (13:31)
[2019-06-02 15:20] VITALS: BP 98/53; PULSE 91; RESP 18
--- NOTE | 2019-06-02 16:16 | CONS ---
Assessment/Plan Assessment/Plan Assessment/Plan (Daily) Hospital Course (Demo Recall) 73 yo female 1. Dysphagia or failure to thrive, progressive - Patient has ulcerated lesion in the proximal esophagus starting from cricopharyngeal sphincter with narrowing of the lumen and this was confirmed on the CT scan of the neck 2. Weight loss. 3. Cardiomyopathy with ejection fraction of 20% to 25%. 4. History of Hodgkin's lymphoma. 5. Depression. 6. Kyphosis. 7. Hypertension. 8. Status post left subclavian pacemaker implantation. 9. 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 Plan Continue feeding through G-tube and increase it as per dietitian instruction please keep NPO Consultation Date/Type/Reason Admit Date/Time May 27, 2019 at 13:49 Initial Consult Date Requesting Provider: PEDRO KRUSE MD Date/Time of Note DATE: 06/02/19 TIME: 16:15 24 HR Interval Summary Constitutional: improved Exam/Review of Systems Exam Vitals Vital Signs Date Temp Pulse Resp B/P (MAP) Pulse Ox O2 O2 Flow FiO2 Time Delivery Rate 06/02/19 98.2 91 18 98/53 (68) 96 15:20 06/02/19 Room Air 03:55 06/01/19 2.0 16:45 Constitutional: alert, oriented, well developed Psych: no complaints, nl mood/affect Head: normocephalic, atraumatic Eyes: nl conjunctiva, EOMI, nl lids, nl sclera, PERRL ENMT: nl external ears & nose, nl lips & teeth, nl nasal mucosa & septum Neck: supple, non-tender Respiratory: clear to auscultation, normal air movement Cardiovascular: regular rate and rhythm, nl pulses Gastrointestinal: soft, nl liver, spleen, non-tender Musculoskeletal: nl extremities to inspection, nl gait and stance Extremities: normal pulses 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: LOG 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 II-XII intact, nl mental status, nl speech, nl strength Skin: nl turgor; No rash or lesions Lymph: nl lymph nodes Results Result Diagram: 06/01/19 0753 06/01/19 0753 Medications Medication Current Medications Aspirin (Aspirin) 81 mg DAILY PO Last administered on 05/30/19at 09:09; Admin Dose 81 MG; Start 05/27/19 at 18:30; Status Hold Clopidogrel Bisulfate (plaVIX) 75 mg DAILY PO Last administered on 05/30/19 09:07; Admin Dose 75 MG; Start 05/27/19 at 18:30; Status Hold Folic Acid (Folic Acid) 1 mg DAILY PO Last administered on 06/02/19 08:22; Admin Dose 1 MG; Start 05/27/19 at 18:30 Isosorbide Mononitrate (Imdur) 30 mg DAILY PO Last administered on 06/02/19 08:22; Admin Dose 30 MG; Start 05/27/19 at 18:30 Magnesium Oxide (Mag-Ox 400) 400 mg DAILY PO Last administered on 06/02/19 08:22; Admin Dose 400 MG; Start 05/27/19 at 18:30 Megestrol Acetate (Megace) 40 mg TID PO Last administered on 06/02/19 13:31; Admin Dose 40 MG; Start 05/27/19 at 21:00 Nystatin (Nystatin Susp) 5 ml Q4 PO Last administered on 06/02/19 13:31; Admin Dose 5 ML; Start 05/27/19 at 21:00 Potassium Chloride (Micro-K) 8 meq DAILY PO Last administered on 06/02/19 08:22; Admin Dose 8 MEQ; Start 05/27/19 at 18:30 Sacubitril/ Valsartan (Entresto 24 Mg-26 Mg) 1 tab BID PO Last administered on 06/02/19 08:23; Admin Dose 1 TAB; Start 05/27/19 at 21:00 Ondansetron HCl (Zofran Inj) 4 mg Q4H PRN IV NAUSEA AND/OR VOMITING Last administered on 05/29/19 14:58; Admin Dose 4 MG; Start 05/27/19 at 18:30 Acetaminophen (Tylenol Tab) 500 mg Q6H PRN PO MILD PAIN(1-3)OR ELEVATED TEMP Last administered on 05/31/19 00:43; Admin Dose 500 MG; Start 05/27/19 at 18:30 Albuterol/ Ipratropium (Duoneb) 3 ml Q6H RESP THERAPY PRN HHN SHORTNESS OF BREATH; Start 05/27/19 at 18:30 Lidocaine (Lidoderm) 1 patch DAILY TD Last administered on 06/02/19 08:29; Admin Dose 1 PATCH; Start 05/27/19 at 18:30 [facility] This patient meyer... PRN PRN XX WOUND CARE; Start 05/27/19 at 20:00 Digoxin (Digoxin) 0.125 mg DAILY@1300 PO Last administered on 06/02/19at 13:31; Admin Dose 0.125 MG; Start 05/28/19 at 13:00 Furosemide (Lasix) 40 mg BID DIURETICS IV Last administered on 05/31/19at 17:57; Admin Dose 40 MG; Start 05/29/19 at 18:00 Metoprolol Succinate (Toprol Xl) 12.5 mg DAILY PO Last administered on 06/02/19 08:23; Admin Dose 12.5 MG; Start 05/30/19 at 09:00 Levothyroxine Sodium (Synthroid) 100 mcg BEFORE BREAKFAST PO Last administered on 06/02/19 06:27; Admin Dose 100 MCG; Start 06/01/19 at 07:00 HUMZA LIAO MD Jun 02, 2019 16:16
[2019-06-02 19:08] VITALS: BP 104/67; PULSE 82; RESP 18
--- NOTE | 2019-06-02 21:50 | CONS ---
Assessment/Plan Assessment/Plan Hospital Course (Demo Recall) Hodgkin lymphoma- s/p chemotherapy PT HAS HX PROGRESSIVE REFRACTORY DIS POST CHEMO AND IMMUNOTHERAPY, MOST RECENT PET/CT SHOWED SOME IMPROVEMENT RESTAGING- OVERALL NO PROGRESSION BUT New splenic masses are now identified. PET scan POST DC DYSPHAGIA ESOPHAGEAL LESION, PATH BENIGN REVIEW PROCEDURE NOTE CEA- P PATH- BENIGN Patient has ulcerated lesion in the proximal esophagus starting from cricopharyngeal sphincter with narrowing of the lumen and this was confirmed on the CT scan of the neck PLAN- GT, ANTIULCER TREATMENT PER GI per son - 2nd BX was done during GT placement, will follow the result Anemia WITH COMPONENT ACD monitor Severe respiratory distress improving. HX IHD angina, Low LVEF dropped. Findings most consistent with mild ADHF with associated type II NSTEMI HX Pulmonary edema Osteoarthritis with pain syndrome Anxiety disorder. Depression with grief reaction-s/p loss of . Urinary incontinence. Osteoporosis. Kyphosis. Postmenopausal syndrome. Brain atrophy on CT. Left sphenoid sinusitis on CT. Left ventricular hypertrophy. Urinary incontinence. Cerebrovascular accident, with left facial drooling, left facial weakness, with slurred speech and dysphagia. Mild left upper extremity weakness.mostly corrected. Hypertension, now normotensive. HX of PTCA with one sent and 3 balloon dilatation of narrow coronary arteries(; Medication noncompliance. Consultation Date/Type/Reason Admit Date/Time May 27, 2019 at 13:49 Initial Consult Date Requesting Provider: PEDRO KRUSE MD Date/Time of Note DATE: 06/02/19 TIME: 21:49 24 HR Interval Summary Free Text/Dictation ALL NOTED POST GT Exam/Review of Systems Exam Vitals Vital Signs Date Temp Pulse Resp B/P (MAP) Pulse Ox O2 O2 Flow FiO2 Time Delivery Rate 06/02/19 98.2 82 18 104/67 97 19:08 (79) 06/02/19 Room Air 03:55 06/01/19 2.0 16:45 Exam Constitutional: alert, oriented, well developed Psych: no complaints, nl mood/affect Head: normocephalic, atraumatic Eyes: nl conjunctiva, EOMI, nl lids, nl sclera, PERRL ENMT: nl external ears & nose, nl lips & teeth, nl nasal mucosa & septum Neck: supple, non-tender Respiratory: clear to auscultation, normal air movement Cardiovascular: regular rate and rhythm, nl pulses Gastrointestinal: soft, nl liver, spleen, non-tender, GT in place Musculoskeletal: nl extremities to inspection, nl gait and stance Extremities: normal pulses 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: SYSTEM SOFTWARE PROGRAMMER II-XII intact, nl mental status, nl speech, nl strength Skin: nl turgor; No rash or lesions Lymph: nl lymph nodes Results Result Diagram: 06/01/19 0753 06/01/19 0753 Medications Medication Current Medications Aspirin (Aspirin) 81 mg DAILY PO Last administered on 05/30/19 09:09; Admin Dose 81 MG; Start 05/27/19 at 18:30; Status Hold Clopidogrel Bisulfate (plaVIX) 75 mg DAILY PO Last administered on 05/30/19 09:07; Admin Dose 75 MG; Start 05/27/19 at 18:30; Status Hold Folic Acid (Folic Acid) 1 mg DAILY PO Last administered on 06/02/19 08:22; Admin Dose 1 MG; Start 05/27/19 at 18:30 Isosorbide Mononitrate (Imdur) 30 mg DAILY PO Last administered on 06/02/19 08:22; Admin Dose 30 MG; Start 05/27/19 at 18:30 Magnesium Oxide (Mag-Ox 400) 400 mg DAILY PO Last administered on 06/02/19 08:22; Admin Dose 400 MG; Start 05/27/19 at 18:30 Megestrol Acetate (Megace) 40 mg TID PO Last administered on 06/02/19 20:56; Admin Dose 40 MG; Start 05/27/19 at 21:00 Nystatin (Nystatin Susp) 5 ml Q4 PO Last administered on 06/02/19 20:56; Admin Dose 5 ML; Start 05/27/19 at 21:00 Potassium Chloride (Micro-K) 8 meq DAILY PO Last administered on 06/02/19 08:22; Admin Dose 8 MEQ; Start 05/27/19 at 18:30 Sacubitril/ Valsartan (Entresto 24 Mg-26 Mg) 1 tab BID PO Last administered on 06/02/19 20:56; Admin Dose 1 TAB; Start 05/27/19 at 21:00 Ondansetron HCl (Zofran Inj) 4 mg Q4H PRN IV NAUSEA AND/OR VOMITING Last administered on 05/29/19 14:58; Admin Dose 4 MG; Start 05/27/19 at 18:30 Acetaminophen (Tylenol Tab) 500 mg Q6H PRN PO MILD PAIN(1-3)OR ELEVATED TEMP Last administered on 05/31/19 00:43; Admin Dose 500 MG; Start 05/27/19 at 18:30 Albuterol/ Ipratropium (Duoneb) 3 ml Q6H RESP THERAPY PRN HHN SHORTNESS OF BREATH; Start 05/27/19 at 18:30 Lidocaine (Lidoderm) 1 patch DAILY TD Last administered on 06/02/19 08:29; Admin Dose 1 PATCH; Start 05/27/19 at 18:30 Miscellaneous Information (Pending [facility] Order For Wound Care) This patient meyer... PRN PRN XX WOUND CARE; Start 05/27/19 at 20:00 Digoxin (Digoxin) 0.125 mg DAILY@1300 PO Last administered on 06/02/19 13:31; Admin Dose 0.125 MG; Start 05/28/19 at 13:00 Furosemide (Lasix) 40 mg BID DIURETICS IV Last administered on 06/02/19 17:3 2; Admin Dose 40 MG; Start 05/29/19 at 18:00 Metoprolol Succinate (Toprol Xl) 12.5 mg DAILY PO Last administered on 06/02/19 08:23; Admin Dose 12.5 MG; Start 05/30/19 at 09:00 Levothyroxine Sodium (Synthroid) 100 mcg BEFORE BREAKFAST PO Last administered on 06/02/19 06:27; Admin Dose 100 MCG; Start 06/01/19 at 07:00 Albuterol/ Ipratropium (Duoneb) 3 ml Q8H RESP THERAPY HHN ; Start 06/03/19 at 00:00 KALPANA ANGELES MD Jun 02, 2019 21:50
[2019-06-02 23:16] VITALS: BP 113/60; PULSE 95; RESP 18
[2019-06-02] MEDS: ALBUTEROL/IPRATROPIUM (NEB) 3 ML AMP HHN SCH (23:26)
[2019-06-02] MEDS: ONDANSETRON 4 MG INJ IV PRN (23:32)
[2019-06-02] MEDS: ALBUTEROL/IPRATROPIUM (NEB) 3 ML AMP HHN PRN (23:52)
[2019-06-03] VITALS (7 sets, daily range): BP systolic 92–108; BP diastolic 50–66; PULSE 64–96; RESP 16–18
[2019-06-03] MEDS: NYSTATIN SUSP 5 ML CUP PO SCH ×6 (01:00→21:00)
[2019-06-03] MEDS: LEVOTHYROXINE 100 MCG TAB PO SCH (06:41)
[2019-06-03] MEDS: FUROSEMIDE 40 MG INJ IV SCH ×2 (06:41→17:28)
[2019-06-03] MEDS: ALBUTEROL/IPRATROPIUM (NEB) 3 ML AMP HHN SCH ×2 (07:59→16:57)
[2019-06-03] MEDS: FOLIC ACID 1 MG TAB PO SCH (08:52)
[2019-06-03] MEDS: LIDOCAINE 5% PATCH TD SCH (08:52)
[2019-06-03] MEDS: MAGNESIUM OXIDE 400 MG TAB PO SCH (08:52)
[2019-06-03] MEDS: MEGESTROL 40 MG TAB PO SCH ×3 (08:53→21:06)
[2019-06-03] MEDS: POTASSIUM CHLORIDE (SR) 8 MEQ CAP PO SCH (08:53)
[2019-06-03] MEDS: SACUBITRIL/VALSARTAN (24mg-26mg) TABLET PO SCH ×2 (08:53→21:06)
[2019-06-03] MEDS: METOPROLOL (XL) 25 MG TAB PO SCH (08:55)
[2019-06-03] MEDS: ISOSORBIDE MONONITRATE(SR)30 MG TAB PO SCH (08:55)
--- NOTE | 2019-06-03 11:03 | CONS ---
Assessment/Plan Assessment/Plan Hospital Course (Demo Recall) IMPRESSION: 1. Preoperative evaluation prior to endoscopy for evaluation of the patient's dysphagia and odynophagia, in a patient that has a severely depressed ejection fraction, mild infiltrates on her chest x-ray but not in gross decompensated congestive heart failure, able to lie flat with good saturations and a recent catheterization in April revealing patent stents.- Now post-op s/p endoscopy with findings of esophageal mass. Now postop s/p G tube placement 2. Cardiomyopathy with severely depressed left ventricular ejection fraction. 3. Congestive heart failure, systolic, [id number]. 4. Dysphagia and odynophagia. 5. Vocal cord paresis. 6. Hypothyroidism. 7. History of percutaneous transluminal coronary angioplasty and stent placement, patent via catheterization 04/2019, with most recent stents actually placed in 2016, with a type 2 non-ST elevated myocardial infarction prior to last catheterization, and a stress test 02/2019, revealing no reversible ischemia with ejection fraction of 19%. 8. [id number]. 9. Lymphoma Hodgkin's ongoing status post chemotherapy. 10. History of cerebrovascular accident. 11. Hypertension. 12. Dyslipidemia. 13. Hypothyroidism. 14. Urinary incontinence. 15. Psychiatric disorder. 16. Nonsustained ventricular tachycardia-no recurrence, neg trop x 3 17. H/O implantable cardioverter-defibrillator. Recc: -Tele -serial ecg's -Contineu toprol/entresto/digoxin/asa/plavix thru G tube at this time -f/u path on esophageal mass -Continue lasix diuresis with patient now off IVF hydration -wen d/c imdur given marginal BP Consultation Date/Type/Reason Admit Date/Time May 27, 2019 at 13:49 Initial Consult Date 05/29/19 Type of Consult Cardiology Reason for Consultation Cardiomyopathy/CHF Requesting Provider: PEDRO KRUSE MD Date/Time of Note DATE: 06/03/19 TIME: 10:59 Exam/Review of Systems Vital Signs Vitals Vital Signs Date Temp Pulse Resp B/P (MAP) Pulse Ox O2 O2 Flow FiO2 Time Delivery Rate 06/03/19 95 108/64 08:54 (79) 06/03/19 98.2 18 95 07:08 06/03/19 Room Air 05:36 06/02/19 21 23:52 06/01/19 2.0 16:45 Intake and Output 06/02/19 06/02/19 06/03/19 1515:00 23:00 07:00 IntakeIntake Total 500 ml 480 ml OutputOutput Total 2 ml BalanceBalance -2 ml 500 ml 480 ml Exam Exam Review of Systems: CONSTITUTIONAL: No fevers, chills. PULMONARY: No sob CARDIOVASCULAR: No chest pain/palpitations GASTROINTESTINAL: c/o painful swallowing GENITOURINARY: No hematuria/dysuria. MUSCULOSKELETAL: No myagias/arthalgias. PSYCHIATRIC: The patient denies depression. NEUROLOGIC: No weakness Constitutional: alert Psych: no complaints Head: normocephalic ENMT: mucosa pink and moist Neck: supple, jvd (9 cm water) Respiratory: diminished breath sounds (at bases/B) Cardiovascular: regular rate and rhythm Gastrointestinal: soft, non-tender Musculoskeletal: muscle tone (normal) Extremities: edema (none) 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: other (No focal deficits) Labs Result Diagram: 06/01/19 0753 06/01/19 0753 Medications Medications Current Medications Aspirin (Aspirin) 81 mg DAILY PO Last administered on 05/30/19 09:09; Admin Dose 81 MG; Start 05/27/19 at 18:30; Status Hold Clopidogrel Bisulfate (plaVIX) 75 mg DAILY PO Last administered on 05/30/19 09:07; Admin Dose 75 MG; Start 05/27/19 at 18:30; Status Hold Folic Acid (Folic Acid) 1 mg DAILY PO Last administered on 06/03/19 08:52; Admin Dose 1 MG; Start 05/27/19 at 18:30 Isosorbide Mononitrate (Imdur) 30 mg DAILY PO Last administered on 06/02/19 08:22; Admin Dose 30 MG; Start 05/27/19 at 18:30 Magnesium Oxide (Mag-Ox 400) 400 mg DAILY PO Last administered on 06/03/19 08:52; Admin Dose 400 MG; Start 05/27/19 at 18:30 Megestrol Acetate (Megace) 40 mg TID PO Last administered on 06/03/19 08:53; Admin Dose 40 MG; Start 05/27/19 at 21:00 Nystatin (Nystatin Susp) 5 ml Q4 PO Last administered on 06/03/19 08:52; Admin Dose 5 ML; Start 05/27/19 at 21:00 Potassium Chloride (Micro-K) 8 meq DAILY PO Last administered on 06/03/19 08:53; Admin Dose 8 MEQ; Start 05/27/19 at 18:30 Sacubitril/ Valsartan (Entresto 24 Mg-26 Mg) 1 tab BID PO Last administered on 06/03/19 08:53; Admin Dose 1 TAB; Start 05/27/19 at 21:00 Ondansetron HCl (Zofran Inj) 4 mg Q4H PRN IV NAUSEA AND/OR VOMITING Last administered on 06/02/19 23:32; Admin Dose 4 MG; Start 05/27/19 at 18:30 Acetaminophen (Tylenol Tab) 500 mg Q6H PRN PO MILD PAIN(1-3)OR ELEVATED TEMP Last administered on 05/31/19 00:43; Admin Dose 500 MG; Start 05/27/19 at 18:30 Albuterol/ Ipratropium (Duoneb) 3 ml Q6H RESP THERAPY PRN HHN SHORTNESS OF BREATH Last administered on 06/02/19 23:52; Admin Dose 3 ML; Start 05/27/19 at 18:30 Lidocaine (Lidoderm) 1 patch DAILY TD Last administered on 06/03/19 08:52; Admin Dose 1 PATCH; Start 05/27/19 at 18:30 Miscellaneous Information (Pending [facility] Order For Wound Care) This patient meyer... PRN PRN XX WOUND CARE; Start 05/27/19 at 20:00 Digoxin (Digoxin) 0.125 mg DAILY@1300 PO Last administered on 06/02/19 13:31; Admin Dose 0.125 MG; Start 05/28/19 at 13:00 Furosemide (Lasix) 40 mg BID DIURETICS IV Last administered on 06/03/19 06:41; Admin Dose 40 MG; Start 05/29/19 at 18:00 Metoprolol Succinate (Toprol Xl) 12.5 mg DAILY PO Last administered on 06/03/19 08:55; Admin Dose 12.5 MG; Start 05/30/19 at 09:00 Levothyroxine Sodium (Synthroid) 100 mcg BEFORE BREAKFAST PO Last administered on 06/03/19 06:41; Admin Dose 100 MCG; Start 06/01/19 at 07:00 Albuterol/ Ipratropium (Duoneb) 3 ml Q8H RESP THERAPY N ; Start 06/03/19 at 00:00 ARIEL HOBBS Jun 03, 2019 11:02
[2019-06-03] MEDS: DIGOXIN 0.125 MG TAB PO SCH (12:15)
[2019-06-03] MEDS ORDERED: LORAZEPAM 1 MG TAB PO PRN (17:30)
--- NOTE | 2019-06-03 19:19 | CONS ---
Assessment/Plan Assessment/Plan Assessment/Plan (Daily) Consultation Assessment/Plan Assessment/Plan Assessment/Plan (Daily) Hospital Course (Demo Recall) 73 yo female 1. Dysphagia or failure to thrive, progressive - Patient has ulcerated lesion in the proximal esophagus starting from cricopharyngeal sphincter with narrowing of the lumen and this was confirmed on the CT scan of the neck 2. Weight loss. 3. Cardiomyopathy with ejection fraction of 20% to 25%. 4. History of Hodgkin's lymphoma. 5. Depression. 6. Kyphosis. 7. Hypertension. 8. Status post left subclavian pacemaker implantation. 9. 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 Salomon she wants her tissue diagnosis. Patient last dose of Plavix was on . I will have to wait for 5 days. Consultation Date/Type/Reason Admit Date/Time May 27, 2019 at 13:49 Initial Consult Date Requesting Provider: PEDRO KRUSE MD Date/Time of Note DATE: 06/03/19 TIME: : 24 HR Interval Summary Constitutional: no complaints Exam/Review of Systems Exam Vitals Vital Signs Date Temp Pulse Resp B/P (MAP) Pulse Ox O2 O2 Flow FiO2 Time Delivery Rate 06/03/19 94 104/65 17:27 (78) 06/03/19 17 98 21 16:57 06/03/19 98.2 15:42 06/03/19 Room Air 05:36 06/01/19 2.0 16:45 Intake and Output 06/02/19 06/02/19 06/03/19 1515:00 23:00 07:00 IntakeIntake Total 500 ml 480 ml OutputOutput Total 2 ml BalanceBalance -2 ml 500 ml 480 ml Constitutional: alert, oriented, well developed Psych: no complaints, nl mood/affect Head: normocephalic, atraumatic Eyes: nl conjunctiva, EOMI, nl lids, nl sclera, PERRL ENMT: nl external ears & nose, nl lips & teeth, nl nasal mucosa & septum Neck: supple, non-tender Respiratory: clear to auscultation, normal air movement Cardiovascular: regular rate and rhythm, nl pulses Gastrointestinal: soft, nl liver, spleen, non-tender Musculoskeletal: nl extremities to inspection, nl gait and stance Extremities: normal pulses 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: 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 MARKETING MANAGER II-XII intact, nl mental status, nl speech, nl strength Skin: nl turgor; No rash or lesions Lymph: nl lymph nodes Results Result Diagram: 06/01/19 0753 06/01/19 0753 Medications Medication Current Medications Aspirin (Aspirin) 81 mg DAILY PO Last administered on 05/30/19 09:09; Admin Dose 81 MG; Start 05/27/19 at 18:30; Status Hold Clopidogrel Bisulfate (plaVIX) 75 mg DAILY PO Last administered on 05/30/19 09:07; Admin Dose 75 MG; Start 05/27/19 at 18:30; Status Hold Folic Acid (Folic Acid) 1 mg DAILY PO Last administered on 06/03/19 08:52; Admin Dose 1 MG; Start 05/27/19 at 18:30 Magnesium Oxide (Mag-Ox 400) 400 mg DAILY PO Last administered on 06/03/19 08:52; Admin Dose 400 MG; Start 05/27/19 at 18:30 Megestrol Acetate (Megace) 40 mg TID PO Last administered on 06/03/19 12:15; Admin Dose 40 MG; Start 05/27/19 at 21:00 Nystatin (Nystatin Susp) 5 ml Q4 PO Last administered on 06/03/19 08:52; Admin Dose 5 ML; Start 05/27/19 at 21:00 Potassium Chloride (Micro-K) 8 meq DAILY PO Last administered on 06/03/19 08:53; Admin Dose 8 MEQ; Start 05/27/19 at 18:30 Sacubitril/ Valsartan (Entresto 24 Mg-26 Mg) 1 tab BID PO Last administered on 06/03/19 08:53; Admin Dose 1 TAB; Start 05/27/19 at 21:00 Ondansetron HCl (Zofran Inj) 4 mg Q4H PRN IV NAUSEA AND/OR VOMITING Last administered on 06/02/19 23:32; Admin Dose 4 MG; Start 05/27/19 at 18:30 Acetaminophen (Tylenol Tab) 500 mg Q6H PRN PO MILD PAIN(1-3)OR ELEVATED TEMP Last administered on 05/31/19 00:43; Admin Dose 500 MG; Start 05/27/19 at 18:30 Albuterol/ Ipratropium (Duoneb) 3 ml Q6H RESP THERAPY PRN HHN SHORTNESS OF BREATH Last administered on 06/02/19 23:52; Admin Dose 3 ML; Start 05/27/19 at 18:30 Lidocaine (Lidoderm) 1 patch DAILY TD Last administered on 06/03/19 08:52; Admin Dose 1 PATCH; Start 05/27/19 at 18:30 Miscellaneous Information (Pending [facility] Order For Wound Care) This patient meyer... PRN PRN XX WOUND CARE; Start 05/27/19 at 20:00 Digoxin (Digoxin) 0.125 mg DAILY@1300 PO Last administered on 06/03/19 12:15; Admin Dose 0.125 MG; Start 05/28/19 at 13:00 Furosemide (Lasix) 40 mg BID DIURETICS IV Last administered on 06/03/19 17:28; Admin Dose 40 MG; Start 05/29/19 at 18:00 Metoprolol Succinate (Toprol Xl) 12.5 mg DAILY PO Last administered on 06/03/19 08:55; Admin Dose 12.5 MG; Start 05/30/19 at 09:00 Levothyroxine Sodium (Synthroid) 100 mcg BEFORE BREAKFAST PO Last administered on 06/03/19 06:41; Admin Dose 100 MCG; Start 06/01/19 at 07:00 Albuterol/ Ipratropium (Duoneb) 3 ml Q8H RESP THERAPY HHN Last administered on 06/03/19 16:57; Admin Dose 3 ML; Start 06/03/19 at 00:00 Docusate Sodium (Colace Liquid Cup) 100 mg BID GTB ; Start 06/03/19 at 21:00 Lorazepam (Ativan) 1 mg QHS PRN PO INSOMNIA; Start 06/03/19 at 17:30 HUMZA LIAO MD Jun 03, 2019 19:19
--- NOTE | 2019-06-03 19:39 | PN ---
Date/Time of Note Date/Time of Note DATE: 06/03/19 TIME: 19:33 Assessment/Plan VTE Prophylaxis Risk score (from Nsg)>0 risk: 5 SCD applied (from Ns): Yes SCD contraindicated: other Pharmacological prophylaxis: LMWH Lines/Catheters IV [facility]from [facility] Sal[place] [employer] Central line still needed: No Urinary Cath still in place: No Reason Cath still needed: urinary retention Assessment/Plan Assessment/Plan 1. S/P G-tube placement due to of Dysphagia.Ulceration of the upper esophagus with inability to eat. Unable to swallow most of the time. Regurgitating even saliva. On and off able to swallow. Severe decrease of voice with substernal pressure sensation severe respiratory distress with worsening of wheezing and inability to sleep. Unable to take medications due to above 2.IHD angina, new onset UT by positive troponin series still high. Discussed with Dr. Alvarez. HX of recent PTCA with one stent and 3 balloon dilatation of narrow coronary arteries(; according to the daughter). Status post stapling of mitral valve 6 months ago in [facility] with improvement of condition immediately after the procedure but still she is having frequent hospitalizations. Although it is evident that the cause is not over drinking possibly medication noncompliance. Discussed with Dr. Alvarez. 3. Dysphagia to solids and sometimes to liquids now to everything. Refuses to eat secondary to pain.. Called Dr.David Silver; [phone] for a ENT consultation. 4. Pulmonary edema by x-ray with wheezing on admission, improved after lasix. Ejection fraction was at 25-30 %. Improved. 5. History of Hodgkin lymphoma:. 6. Osteoarthritis with pain syndrome 7. Anxiety disorder. 8. Depression with grief reaction-s/p loss of . 9. Urinary incontinence. 10. Osteoporosis. 11. Kyphosis. 12. Postmenopausal syndrome. 13. Anemia with nl iron. 14. Brain atrophy on CT. 15. Left sphenoid sinusitis on CT. 16. Left ventricular hypertrophy. 17. Urinary incontinence with recurrent UTIs. Now with enterococcus species. 18.Cerebrovascular accident, with left facial drooling, left facial weakness, with slurred speech and dysphagia. Mild left upper extremity weakness. 19. Hypertension, now normotensive.Cardiomegaly on cxr 20. Status post left subclavian area pacemaker implantation about 3 months ago. 21. Status post mitral valve endocardial manipulation with stapling of the valves with good clinical results. 22. Recurrent episodes of V. tach now 8 complexes on a monitor and SVT; placed on the monitor but cardiology consult. 23.Weight loss mainly due to of not eating well. 24.Sleeplessness 25.Poor self expression capacity and getting worse. Talks for minutes but unable to conclude talk or be precise. 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 27. Weight loss 20.Medication noncompliance. Result Diagram: 06/01/19 0753 06/01/19 0753 Subjective 24 Hr Interval Summary Free Text/Dictation Dysphagia painful swallowing cough. I cannot even drink of water. Discussed with the patient the possibility of second malignancy and negative results of her first biopsy of the esophageal lesion. Explained the necessity of performing a biopsy of the deep tissues to rule out the possibility of a second malignancy. Family is aware the patient is depressed.. No fever and chills. No diarrhea. She is less thirsty. She is less hungry. Constitutional: chills, poor po, requiring O2; No no complaints, No improved, No diaphoresis, No disoriented, No febrile, No requiring IVF, No other Eyes: No no complaints, No pain, No discharge, No redness, No visual change, No other ENT: discharge, dysphagia, sore throat; No no complaints, No bleeding, No pain, No congestion, No other Respiratory: cough, shortness of breath; No no complaints, No pain, No pleuritic pain, No sputum, No wheezing, No other Cardiovascular: No no complaints, No chest pain, No edema, No lightheadedness, No orthopenea, No palpitations, No paroxysmal nocturnal dyspnea, No other Gastrointestinal: constipation, decreased appetite, flatus, nausea, passing stool, vomiting; No no complaints, No pain, No blood, No diarrhea, No other Genitourinary: dysuria, flank pain Musculoskeletal: back pain, bone/joint pain, neck pain; No no complaints, No restricted range of motion, No swelling, No other Skin: bruising Neurologic: dizziness, headache; No no complaints, No confusion, No focal-weakness, No syncope, No seizure, No other Exam/Review of Systems Exam Vitals Vital Signs Date Temp Pulse Resp B/P (MAP) Pulse Ox O2 O2 Flow FiO2 Time Delivery Rate 06/03/19 94 104/65 17:27 (78) 06/03/19 17 98 21 16:57 06/03/19 98.2 15:42 06/03/19 Room Air 05:36 06/01/19 2.0 16:45 Intake and Output 06/02/19 06/02/19 06/03/19 1515:00 23:00 07:00 IntakeIntake Total 500 ml 480 ml OutputOutput Total 2 ml BalanceBalance -2 ml 500 ml 480 ml Constitutional: alert, oriented, well developed, distress, frail; No non-verbal, No obese, No other Psych: anxiety, depression; No no complaints, No nl mood/affect, No confusion, No suicidal, No other Head: normocephalic, atraumatic Eyes: EOMI, nl lids, PERRL; No nl conjunctiva, No nl sclera, No icteric, No fundi, disc, No other Neck: jvd, thyromegaly, nuchal rigidity; No supple, No non-tender, No bruits, No masses, No other Respiratory: normal air movement, congested cough, diminished breath sounds; No clear to auscultation, No crackles/rales, No intercostal retraction, No labored breathing, No respirations, No tactile fremitus, No wheezing, No other Cardiovascular: regular rate and rhythm, systolic murmur; No nl pulses, No bruits, No diastolic murmur, No edema, No gallop, No irregular rhythm, No jugular venous distention (JVD), No murmurs/extra sounds, No rub, No S3, No S4, No other Gastrointestinal: soft, bowel sounds; No nl liver, spleen, No non-tender, No ascites, No distended, No firm, No hepatomegaly, No mass, No rebound or guarding, No splenomegaly, No surgical scars, No tender, No other Musculoskeletal: nl extremities to inspection, nl gait and stance, joint tenderness, muscle tone, muscle weakness, other (Very weak at times with atrophy of muscles.); No range of motion, No spine non-tender, No swelling Extremities: normal pulses, calf tenderness; No cyanosis, No clubbing, No edema, No pitting pedal edema, No palpable cord, No tenderness, No other 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: RADIO OPERATOR GROUND II-XII intact, nl speech (Decreased voice.), numbness; No nl mental status, No nl strength, No confused, No DTR's symmetric, No focal weakness, No lethargic, No reflexes, No unresponsive, No other Medications Medication Current Medications Aspirin (Aspirin) 81 mg DAILY PO Last administered on 05/30/19 09:09; Admin Dose 81 MG; Start 05/27/19 at 18:30; Status Hold Clopidogrel Bisulfate (plaVIX) 75 mg DAILY PO Last administered on 05/30/19 09:07; Admin Dose 75 MG; Start 05/27/19 at 18:30; Status Hold Folic Acid (Folic Acid) 1 mg DAILY PO Last administered on 06/03/19 08:52; Admin Dose 1 MG; Start 05/27/19 at 18:30 Magnesium Oxide (Mag-Ox 400) 400 mg DAILY PO Last administered on 06/03/19 08:52; Admin Dose 400 MG; Start 05/27/19 at 18:30 Megestrol Acetate (Megace) 40 mg TID PO Last administered on 06/03/19 12:15; Admin Dose 40 MG; Start 05/27/19 at 21:00 Nystatin (Nystatin Susp) 5 ml Q4 PO Last administered on 06/03/19 08:52; Admin Dose 5 ML; Start 05/27/19 at 21:00 Potassium Chloride (Micro-K) 8 meq DAILY PO Last administered on 06/03/19 08:53; Admin Dose 8 MEQ; Start 05/27/19 at 18:30 Sacubitril/ Valsartan (Entresto 24 Mg-26 Mg) 1 tab BID PO Last administered on 06/03/19 08:53; Admin Dose 1 TAB; Start 05/27/19 at 21:00 Ondansetron HCl (Zofran Inj) 4 mg Q4H PRN IV NAUSEA AND/OR VOMITING Last administered on 06/02/19 23:32; Admin Dose 4 MG; Start 05/27/19 at 18:30 Acetaminophen (Tylenol Tab) 500 mg Q6H PRN PO MILD PAIN(1-3)OR ELEVATED TEMP Last administered on 05/31/19 00:43; Admin Dose 500 MG; Start 05/27/19 at 18:30 Albuterol/ Ipratropium (Duoneb) 3 ml Q6H RESP THERAPY PRN HHN SHORTNESS OF BREATH Last administered on 06/02/19 23:52; Admin Dose 3 ML; Start 05/27/19 at 18:30 Lidocaine (Lidoderm) 1 patch DAILY TD Last administered on 06/03/19 08:52; Ad min Dose 1 PATCH; Start 05/27/19 at 18:30 Miscellaneous Information (Pending [facility] Order For Wound Care) This patient meyer... PRN PRN XX WOUND CARE; Start 05/27/19 at 20:00 Digoxin (Digoxin) 0.125 mg DAILY@1300 PO Last administered on 06/03/19 12:15; Admin Dose 0.125 MG; Start 05/28/19 at 13:00 Furosemide (Lasix) 40 mg BID DIURETICS IV Last administered on 06/03/19 17:28; Admin Dose 40 MG; Start 05/29/19 at 18:00 Metoprolol Succinate (Toprol Xl) 12.5 mg DAILY PO Last administered on 9at 08:55; Admin Dose 12.5 MG; Start 05/30/19 at 09:00 Levothyroxine Sodium (Synthroid) 100 mcg BEFORE BREAKFAST PO Last administered on 06/03/19 06:41; Admin Dose 100 MCG; Start 06/01/19 at 07:00 Albuterol/ Ipratropium (Duoneb) 3 ml Q8H RESP THERAPY HHN Last administered on 06/03/19 16:57; Admin Dose 3 ML; Start 06/03/19 at 00:00 Docusate Sodium (Colace Liquid Cup) 100 mg BID GTB ; Start 06/03/19 at 21:00 Lorazepam (Ativan) 1 mg QHS PRN PO INSOMNIA; Start 06/03/19 at 17:30 PEDRO KRUSE MD Jun 03, 2019 19:39
[2019-06-03] MEDS: DOCUSATE SODIUM 10 MG/ML (10ML CUP) GTB SCH (21:05)
[2019-06-03] MEDS: ALBUTEROL/IPRATROPIUM (NEB) 3 ML AMP HHN PRN (21:31)
--- NOTE | 2019-06-03 22:04 | CONS ---
Assessment/Plan Assessment/Plan Hospital Course (Demo Recall) Hodgkin lymphoma- s/p chemotherapy PT HAS HX PROGRESSIVE REFRACTORY DIS POST CHEMO AND IMMUNOTHERAPY, MOST RECENT PET/CT SHOWED SOME IMPROVEMENT RESTAGING- OVERALL NO PROGRESSION BUT New splenic masses are now identified. PET scan POST DC DYSPHAGIA ESOPHAGEAL LESION, PATH BENIGN I REVIEWED THE PROCEDURE NOTE, D/W DR LIAO AND FAMILY- RE ANOTHER ENDOSCOPY AND RE BX CEA- P PATH- BENIGN Patient has ulcerated lesion in the proximal esophagus starting from cricopharyngeal sphincter with narrowing of the lumen and this was confirmed on the CT scan of the neck PLAN- GT, ANTIULCER TREATMENT PER GI per son - NO 2nd BX was done during GT placement Anemia WITH COMPONENT ACD monitor Severe respiratory distress improving. HX IHD angina, Low LVEF dropped. Findings most consistent with mild ADHF with associated type II NSTEMI HX Pulmonary edema Osteoarthritis with pain syndrome Anxiety disorder. Depression with grief reaction-s/p loss of . Urinary incontinence. Osteoporosis. Kyphosis. Postmenopausal syndrome. Brain atrophy on CT. Left sphenoid sinusitis on CT. Left ventricular hypertrophy. Urinary incontinence. Cerebrovascular accident, with left facial drooling, left facial weakness, with slurred speech and dysphagia. Mild left upper extremity weakness.mostly corrected. Hypertension, now normotensive. HX of PTCA with one sent and 3 balloon dilatation of narrow coronary arteries(; Medication noncompliance. Consultation Date/Type/Reason Admit Date/Time May 27, 2019 at 13:49 Initial Consult Date Requesting Provider: PEDRO KRUSE MD Date/Time of Note DATE: 06/03/19 TIME: 22:04 24 HR Interval Summary Free Text/Dictation ALL NOTED GT IN PLACE TOLERATING TF WELL Exam/Review of Systems Exam Vitals Vital Signs Date Temp Pulse Resp B/P (MAP) Pulse Ox O2 O2 Flow FiO2 Time Delivery Rate 06/03/19 119 24 98 21 21:31 06/03/19 97.7 92/59 (70) 20:00 06/03/19 Room Air 05:36 06/01/19 2.0 16:45 Intake and Output 06/02/19 06/02/19 06/03/19 1515:00 23:00 07:00 IntakeIntake Total 500 ml 480 ml OutputOutput Total 2 ml BalanceBalance -2 ml 500 ml 480 ml Exam Constitutional: alert, oriented, well developed Psych: no complaints, nl mood/affect Head: normocephalic, atraumatic Eyes: nl conjunctiva, EOMI, nl lids, nl sclera, PERRL ENMT: nl external ears & nose, nl lips & teeth, nl nasal mucosa & septum Neck: supple, non-tender Respiratory: clear to auscultation, normal air movement Cardiovascular: regular rate and rhythm, nl pulses Gastrointestinal: soft, nl liver, spleen, non-tender, GT in place Musculoskeletal: nl extremities to inspection, nl gait and stance Extremities: normal pulses 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: CIVILIAN TECHNICIAN II-XII intact, nl mental status, nl speech, nl strength Skin: nl turgor; No rash or lesions Lymph: nl lymph nodes Results Result Diagram: 06/01/1975206/01/19752 Medications Medication Current Medications Aspirin (Aspirin) 81 mg DAILY PO Last administered on 05/30/19 09:09; Admin Dose 81 MG; Start 05/27/19 at 18:30; Status Hold Clopidogrel Bisulfate (plaVIX) 75 mg DAILY PO Last administered on 05/30/19 09:07; Admin Dose 75 MG; Start 05/27/19 at 18:30; Status Hold Folic Acid (Folic Acid) 1 mg DAILY PO Last administered on 06/03/19 08:52; Admin Dose 1 MG; Start 05/27/19 at 18:30 Magnesium Oxide (Mag-Ox 400) 400 mg DAILY PO Last administered on 06/03/19 08:52; Admin Dose 400 MG; Start 05/27/19 at 18:30 Megestrol Acetate (Megace) 40 mg TID PO Last administered on 06/03/19 21:06; Admin Dose 40 MG; Start 05/27/19 at 21:00 Nystatin (Nystatin Susp) 5 ml Q4 PO Last administered on 06/03/19 08:52; Admin Dose 5 ML; Start 05/27/19 at 21:00 Potassium Chloride (Micro-K) 8 meq DAILY PO Last administered on 06/03/19 08:53; Admin Dose 8 MEQ; Start 05/27/19 at 18:30 Sacubitril/ Valsartan (Entresto 24 Mg-26 Mg) 1 tab BID PO Last administered on 06/03/19 21:06; Admin Dose 1 TAB; Start 05/27/19 at 21:00 Ondansetron HCl (Zofran Inj) 4 mg Q4H PRN IV NAUSEA AND/OR VOMITING Last administered on 06/02/19 23:32; Admin Dose 4 MG; Start 05/27/19 at 18:30 Acetaminophen (Tylenol Tab) 500 mg Q6H PRN PO MILD PAIN(1-3)OR ELEVATED TEMP Last administered on 05/31/19 00:43; Admin Dose 500 MG; Start 05/27/19 at 18:30 Albuterol/ Ipratropium (Duoneb) 3 ml Q6H RESP THERAPY PRN HHN SHORTNESS OF BREATH Last administered on 06/03/19 21:31; Admin Dose 3 ML; Start 05/27/19 at 18:30 Lidocaine (Lidoderm) 1 patch DAILY TD Last administered on 06/03/19 08:52; Admin Dose 1 PATCH; Start 05/27/19 at 18:30 Miscellaneous Information (Pending [facility] Order For Wound Care) This patient meyer... PRN PRN XX WOUND CARE; Start 05/27/19 at 20:00 Digoxin (Digoxin) 0.125 mg DAILY@1300 PO Last administered on 06/03/19 12:15; Admin Dose 0.125 MG; Start 05/28/19 at 13:00 Furosemide (Lasix) 40 mg BID DIURETICS IV Last administered on 06/03/19 17:28; Admin Dose 40 MG; Start 05/29/19 at 18:00 Metoprolol Succinate (Toprol Xl) 12.5 mg DAILY PO Last administered on 06/03/19 08:55; Admin Dose 12.5 MG; Start 05/30/19 at 09:00 Levothyroxine Sodium (Synthroid) 100 mcg BEFORE BREAKFAST PO Last administered on 06/03/19 06:41; Admin Dose 100 MCG; Start 06/01/19 at 07:00 Albuterol/ Ipratropium (Duoneb) 3 ml Q8H RESP THERAPY HHN Last administered on 06/03/19 16:57; Admin Dose 3 ML; Start 06/03/19 at 00:00 Docusate Sodium (Colace Liquid Cup) 100 mg BID GTB Last administered on 06/03/19 21:05; Admin Dose 100 MG; Start 06/03/19 at 21:00 Lorazepam (Ativan) 1 mg QHS PRN PO INSOMNIA; Start 06/03/19 at 17:30 KALPANA ANGELES MD Jun 03, 2019 22:04
--- NOTE | 2019-06-03 22:05 | CONS ---
Assessment/Plan Assessment/Plan Hospital Course (Demo Recall) Hodgkin lymphoma- s/p chemotherapy PT HAS HX PROGRESSIVE REFRACTORY DIS POST CHEMO AND IMMUNOTHERAPY, MOST RECENT PET/CT SHOWED SOME IMPROVEMENT RESTAGING- OVERALL NO PROGRESSION BUT New splenic masses are now identified. PET scan POST DC DYSPHAGIA ESOPHAGEAL LESION, PATH BENIGN REVIEW PROCEDURE NOTE CEA- P PATH- BENIGN Patient has ulcerated lesion in the proximal esophagus starting from cricopharyngeal sphincter with narrowing of the lumen and this was confirmed on the CT scan of the neck PLAN- GT, ANTIULCER TREATMENT PER GI per son - 2nd BX was done during GT placement, will follow the result Anemia WITH COMPONENT ACD monitor Severe respiratory distress improving. HX IHD angina, Low LVEF dropped. Findings most consistent with mild ADHF with associated type II NSTEMI HX Pulmonary edema Osteoarthritis with pain syndrome Anxiety disorder. Depression with grief reaction-s/p loss of . Urinary incontinence. Osteoporosis. Kyphosis. Postmenopausal syndrome. Brain atrophy on CT. Left sphenoid sinusitis on CT. Left ventricular hypertrophy. Urinary incontinence. Cerebrovascular accident, with left facial drooling, left facial weakness, with slurred speech and dysphagia. Mild left upper extremity weakness.mostly corrected. Hypertension, now normotensive. HX of PTCA with one sent and 3 balloon dilatation of narrow coronary arteries(; Medication noncompliance. Consultation Date/Type/Reason Admit Date/Time May 27, 2019 at 13:49 Initial Consult Date Requesting Provider: PEDRO KRUSE MD Date/Time of Note DATE: 06/03/19 TIME: 22:05 24 HR Interval Summary Free Text/Dictation DUPLICATE NOTE Exam/Review of Systems Exam Vitals Vital Signs Date Temp Pulse Resp B/P (MAP) Pulse Ox O2 O2 Flow FiO2 Time Delivery Rate 06/03/19 119 24 98 21 21:31 06/03/19 97.7 92/59 (70) 20:00 06/03/19 Room Air 05:36 06/01/19 2.0 16:45 Intake and Output 06/02/19 06/02/19 06/03/19 1515:00 23:00 07:00 IntakeIntake Total 500 ml 480 ml OutputOutput Total 2 ml BalanceBalance -2 ml 500 ml 480 ml Results Result Diagram: 06/01/19 0753 06/01/19 0753 Medications Medication Current Medications Aspirin (Aspirin) 81 mg DAILY PO Last administered on 05/30/19 09:09; Admin Dose 81 MG; Start 05/27/19 at 18:30; Status Hold Clopidogrel Bisulfate (plaVIX) 75 mg DAILY PO Last administered on 05/30/19 09:07; Admin Dose 75 MG; Start 05/27/19 at 18:30; Status Hold Folic Acid (Folic Acid) 1 mg DAILY PO Last administered on 06/03/19 08:52; Admin Dose 1 MG; Start 05/27/19 at 18:30 Magnesium Oxide (Mag-Ox 400) 400 mg DAILY PO Last administered on 06/03/19 08:52; Admin Dose 400 MG; Start 05/27/19 at 18:30 Megestrol Acetate (Megace) 40 mg TID PO Last administered on 06/03/19 21:06; Admin Dose 40 MG; Start 05/27/19 at 21:00 Nystatin (Nystatin Susp) 5 ml Q4 PO Last administered on 06/03/19 08:52; Admin Dose 5 ML; Start 05/27/19 at 21:00 Potassium Chloride (Micro-K) 8 meq DAILY PO Last administered on 06/03/19 08:53; Admin Dose 8 MEQ; Start 05/27/19 at 18:30 Sacubitril/ Valsartan (Entresto 24 Mg-26 Mg) 1 tab BID PO Last administered on 06/03/19 21:06; Admin Dose 1 TAB; Start 05/27/19 at 21:00 Ondansetron HCl (Zofran Inj) 4 mg Q4H PRN IV NAUSEA AND/OR VOMITING Last administered on 06/02/19 23:32; Admin Dose 4 MG; Start 05/27/19 at 18:30 Acetaminophen (Tylenol Tab) 500 mg Q6H PRN PO MILD PAIN(1-3)OR ELEVATED TEMP Last administered on 05/31/19 00:43; Admin Dose 500 MG; Start 05/27/19 at 18:30 Albuterol/ Ipratropium (Duoneb) 3 ml Q6H RESP THERAPY PRN HHN SHORTNESS OF BREATH Last administered on 06/03/19 21:31; Admin Dose 3 ML; Start 05/27/19 at 18:30 Lidocaine (Lidoderm) 1 patch DAILY TD Last administered on 06/03/19 08:52; Admin Dose 1 PATCH; Start 05/27/19 at 18:30 Miscellaneous Information (Pending [facility]yl Order For Wound Care) This patient meyer... PRN PRN XX WOUND CARE; Start 05/27/19 at 20:00 Digoxin (Digoxin) 0.125 mg DAILY@1300 PO Last administered on 06/03/19 12:15; Admin Dose 0.125 MG; Start 05/28/19 at 13:00 Furosemide (Lasix) 40 mg BID DIURETICS IV Last administered on 06/03/19 17:28; Admin Dose 40 MG; Start 05/29/19 at 18:00 Metoprolol Succinate (Toprol Xl) 12.5 mg DAILY PO Last administered on 06/03/19 08:55; Admin Dose 12.5 MG; Start 05/30/19 at 09:00 Levothyroxine Sodium (Synthroid) 100 mcg BEFORE BREAKFAST PO Last administered on 06/03/19 06:41; Admin Dose 100 MCG; Start 06/01/19 at 07:00 Albuterol/ Ipratropium (Duoneb) 3 ml Q8H RESP THERAPY HHN Last administered on 06/03/19 16:57; Admin Dose 3 ML; Start 06/03/19 at 00:00 Docusate Sodium (Colace Liquid Cup) 100 mg BID GTB Last administered on 06/03/19 21:05; Admin Dose 100 MG; Start 06/03/19 at 21:00 Lorazepam (Ativan) 1 mg QHS PRN PO INSOMNIA; Start 06/03/19 at 17:30 KALPANA ANGELES MD Jun 03, 2019 22:05
[2019-06-04] VITALS: BP 101/67; PULSE 94; RESP 18
[2019-06-04] MEDS: NYSTATIN SUSP 5 ML CUP PO SCH ×6 (00:39→20:08)
[2019-06-04 04:00] VITALS: BP 104/62; PULSE 80; RESP 18
[2019-06-04] MEDS: FUROSEMIDE 40 MG INJ IV SCH ×2 (06:00→17:34)
[2019-06-04] MEDS: LEVOTHYROXINE 100 MCG TAB PO SCH (06:35)
[2019-06-04 07:54] VITALS: BP 95/59; PULSE 97; RESP 16
[2019-06-04] MEDS: ALBUTEROL/IPRATROPIUM (NEB) 3 ML AMP HHN SCH ×4 (08:00→23:59)
--- NOTE | 2019-06-04 08:39 | CONS ---
Consult Date/Type/Reason Admit Date/Time May 27, 2019 at 13:49 Initial Consult Date Requesting Provider: PEDOR KRUSE MD Date/Time of Note DATE: 06/04/19 TIME: 08:37 Subjective Pt feels malaise - PEG in place - not in CHF - hydrate as tolerated now. ROS: No fever, no chills, no nausea, no vomiting, no diarrhea/constipation + dysphagia and cough + weakness + recent weight changes No chest pain, no PND, no orthopnea No dizziness, blurred vision No thirst, no heat or cold intolerance Objective Vitals Vital Signs Date Temp Pulse Resp B/P (MAP) Pulse Ox O2 O2 Flow FiO2 Time Delivery Rate 06/04/19 98.0 97 16 95/59 (71) 99 Room Air 07:54 06/03/19 21 21:31 06/01/19 2.0 16:45 Intake and Output 06/03/19 06/03/19 06/04/19 1515:00 23:00 07:00 IntakeIntake Total 720 ml 720 ml BalanceBalance 720 ml 720 ml Exam General: WN/WD/NAD, AOx 3 HEENT: Unicetric/atraumatic/EOMI ( follow commands) NECK: JVD elevated, no thyromegaly Lymph: no lymphadenopathy HEART: regular with no S3, II/ systolic murmur at apex LUNGS: Coarse sounds ABD: soft, NT, ND, +BS - PEG : Intact Neuro: non focal SKIN: chronic changes EXT: NO edema Results/Medications Result Diagram: 06/01/19 0753 06/01/19 0753 Home Meds Active Scripts Fenofibrate* (Fenofibrate*) 200 Mg Cap, 200 MG PO DAILY for 30 Days, #30 CAP Prov:PEDRO KRUSE MD 09/16/18 Digoxin* (Lanoxin*) 0.125 Mg Tablet, 0.125 MG PO DAILY for 30 Days, #30 TAB Prov:PEDRO KRUSE MD 09/16/18 Potassium Chloride* (Potassium Chloride*) 8 Meq Capsule.er, 8 MEQ PO DAILY for 30 Days, #30 CAP Prov:PEDRO KRUSE MD 09/16/18 Isosorbide Mononitrate* (Isosorbide Mononitrate*) 30 Mg Tab.er.24h, 30 MG PO DAILY for 30 Days, #30 TAB Prov:PEDRO KRUSE MD 09/16/18 Clopidogrel Bisulfate (Clopidogrel) 75 Mg Tablet, 75 MG PO DAILY, #30 TAB Prov:PEDRO KRUSE MD 09/16/18 Folic Acid* (Folic Acid*) 1 Mg Tablet, 1 MG PO DAILY for 30 Days, #30 TAB Prov:PEDRO KRUSE MD 09/16/18 Aspirin* (Aspirin* Chew) 81 Mg Tab.chew, 81 MG PO DAILY for 30 Days, #30 TAB.CHEW Prov:PEDRO KRUSE MD 09/16/18 Reported Medications Nystatin (Nystatin) 100,000 Unit/1 Ml Oral.susp, 5 ML PO Q4, #60 ML 05/27/19 Acetaminophen with Codeine (Acetaminop-Codeine 120-12 mg/5) 118 Ml Solution, 5 ML PO Q4 for PAIN 05/27/19 Megestrol Acetate* (Megestrol Acetate*) 40 Mg Tablet, 40 MG PO TID for APPETITE, TAB 05/27/19 Furosemide* (Furosemide*) 40 Mg Tablet, 40 MG PO BID, TAB 05/27/19 Levothyroxine Sodium* (Levothyroxine Sodium*) 125 Mcg Tablet, 125 MCG PO BEFORE BREAKFAST, #30 TAB 02/11/19 Esomeprazole Mag Trihydrate (Nexium) 40 Mg Capsule.dr, 40 MG PO DAILY, #30 CAP 02/11/19 Magnesium Oxide* (Magnesium Oxide*) 400 Mg Tablet, 400 MG PO DAILY, TAB 02/11/19 Medications Current Medications Aspirin (Aspirin) 81 mg DAILY PO Last administered on 05/30/19at 09:09; Admin Dose 81 MG; Start 05/27/19 at 18:30; Status Hold Clopidogrel Bisulfate (plaVIX) 75 mg DAILY PO Last administered on 05/30/19at 09:07; Admin Dose 75 MG; Start 05/27/19 at 18:30; Status Hold Folic Acid (Folic Acid) 1 mg DAILY PO Last administered on 06/03/19at 08:52; Admin Dose 1 MG; Start 05/27/19 at 18:30 Magnesium Oxide (Mag-Ox 400) 400 mg DAILY PO Last administered on 06/03/19at 08:52; Admin Dose 400 MG; Start 05/27/19 at 18:30 Megestrol Acetate (Megace) 40 mg TID PO Last administered on 06/03/19 21:06; Admin Dose 40 MG; Start 05/27/19 at 21:00 Nystatin (Nystatin Susp) 5 ml Q4 PO Last administered on 06/03/19 08:52; Admin Dose 5 ML; Start 05/27/19 at 21:00 Potassium Chloride (Micro-K) 8 meq DAILY PO Last administered on 06/03/19 08:53; Admin Dose 8 MEQ; Start 05/27/19 at 18:30 Sacubitril/ Valsartan (Entresto 24 Mg-26 Mg) 1 tab BID PO Last administered on 06/03/19 21:06; Admin Dose 1 TAB; Start 05/27/19 at 21:00 Ondansetron HCl (Zofran Inj) 4 mg Q4H PRN IV NAUSEA AND/OR VOMITING Last administered on 06/02/19 23:32; Admin Dose 4 MG; Start 05/27/19 at 18:30 Acetaminophen (Tylenol Tab) 500 mg Q6H PRN PO MILD PAIN(1-3)OR ELEVATED TEMP Last administered on 05/31/19 00:43; Admin Dose 500 MG; Start 05/27/19 at 18:30 Albuterol/ Ipratropium (Duoneb) 3 ml Q6H RESP THERAPY PRN HHN SHORTNESS OF BREATH Last administered on 06/03/19 21:31; Admin Dose 3 ML; Start 05/27/19 at 18:30 Lidocaine (Lidoderm) 1 patch DAILY TD Last administered on 06/03/19 08:52; Admin Dose 1 PATCH; Start 05/27/19 at 18:30 Miscellaneous Information (Pending Santyl Order For Wound Care) This patient meyer... PRN PRN XX WOUND CARE; Start 05/27/19 at 20:00 Digoxin (Digoxin) 0.125 mg DAILY@1300 PO Last administered on 06/03/19 12:15; Admin Dose 0.125 MG; Start 05/28/19 at 13:00 Furosemide (Lasix) 40 mg BID DIURETICS IV Last administered on 06/03/19 17:28; Admin Dose 40 MG; Start 05/29/19 at 18:00 Metoprolol Succinate (Toprol Xl) 12.5 mg DAILY PO Last administered on 06/03/19at 08:55; Admin Dose 12.5 MG; Start 05/30/19 at 09:00 Levothyroxine Sodium (Synthroid) 100 mcg BEFORE BREAKFAST PO Last administered on 06/03/19at 06:41; Admin Dose 100 MCG; Start 06/01/19 at 07:00 Albuterol/ Ipratropium (Duoneb) 3 ml Q8H RESP THERAPY HHN Last administered on 06/03/19at 16:57; Admin Dose 3 ML; Start 06/03/19 at 00:00 Docusate Sodium (Colace Liquid Cup) 100 mg BID GTB Last administered on 06/03/19at 21:05; Admin Dose 100 MG; Start 06/03/19 at 21:00 Lorazepam (Ativan) 1 mg QHS PRN PO INSOMNIA; Start 06/03/19 at 17:30 Assessment/Plan Hospital Course (Demo Recall) 1. Preoperative evaluation prior to endoscopy for evaluation of the patient's dysphagia and odynophagia, in a patient that has a severely depressed ejection fraction, mild infiltrates on her chest x-ray but not in gross decompensated congestive heart failure, able to lie flat with good saturations and a recent catheterization in April revealing patent stents.- Now post-op s/p endoscopy with findings of esophageal mass - PEG placement - tolerated procedure well. Con't to keep euvolemic as tolerated. 2. Cardiomyopathy with severely depressed left ventricular ejection fraction- con't to keep euvolemic. In good fluid status - not in CHF now. 3. Congestive heart failure, systolic, CHRONIC. 4. Dysphagia and odynophagia - now with PEG 5. Vocal cord paresis. 6. Hypothyroidism. 7. History of percutaneous transluminal coronary angioplasty and stent placement, patent via catheterization 04/2019, with most recent stents actually placed in 2016, with a type 2 non-ST elevated myocardial infarction prior to last catheterization, and a stress test 02/2019, revealing no reversible ischemia - con't med rx. 8. [id number]- PEG now. 9. Lymphoma Hodgkin's ongoing status post chemotherapy - hematology follows. 10. History of cerebrovascular accident. 11. Hypertension. 12. Dyslipidemia. 13. Hypothyroidism. 14. Urinary incontinence. 15. Psychiatric disorder. 16. Nonsustained ventricular tachycardia-no recurrence, neg trop x 3 17. Status post implantable cardioverter-defibrillator. BEULAH MONTGOMERY MD Jun 04, 2019 08:39
[2019-06-04] MEDS: SACUBITRIL/VALSARTAN (24mg-26mg) TABLET PO SCH ×2 (08:49→20:07)
[2019-06-04] MEDS: MAGNESIUM OXIDE 400 MG TAB PO SCH (08:49)
[2019-06-04] MEDS: DOCUSATE SODIUM 10 MG/ML (10ML CUP) GTB SCH ×3 (08:49→20:17)
[2019-06-04] MEDS: MEGESTROL 40 MG TAB PO SCH ×3 (08:50→20:07)
[2019-06-04] MEDS: POTASSIUM CHLORIDE (SR) 8 MEQ CAP PO SCH (08:50)
[2019-06-04] MEDS: FOLIC ACID 1 MG TAB PO SCH (08:50)
[2019-06-04] MEDS: METOPROLOL (XL) 25 MG TAB PO SCH (08:51)
[2019-06-04] MEDS: LIDOCAINE 5% PATCH TD SCH (08:52)
[2019-06-04 11:14] VITALS: BP 92/55; PULSE 103; RESP 16
[2019-06-04] MEDS: DIGOXIN 0.125 MG TAB PO SCH (12:36)
--- NOTE | 2019-06-04 13:52 | PN ---
Date/Time of Note Date/Time of Note DATE: 06/04/19 TIME: 13:48 Assessment/Plan VTE Prophylaxis Risk score (from Ns)>0 risk: 3 SCD applied (from Ns): Yes Pharmacological prophylaxis: LMWH (Hold.) Pharm contraindication: patient refusal Lines/Catheters IV Catheter Type (from [facility]): [place] [employer] line still needed: No Urinary Cath still in place: No Assessment/Plan Assessment/Plan 1. S/P G-tube placement due to of Dysphagia.Ulceration of the upper esophagus with inability to eat. Unable to swallow most of the time. Regurgitating even saliva. On and off able to swallow. Severe decrease of voice with substernal pressure sensation severe respiratory distress with worsening of wheezing and inability to sleep. Unable to take medications due to above 2.IHD angina, new onset ND by positive troponin series still high. Discussed with Dr. Alvarez. HX of recent PTCA with one stent and 3 balloon dilatation of narrow coronary arteries(; according to the daughter). Status post stapling of mitral valve 6 months ago in [facility] with improvement of condition immediately after the procedure but still she is having frequent hospitalizations. Although it is evident that the cause is not over drinking possibly medication noncompliance. Discussed with Dr. Alvarez. 3. Dysphagia to solids and sometimes to liquids now to everything. Refuses to eat secondary to pain.. Called Dr.David Silver; [phone] for a ENT consultation. 4. Pulmonary edema by x-ray with wheezing on admission, improved after lasix. Ejection fraction was at 25-30 %. Improved. 5. History of Hodgkin lymphoma:. 6. Osteoarthritis with pain syndrome 7. Anxiety disorder. 8. Depression with grief reaction-s/p loss of . 9. Urinary incontinence. 10. Osteoporosis. 11. Kyphosis. 12. Postmenopausal syndrome. 13. Anemia with nl iron. 14. Brain atrophy on CT. 15. Left sphenoid sinusitis on CT. 16. Left ventricular hypertrophy. 17. Urinary incontinence with recurrent UTIs. Now with enterococcus species. 18.Cerebrovascular accident, with left facial drooling, left facial weakness, with slurred speech and dysphagia. Mild left upper extremity weakness. 19. Hypertension, now normotensive.Cardiomegaly on cxr 20. Status post left subclavian area pacemaker implantation about 3 months ago. 21. Status post mitral valve endocardial manipulation with stapling of the valves with good clinical results. 22. Recurrent episodes of V. tach now 8 complexes on a monitor and SVT; placed on the monitor but cardiology consult. 23.Weight loss mainly due to of not eating well. 24.Sleeplessness 25.Poor self expression capacity and getting worse. Talks for minutes but unable to conclude talk or be precise. 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 27. Weight loss 20.Medication noncompliance. Result Diagram: 06/01/19 0753 06/01/19 0753 Subjective 24 Hr Interval Summary Free Text/Dictation Constant cough. The patient is asking is it possible to stop the cough. Explained how we think how tumor is the most probable cause along with possible aspiration for her cough. Current procedure as a step forward what else to be done. She is reluctant to go for a biopsy. She said she does not want it. Later when I explained the necessity she said let's do it. Constitutional: chills, poor po, requiring O2 Eyes: redness; No no complaints, No pain, No discharge, No visual change, No other ENT: congestion, dysphagia, sore throat; No no complaints, No bleeding, No pain, No discharge, No other Respiratory: cough, pleuritic pain, shortness of breath; No no complaints, No pain, No sputum, No wheezing, No other Cardiovascular: edema; No no complaints, No chest pain, No lightheadedness, No orthopenea, No palpitations, No paroxysmal nocturnal dyspnea, No other Gastrointestinal: constipation, decreased appetite, nausea, passing stool; No no complaints, No pain, No blood, No diarrhea, No flatus, No vomiting, No other Genitourinary: dysuria; No no complaints, No bleeding, No discharge, No flank pain, No hematuria, No other Musculoskeletal: back pain, bone/joint pain; No no complaints, No neck pain, No restricted range of motion, No swelling, No other Skin: pruritis, rash; No no complaints, No bruising, No erythema, No laceration, No skin lesions, No other Neurologic: dizziness; No no complaints, No confusion, No focal-weakness, No headache, No syncope, No seizure, No other Psychological: anxiety; No no complaints, No nl mood/affect, No confusion, No depression, No suicidal, No other Exam/Review of Systems Exam Vitals Vital Signs Date Temp Pulse Resp B/P (MAP) Pulse Ox O2 O2 Flow FiO2 Time Delivery Rate 06/04/19 97.4 103 16 92/55 (67) 96 Room Air 11:14 06/03/19 21 21:31 06/01/19 2.0 16:45 Intake and Output 06/03/19 06/03/19 06/04/19 1515:00 23:00 07:00 IntakeIntake Total 720 ml 720 ml BalanceBalance 720 ml 720 ml Constitutional: alert, oriented, well developed, distress, frail, other; No non-verbal, No obese Psych: anxiety; No no complaints, No nl mood/affect, No confusion, No depression, No suicidal, No other Head: normocephalic, atraumatic; No lacerations, No hematomas, No other Eyes: EOMI, nl lids, PERRL; No nl conjunctiva, No nl sclera, No icteric, No fundi, disc, No other ENMT: No nl external ears & nose, No nl lips & teeth, No nl nasal mucosa & septum, No mucosa pink and moist, No intubated, No tympanic membranes, No other Neck: jvd, bruits, thyromegaly, nuchal rigidity; No supple, No non-tender, No masses, No other Respiratory: normal air movement, crackles/rales, diminished breath sounds; No clear to auscultation, No congested cough, No intercostal retraction, No labored breathing, No respirations, No tactile fremitus, No wheezing, No other Cardiovascular: regular rate and rhythm, systolic murmur; No nl pulses, No bruits, No diastolic murmur, No edema, No gallop, No irregular rhythm, No jugular venous distention (JVD), No murmurs/extra sounds, No rub, No S3, No S4, No other Gastrointestinal: soft, nl liver, spleen, non-tender, bowel sounds, other (G- tube site is clean.); No ascites, No distended, No firm, No hepatomegaly, No mass, No rebound or guarding, No splenomegaly, No surgical scars, No tender Musculoskeletal: joint tenderness, muscle tone (Severely decreased muscular tone and wrinkles of the skin with decreased turgor.); No nl extremities to inspection, No nl gait and stance, No muscle weakness, No range of motion, No spine non-tender, No swelling, No other Extremities: No normal pulses, No calf tenderness, No cyanosis, No clubbing, No edema, No pitting pedal edema, No palpable cord, No tenderness, No other 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: 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 CONTRACT OFFICER II-XII intact; No nl mental status, No nl speech, No nl strength, No confused, No DTR's symmetric, No focal weakness, No lethargic, No numbness, No reflexes, No unresponsive, No other Skin: No nl turgor, No rash or lesions, No diaphoresis, No ecchymosis, No laceration, No puncture, No other Medications Medication Current Medications Aspirin (Aspirin) 81 mg DAILY PO Last administered on 05/30/19 09:09; Admin Dose 81 MG; Start 05/27/19 at 18:30; Status Hold Clopidogrel Bisulfate (plaVIX) 75 mg DAILY PO Last administered on 05/30/19 09:07; Admin Dose 75 MG; Start 05/27/19 at 18:30; Status Hold Folic Acid (Folic Acid) 1 mg DAILY PO Last administered on 06/04/19 08:50; Ad min Dose 1 MG; Start 05/27/19 at 18:30 Magnesium Oxide (Mag-Ox 400) 400 mg DAILY PO Last administered on 06/04/19 08:49; Admin Dose 400 MG; Start 05/27/19 at 18:30 Megestrol Acetate (Megace) 40 mg TID PO Last administered on 06/04/19 12:35; Admin Dose 40 MG; Start 05/27/19 at 21:00 Nystatin (Nystatin Susp) 5 ml Q4 PO Last administered on 06/04/19 08:50; Admin Dose 5 ML; Start 05/27/19 at 21:00 Potassium Chloride (Micro-K) 8 meq DAILY PO Last administered on 06/04/19 08:50; Admin Dose 8 MEQ; Start 05/27/19 at 18:30 Sacubitril/ Valsartan (Entresto 24 Mg-26 Mg) 1 tab BID PO Last administered on 06/03/19 21:06; Admin Dose 1 TAB; Start 05/27/19 at 21:00 Ondansetron HCl (Zofran Inj) 4 mg Q4H PRN IV NAUSEA AND/OR VOMITING Last administered on 06/02/19 23:32; Admin Dose 4 MG; Start 05/27/19 at 18:30 Acetaminophen (Tylenol Tab) 500 mg Q6H PRN PO MILD PAIN(1-3)OR ELEVATED TEMP Last administered on 05/31/19 00:43; Admin Dose 500 MG; Start 05/27/19 at 18:30 Albuterol/ Ipratropium (Duoneb) 3 ml Q6H RESP THERAPY PRN HHN SHORTNESS OF BREATH Last administered on 06/03/19 21:31; Admin Dose 3 ML; Start 05/27/19 at 18:30 Lidocaine (Lidoderm) 1 patch DAILY TD Last administered on 06/04/19 08:52; Admin Dose 1 PATCH; Start 05/27/19 at 18:30 Miscellaneous Information (Pending [facility] Order For Wound Care) This patient meyer... PRN PRN XX WOUND CARE; Start 05/27/19 at 20:00 Digoxin (Digoxin) 0.125 mg DAILY@1300 PO Last administered on 06/04/19 12:36; Admin Dose 0.125 MG; Start 05/28/19 at 13:00 Furosemide (Lasix) 40 mg BID DIURETICS IV Last administered on 06/03/19 17:28; Admin Dose 40 MG; Start 05/29/19 at 18:00 Metoprolol Succinate (Toprol Xl) 12.5 mg DAILY PO Last administered on 06/03/19 08:55; Admin Dose 12.5 MG; Start 05/30/19 at 09:00 Levothyroxine Sodium (Synthroid) 100 mcg BEFORE BREAKFAST PO Last administered on 06/03/19 06:41; Admin Dose 100 MCG; Start 06/01/19 at 07:00 Albuterol/ Ipratropium (Duoneb) 3 ml Q8H RESP THERAPY HHN Last administered on 06/03/19 16:57; Admin Dose 3 ML; Start 06/03/19 at 00:00 Docusate Sodium (Colace Liquid Cup) 100 mg BID GTB Last administered on 06/04/19 08:49; Admin Dose 100 MG; Start 06/03/19 at 21:00 Lorazepam (Ativan) 1 mg QHS PRN PO INSOMNIA; Start 06/03/19 at 17:30 PEDRO KRUSE MD Jun 04, 2019 13:52
[2019-06-04] MEDS ORDERED: NA PHOSPHATE/BIPHOS 133 ML ENEMA PR ONE (16:00)
[2019-06-04 16:10] VITALS: BP 99/60; PULSE 101; RESP 16
--- NOTE | 2019-06-04 19:42 | CONS ---
Assessment/Plan Assessment/Plan Assessment/Plan (Daily) Assessment/Plan (Daily) Hospital Course (Demo Recall) 73 yo female 1. Dysphagia or failure to thrive, progressive - Patient has ulcerated lesion in the proximal esophagus starting from cricopharyngeal sphincter with narrowing of the lumen and this was confirmed on the CT scan of the neck 2. Weight loss. 3. Cardiomyopathy with ejection fraction of 20% to 25%. 4. History of Hodgkin's lymphoma. 5. Depression. 6. Kyphosis. 7. Hypertension. 8. Status post left subclavian pacemaker implantation. 9. 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 Salomon she wants her tissue diagnosis. Patient last dose of Plavix was on . I will have to wait for 5 days. Second brushing pending Consultation Date/Type/Reason Admit Date/Time May 27, 2019 at 13:49 Initial Consult Date Requesting Provider: PEDRO KRUSE MD Date/Time of Note DATE: 06/04/19 TIME: 19:41 24 HR Interval Summary Constitutional: no complaints, improved Exam/Review of Systems Exam Vitals Vital Signs Date Temp Pulse Resp B/P (MAP) Pulse Ox O2 O2 Flow FiO2 Time Delivery Rate 06/04/19 98.0 101 16 99/60 (73) 96 Room Air 16:10 06/03/19 21 21:31 06/01/19 2.0 16:45 Intake and Output 06/03/19 06/03/19 06/04/19 1515:00 23:00 07:00 IntakeIntake Total 720 ml 720 ml BalanceBalance 720 ml 720 ml Constitutional: alert, oriented, well developed Psych: no complaints, nl mood/affect Head: normocephalic, atraumatic Eyes: nl conjunctiva, EOMI, nl lids, nl sclera, PERRL ENMT: nl external ears & nose, nl lips & teeth, nl nasal mucosa & septum Neck: supple, non-tender Respiratory: clear to auscultation, normal air movement Cardiovascular: regular rate and rhythm, nl pulses Gastrointestinal: soft, nl liver, spleen, non-tender Musculoskeletal: nl extremities to inspection, nl gait and stance Extremities: normal pulses 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: 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 II-XII intact, nl mental status, nl speech, nl strength Skin: nl turgor; No rash or lesions Lymph: nl lymph nodes Results Result Diagram: 06/01/19 0753 06/01/19 0753 Medications Medication Current Medications Aspirin (Aspirin) 81 mg DAILY PO Last administered on 05/30/19 09:09; Admin Dose 81 MG; Start 05/27/19 at 18:30; Status Hold Clopidogrel Bisulfate (plaVIX) 75 mg DAILY PO Last administered on 05/30/19 09:07; Admin Dose 75 MG; Start 05/27/19 at 18:30; Status Hold Folic Acid (Folic Acid) 1 mg DAILY PO Last administered on 06/04/19 08:50; Admin Dose 1 MG; Start 05/27/19 at 18:30 Magnesium Oxide (Mag-Ox 400) 400 mg DAILY PO Last administered on 06/04/19 08:49; Admin Dose 400 MG; Start 05/27/19 at 18:30 Megestrol Acetate (Megace) 40 mg TID PO Last administered on 06/04/19 12:35; Admin Dose 40 MG; Start 05/27/19 at 21:00 Nystatin (Nystatin Susp) 5 ml Q4 PO Last administered on 06/04/19 08:50; Admin Dose 5 ML; Start 05/27/19 at 21:00 Potassium Chloride (Micro-K) 8 meq DAILY PO Last administered on 06/04/19 08:50; Admin Dose 8 MEQ; Start 05/27/19 at 18:30 Sacubitril/ Valsartan (Entresto 24 Mg-26 Mg) 1 tab BID PO Last administered on 06/03/19 21:06; Admin Dose 1 TAB; Start 05/27/19 at 21:00 Ondansetron HCl (Zofran Inj) 4 mg Q4H PRN IV NAUSEA AND/OR VOMITING Last administered on 06/02/19 23:32; Admin Dose 4 MG; Start 05/27/19 at 18:30 Acetaminophen (Tylenol Tab) 500 mg Q6H PRN PO MILD PAIN(1-3)OR ELEVATED TEMP Last administered on 05/31/19 00:43; Admin Dose 500 MG; Start 05/27/19 at 18:30 Albuterol/ Ipratropium (Duoneb) 3 ml Q6H RESP THERAPY PRN HHN SHORTNESS OF BREATH Last administered on 06/03/19 21:31; Admin Dose 3 ML; Start 05/27/19 at 18:30 Lidocaine (Lidoderm) 1 patch DAILY TD Last administered on 06/04/19 08:52; Admin Dose 1 PATCH; Start 05/27/19 at 18:30 [facility] This patient meyer... PRN PRN XX WOUND CARE; Start 05/27/19 at 20:00 Digoxin (Digoxin) 0.125 mg DAILY@1300 PO Last administered on 06/04/19 12:36; Admin Dose 0.125 MG; Start 05/28/19 at 13:00 Furosemide (Lasix) 40 mg BID DIURETICS IV Last administered on 06/03/19 17:28; Admin Dose 40 MG; Start 05/29/19 at 18:00 Metoprolol Succinate (Toprol Xl) 12.5 mg DAILY PO Last administered on 06/03/19 08:55; Admin Dose 12.5 MG; Start 05/30/19 at 09:00 Levothyroxine Sodium (Synthroid) 100 mcg BEFORE BREAKFAST PO Last administered on 06/03/19 06:41; Admin Dose 100 MCG; Start 06/01/19 at 07:00 Albuterol/ Ipratropium (Duoneb) 3 ml Q8H RESP THERAPY HHN Last administered on 06/03/19 16:57; Admin Dose 3 ML; Start 06/03/19 at 00:00 Docusate Sodium (Colace Liquid Cup) 100 mg BID GTB Last administered on 06/04/19 08:49; Admin Dose 100 MG; Start 06/03/19 at 21:00 Lorazepam (Ativan) 1 mg QHS PRN PO INSOMNIA; Start 06/03/19 at 17:30 HUMZA LIAO MD Jun 04, 2019 19:42
[2019-06-04] MEDS: ALBUTEROL/IPRATROPIUM (NEB) 3 ML AMP HHN PRN (19:56)
[2019-06-04 20:00] VITALS: BP 111/69; PULSE 64; RESP 17
--- NOTE | 2019-06-04 22:10 | CONS ---
Assessment/Plan Assessment/Plan Hospital Course (Demo Recall) Hodgkin lymphoma- s/p chemotherapy PT HAS HX PROGRESSIVE REFRACTORY DIS POST CHEMO AND IMMUNOTHERAPY, MOST RECENT PET/CT SHOWED SOME IMPROVEMENT RESTAGING- OVERALL NO PROGRESSION BUT New splenic masses are now identified. PET scan POST DC DYSPHAGIA ESOPHAGEAL LESION, PATH BENIGN I REVIEWED THE PROCEDURE NOTE, D/W DR LIAO AND FAMILY- RE ANOTHER ENDOSCOPY AND RE BX PT IS REFUSING ANOTHER ENDOSCOPY CEA- N FIRST PATH- BENIGN Patient has ulcerated lesion in the proximal esophagus starting from cricopharyngeal sphincter with narrowing of the lumen and this was confirmed on the CT scan of the neck PLAN- GT, ANTIULCER TREATMENT PER GI OK TO DC , F-UP POST DC Anemia WITH COMPONENT ACD monitor Severe respiratory distress improving. HX IHD angina, Low LVEF dropped. Findings most consistent with mild ADHF with associated type II NSTEMI HX Pulmonary edema Osteoarthritis with pain syndrome Anxiety disorder. Depression with grief reaction-s/p loss of . Urinary incontinence. Osteoporosis. Kyphosis. Postmenopausal syndrome. Brain atrophy on CT. Left sphenoid sinusitis on CT. Left ventricular hypertrophy. Urinary incontinence. Cerebrovascular accident, with left facial drooling, left facial weakness, with slurred speech and dysphagia. Mild left upper extremity weakness.mostly corrected. Hypertension, now normotensive. HX of PTCA with one sent and 3 balloon dilatation of narrow coronary arteries(; Medication noncompliance. Consultation Date/Type/Reason Admit Date/Time May 27, 2019 at 13:49 Initial Consult Date Requesting Provider: PEDOR KRUSE MD Date/Time of Note DATE: 06/04/19 TIME: 22:07 24 HR Interval Summary Free Text/Dictation ALL NOTED D/W DR KRUSE AND DR GONZALES D/W PT AND FAMILY PT IS REFUSING REPEATED PROCEDURE Exam/Review of Systems Exam Vitals Vital Signs Date Temp Pulse Resp B/P (MAP) Pulse Ox O2 O2 Flow FiO2 Time Delivery Rate 06/04/19 97.8 64 17 111/69 96 20:00 (83) 06/04/19 21 19:56 06/04/19 Room Air 16:10 06/01/19 2.0 16:45 Intake and Output 06/03/19 06/03/19 06/04/19 1515:00 23:00 07:00 IntakeIntake Total 720 ml 720 ml BalanceBalance 720 ml 720 ml Exam Constitutional: alert, oriented, well developed Psych: no complaints, nl mood/affect Head: normocephalic, atraumatic Eyes: nl conjunctiva, EOMI, nl lids, nl sclera, PERRL ENMT: nl external ears & nose, nl lips & teeth, nl nasal mucosa & septum Neck: supple, non-tender Respiratory: clear to auscultation, normal air movement Cardiovascular: regular rate and rhythm, nl pulses Gastrointestinal: soft, nl liver, spleen, non-tender, GT in place Musculoskeletal: nl extremities to inspection, nl gait and stance Extremities: normal pulses 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: JET INSPECTOR II-XII intact, nl mental status, nl speech, nl strength Skin: nl turgor; No rash or lesions Lymph: nl lymph nodes Results Result Diagram: 06/01/19 0753 06/01/19 075 Medications Medication Current Medications Aspirin (Aspirin) 81 mg DAILY PO Last administered on 05/30/19 09:09; Admin Dose 81 MG; Start 05/27/19 at 18:30; Status Hold Clopidogrel Bisulfate (plaVIX) 75 mg DAILY PO Last administered on 05/30/19 09:07; Admin Dose 75 MG; Start 05/27/19 at 18:30; Status Hold Folic Acid (Folic Acid) 1 mg DAILY PO Last administered on 06/04/19 08:50; Admin Dose 1 MG; Start 05/27/19 at 18:30 Magnesium Oxide (Mag-Ox 400) 400 mg DAILY PO Last administered on 06/04/19 08:49; Admin Dose 400 MG; Start 05/27/19 at 18:30 Megestrol Acetate (Megace) 40 mg TID PO Last administered on 06/04/19 20:07; Admin Dose 40 MG; Start 05/27/19 at 21:00 Nystatin (Nystatin Susp) 5 ml Q4 PO Last administered on 06/04/19 08:50; Admin Dose 5 ML; Start 05/27/19 at 21:00 Potassium Chloride (Micro-K) 8 meq DAILY PO Last administered on 06/04/19 08:50; Admin Dose 8 MEQ; Start 05/27/19 at 18:30 Sacubitril/ Valsartan (Entresto 24 Mg-26 Mg) 1 tab BID PO Last administered on 06/04/19 20:07; Admin Dose 1 TAB; Start 05/27/19 at 21:00 Ondansetron HCl (Zofran Inj) 4 mg Q4H PRN IV NAUSEA AND/OR VOMITING Last administered on 06/02/19 23:32; Admin Dose 4 MG; Start 05/27/19 at 18:30 Acetaminophen (Tylenol Tab) 500 mg Q6H PRN PO MILD PAIN(1-3)OR ELEVATED TEMP Last administered on 05/31/19 00:43; Admin Dose 500 MG; Start 05/27/19 at 18:30 Albuterol/ Ipratropium (Duoneb) 3 ml Q6H RESP THERAPY PRN HHN SHORTNESS OF BREATH Last administered on 06/04/19 19:56; Admin Dose 3 ML; Start 05/27/19 at 18:30 Lidocaine (Lidoderm) 1 patch DAILY TD Last administered on 06/04/19 08:52; Admin Dose 1 PATCH; Start 05/27/19 at 18:30 Miscellaneous Information (Pending [facility] Order For Wound Care) This patient meyer... PRN PRN XX WOUND CARE; Start 05/27/19 at 20:00 Digoxin (Digoxin) 0.125 mg DAILY@1300 PO Last administered on 06/04/19 12:36; Admin Dose 0.125 MG; Start 05/28/19 at 13:00 Furosemide (Lasix) 40 mg BID DIURETICS IV Last administered on 06/03/19 17:28; Admin Dose 40 MG; Start 05/29/19 at 18:00 Metoprolol Succinate (Toprol Xl) 12.5 mg DAILY PO Last administered on 06/03/19 08:55; Admin Dose 12.5 MG; Start 05/30/19 at 09:00 Levothyroxine Sodium (Synthroid) 100 mcg BEFORE BREAKFAST PO Last administered on 06/03/19 06:41; Admin Dose 100 MCG; Start 06/01/19 at 07:00 Albuterol/ Ipratropium (Duoneb) 3 ml Q8H RESP THERAPY HHN Last administered on 06/03/19 16:57; Admin Dose 3 ML; Start 06/03/19 at 00:00 Docusate Sodium (Colace Liquid Cup) 100 mg BID GTB Last administered on 7/23/19at 08:49; Admin Dose 100 MG; Start 06/03/19 at 21:00 Lorazepam (Ativan) 1 mg QHS PRN PO INSOMNIA; Start 06/03/19 at 17:30 KALPANA ANGELES MD Jun 04, 2019 22:10
[2019-06-05] VITALS: BP 119/68; PULSE 109; RESP 17
[2019-06-05] MEDS: NYSTATIN SUSP 5 ML CUP PO SCH ×6 (00:23→20:05)
[2019-06-05 04:00] VITALS: BP 103/61; PULSE 98; RESP 17
[2019-06-05] MEDS: FUROSEMIDE 40 MG INJ IV SCH ×2 (05:46→17:48)
[2019-06-05] MEDS: LEVOTHYROXINE 100 MCG TAB PO SCH (06:17)
[2019-06-05] MEDS: DOCUSATE SODIUM 10 MG/ML (10ML CUP) GTB SCH ×3 (09:00→20:15)
[2019-06-05] MEDS ORDERED: POTASSIUM CHLORIDE 20 MEQ POWDER FOR ORAL SOLN GTB SCH (09:00)
[2019-06-05] MEDS: SACUBITRIL/VALSARTAN (24mg-26mg) TABLET PO SCH ×2 (09:00→20:05)
--- NOTE | 2019-06-05 09:18 | PN ---
Date/Time of Note Date/Time of Note DATE: 06/05/19 TIME: 09:11 Assessment/Plan VTE Prophylaxis Risk score (from Ns)>0 risk: 3 SCD applied (from Ns): Yes SCD contraindicated: other Pharmacological prophylaxis: LMWH Pharm contraindication: patient refusal Lines/Catheters IV C[facility]ter [facility]from [facility]): Peripheral IV Central line still needed: No Urinary Cath still in place: No Reason Cath still needed: urinary retention Assessment/Plan Assessment/Plan 1. S/P G-tube placement due to of Dysphagia.Ulceration of the upper esophagus with inability to eat. Unable to swallow most of the time. Regurgitating even saliva. On and off able to swallow. Severe decrease of voice with substernal pressure sensation severe respiratory distress with worsening of wheezing and inability to sleep. Unable to take medications due to above 2.IHD angina, new onset CT by positive troponin series still high. Discussed with Dr. Alvarez. HX of recent PTCA with one stent and 3 balloon dilatation of narrow coronary arteries(; according to the daughter). Status post stapling of mitral valve 6 months ago in [facility] with improvement of condition immediately after the procedure but still she is having frequent hospitalizations. Although it is evident that the cause is not over drinking possibly medication noncompliance. Discussed with Dr. Alvarez. 3. Dysphagia to solids and sometimes to liquids now to everything. Refuses to eat secondary to pain.. Called Dr.David Silver; [phone] for a ENT consultation. 4. Pulmonary edema by x-ray with wheezing on admission, improved after lasix. Ejection fraction was at 25-30 %. Improved. 5. History of Hodgkin lymphoma:. 6. Osteoarthritis with pain syndrome 7. Anxiety disorder. 8. Depression with grief reaction-s/p loss of . 9. Urinary incontinence. 10. Osteoporosis. 11. Kyphosis. 12. Postmenopausal syndrome. 13. Anemia with nl iron. 14. Brain atrophy on CT. 15. Left sphenoid sinusitis on CT. 16. Left ventricular hypertrophy. 17. Urinary incontinence with recurrent UTIs. Now with enterococcus species. 18.Cerebrovascular accident, with left facial drooling, left facial weakness, with slurred speech and dysphagia. Mild left upper extremity weakness. 19. Hypertension, now normotensive.Cardiomegaly on cxr 20. Status post left subclavian area pacemaker implantation about 3 months ago. 21. Status post mitral valve endocardial manipulation with stapling of the valves with good clinical results. 22. Recurrent episodes of V. tach now 8 complexes on a monitor and SVT; placed on the monitor but cardiology consult. 23.Weight loss mainly due to of not eating well. 24.Sleeplessness 25.Poor self expression capacity and getting worse. Talks for minutes but unable to conclude talk or be precise. 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 27. Weight loss-now she is gaining weight after starting the G-tube feeding. 28. 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 Expecting also the possibility of a second malignancy to be excluded 29.Medication noncompliance. Result Diagram: 06/01/19 0753 06/01/19 0753 Subjective 24 Hr Interval Summary Free Text/Dictation Cough with expectoration of saliva. The patient constantly is coughing. She wants to use a ice chips. When she is attempting to swallow the cough is becoming stronger more frequent. Explained the patient the necessity of suction of the saliva to prevent the cough. Again discussed the necessity of biopsy of esophageal mass to finalize the diagnosis. At the time of this discussion she is refusing further tests. I had a conversation with both sons and the daughter of patient yesterday explained the necessity of a biopsy they agreed. I received a call from [id number] last name Corry. She promised me to talk with the patient again she said she had influence on her after understanding that we are switching the second malignancy or possibility of fistula. The necessity of the procedure she understood and she promised today to talk with the patient. There is option that she can leave the floor AMA. If she goes AMA then palliative care will be arranged as an outpatient after discussing with the family. Constitutional: improved, chills, poor po, requiring O2; No no complaints, No diaphoresis, No disoriented, No febrile, No requiring IVF, No other Eyes: No no complaints, No pain, No discharge, No redness, No visual change, No other ENT: congestion, dysphagia, sore throat; No no complaints, No bleeding, No pain, No discharge, No other Respiratory: cough, shortness of breath, sputum; No no complaints, No pain, No pleuritic pain, No wheezing, No other Cardiovascular: orthopenea Gastrointestinal: constipation, flatus, other (Despite of yesterday's [employer] and feeding her orally per day she did have a bowel movement.); No no complaints, No pain, No blood, No decreased appetite, No diarrhea, No nausea, No passing stool, No vomiting Genitourinary: dysuria; No no complaints, No bleeding, No discharge, No flank pain, No hematuria, No other Musculoskeletal: back pain, bone/joint pain Skin: No no complaints, No bruising, No erythema, No laceration, No pruritis, No rash, No skin lesions, No other Neurologic: headache; No no complaints, No confusion, No dizziness, No focal-weakness, No syncope, No seizure, No other Endocrine: No no complaints, No polyuria, No polydypsia, No dry skin, No temp intolerance, No other Psychological: anxiety; No no complaints, No nl mood/affect, No confusion, No depression, No suicid al, No other Exam/Review of Systems Exam Vitals Vital Signs Date Temp Pulse Resp B/P (MAP) Pulse Ox O2 O2 Flow FiO2 Time Delivery Rate 06/05/19 97.6 98 17 103/61 96 04:00 (75) 06/04/19 21 23:59 06/04/19 Room Air 16:10 06/01/19 2.0 16:45 Intake and Output 06/04/19 06/04/19 06/05/19 1515:00 23:00 07:00 IntakeIntake Total 940 ml BalanceBalance 940 ml Constitutional: alert, oriented, well developed, distress, frail; No non-verbal, No obese, No other Psych: anxiety; No no complaints, No nl mood/affect, No confusion, No depression, No suicidal, No other Head: normocephalic, atraumatic; No lacerations, No hematomas, No other Eyes: EOMI, nl lids; No nl conjunctiva, No nl sclera, No PERRL, No icteric, No fundi, disc, No other ENMT: other (Severely decreased voice but able to comprehend talk constantly coughing); No nl external ears & nose, No nl lips & teeth, No nl nasal mucosa & septum, No mucosa pink and moist, No intubated, No tympanic membranes Neck: nuchal rigidity; No supple, No non-tender, No jvd, No bruits, No masses, No thyromegaly, No other Respiratory: clear to auscultation, normal air movement; No congested cough, No crackles/rales, No diminished breath sounds, No intercostal retraction, No labored breathing, No respirations, No tactile fremitus, No wheezing, No other Cardiovascular: regular rate and rhythm, systolic murmur; No nl pulses, No bruits, No diastolic murmur, No edema, No gallop, No irregular rhythm, No jugular venous distention (JVD), No murmurs/extra sounds, No rub, No S3, No S4, No other Gastrointestinal: soft, nl liver, spleen, non-tender, bowel sounds; No ascites, No distended, No firm, No hepatomegaly, No mass, No rebound or guarding, No splenomegaly, No surgical scars, No tender, No other Musculoskeletal: joint tenderness; No nl extremities to inspection, No nl gait and stance, No muscle tone, No muscle weakness, No range of motion, No spine non-tender, No swelling, No other Extremities: No normal pulses, No calf tenderness, No cyanosis, No clubbing, No edema, No pitting pedal edema, No palpable cord, No tenderness, No other 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: GENERAL FOREMAN II-XII intact; No nl mental status, No nl speech, No nl strength, No confused, No DTR's symmetric, No focal weakness, No lethargic, No numbness, No reflexes, No unresponsive, No other Skin: nl turgor (Creased.) Lymph: No nl lymph nodes, No enlarged, No nontender, No other Medications Medication Current Medications Aspirin (Aspirin) 81 mg DAILY PO Last administered on 05/30/19 09:09; Admin Dose 81 MG; Start 05/27/19 at 18:30; Status Hold Clopidogrel Bisulfate (plaVIX) 75 mg DAILY PO Last administered on 05/30/19 09:07; Admin Dose 75 MG; Start 05/27/19 at 18:30; Status Hold Folic Acid (Folic Acid) 1 mg DAILY PO Last administered on 06/04/19 08:50; Admin Dose 1 MG; Start 05/27/19 at 18:30 Magnesium Oxide (Mag-Ox 400) 400 mg DAILY PO Last administered on 06/04/19 08 :49; Admin Dose 400 MG; Start 05/27/19 at 18:30 Megestrol Acetate (Megace) 40 mg TID PO Last administered on 06/04/19 20:07; Admin Dose 40 MG; Start 05/27/19 at 21:00 Nystatin (Nystatin Susp) 5 ml Q4 PO Last administered on 06/04/19 08:50; Admin Dose 5 ML; Start 05/27/19 at 21:00 Potassium Chloride (Micro-K) 8 meq DAILY PO Last administered on 06/04/19 08:50; Admin Dose 8 MEQ; Start 05/27/19 at 18:30 Sacubitril/ Valsartan (Entresto 24 Mg-26 Mg) 1 tab BID PO Last administered on 06/04/19 20:07; Admin Dose 1 TAB; Start 05/27/19 at 21:00 Ondansetron HCl (Zofran Inj) 4 mg Q4H PRN IV NAUSEA AND/OR VOMITING Last administered on 06/02/19 23:32; Admin Dose 4 MG; Start 05/27/19 at 18:30 Acetaminophen (Tylenol Tab) 500 mg Q6H PRN PO MILD PAIN(1-3)OR ELEVATED TEMP Last administered on 05/31/19 00:43; Admin Dose 500 MG; Start 05/27/19 at 18:30 Albuterol/ Ipratropium (Duoneb) 3 ml Q6H RESP THERAPY PRN HHN SHORTNESS OF BREATH Last administered on 06/04/19 19:56; Admin Dose 3 ML; Start 05/27/19 at 18:30 Lidocaine (Lidoderm) 1 patch DAILY TD Last administered on 06/04/19 08:52; Admin Dose 1 PATCH; Start 05/27/19 at 18:30 Miscellaneous Information (Pending [facility] Order For Wound Care) This patient meyer... PRN PRN XX WOUND CARE; Start 05/27/19 at 20:00 Digoxin (Digoxin) 0.125 mg DAILY@1300 PO Last administered on 06/04/19 12:36; Admin Dose 0.125 MG; Start 05/28/19 at 13:00 Furosemide (Lasix) 40 mg BID DIURETICS IV Last administered on 06/05/19 05:46; Admin Dose 40 MG; Start 05/29/19 at 18:00 Metoprolol Succinate (Toprol Xl) 12.5 mg DAILY PO Last administered on 06/03/19 08:55; Admin Dose 12.5 MG; Start 05/30/19 at 09:00 Levothyroxine Sodium (Synthroid) 100 mcg BEFORE BREAKFAST PO Last administered on 06/05/19 06:17; Admin Dose 100 MCG; Start 06/01/19 at 07:00 Albuterol/ Ipratropium (Duoneb) 3 ml Q8H RESP THERAPY HHN Last administered on 06/04/19at 23:59; Admin Dose 3 ML; Start 06/03/19 at 00:00 Docusate Sodium (Colace Liquid Cup) 100 mg BID GTB Last administered on 06/04/19 08:49; Admin Dose 100 MG; Start 06/03/19 at 21:00 Lorazepam (Ativan) 1 mg QHS PRN PO INSOMNIA; Start 06/03/19 at 17:30 PEDRO KRUSE MD Jun 05, 2019 09:18
[2019-06-05] MEDS ORDERED: POTASSIUM CHLORIDE 20 MEQ POWDER FOR ORAL SOLN GTB ONE (09:30)
[2019-06-05] MEDS: MEGESTROL 40 MG TAB PO SCH ×3 (09:36→20:06)
[2019-06-05] MEDS: MAGNESIUM OXIDE 400 MG TAB PO SCH (09:37)
[2019-06-05] MEDS: FOLIC ACID 1 MG TAB PO SCH (09:38)
[2019-06-05] MEDS: METOPROLOL (XL) 25 MG TAB PO SCH (09:38)
[2019-06-05] MEDS: LIDOCAINE 5% PATCH TD SCH (09:41)
[2019-06-05] MEDS: POTASSIUM CHLORIDE 20 MEQ POWDER FOR ORAL SOLN GTB SCH (09:43)
[2019-06-05] MEDS: ALBUTEROL/IPRATROPIUM (NEB) 3 ML AMP HHN SCH ×2 (11:26→16:14)
[2019-06-05 11:32] VITALS: BP 103/59; PULSE 84; RESP 20
--- NOTE | 2019-06-05 12:16 | CONS ---
Assessment/Plan Assessment/Plan Hospital Course (Demo Recall) IMPRESSION: 1. Preoperative evaluation prior to endoscopy for evaluation of the patient's dysphagia and odynophagia, in a patient that has a severely depressed ejection fraction, mild infiltrates on her chest x-ray but not in gross decompensated congestive heart failure, able to lie flat with good saturations and a recent catheterization in April revealing patent stents.- Now post-op s/p endoscopy with findings of esophageal mass. Now postop s/p G tube placement 2. Cardiomyopathy with severely depressed left ventricular ejection fraction. 3. Congestive heart failure, systolic, [id number]. 4. Dysphagia and odynophagia now s/p G tube 5. Vocal cord paresis. 6. Hypothyroidism. 7. History of percutaneous transluminal coronary angioplasty and stent placement, patent via catheterization 04/2019, with most recent stents actually placed in 2016, with a type 2 non-ST elevated myocardial infarction prior to last catheterization, and a stress test 02/2019, revealing no reversible ischemia with ejection fraction of 19%. 8. [id number]. 9. Lymphoma Hodgkin's ongoing status post chemotherapy. 10. History of cerebrovascular accident. 11. Hypertension. 12. Dyslipidemia. 13. Hypothyroidism. 14. Urinary incontinence. 15. Psychiatric disorder. 16. Nonsustained ventricular tachycardia-no recurrence, neg trop x 3 17. H/O implantable cardioverter-defibrillator. Recc: -Tele -serial ecg's -Contineu toprol/entresto as tolerated thru G tube at this time -continue digoxin -asa/plavix on hold in anticipation of repeat esophageal BX -Continue lasix diuresis -s/p d/c imdur given marginal BP Consultation Date/Type/Reason Admit Date/Time May 27, 2019 at 13:49 Initial Consult Date 05/29/19 Type of Consult Cardiology Reason for Consultation CHF Requesting Provider: PEDRO KRUSE MD Date/Time of Note DATE: 06/05/19 TIME: 12:13 Exam/Review of Systems Vital Signs Vitals Vital Signs Date Temp Pulse Resp B/P (MAP) Pulse Ox O2 O2 Flow FiO2 Time Delivery Rate 06/05/19 98.3 84 20 103/59 98 Room Air 11:32 (74) 06/05/19 21 11:29 06/01/19 2.0 16:45 Intake and Output 06/04/19 06/04/19 06/05/19 1515:00 23:00 07:00 IntakeIntake Total 940 ml BalanceBalance 940 ml Exam Exam Review of Systems: CONSTITUTIONAL: No fevers, chills. PULMONARY: No sob CARDIOVASCULAR: No chest pain/palpitations GASTROINTESTINAL: No nausea/vomiting. GENITOURINARY: No hematuria/dysuria. MUSCULOSKELETAL: No myagias/arthalgias. PSYCHIATRIC: The patient denies depression. NEUROLOGIC: No weakness Constitutional: alert Psych: no complaints Head: normocephalic ENMT: mucosa pink and moist Neck: supple, jvd (9 cm water) Respiratory: diminished breath sounds (at bases/B) Cardiovascular: regular rate and rhythm Gastrointestinal: soft, non-tender Musculoskeletal: muscle weakness (mild generalized) Extremities: pitting pedal edema (trace ?E/B) 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: lethargic Labs Result Diagram: 06/01/19 0753 06/01/19 0753 Medications Medications Current Medications Aspirin (Aspirin) 81 mg DAILY PO Last administered on 05/30/19 09:09; Admin Dose 81 MG; Start 05/27/19 at 18:30; Status Hold Clopidogrel Bisulfate (plaVIX) 75 mg DAILY PO Last administered on 05/30/19 09:07; Admin Dose 75 MG; Start 05/27/19 at 18:30; Status Hold Folic Acid (Folic Acid) 1 mg DAILY PO Last administered on 06/05/19 09:38; Admin Dose 1 MG; Start 05/27/19 at 18:30 Magnesium Oxide (Mag-Ox 400) 400 mg DAILY PO Last administered on 06/05/19 09:37; Admin Dose 400 MG; Start 05/27/19 at 18:30 Megestrol Acetate (Megace) 40 mg TID PO Last administered on 06/05/19 09:36; Admin Dose 40 MG; Start 05/27/19 at 21:00 Nystatin (Nystatin Susp) 5 ml Q4 PO Last administered on 06/05/19 09:38; Admin Dose 5 ML; Start 05/27/19 at 21:00 Sacubitril/ Valsartan (Entresto 24 Mg-26 Mg) 1 tab BID PO Last administered on 06/04/19 20:07; Admin Dose 1 TAB; Start 05/27/19 at 21:00 Ondansetron HCl (Zofran Inj) 4 mg Q4H PRN IV NAUSEA AND/OR VOMITING Last administered on 06/02/19 23:32; Admin Dose 4 MG; Start 05/27/19 at 18:30 Acetaminophen (Tylenol Tab) 500 mg Q6H PRN PO MILD PAIN(1-3)OR ELEVATED TEMP Last administered on 05/31/19 00:43; Admin Dose 500 MG; Start 05/27/19 at 18:30 Albuterol/ Ipratropium (Duoneb) 3 ml Q6H RESP THERAPY PRN HHN SHORTNESS OF BREATH Last administered on 06/04/19 19:56; Admin Dose 3 ML; Start 05/27/19 at 18:30 Lidocaine (Lidoderm) 1 patch DAILY TD Last administered on 06/05/19 09:41; Admin Dose 1 PATCH; Start 05/27/19 at 18:30 Miscellaneous Information (Pending [facility] Order For Wound Care) This patient meyer... PRN PRN XX WOUND CARE; Start 05/27/19 at 20:00 Digoxin (Digoxin) 0.125 mg DAILY@1300 PO Last administered on 06/04/19 12:36; Admin Dose 0.125 MG; Start 05/28/19 at 13:00 Furosemide (Lasix) 40 mg BID DIURETICS IV Last administered on 06/05/19 05:46 ; Admin Dose 40 MG; Start 05/29/19 at 18:00 Metoprolol Succinate (Toprol Xl) 12.5 mg DAILY PO Last administered on 06/05/19 09:38; Admin Dose 12.5 MG; Start 05/30/19 at 09:00 Levothyroxine Sodium (Synthroid) 100 mcg BEFORE BREAKFAST PO Last administered on 06/05/19 06:17; Admin Dose 100 MCG; Start 06/01/19 at 07:00 Albuterol/ Ipratropium (Duoneb) 3 ml Q8H RESP THERAPY HHN Last administered on 06/05/19 11:26; Admin Dose 3 ML; Start 06/03/19 at 00:00 Docusate Sodium (Colace Liquid Cup) 100 mg BID GTB Last administered on 06/04/19 08:49; Admin Dose 100 MG; Start 06/03/19 at 21:00 Lorazepam (Ativan) 1 mg QHS PRN PO INSOMNIA; Start 06/03/19 at 17:30 Potassium Chloride (Potassium Chloride Pwd/Soln) 8 meq DAILY GTB Last administered on 06/05/19at 09:43; Admin Dose 8 MEQ; Start 06/05/19 at 09:30 ARIEL HOBBS Jun 05, 2019 12:16
[2019-06-05] MEDS: DIGOXIN 0.125 MG TAB PO SCH (13:19)
[2019-06-05 15:45] VITALS: BP 96/54; PULSE 64
--- NOTE | 2019-06-05 16:55 | CONS ---
Assessment/Plan Assessment/Plan Assessment/Plan (Daily) Assessment/Plan (Daily) Hospital Course (Demo Recall) 73 yo female 1. Dysphagia or failure to thrive, progressive - Patient has ulcerated lesion in the proximal esophagus starting from cricopharyngeal sphincter with narrowing of the lumen and this was confirmed on the CT scan of the neck 2. Weight loss. 3. Cardiomyopathy with ejection fraction of 20% to 25%. 4. History of Hodgkin's lymphoma. 5. Depression. 6. Kyphosis. 7. Hypertension. 8. Status post left subclavian pacemaker implantation. 9. 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 If ENT surgeon can take a biopsy which the rigid scope then also is fine with me Consultation Date/Type/Reason Admit Date/Time May 27, 2019 at 13:49 Initial Consult Date Requesting Provider: PEDRO KRUSE MD Date/Time of Note DATE: 06/05/19 TIME: 16:54 24 HR Interval Summary Constitutional: no complaints Exam/Review of Systems Exam Vitals Vital Signs Date Temp Pulse Resp B/P (MAP) Pulse Ox O2 O2 Flow FiO2 Time Delivery Rate 06/05/19 99.0 64 96/54 (68) 96 Room Air 15:45 06/05/19 20 11:32 06/05/19 21 11:29 06/01/19 2.0 16:45 Intake and Output 06/04/19 06/04/19 06/05/19 1515:00 23:00 07:00 IntakeIntake Total 940 ml BalanceBalance 940 ml Constitutional: alert, oriented, well developed Psych: no complaints, nl mood/affect Head: normocephalic, atraumatic Eyes: nl conjunctiva, EOMI, nl lids, nl sclera, PERRL ENMT: nl external ears & nose, nl lips & teeth, nl nasal mucosa & septum Neck: supple, non-tender Respiratory: clear to auscultation, normal air movement Cardiovascular: regular rate and rhythm, nl pulses Gastrointestinal: soft, nl liver, spleen, non-tender Musculoskeletal: nl extremities to inspection, nl gait and stance Extremities: normal pulses 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: 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 II-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0 Albumin 4.0 Globulin 3.00 Albumin/Globulin Ratio 1.33 Medications Medication Current Medications Aspirin (Aspirin) 81 mg DAILY PO Last administered on 05/30/19 09:09; Admin Dose 81 MG; Start 05/27/19 at 18:30; Status Hold Clopidogrel Bisulfate (plaVIX) 75 mg DAILY PO Last administered on 05/30/19 09:07; Admin Dose 75 MG; Start 05/27/19 at 18:30; Status Hold Folic Acid (Folic Acid) 1 mg DAILY PO Last administered on 06/05/19 09:38; Admin Dose 1 MG; Start 05/27/19 at 18:30 Magnesium Oxide (Mag-Ox 400) 400 mg DAILY PO Last administered on 06/05/19 09:37; Admin Dose 400 MG; Start 05/27/19 at 18:30 Megestrol Acetate (Megace) 40 mg TID PO Last administered on 06/05/19 09:36; Admin Dose 40 MG; Start 05/27/19 at 21:00 Nystatin (Nystatin Susp) 5 ml Q4 PO Last administered on 06/05/19 09:38; Admin Dose 5 ML; Start 05/27/19 at 21:00 Sacubitril/ Valsartan (Entresto 24 Mg-26 Mg) 1 tab BID PO Last administered on 06/04/19 20:07; Admin Dose 1 TAB; Start 05/27/19 at 21:00 Ondansetron HCl (Zofran Inj) 4 mg Q4H PRN IV NAUSEA AND/OR VOMITING Last administered on 06/02/19 23:32; Admin Dose 4 MG; Start 05/27/19 at 18:30 Acetaminophen (Tylenol Tab) 500 mg Q6H PRN PO MILD PAIN(1-3)OR ELEVATED TEMP Last administered on 05/31/19 00:43; Admin Dose 500 MG; Start 05/27/19 at 18:30 Albuterol/ Ipratropium (Duoneb) 3 ml Q6H RESP THERAPY PRN HHN SHORTNESS OF BREATH Last administered on 06/04/19 19:56; Admin Dose 3 ML; Start 05/27/19 at 18:30 Lidocaine (Lidoderm) 1 patch DAILY TD Last administered on 06/05/19 09:41; Admin Dose 1 PATCH; Start 05/27/19 at 18:30 Miscellaneous Information (Pending [facility] Order For Wound Care) This patient meyer... PRN PRN XX WOUND CARE; Start 05/27/19 at 20:00 Digoxin (Digoxin) 0.125 mg DAILY@1300 PO Last administered on 06/05/19 13:19; Admin Dose 0.125 MG; Start 05/28/19 at 13:00 Furosemide (Lasix) 40 mg BID DIURETICS IV Last administered on 06/05/19 05:46; Admin Dose 40 MG; Start 05/29/19 at 18:00 Metoprolol Succinate (Toprol Xl) 12.5 mg DAILY PO Last administered on 06/05/19 09:38; Admin Dose 12.5 MG; Start 05/30/19 at 09:00 Levothyroxine Sodium (Synthroid) 100 mcg BEFORE BREAKFAST PO Last administered on 06/05/19 06:17; Admin Dose 100 MCG; Start 06/01/19 at 07:00 Albuterol/ Ipratropium (Duoneb) 3 ml Q8H RESP THERAPY HHN Last administered on 06/05/19 16:14; Admin Dose 3 ML; Start 06/03/19 at 00:00 Docusate Sodium (Colace Liquid Cup) 100 mg BID GTB Last administered on 05/14 08:49; Admin Dose 100 MG; Start 06/03/19 at 21:00 Lorazepam (Ativan) 1 mg QHS PRN PO INSOMNIA; Start 06/03/19 at 17:30 Potassium Chloride (Potassium Chloride Pwd/Soln) 8 meq DAILY GTB Last ad ministered on 06/05/19at 09:43; Admin Dose 8 MEQ; Start 06/05/19 at 09:30 HUMZA LIAO MD Jun 05, 2019 16:55
[2019-06-05 19:44] VITALS: BP 107/61; PULSE 99; RESP 18
--- NOTE | 2019-06-05 22:23 | CONS ---
Assessment/Plan Assessment/Plan Hospital Course (Demo Recall) Hodgkin lymphoma- s/p chemotherapy PT HAS HX PROGRESSIVE REFRACTOPY DIS POST CHEMO AMD IMMUNOTHERAPY, MOST RECENT PET/CT SHOWED SOME IMPROVEMENT DYSPHAGIA GI EVAL PT IS REFUSING ANOTHER UP ENDOSCOPY TO REPEAT BX Anemia WITH COMPONENT ACD monitor Severe respiratory distress improving. HX IHD angina, Low LVEF dropped. Findings most consistent with mild ADHF with associated type II NSTEMI HX Pulmonary edema Osteoarthritis with pain syndrome Anxiety disorder. Depression with grief reaction-s/p loss of . Urinary incontinence. Osteoporosis. Kyphosis. Postmenopausal syndrome. Brain atrophy on CT. Left sphenoid sinusitis on CT. Left ventricular hypertrophy. Urinary incontinence. Cerebrovascular accident, with left facial drooling, left facial weakness, with slurred speech and dysphagia. Mild left upper extremity weakness.mostly corrected. Hypertension, now normotensive. HX of PTCA with one sent and 3 balloon dilatation of narrow coronary arteries(; Medication noncompliance. Consultation Date/Type/Reason Admit Date/Time May 27, 2019 at 13:49 Initial Consult Date Type of Consult [facility] Requesting Provider: PEDRO KRUSE MD Date/Time of Note DATE: 06/05/19 TIME: 22:22 24 HR Interval Summary Free Text/Dictation ALL NOTED D/W PT, FAMILY AND DR KRUSE Exam/Review of Systems Exam Vitals Vital Signs Date Temp Pulse Resp B/P (MAP) Pulse Ox O2 O2 Flow FiO2 Time Delivery Rate 06/05/19 89 20 96 21 20:33 06/05/19 97.6 107/61 Room Air 19:44 (76) 06/01/19 2.0 16:45 Intake and Output 06/04/19 06/04/19 06/05/19 1414:59 22:59 06:59 IntakeIntake Total 940 ml BalanceBalance 940 ml Exam Constitutional: alert, oriented, well developed Psych: no complaints, nl mood/affect Head: normocephalic, atraumatic Eyes: nl conjunctiva, EOMI, nl lids, nl sclera, PERRL ENMT: nl external ears & nose, nl lips & teeth, nl nasal mucosa & septum Neck: supple, non-tender Respiratory: clear to auscultation, normal air movement Cardiovascular: regular rate and rhythm, nl pulses Gastrointestinal: soft, nl liver, spleen, non-tender, GT in place Musculoskeletal: nl extremities to inspection, nl gait and stance Extremities: normal pulses 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: CRYSTALIZER OPERATOR II-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0 Albumin 4.0 Globulin 3.00 Albumin/Globulin Ratio 1.33 Medications Medication Current Medications Aspirin (Aspirin) 81 mg DAILY PO Last administered on 05/30/19 09:09; Admin Dose 81 MG; Start 05/27/19 at 18:30; Status Hold Clopidogrel Bisulfate (plaVIX) 75 mg DAILY PO Last administered on 05/30/19 09:07; Admin Dose 75 MG; Start 05/27/19 at 18:30; Status Hold Folic Acid (Folic Acid) 1 mg DAILY PO Last administered on 06/05/19 09:38; Admin Dose 1 MG; Start 05/27/19 at 18:30 Magnesium Oxide (Mag-Ox 400) 400 mg DAILY PO Last administered on 06/05/19 09:37; Admin Dose 400 MG; Start 05/27/19 at 18:30 Megestrol Acetate (Megace) 40 mg TID PO Last administered on 06/05/19 20:06; Admin Dose 40 MG; Start 05/27/19 at 21:00 Nystatin (Nystatin Susp) 5 ml Q4 PO Last administered on 06/05/19 17:48; Admin Dose 5 ML; Start 05/27/19 at 21:00 Sacubitril/ Valsartan (Entresto 24 Mg-26 Mg) 1 tab BID PO Last administered on 06/04/19 20:07; Admin Dose 1 TAB; Start 05/27/19 at 21:00 Ondansetron HCl (Zofran Inj) 4 mg Q4H PRN IV NAUSEA AND/OR VOMITING Last administered on 06/02/19 23:32; Admin Dose 4 MG; Start 05/27/19 at 18:30 Acetaminophen (Tylenol Tab) 500 mg Q6H PRN PO MILD PAIN(1-3)OR ELEVATED TEMP Last administered on 05/31/19 00:43; Admin Dose 500 MG; Start 05/27/19 at 18:30 Albuterol/ Ipratropium (Duoneb) 3 ml Q6H RESP THERAPY PRN HHN SHORTNESS OF BREATH Last administered on 06/04/19 19:56; Admin Dose 3 ML; Start 05/27/19 at 18:30 Lidocaine (Lidoderm) 1 patch DAILY TD Last administered on 06/05/19 09:41; Admin Dose 1 PATCH; Start 05/27/19 at 18:30 Miscellaneous Information (Pending [facility] Order For Wound Care) This patient meyer... PRN PRN XX WOUND CARE; Start 05/27/19 at 20:00 Digoxin (Digoxin) 0.125 mg DAILY@1300 PO Last administered on 06/05/19 13:19; Admin Dose 0.125 MG; Start 05/28/19 at 13:00 Furosemide (Lasix) 40 mg BID DIURETICS IV Last administered on 06/05/19 17:48; Admin Dose 40 MG; Start 05/29/19 at 18:00 Metoprolol Succinate (Toprol Xl) 12.5 mg DAILY PO Last administered on 06/05/19 09:38; Admin Dose 12.5 MG; Start 05/30/19 at 09:00 Levothyroxine Sodium (Synthroid) 100 mcg BEFORE BREAKFAST PO Last administered on 06/05/19 06:17; Admin Dose 100 MCG; Start 06/01/19 at 07:00 Albuterol/ Ipratropium (Duoneb) 3 ml Q8H RESP THERAPY HHN Last administered on 06/05/19 16:14; Admin Dose 3 ML; Start 06/03/19 at 00:00 Docusate Sodium (Colace Liquid Cup) 100 mg BID GTB Last administered on 06/04/19 08:49; Admin Dose 100 MG; Start 06/03/19 at 21:00 Lorazepam (Ativan) 1 mg QHS PRN PO INSOMNIA; Start 06/03/19 at 17:30 Potassium Chloride (Potassium Chloride Pwd/Soln) 8 meq DAILY GTB Last administered on 06/05/19at 09:43; Admin Dose 8 MEQ; Start 06/05/19 at 09:30 KALPANA ANGELES MD Jun 05, 2019 22:23
[2019-06-05] MEDS: POLYETHYLENE GLYCOL 17 GM PACKET GTB SCH (23:57)
[2019-06-06 00:27] VITALS: BP 113/58; PULSE 97; RESP 18
[2019-06-06] MEDS: NYSTATIN SUSP 5 ML CUP PO SCH ×6 (00:33→20:48)
[2019-06-06] MEDS: ALBUTEROL/IPRATROPIUM (NEB) 3 ML AMP HHN SCH ×3 (00:50→17:23)
[2019-06-06 04:53] VITALS: BP 110/62; PULSE 97; RESP 16
[2019-06-06] MEDS: FUROSEMIDE 40 MG INJ IV SCH ×2 (05:32→18:00)
[2019-06-06] MEDS: LEVOTHYROXINE 100 MCG TAB PO SCH (06:05)
[2019-06-06 08:09] VITALS: BP 123/74; PULSE 110; RESP 23
[2019-06-06] MEDS: LIDOCAINE 5% PATCH TD SCH (09:00)
[2019-06-06] MEDS: DOCUSATE SODIUM 10 MG/ML (10ML CUP) GTB SCH ×2 (09:00→20:25)
[2019-06-06] MEDS: MEGESTROL 40 MG TAB PO SCH ×3 (09:00→20:28)
[2019-06-06] MEDS: FOLIC ACID 1 MG TAB PO SCH (09:00)
[2019-06-06] MEDS: METOPROLOL (XL) 25 MG TAB PO SCH (09:00)
[2019-06-06] MEDS: SACUBITRIL/VALSARTAN (24mg-26mg) TABLET PO SCH ×2 (09:00→20:27)
[2019-06-06] MEDS: POTASSIUM CHLORIDE 20 MEQ POWDER FOR ORAL SOLN GTB SCH (09:00)
[2019-06-06] MEDS: MAGNESIUM OXIDE 400 MG TAB PO SCH (09:00)
[2019-06-06] MEDS: POLYETHYLENE GLYCOL 17 GM PACKET GTB SCH ×2 (09:00→20:48)
--- NOTE | 2019-06-06 11:41 | CONS ---
Assessment/Plan Assessment/Plan Hospital Course (Demo Recall) IMPRESSION: 1. Preoperative evaluation prior to endoscopy for evaluation of the patient's dysphagia and odynophagia, in a patient that has a severely depressed ejection fraction, mild infiltrates on her chest x-ray but not in gross decompensated congestive heart failure, able to lie flat with good saturations and a recent catheterization in April revealing patent stents.- Now post-op s/p endoscopy with findings of esophageal mass. Now postop s/p G tube placement 2. Cardiomyopathy with severely depressed left ventricular ejection fraction. 3. Congestive heart failure, systolic, [id number]. 4. Dysphagia and odynophagia now s/p G tube 5. Vocal cord paresis. 6. Hypothyroidism. 7. History of percutaneous transluminal coronary angioplasty and stent placement, patent via catheterization 04/2019, with most recent stents actually placed in 2016, with a type 2 non-ST elevated myocardial infarction prior to last catheterization, and a stress test 02/2019, revealing no reversible ischemia with ejection fraction of 19%. 8. [id number]. 9. Lymphoma Hodgkin's ongoing status post chemotherapy. 10. History of cerebrovascular accident. 11. Hypertension. 12. Dyslipidemia. 13. Hypothyroidism. 14. Urinary incontinence. 15. Psychiatric disorder. 16. Nonsustained ventricular tachycardia-no recurrence, neg trop x 3 17. H/O implantable cardioverter-defibrillator. Recc: -Tele -serial ecg's -Contineu toprol/entresto as tolerated and as patient will comply thru G tube at this time -continue digoxin as patient will comply -asa/plavix on hold in anticipation of repeat esophageal BX -Continue lasix diuresis -s/p d/c imdur given marginal BP Consultation Date/Type/Reason Admit Date/Time May 27, 2019 at 13:49 Initial Consult Date 05/29/19 Type of Consult Cardiology Reason for Consultation CHF Requesting Provider: PEDRO KRUSE MD Date/Time of Note DATE: 06/06/19 TIME: 11:39 Exam/Review of Systems Vital Signs Vitals Vital Signs Date Temp Pulse Resp B/P (MAP) Pulse Ox O2 O2 Flow FiO2 Time Delivery Rate 06/06/19 96 18 97 21 08:23 06/06/19 97.8 123/74 08:09 (90) 06/06/19 Room Air 04:53 Exam Exam Review of Systems: CONSTITUTIONAL: No fevers, chills. PULMONARY: No sob CARDIOVASCULAR: No chest pain/palpitations GASTROINTESTINAL: No nausea/vomiting. GENITOURINARY: No hematuria/dysuria. MUSCULOSKELETAL: No myagias/arthalgias. PSYCHIATRIC: The patient denies depression. NEUROLOGIC: No weakness Constitutional: alert Psych: no complaints Head: normocephalic ENMT: mucosa pink and moist Neck: supple, jvd (9 cm water) Respiratory: diminished breath sounds (at bases/B) Cardiovascular: regular rate and rhythm Gastrointestinal: soft, non-tender Musculoskeletal: muscle weakness (mild generalized) Extremities: edema (none) 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: other (No focal deficits) Labs Result Diagram: 06/06/19 0839 06/05/19 1519 Results 24hrs Laboratory Tests Test 06/05/19 15:19 06/06/19 08:39 Sodium Level 140 Potassium Level 4.0 Chloride Level 102 Carbon Dioxide Level 28 Anion Gap 10 Blood Urea Nitrogen 23 H Creatinine 0.69 Est Glomerular Filtrat Rate mL/min Glucose Level 107 Calcium Level 10.3 H Total Bilirubin 0.6 Direct Bilirubin 0.00 Indirect Bilirubin 0.6 Aspartate Amino Transf (AST/SGOT) 45 Alanine Aminotransferase (ALT/SGPT) 38 Alkaline Phosphatase 66 Total Protein 7.0 Albumin 4.0 Globulin 3.00 Albumin/Globulin Ratio 1.33 White Blood Count 6.8 Red Blood Count 4.72 Hemoglobin 12.6 Hematocrit 40.8 Mean Corpuscular Volume 86.4 Mean Corpuscular Hemoglobin 26.7 L Mean Corpuscular Hemoglobin Concent 30.9 L Red Cell Distribution Width 20.2 H Platelet Count 222 Mean Platelet Volume 11.5 H Immature Granulocytes % 0.400 Neutrophils % 74.8 Lymphocytes % 13.4 L Monocytes % 9.2 Eosinophils % 1.8 Basophils % 0.4 Nucleated Red Blood Cells % 0.0 Immature Granulocytes # 0.030 Neutrophils # 5.1 Lymphocytes # 0.9 Monocytes # 0.6 Eosinophils # 0.1 Basophils # 0.0 Nucleated Red Blood Cells # 0.0 Medications Medications Current Medications Aspirin (Aspirin) 81 mg DAILY PO Last administered on 05/30/19at 09:09; Admin Dose 81 MG; Start 05/27/19 at 18:30; Status Hold Clopidogrel Bisulfate (plaVIX) 75 mg DAILY PO Last administered on 05/30/19 09:07; Admin Dose 75 MG; Start 05/27/19 at 18:30; Status Hold Folic Acid (Folic Acid) 1 mg DAILY PO Last administered on 06/05/19 09:38; Admin Dose 1 MG; Start 05/27/19 at 18:30 Magnesium Oxide (Mag-Ox 400) 400 mg DAILY PO Last administered on 06/05/19 09:37; Admin Dose 400 MG; Start 05/27/19 at 18:30 Megestrol Acetate (Megace) 40 mg TID PO Last administered on 06/05/19 20:06; Admin Dose 40 MG; Start 05/27/19 at 21:00 Nystatin (Nystatin Susp) 5 ml Q4 PO Last administered on 06/05/19 17:48; Admin Dose 5 ML; Start 05/27/19 at 21:00 Sacubitril/ Valsartan (Entresto 24 Mg-26 Mg) 1 tab BID PO Last administered on 06/04/19 20:07; Admin Dose 1 TAB; Start 05/27/19 at 21:00 Ondansetron HCl (Zofran Inj) 4 mg Q4H PRN IV NAUSEA AND/OR VOMITING Last administered on 06/02/19 23:32; Admin Dose 4 MG; Start 05/27/19 at 18:30 Acetaminophen (Tylenol Tab) 500 mg Q6H PRN PO MILD PAIN(1-3)OR ELEVATED TEMP Last administered on 05/31/19 00:43; Admin Dose 500 MG; Start 05/27/19 at 18:30 Albuterol/ Ipratropium (Duoneb) 3 ml Q6H RESP THERAPY PRN HHN SHORTNESS OF B REATH Last administered on 06/04/19 19:56; Admin Dose 3 ML; Start 05/27/19 at 18:30 Lidocaine (Lidoderm) 1 patch DAILY TD Last administered on 06/05/19 09:41; Admin Dose 1 PATCH; Start 05/27/19 at 18:30 [facility] This patient meyer... PRN PRN XX WOUND CARE; Start 05/27/19 at 20:00 Digoxin (Digoxin) 0.125 mg DAILY@1300 PO Last administered on 06/05/19 13:19; Admin Dose 0.125 MG; Start 05/28/19 at 13:00 Furosemide (Lasix) 40 mg BID DIURETICS IV Last administered on 06/05/19 17:48; Admin Dose 40 MG; Start 05/29/19 at 18:00 Metoprolol Succinate (Toprol Xl) 12.5 mg DAILY PO Last administered on 06/05/19 09:38; Admin Dose 12.5 MG; Start 05/30/19 at 09:00 Levothyroxine Sodium (Synthroid) 100 mcg BEFORE BREAKFAST PO Last administered on 06/05/19 06:17; Admin Dose 100 MCG; Start 06/01/19 at 07:00 Albuterol/ Ipratropium (Duoneb) 3 ml Q8H RESP THERAPY HHN Last administered on 06/06/19 08:22; Admin Dose 3 ML; Start 06/03/19 at 00:00 Docusate Sodium (Colace Liquid Cup) 100 mg BID GTB Last administered on 06/04/19 08:49; Admin Dose 100 MG; Start 06/03/19 at 21:00 Lorazepam (Ativan) 1 mg QHS PRN PO INSOMNIA; Start 06/03/19 at 17:30 Potassium Chloride (Potassium Chloride Pwd/Soln) 8 meq DAILY GTB Last administered on 06/05/19 09:43; Admin Dose 8 MEQ; Start 06/05/19 at 09:30 Polyethylene Glycol (Miralax) 17 gm BID GTB ; Start 06/06/19 at 00:00; Stop 06/07/19 at 23:59 ARIEL HOBBS Jun 06, 2019 11:41
[2019-06-06 12:00] VITALS: BP 130/76; PULSE 120; RESP 22
[2019-06-06] MEDS: DIGOXIN 0.125 MG TAB PO SCH (12:56)
[2019-06-06 15:30] VITALS: BP 122/86; PULSE 112; RESP 22
--- NOTE | 2019-06-06 17:31 | CONS ---
Assessment/Plan Assessment/Plan Assessment/Plan (Daily) Hospital Course (Demo Recall) 73 yo female 1. Dysphagia or failure to thrive, progressive - Patient has ulcerated lesion in the proximal esophagus starting from cricopharyngeal sphincter with narrowing of the lumen and this was confirmed on the CT scan of the neck 2. Weight loss. 3. Cardiomyopathy with ejection fraction of 20% to 25%. 4. History of Hodgkin's lymphoma. 5. Depression. 6. Kyphosis. 7. Hypertension. 8. Status post left subclavian pacemaker implantation. 9. 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 Patient came down for EGD and biopsy however at that point she declined it. She was sent back from the GI lab. 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 I year refused to do the biopsy because it was high risk. Son called me stating that the mother has agreed for the biopsy so I have rescheduled her tomorrow Consultation Date/Type/Reason Admit Date/Time May 27, 2019 at 13:49 Initial Consult Date Requesting Provider: PEDRO KRUSE MD Date/Time of Note DATE: 06/06/19 TIME: 17:29 24 HR Interval Summary Constitutional: no complaints, improved Exam/Review of Systems Exam Vitals Vital Signs Date Temp Pulse Resp B/P (MAP) Pulse Ox O2 O2 Flow FiO2 Time Delivery Rate 06/06/19 101 20 99 21 17:24 06/06/19 98.0 122/86 Room Air 15:30 (98) Constitutional: alert, oriented, well developed Psych: no complaints, nl mood/affect Head: normocephalic, atraumatic Eyes: nl conjunctiva, EOMI, nl lids, nl sclera, PERRL ENMT: nl external ears & nose, nl lips & teeth, nl nasal mucosa & septum Neck: supple, non-tender Respiratory: clear to auscultation, normal air movement Cardiovascular: regular rate and rhythm, nl pulses Gastrointestinal: soft, nl liver, spleen, non-tender Musculoskeletal: nl extremities to inspection, nl gait and stance Extremities: normal pulses 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: 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4 Nucleated Red Blood Cells % 0.0 Immature Granulocytes # 0.030 Neutrophils # 5.1 Lymphocytes # 0.9 Monocytes # 0.6 Eosinophils # 0.1 Basophils # 0.0 Nucleated Red Blood Cells # 0.0 Medications Medication Current Medications Aspirin (Aspirin) 81 mg DAILY PO Last administered on 05/30/19 09:09; Admin Dose 81 MG; Start 05/27/19 at 18:30; Status Hold Clopidogrel Bisulfate (plaVIX) 75 mg DAILY PO Last administered on 05/30/19 09:07; Admin Dose 75 MG; Start 05/27/19 at 18:30; Status Hold Folic Acid (Folic Acid) 1 mg DAILY PO Last administered on 06/05/19 09:38; Admin Dose 1 MG; Start 05/27/19 at 18:30 Magnesium Oxide (Mag-Ox 400) 400 mg DAILY PO Last administered on 06/05/19 09:37; Admin Dose 400 MG; Start 05/27/19 at 18:30 Megestrol Acetate (Megace) 40 mg TID PO Last administered on 06/05/19 20:06; Admin Dose 40 MG; Start 05/27/19 at 21:00 Nystatin (Nystatin Susp) 5 ml Q4 PO Last administered on 06/05/19 17:48; Admin Dose 5 ML; Start 05/27/19 at 21:00 Sacubitril/ Valsartan (Entresto 24 Mg-26 Mg) 1 tab BID PO Last administered on 06/04/19 20:07; Admin Dose 1 TAB; Start 05/27/19 at 21:00 Ondansetron HCl (Zofran Inj) 4 mg Q4H PRN IV NAUSEA AND/OR VOMITING Last administered on 06/02/19 23:32; Admin Dose 4 MG; Start 05/27/19 at 18:30 Acetaminophen (Tylenol Tab) 500 mg Q6H PRN PO MILD PAIN(1-3)OR ELEVATED TEMP Last administered on 05/31/19 00:43; Admin Dose 500 MG; Start 05/27/19 at 18:30 Albuterol/ Ipratropium (Duoneb) 3 ml Q6H RESP THERAPY PRN HHN SHORTNESS OF BREATH Last administered on 06/04/19 19:56; Admin Dose 3 ML; Start 05/27/19 at 18:30 Lidocaine (Lidoderm) 1 patch DAILY TD Last administered on 06/05/19 09:41; Admin Dose 1 PATCH; Start 05/27/19 at 18:30 Miscellaneous Information (Pending [facility] Order For [facility]ound Care) This patient meyer... PRN PRN XX WOUND CARE; Start 05/27/19 at 20:00 Digoxin (Digoxin) 0.125 mg DAILY@1300 PO Last administered on 06/05/19 13:19; Admin Dose 0.125 MG; Start 05/28/19 at 13:00 Furosemide (Lasix) 40 mg BID DIURETICS IV Last administered on 06/05/19 17:48; Admin Dose 40 MG; Start 05/29/19 at 18:00 Metoprolol Succinate (Toprol Xl) 12.5 mg DAILY PO Last administered on 06/05/19 09:38; Admin Dose 12.5 MG; Start 05/30/19 at 09:00 Levothyroxine Sodium (Synthroid) 100 mcg BEFORE BREAKFAST PO Last administered on 06/05/19 06:17; Admin Dose 100 MCG; Start 06/01/19 at 07:00 Albuterol/ Ipratropium (Duoneb) 3 ml Q8H RESP THERAPY HHN Last administered on 06/06/19 17:23; Admin Dose 3 ML; Start 06/03/19 at 00:00 Docusate Sodium (Colace Liquid Cup) 100 mg BID GTB Last administered on 06/04/19 08:49; Admin Dose 100 MG; Start 06/03/19 at 21:00 Lorazepam (Ativan) 1 mg QHS PRN PO INSOMNIA; Start 06/03/19 at 17:30 Potassium Chloride (Potassium Chloride Pwd/Soln) 8 meq DAILY GTB Last administered on 06/05/19at 09:43; Admin Dose 8 MEQ; Start 06/05/19 at 09:30 Polyethylene Glycol (Miralax) 17 gm BID GTB ; Start 06/06/19 at 00:00; Stop 06/07/19 at 23:59 HUMZA LIAO MD Jun 06, 2019 17:31
--- NOTE | 2019-06-06 18:38 | PN ---
Date/Time of Note Date/Time of Note DATE: 06/06/19 TIME: 18:33 Assessment/Plan VTE Prophylaxis Risk score (from Ns)>0 risk: 7 SCD applied (from Ns): No SCD contraindicated: other Pharmacological prophylaxis: LMWH (hold.) Pharm contraindication: patient refusal Lines/Catheters IV Catheter Type (from [facility]): Peripheral IV Central line still needed: No Urinary Cath still in place: No Reason Cath still needed: urinary retention Assessment/Plan Assessment/Plan 1. S/P G-tube placement due to of Dysphagia.Ulceration of the upper esophagus with inability to eat. Unable to swallow most of the time. Regurgitating even saliva. On and off able to swallow. Severe decrease of voice with substernal pressure sensation severe respiratory distress with worsening of wheezing and inability to sleep. Unable to take medications due to above 2.IHD angina, new onset MS by positive troponin series still high. Discussed with Dr. Alvarez. HX of recent PTCA with one stent and 3 balloon dilatation of narrow coronary arteries(; according to the daughter). Status post stapling of mitral valve 6 months ago in [facility] with improvement of condition immediately after the procedure but still she is having frequent hospitalizations. Although it is evident that the cause is not over drinking possibly medication noncompliance. Discussed with Dr. Alvarez. 3. Dysphagia to solids and sometimes to liquids now to everything. Refuses to eat secondary to pain.. Called Dr.David Silver; [phone] for a ENT consultation. 4. Pulmonary edema by x-ray with wheezing on admission, improved after lasix. Ejection fraction was at 25-30 %. Improved. 5. History of Hodgkin lymphoma:. 6. Osteoarthritis with pain syndrome 7. Anxiety disorder. 8. Depression with grief reaction-s/p loss of . 9. Urinary incontinence. 10. Osteoporosis. 11. Kyphosis. 12. Postmenopausal syndrome. 13. Anemia with nl iron. 14. Brain atrophy on CT. 15. Left sphenoid sinusitis on CT. 16. Left ventricular hypertrophy. 17. Urinary incontinence with recurrent UTIs. Now with enterococcus species. 18.Cerebrovascular accident, with left facial drooling, left facial weakness, with slurred speech and dysphagia. Mild left upper extremity weakness. 19. Hypertension, now normotensive.Cardiomegaly on cxr 20. Status post left subclavian area pacemaker implantation about 3 months ago. 21. Status post mitral valve endocardial manipulation with stapling of the valves with good clinical results. 22. Recurrent episodes of V. tach now 8 complexes on a monitor and SVT; p laced on the monitor but cardiology consult. 23.Weight loss mainly due to of not eating well. 24.Sleeplessness 25.Poor self expression capacity and getting worse. Talks for minutes but unable to conclude talk or be precise. 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 27. Weight loss-now she is gaining weight after starting the G-tube feeding. 28. 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 Expecting also the possibility of a second malignancy to be excluded 29.Medication noncompliance. Result Diagram: 06/06/19 0839 06/05/19 1519 Results 24hrs Laboratory Tests Test 06/06/19 08:39 White Blood Count 6.8 Red Blood Count 4.72 Hemoglobin 12.6 Hematocrit 40.8 Mean Corpuscular Volume 86.4 Mean Corpuscular Hemoglobin 26.7 L Mean Corpuscular Hemoglobin Concent 30.9 L Red Cell Distribution Width 20.2 H Platelet Count 222 Mean Platelet Volume 11.5 H Immature Granulocytes % 0.400 Neutrophils % 74.8 Lymphocytes % 13.4 L Monocytes % 9.2 Eosinophils % 1.8 Basophils % 0.4 Nucleated Red Blood Cells % 0.0 Immature Granulocytes # 0.030 Neutrophils # 5.1 Lymphocytes # 0.9 Monocytes # 0.6 Eosinophils # 0.1 Basophils # 0.0 Nucleated Red Blood Cells # 0.0 Subjective 24 Hr Interval Summary Free Text/Dictation Nausea vomiting when I entered the room the patient had vomited. G-tube feeding was stopped. She continues to have a nausea. Plan to stop feeding for 2 hours check to residual and decrease the G-tube rate to 40 cc/h. We will again reevaluate residual tomorrow. Prokinetic Reglan will be added. Unfortunately the patient is refusing medications for G-tube including cardiac medications. Explained the necessity of continuation of them taking into account her low ejection fraction. The patient is having unstable mood. One time she agreed to do the esophagoscopy with the biopsy then she changed her mind. For now she agreed to do it tomorrow Constitutional: poor po; No no complaints, No improved, No chills, No diaphoresis, No disoriented, No febrile, No requiring IVF, No requiring O2, No other Eyes: redness; No no complaints, No pain, No discharge, No visual change, No other ENT: No no complaints, No bleeding, No pain, No congestion, No discharge, No dysphagia, No sore throat, No other Respiratory: cough, shortness of breath, sputum; No no complaints, No pain, No pleuritic pain, No wheezing, No other Cardiovascular: chest pain; No no complaints, No edema, No lightheadedness, No orthopenea, No palpitations, No paroxysmal nocturnal dyspnea, No other Gastrointestinal: constipation (The patient did not have a bowel movement for couple of days. We hope that the gut function will be restored after continuing the G-tube feeding.); No no complaints, No pain, No blood, No decreased appetite, No diarrhea, No flatus, No nausea, No passing stool, No vomiting, No other Genitourinary: dysuria Musculoskeletal: back pain, bone/joint pain, neck pain; No no complaints, No restricted range of motion, No swelling, No other Skin: pruritis; No no complaints, No bruising, No erythema, No laceration, No rash, No skin lesions, No other Neurologic: dizziness; No no complaints, No confusion, No focal-weakness, No headache, No syncope, No seizure, No other Exam/Review of Systems Exam Vitals Vital Signs Date Temp Pulse Resp B/P (MAP) Pulse Ox O2 O2 Flow FiO2 Time Delivery Rate 06/06/19 101 20 99 21 17:24 06/06/19 98.0 122/86 Room Air 15:30 (98) Constitutional: alert, oriented, distress, frail, other (Anxious hands. The patient has a difficulty to make a final decision. After getting some explanation and also pressure from the family side children relatives she is agreeing for procedure the after some time but she is refusing at the moment of this dictation she agreed to go to the procedure tomorrow.); No well developed, No non-verbal, No obese Psych: anxiety, depression; No no complaints, No nl mood/affect, No confusion, No suicidal, No other Head: normocephalic, atraumatic; No lacerations, No hematomas, No other Eyes: EOMI, nl lids, PERRL; No nl conjunctiva, No nl sclera, No icteric, No fundi, disc, No other ENMT: No nl external ears & nose, No nl lips & teeth, No nl nasal mucosa & septum, No mucosa pink and moist, No intubated, No tympanic membranes, No other Neck: non-tender, thyromegaly, nuchal rigidity; No supple, No jvd, No bruits, No masses, No other Respiratory: normal air movement, congested cough, diminished breath sounds; No clear to auscultation, No crackles/rales, No intercostal retraction, No labored breathing, No respirations, No tactile fremitus, No wheezing, No other Cardiovascular: No regular rate and rhythm, No nl pulses, No bruits, No diastolic murmur, No edema, No gallop, No irregular rhythm, No jugular venous distention (JVD), No murmurs/extra sounds, No rub, No systolic murmur, No S3, No S4, No other Gastrointestinal: soft, nl liver, spleen, bowel sounds Musculoskeletal: nl gait and stance, joint tenderness Extremities: No normal pulses, No calf tenderness, No cyanosis, No clubbing, No edema, No pitting pedal edema, No palpable cord, No tenderness, No other 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: ASSOCIATE DIRECTOR OF BIOSTATISTICS II-XII intact, numbness; No nl mental status, No nl speech, No nl strength, No confused, No DTR's symmetric, No focal weakness, No lethargic, No reflexes, No unresponsive, No other Results Results 24hrs Laboratory Tests Test 06/06/19 08:39 White Blood Count 6.8 Red Blood Count 4.72 Hemoglobin 12.6 Hematocrit 40.8 Mean Corpuscular Volume 86.4 Mean Corpuscular Hemoglobin 26.7 L Mean Corpuscular Hemoglobin Concent 30.9 L Red Cell Distribution Width 20.2 H Platelet Count 222 Mean Platelet Volume 11.5 H Immature Granulocytes % 0.400 Neutrophils % 74.8 Lymphocytes % 13.4 L Monocytes % 9.2 Eosinophils % 1.8 Basophils % 0.4 Nucleated Red Blood Cells % 0.0 Immature Granulocytes # 0.030 Neutrophils # 5.1 Lymphocytes # 0.9 Monocytes # 0.6 Eosinophils # 0.1 Basophils # 0.0 Nucleated Red Blood Cells # 0.0 Medications Medication Current Medications Aspirin (Aspirin) 81 mg DAILY PO Last administered on 05/30/19 09:09; Admin Dose 81 MG; Start 05/27/19 at 18:30; Status Hold Clopidogrel Bisulfate (plaVIX) 75 mg DAILY PO Last administered on 05/30/19 09:07; Admin Dose 75 MG; Start 05/27/19 at 18:30; Status Hold Folic Acid (Folic Acid) 1 mg DAILY PO Last administered on 06/05/19 09:38; Admin Dose 1 MG; Start 05/27/19 at 18:30 Magnesium Oxide (Mag-Ox 400) 400 mg DAILY PO Last administered on 06/05/19 09:37; Admin Dose 400 MG; Start 05/27/19 at 18:30 Megestrol Acetate (Megace) 40 mg TID PO Last administered on 06/05/19 20:06; Admin Dose 40 MG; Start 05/27/19 at 21:00 Nystatin (Nystatin Susp) 5 ml Q4 PO Last administered on 06/05/19 17:48; Admin Dose 5 ML; Start 05/27/19 at 21:00 Sacubitril/ Valsartan (Entresto 24 Mg-26 Mg) 1 tab BID PO Last administered on 06/04/19 20:07; Admin Dose 1 TAB; Start 05/27/19 at 21:00 Ondansetron HCl (Zofran Inj) 4 mg Q4H PRN IV NAUSEA AND/OR VOMITING Last admini stered on 06/02/19 23:32; Admin Dose 4 MG; Start 05/27/19 at 18:30 Acetaminophen (Tylenol Tab) 500 mg Q6H PRN PO MILD PAIN(1-3)OR ELEVATED TEMP Last administered on 05/31/19 00:43; Admin Dose 500 MG; Start 05/27/19 at 18:30 Albuterol/ Ipratropium (Duoneb) 3 ml Q6H RESP THERAPY PRN HHN SHORTNESS OF BREATH Last administered on 06/04/19 19:56; Admin Dose 3 ML; Start 05/27/19 at 18:30 Lidocaine (Lidoderm) 1 patch DAILY TD Last administered on 06/05/19 09:41; Admin Dose 1 PATCH; Start 05/27/19 at 18:30 [facility] This patient meyer... PRN PRN XX WOUND CARE; Start 05/27/19 at 20:00 Digoxin (Digoxin) 0.125 mg DAILY@1300 PO Last administered on 06/05/19 13:19; Admin Dose 0.125 MG; Start 05/28/19 at 13:00 Furosemide (Lasix) 40 mg BID DIURETICS IV Last administered on 06/05/19 17:48; Admin Dose 40 MG; Start 05/29/19 at 18:00 Metoprolol Succinate (Toprol Xl) 12.5 mg DAILY PO Last administered on 06/05/19 09:38; Admin Dose 12.5 MG; Start 05/30/19 at 09:00 Levothyroxine Sodium (Synthroid) 100 mcg BEFORE BREAKFAST PO Last administered on 06/05/19 06:17; Admin Dose 100 MCG; Start 06/01/19 at 07:00 Albuterol/ Ipratropium (Duoneb) 3 ml Q8H RESP THERAPY HHN Last administered on 06/06/19 17:23; Admin Dose 3 ML; Start 06/03/19 at 00:00 Docusate Sodium (Colace Liquid Cup) 100 mg BID GTB Last administered on 06/04/19 08:49; Admin Dose 100 MG; Start 06/03/19 at 21:00 Lorazepam (Ativan) 1 mg QHS PRN PO INSOMNIA; Start 06/03/19 at 17:30 Potassium Chloride (Potassium Chloride Pwd/Soln) 8 meq DAILY GTB Last administered on 06/05/19 09:43; Admin Dose 8 MEQ; Start 06/05/19 at 09:30 Polyethylene Glycol (Miralax) 17 gm BID GTB ; Start 06/06/19 at 00:00; Stop 06/07/19 at 23:59 PEDRO KRUSE MD Jun 06, 2019 18:38
--- NOTE | 2019-06-06 19:57 | CONS ---
Assessment/Plan Assessment/Plan Hospital Course (Demo Recall) Hodgkin lymphoma- s/p chemotherapy PT HAS HX PROGRESSIVE REFRACTOPY DIS POST CHEMO AMD IMMUNOTHERAPY, MOST RECENT PET/CT SHOWED SOME IMPROVEMENT DYSPHAGIA GI F-UP OFF PLAVIX AGREE TO HAVE BX TOMORROW Anemia WITH COMPONENT ACD monitor Severe respiratory distress improving. HX IHD angina, Low LVEF dropped. Findings most consistent with mild ADHF with associated type II NSTEMI HX Pulmonary edema Osteoarthritis with pain syndrome Anxiety disorder. Depression with grief reaction-s/p loss of . Urinary incontinence. Osteoporosis. Kyphosis. Postmenopausal syndrome. Brain atrophy on CT. Left sphenoid sinusitis on CT. Left ventricular hypertrophy. Urinary incontinence. Cerebrovascular accident, with left facial drooling, left facial weakness, with slurred speech and dysphagia. Mild left upper extremity weakness.mostly corrected. Hypertension, now normotensive. HX of PTCA with one sent and 3 balloon dilatation of narrow coronary arteries(; Medication noncompliance. Consultation Date/Type/Reason Admit Date/Time May 27, 2019 at 13:49 Initial Consult Date Type of Consult [facility] Requesting Provider: PEDRO KRUSE MD Date/Time of Note DATE: 06/06/19 TIME: 19:56 24 HR Interval Summary Free Text/Dictation ALL NOTED OFF PLAVIX AGREE TO HAVE BX TOMORROW Exam/Review of Systems Exam Vitals Vital Signs Date Temp Pulse Resp B/P (MAP) Pulse Ox O2 O2 Flow FiO2 Time Delivery Rate 06/06/19 101 20 99 21 17:24 06/06/19 98.0 122/86 Room Air 15:30 (98) Exam Constitutional: alert, oriented, well developed Psych: no complaints, nl mood/affect Head: normocephalic, atraumatic Eyes: nl conjunctiva, EOMI, nl lids, nl sclera, PERRL ENMT: nl external ears & nose, nl lips & teeth, nl nasal mucosa & septum Neck: supple, non-tender Respiratory: clear to auscultation, normal air movement Cardiovascular: regular rate and rhythm, nl pulses Gastrointestinal: soft, nl liver, spleen, non-tender, GT in place Musculoskeletal: nl extremities to inspection, nl gait and stance Extremities: normal pulses 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: LOSS MITIGATION SPECIALIST II-XII intact, nl mental status, nl speech, nl strength Skin: nl turgor; No rash or lesions Lymph: nl lymph nodes Results Result Diagram: 06/06/19 0839 06/05/19 1519 Results 24hrs Laboratory Tests Test 06/06/19 08:39 White Blood Count 6.8 Red Blood Count 4.72 Hemoglobin 12.6 Hematocrit 40.8 Mean Corpuscular Volume 86.4 Mean Corpuscular Hemoglobin 26.7 L Mean Corpuscular Hemoglobin Concent 30.9 L Red Cell Distribution Width 20.2 H Platelet Count 222 Mean Platelet Volume 11.5 H Immature Granulocytes % 0.400 Neutrophils % 74.8 Lymphocytes % 13.4 L Monocytes % 9.2 Eosinophils % 1.8 Basophils % 0.4 Nucleated Red Blood Cells % 0.0 Immature Granulocytes # 0.030 Neutrophils # 5.1 Lymphocytes # 0.9 Monocytes # 0.6 Eosinophils # 0.1 Basophils # 0.0 Nucleated Red Blood Cells # 0.0 Medications Medication Current Medications Aspirin (Aspirin) 81 mg DAILY PO Last administered on 05/30/19 09:09; Admin Dose 81 MG; Start 05/27/19 at 18:30; Status Hold Clopidogrel Bisulfate (plaVIX) 75 mg DAILY PO Last administered on 05/30/19 09:07; Admin Dose 75 MG; Start 05/27/19 at 18:30; Status Hold Folic Acid (Folic Acid) 1 mg DAILY PO Last administered on 06/05/19 09:38; Admin Dose 1 MG; Start 05/27/19 at 18:30 Magnesium Oxide (Mag-Ox 400) 400 mg DAILY PO Last administered on 06/05/19 09:37; Admin Dose 400 MG; Start 05/27/19 at 18:30 Megestrol Acetate (Megace) 40 mg TID PO Last administered on 06/05/19 20:06; Admin Dose 40 MG; Start 05/27/19 at 21:00 Nystatin (Nystatin Susp) 5 ml Q4 PO Last administered on 06/05/19 17:48; Admin Dose 5 ML; Start 05/27/19 at 21:00 Sacubitril/ Valsartan (Entresto 24 Mg-26 Mg) 1 tab BID PO Last administered on 06/04/19 20:07; Admin Dose 1 TAB; Start 05/27/19 at 21:00 Ondansetron HCl (Zofran Inj) 4 mg Q4H PRN IV NAUSEA AND/OR VOMITING Last administered on 06/02/19 23:32; Admin Dose 4 MG; Start 05/27/19 at 18:30 Acetaminophen (Tylenol Tab) 500 mg Q6H PRN PO MILD PAIN(1-3)OR ELEVATED TEMP Last administered on 05/31/19 00:43; Admin Dose 500 MG; Start 05/27/19 at 18:30 Albuterol/ Ipratropium (Duoneb) 3 ml Q6H RESP THERAPY PRN HHN SHORTNESS OF BREATH Last administered on 06/04/19 19:56; Admin Dose 3 ML; Start 05/27/19 at 18:30 Lidocaine (Lidoderm) 1 patch DAILY TD Last administered on 06/05/19 09:41; Admin Dose 1 PATCH; Start 05/27/19 at 18:30 Miscellaneous Information (Pending [facility] Order For Wound Care) This patient meyer... PRN PRN XX WOUND CARE; Start 05/27/19 at 20:00 Digoxin (Digoxin) 0.125 mg DAILY@1300 PO Last administered on 06/05/19 13:19; Admin Dose 0.125 MG; Start 05/28/19 at 13:00 Furosemide (Lasix) 40 mg BID DIURETICS IV Last administered on 06/05/19 17:48; Admin Dose 40 MG; Start 05/29/19 at 18:00 Metoprolol Succinate (Toprol Xl) 12.5 mg DAILY PO Last administered on 06/05/19 09:38; Admin Dose 12.5 MG; Start 05/30/19 at 09:00 Levothyroxine Sodium (Synthroid) 100 mcg BEFORE BREAKFAST PO Last administered on 06/05/19 06:17; Admin Dose 100 MCG; Start 06/01/19 at 07:00 Albuterol/ Ipratropium (Duoneb) 3 ml Q8H RESP THERAPY HHN Last administered on 06/06/19 17:23; Admin Dose 3 ML; Start 06/03/19 at 00:00 Docusate Sodium (Colace Liquid Cup) 100 mg BID GTB Last administered on 06/04/19 08:49; Admin Dose 100 MG; Start 06/03/19 at 21:00 Lorazepam (Ativan) 1 mg QHS PRN PO INSOMNIA; Start 06/03/19 at 17:30 Potassium Chloride (Potassium Chloride Pwd/Soln) 8 meq DAILY GTB Last administered on 06/05/19at 09:43; Admin Dose 8 MEQ; Start 06/05/19 at 09:30 Polyethylene Glycol (Miralax) 17 gm BID GTB ; Start 06/06/19 at 00:00; Stop 06/07/19 at 23:59 KALPANA ANGELES MD Jun 06, 2019 19:57
[2019-06-06 20:00] VITALS: BP 121/60; PULSE 102; RESP 20
[2019-06-07] VITALS (14 sets, daily range): BP systolic 102–129; BP diastolic 61–77; PULSE 78–121; RESP 14–25
[2019-06-07] MEDS: NYSTATIN SUSP 5 ML CUP PO SCH ×6 (00:27→21:47)
[2019-06-07] MEDS: ALBUTEROL/IPRATROPIUM (NEB) 3 ML AMP HHN SCH ×3 (00:52→15:41)
[2019-06-07] MEDS: FUROSEMIDE 40 MG INJ IV SCH ×2 (05:22→18:00)
[2019-06-07] MEDS: LEVOTHYROXINE 100 MCG TAB PO SCH (06:01)
[2019-06-07] MEDS: LIDOCAINE 5% PATCH TD SCH (08:28)
[2019-06-07] MEDS: POLYETHYLENE GLYCOL 17 GM PACKET GTB SCH ×2 (08:28→20:24)
[2019-06-07] MEDS: FOLIC ACID 1 MG TAB PO SCH (08:28)
[2019-06-07] MEDS: MAGNESIUM OXIDE 400 MG TAB PO SCH (08:28)
[2019-06-07] MEDS: METOPROLOL (XL) 25 MG TAB PO SCH (08:28)
[2019-06-07] MEDS: MEGESTROL 40 MG TAB PO SCH ×3 (08:28→21:00)
[2019-06-07] MEDS: POTASSIUM CHLORIDE 20 MEQ POWDER FOR ORAL SOLN GTB SCH (08:28)
[2019-06-07] MEDS: DOCUSATE SODIUM 10 MG/ML (10ML CUP) GTB SCH ×2 (08:28→20:23)
[2019-06-07] MEDS: SACUBITRIL/VALSARTAN (24mg-26mg) TABLET PO SCH ×2 (08:28→21:00)
--- NOTE | 2019-06-07 08:47 | PN ---
Date/Time of Note Date/Time of Note DATE: 06/07/19 TIME: 08:40 Assessment/Plan VTE Prophylaxis Risk score (from Ns)>0 risk: 6 SCD applied (from Ns): No SCD contraindicated: other Pharmacological prophylaxis: LMWH (hold.) Lines/Catheters IV Catheter Type (from [facility], [place]): [place] [employer] line still needed: No Urinary Cath still in place: No Reason Cath still needed: urinary retention Assessment/Plan Assessment/Plan 1. S/P G-tube placement due to of Dysphagia.Ulceration of the upper esophagus with inability to eat. Unable to swallow most of the time. Regurgitating even saliva. On and off able to swallow. Severe decrease of voice with substernal pressure sensation severe respiratory distress with worsen ing of wheezing and inability to sleep. Unable to take medications due to above. Continue titration of the G-tube feeding rate. 2.IHD angina, new onset NC by positive troponin series still high. Discussed with Dr. Alvarez. HX of recent PTCA with one stent and 3 balloon dilatation of narrow coronary arteries(; according to the daughter). Status post stapling of mitral valve 6 months ago in [facility] with improvement of condition immediately after the procedure but still she is having frequent hospitalizations. Although it is evident that the cause is not over drinking possibly medication noncompliance. Discussed with Dr. Alvarez. 3. Dysphagia to solids and sometimes to liquids now to everything. Refuses to eat secondary to pain.. Called Dr.David Sliver; [phone] for a ENT consultation. 4. Pulmonary edema by x-ray with wheezing on admission, improved after lasix. Ejection fraction was at 25-30 %. Improved. 5. History of Hodgkin lymphoma:. 6. Osteoarthritis with pain syndrome 7. Anxiety disorder. 8. Depression with grief reaction-s/p loss of . 9. Urinary incontinence. 10. Osteoporosis. 11. Kyphosis. 12. Postmenopausal syndrome. 13. Anemia with nl iron. 14. Brain atrophy on CT. 15. Left sphenoid sinusitis on CT. 16. Left ventricular hypertrophy. 17. Urinary incontinence with recurrent UTIs. Now with enterococcus species. 18.Cerebrovascular accident, with left facial drooling, left facial weakness, with slurred speech and dysphagia. Mild left upper extremity weakness. 19. Hypertension, now normotensive.Cardiomegaly on cxr 20. Status post left subclavian area pacemaker implantation about 3 months ago. 21. Status post mitral valve endocardial manipulation with stapling of the valves with good clinical results. 22. Recurrent episodes of V. tach now 8 complexes on a monitor and SVT; placed on the monitor but cardiology consult. 23.Weight loss mainly due to of not eating well. 24.Sleeplessness 25.Poor self expression capacity and getting worse. Talks for minutes but unable to conclude talk or be precise. 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 27. Weight loss-now she is gaining weight after starting the G-tube feeding. 28. 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 Expecting also the possibility of a second malignancy to be excluded 29.Medication noncompliance. Result Diagram: 06/06/19 0839 06/05/19 1519 Subjective 24 Hr Interval Summary Free Text/Dictation Constant cough. Expectoration of large amount of saliva. The patient started to use a suction device. It is helping her cough less. The patient was explained that regurgitation yesterday was mainly due to of fluid staying in the stomach longer than expected. That we are going to titrate that adjusted dose of a G-tube feeding. Constitutional: poor po; No no complaints, No improved, No chills, No diaphoresis, No disoriented, No febrile, No requiring IVF, No requiring O2, No other Eyes: No no complaints, No pain, No discharge, No redness, No visual change, No other ENT: dysphagia; No no complaints, No bleeding, No pain, No congestion, No discharge, No sore throat, No other Respiratory: cough, pleuritic pain, shortness of breath; No no complaints, No pain, No sputum, No wheezing, No other Cardiovascular: chest pain, orthopenea, palpitations; No no complaints, No edema, No lightheadedness, No paroxysmal nocturnal dyspnea, No other Gastrointestinal: No no complaints, No pain, No blood, No constipation, No decreased appetite, No diarrhea, No flatus, No nausea, No passing stool, No vomiting, No other Genitourinary: dysuria, flank pain; No no complaints, No bleeding, No discharge, No hematuria, No other Musculoskeletal: back pain, bone/joint pain; No no complaints, No neck pain, No restricted range of motion, No swelling, No other Skin: pruritis; No no complaints, No bruising, No erythema, No laceration, No rash, No skin lesions, No other Neurologic: No no complaints, No confusion, No dizziness, No focal-weakness, No headache, No syncope, No seizure, No other Endocrine: dry skin; No no complaints, No polyuria, No polydypsia, No temp intolerance, No other Psychological: anxiety; No no complaints, No nl mood/affect, No confusion, No depression, No suicidal, No other Immunologic: No no complaints, No immunodeficiency, No pruritis, No rhinitis, No urticaria, No other Exam/Review of Systems Exam Vitals Vital Signs Date Temp Pulse Resp B/P (MAP) Pulse Ox O2 O2 Flow FiO2 Time Delivery Rate 06/07/19 98.3 91 16 110/65 98 Room Air 07:22 (80) 06/07/19 21 00:53 Intake and Output 06/06/19 06/06/19 06/07/19 1515:00 23:00 07:00 IntakeIntake Total 345 ml BalanceBalance 345 ml Constitutional: alert, oriented (Not following days.), well developed, distress, frail; No non-verbal, No obese, No other Psych: anxiety; No no complaints, No nl mood/affect, No confusion, No depression, No suicidal, No other Head: normocephalic, atraumatic Eyes: EOMI, nl lids, PERRL; No nl conjunctiva, No nl sclera, No icteric, No fundi, disc, No other ENMT: No nl external ears & nose, No nl lips & teeth, No nl nasal mucosa & septum, No mucosa pink and moist, No intubated, No tympanic membranes, No other Neck: nuchal rigidity; No supple, No non-tender, No jvd, No bruits, No masses, No thyromegaly, No other Respiratory: normal air movement; No clear to auscultation, No congested cough, No crackles/rales, No diminished breath sounds, No intercostal retraction, No labored breathing, No respirations, No tactile fremitus, No wheezing, No other Cardiovascular: regular rate and rhythm, systolic murmur; No nl pulses, No bruits, No diastolic murmur, No edema, No gallop, No irregular rhythm, No jugular venous distention (JVD), No murmurs/extra sounds, No rub, No S3, No S4, No other Gastrointestinal: soft, nl liver, spleen; No non-tender, No ascites, No bowel sounds, No distended, No firm, No hepatom egaly, No mass, No rebound or guarding, No splenomegaly, No surgical scars, No tender, No other Musculoskeletal: nl gait and stance (Unstable pulmonary muscles needs support to get up with support to walk.), joint tenderness, muscle tone, muscle weakness; No nl extremities to inspection, No range of motion, No spine non-tender, No swelling, No other Extremities: normal pulses; No calf tenderness, No cyanosis, No clubbing, No edema, No pitting pedal edema, No palpable cord, No tenderness, No other 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: [employer] II-XII intact; No nl mental status, No nl speech, No nl strength, No confused, No DTR's symmetric, No focal weakness, No lethargic, No numbness, No reflexes, No unresponsive, No other Skin: nl turgor; No rash or lesions, No diaphoresis, No ecchymosis, No laceration, No puncture, No other Lymph: No nl lymph nodes, No enlarged, No nontender, No other Medications Medication Current Medications Aspirin (Aspirin) 81 mg DAILY PO Last administered on 05/30/19 09:09; Admin Dose 81 MG; Start 05/27/19 at 18:30; Status Hold Clopidogrel Bisulfate (plaVIX) 75 mg DAILY PO Last administered on 05/30/19 09:07; Admin Dose 75 MG; Start 05/27/19 at 18:30; Status Hold Folic Acid (Folic Acid) 1 mg DAILY PO Last administered on 06/05/19 09:38; Admin Dose 1 MG; Start 05/27/19 at 18:30 Magnesium Oxide (Mag-Ox 400) 400 mg DAILY PO Last administered on 06/05/19 09:37; Admin Dose 400 MG; Start 05/27/19 at 18:30 Megestrol Acetate (Megace) 40 mg TID PO Last administered on 06/06/19 20:28; Admin Dose 40 MG; Start 05/27/19 at 21:00 Nystatin (Nystatin Susp) 5 ml Q4 PO Last administered on 06/05/19 17:48; Admin Dose 5 ML; Start 05/27/19 at 21:00 Sacubitril/ Valsartan (Entresto 24 Mg-26 Mg) 1 tab BID PO Last administered on 06/06/19 20:27; Admin Dose 1 TAB; Start 05/27/19 at 21:00 Ondansetron HCl (Zofran Inj) 4 mg Q4H PRN IV NAUSEA AND/OR VOMITING Last administered on 06/02/19 23:32; Admin Dose 4 MG; Start 05/27/19 at 18:30 Acetaminophen (Tylenol Tab) 500 mg Q6H PRN PO MILD PAIN(1-3)OR ELEVATED TEMP Last administered on 05/31/19 00:43; Admin Dose 500 MG; Start 05/27/19 at 18:30 Albuterol/ Ipratropium (Duoneb) 3 ml Q6H RESP THERAPY PRN HHN SHORTNESS OF BREATH Last administered on 06/04/19 19:56; Admin Dose 3 ML; Start 05/27/19 at 18:30 Lidocaine (Lidoderm) 1 patch DAILY TD Last administered on 06/05/19 09:41; Admin Dose 1 PATCH; Start 05/27/19 at 18:30 Miscellaneous Information (Pending [facility] Order For Wound Care) This patient meyer... PRN PRN XX WOUND CARE; Start 05/27/19 at 20:00 Digoxin (Digoxin) 0.125 mg DAILY@1300 PO Last administered on 06/05/19 13:19; Admin Dose 0.125 MG; Start 05/28/19 at 13:00 Furosemide (Lasix) 40 mg BID DIURETICS IV Last administered on 06/07/19 05 :22; Admin Dose 40 MG; Start 05/29/19 at 18:00 Metoprolol Succinate (Toprol Xl) 12.5 mg DAILY PO Last administered on 06/05/19 09:38; Admin Dose 12.5 MG; Start 05/30/19 at 09:00 Levothyroxine Sodium (Synthroid) 100 mcg BEFORE BREAKFAST PO Last administered on 06/05/19 06:17; Admin Dose 100 MCG; Start 06/01/19 at 07:00 Albuterol/ Ipratropium (Duoneb) 3 ml Q8H RESP THERAPY HHN Last administered on 7/26/19at 00:52; Admin Dose 3 ML; Start 06/03/19 at 00:00 Docusate Sodium (Colace Liquid Cup) 100 mg BID GTB Last administered on 06/04/19at 08:49; Admin Dose 100 MG; Start 06/03/19 at 21:00 Lorazepam (Ativan) 1 mg QHS PRN PO INSOMNIA; Start 06/03/19 at 17:30 Potassium Chloride (Potassium Chloride Pwd/Soln) 8 meq DAILY GTB Last administered on 06/05/19at 09:43; Admin Dose 8 MEQ; Start 06/05/19 at 09:30 Polyethylene Glycol (Miralax) 17 gm BID GTB ; Start 06/06/19 at 00:00; Stop 06/07/19 at 23:59 PEDRO KRUSE MD Jun 07, 2019 08:47
--- NOTE | 2019-06-07 12:19 | CONS ---
Assessment/Plan Assessment/Plan Hospital Course (Demo Recall) IMPRESSION: 1. Preoperative evaluation prior to endoscopy for evaluation of the patient's dysphagia and odynophagia, in a patient that has a severely depressed ejection fraction, mild infiltrates on her chest x-ray but not in gross decompensated congestive heart failure, able to lie flat with good saturations and a recent catheterization in April revealing patent stents.- Now post-op s/p endoscopy with findings of esophageal mass. Now postop s/p G tube placement 2. Cardiomyopathy with severely depressed left ventricular ejection fraction. 3. Congestive heart failure, systolic, [id number]. 4. Dysphagia and odynophagia now s/p G tube 5. Vocal cord paresis. 6. Hypothyroidism. 7. History of percutaneous transluminal coronary angioplasty and stent placement, patent via catheterization 04/2019, with most recent stents actually placed in 2016, with a type 2 non-ST elevated myocardial infarction prior to last catheterization, and a stress test 02/2019, revealing no reversible ischemia with ejection fraction of 19%. 8. [id number]. 9. Lymphoma Hodgkin's ongoing status post chemotherapy. 10. History of cerebrovascular accident. 11. Hypertension. 12. Dyslipidemia. 13. Hypothyroidism. 14. Urinary incontinence. 15. Psychiatric disorder. 16. Nonsustained ventricular tachycardia-no recurrence, neg trop x 3 17. H/O implantable cardioverter-defibrillator. Recc: -Tele -serial ecg's -Contineu toprol/entresto as tolerated and as patient will comply thru G tube at this time -continue digoxin as patient will comply -asa/plavix on hold in anticipation of repeat esophageal BX -Continue lasix diuresis -s/p d/c imdur given marginal BP Consultation Date/Type/Reason Admit Date/Time May 27, 2019 at 13:49 Initial Consult Date 05/29/19 Type of Consult Cardiology Reason for Consultation CHF Requesting Provider: PEDRO KRUSE MD Date/Time of Note DATE: 06/07/19 TIME: 12:17 Exam/Review of Systems Vital Signs Vitals Vital Signs Date Temp Pulse Resp B/P (MAP) Pulse Ox O2 O2 Flow FiO2 Time Delivery Rate 06/07/19 98.2 78 22 105/62 97 Room Air 11:22 (76) 06/07/19 21 09:00 Intake and Output 706/06/19 06/07/19 1515:00 23:00 07:00 IntakeIntake Total 345 ml BalanceBalance 345 ml Exam Exam Review of Systems: CONSTITUTIONAL: No fevers, chills. PULMONARY: No sob CARDIOVASCULAR: No chest pain/palpitations GASTROINTESTINAL: No nausea/vomiting. GENITOURINARY: No hematuria/dysuria. MUSCULOSKELETAL: No myagias/arthalgias. PSYCHIATRIC: The patient denies depression. NEUROLOGIC: No weakness Constitutional: alert Psych: no complaints ENMT: mucosa pink and moist Neck: supple, jvd (9 cm water) Respiratory: diminished breath sounds Cardiovascular: regular rate and rhythm Gastrointestinal: soft, non-tender Musculoskeletal: muscle tone (normal) Extremities: edema (none) 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: other (No focal deficits) Labs Result Diagram: 06/06/19 0839 06/05/19 1519 Medications Medications Current Medications Aspirin (Aspirin) 81 mg DAILY PO Last administered on 05/30/19 09:09; Admin Dose 81 MG; Start 05/27/19 at 18:30; Status Hold Clopidogrel Bisulfate (plaVIX) 75 mg DAILY PO Last administered on 05/30/19 09:07; Admin Dose 75 MG; Start 05/27/19 at 18:30; Status Hold Folic Acid (Folic Acid) 1 mg DAILY PO Last administered on 06/05/19 09:38; Admin Dose 1 MG; Start 05/27/19 at 18:30 Magnesium Oxide (Mag-Ox 400) 400 mg DAILY PO Last administered on 06/05/19 09 :37; Admin Dose 400 MG; Start 05/27/19 at 18:30 Megestrol Acetate (Megace) 40 mg TID PO Last administered on 06/06/19 20:28; Admin Dose 40 MG; Start 05/27/19 at 21:00 Nystatin (Nystatin Susp) 5 ml Q4 PO Last administered on 06/05/19 17:48; Admin Dose 5 ML; Start 05/27/19 at 21:00 Sacubitril/ Valsartan (Entresto 24 Mg-26 Mg) 1 tab BID PO Last administered on 06/06/19 20:27; Admin Dose 1 TAB; Start 05/27/19 at 21:00 Ondansetron HCl (Zofran Inj) 4 mg Q4H PRN IV NAUSEA AND/OR VOMITING Last ad ministered on 06/02/19 23:32; Admin Dose 4 MG; Start 05/27/19 at 18:30 Acetaminophen (Tylenol Tab) 500 mg Q6H PRN PO MILD PAIN(1-3)OR ELEVATED TEMP Last administered on 05/31/19 00:43; Admin Dose 500 MG; Start 05/27/19 at 18:30 Albuterol/ Ipratropium (Duoneb) 3 ml Q6H RESP THERAPY PRN HHN SHORTNESS OF BREATH Last administered on 06/04/19 19:56; Admin Dose 3 ML; Start 05/27/19 at 18:30 Lidocaine (Lidoderm) 1 patch DAILY TD Last administered on 06/05/19 09:41; Admin Dose 1 PATCH; Start 05/27/19 at 18:30 Miscellaneous Information (Pending [facility] Order For Wound Care) This patient meyer... PRN PRN XX WOUND CARE; Start 05/27/19 at 20:00 Digoxin (Digoxin) 0.125 mg DAILY@1300 PO Last administered on 06/05/19 13:19; Admin Dose 0.125 MG; Start 05/28/19 at 13:00 Furosemide (Lasix) 40 mg BID DIURETICS IV Last administered on 06/07/19 05:22; Admin Dose 40 MG; Start 05/29/19 at 18:00 Metoprolol Succinate (Toprol Xl) 12.5 mg DAILY PO Last administered on 06/05/19 09:38; Admin Dose 12.5 MG; Start 05/30/19 at 09:00 Levothyroxine Sodium (Synthroid) 100 mcg BEFORE BREAKFAST PO Last administered on 06/05/19 06:17; Admin Dose 100 MCG; Start 06/01/19 at 07:00 Albuterol/ Ipratropium (Duoneb) 3 ml Q8H RESP THERAPY HHN Last administered on 06/07/19 08:30; Admin Dose 3 ML; Start 06/03/19 at 00:00 Docusate Sodium (Colace Liquid Cup) 100 mg BID GTB Last administered on 06/04/19 08:49; Admin Dose 100 MG; Start 06/03/19 at 21:00 Lorazepam (Ativan) 1 mg QHS PRN PO INSOMNIA; Start 06/03/19 at 17:30 Potassium Chloride (Potassium Chloride Pwd/Soln) 8 meq DAILY GTB Last administered on 06/05/19at 09:43; Admin Dose 8 MEQ; Start 06/05/19 at 09:30 Polyethylene Glycol (Miralax) 17 gm BID GTB ; Start 06/06/19 at 00:00; Stop 06/07/19 at 23:59 ARIEL HOBBS Jun 07, 2019 12:19
--- NOTE | 2019-06-07 12:20 | PREAC ---
Date/Time of Note Date/Time of Note DATE: 06/07/19 TIME: 12:18 Anesthesia Eval and Record Evaluation Time Pre-Procedure Interview DATE: 06/07/19 TIME: 12:18 Age 73 Sex female NPO: 8 hrs Preoperative diagnosis esophageal ulcer Planned procedure EGD Past Medical History Past Medical History: Includes (Hodgkin's lymphoma) Cardio: HTN, Dyslipidemia, DC, CAD, PTCA/Stent, Arrythmia (nonsustained Vtach), PPM/AICD, CHF Endo: Diabetes, Hypothyroid Neuro: CVA (left facial drooping and weakness, with slurred speech and dysphagia. Mild left upper extremity weakness.) Psych: Depression, Anxiety Surgery & Anesthesia Issues No known issue Meds Anticoagulation: No Beta Jolly within 24 hr: No Reason Beta Jolly not given: Bradycarida, Hypotension Active Scripts Fenofibrate* (Fenofibrate*) 200 Mg Cap, 200 MG PO DAILY for 30 Days, #30 CAP Prov:PEDRO KRUSE MD 09/16/18 Digoxin* (Lanoxin*) 0.125 Mg Tablet, 0.125 MG PO DAILY for 30 Days, #30 TAB Prov:PEDRO KRUSE MD 09/16/18 Potassium Chloride* (Potassium Chloride*) 8 Meq Capsule.er, 8 MEQ PO DAILY for 30 Days, #30 CAP Prov:PEDRO KRUSE MD 09/16/18 Isosorbide Mononitrate* (Isosorbide Mononitrate*) 30 Mg Tab.er.24h, 30 MG PO DAILY for 30 Days, #30 TAB Prov:PEDRO KRUSE MD 09/16/18 Clopidogrel Bisulfate (Clopidogrel) 75 Mg Tablet, 75 MG PO DAILY, #30 TAB Prov:PEDRO KRUSE MD 09/16/18 Folic Acid* (Folic Acid*) 1 Mg Tablet, 1 MG PO DAILY for 30 Days, #30 TAB Prov:PEDRO KRUSE MD 09/16/18 Aspirin* (Aspirin* Chew) 81 Mg Tab.chew, 81 MG PO DAILY for 30 Days, #30 TAB.CHEW Prov:PEDRO KRUSE MD 09/16/18 Reported Medications Nystatin (Nystatin) 100,000 Unit/1 Ml Oral.susp, 5 ML PO Q4, #60 ML 05/27/19 Acetaminophen with Codeine (Acetaminop-Codeine 120-12 mg/5) 118 Ml Solution, 5 ML PO Q4 for PAIN 05/27/19 Megestrol Acetate* (Megestrol Acetate*) 40 Mg Tablet, 40 MG PO TID for APPETITE, TAB 05/27/19 Furosemide* (Furosemide*) 40 Mg Tablet, 40 MG PO BID, TAB 05/27/19 Levothyroxine Sodium* (Levothyroxine Sodium*) 125 Mcg Tablet, 125 MCG PO BEFORE BREAKFAST, #30 TAB 02/11/19 Esomeprazole Mag Trihydrate (Nexium) 40 Mg Capsule.dr, 40 MG PO DAILY, #30 CAP 02/11/19 Magnesium Oxide* (Magnesium Oxide*) 400 Mg Tablet, 400 MG PO DAILY, TAB 02/11/19 Current Medications Aspirin (Aspirin) 81 mg DAILY PO Last administered on 05/30/19 09:09; Admin Dose 81 MG; Start 05/27/19 at 18:30; Status Hold Clopidogrel Bisulfate (plaVIX) 75 mg DAILY PO Last administered on 05/30/19 09:07; Admin Dose 75 MG; Start 05/27/19 at 18:30; Status Hold Folic Acid (Folic Acid) 1 mg DAILY PO Last administered on 06/05/19 09:38; Admin Dose 1 MG; Start 05/27/19 at 18:30 Magnesium Oxide (Mag-Ox 400) 400 mg DAILY PO Last administered on 06/05/19 09:37; Admin Dose 400 MG; Start 05/27/19 at 18:30 Megestrol Acetate (Megace) 40 mg TID PO Last administered on 06/06/19 20:28; Admin Dose 40 MG; Start 05/27/19 at 21:00 Nystatin (Nystatin Susp) 5 ml Q4 PO Last administered on 06/05/19 17:48; Admin Dose 5 ML; Start 05/27/19 at 21:00 Sacubitril/ Valsartan (Entresto 24 Mg-26 Mg) 1 tab BID PO Last administered on 06/06/19 20:27; Admin Dose 1 TAB; Start 05/27/19 at 21:00 Ondansetron HCl (Zofran Inj) 4 mg Q4H PRN IV NAUSEA AND/OR VOMITING Last administered on 06/02/19 23:32; Admin Dose 4 MG; Start 05/27/19 at 18:30 Acetaminophen (Tylenol Tab) 500 mg Q6H PRN PO MILD PAIN(1-3)OR ELEVATED TEMP Last administered on 05/31/19 00:43; Admin Dose 500 MG; Start 05/27/19 at 18:30 Albuterol/ Ipratropium (Duoneb) 3 ml Q6H RESP THERAPY PRN HHN SHORTNESS OF BREATH Last administered on 06/04/19 19:56; Admin Dose 3 ML; Start 05/27/19 at 18:30 Lidocaine (Lidoderm) 1 patch DAILY TD Last administered on 06/05/19 09:41; Admin Dose 1 PATCH; Start 05/27/19 at 18:30 Miscellaneous Information (Pending [facility] Order For Wound Care) This patient meyer... PRN PRN XX WOUND CARE; Start 05/27/19 at 20:00 Digoxin (Digoxin) 0.125 mg DAILY@1300 PO Last administered on 06/05/19 13:19; Admin Dose 0.125 MG; Start 05/28/19 at 13:00 Furosemide (Lasix) 40 mg BID DIURETICS IV Last administered on 06/07/19 05:22; Admin Dose 40 MG; Start 05/29/19 at 18:00 Metoprolol Succinate (Toprol Xl) 12.5 mg DAILY PO Last administered on 06/05/19 09:38; Admin Dose 12.5 MG; Start 05/30/19 at 09:00 Levothyroxine Sodium (Synthroid) 100 mcg BEFORE BREAKFAST PO Last administered on 06/05/19 06:17; Admin Dose 100 MCG; Start 06/01/19 at 07:00 Albuterol/ Ipratropium (Duoneb) 3 ml Q8H RESP THERAPY HHN Last administered on 06/07/19 08:30; Admin Dose 3 ML; Start 06/03/19 at 00:00 Docusate Sodium (Colace Liquid Cup) 100 mg BID GTB Last administered on 06/04/19 08:49; Admin Dose 100 MG; Start 06/03/19 at 21:00 Lorazepam (Ativan) 1 mg QHS PRN PO INSOMNIA; Start 06/03/19 at 17:30 Potassium Chloride (Potassium Chloride Pwd/Soln) 8 meq DAILY GTB Last administered on 06/05/19at 09:43; Admin Dose 8 MEQ; Start 06/05/19 at 09:30 Polyethylene Glycol (Miralax) 17 gm BID GTB ; Start 06/06/19 at 00:00; Stop 06/07/19 at 23:59 Meds reviewed: Yes Allergies Coded Allergies: vancomycin (Verified Allergy, Mild, REDNESS AND ITCHING, 03/20/18) Allergies Reviewed: Yes Labs/Studies Labs Reviewed: Reviewed by anesthesiologist Result Diagram: 06/06/19 0839 06/05/19 1519 test: N/A Studies: ECG, CXR, 2D Echo Pre-procedure Exam Last vitals Vital Signs Date Temp Pulse Resp B/P (MAP) Pulse Ox O2 O2 Flow FiO2 Time Delivery Rate 06/07/19 98.2 78 22 105/62 97 Room Air 11:22 (76) 06/07/19 21 09:00 Airway: Adequate mouth opening, Adequate thyromental dist Mallampati: Mallampati II Teeth: Normal Lung: Normal Heart: Normal ASA Physical Status ASA physical status: 4 Emergency: None Planned Anesthetic General/MAC: Mask Planned Pain Management Parenteral pain med Pre-operative Attestations Prior to commencing anesthesia and surgery, the patient was re-evaluated, there was verification of: *The patient's identity *The results of appropriate recent lab work and preoperative vital signs *The above evaluation not changing prior to induction *Anesthetic plan, risk benefits, alternative and complications discussed with patient/family; questions answered; patient/family understands, accepts and wishes to proceed. EDWIN CALHOUN MD Jun 07, 2019 12:20
[2019-06-07] MEDS ORDERED: ONDANSETRON 4 MG INJ IV PRN (12:30)
[2019-06-07] MEDS ORDERED: LIDOCAINE 2% (SDV) 5 ML INJ ONE (12:30)
[2019-06-07] MEDS ORDERED: ETOMIDATE 20 MG INJ ONE (12:32)
[2019-06-07] MEDS: DIGOXIN 0.125 MG TAB PO SCH (13:00)
[2019-06-07] MEDS ORDERED: FENTAnyl 50 MCG/ML VIAL ONE (13:03)
[2019-06-07] MEDS ORDERED: PROPOFOL 20 ML ONE (13:17)
--- NOTE | 2019-06-07 13:31 | PAC ---
Date/Time of Note Date/Time of Note DATE: 06/07/19 TIME: 13:30 Post-Anesthesia Notes Post-Anesthesia Note Last documented vital signs Vital Signs Date Temp Pulse Resp B/P (MAP) Pulse Ox O2 O2 Flow FiO2 Time Delivery Rate 06/07/19 97.3 105 14 119/69 98 Room Air 12:39 (86) 06/07/19 21 09:00 Activity: WNL Respiratory function: WNL Cardiovascular function: WNL Mental status: Baseline Pain reasonably controlled: Yes Hydration appropriate: Yes Nausea/Vomiting absent: Yes Comments BP: 109/68 HR: 99 RR: 15 T: 98 SaO2: 99% EDWIN CALHOUN MD Jun 07, 2019 13:31
--- NOTE | 2019-06-07 22:42 | CONS ---
Assessment/Plan Assessment/Plan Hospital Course (Demo Recall) Hodgkin lymphoma- s/p chemotherapy PT HAS HX PROGRESSIVE REFRACTOPY DIS POST CHEMO AMD IMMUNOTHERAPY, MOST RECENT PET/CT SHOWED SOME IMPROVEMENT DYSPHAGIA GI F-UP OFF PLAVIX POST EGD/BX, AWAIT PATH D/W DAUGHTER KONG Anemia WITH COMPONENT ACD monitor Severe respiratory distress improving. HX IHD angina, Low LVEF dropped. Findings most consistent with mild ADHF with associated type II NSTEMI HX Pulmonary edema Osteoarthritis with pain syndrome Anxiety disorder. Depression with grief reaction-s/p loss of . Urinary incontinence. Osteoporosis. Kyphosis. Postmenopausal syndrome. Brain atrophy on CT. Left sphenoid sinusitis on CT. Left ventricular hypertrophy. Urinary incontinence. Cerebrovascular accident, with left facial drooling, left facial weakness, with slurred speech and dysphagia. Mild left upper extremity weakness.mostly corrected. Hypertension, now normotensive. HX of PTCA with one sent and 3 balloon dilatation of narrow coronary arteries(; Medication noncompliance. Consultation Date/Type/Reason Admit Date/Time May 27, 2019 at 13:49 Initial Consult Date Type of Consult [facility] Requesting Provider: PEDRO KRUSE MD Date/Time of Note DATE: 06/07/19 TIME: 22:40 24 HR Interval Summary Free Text/Dictation NAD D/W DAUGHTER KONG POST EGD/BX Exam/Review of Systems Exam Vitals Vital Signs Date Temp Pulse Resp B/P (MAP) Pulse Ox O2 O2 Flow FiO2 Time Delivery Rate 06/07/19 97.7 121 18 119/77 98 Room Air 20:39 (91) 06/07/19 21 18:36 Intake and Output 06/06/19 06/06/19 06/07/19 1515:00 23:00 07:00 IntakeIntake Total 345 ml BalanceBalance 345 ml Exam Constitutional: alert, oriented, well developed Psych: no complaints, nl mood/affect Head: normocephalic, atraumatic Eyes: nl conjunctiva, EOMI, nl lids, nl sclera, PERRL ENMT: nl external ears & nose, nl lips & teeth, nl nasal mucosa & septum Neck: supple, non-tender Respiratory: clear to auscultation, normal air movement Cardiovascular: regular rate and rhythm, nl pulses Gastrointestinal: soft, nl liver, spleen, non-tender, GT in place Musculoskeletal: nl extremities to inspection, nl gait and stance Extremities: normal pulses 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: 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, nl mental status, nl speech, nl strength Skin: nl turgor; No rash or lesions Lymph: nl lymph nodes Results Result Diagram: 06/06/19 0839 06/05/19 1519 Medications Medication Current Medications Aspirin (Aspirin) 81 mg DAILY PO Last administered on 05/30/19 09:09; Admin Dose 81 MG; Start 05/27/19 at 18:30; Status Hold Clopidogrel Bisulfate (plaVIX) 75 mg DAILY PO Last administered on 05/30/19 09:07; Admin Dose 75 MG; Start 05/27/19 at 18:30; Status Hold Folic Acid (Folic Acid) 1 mg DAILY PO Last administered on 06/05/19 09:38; Admin Dose 1 MG; Start 05/27/19 at 18:30 Magnesium Oxide (Mag-Ox 400) 400 mg DAILY PO Last administered on 06/05/19 09:37; Admin Dose 400 MG; Start 05/27/19 at 18:30 Megestrol Acetate (Megace) 40 mg TID PO Last administered on 06/06/19 20:28; Admin Dose 40 MG; Start 05/27/19 at 21:00 Nystatin (Nystatin Susp) 5 ml Q4 PO Last administered on 06/07/19 21:47; Admin Dose 5 ML; Start 05/27/19 at 21:00 Sacubitril/ Valsartan (Entresto 24 Mg-26 Mg) 1 tab BID PO Last administered on 06/06/19 20:27; Admin Dose 1 TAB; Start 05/27/19 at 21:00 Ondansetron HCl (Zofran Inj) 4 mg Q4H PRN IV NAUSEA AND/OR VOMITING Last administered on 06/02/19 23:32; Admin Dose 4 MG; Start 05/27/19 at 18:30 Acetaminophen (Tylenol Tab) 500 mg Q6H PRN PO MILD PAIN(1-3)OR ELEVATED TEMP Last administered on 05/31/19 00:43; Admin Dose 500 MG; Start 05/27/19 at 18:30 Albuterol/ Ipratropium (Duoneb) 3 ml Q6H RESP THERAPY PRN HHN SHORTNESS OF BREATH Last administered on 06/04/19 19:56; Admin Dose 3 ML; Start 05/27/19 at 18:30 Lidocaine (Lidoderm) 1 patch DAILY TD Last administered on 06/05/19 09:41; Admin Dose 1 PATCH; Start 05/27/19 at 18:30 Miscellaneous Information (Pending [facility] Order For Wound Care) This patient meyer... PRN PRN XX WOUND CARE; Start 05/27/19 at 20:00 Digoxin (Digoxin) 0.125 mg DAILY@1300 PO Last administered on 06/05/19 13:19; Admin Dose 0.125 MG; Start 05/28/19 at 13:00 Furosemide (Lasix) 40 mg BID DIURETICS IV Last administered on 06/07/19 05:22; Admin Dose 40 MG; Start 05/29/19 at 18:00 Metoprolol Succinate (Toprol Xl) 12.5 mg DAILY PO Last administered on 06/05/19 09:38; Admin Dose 12.5 MG; Start 05/30/19 at 09:00 Levothyroxine Sodium (Synthroid) 100 mcg BEFORE BREAKFAST PO Last administered on 06/05/19 06:17; Admin Dose 100 MCG; Start 06/01/19 at 07:00 Albuterol/ Ipratropium (Duoneb) 3 ml Q8H RESP THERAPY HHN Last administered on 06/07/19 08:30; Admin Dose 3 ML; Start 06/03/19 at 00:00 Docusate Sodium (Colace Liquid Cup) 100 mg BID GTB Last administered on 9at 08:49; Admin Dose 100 MG; Start 06/03/19 at 21:00 Lorazepam (Ativan) 1 mg QHS PRN PO INSOMNIA; Start 06/03/19 at 17:30 Potassium Chloride (Potassium Chloride Pwd/Soln) 8 meq DAILY GTB Last admin istered on 06/05/19 09:43; Admin Dose 8 MEQ; Start 06/05/19 at 09:30 Polyethylene Glycol (Miralax) 17 gm BID GTB ; Start 06/06/19 at 00:00; Stop 06/07/19 at 23:59 KALPANA ANGELES MD Jun 07, 2019 22:42
[2019-06-08] VITALS: BP 109/63; PULSE 110; RESP 16
[2019-06-08] MEDS: NYSTATIN SUSP 5 ML CUP PO SCH ×6 (00:49→20:54)
[2019-06-08 04:24] VITALS: BP 135/75; PULSE 112; RESP 18
[2019-06-08] MEDS: FUROSEMIDE 40 MG INJ IV SCH ×2 (06:44→17:45)
[2019-06-08] MEDS: LEVOTHYROXINE 100 MCG TAB PO SCH (06:45)
[2019-06-08] MEDS: ALBUTEROL/IPRATROPIUM (NEB) 3 ML AMP HHN SCH ×4 (08:00→23:37)
[2019-06-08 08:46] VITALS: BP 112/57; PULSE 100; RESP 18
[2019-06-08] MEDS: SACUBITRIL/VALSARTAN (24mg-26mg) TABLET PO SCH ×2 (08:59→20:52)
[2019-06-08] MEDS: DOCUSATE SODIUM 10 MG/ML (10ML CUP) GTB SCH ×2 (08:59→20:52)
[2019-06-08] MEDS: POTASSIUM CHLORIDE 20 MEQ POWDER FOR ORAL SOLN GTB SCH (08:59)
[2019-06-08] MEDS: METOPROLOL (XL) 25 MG TAB PO SCH (09:00)
[2019-06-08] MEDS: MAGNESIUM OXIDE 400 MG TAB PO SCH (09:00)
[2019-06-08] MEDS: MEGESTROL 40 MG TAB PO SCH ×3 (09:00→20:54)
[2019-06-08] MEDS: LIDOCAINE 5% PATCH TD SCH ×2 (09:00→15:46)
[2019-06-08] MEDS: FOLIC ACID 1 MG TAB PO SCH (09:00)
--- NOTE | 2019-06-08 09:15 | CONS ---
Assessment/Plan Assessment/Plan Hospital Course (Demo Recall) Hodgkin lymphoma- s/p chemotherapy PT HAS HX PROGRESSIVE REFRACTOPY DIS POST CHEMO AMD IMMUNOTHERAPY, MOST RECENT PET/CT SHOWED SOME IMPROVEMENT DYSPHAGIA GI F-UP POST EGD/BX, AWAIT PATH D/W DAUGHTER KONG Anemia WITH COMPONENT ACD monitor Severe respiratory distress improving. HX IHD angina, Low LVEF dropped. Findings most consistent with mild ADHF with associated type II NSTEMI HX Pulmonary edema Osteoarthritis with pain syndrome Anxiety disorder. Depression with grief reaction-s/p loss of . Urinary incontinence. Osteoporosis. Kyphosis. Postmenopausal syndrome. Brain atrophy on CT. Left sphenoid sinusitis on CT. Left ventricular hypertrophy. Urinary incontinence. Cerebrovascular accident, with left facial drooling, left facial weakness, with slurred speech and dysphagia. Mild left upper extremity weakness.mostly corrected. Hypertension, now normotensive. HX of PTCA with one sent and 3 balloon dilatation of narrow coronary arteries(; Medication noncompliance. Consultation Date/Type/Reason Admit Date/Time May 27, 2019 at 13:49 Initial Consult Date Type of Consult [facility] Requesting Provider: PEDRO KRUSE MD Date/Time of Note DATE: 06/08/19 TIME: 09:15 24 HR Interval Summary Free Text/Dictation ALL NOTED PATH - P Exam/Review of Systems Exam Vitals Vital Signs Date Temp Pulse Resp B/P (MAP) Pulse Ox O2 O2 Flow FiO2 Time Delivery Rate 06/08/19 97.4 100 18 112/57 97 Room Air 08:46 (75) 06/07/19 21 18:36 Intake and Output 06/07/19 06/07/19 06/08/19 1515:00 23:00 07:00 IntakeIntake Total 300 ml 660 ml BalanceBalance 300 ml 660 ml Exam Constitutional: alert, oriented, well developed Psych: no complaints, nl mood/affect Head: normocephalic, atraumatic Eyes: nl conjunctiva, EOMI, nl lids, nl sclera, PERRL ENMT: nl external ears & nose, nl lips & teeth, nl nasal mucosa & septum Neck: supple, non-tender Respiratory: clear to auscultation, normal air movement Cardiovascular: regular rate and rhythm, nl pulses Gastrointestinal: soft, nl liver, spleen, non-tender, GT in place Musculoskeletal: nl extremities to inspection, nl gait and stance Extremities: normal pulses 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: 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, nl mental status, nl speech, nl strength Skin: nl turgor; No rash or lesions Lymph: nl lymph nodes Results Result Diagram: 06/06/19 0839 06/05/19 1519 Medications Medication Current Medications Aspirin (Aspirin) 81 mg DAILY PO Last administered on 05/30/19 09:09; Admin Dose 81 MG; Start 05/27/19 at 18:30; Status Hold Clopidogrel Bisulfate (plaVIX) 75 mg DAILY PO Last administered on 05/30/19 09:07; Admin Dose 75 MG; Start 05/27/19 at 18:30; Status Hold Folic Acid (Folic Acid) 1 mg DAILY PO Last administered on 06/05/19 09:38; Admin Dose 1 MG; Start 05/27/19 at 18:30 Magnesium Oxide (Mag-Ox 400) 400 mg DAILY PO Last administered on 06/05/19 09:37; Admin Dose 400 MG; Start 05/27/19 at 18:30 Megestrol Acetate (Megace) 40 mg TID PO Last administered on 06/06/19 20:28; Admin Dose 40 MG; Start 05/27/19 at 21:00 Nystatin (Nystatin Susp) 5 ml Q4 PO Last administered on 06/08/19 06:44; Admin Dose 5 ML; Start 05/27/19 at 21:00 Sacubitril/ Valsartan (Entresto 24 Mg-26 Mg) 1 tab BID PO Last administered on 06/06/19 20:27; Admin Dose 1 TAB; Start 05/27/19 at 21:00 Ondansetron HCl (Zofran Inj) 4 mg Q4H PRN IV NAUSEA AND/OR VOMITING Last administered on 06/02/19 23:32; Admin Dose 4 MG; Start 05/27/19 at 18:30 Acetaminophen (Tylenol Tab) 500 mg Q6H PRN PO MILD PAIN(1-3)OR ELEVATED TEMP Last administered on 05/31/19 00:43; Admin Dose 500 MG; Start 05/27/19 at 18:30 Albuterol/ Ipratropium (Duoneb) 3 ml Q6H RESP THERAPY PRN HHN SHORTNESS OF BREATH Last administered on 06/04/19 19:56; Admin Dose 3 ML; Start 05/27/19 at 18:30 Lidocaine (Lidoderm) 1 patch DAILY TD Last administered on 06/05/19 09:41; Admin Dose 1 PATCH; Start 05/27/19 at 18:30 [facility] This patient meyer... PRN PRN XX WOUND CARE; Start 05/27/19 at 20:00 Digoxin (Digoxin) 0.125 mg DAILY@1300 PO Last administered on 06/05/19 13:19; Admin Dose 0.125 MG; Start 05/28/19 at 13:00 Furosemide (Lasix) 40 mg BID DIURETICS IV Last administered on 06/08/19 06:44; Admin Dose 40 MG; Start 05/29/19 at 18:00 Metoprolol Succinate (Toprol Xl) 12.5 mg DAILY PO Last administered on 06/05/19 09:38; Admin Dose 12.5 MG; Start 05/30/19 at 09:00 Levothyroxine Sodium (Synthroid) 100 mcg BEFORE BREAKFAST PO Last administered on 06/08/19 06:45; Admin Dose 100 MCG; Start 06/01/19 at 07:00 Albuterol/ Ipratropium (Duoneb) 3 ml Q8H RESP THERAPY HHN Last administered on 06/07/19 08:30; Admin Dose 3 ML; Start 06/03/19 at 00:00 Docusate Sodium (Colace Liquid Cup) 100 mg BID GTB Last administered on 06/04/19 08:49; Admin Dose 100 MG; Start 06/03/19 at 21:00 Lorazepam (Ativan) 1 mg QHS PRN PO INSOMNIA; Start 06/03/19 at 17:30 Potassium Chloride (Potassium Chloride Pwd/Soln) 8 meq DAILY GTB Last administered on 06/05/19 09:43; Admin Dose 8 MEQ; Start 06/05/19 at 09:30 KALPANA ANGELES MD Jun 08, 2019 09:15
--- NOTE | 2019-06-08 09:40 | CONS ---
Assessment/Plan Assessment/Plan Assessment/Plan (Daily) Impression: Hodgkin lymphoma- DYSPHAGIA Anemia WITH COMPONENT ACD Anxiety disorder. Depression with grief reaction-s/p loss of . Cerebrovascular accident, with left facial drooling, left facial weakness, with slurred speech and dysphagia. Mild left upper extremity weakness.mostly cor rected. HX of PTCA with one sent and 3 balloon dilatation of narrow coronary arteries(; Recommendations; 1. f/u path results 2. oncology f/u Consultation Date/Type/Reason Admit Date/Time May 27, 2019 at 13:49 Initial Consult Date 05/27/19 Type of Consult GI Requesting Provider: PEDRO KRUSE MD Date/Time of Note DATE: 06/08/19 TIME: 09:37 24 HR Interval Summary Constitutional: improved Exam/Review of Systems Exam Vitals Vital Signs Date Temp Pulse Resp B/P (MAP) Pulse Ox O2 O2 Flow FiO2 Time Delivery Rate 06/08/19 97.4 100 18 112/57 97 Room Air 08:46 (75) 06/07/19 21 18:36 Intake and Output 06/07/19 06/07/19 06/08/19 1515:00 23:00 07:00 IntakeIntake Total 300 ml 660 ml BalanceBalance 300 ml 660 ml Constitutional: alert Psych: anxiety Head: normocephalic, atraumatic Eyes: nl conjunctiva ENMT: nl external ears & nose, nl nasal mucosa & septum Neck: supple, non-tender Respiratory: clear to auscultation, normal air movement Cardiovascular: regular rate and rhythm, nl pulses Gastrointestinal: soft, non-tender Results Result Diagram: 06/06/19 0839 06/05/19 1519 Medications Medication Current Medications Aspirin (Aspirin) 81 mg DAILY PO Last administered on 05/30/19at 09:09; Admin Dose 81 MG; Start 05/27/19 at 18:30; Status Hold Clopidogrel Bisulfate (plaVIX) 75 mg DAILY PO Last administered on 05/30/19at 09:07; Admin Dose 75 MG; Start 05/27/19 at 18:30; Status Hold Folic Acid (Folic Acid) 1 mg DAILY PO Last administered on 06/05/19at 09:38; Admin Dose 1 MG; Start 05/27/19 at 18:30 Magnesium Oxide (Mag-Ox 400) 400 mg DAILY PO Last administered on 06/05/19 09:37; Admin Dose 400 MG; Start 05/27/19 at 18:30 Megestrol Acetate (Megace) 40 mg TID PO Last administered on 06/06/19 20:28; Admin Dose 40 MG; Start 05/27/19 at 21:00 Nystatin (Nystatin Susp) 5 ml Q4 PO Last administered on 06/08/19 06:44; Admin Dose 5 ML; Start 05/27/19 at 21:00 Sacubitril/ Valsartan (Entresto 24 Mg-26 Mg) 1 tab BID PO Last administered on 06/06/19 20:27; Admin Dose 1 TAB; Start 05/27/19 at 21:00 Ondansetron HCl (Zofran Inj) 4 mg Q4H PRN IV NAUSEA AND/OR VOMITING Last administered on 06/02/19 23:32; Admin Dose 4 MG; Start 05/27/19 at 18:30 Acetaminophen (Tylenol Tab) 500 mg Q6H PRN PO MILD PAIN(1-3)OR ELEVATED TEMP Last administered on 05/31/19 00:43; Admin Dose 500 MG; Start 05/27/19 at 18:30 Albuterol/ Ipratropium (Duoneb) 3 ml Q6H RESP THERAPY PRN HHN SHORTNESS OF BREATH Last administered on 06/04/19 19:56; Admin Dose 3 ML; Start 05/27/19 at 18:30 Lidocaine (Lidoderm) 1 patch DAILY TD Last administered on 06/05/19 09:41; Admin Dose 1 PATCH; Start 05/27/19 at 18:30 Miscellaneous Information (Pending [facility] Order For Wound Care) This patient meyer... PRN PRN XX WOUND CARE; Start 05/27/19 at 20:00 Digoxin (Digoxin) 0.125 mg DAILY@1300 PO Last administered on 06/05/19 13:19; Admin Dose 0.125 MG; Start 05/28/19 at 13:00 Furosemide (Lasix) 40 mg BID DIURETICS IV Last administered on 06/08/19 06:44; Admin Dose 40 MG; Start 05/29/19 at 18:00 Metoprolol Succinate (Toprol Xl) 12.5 mg DAILY PO Last administered on 06/05/19 09:38; Admin Dose 12.5 MG; Start 05/30/19 at 09:00 Levothyroxine Sodium (Synthroid) 100 mcg BEFORE BREAKFAST PO Last administered on 06/08/19 06:45; Admin Dose 100 MCG; Start 06/01/19 at 07:00 Albuterol/ Ipratropium (Duoneb) 3 ml Q8H RESP THERAPY HHN Last administered on 06/07/19 08:30; Admin Dose 3 ML; Start 06/03/19 at 00:00 Docusate Sodium (Colace Liquid Cup) 100 mg BID GTB Last administered on 06/04/19 08:49; Admin Dose 100 MG; Start 06/03/19 at 21:00 Lorazepam (Ativan) 1 mg QHS PRN PO INSOMNIA; Start 06/03/19 at 17:30 Potassium Chloride (Potassium Chloride Pwd/Soln) 8 meq DAILY GTB Last administered on 06/05/19 09:43; Admin Dose 8 MEQ; Start 06/05/19 at 09:30 ABIODUN JARAMILLO MD Jun 08, 2019 09:40
[2019-06-08 12:58] VITALS: BP 110/64; PULSE 100; RESP 18
[2019-06-08] MEDS: DIGOXIN 0.125 MG TAB PO SCH (13:00)
--- NOTE | 2019-06-08 14:36 | CONS ---
Assessment/Plan Assessment/Plan Hospital Course (Demo Recall) IMPRESSION: 1. Preoperative evaluation prior to endoscopy for evaluation of the patient's dysphagia and odynophagia, in a patient that has a severely depressed ejection fraction, mild infiltrates on her chest x-ray but not in gross decompensated congestive heart failure, able to lie flat with good saturations and a recent catheterization in April revealing patent stents.- Now post-op s/p endoscopy with findings of esophageal mass. Now postop s/p G tube placement 2. Cardiomyopathy with severely depressed left ventricular ejection fraction. 3. Congestive heart failure, systolic, [id number]. 4. Dysphagia and odynophagia now s/p G tube 5. Vocal cord paresis. 6. Hypothyroidism. 7. History of percutaneous transluminal coronary angioplasty and stent placement, patent via catheterization 04/2019, with most recent stents actually placed in 2016, with a type 2 non-ST elevated myocardial infarction prior to last catheterization, and a stress test 02/2019, revealing no reversible ischemia with ejection fraction of 19%. 8. [id number]. 9. Lymphoma Hodgkin's ongoing status post chemotherapy. 10. History of cerebrovascular accident. 11. Hypertension. 12. Dyslipidemia. 13. Hypothyroidism. 14. Urinary incontinence. 15. Psychiatric disorder. 16. Nonsustained ventricular tachycardia-no recurrence, neg trop x 3 17. H/O implantable cardioverter-defibrillator. Recc: -Tele -serial ecg's -Contineu toprol/entresto as tolerated and as patient will comply thru G tube at this time -continue digoxin as patient will comply -Now s/p reeat Bx ? ok to resume asa/plavix, f/u pathology -Continue lasix diuresis -s/p d/c imdur given marginal BP Consultation Date/Type/Reason Admit Date/Time May 27, 2019 at 13:49 Initial Consult Date 05/29/19 Type of Consult Cardiology Reason for Consultation Cardiomyopathy Requesting Provider: PEDRO KRUSE MD Date/Time of Note DATE: 06/08/19 TIME: 14:34 Exam/Review of Systems Vital Signs Vitals Vital Signs Date Temp Pulse Resp B/P (MAP) Pulse Ox O2 O2 Flow FiO2 Time Delivery Rate 06/08/19 97.4 100 18 110/64 96 Room Air 12:58 (79) 06/07/19 21 18:36 Intake and Output 06/07/19 06/07/19 06/08/19 1515:00 23:00 07:00 IntakeIntake Total 300 ml 660 ml BalanceBalance 300 ml 660 ml Exam Exam Review of Systems: CONSTITUTIONAL: No fevers, chills. PULMONARY: No sob CARDIOVASCULAR: No chest pain/palpitations GASTROINTESTINAL: dysphagia/odynophagia GENITOURINARY: No hematuria/dysuria. MUSCULOSKELETAL: No myagias/arthalgias. PSYCHIATRIC: The patient denies depression. NEUROLOGIC: No weakness Constitutional: alert Psych: no complaints Head: normocephalic ENMT: mucosa pink and moist Neck: supple, jvd (9 cm water) Respiratory: diminished breath sounds Cardiovascular: regular rate and rhythm Gastrointestinal: soft, non-tender Musculoskeletal: muscle weakness (mild generalized) Extremities: edema (none) 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: focal weakness (none) Labs Result Diagram: 06/06/19 0839 06/05/19 1519 Medications Medications Current Medications Aspirin (Aspirin) 81 mg DAILY PO Last administered on 05/30/19 09:09; Admin Dose 81 MG; Start 05/27/19 at 18:30; Status Hold Clopidogrel Bisulfate (plaVIX) 75 mg DAILY PO Last administered on 05/30/19 09:07; Admin Dose 75 MG; Start 05/27/19 at 18:30; Status Hold Folic Acid (Folic Acid) 1 mg DAILY PO Last administered on 06/05/19 09:38; Admin Dose 1 MG; Start 05/27/19 at 18:30 Magnesium Oxide (Mag-Ox 400) 400 mg DAILY PO Last administered on 06/05/19 09:37; Admin Dose 400 MG; Start 05/27/19 at 18:30 Megestrol Acetate (Megace) 40 mg TID PO Last administered on 06/06/19 20:28; Admin Dose 40 MG; Start 05/27/19 at 21:00 Nystatin (Nystatin Susp) 5 ml Q4 PO Last administered on 06/08/19 06:44; Admin Dose 5 ML; Start 05/27/19 at 21:00 Sacubitril/ Valsartan (Entresto 24 Mg-26 Mg) 1 tab BID PO Last administered on 06/06/19 20:27; Admin Dose 1 TAB; Start 05/27/19 at 21:00 Ondansetron HCl (Zofran Inj) 4 mg Q4H PRN IV NAUSEA AND/OR VOMITING Last administered on 06/02/19 23:32; Admin Dose 4 MG; Start 05/27/19 at 18:30 Acetaminophen (Tylenol Tab) 500 mg Q6H PRN PO MILD PAIN(1-3)OR ELEVATED TEMP Last administered on 05/31/19 00:43; Admin Dose 500 MG; Start 05/27/19 at 18:30 Albuterol/ Ipratropium (Duoneb) 3 ml Q6H RESP THERAPY PRN HHN SHORTNESS OF BREATH Last administered on 06/04/19 19:56; Admin Dose 3 ML; Start 05/27/19 at 18:30 Lidocaine (Lidoderm) 1 patch DAILY TD Last administered on 06/05/19 09:41; Admin Dose 1 PATCH; Start 05/27/19 at 18:30 Miscellaneous Information (Pending [facility] Order For Wound Care) This patient meyer... PRN PRN XX WOUND CARE; Start 05/27/19 at 20:00 Digoxin (Digoxin) 0.125 mg DAILY@1300 PO Last administered on 06/05/19 13:19; Admin Dose 0.125 MG; Start 05/28/19 at 13:00 Furosemide (Lasix) 40 mg BID DIURETICS IV Last administered on 06/08/19 06:44; Admin Dose 40 MG; Start 05/29/19 at 18:00 Metoprolol Succinate (Toprol Xl) 12.5 mg DAILY PO Last administered on 06/05/19 09:38; Admin Dose 12.5 MG; Start 05/30/19 at 09:00 Levothyroxine Sodium (Synthroid) 100 mcg BEFORE BREAKFAST PO Last administered on 06/08/19 06:45; Admin Dose 100 MCG; Start 06/01/19 at 07:00 Albuterol/ Ipratropium (Duoneb) 3 ml Q8H RESP THERAPY HHN Last administered on 06/07/19 08:30; Admin Dose 3 ML; Start 06/03/19 at 00:00 Docusate Sodium (Colace Liquid Cup) 100 mg BID GTB Last administered on 06/04/19 08:49; Admin Dose 100 MG; Start 06/03/19 at 21:00 Lorazepam (Ativan) 1 mg QHS PRN PO INSOMNIA; Start 06/03/19 at 17:30 Potassium Chloride (Potassium Chloride Pwd/Soln) 8 meq DAILY GTB Last administered on 06/05/19at 09:43; Admin Dose 8 MEQ; Start 06/05/19 at 09:30 ARIEL HOBBS Jun 08, 2019 14:36
--- NOTE | 2019-06-08 15:35 | PAC ---
Date/Time of Note Date/Time of Note DATE: 06/08/19 TIME: 15:35 Post-Anesthesia Notes Post-Anesthesia Note Last documented vital signs Vital Signs Date Temp Pulse Resp B/P (MAP) Pulse Ox O2 O2 Flow FiO2 Time Delivery Rate 06/08/19 97.4 100 18 110/64 96 Room Air 12:58 (79) 06/07/19 21 18:36 Activity: WNL Respiratory function: WNL Cardiovascular function: WNL Mental status: Baseline Pain reasonably controlled: Yes Hydration appropriate: Yes Nausea/Vomiting absent: Yes GLADYS CASTREJON MD Jun 08, 2019 15:35
[2019-06-08 15:59] VITALS: BP 110/65; RESP 18
--- NOTE | 2019-06-08 19:05 | PN ---
Date/Time of Note Date/Time of Note DATE: 06/08/19 TIME: 19:01 Assessment/Plan VTE Prophylaxis Risk score (from Nsg)>0 risk: 6 SCD applied (from Ns): No SCD contraindicated: other Pharmacological prophylaxis: LMWH Lines/Cathe[facility] Per[facility] IV Central line still needed: No Urinary Cath still in place: No Reason Cath still needed: urinary retention Assessment/Plan Assessment/Plan 1. S/P G-tube placement due to of Dysphagia.Ulceration of the upper esophagus with inability to eat. Unable to swallow most of the time. Regurgitating even saliva. On and off able to swallow. Severe decrease of voice with substernal pressure sensation severe respiratory distress with worsening of wheezing and inability to sleep. Unable to take medications due to above. Continue titration of the G-tube feeding rate. 2.IHD angina, new onset MN by positive troponin series still high. Discussed with Dr. Alvarez. HX of recent PTCA with one stent and 3 balloon dilatation of narrow coronary arteries(; according to the daughter). Status post stapling of mitral valve 6 months ago in [facility] with improvement of condition immediately after the procedure but still she is having frequent hospitalizations. Although it is evident that the cause is not over drinking possibly medication noncompliance. Discussed with Dr. Alvarez. 3. Dysphagia to solids and sometimes to liquids now to everything. Refuses to eat secondary to pain.. Called Dr.David Silver; [phone] for a ENT consultation. 4. Pulmonary edema by x-ray with wheezing on admission, improved after lasix. Ejection fraction was at 25-30 %. Improved. 5. History of Hodgkin lymphoma:. 6. Osteoarthritis with pain syndrome 7. Anxiety disorder. 8. Depression with grief reaction-s/p loss of . 9. Urinary incontinence. 10. Osteoporosis. 11. Kyphosis. 12. Postmenopausal syndrome. 13. Anemia with nl iron. 14. Brain atrophy on CT. 15. Left sphenoid sinusitis on CT. 16. Left ventricular hypertrophy. 17. Urinary incontinence with recurrent UTIs. Now with enterococcus species. 18.Cerebrovascular accident, with left facial drooling, left facial weakness, with slurred speech and dysphagia. Mild left upper extremity weakness. 19. Hypertension, now normotensive.Cardiomegaly on cxr 20. Status post left subclavian area pacemaker implantation about 3 months ago. 21. Status post mitral valve endocardial manipulation with stapling of the valves with good clinical results. 22. Recurrent episodes of V. tach now 8 complexes on a monitor and SVT; placed on the monitor but cardiology consult. 23.Weight loss mainly due to of not eating well. 24.Sleeplessness 25.Poor self expression capacity and getting worse. Talks for minutes but unable to conclude talk or be precise. 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 27. Weight loss-now she is gaining weight after starting the G-tube feeding. 28. 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 Expecting also the possibility of a second malignancy to be excluded 29.Medication noncompliance. Result Diagram: 06/06/19 0839 06/05/19 1519 Subjective 24 Hr Interval Summary Free Text/Dictation Loss of voice. With great difficulty she is expressing some sounds. No BM. Possible nausea but no vomiting. Denies fever or chills. Comparing with yesterday to date it is less hemoptysis. And she is not anxious as she was yesterday. Discussed with family to wait until bleeding totally stops and labs become available that we can send her home for further management. Constitutional: chills Eyes: No no complaints, No pain, No discharge, No redness, No visual change, No other ENT: bleeding, congestion, dysphagia, sore throat; No no complaints, No pain, No discharge, No other Cardiovascular: orthopenea, palpitations; No no complaints, No chest pain, No edema, No lightheadedness, No paroxysmal nocturnal dyspnea, No other Gastrointestinal: No no complaints, No pain, No blood, No constipation, No decreased appetite, No diarrhea, No flatus, No nausea, No passing stool, No vomiting, No other Genitourinary: dysuria; No no complaints, No bleeding, No discharge, No flank pain, No hematuria, No other Musculoskeletal: back pain, neck pain; No no complaints, No bone/joint pain, No restricted range of motion, No swelling, No other Skin: No no complaints, No bruising, No erythema, No laceration, No pruritis, No rash, No skin lesions, No other Neurologic: No no complaints, No confusion, No dizziness, No focal-weakness, No headache, No syncope, No seizure, No other Endocrine: dry skin; No no complaints, No polyuria, No polydypsia, No temp intolerance, No other Lymphatic: adenopathy; No no complaints, No tender nodes, No lymphadema, No other Exam/Review of Systems Exam Vitals Vital Signs Date Temp Pulse Resp B/P (MAP) Pulse Ox O2 O2 Flow FiO2 Time Delivery Rate 06/08/19 97.3 18 110/65 98 Room Air 15:59 (80) 06/08/19 100 12:58 06/07/19 21 18:36 Intake and Output 06/07/19 06/07/19 06/08/19 1515:00 23:00 07:00 IntakeIntake Total 300 ml 660 ml BalanceBalance 300 ml 660 ml Constitutional: alert, oriented, well developed, frail, other (She is not following days she become more independent..) Psych: anxiety, depression; No no complaints, No nl mood/affect, No confusion, No suicidal, No other Head: normocephalic, atraumatic Eyes: EOMI, PERRL; No nl conjunctiva, No nl lids, No nl sclera, No icteric, No fundi, disc, No other ENMT: other (Voice is totally down with occasional episodes of being expressed some warts. Attempts to clean the throat unable positive for trace of blood while expectorating.); No nl external ears & nose, No nl lips & teeth, No nl nasal mucosa & septum, No mucosa pink and moist, No intubated, No tympanic membranes Neck: jvd, nuchal rigidity; No supple, No non-tender, No bruits, No masses, No thyromegaly, No other Respiratory: normal air movement; No clear to auscultation, No congested cough, No crackles/rales, No diminished breath sounds, No intercostal retraction, No labored breathing, No respirations, No tactile fremitus, No wheezing, No other Cardiovascular: nl pulses, diastolic murmur; No regular rate and rhythm, No bruits, No edema, No gallop, No irregular rhythm, No jugular venous distention (JVD), No murmurs/extra sounds, No rub, No systolic murmur, No S3, No S4, No other Gastrointestinal: soft, nl liver, spleen, other (.G-tubes site is clear); No non-tender, No ascites, No bowel sounds, No distended, No firm, No hepatomegaly, No mass, No rebound or guarding, No splenomegaly, No surgical scars, No tender Musculoskeletal: joint tenderness; No nl extremities to inspection, No nl gait and stance, No muscle tone, No muscle weakness, No range of motion, No spine non-tender, No swelling, No other Extremities: No normal pulses, No calf tenderness, No cyanosis, No clubbing, No edema, No pitting pedal edema, No palpable cord, No tenderness, No other 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: No CREW LEADER II-XII intact, No nl mental status, No nl speech, No nl strength, No confused, No DTR's symmetric, No focal weakness, No lethargic, No numbness, No reflexes, No unresponsive, No other Medications Medication Current Medications Aspirin (Aspirin) 81 mg DAILY PO Last administered on 05/30/19 09:09; Admin Dose 81 MG; Start 05/27/19 at 18:30; Status Hold Clopidogrel Bisulfate (plaVIX) 75 mg DAILY PO Last administered on 05/30/19 09:07; Admin Dose 75 MG; Start 05/27/19 at 18:30; Status Hold Folic Acid (Folic Acid) 1 mg DAILY PO Last administered on 06/05/19 09:38; Admin Dose 1 MG; Start 05/27/19 at 18:30 Magnesium Oxide (Mag-Ox 400) 400 mg DAILY PO Last administered on 06/05/19 09: 37; Admin Dose 400 MG; Start 05/27/19 at 18:30 Megestrol Acetate (Megace) 40 mg TID PO Last administered on 06/06/19 20:28; Admin Dose 40 MG; Start 05/27/19 at 21:00 Nystatin (Nystatin Susp) 5 ml Q4 PO Last administered on 06/08/19 06:44; Admin Dose 5 ML; Start 05/27/19 at 21:00 Sacubitril/ Valsartan (Entresto 24 Mg-26 Mg) 1 tab BID PO Last administered on 06/06/19 20:27; Admin Dose 1 TAB; Start 05/27/19 at 21:00 Ondansetron HCl (Zofran Inj) 4 mg Q4H PRN IV NAUSEA AND/OR VOMITING Last adm inistered on 06/02/19 23:32; Admin Dose 4 MG; Start 05/27/19 at 18:30 Acetaminophen (Tylenol Tab) 500 mg Q6H PRN PO MILD PAIN(1-3)OR ELEVATED TEMP Last administered on 05/31/19 00:43; Admin Dose 500 MG; Start 05/27/19 at 18:30 Albuterol/ Ipratropium (Duoneb) 3 ml Q6H RESP THERAPY PRN HHN SHORTNESS OF BREATH Last administered on 06/04/19 19:56; Admin Dose 3 ML; Start 05/27/19 at 18:30 Lidocaine (Lidoderm) 1 patch DAILY TD Last administered on 06/08/19 15:46; Admin Dose 1 PATCH; Start 05/27/19 at 18:30 Miscellaneous Information (Pending [facility] Order For Wound Care) This patient meyer... PRN PRN XX WOUND CARE; Start 05/27/19 at 20:00 Digoxin (Digoxin) 0.125 mg DAILY@1300 PO Last administered on 06/05/19 13:19; Admin Dose 0.125 MG; Start 05/28/19 at 13:00 Furosemide (Lasix) 40 mg BID DIURETICS IV Last administered on 06/08/19 06:44; Admin Dose 40 MG; Start 05/29/19 at 18:00 Metoprolol Succinate (Toprol Xl) 12.5 mg DAILY PO Last administered on 06/05/19 09:38; Admin Dose 12.5 MG; Start 05/30/19 at 09:00 Levothyroxine Sodium (Synthroid) 100 mcg BEFORE BREAKFAST PO Last administered on 06/08/19 06:45; Admin Dose 100 MCG; Start 06/01/19 at 07:00 Albuterol/ Ipratropium (Duoneb) 3 ml Q8H RESP THERAPY HHN Last administered on 06/07/19 08:30; Admin Dose 3 ML; Start 06/03/19 at 00:00 Docusate Sodium (Colace Liquid Cup) 100 mg BID GTB Last administered on 06/04/19 08:49; Admin Dose 100 MG; Start 06/03/19 at 21:00 Lorazepam (Ativan) 1 mg QHS PRN PO INSOMNIA; Start 06/03/19 at 17:30 Potassium Chloride (Potassium Chloride Pwd/Soln) 8 meq DAILY GTB Last administered on 06/05/19at 09:43; Admin Dose 8 MEQ; Start 06/05/19 at 09:30 PEDRO KRUSE MD Jun 08, 2019 19:05
[2019-06-08 20:31] VITALS: BP 120/69; PULSE 109; RESP 18
[2019-06-08] MEDS: ACETAMINOPHEN 500 MG TAB PO PRN (21:17)
[2019-06-09] VITALS (7 sets, daily range): BP systolic 95–129; BP diastolic 56–99; PULSE 78–104; RESP 18–20
[2019-06-09] MEDS: NYSTATIN SUSP 5 ML CUP PO SCH ×6 (01:00→21:19)
[2019-06-09] MEDS: FUROSEMIDE 40 MG INJ IV SCH ×2 (06:33→17:52)
[2019-06-09] MEDS: LEVOTHYROXINE 100 MCG TAB PO SCH (06:34)
[2019-06-09] MEDS: ALBUTEROL/IPRATROPIUM (NEB) 3 ML AMP HHN SCH ×2 (08:00→16:00)
[2019-06-09] MEDS: DOCUSATE SODIUM 10 MG/ML (10ML CUP) GTB SCH ×2 (09:00→21:00)
--- NOTE | 2019-06-09 09:06 | CONS ---
Assessment/Plan Assessment/Plan Assessment/Plan (Daily) Impression: Hodgkin lymphoma- DYSPHAGIA Anemia WITH COMPONENT ACD Anxiety disorder. Depression with grief reaction-s/p loss of . Cerebrovascular accident, with left facial drooling, left facial weakness, with slurred speech and dysphagia. Mild left upper extremity weakness.mostly cor rected. HX of PTCA with one sent and 3 balloon dilatation of narrow coronary arteries Recommendations; 1. f/u path results 2. oncology f/u 3. I explained to patient that her dysphagia is multifactoria and due to her h/o CVA, esophagotracheal fistula. I mentioned to her that she has G tube. However, she wants Dr. Alejandro to explain and manage. 4. I explained to patient that I am cover Dr. Alejandro over the weekend and that Dr. Alejandro will resume her care tomorrow Consultation Date/Type/Reason Admit Date/Time May 27, 2019 at 13:49 Initial Consult Date 05/27/19 Type of Consult GI Requesting Provider: PEDRO KRUSE MD Date/Time of Note DATE: 06/09/19 TIME: 09:01 24 HR Interval Summary Free Text/Dictation complains of cannot swallow, wants to know when Dr. Alejandro comes back Exam/Review of Systems Exam Vitals Vital Signs Date Temp Pulse Resp B/P (MAP) Pulse Ox O2 O2 Flow FiO2 Time Delivery Rate 06/09/19 97.4 78 18 100/99 98 Room Air 07:27 (99) 06/07/19 21 18:36 Intake and Output 06/08/19 06/08/19 06/09/19 1515:00 23:00 07:00 IntakeIntake Total 600 ml 370 ml BalanceBalance 600 ml 370 ml Constitutional: alert, oriented, well developed Psych: anxiety Head: normocephalic, atraumatic Eyes: nl conjunctiva, nl lids ENMT: nl external ears & nose, nl nasal mucosa & septum Neck: supple, non-tender Respiratory: clear to auscultation, normal air movement Cardiovascular: regular rate and rhythm, nl pulses Gastrointestinal: soft, non-tender, bowel sounds Results Result Diagram: 06/09/19 0542 06/09/19 0542 Results 24hrs Laboratory Tests Test 06/09/19 05:42 White Blood Count 6.8 Red Blood Count 4.52 Hemoglobin 12.2 Hematocrit 38.4 Mean Corpuscular Volume 85.0 Mean Corpuscular Hemoglobin 27.0 L Mean Corpuscular Hemoglobin Concent 31.8 L Red Cell Distribution Width 19.6 H Platelet Count 269 # Mean Platelet Volume 11.7 H Immature Granulocytes % 0.300 Neutrophils % 68.6 Lymphocytes % 18.8 Monocytes % 9.4 Eosinophils % 2.6 Basophils % 0.3 Nucleated Red Blood Cells % 0.0 Immature Granulocytes # 0.020 Neutrophils # 4.7 Lymphocytes # 1.3 Monocytes # 0.6 Eosinophils # 0.2 Basophils # 0.0 Nucleated Red Blood Cells # 0.0 Sodium Level 143 Potassium Level 3.5 Chloride Level 105 Carbon Dioxide Level 28 Anion Gap 10 Blood Urea Nitrogen 27 H Creatinine 0.81 Est Glomerular Filtrat Rate mL/min Glucose Level 108 Calcium Level 10.0 Magnesium Level 2.4 Iron Level 95 Total Iron Binding Capacity 306 Percent Iron Saturation 31 Total Bilirubin 0.7 Direct Bilirubin 0.00 Indirect Bilirubin 0.7 Aspartate Amino Transf (AST/SGOT) 44 Alanine Aminotransferase (ALT/SGPT) 35 Alkaline Phosphatase 77 Total Protein 7.6 Albumin 4.1 Globulin 3.50 H Albumin/Globulin Ratio 1.17 Digoxin Level 0.6 L Medications Medication Current Medications Aspirin (Aspirin) 81 mg DAILY PO Last administered on 05/30/19 09:09; Admin Dose 81 MG; Start 05/27/19 at 18:30; Status Hold Clopidogrel Bisulfate (plaVIX) 75 mg DAILY PO Last administered on 05/30/19 09:07; Admin Dose 75 MG; Start 05/27/19 at 18:30; Status Hold Folic Acid (Folic Acid) 1 mg DAILY PO Last administered on 06/05/19 09:38; Admin Dose 1 MG; Start 05/27/19 at 18:30 Magnesium Oxide (Mag-Ox 400) 400 mg DAILY PO Last administered on 06/05/19 09:37; Admin Dose 400 MG; Start 05/27/19 at 18:30 Megestrol Acetate (Megace) 40 mg TID PO Last administered on 06/06/19 20:28; Admin Dose 40 MG; Start 05/27/19 at 21:00 Nystatin (Nystatin Susp) 5 ml Q4 PO Last administered on 06/08/19 06:44; Admin Dose 5 ML; Start 05/27/19 at 21:00 Sacubitril/ Valsartan (Entresto 24 Mg-26 Mg) 1 tab BID PO Last administered on 06/06/19 20:27; Admin Dose 1 TAB; Start 05/27/19 at 21:00 Ondansetron HCl (Zofran Inj) 4 mg Q4H PRN IV NAUSEA AND/OR VOMITING Last administered on 06/02/19 23:32; Admin Dose 4 MG; Start 05/27/19 at 18:30 Acetaminophen (Tylenol Tab) 500 mg Q6H PRN PO MILD PAIN(1-3)OR ELEVATED TEMP Last administered on 06/08/19 21:17; Admin Dose 500 MG; Start 05/27/19 at 18:30 Albuterol/ Ipratropium (Duoneb) 3 ml Q6H RESP THERAPY PRN HHN SHORTNESS OF BREATH Last administered on 06/04/19 19:56; Admin Dose 3 ML; Start 05/27/19 at 18:30 Lidocaine (Lidoderm) 1 patch DAILY TD Last administered on 06/08/19 15:46; Admin Dose 1 PATCH; Start 05/27/19 at 18:30 Miscellaneous Information ([facility]ending [facility]) This patient meyer... PRN PRN XX WOUND CARE; Start 05/27/19 at 20:00 Digoxin (Digoxin) 0.125 mg DAILY@1300 PO Last administered on 06/05/19 13:19; Admin Dose 0.125 MG; Start 05/28/19 at 13:00 Furosemide (Lasix) 40 mg BID DIURETICS IV Last administered on 06/09/19 06:33; Admin Dose 40 MG; Start 05/29/19 at 18:00 Metoprolol Succinate (Toprol Xl) 12.5 mg DAILY PO Last administered on 06/05/19 09:38; Admin Dose 12.5 MG; Start 05/30/19 at 09:00 Levothyroxine Sodium (Synthroid) 100 mcg BEFORE BREAKFAST PO Last administered on 06/09/19 06:34; Admin Dose 100 MCG; Start 06/01/19 at 07:00 Albuterol/ Ipratropium (Duoneb) 3 ml Q8H RESP THERAPY HHN Last administered on 06/07/19 08:30; Admin Dose 3 ML; Start 06/03/19 at 00:00 Docusate Sodium (Colace Liquid Cup) 100 mg BID GTB Last administered on 06/04/19at 08:49; Admin Dose 100 MG; Start 06/03/19 at 21:00 Lorazepam (Ativan) 1 mg QHS PRN PO INSOMNIA; Start 06/03/19 at 17:30 Potassium Chloride (Potassium Chloride Pwd/Soln) 8 meq DAILY GTB Last administered on 06/05/19at 09:43; Admin Dose 8 MEQ; Start 06/05/19 at 09:30 ABIODUN JARAMILLO MD Jun 09, 2019 09:06
[2019-06-09] MEDS: MEGESTROL 40 MG TAB PO SCH ×3 (09:18→21:00)
[2019-06-09] MEDS: FOLIC ACID 1 MG TAB PO SCH (09:18)
[2019-06-09] MEDS: MAGNESIUM OXIDE 400 MG TAB PO SCH (09:18)
[2019-06-09] MEDS: SACUBITRIL/VALSARTAN (24mg-26mg) TABLET PO SCH ×2 (09:18→21:00)
[2019-06-09] MEDS: METOPROLOL (XL) 25 MG TAB PO SCH (09:19)
[2019-06-09] MEDS: POTASSIUM CHLORIDE 20 MEQ POWDER FOR ORAL SOLN GTB SCH (09:20)
--- NOTE | 2019-06-09 11:06 | CONS ---
Assessment/Plan Assessment/Plan Hospital Course (Demo Recall) IMPRESSION: 1. Preoperative evaluation prior to endoscopy for evaluation of the patient's dysphagia and odynophagia, in a patient that has a severely depressed ejection fraction, mild infiltrates on her chest x-ray but not in gross decompensated congestive heart failure, able to lie flat with good saturations and a recent catheterization in April revealing patent stents.- Now post-op s/p endoscopy with findings of esophageal mass. Now postop s/p G tube placement 2. Cardiomyopathy with severely depressed left ventricular ejection fraction. 3. Congestive heart failure, systolic, [id number]. 4. Dysphagia and odynophagia now s/p G tube 5. Vocal cord paresis. 6. Hypothyroidism. 7. History of percutaneous transluminal coronary angioplasty and stent placement, patent via catheterization 04/2019, with most recent stents actually placed in 2016, with a type 2 non-ST elevated myocardial infarction prior to last catheterization, and a stress test 02/2019, revealing no reversible ischemia with ejection fraction of 19%. 8. [id number]. 9. Lymphoma Hodgkin's ongoing status post chemotherapy. 10. History of cerebrovascular accident. 11. Hypertension. 12. Dyslipidemia. 13. Hypothyroidism. 14. Urinary incontinence. 15. Psychiatric disorder. 16. Nonsustained ventricular tachycardia-no recurrence, neg trop x 3 17. H/O implantable cardioverter-defibrillator. Recc: -Tele -serial ecg's -Contineu toprol/entresto as tolerated and as patient will comply thru G tube at this time -continue digoxin as patient will comply -Now s/p reeat Bx ? ok to resume asa/plavix, f/u pathology -Continue lasix diuresis -s/p d/c imdur given marginal BP Consultation Date/Type/Reason Admit Date/Time May 27, 2019 at 13:49 Initial Consult Date 05/29/19 Type of Consult Cardiology Reason for Consultation tachycardia Requesting Provider: PEDRO KRUSE MD Date/Time of Note DATE: 06/09/19 TIME: 11:05 Exam/Review of Systems Vital Signs Vitals Vital Signs Date Temp Pulse Resp B/P (MAP) Pulse Ox O2 O2 Flow FiO2 Time Delivery Rate 06/09/19 97.4 78 18 100/99 98 Room Air 07:27 (99) 06/07/19 21 18:36 Intake and Output 06/08/19 06/08/19 06/09/19 1515:00 23:00 07:00 IntakeIntake Total 600 ml 370 ml BalanceBalance 600 ml 370 ml Exam Exam Review of Systems: CONSTITUTIONAL: No fevers, chills. PULMONARY: No sob CARDIOVASCULAR: No chest pain/palpitations GASTROINTESTINAL: dysphagia GENITOURINARY: No hematuria/dysuria. MUSCULOSKELETAL: No myagias/arthalgias. PSYCHIATRIC: The patient denies depression. NEUROLOGIC: No weakness Constitutional: alert, oriented Psych: no complaints Head: normocephalic ENMT: mucosa pink and moist Neck: supple, jvd (9 cm water) Respiratory: clear to auscultation Cardiovascular: regular rate and rhythm Gastrointestinal: soft, non-tender Musculoskeletal: muscle weakness (generalized) Extremities: edema (none) 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: other (no focal deficits) Labs Result Diagram: 06/09/19 0542 06/09/19 0542 Results 24hrs Laboratory Tests Test 06/09/19 05:42 White Blood Count 6.8 Red Blood Count 4.52 Hemoglobin 12.2 Hematocrit 38.4 Mean Corpuscular Volume 85.0 Mean Corpuscular Hemoglobin 27.0 L Mean Corpuscular Hemoglobin Concent 31.8 L Red Cell Distribution Width 19.6 H Platelet Count 269 # Mean Platelet Volume 11.7 H Immature Granulocytes % 0.300 Neutrophils % 68.6 Lymphocytes % 18.8 Monocytes % 9.4 Eosinophils % 2.6 Basophils % 0.3 Nucleated Red Blood Cells % 0.0 Immature Granulocytes # 0.020 Neutrophils # 4.7 Lymphocytes # 1.3 Monocytes # 0.6 Eosinophils # 0.2 Basophils # 0.0 Nucleated Red Blood Cells # 0.0 Sodium Level 143 Potassium Level 3.5 Chloride Level 105 Carbon Dioxide Level 28 Anion Gap 10 Blood Urea Nitrogen 27 H Creatinine 0.81 Est Glomerular Filtrat Rate mL/min Glucose Level 108 Calcium Level 10.0 Magnesium Level 2.4 Iron Level 95 Total Iron Binding Capacity 306 Percent Iron Saturation 31 Total Bilirubin 0.7 Direct Bilirubin 0.00 Indirect Bilirubin 0.7 Aspartate Amino Transf (AST/SGOT) 44 Alanine Aminotransferase (ALT/SGPT) 35 Alkaline Phosphatase 77 Total Protein 7.6 Albumin 4.1 Globulin 3.50 H Albumin/Globulin Ratio 1.17 Digoxin Level 0.6 L Medications Medications Current Medications Aspirin (Aspirin) 81 mg DAILY PO Last administered on 05/30/19 09:09; Admin Dose 81 MG; Start 05/27/19 at 18:30; Status Hold Clopidogrel Bisulfate (plaVIX) 75 mg DAILY PO Last administered on 05/30/19 09:07; Admin Dose 75 MG; Start 05/27/19 at 18:30; Status Hold Folic Acid (Folic Acid) 1 mg DAILY PO Last administered on 06/09/19 09:18; Admin Dose 1 MG; Start 05/27/19 at 18:30 Magnesium Oxide (Mag-Ox 400) 400 mg DAILY PO Last administered on 06/09/19 09:18; Admin Dose 400 MG; Start 05/27/19 at 18:30 Megestrol Acetate (Megace) 40 mg TID PO Last administered on 06/09/19 09:18; Admin Dose 40 MG; Start 05/27/19 at 21:00 Nystatin (Nystatin Susp) 5 ml Q4 PO Last administered on 06/09/19 09:20; Admin Dose 5 ML; Start 05/27/19 at 21:00 Sacubitril/ Valsartan (Entresto 24 Mg-26 Mg) 1 tab BID PO Last administered on 06/09/19 09:18; Admin Dose 1 TAB; Start 05/27/19 at 21:00 Ondansetron HCl (Zofran Inj) 4 mg Q4H PRN IV NAUSEA AND/OR VOMITING Last administered on 06/02/19 23:32; Admin Dose 4 MG; Start 05/27/19 at 18:30 Acetaminophen (Tylenol Tab) 500 mg Q6H PRN PO MILD PAIN(1-3)OR ELEVATED TEMP Last administered on 06/08/19 21:17; Admin Dose 500 MG; Start 05/27/19 at 18:30 Albuterol/ Ipratropium (Duoneb) 3 ml Q6H RESP THERAPY PRN HHN SHORTNESS OF BREATH Last administered on 06/04/19 19:56; Admin Dose 3 ML; Start 05/27/19 at 18:30 Lidocaine (Lidoderm) 1 patch DAILY TD Last administered on 06/08/19 15:46; Admin Dose 1 PATCH; Start 05/27/19 at 18:30 Miscellaneous Information (Pending [facility] Order For Wound Care) This patient meyer... PRN PRN XX WOUND CARE; Start 05/27/19 at 20:00 Digoxin (Digoxin) 0.125 mg DAILY@1300 PO Last administered on 06/05/19 13:19; Admin Dose 0.125 MG; Start 05/28/19 at 13:00 Furosemide (Lasix) 40 mg BID DIURETICS IV Last administered on 06/09/19 06:33; Admin Dose 40 MG; Start 05/29/19 at 18:00 Metoprolol Succinate (Toprol Xl) 12.5 mg DAILY PO Last administered on 06/09/19 09:19; Admin Dose 12.5 MG; Start 05/30/19 at 09:00 Levothyroxine Sodium (Synthroid) 100 mcg BEFORE BREAKFAST PO Last administered on 06/09/19 06:34; Admin Dose 100 MCG; Start 06/01/19 at 07:00 Albuterol/ Ipratropium (Duoneb) 3 ml Q8H RESP THERAPY HHN Last administered on 06/07/19 08:30; Admin Dose 3 ML; Start 06/03/19 at 00:00 Docusate Sodium (Colace Liquid Cup) 100 mg BID GTB Last administered on 06/04/19 08:49; Admin Dose 100 MG; Start 06/03/19 at 21:00 Lorazepam (Ativan) 1 mg QHS PRN PO INSOMNIA; Start 06/03/19 at 17:30 Potassium Chloride (Potassium Chloride Pwd/Soln) 8 meq DAILY GTB Last administered on 06/09/19 09:20; Admin Dose 8 MEQ; Start 06/05/19 at 09:30 ARIEL HOBBS Jun 09, 2019 11:06
[2019-06-09] MEDS: DIGOXIN 0.125 MG TAB PO SCH (13:16)
[2019-06-09] MEDS: ONDANSETRON 4 MG INJ IV PRN (15:40)
[2019-06-09] MEDS: LIDOCAINE 5% PATCH TD SCH (17:50)
--- NOTE | 2019-06-09 21:46 | PN ---
Date/Time of Note Date/Time of Note DATE: 06/09/19 TIME: 21:39 Assessment/Plan VTE Prophylaxis Risk score (from Ns)>0 risk: 3 SCD applied (from Ns): No SCD contraindicated: other Pharmacological prophylaxis: LMWH Pharm contraindication: patient refusal Lines/Catheters IV [facility]ter [facility]from [facility]): [place] [employer] line still needed: No Urinary Cath still in place: No Reason Cath still needed: urinary retention Assessment/Plan Assessment/Plan 1. S/P G-tube placement due to of Dysphagia.Ulceration of the upper esophagus with inability to eat. Unable to swallow most of the time. Re gurgitating even saliva. On and off able to swallow. Severe decrease of voice with substernal pressure sensation severe respiratory distress with worsening of wheezing and inability to sleep. Unable to take medications due to above. Continue titration of the G-tube feeding rate. 2.IHD angina, new onset [place] by positive troponin series still high. Discussed with Dr. Alvarez. HX of recent PTCA with one stent and 3 balloon dilatation of narrow coronary arteries(; according to the daughter). Status post stapling of mitral valve 6 months ago in [facility] with improvement of condition immediately after the procedure but still she is having frequent hospitalizations. Although it is evident that the cause is not over drinking possibly medication noncompliance. Discussed with Dr. Alvarez. 3. Dysphagia to solids and sometimes to liquids now to everything. Refuses to eat secondary to pain.. Called Dr.David Silver; [phone] for a ENT consultation. 4. Pulmonary edema by x-ray with wheezing on admission, improved after lasix. Ejection fraction was at 25-30 %. Improved. 5. History of Hodgkin lymphoma:. 6. Osteoarthritis with pain syndrome 7. Anxiety disorder. 8. Depression with grief reaction-s/p loss of . 9. Urinary incontinence. 10. Osteoporosis. 11. Kyphosis. 12. Postmenopausal syndrome. 13. Anemia with nl iron. 14. Brain atrophy on CT. 15. Left sphenoid sinusitis on CT. 16. Left ventricular hypertrophy. 17. Urinary incontinence with recurrent UTIs. Now with enterococcus species. 18.Cerebrovascular accident, with left facial drooling, left facial weakness, with slurred speech and dysphagia. Mild left upper extremity weakness. 19. Hypertension, now normotensive.Cardiomegaly on cxr 20. Status post left subclavian area pacemaker implantation about 3 months ago. 21. Status post mitral valve endocardial manipulation with stapling of the valves with good clinical results. 22. Recurrent episodes of V. tach now 8 complexes on a monitor and SVT; placed on the monitor but cardiology consult. 23.Weight loss mainly due to of not eating well.Now gaining. G-tube feeding rate 40cc/hr is tolerable. More than that it appears to be too much for her. 24.Sleeplessness 25.Poor self expression capacity and getting worse. Talks for minutes but unable to conclude talk or be precise. 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 27. Weight loss-now she is gaining weight after starting the G-tube feeding. 28. 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 Expecting also the possibility of a second malignancy to be excluded 29.Medication noncompliance. Result Diagram: 06/09/19 0542 06/09/19 0542 Results 24hrs Laboratory Tests Test 06/09/19 05:42 White Blood Count 6.8 Red Blood Count 4.52 Hemoglobin 12.2 Hematocrit 38.4 Mean Corpuscular Volume 85.0 Mean Corpuscular Hemoglobin 27.0 L Mean Corpuscular Hemoglobin Concent 31.8 L Red Cell Distribution Width 19.6 H Platelet Count 269 # Mean Platelet Volume 11.7 H Immature Granulocytes % 0.300 Neutrophils % 68.6 Lymphocytes % 18.8 Monocytes % 9.4 Eosinophils % 2.6 Basophils % 0.3 Nucleated Red Blood Cells % 0.0 Immature Granulocytes # 0.020 Neutrophils # 4.7 Lymphocytes # 1.3 Monocytes # 0.6 Eosinophils # 0.2 Basophils # 0.0 Nucleated Red Blood Cells # 0.0 Sodium Level 143 Potassium Level 3.5 Chloride Level 105 Carbon Dioxide Level 28 Anion Gap 10 Blood Urea Nitrogen 27 H Creatinine 0.81 Est Glomerular Filtrat Rate mL/min Glucose Level 108 Calcium Level 10.0 Magnesium Level 2.4 Iron Level 95 Total Iron Binding Capacity 306 Percent Iron Saturation 31 Total Bilirubin 0.7 Direct Bilirubin 0.00 Indirect Bilirubin 0.7 Aspartate Amino Transf (AST/SGOT) 44 Alanine Aminotransferase (ALT/SGPT) 35 Alkaline Phosphatase 77 Total Protein 7.6 Albumin 4.1 Globulin 3.50 H Albumin/Globulin Ratio 1.17 Digoxin Level 0.6 L Subjective 24 Hr Interval Summary Free Text/Dictation Decreased voice. The patient is expressing thoughts that she lost the hope that it is possible to cure her. Family present. Pathology reports are pending. It become evident that 60 cc/h is too much for her through G-tube. We have stopped now 40 cc a rate for 6 hours recheck residual after 2 hours to adjust the dose after discharge. Constitutional: poor po, requiring O2; No no complaints, No improved, No chills, No diaphoresis, No disoriented, No febrile, No requiring IVF, No other Eyes: No no complaints, No pain, No discharge, No redness, No visual change, No other ENT: bleeding (No more bleeding more than 24 hours.), congestion, dysphagia; No no complaints, No pain, No discharge, No sore throat, No other Respiratory: cough, pleuritic pain, shortness of breath; No no complaints, No pain, No sputum, No wheezing, No other Cardiovascular: chest pain; No no complaints, No edema, No lightheadedness, No orthopenea, No pal pitations, No paroxysmal nocturnal dyspnea, No other Gastrointestinal: no complaints (Epigastric distention bowel sounds are present.), constipation, decreased appetite, flatus, nausea, passing stool; No pain, No blood, No diarrhea, No vomiting, No other Genitourinary: dysuria; No no complaints, No bleeding, No discharge, No flank pain, No hematuria, No other Musculoskeletal: back pain, bone/joint pain; No no complaints, No neck pain, No restricted range of motion, No swelling, No other Skin: No no complaints, No bruising, No erythema, No laceration, No pruritis, No rash, No skin lesions, No other Neurologic: headache; No no complaints, No confusion, No dizziness, No focal-weakness, No syncope, No seizure, No other Endocrine: polyuria, dry skin Lymphatic: No no complaints, No adenopathy, No tender nodes, No lymphadema, No other Psychological: anxiety; No no complaints, No nl mood/affect, No confusion, No depression, No suicidal, No other Immunologic: No no complaints, No immunodeficiency, No pruritis, No rhinitis, No urticaria, No other Exam/Review of Systems Exam Vitals Vital Signs Date Temp Pulse Resp B/P (MAP) Pulse Ox O2 O2 Flow FiO2 Time Delivery Rate 06/09/19 97.6 104 20 109/57 96 Nasal 20:26 (74) Cannula 06/07/19 21 18:36 Intake and Output 06/08/19 06/08/19 06/09/19 1515:00 23:00 07:00 IntakeIntake Total 600 ml 370 ml BalanceBalance 600 ml 370 ml Constitutional: alert, oriented, well developed, distress, frail; No non-verbal, No obese, No other Psych: anxiety, depression; No no complaints, No nl mood/affect, No confusion, No suicidal, No other Head: normocephalic, atraumatic; No lacerations, No hematomas, No other Eyes: EOMI, nl lids, PERRL; No nl conjunctiva, No nl sclera, No icteric, No fundi, disc, No other ENMT: nl external ears & nose; No nl lips & teeth, No nl nasal mucosa & septum, No mucosa pink and moist, No intubated, No tympanic membranes, No other Neck: jvd, bruits; No supple, No non-tender, No masses, No thyromegaly, No nuchal rigidity, No other Respiratory: clear to auscultation, congested cough, crackles/rales, diminished breath sounds Cardiovascular: nl pulses, systolic murmur; No regular rate and rhythm, No bruits, No diastolic murmur, No edema, No gallop, No irregular rhythm, No jugular venous distention (JVD), No murmurs/e xtra sounds, No rub, No S3, No S4, No other Gastrointestinal: soft, nl liver, spleen, bowel sounds, distended; No non-tender, No ascites, No firm, No hepatomegaly, No mass, No rebound or guarding, No splenomegaly, No surgical scars, No tender, No other Musculoskeletal: joint tenderness, muscle tone, muscle weakness; No nl extremities to inspection, No nl gait and stance, No range of motion, No spine non-tender, No swelling, No other Extremities: normal pulses; No calf tenderness, No cyanosis, No clubbing, No edema, No pitting pedal edema, No palpable cord, No tenderness, No other 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: WRAPPER OFF II-XII intact, nl mental status (Depressed expressed thoughts that she wants to stop treatment.), nl speech (Barely arousable due to with decreased voice.), confused, lethargic (On and off.), numbness; No nl strength, No DTR's symmetric, No focal weakness, No reflexes, No unresponsive, No other Skin: nl turgor (Severely decreased turgor with folding of the skin.), rash or lesions; No diaphoresis, No ecchymosis, No laceration, No puncture, No other Lymph: nl lymph nodes; No enlarged, No nontender, No other Results Results 24hrs Laboratory Tests Test 06/09/19 05:42 White Blood Count 6.8 Red Blood Count 4.52 Hemoglobin 12.2 Hematocrit 38.4 Mean Corpuscular Volume 85.0 Mean Corpuscular Hemoglobin 27.0 L Mean Corpuscular Hemoglobin Concent 31.8 L Red Cell Distribution Width 19.6 H Platelet Count 269 # Mean Platelet Volume 11.7 H Immature Granulocytes % 0.300 Neutrophils % 68.6 Lymphocytes % 18.8 Monocytes % 9.4 Eosinophils % 2.6 Basophils % 0.3 Nucleated Red Blood Cells % 0.0 Immature Granulocytes # 0.020 Neutrophils # 4.7 Lymphocytes # 1.3 Monocytes # 0.6 Eosinophils # 0.2 Basophils # 0.0 Nucleated Red Blood Cells # 0.0 Sodium Level 143 Potassium Level 3.5 Chloride Level 105 Carbon Dioxide Level 28 Anion Gap 10 Blood Urea Nitrogen 27 H Creatinine 0.81 Est Glomerular Filtrat Rate mL/min Glucose Level 108 Calcium Level 10.0 Magnesium Level 2.4 Iron Level 95 Total Iron Binding Capacity 306 Percent Iron Saturation 31 Total Bilirubin 0.7 Direct Bilirubin 0.00 Indirect Bilirubin 0.7 Aspartate Amino Transf (AST/SGOT) 44 Alanine Aminotransferase (ALT/SGPT) 35 Alkaline Phosphatase 77 Total Protein 7.6 Albumin 4.1 Globulin 3.50 H Albumin/Globulin Ratio 1.17 Digoxin Level 0.6 L Medications Medication Current Medications Aspirin (Aspirin) 81 mg DAILY PO Last administered on 05/30/19 09:09; Admin Dose 81 MG; Start 05/27/19 at 18:30; Status Hold Clopidogrel Bisulfate (plaVIX) 75 mg DAILY PO Last administered on 05/30/19 09:07; Admin Dose 75 MG; Start 05/27/19 at 18:30; Status Hold Folic Acid (Folic Acid) 1 mg DAILY PO Last administered on 06/09/19 09:18; Admin Dose 1 MG; Start 05/27/19 at 18:30 Magnesium Oxide (Mag-Ox 400) 400 mg DAILY PO Last administered on 06/09/19 09:18; Admin Dose 400 MG; Start 05/27/19 at 18:30 Megestrol Acetate (Megace) 40 mg TID PO Last administered on 06/09/19 13:16; Admin Dose 40 MG; Start 05/27/19 at 21:00 Nystatin (Nystatin Susp) 5 ml Q4 PO Last administered on 06/09/19 21:19; Admin Dose 5 ML; Start 05/27/19 at 21:00 Sacubitril/ Valsartan (Entresto 24 Mg-26 Mg) 1 tab BID PO Last administered on 06/09/19 09:18; Admin Dose 1 TAB; Start 05/27/19 at 21:00 Ondansetron HCl (Zofran Inj) 4 mg Q4H PRN IV NAUSEA AND/OR VOMITING Last administered on 06/09/19 15:40; Admin Dose 4 MG; Start 05/27/19 at 18:30 Acetaminophen (Tylenol Tab) 500 mg Q6H PRN PO MILD PAIN(1-3)OR ELEVATED TEMP Last administered on 06/08/19 21:17; Admin Dose 500 MG; Start 05/27/19 at 18:30 Albuterol/ Ipratropium (Duoneb) 3 ml Q6H RESP THERAPY PRN HHN SHORTNESS OF BREATH Last administered on 06/04/19 19:56; Admin Dose 3 ML; Start 05/27/19 at 18:30 Miscellaneous Information (Pending [facility] Order For Wound Care) This patient meyer... PRN PRN XX WOUND CARE; Start 05/27/19 at 20:00 Digoxin (Digoxin) 0.125 mg DAILY@1300 PO Last administered on 06/09/19 13:16; Admin Dose 0.125 MG; Start 05/28/19 at 13:00 Furosemide (Lasix) 40 mg BID DIURETICS IV Last administered on 06/09/19 17:52; Admin Dose 40 MG; Start 05/29/19 at 18:00 Metoprolol Succinate (Toprol Xl) 12.5 mg DAILY PO Last administered on 06/09/19 09:19; Admin Dose 12.5 MG; Start 05/30/19 at 09:00 Levothyroxine Sodium (Synthroid) 100 mcg BEFORE BREAKFAST PO Last administered on 06/09/19 06:34; Admin Dose 100 MCG; Start 06/01/19 at 07:00 Albuterol/ Ipratropium (Duoneb) 3 ml Q8H RESP THERAPY HHN Last administered on 06/07/19 08:30; Admin Dose 3 ML; Start 06/03/19 at 00:00 Docusate Sodium (Colace Liquid Cup) 100 mg BID GTB Last administered on 06/04/19 08:49; Admin Dose 100 MG; Start 06/03/19 at 21:00 Lorazepam (Ativan) 1 mg QHS PRN PO INSOMNIA; Start 06/03/19 at 17:30 Potassium Chloride (Potassium Chloride Pwd/Soln) 8 meq DAILY GTB Last administered on 06/09/19 09:20; Admin Dose 8 MEQ; Start 06/05/19 at 09:30 Lidocaine (Lidoderm) 1 patch Q24H TD Last administered on 06/09/19 17:50; Admin Dose 1 PATCH; Start 06/09/19 at 17:00 PEDRO KRUSE MD Jun 09, 2019 21:46
--- NOTE | 2019-06-09 21:52 | PDOCDIS ---
Discharge Instructions DIAGNOSIS Discharge Diagnosis 1. S/P G-tube placement due to of Dysphagia.Ulceration of the upper esophagus with inability to eat. Unable to swallow most of the time. Regurgitating even saliva. On and off able to swallow. Severe decrease of voice with substernal pressure sensation severe respiratory distress with worsening of wheezing and inability to sleep. Unable to take medications due to above. Continue titration of the G-tube feeding rate. 2.IHD angina, new onset [place] by positive troponin series still high. Discussed with Dr. Alvarez. HX of recent PTCA with one stent and 3 balloon dilatation of narrow coronary arteries(; according to the daughter). Status post stapling of mitral valve 6 months ago in [facility] with improvement of condition immediately after the procedure but still she is having frequent hospitalizations. Although it is evident that the cause is not over drinking possibly medication noncompliance. Discussed with Dr. Alvarez. 3. Dysphagia to solids and sometimes to liquids now to everything. Refuses to eat secondary to pain.. Called Dr.David Silver; [phone] for a ENT consultation. Now on G-tube feeding at the rate of 40 cc/h. Plan to adjust after checking residual. 4. Pulmonary edema by x-ray with wheezing on admission, improved after lasix. Ejection fraction was at 25-30 %. Improved. 5. History of Hodgkin lymphoma:. Possible second malignancy in the upper third of esophagus and bronchus ;pathology results are pending. 6. Osteoarthritis with pain syndrome 7. Anxiety disorder. 8. Depression with grief reaction-s/p loss of . 9. Urinary incontinence. 10. Osteoporosis. 11. Kyphosis. 12. Postmenopausal syndrome. 13. Anemia with nl iron. 14. Brain atrophy on CT. 15. Left sphenoid sinusitis on CT. 16. Left ventricular hypertrophy. 17. Urinary incontinence with recurrent UTIs. Now with enterococcus species. 18.Cerebrovascular accident, with left facial drooling, left facial weakness, with slurred speech and dysphagia. Mild left upper extremity weakness. 19. Hypertension, now normotensive.Cardiomegaly on cxr 20. Status post left subclavian area pacemaker implantation about 3 months ago. 21. Status post mitral valve endocardial manipulation with stapling of the valves with good clinical results. 22. Recurrent episodes of V. tach now 8 complexes on a monitor and SVT; placed on the monitor by cardiology consult. 23.Weight loss mainly due to of not eating well. 24.Sleeplessness 25.Poor self expression capacity and getting worse. Talks for minutes but unable to conclude talk or be precise. 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 27. Weight loss-now she is gaining weight after starting the G-tube feeding. 28. 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 Expecting also the possibility of a second malignancy to be excluded 29. Borderline hypokalemia. Continue monitoring 30. On digoxin for atrial fibrillation current level is 0.6mg/d continue 0.125 mg daily. 31. Ischemic cardiomyopathy with low ejection fraction; as above. 32.Medication noncompliance. CONDITION [id number] Patient Condition: [id number] Guarded HOME CARE INSTRUCTIONS: 2 [id number] Diet Instructions: [id number] Bathing Restrictions: [id number] Sponge Bath FOLLOW UP/APPOINTMENTS Follow-up Plan 3 4 days after discharge entering the office or at home by primary care physician,. In [address] Alejandro In 2 weeks by [address] subassembler Dr. Alvarez. SCHOOL/WORK RELEASE May return to School/Work with: PEDRO Gomez MD Jun 09, 2019 21:52
--- NOTE | 2019-06-09 22:56 | CONS ---
Assessment/Plan Assessment/Plan Hospital Course (Demo Recall) Hodgkin lymphoma- s/p chemotherapy PT HAS HX PROGRESSIVE REFRACTOPY DIS POST CHEMO AMD IMMUNOTHERAPY, MOST RECENT PET/CT SHOWED SOME IMPROVEMENT DYSPHAGIA GI F-UP POST EGD/BX, AWAIT PATH D/W DAUGHTER KONG Anemia WITH COMPONENT ACD monitor Severe respiratory distress improving. HX IHD angina, Low LVEF dropped. Findings most consistent with mild ADHF with associated type II NSTEMI HX Pulmonary edema Osteoarthritis with pain syndrome Anxiety disorder. Depression with grief reaction-s/p loss of . Urinary incontinence. Osteoporosis. Kyphosis. Postmenopausal syndrome. Brain atrophy on CT. Left sphenoid sinusitis on CT. Left ventricular hypertrophy. Urinary incontinence. Cerebrovascular accident, with left facial drooling, left facial weakness, with slurred speech and dysphagia. Mild left upper extremity weakness.mostly corrected. Hypertension, now normotensive. HX of PTCA with one sent and 3 balloon dilatation of narrow coronary arteries(; Medication noncompliance. Consultation Date/Type/Reason Admit Date/Time May 27, 2019 at 13:49 Initial Consult Date Type of Consult [facility] Requesting Provider: PEDRO KRUSE MD Date/Time of Note DATE: 06/09/19 TIME: 22:56 24 HR Interval Summary Free Text/Dictation ALL NOTED NAD Exam/Review of Systems Exam Vitals Vital Signs Date Temp Pulse Resp B/P (MAP) Pulse Ox O2 O2 Flow FiO2 Time Delivery Rate 06/09/19 97.6 104 20 109/57 96 Nasal 20:26 (74) Cannula 06/07/19 21 18:36 Intake and Output 06/08/19 06/08/19 06/09/19 1515:00 23:00 07:00 IntakeIntake Total 600 ml 370 ml BalanceBalance 600 ml 370 ml Exam Constitutional: alert, oriented, well developed Psych: no complaints, nl mood/affect Head: normocephalic, atraumatic Eyes: nl conjunctiva, EOMI, nl lids, nl sclera, PERRL ENMT: nl external ears & nose, nl lips & teeth, nl nasal mucosa & septum Neck: supple, non-tender Respiratory: clear to auscultation, normal air movement Cardiovascular: regular rate and rhythm, nl pulses Gastrointestinal: soft, nl liver, spleen, non-tender, GT in place Musculoskeletal: nl extremities to inspection, nl gait and stance Extremities: normal pulses 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: CHIEF ORTHOPTIST II-XII intact, nl mental status, nl speech, nl strength Skin: nl turgor; No rash or lesions Lymph: nl lymph nodes Results Result Diagram: 06/09/1942 06/09/19 0542 Results 24hrs Laboratory Tests Test 06/09/19 05:42 White Blood Count 6.8 Red Blood Count 4.52 Hemoglobin 12.2 Hematocrit 38.4 Mean Corpuscular Volume 85.0 Mean Corpuscular Hemoglobin 27.0 L Mean Corpuscular Hemoglobin Concent 31.8 L Red Cell Distribution Width 19.6 H Platelet Count 269 # Mean Platelet Volume 11.7 H Immature Granulocytes % 0.300 Neutrophils % 68.6 Lymphocytes % 18.8 Monocytes % 9.4 Eosinophils % 2.6 Basophils % 0.3 Nucleated Red Blood Cells % 0.0 Immature Granulocytes # 0.020 Neutrophils # 4.7 Lymphocytes # 1.3 Monocytes # 0.6 Eosinophils # 0.2 Basophils # 0.0 Nucleated Red Blood Cells # 0.0 Sodium Level 143 Potassium Level 3.5 Chloride Level 105 Carbon Dioxide Level 28 Anion Gap 10 Blood Urea Nitrogen 27 H Creatinine 0.81 Est Glomerular Filtrat Rate mL/min Glucose Level 108 Calcium Level 10.0 Magnesium Level 2.4 Iron Level 95 Total Iron Binding Capacity 306 Percent Iron Saturation 31 Total Bilirubin 0.7 Direct Bilirubin 0.00 Indirect Bilirubin 0.7 Aspartate Amino Transf (AST/SGOT) 44 Alanine Aminotransferase (ALT/SGPT) 35 Alkaline Phosphatase 77 Total Protein 7.6 Albumin 4.1 Globulin 3.50 H Albumin/Globulin Ratio 1.17 Digoxin Level 0.6 L Medications Medication Current Medications Aspirin (Aspirin) 81 mg DAILY PO Last administered on 05/30/19 09:09; Admin Dose 81 MG; Start 05/27/19 at 18:30; Status Hold Clopidogrel Bisulfate (plaVIX) 75 mg DAILY PO Last administered on 05/30/19 09:07; Admin Dose 75 MG; Start 05/27/19 at 18:30; Status Hold Folic Acid (Folic Acid) 1 mg DAILY PO Last administered on 06/09/19 09:18; Admin Dose 1 MG; Start 05/27/19 at 18:30 Magnesium Oxide (Mag-Ox 400) 400 mg DAILY PO Last administered on 06/09/19 09:18; Admin Dose 400 MG; Start 05/27/19 at 18:30 Megestrol Acetate (Megace) 40 mg TID PO Last administered on 06/09/19 13:16; Admin Dose 40 MG; Start 05/27/19 at 21:00 Nystatin (Nystatin Susp) 5 ml Q4 PO Last administered on 06/09/19 21:19; Admin Dose 5 ML; Start 05/27/19 at 21:00 Sacubitril/ Valsartan (Entresto 24 Mg-26 Mg) 1 tab BID PO Last administered on 06/09/19 09:18; Admin Dose 1 TAB; Start 05/27/19 at 21:00 Ondansetron HCl (Zofran Inj) 4 mg Q4H PRN IV NAUSEA AND/OR VOMITING Last administered on 06/09/19 15:40; Admin Dose 4 MG; Start 05/27/19 at 18:30 Acetaminophen (Tylenol Tab) 500 mg Q6H PRN PO MILD PAIN(1-3)OR ELEVATED TEMP Last administered on 06/08/19 21:17; Admin Dose 500 MG; Start 05/27/19 at 18:30 Albuterol/ Ipratropium (Duoneb) 3 ml Q6H RESP THERAPY PRN HHN SHORTNESS OF BREATH Last administered on 06/04/19 19:56; Admin Dose 3 ML; Start 05/27/19 at 18:30 Miscellaneous Information (Pending [facility] Order For Wound Care) This patient meyer... PRN PRN XX WOUND CARE; Start 05/27/19 at 20:00 Digoxin (Digoxin) 0.125 mg DAILY@1300 PO Last administered on 06/09/19 13:16; Admin Dose 0.125 MG; Start 05/28/19 at 13:00 Furosemide (Lasix) 40 mg BID DIURETICS IV Last administered on 06/09/19 17:52; Admin Dose 40 MG; Start 05/29/19 at 18:00 Metoprolol Succinate (Toprol Xl) 12.5 mg DAILY PO Last administered on 06/09/19 09:19; Admin Dose 12.5 MG; Start 05/30/19 at 09:00 Levothyroxine Sodium (Synthroid) 100 mcg BEFORE BREAKFAST PO Last administered on 06/09/19 06:34; Admin Dose 100 MCG; Start 06/01/19 at 07:00 Albuterol/ Ipratropium (Duoneb) 3 ml Q8H RESP THERAPY HHN Last administered on 06/07/19 08:30; Admin Dose 3 ML; Start 06/03/19 at 00:00 Docusate Sodium (Colace Liquid Cup) 100 mg BID GTB Last administered on 06/04/19 08:49; Admin Dose 100 MG; Start 06/03/19 at 21:00 Lorazepam (Ativan) 1 mg QHS PRN PO INSOMNIA; Start 06/03/19 at 17:30 Potassium Chloride (Potassium Chloride Pwd/Soln) 8 meq DAILY GTB Last administered on 06/09/19 09:20; Admin Dose 8 MEQ; Start 06/05/19 at 09:30 Lidocaine (Lidoderm) 1 patch Q24H TD Last administered on 06/09/19 17:50; Admin Dose 1 PATCH; Start 06/09/19 at 17:00 KALPANA ANGELES MD Jun 09, 2019 22:56
[2019-06-10 00:30] VITALS: BP 104/59; PULSE 100; RESP 20
[2019-06-10] MEDS: ALBUTEROL/IPRATROPIUM (NEB) 3 ML AMP HHN SCH ×3 (01:10→16:00)
[2019-06-10] MEDS: NYSTATIN SUSP 5 ML CUP PO SCH ×6 (01:14→21:31)
[2019-06-10 04:06] VITALS: BP 105/59; PULSE 89; RESP 20
[2019-06-10] MEDS: FUROSEMIDE 40 MG INJ IV SCH (05:56)
[2019-06-10] MEDS: LEVOTHYROXINE 100 MCG TAB PO SCH (05:57)
[2019-06-10 07:38] VITALS: BP 99/55; PULSE 85; RESP 17
[2019-06-10] MEDS: DOCUSATE SODIUM 10 MG/ML (10ML CUP) GTB SCH ×2 (09:00→21:00)
--- NOTE | 2019-06-10 09:20 | CONS ---
Assessment/Plan Assessment/Plan Hospital Course (Demo Recall) 73 yo female Pt is tolerating tube feeds at 40cc/hr. Intermittent c/o nausea alleviated with zofran. Per RN pt had bm yesterday. 1. Dysphagia - Patient has ulcerated lesion in the proximal esophagus starting from cricopharyngeal sphincter with narrowing of the lumen and this was confirmed on the CT scan of the neck 2. Weight loss secondary to #1 3. Cardiomyopathy with ejection fraction of 20% to 25%. 4. History of Hodgkin's lymphoma. 5. Depression. 6. Kyphosis. 7. Hypertension. 8. Status post left subclavian pacemaker implantation. 9. H/O CVA 10. 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 Can not place esophageal stent. Pt examined and plan of care d/w Dr. Alejandro Consultation Date/Type/Reason Admit Date/Time May 27, 2019 at 13:49 Initial Consult Date Requesting Provider: PEDRO KRUSE MD Date/Time of Note DATE: 06/10/19 TIME: 09:12 Exam/Review of Systems Exam Vitals Vital Signs Date Temp Pulse Resp B/P (MAP) Pulse Ox O2 O2 Flow FiO2 Time Delivery Rate 06/10/19 97.6 85 17 99/55 (70) 93 07:38 06/10/19 Nasal 04:06 Cannula 06/10/19 21 01:12 Intake and Output 06/09/19 06/09/19 06/10/19 1515:00 23:00 07:00 IntakeIntake Total 700 ml BalanceBalance 700 ml Constitutional: alert, oriented Psych: no complaints Head: normocephalic Eyes: PERRL Respiratory: clear to auscultation Cardiovascular: regular rate and rhythm Gastrointestinal: soft, non-tender Extremities: normal pulses 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: nl mental status Results Result Diagram: 06/09/19 0542 06/09/19 0542 Medications Medication Current Medications Aspirin (Aspirin) 81 mg DAILY PO Last administered on 05/30/19at 09:09; Admin Do se 81 MG; Start 05/27/19 at 18:30; Status Hold Clopidogrel Bisulfate (plaVIX) 75 mg DAILY PO Last administered on 7/18/19at 09:07; Admin Dose 75 MG; Start 05/27/19 at 18:30; Status Hold Folic Acid (Folic Acid) 1 mg DAILY PO Last administered on 06/09/19 09:18; Admin Dose 1 MG; Start 05/27/19 at 18:30 Magnesium Oxide (Mag-Ox 400) 400 mg DAILY PO Last administered on 06/09/19 09:18; Admin Dose 400 MG; Start 05/27/19 at 18:30 Megestrol Acetate (Megace) 40 mg TID PO Last administered on 06/09/19 13:16; Admin Dose 40 MG; Start 05/27/19 at 21:00 Nystatin (Nystatin Susp) 5 ml Q4 PO Last administered on 06/10/19 01:14; Admin Dose 5 ML; Start 05/27/19 at 21:00 Sacubitril/ Valsartan (Entresto 24 Mg-26 Mg) 1 tab BID PO Last administered on 06/09/19 09:18; Admin Dose 1 TAB; Start 05/27/19 at 21:00 Ondansetron HCl (Zofran Inj) 4 mg Q4H PRN IV NAUSEA AND/OR VOMITING Last administered on 06/09/19 15:40; Admin Dose 4 MG; Start 05/27/19 at 18:30 Acetaminophen (Tylenol Tab) 500 mg Q6H PRN PO MILD PAIN(1-3)OR ELEVATED TEMP Last administered on 06/08/19 21:17; Admin Dose 500 MG; Start 05/27/19 at 18:30 Albuterol/ Ipratropium (Duoneb) 3 ml Q6H RESP THERAPY PRN HHN SHORTNESS OF BREATH Last administered on 06/04/19 19:56; Admin Dose 3 ML; Start 05/27/19 at 18:30 Miscellaneous Information (Pending [facility] Order For Wound Care) This patient meyer... PRN PRN XX WOUND CARE; Start 05/27/19 at 20:00 Digoxin (Digoxin) 0.125 mg DAILY@1300 PO Last administered on 06/09/19 13:16; Admin Dose 0.125 MG; Start 05/28/19 at 13:00 Furosemide (Lasix) 40 mg BID DIURETICS IV Last administered on 06/09/19 17:52; Admin Dose 40 MG; Start 05/29/19 at 18:00 Metoprolol Succinate (Toprol Xl) 12.5 mg DAILY PO Last administered on 06/09/19 09:19; Admin Dose 12.5 MG; Start 05/30/19 at 09:00 Levothyroxine Sodium (Synthroid) 100 mcg BEFORE BREAKFAST PO Last administered on 06/09/19 06:34; Admin Dose 100 MCG; Start 06/01/19 at 07:00 Albuterol/ Ipratropium (Duoneb) 3 ml Q8H RESP THERAPY HHN Last administered on 06/10/19 01:10; Admin Dose 3 ML; Start 06/03/19 at 00:00 Docusate Sodium (Colace Liquid Cup) 100 mg BID GTB Last administered on 06/04/19 08:49; Admin Dose 100 MG; Start 06/03/19 at 21:00 Lorazepam (Ativan) 1 mg QHS PRN PO INSOMNIA; Start 06/03/19 at 17:30 Potassium Chloride (Potassium Chloride Pwd/Soln) 8 meq DAILY GTB Last administered on 06/09/19 09:20; Admin Dose 8 MEQ; Start 06/05/19 at 09:30 Lidocaine (Lidoderm) 1 patch Q24H TD Last administered on 06/09/19 17:50; Admin Dose 1 PATCH; Start 06/09/19 at 17:00 ERIN SUAREZ Jun 10, 2019 09:20
[2019-06-10] MEDS: POTASSIUM CHLORIDE 20 MEQ POWDER FOR ORAL SOLN GTB SCH (09:24)
[2019-06-10] MEDS: SACUBITRIL/VALSARTAN (24mg-26mg) TABLET PO SCH ×2 (09:24→21:00)
[2019-06-10] MEDS: FOLIC ACID 1 MG TAB PO SCH (09:27)
[2019-06-10] MEDS: MEGESTROL 40 MG TAB PO SCH ×3 (09:27→21:00)
[2019-06-10] MEDS: METOPROLOL (XL) 25 MG TAB PO SCH (09:27)
[2019-06-10] MEDS: MAGNESIUM OXIDE 400 MG TAB PO SCH (09:27)
--- NOTE | 2019-06-10 09:52 | DS ---
Date/Time of Note Date/Time of Note DATE: 06/10/19 TIME: 09:46 Discharge Summary Admission/Discharge Info Admit Date/Time May 27, 2019 at 13:49 Discharge Date/Time Cough with increased sputum production which is mainly saliva which she is unable to swallow. Patient likes to take ice chips but she is struggling to keep it in the mouth but it gives her comfort but unfortunately increased amount of secretions. We are seeing the patient today she was in almost Trendelenburg position according to her she feels calm comfortable in that position. Explained the necessity of being upright to facilitate by gravity gastric emptying and helping to prevent regurgitation. At the time of this dictation the results of pathology are not available. The patient was informed and family was informed. I discharge the patient but they will hold discharge until the results are ready. After the biopsy of esophageal mass I would like also to relay consult ENT specialist Dr. Silver for new assessment and possible new action and then decide to discharge. The patient is very weak becoming tachycardic easily heart rate yesterday reach to the level of 150 even with mild physical tension simple walking until the toilet. Patient will be given a wheelchair. Patient continues to receive a treatment for lymphoma along with the CHF with low ejection fraction. Her poor exercise tolerance needs physical therapy and Occupational Therapy. Final decision will be made after the pathology results are available. Please see the discharge diagnostic list. Discharge Diagnosis 1. S/P G-tube placement due to of Dysphagia.Ulceration of the upper esophagus with inability to eat. Unable to swallow most of the time. Regurgitating even saliva. On and off able to swallow. Severe decrease of voice with substernal pressure sensation severe respiratory distress with worsening of wheezing and inability to sleep. Unable to take medications due to above. Continue titration of the G-tube feeding rate. 2.IHD angina, new onset IN by positive troponin series still high. Discussed with Dr. Alvarez. HX of recent PTCA with one stent and 3 balloon dilatation of narrow coronary arteries(; according to the daughter). Status post stapling of mitral valve 6 months ago in [facility] with improvement of condition immediately after the procedure but still she is having frequent hospitalizations. Although it is evident that the cause is not over drinking possibly medication noncompliance. Discussed with Dr. Alvarez. 3. Dysphagia to solids and sometimes to liquids now to everything. Refuses to eat secondary to pain.. Called Dr.David Silver; [phone] for a ENT consultation. Now on G-tube feeding at the rate of 40 cc/h. Plan to adjust after checking residual. 4. Pulmonary edema by x-ray with wheezing on admission, improved after lasix. Ejection fraction was at 25-30 %. Improved. 5. History of Hodgkin lymphoma:. Possible second malignancy in the upper third of esophagus and bronchus ;pathology results are pending. 6. Osteoarthritis with pain syndrome 7. Anxiety disorder. 8. Depression with grief reaction-s/p loss of . 9. Urinary incontinence. 10. Osteoporosis. 11. Kyphosis. 12. Postmenopausal syndrome. 13. Anemia with nl iron. 14. Brain atrophy on CT. 15. Left sphenoid sinusitis on CT. 16. Left ventricular hypertrophy. 17. Urinary incontinence with recurrent UTIs. Now with enterococcus species. 18.Cerebrovascular accident, with left facial drooling, left facial weakness, with slurred speech and dysphagia. Mild left upper extremity weakness. 19. Hypertension, now normotensive.Cardiomegaly on cxr 20. Status post left subclavian area pacemaker implantation about 3 months ago. 21. Status post mitral valve endocardial manipulation with stapling of the valves with good clinical results. 22. Recurrent episodes of V. tach now 8 complexes on a monitor and SVT; placed on the monitor by cardiology consult. 23.Weight loss mainly due to of not eating well. 24.Sleeplessness 25.Poor self expression capacity and getting worse. Talks for minutes but unable to conclude talk or be precise. 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 27. Weight loss-now she is gaining weight after starting the G-tube feeding. 28. 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 Expecting also the possibility of a second malignancy to be excluded 29. Borderline hypokalemia. Continue monitoring 30. On digoxin for atrial fibrillation current level is 0.6mg/d continue 0.125 mg daily. 31. Ischemic cardiomyopathy with low ejection fraction; as above. 32.Medication noncompliance. Hx of Present Illness History was taken from the son of patient due to of difficulty with patient to be able to talk. But the patient is able to express some thoughts and reports. For the last week she is unable to eat normally last 3 days she is totally unable to eat. But 5 to 7 days ago her voice got changed and now her voice is severely decreased in intensity. She is having the nausea and vomiting even saliva is difficult to swallow. She lost weight. He is having shortness of breath and palpitations. She was unable to take her medications. 1 week from now he was she was scheduled to undergo upper GI study in [facility]. I think it would be more prudent to complete the studies in the hospital while her condition is deteriorating. Denies fever and chills denies nausea vomiting. Expressed told that she does not want to leave she does not want any procedure. Discussed with the son decision was made to go ahead and do whatever feel reasonable and necessary. Hospital Course See above. Home Meds Active Scripts Lidocaine (Lidocaine) 1 Each Adh..patch, 1 PATCH TD Q24H for 30 Days, #60 Prov:PRINCESS WHITAKER MD 06/09/19 Sacubitril/Valsartan (Entresto 24 mg-26 mg Tablet) 1 Each Tablet, 1 TAB PO BID for 30 Days, #60 TAB Prov:PRINCESS WHITAKER MD 06/09/19 Metoprolol Succinate* (Toprol XL*) 25 Mg Tab.sr.24h, 12.5 MG PO DAILY for 30 Days, #60 Prov:PRINCESS WHITAKER MD 06/09/19 Fenofibrate* (Fenofibrate*) 200 Mg Cap, 200 MG PO DAILY for 30 Days, #30 CAP Prov:PRINCESS WHITAKER MD 09/16/18 Digoxin* (Lanoxin*) 0.125 Mg Tablet, 0.125 MG PO DAILY for 30 Days, #30 TAB Prov:PRINCESS WHITAKER MD 09/16/18 Potassium Chloride* (Potassium Chloride*) 8 Meq Capsule.er, 8 MEQ PO DAILY for 30 Days, #30 CAP Prov:PRINCESS WHITAKER MD 09/16/18 Isosorbide Mononitrate* (Isosorbide Mononitrate*) 30 Mg Tab.er.24h, 30 MG PO DAILY for 30 Days, #30 TAB Prov:PRINCESS WHITAKER MD 09/16/18 Clopidogrel Bisulfate (Clopidogrel) 75 Mg Tablet, 75 MG PO DAILY, #30 TAB Prov:PRINCESS WHITAKER MD 09/16/18 Folic Acid* (Folic Acid*) 1 Mg Tablet, 1 MG PO DAILY for 30 Days, #30 TAB Prov:PRINCESS WHITAKER MD 09/16/18 Aspirin* (Aspirin* Chew) 81 Mg Tab.chew, 81 MG PO DAILY for 30 Days, #30 TAB.CHEW Prov:PRINCESS WHITAKER MD 09/16/18 Reported Medications Nystatin (Nystatin) 100,000 Unit/1 Ml Oral.susp, 5 ML PO Q4, #60 ML 05/27/19 Acetaminophen with Codeine (Acetaminop-Codeine 120-12 mg/5) 118 Ml Solution, 5 ML PO Q4 for PAIN 05/27/19 Megestrol Acetate* (Megestrol Acetate*) 40 Mg Tablet, 40 MG PO TID for APPETITE, TAB 05/27/19 Furosemide* (Furosemide*) 40 Mg Tablet, 40 MG PO BID, TAB 05/27/19 Levothyroxine Sodium* (Levothyroxine Sodium*) 125 Mcg Tablet, 125 MCG PO BEFORE BREAKFAST, #30 TAB 02/11/19 Esomeprazole Mag Trihydrate (Nexium) 40 Mg Capsule.dr, 40 MG PO DAILY, #30 CAP 02/11/19 Magnesium Oxide* (Magnesium Oxide*) 400 Mg Tablet, 400 MG PO DAILY, TAB 02/11/19 Follow-up Plan 3 4 days after discharge entering the office or at home by primary care physician,. In [address] Alejandro In 2 weeks by rail express clerk Dr. Alvarez. Primary Care Provider Princess Whitaker MD Time spent on discharge: > 30 minutes Pending Labs Pathology. PRINCESS WHITAKER MD Jun 10, 2019 09:52
--- NOTE | 2019-06-10 10:54 | CONS ---
Assessment/Plan Assessment/Plan Assessment/Plan (Daily) Assessment and recommendations; 1. Patient admitted with dysphagia with possibility of esophageal cancer. Possibly tracheal esophageal fistula. Patient however from a pulmonary perspective is quite a symptom medic. Feels 2. Status post EGD with biopsy of the mass lesion. Results are pending. 3. Other comorbidities include history of prior non-Hodgkin's lymphoma, hypertension and hypothyroidism. Continue current supportive care. Agree with discharge. Further recommendations once biopsy results are obtained. If the lesion turns out to be malignant, patient would benefit from a Gastrografin esophagogram. Further recommendations per oncologist once biopsy results are obtained. Consultation Date/Type/Reason Admit Date/Time May 27, 2019 at 13:49 Date of Consultation: Jun 10, 2019 Type of Consult Pulmonary Patient is a 73-year-old lady who was admitted on the of this month with complaints of dysphagia. Patient has been diagnosed with possible esophageal mass and underwent EGD, biopsy results are pending. There is concern for possible development of tracheal esophageal fistula. Patient complains of very scant cough but denies any shortness of breath, chest pain, coughing, wheezing. By the time I saw her in the room, patient was sitting comfortably and did not appear to be in any distress. Past medical history; 1. History of non-Hodgkin's lymphoma. 2. History of hypertension. 3. Hypothyroidism. 4. History of cardiac arrhythmia. Medications; reviewed. Allergies; vancomycin. Social history; patient never smoked. Family history; noncontributory. Patient does have a supportive family. 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 Review of systems; denies any headache, complains of dysphagia. Denies any chest pain, complains of very scant cough. Denies any wheezing. Any abdominal pain, nausea vomiting. Has lost some weight. Denies any arthritis symptoms. General exam; elderly female, awake alert, currently in no distress. Date/Time of Note DATE: 06/10/19 TIME: 10:50 Past Medical History Medical History: angina, congestive heart failure, coronary artery disease, diabetes, diverticulitis, GERD, GI bleed, high cholesterol, hypertension, hyperthyroid, hypothyroid, urinary tract infection Home Meds Active Scripts Lidocaine (Lidocaine) 1 Each Adh..patch, 1 PATCH TD Q24H for 30 Days, #60 Prov:PEDRO KRUSE MD 06/09/19 Sacubitril/Valsartan (Entresto 24 mg-26 mg Tablet) 1 Each Tablet, 1 TAB PO BID for 30 Days, #60 TAB Prov:PEDRO KRUSE MD 06/09/19 Metoprolol Succinate* (Toprol XL*) 25 Mg Tab.sr.24h, 12.5 MG PO DAILY for 30 Days, #60 Prov:PEDRO KRUSE MD 06/09/19 Fenofibrate* (Fenofibrate*) 200 Mg Cap, 200 MG PO DAILY for 30 Days, #30 CAP Prov:PEDRO KRUSE MD 09/16/18 Digoxin* (Lanoxin*) 0.125 Mg Tablet, 0.125 MG PO DAILY for 30 Days, #30 TAB Prov:PEDRO KRUSE MD 09/16/18 Potassium Chloride* (Potassium Chloride*) 8 Meq Capsule.er, 8 MEQ PO DAILY for 30 Days, #30 CAP Prov:PEDRO KRUSE MD 09/16/18 Isosorbide Mononitrate* (Isosorbide Mononitrate*) 30 Mg Tab.er.24h, 30 MG PO DAILY for 30 Days, #30 TAB Prov:PEDRO KRUSE MD 09/16/18 Clopidogrel Bisulfate (Clopidogrel) 75 Mg Tablet, 75 MG PO DAILY, #30 TAB Prov:PEDRO KRUSE MD 09/16/18 Folic Acid* (Folic Acid*) 1 Mg Tablet, 1 MG PO DAILY for 30 Days, #30 TAB Prov:PEDRO KRUSE MD 09/16/18 Aspirin* (Aspirin* Chew) 81 Mg Tab.chew, 81 MG PO DAILY for 30 Days, #30 TAB.CHEW Prov:PEDRO KRUSE MD 09/16/18 Reported Medications Nystatin (Nystatin) 100,000 Unit/1 Ml Oral.susp, 5 ML PO Q4, #60 ML 05/27/19 Acetaminophen with Codeine (Acetaminop-Codeine 120-12 mg/5) 118 Ml Solution, 5 ML PO Q4 for PAIN 05/27/19 Megestrol Acetate* (Megestrol Acetate*) 40 Mg Tablet, 40 MG PO TID for APPETITE, TAB 05/27/19 Furosemide* (Furosemide*) 40 Mg Tablet, 40 MG PO BID, TAB 05/27/19 Levothyroxine Sodium* (Levothyroxine Sodium*) 125 Mcg Tablet, 125 MCG PO BEFORE BREAKFAST, #30 TAB 02/11/19 Esomeprazole Mag Trihydrate (Nexium) 40 Mg Capsule.dr, 40 MG PO DAILY, #30 CAP 02/11/19 Magnesium Oxide* (Magnesium Oxide*) 400 Mg Tablet, 400 MG PO DAILY, TAB 02/11/19 Medications Current Medications Aspirin (Aspirin) 81 mg DAILY PO Last administered on 05/30/19 09:09; Admin Dose 81 MG; Start 05/27/19 at 18:30; Status Hold Clopidogrel Bisulfate (plaVIX) 75 mg DAILY PO Last administered on 05/30/19 09:07; Admin Dose 75 MG; Start 05/27/19 at 18:30; Status Hold Folic Acid (Folic Acid) 1 mg DAILY PO Last administered on 06/10/19 09:27; Admin Dose 1 MG; Start 05/27/19 at 18:30 Magnesium Oxide (Mag-Ox 400) 400 mg DAILY PO Last administered on 06/10/19 09:27; Admin Dose 400 MG; Start 05/27/19 at 18:30 Megestrol Acetate (Megace) 40 mg TID PO Last administered on 06/10/19 09:27; Admin Dose 40 MG; Start 05/27/19 at 21:00 Nystatin (Nystatin Susp) 5 ml Q4 PO Last administered on 06/10/19 09:31; Admin Dose 5 ML; Start 05/27/19 at 21:00 Sacubitril/ Valsartan (Entresto 24 Mg-26 Mg) 1 tab BID PO Last administered on 06/10/19 09:24; Admin Dose 1 TAB; Start 05/27/19 at 21:00 Ondansetron HCl (Zofran Inj) 4 mg Q4H PRN IV NAUSEA AND/OR VOMITING Last administered on 06/09/19 15:40; Admin Dose 4 MG; Start 05/27/19 at 18:30 Acetaminophen (Tylenol Tab) 500 mg Q6H PRN PO MILD PAIN(1-3)OR ELEVATED TEMP Last administered on 06/08/19 21:17; Admin Dose 500 MG; Start 05/27/19 at 18:30 Albuterol/ Ipratropium (Duoneb) 3 ml Q6H RESP THERAPY PRN HHN SHORTNESS OF LEATHA ATH Last administered on 06/04/19 19:56; Admin Dose 3 ML; Start 05/27/19 at 18:30 Miscellaneous Information (Pending [facility] Order For Wound Care) This patient meyer... PRN PRN XX WOUND CARE; Start 05/27/19 at 20:00 Digoxin (Digoxin) 0.125 mg DAILY@1300 PO Last administered on 06/09/19 13:16; Admin Dose 0.125 MG; Start 05/28/19 at 13:00 Furosemide (Lasix) 40 mg BID DIURETICS IV Last administered on 06/09/19 17:52; Admin Dose 40 MG; Start 05/29/19 at 18:00 Metoprolol Succinate (Toprol Xl) 12.5 mg DAILY PO Last administered on 06/10/19 09:27; Admin Dose 12.5 MG; Start 05/30/19 at 09:00 Levothyroxine Sodium (Synthroid) 100 mcg BEFORE BREAKFAST PO Last administered on 06/09/19 06:34; Admin Dose 100 MCG; Start 06/01/19 at 07:00 Albuterol/ Ipratropium (Duoneb) 3 ml Q8H RESP THERAPY HHN Last administered on 06/10/19 01:10; Admin Dose 3 ML; Start 06/03/19 at 00:00 Docusate Sodium (Colace Liquid Cup) 100 mg BID GTB Last administered on 06/04/19 08:49; Admin Dose 100 MG; Start 06/03/19 at 21:00 Lorazepam (Ativan) 1 mg QHS PRN PO INSOMNIA; Start 06/03/19 at 17:30 Potassium Chloride (Potassium Chloride Pwd/Soln) 8 meq DAILY GTB Last administered on 06/10/19 09:24; Admin Dose 8 MEQ; Start 06/05/19 at 09:30 Lidocaine (Lidoderm) 1 patch Q24H TD Last administered on 06/09/19 17:50; Admin Dose 1 PATCH; Start 06/09/19 at 17:00 Allergies: Coded Allergies: vancomycin (Verified Allergy, Mild, REDNESS AND ITCHING, 03/20/18) Past Surgical History Past Surgical Hx: angioplasty Social History Alcohol Use: none Smoking Status: Never smoker Drug Use: none Exam/Review of Systems Exam Vitals Vital Signs Date Temp Pulse Resp B/P (MAP) Pulse Ox O2 O2 Flow FiO2 Time Delivery Rate 06/10/19 97.6 85 17 99/55 (70) 93 07:38 06/10/19 Nasal 04:06 Cannula 06/10/19 21 01:12 Intake and Output 06/09/19 06/09/19 06/10/19 1515:00 23:00 07:00 IntakeIntake Total 700 ml BalanceBalance 700 ml Exam H EENT exam; supple neck, no JVD. No lymphadenopathy. Midline trachea. No thyromegaly. Patient is edentulous and has dentures in place. Chest exam; clear to auscultation. S1-S2 audible, no murmurs. Regular rhythm. Abdomen exam; soft, no organomegaly. Bowel sounds audible. Extremity exam; no peripheral edema clubbing. ENVIRONMENTAL ENGINEERING INTERN exam; no focal deficit. Results Result Diagram: 06/09/19 0542 06/09/1943 Medications Medication Current Medications Aspirin (Aspirin) 81 mg DAILY PO Last administered on 05/30/19 09:09; Admin Dose 81 MG; Start 05/27/19 at 18:30; Status Hold Clopidogrel Bisulfate (plaVIX) 75 mg DAILY PO Last administered on 05/30/19 09:07; Admin Dose 75 MG; Start 05/27/19 at 18:30; Status Hold Folic Acid (Folic Acid) 1 mg DAILY PO Last administered on 06/10/19 09:27; Admin Dose 1 MG; Start 05/27/19 at 18:30 Magnesium Oxide (Mag-Ox 400) 400 mg DAILY PO Last administered on 06/10/19 09:27; Admin Dose 400 MG; Start 05/27/19 at 18:30 Megestrol Acetate (Megace) 40 mg TID PO Last administered on 06/10/19 09:27; Admin Dose 40 MG; Start 05/27/19 at 21:00 Nystatin (Nystatin Susp) 5 ml Q4 PO Last administered on 06/10/19 09:31; Admin Dose 5 ML; Start 05/27/19 at 21:00 Sacubitril/ Valsartan (Entresto 24 Mg-26 Mg) 1 tab BID PO Last administered on 06/10/19 09:24; Admin Dose 1 TAB; Start 05/27/19 at 21:00 Ondansetron HCl (Zofran Inj) 4 mg Q4H PRN IV NAUSEA AND/OR VOMITING Last administered on 06/09/19 15:40; Admin Dose 4 MG; Start 05/27/19 at 18:30 Acetaminophen (Tylenol Tab) 500 mg Q6H PRN PO MILD PAIN(1-3)OR ELEVATED TEMP Last administered on 06/08/19 21:17; Admin Dose 500 MG; Start 05/27/19 at 18:30 Albuterol/ Ipratropium (Duoneb) 3 ml Q6H RESP THERAPY PRN HHN SHORTNESS OF BREATH Last administered on 06/04/19 19:56; Admin Dose 3 ML; Start 05/27/19 at 18:30 Miscellaneous Information (Pending [facility] Order For Wound Care) This patient meyer... PRN PRN XX WOUND CARE; Start 05/27/19 at 20:00 Digoxin (Digoxin) 0.125 mg DAILY@1300 PO Last administered on 06/09/19 13:16; Admin Dose 0.125 MG; Start 05/28/19 at 13:00 Furosemide (Lasix) 40 mg BID DIURETICS IV Last administered on 06/09/19 17:52; Admin Dose 40 MG; Start 05/29/19 at 18:00 Metoprolol Succinate (Toprol Xl) 12.5 mg DAILY PO Last administered on 06/10/19 09:27; Admin Dose 12.5 MG; Start 05/30/19 at 09:00 Levothyroxine Sodium (Synthroid) 100 mcg BEFORE BREAKFAST PO Last administered on 06/09/19 06:34; Admin Dose 100 MCG; Start 06/01/19 at 07:00 Albuterol/ Ipratropium (Duoneb) 3 ml Q8H RESP THERAPY HHN Last administered on 06/10/19 01:10; Admin Dose 3 ML; Start 06/03/19 at 00:00 Docusate Sodium (Colace Liquid Cup) 100 mg BID GTB Last administered on 06/04/19 08:49; Admin Dose 100 MG; Start 06/03/19 at 21:00 Lorazepam (Ativan) 1 mg QHS PRN PO INSOMNIA; Start 06/03/19 at 17:30 Potassium Chloride (Potassium Chloride Pwd/Soln) 8 meq DAILY GTB Last administered on 06/10/19at 09:24; Admin Dose 8 MEQ; Start 06/05/19 at 09:30 Lidocaine (Lidoderm) 1 patch Q24H TD Last administered on 06/09/19at 17:50; Admin Dose 1 PATCH; Start 06/09/19 at 17:00 JAZZMINE BILL Jun 10, 2019 10:54
--- NOTE | 2019-06-10 11:22 | CONS ---
Assessment/Plan Assessment/Plan Hospital Course (Demo Recall) IMPRESSION: 1. Preoperative evaluation prior to endoscopy for evaluation of the patient's dysphagia and odynophagia, in a patient that has a severely depressed ejection fraction, mild infiltrates on her chest x-ray but not in gross decompensated congestive heart failure, able to lie flat with good saturations and a recent catheterization in April revealing patent stents.- Now post-op s/p endoscopy with findings of esophageal mass. Now postop s/p G tube placement 2. Cardiomyopathy with severely depressed left ventricular ejection fraction. 3. Congestive heart failure, systolic, [id number]. 4. Dysphagia and odynophagia now s/p G tube 5. Vocal cord paresis. 6. Hypothyroidism. 7. History of percutaneous transluminal coronary angioplasty and stent placement, patent via catheterization 04/2019, with most recent stents actually placed in 2016, with a type 2 non-ST elevated myocardial infarction prior to last catheterization, and a stress test 02/2019, revealing no reversible ischemia with ejection fraction of 19%. 8. [id number]. 9. Lymphoma Hodgkin's ongoing status post chemotherapy. 10. History of cerebrovascular accident. 11. Hypertension. 12. Dyslipidemia. 13. Hypothyroidism. 14. Urinary incontinence. 15. Psychiatric disorder. 16. Nonsustained ventricular tachycardia-no recurrence, neg trop x 3 17. H/O implantable cardioverter-defibrillator. Recc: -Tele -serial ecg's -Contineu toprol/entresto as tolerated and as patient will comply thru G tube at this time -continue digoxin as patient will comply -Now s/p repeat Bx ? ok to resume asa/plavix, f/u pathology -Continue lasix diuresis but conisder change to PO -s/p d/c imdur given marginal BP Consultation Date/Type/Reason Admit Date/Time May 27, 2019 at 13:49 Initial Consult Date 05/29/19 Type of Consult Cardiology Reason for Consultation ileana Requesting Provider: PEDRO KRUSE MD Date/Time of Note DATE: 06/10/19 TIME: 11:19 Exam/Review of Systems Vital Signs Vitals Vital Signs Date Temp Pulse Resp B/P (MAP) Pulse Ox O2 O2 Flow FiO2 Time Delivery Rate 06/10/19 97.6 85 17 99/55 (70) 93 07:38 06/10/19 Nasal 04:06 Cannula 06/10/19 21 01:12 Intake and Output 06/09/19 06/09/19 06/10/19 1515:00 23:00 07:00 IntakeIntake Total 700 ml BalanceBalance 700 ml Exam Exam Review of Systems: CONSTITUTIONAL: No fevers, chills. PULMONARY: No sob CARDIOVASCULAR: No chest pain/palpitations GASTROINTESTINAL: dysphagia/odynophagia GENITOURINARY: No hematuria/dysuria. MUSCULOSKELETAL: No myagias/arthalgias. PSYCHIATRIC: The patient denies depression. NEUROLOGIC: No weakness Constitutional: alert Psych: no complaints Head: normocephalic ENMT: mucosa pink and moist Neck: supple, jvd (9 cm water) Respiratory: diminished breath sounds (at baes/B) Cardiovascular: regular rate and rhythm Gastrointestinal: soft, non-tender Musculoskeletal: muscle weakness (generalized) Extremities: edema (none) 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: other (No focal deficits) Labs Result Diagram: 06/09/19 0542 06/09/19 0542 Medications Medications Current Medications Aspirin (Aspirin) 81 mg DAILY PO Last administered on 05/30/19 09:09; Admin Dose 81 MG; Start 05/27/19 at 18:30; Status Hold Clopidogrel Bisulfate (plaVIX) 75 mg DAILY PO Last administered on 05/30/19 09:07; Admin Dose 75 MG; Start 05/27/19 at 18:30; Status Hold Folic Acid (Folic Acid) 1 mg DAILY PO Last administered on 06/10/19 09:27; Admin Dose 1 MG; Start 05/27/19 at 18:30 Magnesium Oxide (Mag-Ox 400) 400 mg DAILY PO Last administered on 06/10/19 09:27; Admin Dose 400 MG; Start 05/27/19 at 18:30 Megestrol Acetate (Megace) 40 mg TID PO Last administered on 06/10/19 09:27; Admin Dose 40 MG; Start 05/27/19 at 21:00 Nystatin (Nystatin Susp) 5 ml Q4 PO Last administered on 06/10/19 09:31; Admin Dose 5 ML; Start 05/27/19 at 21:00 Sacubitril/ Valsartan (Entresto 24 Mg-26 Mg) 1 tab BID PO Last administered on 06/10/19 09:24; Admin Dose 1 TAB; Start 05/27/19 at 21:00 Ondansetron HCl (Zofran Inj) 4 mg Q4H PRN IV NAUSEA AND/OR VOMITING Last administered on 06/09/19 15:40; Admin Dose 4 MG; Start 05/27/19 at 18:30 Acetaminophen (Tylenol Tab) 500 mg Q6H PRN PO MILD PAIN(1-3)OR ELEVATED TEMP Last administered on 06/08/19 21:17; Admin Dose 500 MG; Start 05/27/19 at 18:30 Albuterol/ Ipratropium (Duoneb) 3 ml Q6H RESP THERAPY PRN HHN SHORTNESS OF BREATH Last administered on 06/04/19 19:56; Admin Dose 3 ML; Start 05/27/19 at 18:30 Miscellaneous Information (Pending [facility] Order For Wound Care) This patient meyer... PRN PRN XX WOUND CARE; Start 05/27/19 at 20:00 Digoxin (Digoxin) 0.125 mg DAILY@1300 PO Last administered on 06/09/19 13:16; Admin Dose 0.125 MG; Start 05/28/19 at 13:00 Furosemide (Lasix) 40 mg BID DIURETICS IV Last administered on 06/09/19 17:52; Admin Dose 40 MG; Start 05/29/19 at 18:00 Metoprolol Succinate (Toprol Xl) 12.5 mg DAILY PO Last administered on 06/10/19 09:27; Admin Dose 12.5 MG; Start 05/30/19 at 09:00 Levothyroxine Sodium (Synthroid) 100 mcg BEFORE BREAKFAST PO Last administered on 06/09/19 06:34; Admin Dose 100 MCG; Start 06/01/19 at 07:00 Albuterol/ Ipratropium (Duoneb) 3 ml Q8H RESP THERAPY HHN Last administered on 06/10/19 01:10; Admin Dose 3 ML; Start 06/03/19 at 00:00 Docusate Sodium (Colace Liquid Cup) 100 mg BID GTB Last administered on 06/04/19 08:49; Admin Dose 100 MG; Start 06/03/19 at 21:00 Lorazepam (Ativan) 1 mg QHS PRN PO INSOMNIA; Start 06/03/19 at 17:30 Potassium Chloride (Potassium Chloride Pwd/Soln) 8 meq DAILY GTB Last administered on 06/10/19at 09:24; Admin Dose 8 MEQ; Start 06/05/19 at 09:30 Lidocaine (Lidoderm) 1 patch Q24H TD Last administered on 06/09/19at 17:50; Admin Dose 1 PATCH; Start 06/09/19 at 17:00 ARIEL HOBBS Jun 10, 2019 11:22
[2019-06-10 11:49] VITALS: BP 106/57; PULSE 79; RESP 18
[2019-06-10] MEDS: DIGOXIN 0.125 MG TAB PO SCH (14:26)
--- NOTE | 2019-06-10 14:49 | CONS ---
DATE OF ADMISSION: 05/27/2019 DATE OF CONSULTATION: REASON FOR CONSULTATION: ENT was reconsulted to evaluate her. CT head showed a process in the left chest; however, biopsy just showed inflammation. ENT was consulted to evaluate her speech and swallo wing. PHYSICAL EXAMINATION: HEENT: Using an endoscope through the left nasal cavity, the nasopharynx is clear. Base of tongue i s symmetric. Vallecula is open. Epiglottis is normal. She has a complete left vocal cord paralysis at this time. I cannot see the subglottic space. I see no lesions whatsoever. NECK: Reveals no lymphadenopathy or thyromegaly. Her trachea is midline. Her parotids and submandi bular glands are without lesions. IMPRESSION: 1. Dysphagia. 2. Dysphonia. 3. Left true vocal cord paralysis. PLAN: At this point, I discussed the case with . I think it is reasonable to consider a le ft injection thyroplasty as it should improve her voice and make it less likely for her to aspirate. I will discuss the case with my partner, but she can be followed up in our office where the procedur e can be performed. If there are any questions or concerns, please feel free to reconsult at any brianne e. Thank you very much for the ENT consult. Dictated By: ABIODUN GRIGSBY MD DM/CECILIA Conf#: [id number] DID#: [id number] CC: PEDRO KRUSE MD;*EndCC*
[2019-06-10 16:03] VITALS: BP 107/61; PULSE 84; RESP 20
[2019-06-10] MEDS: LIDOCAINE 5% PATCH TD SCH (17:58)
[2019-06-10] MEDS: FUROSEMIDE 40 MG TAB PO SCH (17:58)
[2019-06-10 20:01] VITALS: BP 98/65; PULSE 90; RESP 18
--- NOTE | 2019-06-10 22:33 | CONS ---
Assessment/Plan Assessment/Plan Hospital Course (Demo Recall) Hodgkin lymphoma- s/p chemotherapy PT HAS HX PROGRESSIVE REFRACTOPY DIS POST CHEMO AMD IMMUNOTHERAPY, MOST RECENT PET/CT SHOWED SOME IMPROVEMENT DYSPHAGIA GI F-UP POST EGD/BX, PATH- A-Esophagus, biopsy: -- Squamous epithelium showing severe acute inflammation, ulcer and granulation tissue formation. D/W DA[facility] [employer] [facility] Anemia WITH COMPONENT ACD monitor Severe respiratory distress improving. HX IHD angina, Low LVEF dropped. Findings most consistent with mild ADHF with associated type II NSTEMI HX Pulmonary edema Osteoarthritis with pain syndrome Anxiety disorder. Depression with grief reaction-s/p loss of . Urinary incontinence. Osteoporosis. Kyphosis. Postmenopausal syndrome. Brain atrophy on CT. Left sphenoid sinusitis on CT. Left ventricular hypertrophy. Urinary incontinence. Cerebrovascular accident, with left facial drooling, left facial weakness, with slurred speech and dysphagia. Mild left upper extremity weakness.mostly corrected. Hypertension, now normotensive. HX of PTCA with one sent and 3 balloon dilatation of narrow coronary arteries(; Medication noncompliance. Consultation Date/Type/Reason Admit Date/Time May 27, 2019 at 13:49 Initial Consult Date Type of Consult [facility] Requesting Provider: PEDRO KRUSE MD Date/Time of Note DATE: 06/10/19 TIME: 22:31 24 HR Interval Summary Free Text/Dictation ALL NOTED 2ND ESOPHAGEAL BX - BENIGN Exam/Review of Systems Exam Vitals Vital Signs Date Temp Pulse Resp B/P (MAP) Pulse Ox O2 O2 Flow FiO2 Time Delivery Rate 06/10/19 97.9 90 18 98/65 (76) 95 20:01 06/10/19 Nasal 04:06 Cannula 06/10/19 21 01:12 Intake and Output 06/09/19 06/09/19 06/10/19 1515:00 23:00 07:00 IntakeIntake Total 700 ml BalanceBalance 700 ml Exam Constitutional: alert, oriented, well developed Psych: no complaints, nl mood/affect Head: normocephalic, atraumatic Eyes: nl conjunctiva, EOMI, nl lids, nl sclera, PERRL ENMT: nl external ears & nose, nl lips & teeth, nl nasal mucosa & septum Neck: supple, non-tender Respiratory: clear to auscultation, normal air movement Cardiovascular: regular rate and rhythm, nl pulses Gastrointestinal: soft, nl liver, spleen, non-tender, GT in place Musculoskeletal: nl extremities to inspection, nl gait and stance Extremities: normal pulses 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: COOK BOAT II-XII intact, nl mental status, nl speech, nl strength Skin: nl turgor; No rash or lesions Lymph: nl lymph nodes Results Result Diagram: 06/09/19 0542 06/09/19 0542 Imaging Imaging Lab No: [id number] Date: 06/07/2019 SPECIMEN: A-Esophagus biopsy B-Esophagus ulceration brushing CLINICAL: Esophagus ulcer GROSS EXAMINATION: A-Received in formalin are three minute fragments of velazquez-white tissue that each less than 0.1 cm in greatest dimension. Totally submitted in cassette A. B-Received two smears in 95% alcohol with an endoscopic brush submitted to Cytology. One cell button is prepared. MICROSCOPIC DIAGNOSIS: A-Esophagus, biopsy: -- Squamous epithelium showing severe acute inflammation, ulcer and granulation tissue formation. -- No fungal organisms are identified in Alcian Blue/PAS stain (positive control concurrently reviewed). -- No evidence of viral cytopathic effect, dysplasia or malignancy. B-Esophagus, ulceration brushing: -- Reactive squamous epithelial cells, neutrophils and necrotic debris. -- No fungal organisms are identified in PAS/Light Green stain (positive control concurrently reviewed). -- No malignant cells are identified. MP/ALEN/lonny/hodan Date of Service: 06/07/19; Date Received: 06/07/19 Dictated: 06/10/19; Transcribed: 06/10/19; Sent by Fax: 06/10/19 Gaye Johnson M.D. Pathologist Electronically Signed 06/10/2019 OMAR RECIO M.D. PATIENT: RAJEEV QUICK CARISSA HOLDEN M.D. AGE/SEX/: 73/F 1945 [employer] MR NO: [id number] VISIT: [id number] ROOM NO: PHYSICIAN: Shahnaz LIAO, HUMZA KRUSE M.D., V. TISSUE EXAMINATION REPORT ANATOMIC AND CLINICAL PATHOLOGY CONSULTATION GROSS EXAMINATION PERFORMED BY: [facility] - [address] [place] [address], [address] - [place] ; Medications Medication Current Medications Aspirin (Aspirin) 81 mg DAILY PO Last administered on 05/30/19 09:09; Admin Dose 81 MG; Start 05/27/19 at 18:30; Status Hold Clopidogrel Bisulfate (plaVIX) 75 mg DAILY PO Last administered on 05/30/19 09:07; Admin Dose 75 MG; Start 05/27/19 at 18:30; Status Hold Folic Acid (Folic Acid) 1 mg DAILY PO Last administered on 06/10/19 09:27; Adm in Dose 1 MG; Start 05/27/19 at 18:30 Magnesium Oxide (Mag-Ox 400) 400 mg DAILY PO Last administered on 06/10/19 09:27; Admin Dose 400 MG; Start 05/27/19 at 18:30 Megestrol Acetate (Megace) 40 mg TID PO Last administered on 06/10/19 14:26; Admin Dose 40 MG; Start 05/27/19 at 21:00 Nystatin (Nystatin Susp) 5 ml Q4 PO Last administered on 06/10/19 21:31; Admin Dose 5 ML; Start 05/27/19 at 21:00 Sacubitril/ Valsartan (Entresto 24 Mg-26 Mg) 1 tab BID PO Last administered on 06/10/19 09:24; Admin Dose 1 TAB; Start 05/27/19 at 21:00 Ondansetron HCl (Zofran Inj) 4 mg Q4H PRN IV NAUSEA AND/OR VOMITING Last administered on 06/09/19 15:40; Admin Dose 4 MG; Start 05/27/19 at 18:30 Acetaminophen (Tylenol Tab) 500 mg Q6H PRN PO MILD PAIN(1-3)OR ELEVATED TEMP Last administered on 06/08/19 21:17; Admin Dose 500 MG; Start 05/27/19 at 18:30 Albuterol/ Ipratropium (Duoneb) 3 ml Q6H RESP THERAPY PRN HHN SHORTNESS OF BREATH Last administered on 06/04/19 19:56; Admin Dose 3 ML; Start 05/27/19 at 18:30 Miscellaneous Information (Pending Santyl Order For Wound Care) This patient meyer... PRN PRN XX WOUND CARE; Start 05/27/19 at 20:00 Digoxin (Digoxin) 0.125 mg DAILY@1300 PO Last administered on 06/10/19 14:26; Admin Dose 0.125 MG; Start 05/28/19 at 13:00 Metoprolol Succinate (Toprol Xl) 12.5 mg DAILY PO Last administered on 06/10/19 09:27; Admin Dose 12.5 MG; Start 05/30/19 at 09:00 Levothyroxine Sodium (Synthroid) 100 mcg BEFORE BREAKFAST PO Last administered on 06/09/19 06:34; Admin Dose 100 MCG; Start 06/01/19 at 07:00 Albuterol/ Ipratropium (Duoneb) 3 ml Q8H RESP THERAPY HHN Last administered on 06/10/19 01:10; Admin Dose 3 ML; Start 06/03/19 at 00:00 Docusate Sodium (Colace Liquid Cup) 100 mg BID GTB Last administered on 06/04/19 08:49; Admin Dose 100 MG; Start 06/03/19 at 21:00 Lorazepam (Ativan) 1 mg QHS PRN PO INSOMNIA; Start 06/03/19 at 17:30 Potassium Chloride (Potassium Chloride Pwd/Soln) 8 meq DAILY GTB Last administered on 06/10/19 09:24; Admin Dose 8 MEQ; Start 06/05/19 at 09:30 Lidocaine (Lidoderm) 1 patch Q24H TD Last administered on 06/10/19 17:58; Admin Dose 1 PATCH; Start 06/09/19 at 17:00 Furosemide (Lasix) 40 mg BID DIURETICS PO Last administered on 06/10/19 17:58; Admin Dose 40 MG; Start 06/10/19 at 18:00 KALPANA ANGELES MD Jun 10, 2019 22:33
[2019-06-10] MEDS: ACETAMINOPHEN 500 MG TAB PO PRN (22:50)
[2019-06-11 00:11] VITALS: BP 100/69; PULSE 84; RESP 18
[2019-06-11] MEDS: NYSTATIN SUSP 5 ML CUP PO SCH ×6 (01:00→18:11)
[2019-06-11] MEDS: LEVOTHYROXINE 100 MCG TAB PO SCH (06:10)
[2019-06-11] MEDS: FUROSEMIDE 40 MG TAB PO SCH ×2 (06:11→18:05)
[2019-06-11 07:40] VITALS: BP 102/60; PULSE 92; RESP 17
[2019-06-11] MEDS: ALBUTEROL/IPRATROPIUM (NEB) 3 ML AMP HHN SCH ×4 (08:00→23:33)
--- NOTE | 2019-06-11 08:58 | CONS ---
Assessment/Plan Assessment/Plan Hospital Course (Demo Recall) 73 yo female 1. Dysphagia - Patient has ulcerated lesion in the proximal esophagus starting from cricopharyngeal sphincter with narrowing of the lumen and this was confirmed on the CT scan of the neck 2. Weight loss secondary to #1 3. Cardiomyopathy with ejection fraction of 20% to 25%. 4. History of Hodgkin's lymphoma. 5. Depression. 6. Kyphosis. 7. Hypertension. 8. Status post left subclavian pacemaker implantation. 9. H/O CVA 10. 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 -- No fungal organisms are identified in Alcian Blue/PAS stain (positive control concurrently reviewed). -- No evidence of viral cytopathic effect, dysplasia or malignancy. B-Esophagus, ulceration brushing: -- Reactive squamous epithelial cells, neutrophils and necrotic debris. -- No fungal organisms are identified in PAS/Light Green stain (positive control concurrently reviewed). -- No malignant cells are identified. Plan Continue tube feeds Tertiary care for esophageal mass and esophagotracheal fistula. Can not place esophageal stent. Pt examined and plan of care d/w Dr. Alejandro Consultation Date/Type/Reason Admit Date/Time May 27, 2019 at 13:49 Initial Consult Date Requesting Provider: PEDRO KRUSE MD Date/Time of Note DATE: 06/11/19 TIME: 08:56 24 HR Interval Summary Free Text/Dictation no acute changes. States she is okay. tolerating tube feeds Exam/Review of Systems Exam Vitals Vital Signs Date Temp Pulse Resp B/P (MAP) Pulse Ox O2 O2 Flow FiO2 Time Delivery Rate 06/11/19 97.4 92 17 102/60 94 07:40 (74) 06/10/19 Nasal 04:06 Cannula 06/10/19 21 01:12 Constitutional: alert Head: normocephalic Eyes: PERRL Respiratory: normal air movement Cardiovascular: regular rate and rhythm Gastrointestinal: soft, non-tender 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: nl mental status Results Result Diagram: 06/09/19 0542 06/09/19 0542 Medications Medication Current Medications Aspirin (Aspirin) 81 mg DAILY PO Last administered on 05/30/19at 09:09; Admin Dose 81 MG; Start 05/27/19 at 18:30; Status Hold Clopidogrel Bisulfate (plaVIX) 75 mg DAILY PO Last administered on 05/30/19 09:07; Admin Dose 75 MG; Start 05/27/19 at 18:30; Status Hold Folic Acid (Folic Acid) 1 mg DAILY PO Last administered on 06/10/19 09:27; Admin Dose 1 MG; Start 05/27/19 at 18:30 Magnesium Oxide (Mag-Ox 400) 400 mg DAILY PO Last administered on 06/10/19 09:27; Admin Dose 400 MG; Start 05/27/19 at 18:30 Megestrol Acetate (Megace) 40 mg TID PO Last administered on 06/10/19 14:26; Admin Dose 40 MG; Start 05/27/19 at 21:00 Nystatin (Nystatin Susp) 5 ml Q4 PO Last administered on 06/11/19 06:11; Admin Dose 5 ML; Start 05/27/19 at 21:00 Sacubitril/ Valsartan (Entresto 24 Mg-26 Mg) 1 tab BID PO Last administered on 06/10/19 09:24; Admin Dose 1 TAB; Start 05/27/19 at 21:00 Ondansetron HCl (Zofran Inj) 4 mg Q4H PRN IV NAUSEA AND/OR VOMITING Last administered on 06/09/19 15:40; Admin Dose 4 MG; Start 05/27/19 at 18:30 Acetaminophen (Tylenol Tab) 500 mg Q6H PRN PO MILD PAIN(1-3)OR ELEVATED TEMP Last administered on 06/10/19 22:50; Admin Dose 500 MG; Start 05/27/19 at 18:30 Albuterol/ Ipratropium (Duoneb) 3 ml Q6H RESP THERAPY PRN HHN SHORTNESS OF SONNY TH Last administered on 06/04/19 19:56; Admin Dose 3 ML; Start 05/27/19 at 18:30 Miscellaneous Information (Pending Santyl Order For Wound Care) This patient meyer... PRN PRN XX WOUND CARE; Start 05/27/19 at 20:00 Digoxin (Digoxin) 0.125 mg DAILY@1300 PO Last administered on 06/10/19 14:26; Admin Dose 0.125 MG; Start 05/28/19 at 13:00 Metoprolol Succinate (Toprol Xl) 12.5 mg DAILY PO Last administered on 06/10/19 09:27; Admin Dose 12.5 MG; Start 05/30/19 at 09:00 Levothyroxine Sodium (Synthroid) 100 mcg BEFORE BREAKFAST PO Last administered on 06/11/19 06:10; Admin Dose 100 MCG; Start 06/01/19 at 07:00 Albuterol/ Ipratropium (Duoneb) 3 ml Q8H RESP THERAPY HHN Last administered on 06/10/19 01:10; Admin Dose 3 ML; Start 06/03/19 at 00:00 Docusate Sodium (Colace Liquid Cup) 100 mg BID GTB Last administered on 06/04/19 08:49; Admin Dose 100 MG; Start 06/03/19 at 21:00 Lorazepam (Ativan) 1 mg QHS PRN PO INSOMNIA; Start 06/03/19 at 17:30 Potassium Chloride (Potassium Chloride Pwd/Soln) 8 meq DAILY GTB Last administered on 06/10/19 09:24; Admin Dose 8 MEQ; Start 06/05/19 at 09:30 Lidocaine (Lidoderm) 1 patch Q24H TD Last administered on 06/10/19 17:58; Admin Dose 1 PATCH; Start 06/09/19 at 17:00 Furosemide (Lasix) 40 mg BID DIURETICS PO Last administered on 06/11/19 0 6:11; Admin Dose 40 MG; Start 06/10/19 at 18:00 ERIN SUAREZ Jun 11, 2019 08:58
[2019-06-11] MEDS: MEGESTROL 40 MG TAB PO SCH ×3 (09:00→22:37)
[2019-06-11] MEDS: SACUBITRIL/VALSARTAN (24mg-26mg) TABLET PO SCH ×2 (09:00→22:37)
[2019-06-11] MEDS: METOPROLOL (XL) 25 MG TAB PO SCH (09:00)
--- NOTE | 2019-06-11 09:22 | CONS ---
Consult Date/Type/Reason Admit Date/Time May 27, 2019 at 13:49 Initial Consult Date Requesting Provider: PEDRO KRUSE MD Date/Time of Note DATE: 06/11/19 TIME: 09:20 Subjective NO acute events - /p pEG - NPO now - in sinus, tachy at times - BP overall controlled. ROS: No fever, no chills, no nausea, no vomiting, no diarrhea/constipation - mild SOB, feels tired Objective Vitals Vital Signs Date Temp Pulse Resp B/P (MAP) Pulse Ox O2 O2 Flow FiO2 Time Delivery Rate 06/11/19 97.4 92 17 102/60 94 07:40 (74) 06/10/19 Nasal 04:06 Cannula 06/10/19 21 01:12 Exam General: WN/WD/NAD, AOx 3 HEENT: Unicetric/atraumatic/EOMI (does not follow commands) NECK: JVD elevated, no thyromegaly Lymph: no lymphadenopathy HEART: regular with no S3, II/ systolic murmur at apex LUNGS: Coarse sounds ABD: soft, NT, ND, +BS - PEG : Intact Neuro: non focal SKIN: chronic changes EXT: trace edema Results/Medications Result Diagram: 06/09/19 0542 06/09/19 0542 Home Meds Active Scripts Lidocaine (Lidocaine) 1 Each Adh..patch, 1 PATCH TD Q24H for 30 Days, #60 Prov:PEDRO KRUSE MD 06/09/19 Sacubitril/Valsartan (Entresto 24 mg-26 mg Tablet) 1 Each Tablet, 1 TAB PO BID for 30 Days, #60 TAB Prov:PEDRO KRUSE MD 06/09/19 Metoprolol Succinate* (Toprol XL*) 25 Mg Tab.sr.24h, 12.5 MG PO DAILY for 30 Days, #60 Prov:PEDRO KRUSE MD 06/09/19 Fenofibrate* (Fenofibrate*) 200 Mg Cap, 200 MG PO DAILY for 30 Days, #30 CAP Prov:PEDRO KRUSE MD 09/16/18 Digoxin* (Lanoxin*) 0.125 Mg Tablet, 0.125 MG PO DAILY for 30 Days, #30 TAB Prov:PEDRO KRUSE MD 09/16/18 Potassium Chloride* (Potassium Chloride*) 8 Meq Capsule.er, 8 MEQ PO DAILY for 30 Days, #30 CAP Prov:PEDRO KRUSE MD 09/16/18 Isosorbide Mononitrate* (Isosorbide Mononitrate*) 30 Mg Tab.er.24h, 30 MG PO DAILY for 30 Days, #30 TAB Prov:PEDRO KRUSE MD 09/16/18 Clopidogrel Bisulfate (Clopidogrel) 75 Mg Tablet, 75 MG PO DAILY, #30 TAB Prov:PEDRO KRUSE MD 09/16/18 Folic Acid* (Folic Acid*) 1 Mg Tablet, 1 MG PO DAILY for 30 Days, #30 TAB Prov:PEDRO KRUSE MD 09/16/18 Aspirin* (Aspirin* Chew) 81 Mg Tab.chew, 81 MG PO DAILY for 30 Days, #30 TAB.CHEW Prov:PEDRO KRUSE MD 09/16/18 Reported Medications Nystatin (Nystatin) 100,000 Unit/1 Ml Oral.susp, 5 ML PO Q4, #60 ML 05/27/19 Acetaminophen with Codeine (Acetaminop-Codeine 120-12 mg/5) 118 Ml Solution, 5 ML PO Q4 for PAIN 05/27/19 Megestrol Acetate* (Megestrol Acetate*) 40 Mg Tablet, 40 MG PO TID for APPETITE, TAB 05/27/19 Furosemide* (Furosemide*) 40 Mg Tablet, 40 MG PO BID, TAB 05/27/19 Levothyroxine Sodium* (Levothyroxine Sodium*) 125 Mcg Tablet, 125 MCG PO BEFORE BREAKFAST, #30 TAB 02/11/19 Esomeprazole Mag Trihydrate (Nexium) 40 Mg Capsule.dr, 40 MG PO DAILY, #30 CAP 02/11/19 Magnesium Oxide* (Magnesium Oxide*) 400 Mg Tablet, 400 MG PO DAILY, TAB 02/11/19 Medications Current Medications Aspirin (Aspirin) 81 mg DAILY PO Last administered on 05/30/19at 09:09; Admin Dose 81 MG; Start 05/27/19 at 18:30; Status Hold Clopidogrel Bisulfate (plaVIX) 75 mg DAILY PO Last administered on 05/30/19at 09:07; Admin Dose 75 MG; Start 05/27/19 at 18:30; Status Hold Folic Acid (Folic Acid) 1 mg DAILY PO Last administered on 06/10/19 09:27; Admin Dose 1 MG; Start 05/27/19 at 18:30 Magnesium Oxide (Mag-Ox 400) 400 mg DAILY PO Last administered on 06/10/19 09: 27; Admin Dose 400 MG; Start 05/27/19 at 18:30 Megestrol Acetate (Megace) 40 mg TID PO Last administered on 06/10/19 14:26; Admin Dose 40 MG; Start 05/27/19 at 21:00 Nystatin (Nystatin Susp) 5 ml Q4 PO Last administered on 06/11/19 06:11; Admin Dose 5 ML; Start 05/27/19 at 21:00 Sacubitril/ Valsartan (Entresto 24 Mg-26 Mg) 1 tab BID PO Last administered on 06/10/19 09:24; Admin Dose 1 TAB; Start 05/27/19 at 21:00 Ondansetron HCl (Zofran Inj) 4 mg Q4H PRN IV NAUSEA AND/OR VOMITING Last adm inistered on 06/09/19 15:40; Admin Dose 4 MG; Start 05/27/19 at 18:30 Acetaminophen (Tylenol Tab) 500 mg Q6H PRN PO MILD PAIN(1-3)OR ELEVATED TEMP Last administered on 06/10/19 22:50; Admin Dose 500 MG; Start 05/27/19 at 18:30 Albuterol/ Ipratropium (Duoneb) 3 ml Q6H RESP THERAPY PRN HHN SHORTNESS OF BREATH Last administered on 06/04/19 19:56; Admin Dose 3 ML; Start 05/27/19 at 18:30 Miscellaneous Information (Pending Santyl Order For Wound Care) This patient meyer... PRN PRN XX WOUND CARE; Start 05/27/19 at 20:00 Digoxin (Digoxin) 0.125 mg DAILY@1300 PO Last administered on 06/10/19 14:26; Admin Dose 0.125 MG; Start 05/28/19 at 13:00 Metoprolol Succinate (Toprol Xl) 12.5 mg DAILY PO Last administered on 06/10/19 09:27; Admin Dose 12.5 MG; Start 05/30/19 at 09:00 Levothyroxine Sodium (Synthroid) 100 mcg BEFORE BREAKFAST PO Last administered on 06/11/19 06:10; Admin Dose 100 MCG; Start 06/01/19 at 07:00 Albuterol/ Ipratropium (Duoneb) 3 ml Q8H RESP THERAPY HHN Last administered on 06/10/19 01:10; Admin Dose 3 ML; Start 06/03/19 at 00:00 Docusate Sodium (Colace Liquid Cup) 100 mg BID GTB Last administered on 06/04/19 08:49; Admin Dose 100 MG; Start 06/03/19 at 21:00 Lorazepam (Ativan) 1 mg QHS PRN PO INSOMNIA; Start 06/03/19 at 17:30 Potassium Chloride (Potassium Chloride Pwd/Soln) 8 meq DAILY GTB Last administered on 06/10/19 09:24; Admin Dose 8 MEQ; Start 06/05/19 at 09:30 Lidocaine (Lidoderm) 1 patch Q24H TD Last administered on 06/10/19 17:58; Admin Dose 1 PATCH; Start 06/09/19 at 17:00 Furosemide (Lasix) 40 mg BID DIURETICS PO Last administered on 06/11/19 06:11; Admin Dose 40 MG; Start 06/10/19 at 18:00 Assessment/Plan Hospital Course (Demo Recall) 1. Preoperative evaluation prior to endoscopy for evaluation of the patient's dysphagia and odynophagia - Now post-op s/p endoscopy with findings of esophageal mass - PEG placement - tolerated procedure well. Con't to keep euvolemic as tolerated. Stable. 2. Cardiomyopathy with severely depressed left ventricular ejection fraction- con't to keep euvolemic. In good fluid status - not in CHF now. NOt in CHF by exam. 3. Congestive heart failure, systolic, CHRONIC. 4. Dysphagia and odynophagia - now with PEG 5. Vocal cord paresis. 6. Hypothyroidism. 7. History of percutaneous transluminal coronary angioplasty and stent placement, patent via catheterization 04/2019, with most recent stents actually placed in 2016, with a type 2 non-ST elevated myocardial infarction prior to last catheterization, and a stress test 02/2019, revealing no reversible ischemia - con't med rx. 8. [id number]- PEG now. 9. Lymphoma Hodgkin's ongoing status post chemotherapy - hematology follows. Con't Med Rx. 10. History of cerebrovascular accident. 11. Hypertension. 12. Dyslipidemia. 13. Hypothyroidism - on therapty. 14. Urinary incontinence. 15. Psychiatric disorder - defer toprimary team. 16. Nonsustained ventricular tachycardia-no recurrence, neg trop x 3 - no intervention planned. 17. Status post implantable cardioverter-defibrillator. BEULAH MONTGOMERY MD Jun 11, 2019 09:22
--- NOTE | 2019-06-11 09:25 | PN ---
Date/Time of Note Date/Time of Note DATE: 06/11/19 TIME: 09:13 Assessment/Plan VTE Prophylaxis Risk score (from Ns)>0 risk: 2 SCD applied (from [facility]): No SCD contraindicated: other (She is walking but refusing SCD) Pharmacological prophylaxis: other (Refused.) Pharm contraindication: patient refusal Lines/Catheters IV [facility]ter [facility]from [facility] Saline Lock Urinary Cath still in place: No Assessment/Plan Hospital Course See above. Assessment/Plan 1. S/P G-tube placement due to of Dysphagia.Ulceration of the upper esophagus with inability to eat. Unable to swallow most of the time. Regurgitating even saliva. On and off able to swallow. Severe decrease of voice with substernal pressure sensation severe respiratory distress with worsening of wheezing and inability to sleep. Unable to take medications due to above. Continue titration of the G-tube feeding rate. 2.IHD angina, new onset DC by positive troponin series still high. Discussed with Dr. Alvarez. HX of recent PTCA with one stent and 3 balloon dilatation of narrow coronary arteries(; according to the daughter). Status post stapling of mitral valve 6 months ago in [facility] with improvement of condition immediately after the procedure but still she is having frequent hospitalizations. Although it is evident that the cause is not over drinking possibly medication noncompliance. Discussed with Dr. Alvarez. 3. Dysphagia to solids and sometimes to liquids now to everything. Refuses to eat secondary to pain.. Called Dr.David Silver; [phone] for a ENT consultation. Second evaluation of ENT zone was performed the patient had a vocal cord paralysis. Plan to perform an outpatient procedure by another ENT specialist. 4. Pulmonary edema by x-ray with wheezing on admission, improved after lasix. Ejection fraction was at 25-30 %. Improved. 5. History of Hodgkin lymphoma:. 6. Osteoarthritis with pain syndrome 7. Anxiety disorder. 8. Depression with grief reaction-s/p loss of . 9. Urinary incontinence. 10. Osteoporosis. 11. Kyphosis. 12. Postmenopausal syndrome. 13. Anemia with nl iron. 14. Brain atrophy on CT. 15. Left sphenoid sinusitis on CT. 16. Left ventricular hypertrophy. 17. Urinary incontinence with recurrent UTIs. Now with enterococcus species. 18.Cerebrovascular accident, with left facial drooling, left facial weakness, with slurred speech and dysphagia. Mild left upper extremity weakness. 19. Hypertension, now normotensive.Cardiomegaly on cxr 20. Status post left subclavian area pacemaker implantation about 3 months ago. 21. Status post mitral valve endocardial manipulation with stapling of the valves with good clinical results. 22. Recurrent episodes of V. tach now 8 complexes on a monitor and SVT; placed on the monitor but cardiology consult. 23.Weight loss mainly due to of not eating well. 24.Sleeplessness 25.Poor self expression capacity and getting worse. Talks for minutes but unable to conclude talk or be precise. 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 27. Weight loss-now she is gaining weight after starting the G-tube feeding. 28. 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 Plan to perform a bronchoscopy. Discussed with Dr. Gonzalez and Dr. Hurst,. Possible transfer to the [facility] for further management. 30. Ulcer of the upper part of the esophagus with the absence of malignant cells by pathology report. Underlying malignant process is not totally excluded we will proceed with a bronchoscopy to clarify this issue. 31.Medication noncompliance. Result Diagram: 06/09/19 0542 06/09/19 0542 Subjective 24 Hr Interval Summary Free Text/Dictation I do not want to reduce food. I do not want the G-tube to be in place. The patient showing the G-tube for which feeding is going. It become apparent that the patient is not tolerating rates more than 40 cc/h it is demonstrated by distended epigastric region regurgitation and discomfort for the patient. Plan to decrease the rate to 30 continuously which she tolerates better but it is much less comparing with her calorie requirements. Discussed with the son who was present in the presence of her mother that she got malnourished and a G-tube placement and nourishment is a part of her treatment she agrees to continue to treatment. At the time of this test this dictation the patient is getting up G- tube feeding and will continue work-up. Discussed the absence of cancer cells in the biopsy material. Discussed with property technician Dr. Gonzalez he thinks that the fistula between the bronchus and the esophagus is not fully assessed. Plan to perform a bronchoscopy. Discussed with the hospital cleaning specialist Dr. Hurst, we will go ahead and do the bronchoscopy. Constitutional: improved, diaphoresis, poor po, requiring O2; No no complaints, No chills, No disoriented, No febrile, No requiring IVF, No other Eyes: No no complaints, No pain, No discharge, No redness, No visual change, No other ENT: congestion, dysphagia, sore throat, other (Dysphagia persists. Less expectoration from throat.); No no complaints, No bleeding, No pain, No discharge Respiratory: cough, pleuritic pain; No no complaints, No pain, No shortness of breath, No sputum, No wheezing, No other Cardiovascular: chest pain, lightheadedness; No no complaints, No edema, No orthopenea, No palpitations, No paroxysmal nocturnal dyspnea, No other Gastrointestinal: constipation; No no complaints, No pain, No blood, No decreased appetite, No diarrhea, No flatus, No nausea, No passing stool, No vomiting, No other Genitourinary: No no complaints, No bleeding, No dysuria, No discharge, No flank pain, No hematuria, No other Musculoskeletal: back pain, bone/joint pain Skin: No no complaints, No bruising, No erythema, No laceration, No pruritis, No rash, No skin lesions, No other Neurologic: dizziness, headache; No no complaints, No confusion, No focal-weakness, No syncope, No seizure, No other Endocrine: No no complaints, No polyuria, No polydypsia, No dry skin, No temp intolerance, No other Lymphatic: No no complaints, No adenopathy, No tender nodes, No lymphadema, No other Psychological: anxiety; No no complaints, No nl mood/affect, No confusion, No depression, No suicidal, No other Immunologic: No no complaints, No immunodeficiency, No pruritis, No rhinitis, No urticaria, No other Exam/Review of Systems Exam Vitals Vital Signs Date Temp Pulse Resp B/P (MAP) Pulse Ox O2 O2 Flow FiO2 Time Delivery Rate 06/11/19 97.4 92 17 102/60 94 07:40 (74) 06/10/19 Nasal 04:06 Cannula 06/10/19 21 01:12 Constitutional: alert, oriented, well developed, distress, frail Psych: anxiety; No no complaints, No nl mood/affect, No confusion, No depression, No suicidal, No other Head: normocephalic, atraumatic; No lacerations, No hematomas, No other Eyes: EOMI, nl lids; No nl conjunctiva, No nl sclera, No PERRL, No icteric, No fundi, disc, No other ENMT: No nl external ears & nose, No nl lips & teeth, No nl nasal mucosa & septum, No mucosa pink and moist, No intubated, No tympanic membranes, No other Neck: jvd, bruits, thyromegaly, nuchal rigidity; No supple, No non-tender, No masses, No other Respiratory: clear to auscultation, congested cough, diminished breath sounds; No normal air movement, No crackles/rales, No intercostal retraction, No labored breathing, No respirations, No tactile fremitus, No wheezing, No other Cardiovascular: nl pulses, irregular rhythm, jugular venous distention (JVD), systolic murmur; No regular rate and rhythm, No bruits, No diastolic murmur, No edema, No gallop, No murmurs/extra sounds, No rub, No S3, No S4, No other Gastrointestinal: soft, nl liver, spleen, bowel sounds, distended, rebound or guarding, splenomegaly; No non-tender, No ascites, No firm, No hepatomegaly, No mass, No surgical scars, No tender, No other Musculoskeletal: joint tenderness, muscle tone, muscle weakness, other (Even mild physical exercise and taken to the patient and she is walking from the bed to the toilet he is elevating the heart rate more than 100 now reaching also to 110 and 120 in the past it was until the level of 150. PT OT will be continued); No nl extremities to inspection, No nl gait and stance, No range of motion, No spine non-tender, No swelling Extremities: normal pulses; No calf tenderness, No cyanosis, No clubbing, No edema, No pitting pedal edema, No palpable cord, No tenderness, No other 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: [employer] CHIEF II-XII intact; No nl mental status, No nl speech, No nl strength, No confused, No DTR's symmetric, No focal weakness, No lethargic, No numbness, No reflexes, No unresponsive, No other Medications Medication Current Medications Aspirin (Aspirin) 81 mg DAILY PO Last administered on 05/30/19 09:09; Admin Dose 81 MG; Start 05/27/19 at 18:30; Status Hold Clopidogrel Bisulfate (plaVIX) 75 mg DAILY PO Last administered on 05/30/19 09:07; Admin Dose 75 MG; Start 05/27/19 at 18:30; Status Hold Folic Acid (Folic Acid) 1 mg DAILY PO Last administered on 06/10/19 09:27; Admin Dose 1 MG; Start 05/27/19 at 18:30 Magnesium Oxide (Mag-Ox 400) 400 mg DAILY PO Last administered on 06/10/19 09:27; Admin Dose 400 MG; Start 05/27/19 at 18:30 Megestrol Acetate (Megace) 40 mg TID PO Last administered on 06/10/19 14:26; Admin Dose 40 MG; Start 05/27/19 at 21:00 Nystatin (Nystatin Susp) 5 ml Q4 PO Last administered on 06/11/19 06:11; Admin Dose 5 ML; Start 05/27/19 at 21:00 Sacubitril/ Valsartan (Entresto 24 Mg-26 Mg) 1 tab BID PO Last administered on 06/10/19 09:24; Admin Dose 1 TAB; Start 05/27/19 at 21:00 Ondansetron HCl (Zofran Inj) 4 mg Q4H PRN IV NAUSEA AND/OR VOMITING Last administered on 06/09/19 15:40; Admin Dose 4 MG; Start 05/27/19 at 18:30 Acetaminophen (Tylenol Tab) 500 mg Q6H PRN PO MILD PAIN(1-3)OR ELEVATED TEMP Last administered on 06/10/19 22:50; Admin Dose 500 MG; Start 05/27/19 at 18:30 Albuterol/ Ipratropium (Duoneb) 3 ml Q6H RESP THERAPY PRN HHN SHORTNESS OF BREATH Last administered on 06/04/19 19:56; Admin Dose 3 ML; Start 05/27/19 at 18:30 Miscellaneous Information (Pending Santyl Order For Wound Care) This patient meyer... PRN PRN XX WOUND CARE; Start 05/27/19 at 20:00 Digoxin (Digoxin) 0.125 mg DAILY@1300 PO Last administered on 06/10/19 14:26; Admin Dose 0.125 MG; Start 05/28/19 at 13:00 Metoprolol Succinate (Toprol Xl) 12.5 mg DAILY PO Last administered on 06/10/19 09:27; Admin Dose 12.5 MG; Start 05/30/19 at 09:00 Levothyroxine Sodium (Synthroid) 100 mcg BEFORE BREAKFAST PO Last administered on 06/11/19 06:10; Admin Dose 100 MCG; Start 06/01/19 at 07:00 Albuterol/ Ipratropium (Duoneb) 3 ml Q8H RESP THERAPY HHN Last administered on 06/10/19 01:10; Admin Dose 3 ML; Start 06/03/19 at 00:00 Docusate Sodium (Colace Liquid Cup) 100 mg BID GTB Last administered on 06/04/19 08:49; Admin Dose 100 MG; Start 06/03/19 at 21:00 Lorazepam (Ativan) 1 mg QHS PRN PO INSOMNIA; Start 06/03/19 at 17:30 Potassium Chloride (Potassium Chloride Pwd/Soln) 8 meq DAILY GTB Last administered on 06/10/19 09:24; Admin Dose 8 MEQ; Start 06/05/19 at 09:30 Lidocaine (Lidoderm) 1 patch Q24H TD Last administered on 06/10/19 17:58; Admin Dose 1 PATCH; Start 06/09/19 at 17:00 Furosemide (Lasix) 40 mg BID DIURETICS PO Last administered on 06/11/19 06:11; Admin Dose 40 MG; Start 06/10/19 at 18:00 PEDRO KRUSE MD Jun 11, 2019 09:24
[2019-06-11] MEDS: DOCUSATE SODIUM 10 MG/ML (10ML CUP) GTB SCH ×2 (09:54→10:02)
[2019-06-11] MEDS: POTASSIUM CHLORIDE 20 MEQ POWDER FOR ORAL SOLN GTB SCH ×2 (09:54→10:02)
[2019-06-11] MEDS: FOLIC ACID 1 MG TAB PO SCH (09:54)
[2019-06-11] MEDS: MAGNESIUM OXIDE 400 MG TAB PO SCH (09:55)
[2019-06-11 11:45] VITALS: BP 101/56; PULSE 85; RESP 18
--- NOTE | 2019-06-11 11:48 | CONS ---
Consult Date/Type/Reason Admit Date/Time May 27, 2019 at 13:49 Initial Consult Date 06/10/19 Type of Consult Pulmonary Requesting Provider: PEDRO KRUSE MD Date/Time of Note DATE: 06/11/19 TIME: 11:44 Subjective Patient appears comfortable this morning no respiratory distress. Objective Vital Signs Date Temp Pulse Resp B/P (MAP) Pulse Ox O2 O2 Flow FiO2 Time Delivery Rate 06/11/19 97.4 92 17 102/60 94 07:40 (74) 06/10/19 Nasal 04:06 Cannula 06/10/19 21 01:12 Exam GENERAL: Elderly Urdu lady comfortable. VITAL SIGNS: per chart NECK: Supple. No JVD or lymphadenopathy. CARDIAC EXAM: S1, S2. No added sounds or murmurs. CHEST: clear bilaterally, No added sounds, rales or wheezes ABDOMEN: Soft, nontender. No guarding or rebound. EXTREMITIES: No cyanosis, clubbing or edema. NEUROLOGIC: Generalized weakness. No focal deficits. Vent Setting Fraction of Inspired Oxygen pe: 21 Results/Medications Result Diagram: 06/09/19 0542 06/09/19 0542 Medications Current Medications Aspirin (Aspirin) 81 mg DAILY PO Last administered on 05/30/19 09:09; Admin Dose 81 MG; Start 05/27/19 at 18:30; Status Hold Clopidogrel Bisulfate (plaVIX) 75 mg DAILY PO Last administered on 05/30/19at 09:07; Admin Dose 75 MG; Start 05/27/19 at 18:30; Status Hold Folic Acid (Folic Acid) 1 mg DAILY PO Last administered on 06/11/19 09:54; Admin Dose 1 MG; Start 05/27/19 at 18:30 Magnesium Oxide (Mag-Ox 400) 400 mg DAILY PO Last administered on 06/11/19 09:55; Admin Dose 400 MG; Start 05/27/19 at 18:30 Megestrol Acetate (Megace) 40 mg TID PO Last administered on 06/10/19 14:26; Admin Dose 40 MG; Start 05/27/19 at 21:00 Nystatin (Nystatin Susp) 5 ml Q4 PO Last administered on 06/11/19at 06:11; Admin Dose 5 ML; Start 05/27/19 at 21:00 Sacubitril/ Valsartan (Entresto 24 Mg-26 Mg) 1 tab BID PO Last administered on 06/10/19 09:24; Admin Dose 1 TAB; Start 05/27/19 at 21:00 Ondansetron HCl (Zofran Inj) 4 mg Q4H PRN IV NAUSEA AND/OR VOMITING Last administered on 06/09/19 15:40; Admin Dose 4 MG; Start 05/27/19 at 18:30 Acetaminophen (Tylenol Tab) 500 mg Q6H PRN PO MILD PAIN(1-3)OR ELEVATED TEMP Last administered on 06/10/19 22:50; Admin Dose 500 MG; Start 05/27/19 at 18:30 Albuterol/ Ipratropium (Duoneb) 3 ml Q6H RESP THERAPY PRN HHN SHORTNESS OF BREATH Last administered on 06/04/19 19:56; Admin Dose 3 ML; Start 05/27/19 at 18:30 Miscellaneous Information (Pending [facility] Order For Wound Care) This patient meyer... PRN PRN XX WOUND CARE; Start 05/27/19 at 20:00 Digoxin (Digoxin) 0.125 mg DAILY@1300 PO Last administered on 06/10/19 14:26; Admin Dose 0.125 MG; Start 05/28/19 at 13:00 Metoprolol Succinate (Toprol Xl) 12.5 mg DAILY PO Last administered on 06/10/19 09:27; Admin Dose 12.5 MG; Start 05/30/19 at 09:00 Levothyroxine Sodium (Synthroid) 100 mcg BEFORE BREAKFAST PO Last administered on 06/11/19 06:10; Admin Dose 100 MCG; Start 06/01/19 at 07:00 Albuterol/ Ipratropium (Duoneb) 3 ml Q8H RESP THERAPY HHN Last administered on 06/10/19 01:10; Admin Dose 3 ML; Start 06/03/19 at 00:00 Docusate Sodium (Colace Liquid Cup) 100 mg BID GTB Last administered on 06/04/19 08:49; Admin Dose 100 MG; Start 06/03/19 at 21:00 Lorazepam (Ativan) 1 mg QHS PRN PO INSOMNIA; Start 06/03/19 at 17:30 Potassium Chloride (Potassium Chloride Pwd/Soln) 8 meq DAILY GTB Last administered on 06/10/19at 09:24; Admin Dose 8 MEQ; Start 06/05/19 at 09:30 Lidocaine (Lidoderm) 1 patch Q24H TD Last administered on 06/10/19at 17:58; Admin Dose 1 PATCH; Start 06/09/19 at 17:00 Furosemide (Lasix) 40 mg BID DIURETICS PO Last administered on 06/11/19at 06:11; Admin Dose 40 MG; Start 06/10/19 at 18:00 Assessment/Plan Hospital Course (Demo Recall) Assessment, plan 1. Extensive esophageal mass with local spread. Tracheoesophageal fistula ulcer. Case was discussed with GI at length. No benefit from bronchoscopy at this point as this would not add to patient's management. Also risk of prolonged intubation and mechanical ventilation following bronchoscopy given patient's multiple comorbidities. 2. Consider referral to tertiary care center for evaluation by thoracic surgery. Overall prognosis is poor. 3. History of Hodgkin's lymphoma 4. History of heart failure with reduced ejection fraction of 25%. [facility]ARRISON [facility] Jun 11, 2019 11:48
[2019-06-11] MEDS: ALBUTEROL/IPRATROPIUM (NEB) 3 ML AMP HHN PRN (13:00)
[2019-06-11] MEDS: DIGOXIN 0.125 MG TAB PO SCH (13:34)
[2019-06-11 15:21] VITALS: BP 100/59; PULSE 95; RESP 18
[2019-06-11] MEDS: LIDOCAINE 5% PATCH TD SCH ×2 (18:04→18:10)
--- NOTE | 2019-06-11 18:59 | CONS ---
Assessment/Plan Assessment/Plan Hospital Course (Demo Recall) Hodgkin lymphoma- s/p chemotherapy PT HAS HX PROGRESSIVE REFRACTOPY DIS POST CHEMO AMD IMMUNOTHERAPY, MOST RECENT PET/CT SHOWED SOME IMPROVEMENT DYSPHAGIA, Extensive esophageal mass with local spread. Tracheoesophageal fistula ulcer. PER PULM- " No benefit from bronchoscopy at this point as this would not add to patient's management." Also risky procedure GI F-UP POST EGD/BX, PATH- A-Esophagus, biopsy: -- Squamous epithelium showing severe acute inflammation, ulcer and granulation tissue formation. D/W DAUGHTER [facility] Anemia WITH COMPONENT ACD monitor Severe respiratory distress improving. HX IHD angina, Low LVEF dropped. Findings most consistent with mild ADHF with associated type II NSTEMI HX Pulmonary edema Osteoarthritis with pain syndrome Anxiety disorder. Depression with grief reaction-s/p loss of . Urinary incontinence. Osteoporosis. Kyphosis. Postmenopausal syndrome. Brain atrophy on CT. Left sphenoid sinusitis on CT. Left ventricular hypertrophy. Urinary incontinence. Cerebrovascular accident, with left facial drooling, left facial weakness, with slurred speech and dysphagia. Mild left upper extremity weakness.mostly co rrected. Hypertension, now normotensive. HX of PTCA with one sent and 3 balloon dilatation of narrow coronary arteries(; Medication noncompliance. Consultation Date/Type/Reason Admit Date/Time May 27, 2019 at 13:49 Initial Consult Date Type of Consult [facility] Requesting Provider: PEDRO KRUSE MD Date/Time of Note DATE: 06/11/19 TIME: 18:56 24 HR Interval Summary Free Text/Dictation ALL NOTED D/W DAUGHTER SEEN BY DR HARRISON Exam/Review of Systems Exam Vitals Vital Signs Date Temp Pulse Resp B/P (MAP) Pulse Ox O2 O2 Flow FiO2 Time Delivery Rate 06/11/19 Nasal 2.0 15:54 Cannula 06/11/19 97.8 95 18 100/59 96 15:21 (73) 06/11/19 21 13:01 Exam Constitutional: alert, oriented, well developed Psych: no complaints, nl mood/affect Head: normocephalic, atraumatic Eyes: nl conjunctiva, EOMI, nl lids, nl sclera, PERRL ENMT: nl external ears & nose, nl lips & teeth, nl nasal mucosa & septum Neck: supple, non-tender Respiratory: clear to auscultation, normal air movement Cardiovascular: regular rate and rhythm, nl pulses Gastrointestinal: soft, nl liver, spleen, non-tender, GT in place Musculoskeletal: nl extremities to inspection, nl gait and stance Extremities: normal pulses 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: MANAGER SHIFT II-XII intact, nl mental status, nl speech, nl strength Skin: nl turgor; No rash or lesions Lymph: nl lymph nodes Results Result Diagram: 06/09/1954106/09/19541 Medications Medication Current Medications Aspirin (Aspirin) 81 mg DAILY PO Last administered on 05/30/19 09:09; Admin Dose 81 MG; Start 05/27/19 at 18:30; Status Hold Clopidogrel Bisulfate (plaVIX) 75 mg DAILY PO Last administered on 05/30/19 09:07; Admin Dose 75 MG; Start 05/27/19 at 18:30; Status Hold Folic Acid (Folic Acid) 1 mg DAILY PO Last administered on 06/11/19 09:54; Admin Dose 1 MG; Start 05/27/19 at 18:30 Magnesium Oxide (Mag-Ox 400) 400 mg DAILY PO Last administered on 06/11/19 09:55; Admin Dose 400 MG; Start 05/27/19 at 18:30 Megestrol Acetate (Megace) 40 mg TID PO Last administered on 06/11/19 13:34; Admin Dose 40 MG; Start 05/27/19 at 21:00 Nystatin (Nystatin Susp) 5 ml Q4 PO Last administered on 06/11/19 06:11; Admin Dose 5 ML; Start 05/27/19 at 21:00 Sacubitril/ Valsartan (Entresto 24 Mg-26 Mg) 1 tab BID PO Last administered on 06/10/19 09:24; Admin Dose 1 TAB; Start 05/27/19 at 21:00 Ondansetron HCl (Zofran Inj) 4 mg Q4H PRN IV NAUSEA AND/OR VOMITING Last administered on 06/09/19 15:40; Admin Dose 4 MG; Start 05/27/19 at 18:30 Acetaminophen (Tylenol Tab) 500 mg Q6H PRN PO MILD PAIN(1-3)OR ELEVATED TEMP Last administered on 06/10/19 22:50; Admin Dose 500 MG; Start 05/27/19 at 18:30 Albuterol/ Ipratropium (Duoneb) 3 ml Q6H RESP THERAPY PRN HHN SHORTNESS OF BREATH Last administered on 06/11/19 13:00; Admin Dose 3 ML; Start 05/27/19 at 18:30 Miscellaneous Information ([facility]) This patient meyer... PRN PRN XX WOUND CARE; Start 05/27/19 at 20:00 Digoxin (Digoxin) 0.125 mg DAILY@1300 PO Last administered on 06/11/19 13:34; Admin Dose 0.125 MG; Start 05/28/19 at 13:00 Metoprolol Succinate (Toprol Xl) 12.5 mg DAILY PO Last administered on 06/10/19 09:27; Admin Dose 12.5 MG; Start 05/30/19 at 09:00 Levothyroxine Sodium (Synthroid) 100 mcg BEFORE BREAKFAST PO Last administered on 06/11/19 06:10; Admin Dose 100 MCG; Start 06/01/19 at 07:00 Albuterol/ Ipratropium (Duoneb) 3 ml Q8H RESP THERAPY HHN Last administered on 06/10/19 01:10; Admin Dose 3 ML; Start 06/03/19 at 00:00 Docusate Sodium (Colace Liquid Cup) 100 mg BID GTB Last administered on 06/04/19 08:49; Admin Dose 100 MG; Start 06/03/19 at 21:00 Lorazepam (Ativan) 1 mg QHS PRN PO INSOMNIA; Start 06/03/19 at 17:30 Potassium Chloride (Potassium Chloride Pwd/Soln) 8 meq DAILY GTB Last administered on 06/10/19 09:24; Admin Dose 8 MEQ; Start 06/05/19 at 09:30 Lidocaine (Lidoderm) 1 patch Q24H TD Last administered on 06/10/19 17:58; Admin Dose 1 PATCH; Start 06/09/19 at 17:00 Furosemide (Lasix) 40 mg BID DIURETICS PO Last administered on 06/11/19 18:05; Admin Dose 40 MG; Start 06/10/19 at 18:00 KALPANA ANGELES MD Jun 11, 2019 18:59
[2019-06-11 20:00] VITALS: BP 104/61; PULSE 94; RESP 20
[2019-06-11] MEDS ORDERED: BISACODYL 10 MG SUPP PR PRN (22:30)
[2019-06-12] VITALS: BP 109/69; PULSE 89; RESP 18
[2019-06-12] MEDS: NYSTATIN SUSP 5 ML CUP PO SCH ×4 (00:46→13:00)
[2019-06-12 03:53] VITALS: BP 90/55; PULSE 86; RESP 17
[2019-06-12] MEDS: FUROSEMIDE 40 MG TAB PO SCH ×2 (05:33→05:35)
[2019-06-12] MEDS: LEVOTHYROXINE 100 MCG TAB PO SCH (05:33)
[2019-06-12 07:35] VITALS: BP 96/56; PULSE 85; RESP 18
[2019-06-12] MEDS: ALBUTEROL/IPRATROPIUM (NEB) 3 ML AMP HHN SCH (07:54)
--- NOTE | 2019-06-12 08:48 | DS ---
Date/Time of Note Date/Time of Note DATE: 06/12/19 TIME: 08:44 Discharge Summary Admission/Discharge Info Admit Date/Time May 27, 2019 at 13:49 Discharge Date/Time June 12, 2019 1:00 PM. Discharge Diagnosis 1. S/P G-tube placement due to of Dysphagia.Ulceration of the upper esophagus with inability to eat. Unable to swallow most of the time. Regurgitating even saliva. On and off able to swallow. Severe decrease of voice with substernal pressure sensation severe respiratory distress with worsening of wheezing and inability to sleep. Unable to take medications due to above. Continue titration of the G-tube feeding rate. 2.IHD angina, new onset ME by positive troponin series still high. Discussed with Dr. Alvarez. HX of recent PTCA with one stent and 3 balloon dilatation of narrow coronary arteries(; according to the daughter). Status post stapling of mitral valve 6 months ago in [facility] with improvement of condition immediately after the procedure but still she is having frequent hospitalizations. Although it is evident that the cause is not over drinking possibly medication noncompliance. Discussed with Dr. Alvarez. 3. Dysphagia to solids and sometimes to liquids now to everything. Refuses to eat secondary to pain.. Called Dr.David Silver; [phone] for a ENT consultation. Now on G-tube feeding at the rate of 40 cc/h. Plan to adjust af ter checking residual. 4. Pulmonary edema by x-ray with wheezing on admission, improved after lasix. Ejection fraction was at 25-30 %. Improved. 5. History of Hodgkin lymphoma:. Possible second malignancy in the upper third of esophagus and bronchus ;pathology results are pending. 6. Osteoarthritis with pain syndrome 7. Anxiety disorder. 8. Depression with grief reaction-s/p loss of . 9. Urinary incontinence. 10. Osteoporosis. 11. Kyphosis. 12. Postmenopausal syndrome. 13. Anemia with nl iron. 14. Brain atrophy on CT. 15. Left sphenoid sinusitis on CT. 16. Left ventricular hypertrophy. 17. Urinary incontinence with recurrent UTIs. Now with enterococcus species. 18.Cerebrovascular accident, with left facial drooling, left facial weakness, with slurred speech and dysphagia. Mild left upper extremity weakness. 19. Hypertension, now normotensive.Cardiomegaly on cxr 20. Status post left subclavian area pacemaker implantation about 3 months ago. 21. Status post mitral valve endocardial manipulation with stapling of the valves with good clinical results. 22. Recurrent episodes of V. tach now 8 complexes on a monitor and SVT; placed on the monitor by cardiology consult. 23.Weight loss mainly due to of not eating well. 24.Sleeplessness 25.Poor self expression capacity and getting worse. Talks for minutes but unable to conclude talk or be precise. 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 27. Weight loss-now she is gaining weight after starting the G-tube feeding. 28. 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 Expecting also the possibility of a second malignancy to be excluded 29. Borderline hypokalemia. Continue monitoring 30. On digoxin for atrial fibrillation current level is 0.6mg/d continue 0.125 mg daily. 31. Ischemic cardiomyopathy with low ejection fraction; as above. 32.Medication noncompliance. Hx of Present Illness History was taken from the son of patient due to of difficulty with patient to be able to talk. But the patient is able to express some thoughts and reports. For the last week she is unable to eat normally last 3 days she is totally unable to eat. But 5 to 7 days ago her voice got changed and now her voice is severely decreased in intensity. She is having the nausea and vomiting even saliva is difficult to swallow. She lost weight. He is having shortness of breath and palpitations. She was unable to take her medications. 1 week from now he was she was scheduled to undergo upper GI study in [facility]. I think it would be more prudent to complete the studies in the hospital while her condition is deteriorating. Denies fever and chills denies nausea vomiting. Expressed told that she does not want to leave she does not want any procedure. Discussed with the son decision was made to go ahead and do whatever feel reasonable and necessary. Hospital Course In addition to previously dictated report for discharge summary. Decision was made to not to perform a bronchoscopy due to overall poor prognosis and also because of noncompliance and unwillingness of the patient. At the time of this dictation it is not clear issue going home or residential facility because the family did not make a final decision and the patient does not want to go to the SNF. G-tube feeding scheduled will be 5 hours on 3 hours of. When patient is getting a G-tube feeding rate must be no more than 35 cc/h more than that she is not tolerating. Discussed with Dr. Umm Xiong,, and . Outpatient consultation with Dr. Silver will be organized as he suggested for special procedure to improve the function of the vocal cord and partially improve the prevention of aspiration. Home Meds Active Scripts Lidocaine (Lidocaine) 1 Each Adh..patch, 1 PATCH TD Q24H for 30 Days, #60 Prov:PRINCESS WHITAKER MD 06/09/19 Sacubitril/Valsartan (Entresto 24 mg-26 mg Tablet) 1 Each Tablet, 1 TAB PO BID for 30 Days, #60 TAB Prov:PRINCESS WHITAKER MD 06/09/19 Metoprolol Succinate* (Toprol XL*) 25 Mg Tab.sr.24h, 12.5 MG PO DAILY for 30 Days, #60 Prov:PRINCESS WHITAKER MD 06/09/19 Fenofibrate* (Fenofibrate*) 200 Mg Cap, 200 MG PO DAILY for 30 Days, #30 CAP Prov:PRINCESS WHITAKER MD 09/16/18 Digoxin* (Lanoxin*) 0.125 Mg Tablet, 0.125 MG PO DAILY for 30 Days, #30 TAB Prov:PRINCESS WHITAKER MD 09/16/18 Potassium Chloride* (Potassium Chloride*) 8 Meq Capsule.er, 8 MEQ PO DAILY for 30 Days, #30 CAP Prov:PRINCESS WHITAKER MD 09/16/18 Isosorbide Mononitrate* (Isosorbide Mononitrate*) 30 Mg Tab.er.24h, 30 MG PO DAILY for 30 Days, #30 TAB Prov:PRINCESS WHITAKER MD 09/16/18 Clopidogrel Bisulfate (Clopidogrel) 75 Mg Tablet, 75 MG PO DAILY, #30 TAB Prov:PRINCESS WHITAKER MD 09/16/18 Folic Acid* (Folic Acid*) 1 Mg Tablet, 1 MG PO DAILY for 30 Days, #30 TAB Prov:PRINCESS WHITAKER MD 09/16/18 Aspirin* (Aspirin* Chew) 81 Mg Tab.chew, 81 MG PO DAILY for 30 Days, #30 TAB.CHEW Prov:PRINCESS WHITAKER MD 09/16/18 Reported Medications Nystatin (Nystatin) 100,000 Unit/1 Ml Oral.susp, 5 ML PO Q4, #60 ML 05/27/19 Acetaminophen with Codeine (Acetaminop-Codeine 120-12 mg/5) 118 Ml Solution, 5 ML PO Q4 for PAIN 05/27/19 Megestrol Acetate* (Megestrol Acetate*) 40 Mg Tablet, 40 MG PO TID for APPETITE, TAB 05/27/19 Furosemide* (Furosemide*) 40 Mg Tablet, 40 MG PO BID, TAB 05/27/19 Levothyroxine Sodium* (Levothyroxine Sodium*) 125 Mcg Tablet, 125 MCG PO BEFORE BREAKFAST, #30 TAB 02/11/19 Esomeprazole Mag Trihydrate (Nexium) 40 Mg Capsule.dr, 40 MG PO DAILY, #30 CAP 02/11/19 Magnesium Oxide* (Magnesium Oxide*) 400 Mg Tablet, 400 MG PO DAILY, TAB 02/11/19 Follow-up Plan 3 4 days after discharge entering the office or at home by primary care physician,. In [address] Alejandro In 2 weeks by logistics operations director Dr. Alvarez. Primary Care Provider Princess Whitaker MD Time spent on discharge: > 30 minutes PRINCESS WHITAKER MD Jun 12, 2019 08:48
[2019-06-12] MEDS: DOCUSATE SODIUM 10 MG/ML (10ML CUP) GTB SCH (09:00)
[2019-06-12] MEDS: SACUBITRIL/VALSARTAN (24mg-26mg) TABLET PO SCH (09:00)
[2019-06-12] MEDS ORDERED: AMIODARONE 200 MG TAB GTB SCH (09:00)
[2019-06-12] MEDS ORDERED: POTASSIUM CHLORIDE 20 MEQ POWDER FOR ORAL SOLN GTB SCH (09:00)
[2019-06-12] MEDS: METOPROLOL (XL) 25 MG TAB PO SCH (09:00)
[2019-06-12] MEDS: FOLIC ACID 1 MG TAB PO SCH (09:10)
[2019-06-12] MEDS: MEGESTROL 40 MG TAB PO SCH ×2 (09:11→13:26)
[2019-06-12] MEDS: MAGNESIUM OXIDE 400 MG TAB PO SCH (09:11)
[2019-06-12 11:35] VITALS: BP 89/50; PULSE 87; RESP 18
--- NOTE | 2019-06-12 11:53 | CONS ---
Consult Date/Type/Reason Admit Date/Time May 27, 2019 at 13:49 Initial Consult Date 06/10/19 Type of Consult Pulmonary Requesting Provider: PEDRO KRUSE MD Date/Time of Note DATE: 06/12/19 TIME: 11:53 Subjective No new change events. Patient stable this morning no respiratory distress Objective Vital Signs Date Temp Pulse Resp B/P (MAP) Pulse Ox O2 O2 Flow FiO2 Time Delivery Rate 06/12/19 97.8 87 18 89/50 (63) 95 Room Air 11:35 06/11/19 21 23:33 06/11/19 2.0 22:24 Intake and Output 06/11/19 06/11/19 06/12/19 1515:00 23:00 07:00 IntakeIntake Total 140 ml 120 ml BalanceBalance 140 ml 120 ml Exam GENERAL: Elderly [place] lady comfortable. VITAL SIGNS: per chart NECK: Supple. No JVD or lymphadenopathy. CARDIAC EXAM: S1, S2. No added sounds or murmurs. CHEST: clear bilaterally, No added sounds, rales or wheezes ABDOMEN: Soft, nontender. No guarding or rebound. EXTREMITIES: No cyanosis, clubbing or edema. NEUROLOGIC: Generalized weakness. No focal deficits. Vent Setting Fraction of Inspired Oxygen pe: 21 Results/Medications Result Diagram: 06/09/1954106/09/19 05 Medications Current Medications Aspirin (Aspirin) 81 mg DAILY PO Last administered on 05/30/19 09:09; Admin Dose 81 MG; Start 05/27/19 at 18:30; Status Hold Clopidogrel Bisulfate (plaVIX) 75 mg DAILY PO Last administered on 05/30/19 09:07; Admin Dose 75 MG; Start 05/27/19 at 18:30; Status Hold Folic Acid (Folic Acid) 1 mg DAILY PO Last administered on 06/12/19 09:10; Admin Dose 1 MG; Start 05/27/19 at 18:30 Magnesium Oxide (Mag-Ox 400) 400 mg DAILY PO Last administered on 06/12/19 09:11; Admin Dose 400 MG; Start 05/27/19 at 18:30 Megestrol Acetate (Megace) 40 mg TID PO Last administered on 06/12/19 09:11; Admin Dose 40 MG; Start 05/27/19 at 21:00 Nystatin (Nystatin Susp) 5 ml Q4 PO Last administered on 06/11/19 06:11; Admin Dose 5 ML; Start 05/27/19 at 21:00 Sacubitril/ Valsartan (Entresto 24 Mg-26 Mg) 1 tab BID PO Last administered on 06/11/19 22:37; Admin Dose 1 TAB; Start 05/27/19 at 21:00 Ondansetron HCl (Zofran Inj) 4 mg Q4H PRN IV NAUSEA AND/OR VOMITING Last administered on 06/09/19 15:40; Admin Dose 4 MG; Start 05/27/19 at 18:30 Acetaminophen (Tylenol Tab) 500 mg Q6H PRN PO MILD PAIN(1-3)OR ELEVATED TEMP Last administered on 06/10/19 22:50; Admin Dose 500 MG; Start 05/27/19 at 18:30 Albuterol/ Ipratropium (Duoneb) 3 ml Q6H RESP THERAPY PRN HHN SHORTNESS OF BREATH Last administered on 06/11/19 13:00; Admin Dose 3 ML; Start 05/27/19 at 18:30 Miscellaneous Information (Pending [facility] Order For Wound Care) This patient meyer... PRN PRN XX WOUND CARE; Start 05/27/19 at 20:00 Digoxin (Digoxin) 0.125 mg DAILY@1300 PO Last administered on 06/11/19 13:34; Admin Dose 0.125 MG; Start 05/28/19 at 13:00 Metoprolol Succinate (Toprol Xl) 12.5 mg DAILY PO Last administered on 06/10/19 09:27; Admin Dose 12.5 MG; Start 05/30/19 at 09:00 Levothyroxine Sodium (Synthroid) 100 mcg BEFORE BREAKFAST PO Last administered on 06/12/19 05:33; Admin Dose 100 MCG; Start 06/01/19 at 07:00 Albuterol/ Ipratropium (Duoneb) 3 ml Q8H RESP THERAPY HHN Last administered on 06/10/19 01:10; Admin Dose 3 ML; Start 06/03/19 at 00:00 Docusate Sodium (Colace Liquid Cup) 100 mg BID GTB Last administered on 06/04/19 08:49; Admin Dose 100 MG; Start 06/03/19 at 21:00 Lorazepam (Ativan) 1 mg QHS PRN PO INSOMNIA; Start 06/03/19 at 17:30 Lidocaine (Lidoderm) 1 patch Q24H TD Last administered on 06/10/19at 17:58; Admin Dose 1 PATCH; Start 06/09/19 at 17:00 Furosemide (Lasix) 40 mg BID DIURETICS PO Last administered on 06/11/19at 18:05; Admin Dose 40 MG; Start 06/10/19 at 18:00 Bisacodyl (Dulcolax Supp) 10 mg DAILY PRN [place] CONSTIPATION Last administered on 06/11/19at 22:37; Admin Dose 10 MG; Start 06/11/19 at 22:30 Potassium Chloride (Potassium Chloride Pwd/Soln) 20 meq DAILY GTB Last administered on 06/12/19at 10:49; Admin Dose 20 MEQ; Start 06/12/19 at 09:00 Assessment/Plan Hospital Course (Demo Recall) Assessment, plan 1. Extensive esophageal mass with local spread. Tracheoesophageal fistula ulcer. Case was discussed with GI at length. No benefit from bronchoscopy at this point as this would not add to patient's management. Also risk of prolonged intubation and mechanical ventilation following bronchoscopy given patient's multiple comorbidities. 2. Consider referral to tertiary care center for evaluation by thoracic surgery. Overall prognosis is poor. 3. History of Hodgkin's lymphoma 4. History of heart failure with reduced ejection fraction of 25%. Case was discussed with GI at length I recommend transfer to tertiary care facility given the complexity of her disease. SANTA HARRISON MD, [facility] Jun 12, 2019 11:53
[2019-06-12] MEDS ORDERED: POTASSIUM CHLORIDE (SR) 20 MEQ TAB PO STA (13:08)
--- NOTE | 2019-06-12 13:08 | CONS ---
Assessment/Plan Assessment/Plan Hospital Course (Demo Recall) IMPRESSION: 1. Preoperative evaluation prior to endoscopy for evaluation of the patient's dysphagia and odynophagia, in a patient that has a severely depressed ejection fraction, mild infiltrates on her chest x-ray but not in gross decompensated congestive heart failure, able to lie flat with good saturations and a recent catheterization in April revealing patent stents.- Now post-op s/p endoscopy with findings of esophageal mass. Now postop s/p G tube placement 2. Cardiomyopathy with severely depressed left ventricular ejection fraction. 3. Congestive heart failure, systolic, [id number]. 4. Dysphagia and odynophagia now s/p G tube 5. Vocal cord paresis. 6. Hypothyroidism. 7. History of percutaneous transluminal coronary angioplasty and stent placement, patent via catheterization 04/2019, with most recent stents actually placed in 2016, with a type 2 non-ST elevated myocardial infarction prior to last catheterization, and a stress test 02/2019, revealing no reversible ischemia with ejection fraction of 19%. 8. [id number]. 9. Lymphoma Hodgkin's ongoing status post chemotherapy. 10. History of cerebrovascular accident. 11. Hypertension. 12. Dyslipidemia. 13. Hypothyroidism. 14. Urinary incontinence. 15. Psychiatric disorder. 16. Nonsustained ventricular tachycardia- neg trop x 3 17. H/O implantable cardioverter-defibrillator. Recc: -Tele -serial ecg's -Contineu toprol/entresto as tolerated aas held today due to low/marginal BP -continue digoxin as patient will comply -Now s/p repeat Bx mutiple days and thus will resume asa/plavix, f/u pathology -Continue lasix diuresis but will decrease to daily as Bun/planner/scheduler ratio increasing and patient with holding of medications -s/p d/c imdur given marginal BP -keep K>4 and Mg>2 Consultation Date/Type/Reason Admit Date/Time May 27, 2019 at 13:49 Initial Consult Date 05/29/19 Type of Consult Cardiology Reason for Consultation CHF Requesting Provider: PEDRO KRUSE MD Date/Time of Note DATE: 06/12/19 TIME: 13:05 Exam/Review of Systems Vital Signs Vitals Vital Signs Date Temp Pulse Resp B/P (MAP) Pulse Ox O2 O2 Flow FiO2 Time Delivery Rate 06/12/19 97.8 87 18 89/50 (63) 95 Room Air 11:35 06/11/19 21 23:33 06/11/19 2.0 22:24 Intake and Output 06/11/19 06/11/19 06/12/19 1515:00 23:00 07:00 IntakeIntake Total 140 ml 120 ml BalanceBalance 140 ml 120 ml Exam Exam Review of Systems: CONSTITUTIONAL: No fevers, chills. PULMONARY: No sob CARDIOVASCULAR: No chest pain/palpitations GASTROINTESTINAL:dysphagia GENITOURINARY: No hematuria/dysuria. MUSCULOSKELETAL: No myagias/arthalgias. PSYCHIATRIC: The patient denies depression. NEUROLOGIC: No weakness Constitutional: alert Psych: no complaints Head: normocephalic ENMT: mucosa pink and moist Neck: supple, jvd (9 cm water) Respiratory: diminished breath sounds (at bases/B) Cardiovascular: regular rate and rhythm Gastrointestinal: soft, non-tender Musculoskeletal: muscle weakness (generalized) Extremities: edema (none) Labs Result Diagram: 06/09/1943 06/09/19541 Medications Medications Current Medications Aspirin (Aspirin) 81 mg DAILY PO Last administered on 05/30/19 09:09; Admin Dose 81 MG; Start 05/27/19 at 18:30; Status Hold Clopidogrel Bisulfate (plaVIX) 75 mg DAILY PO Last administered on 05/30/19at 09:07; Admin Dose 75 MG; Start 05/27/19 at 18:30; Status Hold Folic Acid (Folic Acid) 1 mg DAILY PO Last administered on 06/12/19 09:10; Admin Dose 1 MG; Start 05/27/19 at 18:30 Magnesium Oxide (Mag-Ox 400) 400 mg DAILY PO Last administered on 06/12/19 09:11; Admin Dose 400 MG; Start 05/27/19 at 18:30 Megestrol Acetate (Megace) 40 mg TID PO Last administered on 06/12/19 09:11; Admin Dose 40 MG; Start 05/27/19 at 21:00 Nystatin (Nystatin Susp) 5 ml Q4 PO Last administered on 06/11/19 06:11; Admin Dose 5 ML; Start 05/27/19 at 21:00 Sacubitril/ Valsartan (Entresto 24 Mg-26 Mg) 1 tab BID PO Last administered on 06/11/19 22:37; Admin Dose 1 TAB; Start 05/27/19 at 21:00 Ondansetron HCl (Zofran Inj) 4 mg Q4H PRN IV NAUSEA AND/OR VOMITING Last administered on 06/09/19 15:40; Admin Dose 4 MG; Start 05/27/19 at 18:30 Acetaminophen (Tylenol Tab) 500 mg Q6H PRN PO MILD PAIN(1-3)OR ELEVATED TEMP Last administered on 06/10/19 22:50; Admin Dose 500 MG; Start 05/27/19 at 18:30 Albuterol/ Ipratropium (Duoneb) 3 ml Q6H RESP THERAPY PRN HHN SHORTNESS OF BREATH Last administered on 06/11/19 13:00; Admin Dose 3 ML; Start 05/27/19 at 18:30 Miscellaneous Information (Pending [facility] Order For Wound Care) This patient meyer... PRN PRN XX WOUND CARE; Start 05/27/19 at 20:00 Digoxin (Digoxin) 0.125 mg DAILY@1300 PO Last administered on 06/11/19 13:34; Admin Dose 0.125 MG; Start 05/28/19 at 13:00 Metoprolol Succinate (Toprol Xl) 12.5 mg DAILY PO Last administered on 06/10/19 09:27; Admin Dose 12.5 MG; Start 05/30/19 at 09:00 Levothyroxine Sodium (Synthroid) 100 mcg BEFORE BREAKFAST PO Last administered on 06/12/19 05:33; Admin Dose 100 MCG; Start 06/01/19 at 07:00 Albuterol/ Ipratropium (Duoneb) 3 ml Q8H RESP THERAPY HHN Last administered on 06/10/19 01:10; Admin Dose 3 ML; Start 06/03/19 at 00:00 Docusate Sodium (Colace Liquid Cup) 100 mg BID GTB Last administered on 06/04/19 08:49; Admin Dose 100 MG; Start 06/03/19 at 21:00 Lorazepam (Ativan) 1 mg QHS PRN PO INSOMNIA; Start 06/03/19 at 17:30 Lidocaine (Lidoderm) 1 patch Q24H TD Last administered on 06/10/19 17:58; Admin Dose 1 PATCH; Start 06/09/19 at 17:00 Furosemide (Lasix) 40 mg BID DIURETICS PO Last administered on 06/11/19at 18:0 5; Admin Dose 40 MG; Start 06/10/19 at 18:00 Bisacodyl (Dulcolax Supp) 10 mg DAILY PRN [place] CONSTIPATION Last administered on 06/11/19at 22:37; Admin Dose 10 MG; Start 06/11/19 at 22:30 Potassium Chloride (Potassium Chloride Pwd/Soln) 20 meq DAILY GTB Last administered on 06/12/19at 10:49; Admin Dose 20 MEQ; Start 06/12/19 at 09:00 ARIEL HOBBS Jun 12, 2019 13:08
[2019-06-12] MEDS: DIGOXIN 0.125 MG TAB PO SCH (13:26)
[2019-06-12 15:35] VITALS: BP 110/74; PULSE 71; RESP 20
[2019-06-12] MEDS: POTASSIUM CHLORIDE 20 MEQ POWDER FOR ORAL SOLN GTB ONE ×2 (15:35→15:36)
--- NOTE | 2019-06-12 17:10 | CONS ---
Assessment/Plan Assessment/Plan Hospital Course (Demo Recall) Hodgkin lymphoma- s/p chemotherapy PT HAS HX PROGRESSIVE REFRACTOPY DIS POST CHEMO AMD IMMUNOTHERAPY, MOST RECENT PET/CT SHOWED SOME IMPROVEMENT DYSPHAGIA, Extensive esophageal mass with local spread. Tracheoesophageal fistula ulcer. PER PULM- " No benefit from bronchoscopy at this point as this would not add to patient's management." Also risky procedure GI F-UP POST EGD/BX, PATH- A-Esophagus, biopsy: -- Squamous epithelium showing severe acute inflammation, ulcer and granulation tissue formation. D/W [facility] Anemia WITH COMPONENT ACD monitor Severe respiratory distress improving. HX IHD angina, Low LVEF dropped. Findings most consistent with mild ADHF with associated type II NSTEMI HX Pulmonary edema Osteoarthritis with pain syndrome Anxiety disorder. Depression with grief reaction-s/p loss of . Urinary incontinence. Osteoporosis. Kyphosis. Postmenopausal syndrome. Brain atrophy on CT. Left sphenoid sinusitis on CT. Left ventricular hypertrophy. Urinary incontinence. Cerebrovascular accident, with left facial drooling, left facial weakness, with slurred speech and dysphagia. Mild left upper extremity weakness.mostly co rrected. Hypertension, now normotensive. HX of PTCA with one sent and 3 balloon dilatation of narrow coronary arteries(; Medication noncompliance. Consultation Date/Type/Reason Admit Date/Time May 27, 2019 at 13:49 Initial Consult Date Type of Consult [facility] Requesting Provider: PEDRO KRUSE MD Date/Time of Note DATE: 06/12/19 TIME: 17:10 Exam/Review of Systems Exam Vitals Vital Signs Date Temp Pulse Resp B/P (MAP) Pulse Ox O2 O2 Flow FiO2 Time Delivery Rate 06/12/19 97.5 71 20 110/74 98 Room Air 15:35 (86) 06/11/19 21 23:33 06/11/19 2.0 22:24 Intake and Output 06/11/19 06/11/19 06/12/19 1515:00 23:00 07:00 IntakeIntake Total 140 ml 120 ml BalanceBalance 140 ml 120 ml Results Result Diagram: 06/09/19 0542 06/09/19 0542 Medications Medication Current Medications Aspirin (Aspirin) 81 mg DAILY PO Last administered on 05/30/19at 09:09; Admin Dose 81 MG; Start 05/27/19 at 18:30; Status Hold Clopidogrel Bisulfate (plaVIX) 75 mg DAILY PO Last administered on 05/30/19 09:07; Admin Dose 75 MG; Start 05/27/19 at 18:30; Status Hold Folic Acid (Folic Acid) 1 mg DAILY PO Last administered on 06/12/19 09:10; Admin Dose 1 MG; Start 05/27/19 at 18:30 Magnesium Oxide (Mag-Ox 400) 400 mg DAILY PO Last administered on 06/12/19 09:11; Admin Dose 400 MG; Start 05/27/19 at 18:30 Megestrol Acetate (Megace) 40 mg TID PO Last administered on 06/12/19 13:26; Admin Dose 40 MG; Start 05/27/19 at 21:00 Nystatin (Nystatin Susp) 5 ml Q4 PO Last administered on 06/11/19 06:11; Admin Dose 5 ML; Start 05/27/19 at 21:00 Sacubitril/ Valsartan (Entresto 24 Mg-26 Mg) 1 tab BID PO Last administered on 06/11/19 22:37; Admin Dose 1 TAB; Start 05/27/19 at 21:00 Ondansetron HCl (Zofran Inj) 4 mg Q4H PRN IV NAUSEA AND/OR VOMITING Last administered on 06/09/19 15:40; Admin Dose 4 MG; Start 05/27/19 at 18:30 Acetaminophen (Tylenol Tab) 500 mg Q6H PRN PO MILD PAIN(1-3)OR ELEVATED TEMP Last administered on 06/10/19 22:50; Admin Dose 500 MG; Start 05/27/19 at 18:30 Albuterol/ Ipratropium (Duoneb) 3 ml Q6H RESP THERAPY PRN HHN SHORTNESS OF BREATH Last administered on 06/11/19 13:00; Admin Dose 3 ML; Start 05/27/19 at 18:30 Miscellaneous Information (Pending Santyl Order For Wound Care) This patient meyer... PRN PRN XX WOUND CARE; Start 05/27/19 at 20:00 Digoxin (Digoxin) 0.125 mg DAILY@1300 PO Last administered on 06/12/19 13:26; Admin Dose 0.125 MG; Start 05/28/19 at 13:00 Metoprolol Succinate (Toprol Xl) 12.5 mg DAILY PO Last administered on 06/10/19 09:27; Admin Dose 12.5 MG; Start 05/30/19 at 09:00 Levothyroxine Sodium (Synthroid) 100 mcg BEFORE BREAKFAST PO Last administered on 06/12/19 05:33; Admin Dose 100 MCG; Start 06/01/19 at 07:00 Albuterol/ Ipratropium (Duoneb) 3 ml Q8H RESP THERAPY HHN Last administered on 06/10/19 01:10; Admin Dose 3 ML; Start 06/03/19 at 00:00 Docusate Sodium (Colace Liquid Cup) 100 mg BID GTB Last administered on 06/04/19 08:49; Admin Dose 100 MG; Start 06/03/19 at 21:00 Lorazepam (Ativan) 1 mg QHS PRN PO INSOMNIA; Start 06/03/19 at 17:30 Lidocaine (Lidoderm) 1 patch Q24H TD Last administered on 06/10/19 17:58; Admin Dose 1 PATCH; Start 06/09/19 at 17:00 Bisacodyl (Dulcolax Supp) 10 mg DAILY PRN IA CONSTIPATION Last administered on 06/11/19 22:37; Admin Dose 10 MG; Start 06/11/19 at 22:30 Potassium Chloride (Potassium Chloride Pwd/Soln) 20 meq DAILY GTB Last administered on 06/12/19 10:49; Admin Dose 20 MEQ; Start 06/12/19 at 09:00 Furosemide (Lasix) 40 mg DAILY PO ; Start 06/13/19 at 09:00 KALPANA ANGELES MD Jun 12, 2019 17:10
[2019-06-13] MEDS ORDERED: FUROSEMIDE 40 MG TAB PO SCH (09:00)
== END 2019-06-12 17:21 | DRG 391 ==
LOC: E/R 10:04 → 6WM 13:49
PROVIDERS: ADMIT Family Medicine; ATTEND Family Medicine
PROC: 0DB18ZX Excision of Upper Esophagus, Via Natural or Artificial Opening Endoscopic, Diagnostic (ICD-10-PCS; principal; 2019-05-29 13:30)
PROC: 0DH63UZ Insertion of Feeding Device into Stomach, Percutaneous Approach (ICD-10-PCS; 2019-06-01)
PROC: 0DB18ZX Excision of Upper Esophagus, Via Natural or Artificial Opening Endoscopic, Diagnostic (ICD-10-PCS; 2019-06-07 13:30)
DX: R13.12 Dysphagia, oropharyngeal phase (principal); J86.0 Pyothorax with fistula; J81.1 Chronic pulmonary edema; I42.9 Cardiomyopathy, unspecified; I47.2 Ventricular tachycardia; K22.10 Ulcer of esophagus without bleeding; C81.90 Hodgkin lymphoma, unspecified, unspecified site; I50.22 Chronic systolic (congestive) heart failure; J38.01 Paralysis of vocal cords and larynx, unilateral; K22.8 Other specified diseases of esophagus; Z95.5 Presence of coronary angioplasty implant and graft; I20.8 Other forms of angina pectoris; F41.8 Other specified anxiety disorders; F43.20 Adjustment disorder, unspecified; R32 Unspecified urinary incontinence; M81.0 Age-related osteoporosis without current pathological fracture; I69.992 Facial weakness following unspecified cerebrovascular disease; I69.928 Other speech and language deficits following unspecified cerebrovascular disease; I69.991 Dysphagia following unspecified cerebrovascular disease; R13.10 Dysphagia, unspecified; Z91.14 Patient's other noncompliance with medication regimen; R63.4 Abnormal weight loss; Z68.23 Body mass index [BMI] 23.0-23.9, adult; I25.118 Atherosclerotic heart disease of native coronary artery with other forms of angina pectoris; K21.9 Gastro-esophageal reflux disease without esophagitis; K29.00 Acute gastritis without bleeding; E03.9 Hypothyroidism, unspecified; Z95.0 Presence of cardiac pacemaker; I11.0 Hypertensive heart disease with heart failure; I25.2 Old myocardial infarction; M53.1 Cervicobrachial syndrome
CPT/HCPCS: 70492; 71045; 71270; 74177; 80048; 80053; 80061; 80162; 81001; 82150; 82378; 82962; 83540; 83605; 83690; 83735; 83880; 84100; 84443; 84484; 85025; 85610; 85651; 85730; 87070; 87086; 88104; 88305; 88312; 88313; 92526; 92610; 93005; 94640; 94664; 96374; 96375; 97162; J1100; J1940; J2250; J2270; J2405; J2765; J3010; J7030; J7042; Q9967